=== PATIENT | female | born 1945 | race Caucasian/White ===

== ENCOUNTER → 2017-11-18 12:30 | Outpatient (CLI) | payer MEDICARE, SELFPAY ==
[2017-11-18 13:30] LABS: Creatinine, Serum 0.46 mg/dL (0.55-1.02); EST Glomerular Filtration Rate 143 mL/min (>60); Est Glom Filt Rate - Afr Amer 173 mL/min (>60)
== END ==
PROVIDERS: Family Provider Internal Medicine; PCP Internal Medicine
DX: Z01.812 Encounter for preprocedural laboratory examination (principal)
CPT/HCPCS: 36415; 82565

== ENCOUNTER 2017-11-19 16:08 | Emergency (ER) | payer MEDICARE, SELFPAY ==
[2017-11-19 16:09] VITALS: BP 140/84; PULSE 65; RESP 18; TEMP 36.2; O2SAT 97; BMI 11.2
--- NOTE | 2017-11-19 16:58 | US_ITS ---
STUDY: VENOUS DOPPLER ULTRASOUND - LEFT LOWER EXTREMITY REASON FOR EXAM: Female, 72 years old. Medial thigh pain TECHNIQUE: Ultrasound evaluation of the deep vein system to include burroughs-scale imaging and compression was performed. Burroughs-scale imaging and Doppler sonographic evaluation, including duplex spectral analysis and qualitative color flow sonography, was performed. COMPARISON: None. FINDINGS: Common Femoral Vein: Normal compression, spontaneity and augmentation. Normal color Doppler. Common Femoral Vein/Greater Saphenous Junction: Normal color flow. Deep Femoral Vein: Not visualized. Femoral Proximal: Normal color flow. Femoral Middle: Normal compression, spontaneity and augmentation. Normal color Doppler. Femoral Distal: Normal color flow. Popliteal Vein: Normal compression, spontaneity and augmentation. Normal color Doppler. Posterior Tibial Vein: Normal color flow. Peroneal Vein: Normal color flow. US/Venous Duplex Imag/Limited/Uni IMPRESSION: Left lower extremity venous Doppler exam negative for DVT. Electronically Signed: Chen Chen MD at 17:49 EDT , Service support ,
--- NOTE | 2017-11-19 18:06 | ED.VISSUMM ---
- ER Visit Summary Date of Service: 11/19/17 Chief Complaint: Left lower extremity pain and swelling since Friday History of Present Illness: The patient is a 72 F status post spine surgery October 22 who presents with pain and swelling of her left lower extremity since Friday. She is on Coumadin. INR is 2.6 as of yesterday. She states 2 weeks ago was greater than 5. She denies history of trauma. She denies chest pain or shortness of breath. She denies fever, chills night sweats. She denies hematuria, dysuria frequency urgency. She denies any back pain. She denies black or maroon stool. She noted a bruise this morning. The bruises up medial left thigh. There is tenderness to palpation. Physical Examination: Vital signs remarkable slight elevation blood pressure 140/84. HEENT exam is unremarkable. Heart is regular without murmur, gallop or rub. S1 and S2 are normal. Lungs are clear to auscultation with good movement of air bilaterally. Abdomen soft nontender normal bowel sounds. No palpable cell mass abdominal bruit. Femoral pulses are palpable bilaterally. DP PT pulses are palpable bilaterally. The left lower extremity is swollen compared to the right. There is an area of ecchymosis. Leg veins are not distended. She does have tenderness in the calf as well. There is no bruising noted over the calf. Test Results: Ultrasound of the leg reveals a hematoma with no evidence of blood clot Emergency Department Course and Treatment: Differential is hematoma versus blood clot. Since patient's well score is 3 and her entire leg is swollen concerned that this may represent a DVT. Therefore a venous duplex was obtained. Treatment Plan: Appropriate home-going instructions Disposition: Discharge to home Impression: Left leg pain and swelling secondary to hematoma High risk medication, Coumadin This note was generated with orangutrans dictation software. It may contain incorrect words, spelling, and punctuation that were not noted in review of the chart prior to signing ED Disposition - Plan for ED Patient: Disposition: Home or Assisted Living Chief Complaint: Lower Extremity Injury Instructions: ED Hematoma Referrals: Tasneem Beck MD [Primary Care Provider] - As Needed
--- NOTE | 2017-11-19 18:11 | ED.DCSUM_ITS ---
- ER Visit Summary Date of Service: 11/19/17 Chief Complaint: Left lower extremity pain and swelling since Friday History of Present Illness: The patient is a 72 F status post spine surgery October 22 who presents with pain and swelling of her left lower extremity since Friday. She is on Coumadin. INR is 2.6 as of yesterday. She states 2 weeks ago was greater than 5. She denies history of trauma. She denies chest pain or shortness of breath. She denies fever, chills night sweats. She denies hematuria, dysuria frequency urgency. She denies any back pain. She denies black or maroon stool. She noted a bruise this morning. The bruises up medial left thigh. There is tenderness to palpation. Physical Examination: Vital signs remarkable slight elevation blood pressure 140 /84. HEENT exam is unremarkable. Heart is regular without murmur, gallop or rub. S1 and S2 are normal. Lungs are clear to auscultation with good movement of air bilaterally. Abdomen soft nontender normal bowel sounds. No palpable cell mass abdominal bruit. Femoral pulses are palpable bilaterally. DP PT pulses are palpable bilaterally. The left lower extremity is swollen compared to the right. There is an area of ecchymosis. Leg veins are not distended. She does have tenderness in the calf as well. There is no bruising noted over the calf. Test Results: Ultrasound of the leg reveals a hematoma with no evidence of blood clot Emergency Department Course and Treatment: Differential is hematoma versus blood clot. Since patient's well score is 3 and her entire leg is swollen concerned that this may represent a DVT. Therefore a venous duplex was obtained. Treatment Plan: Appropriate home-going instructions Disposition: Discharge to home Impression: Left leg pain and swelling secondary to hematoma High risk medication, Coumadin This note was generated with [employer] dictation software. It may contain incorrect words, spelling, and punctuation that were not noted in review of the chart prior to signing ED Disposition - Plan for ED Patient: Disposition: Home or Assisted Living Chief Complaint: Lower Extremity Injury Instructions: ED Hematoma Referrals: Tasneem Beck MD [Primary Care Provider] - As Needed
[2017-11-19 18:16] VITALS: BP 106/40; RESP 18
[2017-11-19 18:17] VITALS: BP 106/40
== END 2017-11-19 18:17 | disposition home or self-care (01) ==
PROVIDERS: Emergency Provider Emergency Medicine; Family Provider Internal Medicine; PCP Internal Medicine
DX: S70.12XA Contusion of left thigh, initial encounter (principal); M79.652 Pain in left thigh; M79.89 Other specified soft tissue disorders; Z79.01 Long term (current) use of anticoagulants; Z79.891 Long term (current) use of opiate analgesic; Z79.899 Other long term (current) drug therapy; X58.XXXA Exposure to other specified factors, initial encounter; Y93.9 Activity, unspecified; Y92.9 Unspecified place or not applicable; Y99.9 Unspecified external cause status
CPT/HCPCS: 93971; 99282

== ENCOUNTER → 2017-11-25 16:05 | Outpatient (CLI) | payer MEDICARE, SELFPAY ==
--- NOTE | 2017-11-25 16:30 | MRI_ITS ---
MR Spine Lumbar WO/W Contrast INDICATION: Stenosis. Pt had spinal decompression surgery of L3 thru L5 on 10/22/17 and was doing well until 2 weeks ago when she began having pain again. No known new injury COMPARISON: December 2014 TECHNIQUE: Multiplanar multisequence MRI examination of the lumbar spine without and with IV contrast. 7 mL of Gadavist were given intravenously. FINDINGS: There is stable minimal retrolisthesis of L1 on L2, otherwise normal lumbar lordosis. There are stable postsurgical changes at the L5-S1 level with discectomy and disc spacer placement. New from the prior study are bilateral laminectomies at L3-4 and L4-5 without evidence of surgical hardware placement. There is no abnormal postoperative fluid collection and no abnormal epidural collection. The lumbar spinal canal and dural sac are normal in caliber. Bilateral foraminal disc osteophytes are present at L1-2 with mild to moderate bilateral neuroforaminal narrowing. Marginal disc osteophytes at L3-4 and L4-5 results in moderate bilateral neuroforaminal narrowing, similar compared to the previous exam. MRI/Spine Lumbar W/WO Contrast IMPRESSION: New postsurgical changes from bilateral laminectomies at L3-4 and L4-5. No abnormal postsurgical findings, no evidence of hemorrhage/abnormal fluid collection or spinal canal narrowing at any level Stable degenerative changes with marginal disc osteophytes resulting in neuroforaminal narrowing at L1-L2, L3-4, and L4-5. at 1901 Reported and signed by: Lissette Kramer MD Electronically Signed: Lissette Kramer MD at 18:59 EDT Tel , Service support ,
== END ==
PROVIDERS: Family Provider Internal Medicine; PCP Internal Medicine; Visit Provider Nurse Practitioner Acute Care
DX: M48.061 Spinal stenosis, lumbar region without neurogenic claudication (principal)
CPT/HCPCS: 72158; A9585

== ENCOUNTER 2017-12-26 12:00 | Outpatient (RCR) | payer MEDICARE, SELFPAY ==
--- NOTE | 2017-11-19 12:19 | HP.PTEVAL ---
Patient's Visit Information EMILE KITCHEN is a 72 year old F referred to Physical Therapy by Latoya Mayorga, with a diagnosis of Revision laminectomy L345 and formanotomy L35, microdiscectomy L345 B. Date of Evaluation: 11/19/17 Physical Therapist: Trenton Gibbons DPT, OC - Visit Plan Frequency: 3x /Week Duration: 4-6 Weeks Plan: Pt will contact family doctor regarding her worries about possible blood clot to calm her fears and diagnose as needed. 3x/week for 4-6 initially for LB ROMas tolerated starting 5/3 if doing well...in the meantime, LE strengthening to tolerance, isometric LB and core strengthening activities. Modalities for pain control as needed. Eventual progression to body mechanics and RTW activities. Pt is currently awaitiing MRI for LB as doctor thinks she may have reherniated(according to patient) and will hold on PT until that is done or condition improves. Pain in L adductor and outside hip has unusual onset and presentation) - Subjective Subjective: Had laminectomy and foraminotomy L3-5 10/22 and was doing well. Was doing great until last Friday when she got L leg pain suddently and numby /tingly. Was insidious onset just getting up from chair. Thsi pain has been very limiting for the last 4 days but slightly better. Prior to surgery had L hip and side pain. Had pain management injections which helped for 3 weeks initially then less. Saw surgeon Dr. Latif and had MRI and needed this back surgery as the pain was coming from her back. That pain was gone. Numbness remains in L post hip from previous RFD treatment. Current pain is posterior hip on L and groin. This pain came all of a sudden last Friday. Makes it hard to sit on toilet. Transferring from sit tostand and vice versa is painful. Will have an MRI next week on Friday as she saw surgeon and he thinks she is herniated again. Not sleeping really well since last Friday. 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 Is off until at least January 14. Currently not allowed to bend over as she cannot due to this new pain. 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 Dresses self with increased time and modifications, using bench for shower. HEP is UE and LE movements sitting in chair and lying and doing LE ROM. They hurt tooo much since last Friday. Uses cane now for pain as L WB is hard, did not need it prior to last Friday getting worse. - Pain L LB and groin Pain Intensity (Out of 10): 8 Pain Intensity Range: 5, 9 Comment: constant since last . - Objective Uses cane and wide JD to walk slow and L antalgia. Transfers are I with UE but painful. Throbbing. can walk without cane but more antalgia. Trasnferring to and fro supine I btui painful appearing shear force is problem. Very tender L adductor group, also painful to contract and stretch this muscle group. Mildly tender anterior lateral hip to palpation adn stretch, 0 degrees extension secondary to pain on L side. L Hip AROM WFL but slow and painful. L knee AROM WFL slow extension - slump and SLR. L ankle and R ankle full aROM and 4/5 strength. L knee 4-/5 flex and ext strength as is R. Hip L 3+ in all directions due to pain with contractions. Patient sits I buit takes weight off L side. reflexes 1/3 patella and achilles R and L. Sensation diminished in L lateral posterior leg to trochanter minimially. LB AROM ext to neutral and increase L LB pain, flexion is 75% limited and uncomfortable, B SB mod limited. Overall presentation is antalgic to WB L side and shear force to transition up/down to supine very painful. - Goals Goal 1:: Patient painfree at rest and walk without antalgia 300 feet without AD> Goal Time Frame: 4-6 Weeks Goal 2:: Patient safe and I to ambulate into and out of grocery and restaurants. Goal Time Frame: 4-6 Weeks Goal 3:: pateint sleep without interruption Goal Time Frame: 4-6 Weeks Goal 4:: I approp HEP to minimize future problems. Goal Time Frame: 4-6 Weeks Goal 5:: Plan to return to work. Goal Time Frame: 4-6 Weeks Goal 6:: Shoes and socks on and dress without need for low pressure boiler operator. Goal Time Frame: 4-6 Weeks - Rehabilitation Potential Physical Therapy Diagnosis: S/P LB surgery revision. Was subjectively doing well until sudden onset increased pain last Friday and continues to be hard to walk due to L groin and post hip pain. Has seen surgeon and will have MRI next week. Rehabilitation Potential: Fair - Anticipated Interventions Patient/Client Instruction: Educate patient on: Condition, Plan of Care For the Purpose of:: To decrease pain, To increase ROM, To improve ability to perform ADL's Therapeutic Exercise to Include: Strength training, Passive ROM, Active ROM, Dynamic Lumbar Stabilization For the Purpose of:: To decrease pain, To increase ROM, To improve muscle performance and motor function, To improve performance and independence with ADL's, To improve ability of physical actions for home/community/work/leisure, To improve gait and locomotor functions TENS: Yes Cryotherapy (ice pack, ice massage): Yes Comment: careful with numbness. For the Purpose of:: To decrease pain Thank you for the opportunity to evaluate your patient. For Medicare and Medicare HMO plans, please review the plan of care and approve it. It will need to be FAXED BACK to us at [phone] for Medicare purposes. Please let me know if there are questions or concerns regarding this plan of care. Physician Signature: Date:
--- NOTE | 2018-03-05 12:12 | HP.PTDCSUM_ITS ---
HP - PT D/C Summary It has been my pleasure to treat EMILE KITCHEN under orders from Latoya Mayorga, , for the diagnosis of Revision laminectomy L345 and formanotomy L35 , microdiscectomy L345 B for a total of 7 visit(s). Discharge Date: 12/26/17 Please see the following information for a summary of their discharge status. - Subjective Subjective: A lot better. Not in a lot of pain to 1-2/10 Worse in evenings if overdoes it with cleaning pool, mowing lawn etc. Sleeping good on ambien. Fell about two weeks ago and landed on Left arm adn hip but did not hurt back. Will be on vacation next week and wants to return on the 01/12. Steps can still be an issue wth weight through L leg hurting tailbone area.(Been that way since before surgery). - Pain L LB and groin Pain Intensity (Out of 10): 2 - Objective Objective/Function: R leg 3/8 inch longer, will wear L heel lift. L trendelenberg in gait but walking safe and I. Trasnfers I. Steps are reciprocal without rail but L side obviously weak. OVERALL BETTER, NEEDS TO CONTINUE TO STRENGTHEN l HIP AND LEG AND WILL DO THIS. DOES NTO WISH TO CONTINUE PT. - Goals Goal 1:: Patient painfree at rest and walk without antalgia 300 feet without AD> Goal Progress: Goal Met Goal 2:: Patient safe and I to ambulate into and out of grocery and restaurants. Goal Progress: Goal Met Goal 3:: pateint sleep without interruption Goal Progress: Goal Met Goal 4:: I approp HEP to minimize future problems. Goal Progress: Goal Met Goal 5:: Plan to return to work. 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 Goal Progress: Goal Met - Plan Plan: D/C - D/C Information Discharge Comments: Pt will continue gyma dn home ex to strengthen L LE, use heel lift in L for pain. Willc ontact doctor if problems. If there are questions or concerns regarding this patient's physical therapy, please feel free to call me at [phone]. Thank you for the referral of this patient. Sincerely, Trenton Gibbons, DPT, OC
== END 2017-12-26 19:00 | disposition home or self-care (01) ==
LOC: PT 12:00
PROVIDERS: Family Provider Internal Medicine; PCP Internal Medicine; Visit Provider Nurse Practitioner Acute Care
DX: M48.061 Spinal stenosis, lumbar region without neurogenic claudication (principal)
CPT/HCPCS: 97110; 97162; 97530; G8978; G8979

== ENCOUNTER → 2018-03-26 11:07 | Outpatient (CLI) | payer MEDICARE, SELFPAY | PROVIDERS: Family Provider Internal Medicine; PCP Internal Medicine; Visit Provider Internal Medicine Cardiovascular Disease | DX: I35.1 Nonrheumatic aortic (valve) insufficiency (principal); I36.1 Nonrheumatic tricuspid (valve) insufficiency; I48.0 Paroxysmal atrial fibrillation | CPT/HCPCS: 93306 ==

== ENCOUNTER 2019-03-01 10:30 | Outpatient (RCR) | payer MEDICARE, SELFPAY ==
--- NOTE | 2018-09-29 17:55 | HP.PTEVAL ---
Patient's Visit Information EMILE KITCHEN is a 73 year old F referred to Physical Therapy by Alonso Langley MD with a diagnosis of R shoulder arthropathy.s/p 09/21 rev TSA. Date of Evaluation: 09/29/18 Physical Therapist: Trenton Gibbons, DPT, OCS, CSCS - Visit Plan Frequency: 1-2x /Week Duration: 4 Months Plan: 1-2x/week for up to 4 months as needed for ... P/AA/AROM per protocol. PROM until 10/11 unless otherwise noted in protocol. May treat L UT pain with STM, US thermal, stretching and postural strength. - Subjective Findings: REverse TSA 09/21/[address] Langley. did L one back in 2013. Could not eat with it or fucntionally move it past 90 prior. Was painful /10 prior to surgery. In sling for a week and a half. Sleeping in it . Sleeping OK but not overly tired due to inactive. Has L c/s pain and CORONA maybe from strap of sling. Pain since surgery not bad. 3-4/10 and doesn't get much worse than that. If moves wrong can get up to 8/10. Precautions are to keep it mihaela a lsing. Back to doctor in a month. Basic aDLS : Dressing self with mdofiications. Doing some laundry with L UE. Is R handed. Has been using L hand for years due to pain. HEP: wrist AROM and PROM by . 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 Wants to bowl and golf when done but has nt bowled in 15 years due to arm pain. Played golf a few years ago. - Pain R shoulder. Pain Intensity (Out of 10): 3 Pain Intensity Range: 3, 8 L UT Pain Intensity (Out of 10): 4 Pain Intensity Range: 4, 8 - Objective c/s ROM 60 B rotation with pain to the Right and 45 ext. Posture is leaned to L and forward head, R scap elevated. Scapular ROM is slow on R but near full. Incision is dry and healing, mild scar tissue and very little discoloration. No igns of excessive redness heat or swelling. wrist and thumb and elbow AROM full, slow at end of elbow flexion and extension but has the motion. Tender in L UT neck area. - c/s compression. PROM flexion R shoulder 90 and abd 50 and ext rotation 3 degrees and IR not tested. Strength not tested R UE, L UE 4+. - Goals Goal 1:: Patient progress with activities per protocol back to golf swing. Goal Time Frame: 12-16 Weeks Goal 2:: RPOM 145 flexion, 45 ext rotation and 130 abd Goal Time Frame: 2-4 Weeks Goal 3:: Patient sleep without waking due to pain or discomfort. Goal Time Frame: 2-4 Weeks Goal 4:: AROM to 140 elevation and 45 ext rotation as allowed by protocol to make dressing easier and safe. Goal Time Frame: 6-8 Weeks Goal 5:: Pt feel 75% back to normal motion R shoulder Goal Time Frame: 6-8 Weeks - Rehabilitation Potential Physical Therapy Diagnosis: s/p rev TSA 09/21 Rehabilitation Potential: Good - Anticipated Interventions Patient/Client Instruction: Educate patient on: Condition, Plan of Care For the Purpose of:: To decrease pain, To increase ROM, To increase oxygenation perfusion, To improve muscle performance and motor function, To improve ability to perform ADL's, To improve ability of physical actions for home/community/work/leisure Therapeutic Exercise to Include: Strength training, Postural training, Passive ROM, Active ROM For the Purpose of:: To decrease pain, To increase ROM, To improve muscle performance and motor function, To increase tolerance to activity/condition/position, To improve ability of physical actions for home/community/work/leisure Manual Therapy Techniques to Include: Soft tissue mobilization Comment: L UT For the Purpose of:: To decrease pain, To decrease swelling/inflammation, To improve nutrient delivery to tissue TENS: Yes - L UT Cryotherapy (ice pack, ice massage): Yes Ultrasound (thermal/non thermal): Yes - thermal L UT For the Purpose of:: To decrease pain Thank you for the opportunity to evaluate your patient. For Medicare and Medicare HMO plans, please review the plan of care and approve it. It will need to be FAXED BACK to us at [phone] for Medicare purposes. For Medicare only, by signing this I certify the plan of care. Please let me know if there are questions or concerns regarding this plan of care. Physician Signature: Date:
--- NOTE | 2018-10-29 10:59 | HP.PTREVAL_ITS ---
Alonso Langley MD, It has been my pleasure to treat EMILE KITCHEN over the last 9 visits for R shoulder arthropathy s/p 09/21 rev TSA. Please see the progress note below for an update on the physical therapy plan of care! Subjective: No new c/o. States no pain, just a little soreness. States she's ready for RTW. No pain except with PAROM to 6/10 trasniently. Sleep is OK. No sling. Tod doctor next Friday. HEP Cedric, cane supine and ext rotation, IR with towel, isometrics. (From recheck) Objective/Function: Pt with good elizabeth to strength progressions. Still painful at first with PROM, but after a while moving slowly with VCs to relax, pt able to elizabeth more. From recheck: PROM 130 flexion, 115 abd, 65 ext rotation all with firm end feel. IR to L4. AROM ext rotation is nil(long time inable to do this, years), flexion is 25, abd is 20. g etting contraction of deltoid adn ext rotators but h/o weakness makes aROM difficult. Biceps and tricep 4/5, IR 4-, er 2. Excellent progress with Prom and AAROM, AROM weak and ext rotation strength very weak expectedly. Plan Plan: 2x/week for 4-6 weeks to work on strength after doctor f/u next week and per protocol. FES to ext rotators appropriate, progress ion of AAROM/AROM and gentle strength progression shoulder na dposture toward I via HEP. Continue toward goals with fair prognosis Goals Goal 1:: Patient progress with activities per protocol back to golf swing. Goal Time Frame: 12-16 Weeks Goal Progress: Progressing Goal 2:: RPOM 145 flexion, 45 ext rotation and 130 abd Goal Time Frame: 2-4 Weeks Goal Progress: Progressing, not fullymet Goal 3:: Patient sleep without waking due to pain or discomfort. Goal Time Frame: 2-4 Weeks Goal Progress: Goal Met Goal 4:: AROM to 140 elevation and 45 ext rotation as allowed by protocol to make dressing easier and safe. Goal Time Frame: 6-8 Weeks Goal Progress: slow Goal 5:: Pt feel 75% back to normal motion R shoulder Goal Time Frame: 6-8 Weeks Goal Progress: Progressing Anticipated Interventions Patient/Client Instruction: Educate patient on: Condition, Plan of Care For the Purpose of:: To decrease pain, To increase ROM, To increase oxygenation perfusion, To improve muscle performance and motor function, To improve ability to perform ADL's, To improve ability of physical actions for home/community/work/leisure Therapeutic Exercise to Include: Strength training, Postural training, Passive ROM, Active ROM For the Purpose of:: To decrease pain, To increase ROM, To improve muscle performance and motor function, To increase tolerance to activity/ condition/position, To improve ability of physical actions for home/community/work/leisure Manual Therapy Techniques to Include: Soft tissue mobilization Comment: L UT For the Purpose of:: To decrease pain, To decrease swelling/inflammation, To improve nutrient delivery to tissue TENS: Yes - L UT Cryotherapy (ice pack, ice massage): Yes Ultrasound (thermal/non thermal): Yes - thermal L UT For the Purpose of:: To decrease pain Please do not hesitate to contact me at [phone] by phone or if you have questions or concerns regarding this new plan of care! Sincerely, Trenton Gibbons, DPT, OCS, CSCS
--- NOTE | 2018-12-03 11:29 | HP.PTREVAL ---
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 Please see the progress note below for an update on the physical therapy plan of care! Subjective: Doing OK. Came in early to do gym workout. No questions or concerns with it at this point as the machines are straight foreward. Still cannot do R arm I of left on pushing and lifting exercises. No pain in arm lately. Not since yesterday's therapy. Sleep is fine with shoulder. Working and using R arm better btu still can' lift it on its own. Averaging 5 hours of work adn hard to lift R arm but better than prior to surgery. Dressing adn cleaning at home managing not normal with R UE but doable. Alot of improvement but still needs to lift better. Can shave legs without cutting self now. Sees surgeon Friday. Will try golfing this weekend on short course. Objective/Function: Golf club swing gently today without pain. AROM R: flexion 80, abd 85, ext rotation not to neutral, IR full. PROM R : flexion 138, abduction 140. ext rotation 65 and can hold it to neutral when placed in ext rotation. IR WNL. strength ext rotatin 2+, IR 4+, flexion 3-, abd 3-, bi and tri 4-. Hard for patient to ext rotate adn do any activities but is significantly better with motion adn paina dn function than prior to surgery. DOING WELL WITH SLOW IMPROVEMENT EXCEPT FOR ACTIVE EXT ROTATION, APPROPRIATE TO COTNINUE TO MONITOR FOR PROGRESSION OF STRENGTH AND FUNCTION. Plan Plan: WEEKLY TO EVERY OTHER X 2 MONTHS.TO PROGRESS hep ADN GYM EX PER TOLERANCE. Goals Goal 1:: Patient progress with activities per protocol back to golf swing. Goal Time Frame: 12-16 Weeks Goal Progress: will try this weekend. Goal 2:: RPOM 145 flexion, 45 ext rotation and 130 abd Goal Time Frame: 2-4 Weeks Goal Progress: near met Goal 3:: Patient sleep without waking due to pain or discomfort. Goal Time Frame: 2-4 Weeks Goal Progress: Goal Met Goal 4:: AROM to 140 elevation and 45 ext rotation as allowed by protocol to make dressing easier and safe. Goal Time Frame: 6-8 Weeks Goal Progress: elevation progress, notER Goal 5:: Pt feel 75% back to normal motion R shoulder Goal Time Frame: 6-8 Weeks Goal Progress: Progressing Goal 6:: Cotninue to show functional improvement with home workout to full golf swing and manage strength on own. And less than 15% disability on quickdash Goal Time Frame: 6-8 Weeks Goal Progress: NEW GOAL Anticipated Interventions Patient/Client Instruction: Educate patient on: Condition, Plan of Care For the Purpose of:: To decrease pain, To increase ROM, To increase oxygenation perfusion, To improve muscle performance and motor function, To improve ability to perform ADL's, To improve ability of physical actions for home/community/work/leisure Therapeutic Exercise to Include: Strength training, Postural training, Passive ROM, Active ROM For the Purpose of:: To decrease pain, To increase ROM, To improve muscle performance and motor function, To increase tolerance to activity/condition/position, To improve ability of physical actions for home/community/work/leisure Manual Therapy Techniques to Include: Soft tissue mobilization Comment: L UT For the Purpose of:: To decrease pain, To decrease swelling/inflammation, To improve nutrient delivery to tissue TENS: Yes - L UT Cryotherapy (ice pack, ice massage): Yes Ultrasound (thermal/non thermal): Yes - thermal L UT For the Purpose of:: To decrease pain Please do not hesitate to contact me at [phone] by phone or if you have questions or concerns regarding this new plan of care! Sincerely, Trenton Gibbons, DPT, OCS, CSCS
--- NOTE | 2019-01-15 09:59 | HP.PTREVAL ---
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 Please see the progress note below for an update on the physical therapy plan of care! Subjective: Did well while on vacation. Neck better until slight flare the other down. R shoulder feels good...better tahn L. Didn't do a whole lot of ex while gone. Could cast fishing line while gone, Also can reach tooth brush now with R UE. L one hurts. Did weight reducing technician band before she left. Hasn't been in gym in a while. Objective/Function: R Ext rotation strength 3-, IR 4+, flexion 3-, abd 3-. Subjectively doing excellent as she is using the R UE functionally more and more with casting and reaching for toothbrush, things she could not do for years. SStill would like to be able to get hand up to hair. Has RPOM 130 degrees but actively only to 100 and seems limited by ext rotator weakness. Able in eutral position to hold neutral ext rotation when place but can only get forearm off tummy about one inch actively. Still very weak in flexion and abduction likely due to poor stability due to ext rotator weakness. Appropriate to cotninue to monitor toward same goals with questionable prognosis. Plan Plan: Per doctor, monitor every 2-3 weeks until February f/u to progress ex adn ensure progress. Look at adding OH strength next session if pt back to roginal ex without discomfort Goals Goal 1:: Patient progress with activities per protocol back to golf swing. Goal Time Frame: 12-16 Weeks Goal Progress: golfed pnce Goal 2:: RPOM 145 flexion, 45 ext rotation and 130 abd Goal Time Frame: 2-4 Weeks Goal Progress: slow, arduous Goal 3:: Put hand on head to do hair Goal Time Frame: 6-8 Weeks Goal Progress: NEW GOAL Goal 4:: AROM to 140 elevation and 45 ext rotation as allowed by protocol to make dressing easier and safe. Goal Time Frame: 6-8 Weeks Goal Progress: Not Progressing Goal 5:: Pt feel 75% back to normal motion R shoulder Goal Time Frame: 6-8 Weeks Goal Progress: Progressing Goal 6:: Cotninue to show functional improvement with home workout to full golf swing and manage strength on own. And less than 15% disability on quickdash Goal Time Frame: 6-8 Weeks Goal Progress: slow progress. Anticipated Interventions Patient/Client Instruction: Educate patient on: Condition, Plan of Care For the Purpose of:: To decrease pain, To increase ROM, To increase oxygenation perfusion, To improve muscle performance and motor function, To improve ability to perform ADL's, To improve ability of physical actions for home/community/work/leisure Therapeutic Exercise to Include: Strength training, Postural training, Passive ROM, Active ROM For the Purpose of:: To decrease pain, To increase ROM, To improve muscle performance and motor function, To increase tolerance to activity/condition/position, To improve ability of physical actions for home/community/work/leisure Manual Therapy Techniques to Include: Soft tissue mobilization Comment: L UT For the Purpose of:: To decrease pain, To decrease swelling/inflammation, To improve nutrient delivery to tissue TENS: Yes - L UT Cryotherapy (ice pack, ice massage): Yes Ultrasound (thermal/non thermal): Yes - thermal L UT For the Purpose of:: To decrease pain Please do not hesitate to contact me at [phone] by phone or if you have questions or concerns regarding this new plan of care! Sincerely, Trenton Gibbons, DPT, OCS, CSCS
--- NOTE | 2019-03-01 10:57 | HP.PTDCSUM_ITS ---
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 Discharge Date: 03/01/19 Please see the following information for a summary of their discharge status. - Subjective Subjective: Has ulnar impaction syndrome on R and is in brace. L shoulder doing OK. Aches with exercises but no pain. Doesn't keep he rup at night. Doing exercises at home except for push ups whcih she cannot do with L arm injury. Still working and R arm doing everything but needs to lift R UE with L to get it OH. - Pain R shoulder. Pain Intensity (Out of 10): 0 L UT Pain Intensity (Out of 10): 0 - Overall Improvement % Improvement: 60 - Objective Objective/Function: 110 active flexion R and 105 abd. PROM is 135. Can hold 135 flexion when placed. Improved holding of neutral ext rotation R when placed but unable to attain it herself. IR is full. Strength is 3/5 flexiona dn abd in range. 3- ext rotation and 4- IR. SLOW BUT NOT FUNCTIONAL IMPROVEMENTS OVERALL IN R UE FLEXION/ABD/ER. PT FRUSTRATED AND WILL RETURN TO DOCTOR NEXT WEEK. SHE HAS BEEN WORKING HARD ON HOME EX BUT NOT IMPROVING SHE WOULD LIKE. - Goals Goal 1:: Patient progress with activities per protocol back to golf swing. Goal Progress: Progressing Goal 2:: RPOM 145 flexion, 45 ext rotation and 130 abd Goal Progress: slow, arduous Goal 3:: Put hand on head to do hair Goal Progress: PASSIVELY ONLY Goal 4:: AROM to 140 elevation and 45 ext rotation as allowed by protocol to make dressing easier and safe. Goal Progress: Not Progressing Goal 5:: Pt feel 75% back to normal motion R shoulder Goal Progress: Not Progressing Goal 6:: Cotninue to show functional improvement with home workout to full golf swing and manage strength on own. And less than 15% disability on quickdash Goal Progress: slow progress. - Plan Plan: D/C PT BACK TO DOCTOR. - D/C Information Discharge Comments: PT FRUSTRATED AND SENT BACK TO DOCTOR FOR OTHER OPTIONS. CAN CONTINUE HEP I. If there are questions or concerns regarding this patient's physical therapy, please feel free to call me at [phone]. Thank you for the referral of this patient. Sincerely, Trenton Gibbons, DPT, OCS, CSCS
== END 2019-03-01 19:00 | disposition home or self-care (01) ==
LOC: PT 10:30
PROVIDERS: Family Provider Internal Medicine; PCP Internal Medicine; Referring Provider Orthopaedic Surgery; Visit Provider Orthopaedic Surgery
DX: Z96.611 Presence of right artificial shoulder joint (principal)
CPT/HCPCS: 97110; 97140; 97162; 97530

== ENCOUNTER → 2019-03-15 | Outpatient (CLI) | payer MEDICARE, SELFPAY ==
[2019-03-09 10:44] VITALS: BMI 24.3
--- NOTE | 2019-03-15 11:53 | RAD_ITS ---
STUDY: X-RAY CHEST REASON FOR EXAM: Female, 73 years old. Shortness of breath TECHNIQUE: PA and lateral views of the chest. COMPARISON: 02/14/2016. FINDINGS: Bilateral shoulder joint replacements, with the one on the right new since prior study The lungs are clear and expanded. There is no demonstrated pleural abnormality. Normal size heart. Normal mediastinum and fay. Normal visualized pulmonary arteries. Normal visualized aortic arch and descending thoracic aorta. There are diffuse degenerative changes of the visualized thoracic spine. Normal visualized ribs, clavicles, and shoulders. There is no demonstrated abnormality of the visualized soft tissue structures of the upper abdomen. RAD/Chest PA and Lateral IMPRESSION: No acute intrathoracic process. Electronically Signed: Alfredo Kong MD at 15:55 EDT Tel [phone], Service support ,
[2019-03-15 12:54] LABS: Absolute Lymphocyte Count 2.77 X10^3/uL (0.83-4.51); Basophil# 0.02 X10^3/uL; Basophil% 0.2 % (0-1); Eosinophil# 0.08 X10^3/uL; Eosinophils% 0.9 % (0-5); Hematocrit 36.3 % (37-47); Hemoglobin 11.6 g/dL (12.0-15.0); Lymphocyte # 2.77 X10^3/ul (4.0); Lymphocyte % 31.6 % (19-41); Mean Corpuscular Hgb 29.7 pg (27.0-32.0); Mean Corpuscular Volume 92.8 fL (81-99); Mean Platelet Vol. 10.6 fl (6.2-12.0); Monocyte# 0.87 X10^3/uL; Monocyte% 9.9 % (0-10); NRBC Flagged by Analyzer 0 % (0-5); Neutrophil # 4.98 X10^3/uL (2.7-7.7); Neutrophil % 56.9 % (47-70); Platelet Count 328 K/mm3 (150-450); RBC Distribution Width CV 12.9 % (11.6-14.6); RBC Distribution Width SD 43.8 fl (35.1-43.9); Red Blood Count 3.91 M/mm3 (4.2-5.4); White Blood Count 8.8 K/mm3 (4.4-11.0)
[2019-03-15 13:16] LABS: Anion Gap 5 (5-15); BUN 38 mg/dL (7-18); BUN/Creat Ratio 42.1 RATIO (10-20); Chloride 105 mmol/L (98-107); EST Glomerular Filtration Rate 65 mL/min (>60); Est Glom Filt Rate - Afr Amer 79 mL/min (>60); Glucose 77 mg/dL (74-106); Potassium 4.1 mmol/L (3.5-5.1); Sodium Level 142 mmol/L (136-145)
[2019-03-15 13:22] LABS: BNP,B-Type NATRIURETIC PEPTIDE 211.9 pg/mL (0-100)
== END | disposition home or self-care (01) ==
PROVIDERS: Family Provider Internal Medicine; PCP Internal Medicine; Referring Provider Nurse Practitioner Family; Visit Provider Nurse Practitioner Family
DX: I35.1 Nonrheumatic aortic (valve) insufficiency (principal); I48.0 Paroxysmal atrial fibrillation; R06.09 Other forms of dyspnea
CPT/HCPCS: 36415; 71046; 80048; 83880; 85025

== ENCOUNTER → 2019-04-07 | Outpatient (CLI) | payer MEDICARE, SELFPAY ==
[2019-03-23 08:50] VITALS: BMI 24.7
--- NOTE | 2019-04-07 07:25 | MRI_ITS ---
STUDY: MRI LEFT WRIST WITHOUT CONTRAST REASON FOR EXAM: Left wrist swelling, old injury, TFCC injury. TECHNIQUE: Standardized fat and water weighted pulse sequences were obtained in all 3 orthogonal planes. COMPARISON: None. FINDINGS: There is very mild subchondral bone edema of the distal radius (inversion recovery coronal image 14). There is an ossicle adjacent to the ulnar styloid process (T1 coronal images 12, 13) with mild bone edema (inversion recovery coronal image 12) suggestive of remote fracture without osseous union. There is a small effusion with synovitis of the distal radioulnar joint and mild dorsal subluxation (inversion recovery axial images 17-19). There is a central perforation of the radial aspect of the triangular fibrocartilage (inversion recovery coronal images 12-14). There is a subchondral cyst at the proximal ulnar aspect of the lunate with mild adjacent bone edema (inversion recovery coronal images 11-13) and a small subchondral cyst of the proximal radial aspect of the triquetrum (inversion recovery coronal image 12). There is mild bone edema of the scaphoid, trapezium, trapezoid, capitate and hamate (inversion recovery coronal images 14-16) with small cysts in the multiple carpal bones. Normal radiocarpal, intercarpal and midcarpal articulations. Normal pisotriquetral articulation. Normal visualized interosseous scapholunate ligament. There is a small volume of fluid in the sixth dorsal compartment (inversion recovery axial images 7-9, 21, 22). There is tenosynovitis of the flexor carpi radialis (inversion recovery axial images 15-17). There is a small volume of fluid surrounding the flexor tendons proximal to the carpal tunnel (inversion recovery axial images 19, 20). Normal carpal tunnel with a normal median nerve. Normal carpometacarpal articulation of the thumb. There are small subchondral cysts at the second and third metacarpal bases with mild bone edema in the proximal second metacarpal (inversion recovery coronal image 16, 17). There is a nondisplaced fracture of the fourth metacarpal base (T1 coronal images 14, 15) with bone edema (inversion recovery coronal images 14, 15). There is very mild bone edema in the fifth metacarpal base (inversion recovery coronal image 11). There is edema in the ulnar subcutis adipose space. 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 Mild extensor carpi ulnaris tenosynovitis. Flexor tenosynovitis including the flexor carpi radialis. Nondisplaced fracture of the fourth metacarpal base. Ossicle at the distal aspect of the ulnar styloid process suggestive of remote fracture. Bone edema of multiple carpal bones, distal radius and second and fifth metacarpal bases. Small effusion with synovitis of the distal radioulnar joint. Electronically Signed: Jovanny Vergara MD at 9:49 EDT Tel , Service support ,
== END | disposition home or self-care (01) ==
PROVIDERS: Family Provider Internal Medicine; PCP Internal Medicine; Referring Provider Orthopaedic Surgery Hand Surgery; Visit Provider Orthopaedic Surgery Hand Surgery
DX: S69.82XA Other specified injuries of left wrist, hand and finger(s), initial encounter (principal)
CPT/HCPCS: 73221

== ENCOUNTER → 2019-04-19 | Outpatient (CLI) | payer MEDICARE, SELFPAY ==
[2019-03-23 08:50] VITALS: BMI 24.7
[2019-04-19 16:11] LABS: Anion Gap 9 (5-15); BUN 33 mg/dL (7-18); BUN/Creat Ratio 39.1 RATIO (10-20); Calcium,Total 8.8 mg/dL (8.5-10.1); Chloride 103 mmol/L (98-107); Creatinine, Serum 0.84 mg/dL (0.55-1.02); EST Glomerular Filtration Rate 70 mL/min (>60); Est Glom Filt Rate - Afr Amer 85 mL/min (>60); Glucose 112 mg/dL (74-106); Potassium 4.1 mmol/L (3.5-5.1); Sodium Level 142 mmol/L (136-145)
== END | disposition home or self-care (01) ==
LOC: LAB 14:59
PROVIDERS: Family Provider Internal Medicine; PCP Internal Medicine; Referring Provider Physician Assistant Medical; Visit Provider Physician Assistant Medical
DX: I10 Essential (primary) hypertension (principal)
CPT/HCPCS: 36415; 80048

== ENCOUNTER → 2019-07-14 11:04 | Outpatient (CLI) | payer MEDICARE, SELFPAY ==
[2019-07-14 10:07] VITALS: BMI 26.2
[2019-07-14 12:05] LABS: T4 Free Direct 1.38 ng/dL (0.76-1.46); Thyroid Stim Hormone (TSH) 3.75 uIU/mL (0.358-3.74)
== END ==
PROVIDERS: Family Provider Internal Medicine; PCP Internal Medicine; Referring Provider Internal Medicine Cardiovascular Disease; Visit Provider Internal Medicine Cardiovascular Disease
DX: I48.0 Paroxysmal atrial fibrillation (principal); E78.5 Hyperlipidemia, unspecified; I38 Endocarditis, valve unspecified; R09.89 Other specified symptoms and signs involving the circulatory and respiratory systems; I10 Essential (primary) hypertension; R06.09 Other forms of dyspnea
CPT/HCPCS: 36415; 84439; 84443

== ENCOUNTER → 2019-07-16 06:52 | Outpatient (CLI) | payer MEDICARE, SELFPAY ==
[2019-07-14 10:07] VITALS: BMI 26.2
--- NOTE | 2019-07-16 07:52 | RAD_ITS ---
STUDY: X-RAY CHEST REASON FOR EXAM: Female, 73 years old. SOB/DYSPNEA; -- H/O PNEUMONIA -- H/O SILENT STROKES X 3 TECHNIQUE: PA and lateral views of the chest. COMPARISON: 03/15/2019 FINDINGS: The lungs are clear and expanded. There is no demonstrated pleural abnormality. Normal size heart. Normal mediastinum and fay. Normal visualized pulmonary arteries. There is atherosclerotic calcification of the aortic arch with tortuosity. There is demineralization of the osseous structures. Bilateral shoulder replacements noted. There is no demonstrated abnormality of the visualized soft tissue structures of the upper abdomen. RAD/Chest PA and Lateral IMPRESSION: No acute cardiopulmonary process. Stable exam. Electronically Signed: Cisco Retana MD (Brooks) at 11:44 EST , Service support ,
--- NOTE | 2019-07-19 08:13 | PFT ---
INTRODUCTION: The patient is a 73-year-old female that presents for pulmonary function studies secondary to a diagnosis of shortness of breath. Respiratory therapy reports good patient effort. Bronchodilators were used during testing. INTERPRETATION: Forced expiration spirometry demonstrates the presence of a moderately severe large airways obstructive ventilatory defect. There was no significant response to aerosolized bronchodilators, based upon strict ATS criteria. Spirograms are of good quality and plateau gradually indicating slow emptying of the lungs. Body plethysmography was performed and reveals an elevated RV to 141% of predicted, indicative of underlying air trapping. Diffusing capacity by single breath CO is mildly reduced to 60% of predicted. IMPRESSION: Irreversible moderately severe large airways obstructive ventilatory defect with associated air trapping and mild reduction in diffusing capacity.
== END ==
PROVIDERS: Family Provider Internal Medicine; PCP Internal Medicine; Referring Provider Internal Medicine Cardiovascular Disease; Visit Provider Internal Medicine Cardiovascular Disease
DX: I48.0 Paroxysmal atrial fibrillation (principal); I38 Endocarditis, valve unspecified; I10 Essential (primary) hypertension; E78.5 Hyperlipidemia, unspecified; R06.09 Other forms of dyspnea; R09.89 Other specified symptoms and signs involving the circulatory and respiratory systems
CPT/HCPCS: 71046; 94060; 94726; 94729

== ENCOUNTER 2019-07-19 13:00 | Outpatient (RCR) | payer MEDICARE, SELFPAY ==
[2019-03-23 08:50] VITALS: BMI 24.7
--- NOTE | 2019-06-11 07:53 | HP.OTEVAL_ITS ---
Patient's Visit Information EMILE KITCHEN is a 73 year old F, referred to Occupational Therapy by Cecy Hassan MD, with a diagnosis of TFCC of left wrist/left wrist pain. Date of Evaluation: 06/07/19 Occupational Therapist: Komal Gunter, GRANT/Goran, CHT - Subjective Subjective: This 73 year old female was seen for OT eval following a left wrist proximal row carpectomy, dorrach procedure on 05/06/19. Pt states she suffered with wrist pain for years. 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 pt is wanting to return when she regains her ROM and strength. Pt arrives with orthosis on and in no need of adj. Pt reports she is feeling better but frustrated because she is not able to use her left hand for daily tasks. - Pain left wrist 3 Pain Intensity Range: 2, 6 - ROM Forearm: right WNL supination left 40* Wrist: right 65/45 left 10/15 - Strength Whale Trainer: right 30# left 15# Lateral Pinch: right 10# left 4# - Sensation Sensation Comments: denies - Quick DASH-Disab of Arm,Shoulder& Hand Quick DASH Score: 68.1800 - Hand/Wrist Evaluation Total Score of Pain & Functional Sections: 66 - Goals Goal:100% adherence to protocol: Yes Comment: proximal row carpectomy and Darrach resection Goal:Daily scar massage when approriate: Yes Goal:No pain with affected hand use: Yes Goal:Full use of affected hand in daily activities including: Yes Goal:Decrease scar hypersensitivity: Yes Comment: ROM of left wrist /left perioperative assistant strength Other Goal: pt will demo a functional ROM following sx with no pain greater than 1/10 with use of daily occupations by d/c. Pt will demo a left perioperative assistant strength at 20# to increase pts ind. with use of left UE for daily occupations by d/c - Rehabilitation General Assessment: Pt is currently 4 weeks s/p a left wrist proximal row carpectomy; darrach procedure with transferred portion of the pronator quadratus. she is demo with limited ROM and strength decreasing pts IND. with ADLs and IADLS. Pt would benefit from skilled OT services 2x week for 8 weeks to return pt to [facility]. Today pt ed on AROM ex for wrist, forearm, elbow and shoulder. Therapist also reviewed proximal row carpectomy and darrach procedure protocol with pt pt demo understanding and agree to POC. Rehabilitation Potential: Good - Anticipated Interventions Anticipated Interventions: Early Active Motion, A/AAROM/PROM, Strengthening, Scar Care, Desensitization, Modalities, Orthoses, Joint Protection/Energy Conservation - Visit Plan Frequency: 2-3x /Week Duration: 4 Weeks TEXT: Thank you for the opportunity to evaluate your patient. For Medicare and Medicare HMO plans, please review the plan of care and approve it. It will need to be FAXED BACK to us at [phone] for Medicare purposes. Please let me know if there are questions or concerns regarding this plan of care. Physician Signature: Date:
--- NOTE | 2019-06-29 13:38 | OTREVAL_ITS ---
Cecy Hassan MD, It has been my pleasure to treat EMILE KITCHEN over the last 5 visits for TFCC of left wrist/left wrist pain. Please see the progress note below for an update on the occupational therapy plan of care! Subjective: pt states she was cleaning her floors-pt states she can brush her hair now with her left see next week Objective/Function: left wrist prior . left wrist following 35/30 Plan Frequency: 1x/Week Duration: 3 Weeks Plan: cont with protocol Goals - Goals Other Goal: pt will demo a functional ROM following sx with no pain greater than 1/10 with use of daily occupations by d/c. Pt will demo a left supervisor machine setter strength at 20# to increase pts ind. with use of left UE for daily occupations by d/c Anticipated Interventions Anticipated Interventions: Early Active Motion, A/AAROM/PROM, Strengthening, Scar Care, Desensitization, Modalities, Orthoses, Joint Protection/Energy Conservation Please do not hesitate to contact me at [phone] by phone or if you have questions or concerns regarding this new plan of care! Sincerely, Komal Gunter, OTR/L, CHT
--- NOTE | 2019-06-29 13:57 | HP.OTREVAL ---
Cecy Hassan MD, It has been my pleasure to treat EMILE KITCHEN over the last 6 visits for TFCC of left wrist/left wrist pain. Please see the progress note below for an update on the occupational therapy plan of care! Subjective: pt arrives states she initiated her health and wellness ex. pt states she started with 30# - pt states she is IND. with ADLs and IADLs. pt states some pain in left forearm with attmpting to carry laundry over her left forearm or bags . Pt is ind. with cooking and baking. Pt states she is pleased with her progress. Objective/Function: left wrist 35/30. left forearm supination 85 WNL. left conditioning machine operator strength 20# right conditioning machine operator strength is 22#. left lateral pinch 6#. left tripod pinch 4# pt demo with z thumb deformity. pt states she has some pain on ulnar side of hand (pain with LF and RF). pt has made great gains Plan Frequency: 1-2x /Week Duration: 4 Weeks Plan: pt to return to Dr for follow up Goals - Goals Other Goal: pt will demo a functional ROM following sx with no pain greater than 1/10 with use of daily occupations by d/c. Pt will demo a left conditioning machine operator strength at 20# to increase pts ind. with use of left UE for daily occupations by d/c Anticipated Interventions Anticipated Interventions: Early Active Motion, A/AAROM/PROM, Strengthening, Scar Care, Desensitization, Modalities, Orthoses, Joint Protection/Energy Conservation Please do not hesitate to contact me at [phone] by phone or if you have questions or concerns regarding this new plan of care! Sincerely, Komal Gunter, OTR/L, CHT
--- NOTE | 2019-07-19 14:06 | HP.OTREVAL ---
Cecy Hassan MD, It has been my pleasure to treat EMILE KITCHEN over the last 9 visits for TFCC of left wrist/left wrist pain. Please see the progress note below for an update on the occupational therapy plan of care! Subjective: pt states pain in wrist is better- pt states she does use her hand just feel tired- does not have the endurance to perform her tasks- pt states she just changes hands to get her tasks done. Objective/Function: left wrist 35/30. left forearm supination 85 WNL. left field support technician strength 20# right field support technician strength is 22#. left lateral pinch 6#. left tripod pinch 4# pt demo with z thumb deformity. pt states she has some pain on ulnar side of hand (pain with LF and RF). pt has made great gains and has been using bilateral UE for ADls and IADls as able. Plan Plan: pt to return to drEllie Goals - Goals Other Goal: pt will demo a functional ROM following sx with no pain greater than 1/10 with use of daily occupations by d/c. Pt will demo a left field support technician strength at 20# to increase pts ind. with use of left UE for daily occupations by d/c Anticipated Interventions Anticipated Interventions: Early Active Motion, A/AAROM/PROM, Strengthening, Scar Care, Desensitization, Modalities, Orthoses, Joint Protection/Energy Conservation Please do not hesitate to contact me at [phone] by phone or if you have questions or concerns regarding this new plan of care! Sincerely, Komal Gunter, OTR/L, CHT
--- NOTE | 2019-08-11 14:11 | HP.OTDCSUM ---
HP - OT D/C Summary It has been my pleasure to treat EMILE KITCHEN under orders from Cecy Hassan MD, for the diagnosis of TFCC of left wrist/left wrist pain for a total of 9 visit(s). Please see the following information for a summary of their discharge status. - Overall Improvement % Improvement: 80 - Objective Objective/Function: left wrist 35/30. left forearm supination 85 WNL. left slot shift manager strength 20# right slot shift manager strength is 22#. left lateral pinch 6#. left tripod pinch 4# pt demo with z thumb deformity. pt states she has some pain on ulnar side of hand (pain with LF and RF). pt has made great gains and has been using bilateral UE for ADls and IADls as able. - Goals Patient Goals: Regain Mobility, Regain Strength, Decrease Pain, Return to Work, Use Hand/Wrist/Arm Normally Again Goal:100% adherence to protocol: Yes Goal:Daily scar massage when approriate: Yes Goal:No pain with affected hand use: Yes Goal:Full use of affected hand in daily activities including: Yes Goal:Decrease scar hypersensitivity: Yes Other Goal: pt will demo a functional ROM following sx with no pain greater than 1/10 with use of daily occupations by d/c. Pt will demo a left slot shift manager strength at 20# to increase pts ind. with use of left UE for daily occupations by d/c - Plan Plan: pt to return to - D/C Information Discharge Comments: Pt has not scheduled further OT apts since she returned to in Jun. Pt was doing well at last visit. Due to time lapse in care pt D/C at this time. If there are questions or concerns regarding this patient's occupational therapy, please fell free to call me at [phone]. Thank you for the referral of this patient. Sincerely, Komal Gunter, OTR/L, CHT
== END 2019-07-19 19:00 | disposition home or self-care (01) ==
LOC: OT 13:00
PROVIDERS: Family Provider Internal Medicine; PCP Internal Medicine; Referring Provider Orthopaedic Surgery Hand Surgery; Visit Provider Orthopaedic Surgery Hand Surgery
DX: S69.82XD Other specified injuries of left wrist, hand and finger(s), subsequent encounter (principal); M25.532 Pain in left wrist
CPT/HCPCS: 97035; 97110; 97140; 97166; 97530

== ENCOUNTER → 2019-08-06 06:35 | Outpatient (CLI) | payer MEDICARE, SELFPAY ==
[2019-07-14 10:07] VITALS: BMI 26.2
--- NOTE | 2019-08-06 06:36 | CDU_ITS ---
Reason For Study: carotid artery disease Rt. Velocities/BP Lt. Velocities/BP Prox CCA 141.7/17.5 cm/sec. Prox CCA 96.6/19.9 cm/sec. Mid CCA 68.3/11.8 cm/sec. Mid CCA 100.3/21.7 cm/sec. Dist CCA 65.8/15.5 cm/sec. Dist CCA 67.4/14.4 cm/sec. Prox ICA 58.0/10.1 cm/sec. Prox ICA 107.6/25.4 cm/sec. Mid ICA 71.5/23.6 cm/sec. Mid ICA 129.5/40.0 cm/sec. Dist ICA 65.3/19.9 cm/sec. Dist ICA 100.3/32.7 cm/sec. Rt. ICA/CCA = 71.5/68.3=1.0. Lt. ICA/CCA = 129.5/100.3=1.3. Prox ECA 110.7/10.2 cm/sec. Prox ECA 66.2/8.5 cm/sec. Rt. Vert. 72.7/16.2 cm/sec. Lt. Vert. 68.0/14.2 cm/sec. Right Extracranial There is intimal thickening but no significant atherosclerotic plaque noted in the right common carotid artery. There is heterogeneous, irregular atherosclerotic plaque noted in the right internal carotid artery. The right external carotid artery is not well visualized. Antegrade flow is noted in the right vertebral artery. Left Extracranial There is intimal thickening but no significant atherosclerotic plaque noted in the left common carotid artery. There is homogeneous, irregular atherosclerotic plaque noted in the left internal carotid artery. The tortuous nature of the left internal carotid artery may result in flow velocities overestimating the degree of stenosis. There is heterogeneous, smooth atherosclerotic plaque noted in the left external carotid artery. The left external carotid artery is not well visualized. Antegrade flow is noted in the left vertebral artery. Procedure Carotid Duplex 60844. The exam was diagnostic. Exam performed in department. Interpretation Summary Mild (<50%) stenosis right extracranial internal carotid. Moderate (50-69%) stenosis left extracranial internal carotid. Flow within the vertebral arteries is antegrade bilaterally. Ordering Physician: Yovani Ko Referring Physician: Tasneem Beck Performed By: Malu Arias, OFELIA, RVT
--- NOTE | 2019-08-06 06:36 | ECHOCS_ITS ---
Reason For Study: Dyspnea.SOB Procedure This was a 2D Doppler, Color Flow transthoracic echocardiogram. The study was technically difficult. Contrast injection was performed. Exam performed in department. Left Ventricle Normal LV size. Left ventricular systolic function is normal. The estimated ejection fraction is 65 %. No regional wall motion abnormalities noted. Right Ventricle Normal RV size. Normal systolic function. Atria The left atrium is mildly enlarged. Normal right atrium. No doppler evidence for ASD. Mitral Valve There is mild to moderate mitral annular calcification. Extension of the mitral annular calcification onto the base of the posterior mitral valve leaflet. The mitral papillary muscle appears thickened and/or calcified. Mild (1+) mitral valve insufficiency. Tricuspid Valve Normal tricuspid valve. Mild tricuspid valve insufficiency. Right ventricular systolic pressure estimated to be 36 mmHg. Aortic Valve Trisinus/trileaflet aortic valve. Mild diffuse aortic valve thickening. Mild focal aortic valve calcification. Aortic sclerosis, no stenosis. Trivial aortic valve insufficiency. Pulmonic Valve The pulmonic valve is not well visualized. Mild (1+) pulmonic valve insufficiency. Great Vessels Normal sized aortic root. Pericardium/Pleural No pericardial effusion. Medication 22 gauge I.V. with prn adaptor inserted into right arm. Diluted definity 2ml given slow IV push to enhance endocardial definition. MMode/2D Measurements & Calculations LVIDd: 4.4 cm IVSd: 1.2 cm LVOT diam: 1.8 cm LVIDs: 2.1 cm LVPWd: 1.1 cm FS: 53.4 % LVOT area: 2.5 cm2 Ao root diam: 3.5 cm LAV(MOD-bp): 67.4 ml LA A4 area: 22.5 cm2 LA dimension: 4.2 cm LAV(MOD-bp) Indexed: 41.0 ml/m2 LAV(MOD-sp2): 57.6 ml LAV(MOD-sp4): 77.0 ml RA A4 area: 16.8 cm2 Time Measurements MV dec time: 0.20 sec Doppler Measurements & Calculations MV E max curtis: 124.0 cm/sec Med Peak E' Curtis: 6.6 cm/sec MV V2 max: 138.9 cm/sec MV A max curtis: 78.2 cm/sec E/E' med: 18.7 MV max P.7 mmHg MV E/A: 1.6 MV V2 mean: 69.4 cm/sec MV mean P.3 mmHg MV V2 VTI: 39.3 cm MV P1/2t max curtis: 140.1 cm/sec Ao V2 max: 179.1 cm/sec AI max curtis: 348.8 cm/sec MV P1/2t: 95.4 msec Ao max P.8 mmHg AI max P.7 mmHg MV dec slope: 430.1 cm/sec2 BACILIO(V,D): 2.1 cm2 AI dec slope: 192.3 cm/sec2 AI P1/2t: 531.3 msec MVA(P1/2t): 2.3 cm2 LV V1 max: 151.7 cm/sec PA V2 max: 116.5 cm/sec PI end-d curtis: 116.5 cm/sec LV V1 max P.2 mmHg TR max curtis: 286.4 cm/sec TR max P.8 mmHg Interpretation Summary The study was technically difficult. Contrast injection was performed. Left ventricular systolic function is normal. The estimated ejection fraction is 65 %. The left atrium is mildly enlarged. There is mild to moderate mitral annular calcification. Extension of the mitral annular calcification onto the base of the posterior mitral valve leaflet. The mitral papillary muscle appears thickened and/or calcified. Mild (1+) mitral valve insufficiency. Mild tricuspid valve insufficiency. Aortic sclerosis, no stenosis. Trivial aortic valve insufficiency. Mild (1+) pulmonic valve insufficiency. Right ventricular systolic pressure estimated to be 36 mmHg. Transmitral diastolic flow velocities suggest diastolic dysfunction (pseudonormal pattern). Ordering Physician: Yovani Ko Referring Physician: Yovani Ko Performed By: Celso Cunningham RCS
--- NOTE | 2019-08-06 12:30 | STRESSREP ---
Stress Test Report Date: 08-06-2019 Procedure: Pharmacologic stress nuclear imaging study Indications: Shortness of breath/dyspnea: Paroxysmal atrial fibrillation; valvular heart disease Consent: Per the patient Procedure: The patient underwent pharmacologic (Regadenoson) evaluation with a peak heart rate of 96 beats per minute (64 %predicted maximal heart rate) and a peak blood pressure of 138/60 mmHg. The baseline ECG demonstrated sinus bradycardia; nonspecific ST segment abnormality. The peak pharmacologic ECG demonstrated continued nonspecific ST segment abnormality. There were no cardiac dysrhythmias pretest, during pharmacologic infusion, or recovery. There was no complaint of chest discomfort during pharmacologic infusion or recovery. The examination was discontinued secondary to completion of protocol. Impression: 1. Pharmacologic (Regadenoson) evaluation 2. Peak pharmacologic ECG with continued nonspecific ST segment abnormality. 3. There were no cardiac dysrhythmias pretest, during pharmacologic infusion, or recovery. 4. Nuclear images pending Myocardial perfusion imaging study: Technique: The patient was injected with 10.4 millicuries of technetium 99m Cardiolite and subsequently rest SPECT Cardiolite nuclear imaging was obtained in the horizontal long, vertical long, and short axis views. The patient underwent pharmacologic (Regadenoson) evaluation with a peak heart rate of 96 beats per minute (64 % percent predicted maximal heart rate) and a peak blood pressure of 138/60 mmHg. The patient was injected with 31.2 millicuries of technetium 99m Cardiolite and subsequently stress SPECT Cardiolite nuclear imaging was obtained in the horizontal long, vertical long, and short axis views. A gated Cardiolite study at peak stress was obtained. Interpretation: Rest and stress SPECT Cardiolite nuclear imaging status post realignment, normalization, and attenuation correction demonstrate relative uniform tracer uptake and myocardial perfusion appearing within normal limits. There is end systolic thickening and brightening. The gated Cardiolite study demonstrates myocardial thickening and inward wall motion. The reported LVEF is 85 %. Impression: 1. Rest and stress SPECT Cardiolite nuclear imaging demonstrate relative uniform tracer uptake and myocardial perfusion appearing within normal limits. 2. The gated Cardiolite study reports an LVEF of 85 %. This note was generated with [employer] software. It may contain incorrect words, spelling, and punctuation that were not noted in checking the note before signing.
== END ==
PROVIDERS: Family Provider Internal Medicine; PCP Internal Medicine; Referring Provider Internal Medicine Cardiovascular Disease; Visit Provider Internal Medicine Cardiovascular Disease
DX: I10 Essential (primary) hypertension (principal); I48.0 Paroxysmal atrial fibrillation; I38 Endocarditis, valve unspecified; E78.5 Hyperlipidemia, unspecified; R09.89 Other specified symptoms and signs involving the circulatory and respiratory systems; R06.09 Other forms of dyspnea; R06.02 Shortness of breath
CPT/HCPCS: 78452; 93017; 93306; 93880; A9500; Q9957; A4216; C8929; J2785

== ENCOUNTER → 2019-08-25 08:43 | Outpatient (CLI) | payer MEDICARE, SELFPAY ==
[2019-08-18 12:20] VITALS: BMI 25.2
[2019-08-25 09:00] VITALS: PULSE 64; PULSE 69; PULSE 71; PULSE 73; PULSE 74; PULSE 76; O2SAT 91; O2SAT 92; O2SAT 93; O2SAT 94; O2SAT 95; O2SAT 97
[2019-08-25 11:12] LABS: Thyroid Stim Hormone (TSH) 5.75 uIU/mL (0.358-3.74)
--- NOTE | 2019-08-26 07:31 | PCM.PSN.6M ---
PSN 6 Minute Walk Test - 6 Minute Walk Test 6 Minute Walk Test: 6 Minute Walk Test PSN:6-Minute Walk Test Start: 08/25/19 09:20 Freq: Status: Active Protocol: RESP.6MINW Document 08/25/19 09:00 [facility] (Rec: 08/25/19 09:32 [facility] [id number]) 6 Minute Walk Test Date Performed 08/25/19 Time Performed 09:00 Height 5 ft 2 in Weight: 140 lb 10.338 oz Weight in Pounds 140.[address]: Rad Chao Assistive device used: None Pre-test Oxygen Delivery Method Room Air Pulse Ox (%) 94 Pulse Rate (60-100 beats/min) 64 Dyspnea Roxy Scale (0-10) 0.5 Exertion Roxy Scale (6-20) 6 1st minute Oxygen Delivery Method Room Air Pulse Ox (%) 91 Pulse Rate (60-100 beats/min) 71 2nd minute Oxygen Delivery Method Room Air Pulse Ox (%) 92 Pulse Rate (60-100 beats/min) 73 3rd minute Oxygen Delivery Method Room Air Pulse Ox (%) 91 Pulse Rate (60-100 beats/min) 74 4th minute Oxygen Delivery Method Room Air Pulse Ox (%) 91 Pulse Rate (60-100 beats/min) 76 5th minute Oxygen Delivery Method Room Air Pulse Ox (%) 93 Pulse Rate (60-100 beats/min) 76 6th minute Oxygen Delivery Method Room Air Pulse Ox (%) 95 Pulse Rate (60-100 beats/min) 76 Dyspnea Roxy Scale (0-10) 1 Exertion Roxy Scale (6-20) 11 Post-test Oxygen Delivery Method Room Air Pulse Ox (%) 97 Pulse Rate (60-100 beats/min) 69 Full Laps Walked 14 Partial Lap, Number of Tiles Walked 52 Total Distance Walked (ft) 878 - Interpretation Interpretation: The patient ambulated 878 feet over the course of 6 minutes beginning on room air without assistive devices or breaks. Pretesting oxygen saturation was noted to be 94% on room air. With ambulation, the jg oxygen saturation was 91%. There was no significant exertional oxygen desaturation. - Recommendations Recommendations: There is no indication for the use of supplemental oxygen at this time.
== END ==
PROVIDERS: Internal Medicine Cardiovascular Disease; PCP Internal Medicine; Referring Provider Internal Medicine Critical Care Medicine; Visit Provider Internal Medicine Critical Care Medicine
DX: E03.9 Hypothyroidism, unspecified (principal); J44.9 Chronic obstructive pulmonary disease, unspecified
CPT/HCPCS: 36415; 84443; 94618

== ENCOUNTER → 2020-04-11 12:35 | Outpatient (CLI) | payer MEDICARE, SELFPAY ==
[2020-03-17 07:58] VITALS: BMI 24.3
[2020-04-11 13:05] LABS: International Normalized Ratio 2.9; Prothrombin Time (Protime)PT. 29.6 SECONDS (11.7-14.9)
== END ==
PROVIDERS: PCP Internal Medicine; Referring Provider Nurse Practitioner Primary Care; Visit Provider Nurse Practitioner Primary Care
DX: G45.9 Transient cerebral ischemic attack, unspecified (principal)
CPT/HCPCS: 85610

== ENCOUNTER → 2020-05-27 09:46 | Outpatient (CLI) | payer MEDICARE, SELFPAY ==
[2020-03-17 07:58] VITALS: BMI 24.3
--- NOTE | 2020-05-27 09:46 | RAD_ITS ---
STUDY: X-RAY CHEST REASON FOR EXAM: Female, 74 years old. dyspnea on exertion -- chest heaviness TECHNIQUE: PA and lateral views of the chest. COMPARISON: 07/16/2019 FINDINGS: The lungs are clear and expanded. There is no demonstrated pleural abnormality. Normal size heart. Normal mediastinum and fay. Normal visualized pulmonary arteries. Normal visualized aortic arch and descending thoracic aorta. Normal visualized thoracic spine. Status post bilateral shoulder reverse arthroplasty. There is no demonstrated abnormality of the visualized soft tissue structures of the upper abdomen. RAD/Chest PA and Lateral IMPRESSION: Normal x-ray examination of the chest. Electronically Signed: Robert Ruiz MD at 10:38 EDT Tel , Service support ,
[2020-05-27 10:31] LABS: Absolute Lymphocyte Count 2.06 X10^3/uL (0.83-4.51); Absolute Neutrophil Count 2.9 X10^3/uL (2.0-7.7); Basophil# 0.02 X10^3/uL; Basophil% 0.3 % (0-1); Eosinophil# 0.18 X10^3/uL; Eosinophils% 3.1 % (0-5); Lymphocyte # 2.06 X10^3/ul (4.0); Lymphocyte % 35.6 % (19-41); Mean Corp Hgb Conc 32.4 g/dL (32-36); Mean Corpuscular Hgb 31.6 pg (27.0-32.0); Mean Corpuscular Volume 97.7 fL (81-99); Mean Platelet Vol. 10.4 fl (6.2-12.0); Monocyte# 0.66 X10^3/uL; Monocyte% 11.4 % (0-10); NRBC Flagged by Analyzer 0 % (0-5); Neutrophil # 2.86 X10^3/uL (2.7-7.7); Neutrophil % 49.4 % (47-70); Platelet Count 293 K/mm3 (150-450); RBC Distribution Width CV 13.4 % (11.6-14.6); RBC Distribution Width SD 47.7 fl (35.1-43.9); Red Blood Count 3.48 M/mm3 (4.2-5.4); White Blood Count 5.8 K/mm3 (4.4-11.0)
[2020-05-27 10:43] LABS: BNP,B-Type NATRIURETIC PEPTIDE 959.9 pg/mL (0-100)
[2020-05-27 10:46] LABS: Anion Gap 6 (5-15); BUN 48 mg/dL (7-18); BUN/Creat Ratio 38.1 RATIO (10-20); Calcium,Total 9.5 mg/dL (8.5-10.1); Chloride 112 mmol/L (98-107); Creatinine, Serum 1.26 mg/dL (0.55-1.02); EST Glomerular Filtration Rate 44 mL/min (>60); Est Glom Filt Rate - Afr Amer 54 mL/min (>60); Glucose 102 mg/dL (74-106); Sodium Level 143 mmol/L (136-145)
== END ==
PROVIDERS: PCP Internal Medicine; Referring Provider Physician Assistant Medical; Visit Provider Physician Assistant Medical
DX: I48.0 Paroxysmal atrial fibrillation (principal); R06.09 Other forms of dyspnea; R07.89 Other chest pain
CPT/HCPCS: 36415; 71046; 80048; 83880; 85025

== ENCOUNTER → 2020-07-08 11:02 | Outpatient (CLI) | payer MEDICARE, SELFPAY ==
[2020-05-29 10:39] VITALS: BMI 25.0
[2020-07-08 11:28] LABS: Anion Gap 3 (5-15); BUN 53 mg/dL (7-18); BUN/Creat Ratio 34.9 RATIO (10-20); Calcium,Total 9.7 mg/dL (8.5-10.1); Chloride 108 mmol/L (98-107); Creatinine, Serum 1.52 mg/dL (0.55-1.02); EST Glomerular Filtration Rate 36 mL/min (>60); Est Glom Filt Rate - Afr Amer 43 mL/min (>60); Glucose 103 mg/dL (74-106); Potassium 4.9 mmol/L (3.5-5.1); Sodium Level 142 mmol/L (136-145)
== END ==
PROVIDERS: PCP Internal Medicine; Referring Provider Physician Assistant Medical; Visit Provider Physician Assistant Medical
DX: R06.09 Other forms of dyspnea (principal)
CPT/HCPCS: 36415; 80048

== ENCOUNTER → 2020-08-12 10:39 | Outpatient (CLI) | payer MEDICARE, SELFPAY ==
[2020-05-29 10:39] VITALS: BMI 25.0
[2020-08-12 12:09] LABS: Anion Gap 4 (5-15); BUN 71 mg/dL (7-18); BUN/Creat Ratio 45.5 RATIO (10-20); Calcium,Total 10.8 mg/dL (8.5-10.1); Chloride 108 mmol/L (98-107); Creatinine, Serum 1.56 mg/dL (0.55-1.02); EST Glomerular Filtration Rate 35 mL/min (>60); Est Glom Filt Rate - Afr Amer 42 mL/min (>60); Glucose 101 mg/dL (74-106); Sodium Level 142 mmol/L (136-145)
== END ==
PROVIDERS: PCP Internal Medicine; Referring Provider Physician Assistant Medical; Visit Provider Physician Assistant Medical
DX: I10 Essential (primary) hypertension (principal)
CPT/HCPCS: 36415; 80048

== ENCOUNTER 2020-08-26 10:36 | Outpatient (RCR) | payer MEDICARE, SELFPAY ==
[2020-05-29 10:39] VITALS: BMI 25.0
[2020-08-26 11:32] LABS: Absolute Lymphocyte Count 1.22 X10^3/uL (0.83-4.51); Basophil# 0.02 X10^3/uL; Basophil% 0.5 % (0-1); Eosinophil# 0.27 X10^3/uL; Eosinophils% 6.4 % (0-5); Hematocrit 35.4 % (37-47); Hemoglobin 11.6 g/dL (12.0-15.0); Lymphocyte # 1.22 X10^3/ul (4.0); Mean Corp Hgb Conc 32.8 g/dL (32-36); Mean Corpuscular Hgb 31.4 pg (27.0-32.0); Mean Corpuscular Volume 95.9 fL (81-99); Mean Platelet Vol. 10.2 fl (6.2-12.0); Monocyte% 16.7 % (0-10); NRBC Flagged by Analyzer 0 % (0-5); Neutrophil # 1.99 X10^3/uL (2.7-7.7); Neutrophil % 47.4 % (47-70); Platelet Count 255 K/mm3 (150-450); RBC Distribution Width CV 12.4 % (11.6-14.6); RBC Distribution Width SD 43.6 fl (35.1-43.9); Red Blood Count 3.69 M/mm3 (4.2-5.4); White Blood Count 4.2 K/mm3 (4.4-11.0)
[2020-08-26 12:17] LABS: Anion Gap 5 (5-15); BUN 35 mg/dL (7-18); BUN/Creat Ratio 31.5 RATIO (10-20); Chloride 105 mmol/L (98-107); Creatinine, Serum 1.11 mg/dL (0.55-1.02); EST Glomerular Filtration Rate 51 mL/min (>60); Est Glom Filt Rate - Afr Amer 62 mL/min (>60); Glucose 108 mg/dL (74-106); Sodium Level 141 mmol/L (136-145); Thyroid Stim Hormone (TSH) 2.39 uIU/mL (0.358-3.74)
== END 2020-08-26 18:00 | disposition home or self-care (01) ==
LOC: LAB 10:36
PROVIDERS: PCP Internal Medicine; Visit Provider Physician Assistant Medical
DX: I48.0 Paroxysmal atrial fibrillation (principal); I10 Essential (primary) hypertension
CPT/HCPCS: 36415; 80048; 84443; 85025

== ENCOUNTER 2020-09-25 16:21 | Observation (INO) | payer MEDICARE, SELFPAY ==
[2020-09-15 10:36] VITALS: BMI 24.9
[2020-09-25] VITALS (7 sets, daily range): BP systolic 141–184; BP diastolic 58–75; PULSE 58–65; RESP 15–18; TEMP 35.7–36.8; O2SAT 92–97; BMI 25.5; BMI 24.3
--- NOTE | 2020-09-25 16:34 | EKG12_ITS ---
Test Reason : Blood Pressure : / mmHG Vent. Rate : 058 BPM Atrial Rate : 058 BPM P-R Int : 138 ms QRS Dur : 086 ms QT Int : 464 ms P-R-T Axes : 031 005 021 degrees QTc Int : 455 ms Sinus bradycardia Otherwise normal ECG Confirmed by MADELINE HAGEN, PAM ([id number]), editor newspaper OTILIA CARVALHO ([id number]) on 09/26/2020 10:48:14 AM Referred By: GINGER Confirmed By:PAM CORREA MD
--- NOTE | 2020-09-25 16:36 | ED.VIS.GEN ---
History of Present Illness Chief Complaint: GI Bleed Narrative: Patient presents with bright red blood per rectum that started about 4 hours ago and it continues, she is on Coumadin for atrial fibrillation. She had some intermittent abdominal cramping, she has no abdominal pain at this time. She has no nausea vomiting. She has no fever or chills. She has no dysuria or hematuria she feels slightly lightheaded standing up. Past medical history: Atrial fibrillation, COPD Medications: Reviewed, and includes warfarin Social history: Quit smoking 20 years ago Review of systems: All systems negative except as indicated General: Denies: Fever. Admits to slight lightheadedness Eyes: Denies: Visual changes - bilaterally ENT: Denies: Rhinorrhea, Sore throat Cardiovascular: Denies: Chest pain Respiratory: Denies: Dyspnea, Cough Gastrointestinal: Some abdominal cramping. GI bleed as in HPI Genitourinary: Denies: Dysuria Musculoskeletal: Denies: Myalgias Skin: Denies: Rash Neurological: Denies: Headache, no focal weakness Psych: Reports: negative Hematologic: Bleeding secondary to warfarin Physical exam General: Well nourished, Well developed, No Acute Distress Head: Normocephalic, Atraumatic Eyes: Conjunctiva not pale ENT: Moist mucous membranes Neck: Supple, Nontender, No lymphadenopathy Cardiovascular: Regular rate, Regular rhythm Respiratory: No distress, CTA bilaterally Abdomen: Soft, no current abdominal tenderness Rectal: No obvious hemorrhoids there is some bright red blood noticed Back: Nontender, Normal Inspection. Negative for: CVA tenderness Extremities: Nontender, No edema Skin: Normal color, No rash, no pallor Neurological: Alert, Normal Strength, Normal Sensation Psychological: Normal affect Past Medical History - Allergies and Home Meds Allergies/Adverse Reactions: Allergies cortisone Allergy (Verified 09/25/20 16:22) Unknown acetaminophen [From Vicodin] Adverse Reaction (Severe, Verified 09/25/20 16:22) Vomiting hydrocodone [From Vicodin] Adverse Reaction (Severe, Verified 09/25/20 16:22) Vomiting [id number] Reductase Inhibitor Adverse Reaction (Severe, Verified 09/25/20 16:22) Myalgias adhesive Adverse Reaction (Verified 09/25/20 16:22) Rash Primary Care Physician: Tasneem Beck MD [Primary Care Provider] - Surgical History: - - Status post vagina prolapse surgery, left shoulder repair, tubal ligation, back surgery with anterior approach in 1998 Smoking Status: Former smoker - Family History Maternal Family History: Family History (Last Reviewed 09/15/20 @ 10:39 by Komal Oreilly) Father CVA (cerebral vascular accident) Mother CVA (cerebral vascular accident) Sister CAD (coronary artery disease) Atrial fibrillation Sister COPD (chronic obstructive pulmonary disease) Family History: Reports: No pertinent history Physical Exam Vital Signs/Narrative: Vital Signs Temp Pulse Resp BP Pulse Ox 09/25/20 16:22 96.3 F L 61 17 175/75 H 96 Diagnostic/Tx/Re-eval - Medical Decision Making Patient has negative orthostatics her first hemoglobin is only slightly lower than baseline. I will reverse her Coumadin. I discussed with the hospitalist and will admit to PCU for further treatment. ED Disposition - Plan for ED Patient: Disposition: Acute Care Hospital [facility] Diagnosis: GI bleed Referrals: Tasneem Beck MD [Primary Care Provider] -
[2020-09-25 17:19] LABS: ALB/GLOB Ratio 1.1 RATIO (0.9-2.4); AST(SGOT) 21 U/L (15-37); Absolute Lymphocyte Count 1.46 X10^3/uL (0.83-4.51); Absolute Neutrophil Count 2.2 X10^3/uL (2.0-7.7); Alanine Aminotransfer ALT/SGPT 46 U/L (13-56); Albumin, Serum 3.4 g/dL (3.2-5.0); Alkaline Phosphatase 132 U/L (45-117); Anion Gap 7 (5-15); BUN 39 mg/dL (7-18); BUN/Creat Ratio 28.9 RATIO (10-20); Basophil# 0.02 X10^3/uL; Basophil% 0.4 % (0-1); Calcium,Total 10.2 mg/dL (8.5-10.1); Chloride 110 mmol/L (98-107); Creatinine, Serum 1.35 mg/dL (0.55-1.02); EST Glomerular Filtration Rate 41 mL/min (>60); Eosinophil# 0.22 X10^3/uL; Eosinophils% 4.9 % (0-5); Est Glom Filt Rate - Afr Amer 49 mL/min (>60); Estimated Creatinine Clearance 29.35 ml/min; Globulin 3.2 g/dL (2.2-4.2); Glucose 114 mg/dL (74-106); Hemoglobin 10.6 g/dL (12.0-15.0); Lymphocyte # 1.46 X10^3/ul (4.0); Lymphocyte % 32.3 % (19-41); Mean Corp Hgb Conc 31.2 g/dL (32-36); Mean Corpuscular Hgb 29.9 pg (27.0-32.0); Mean Corpuscular Volume 95.8 fL (81-99); Mean Platelet Vol. 10.1 fl (6.2-12.0); Monocyte# 0.65 X10^3/uL; Monocyte% 14.4 % (0-10); NRBC Flagged by Analyzer 0 % (0-5); Neutrophil # 2.16 X10^3/uL (2.7-7.7); Neutrophil % 47.8 % (47-70); Platelet Count 243 K/mm3 (150-450); Potassium 4.1 mmol/L (3.5-5.1); Protein, Total 6.6 g/dL (6.4-8.2); RBC Distribution Width CV 12.3 % (11.6-14.6); RBC Distribution Width SD 42.7 fl (35.1-43.9); Red Blood Count 3.55 M/mm3 (4.2-5.4); Sodium Level 145 mmol/L (136-145); White Blood Count 4.5 K/mm3 (4.4-11.0)
[2020-09-25 17:32] LABS: International Normalized Ratio 2.3; Prothrombin Time (Protime)PT. 24.9 SECONDS (11.7-14.9)
--- NOTE | 2020-09-25 17:55 | NURSING ---
PCU GI BLEED ALICJA
[2020-09-25] MEDS: Phytonadione (Vit K1) 5 MG TABLET PO (18:06)
--- NOTE | 2020-09-25 19:14 | HP.PCM_ITS ---
Problem List (1) GI bleed Status: Acute (2) 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 classification Status: Chronic Comment: FEV1 60% of predicted (3) GERD (gastroesophageal reflux disease) Status: Acute (4) Pneumonia Status: Acute (5) Bronchitis Status: Acute (6) PUD (peptic ulcer disease) Status: Chronic (7) Osteoarthritis Status: Chronic (8) TIA (transient ischemic attack) Status: Acute (9) Small bowel obstruction Status: Acute (10) History of right hip replacement Status: Resolved (11) S/P foot surgery, right Status: Resolved (12) History of rotator cuff surgery Status: Resolved (13) History of back surgery Status: Resolved (14) H/O left wrist surgery Status: Resolved (15) Abnormal pulmonary function test Status: Acute (16) Essential hypertension Status: Chronic (17) Dyspnea on exertion Status: Chronic (18) Nonrheumatic aortic (valve) insufficiency Status: Chronic (19) Hyperlipidemia Status: Chronic Qualifiers: Hyperlipidemia type: unspecified Qualified Code(s): E78.5 - Hyperlipidemia, unspecified (20) Paroxysmal atrial fibrillation Status: Chronic (21) Nonrheumatic tricuspid valve regurgitation Status: Acute (22) Carotid bruit Status: Acute Qualifiers: Laterality: right Qualified Code(s): R09.89 - Other specified symptoms and signs involving the circulatory and respiratory systems History of Present Illness Date of Admission: 09/25/20 Chief Complaint: BRBPR The patient is a 75 year old 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 Patient had 2 bouts. Preceding this she had some crampy abdominal pain in the suprapubic region which still persists. Patient is never had a but red blood per rectum previously no abdominal pain such as this before. Denies any vomiting or hematemesis. Patient was evaluated in the emergency room and hemoglobin of 10.6. Patient is on warfarin for atrial fibrillation her INR is 2.3. Patient did receive 5 mg of vitamin K. [] Past Medical History Past Medical History (Chronic Problems): Chronic Problems (Last Reviewed 09/15/20 @ 10:39 by Komal Oreilly) 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 classification (Chronic) FEV1 60% of predicted PUD (peptic ulcer disease) (Chronic) Osteoarthritis (Chronic) Essential hypertension (Chronic) Dyspnea on exertion (Chronic) Nonrheumatic aortic (valve) insufficiency (Chronic) Hyperlipidemia (Chronic) Paroxysmal atrial fibrillation (Chronic) Medical History: Medical History (Last Reviewed 09/25/20 @ 19:[address] Trenton Mccarty, DO) GERD (gastroesophageal reflux disease) (Acute) K21.9 Pneumonia (Acute) J18.9 Bronchitis (Acute) J40 PUD (peptic ulcer disease) (Chronic) K27.9 Osteoarthritis (Chronic) M19.90 TIA (transient ischemic attack) (Acute) G45.9 Small bowel obstruction (Acute) K56.609 Essential hypertension (Chronic) I10 Nonrheumatic aortic (valve) insufficiency (Chronic) I35.1 Hyperlipidemia (Chronic) E78.5 Paroxysmal atrial fibrillation (Chronic) I48.0 Nonrheumatic tricuspid valve regurgitation (Acute) I36.1 Carotid bruit (Acute) R09.89 Allergies cortisone Allergy (Verified 09/25/20 19:04) a.fib hydrocodone [From Vicodin] Adverse Reaction (Severe, Verified 09/25/20 16:22) Vomiting Wtrclhq-Tzw-Nuc Reductase Inhibitor Adverse Reaction (Severe, Verified 09/25/20 16:22) Myalgias adhesive Adverse Reaction (Verified 09/25/20 19:04) Rash if on for extended period of time Home Medications: Ambulatory Orders Medication Instructions Recorded Atenolol [Tenormin (beta raul)] 25 mg PO BID 06/15/14 Calcium Citrate/Vitamin D3 [Hm 1 ea PO DAILY 08/12/14 Calcium Citrate-Vit D3 Tab] zolpidem 10 mg tablet 10 mg PO QHS PRN tab 03/13/18 albuterol sulfate 90 mcg/actuation 2 puff INHALATION Q4H PRN #1 device 08/19/19 aerosol inhaler furosemide 40 mg tablet 40 mg PO DAILY tab 08/14/20 diclofenac potassium 50 mg tablet 50 mg PO BID 09/15/20 gabapentin 300 mg capsule 300 mg PO BID cap 09/15/20 Acetaminophen [Tylenol Extra 1,000 mg PO DAILY PRN PRN 09/25/20 Strength] Amiodarone HCl 200 mg PO DAILY 09/25/20 Fluticasone/Umeclidin/Vilanter 1 puff INHALATION DAILY 09/25/20 [Trelegy Ellipta 100-62.5-25] Levothyroxine Sodium [Synthroid] 25 mcg PO DAILY 09/25/20 Magnesium 30 mg PO DAILY 09/25/20 Melatonin 5 mg PO QHS PRN 09/25/20 Multivitamin with Minerals 1 tab PO DAILY 09/25/20 [Multiple Vitamin] Ubidecarenone [Coq-10] 100 mg PO DAILY 09/25/20 Warfarin Sodium 0.5 mg PO MOWESA 09/25/20 Warfarin Sodium 1 mg PO SUTUTHFR 09/25/20 Surgical History: Surgical History (Last Reviewed 09/25/20 @ 19:[address] Trenton Mccarty DO) History of right hip replacement (Resolved) Z96.641 S/P foot surgery, right (Resolved) Z98.890 History of rotator cuff surgery (Resolved) Z98.890 History of back surgery (Resolved) Z98.890 H/O left wrist surgery (Resolved) Z98.890 Surgical History: - - Status post vagina prolapse surgery, left shoulder repair, tubal ligation, back surgery with anterior approach in 1998 Psychiatric History: No pertinent psych hx WORKING [employer] History: No pertinent WORKING FOR[employer] history Smoking Status: Former smoker Tobacco Use: Cigarettes - *Family History Maternal Family History: Family History (Last Reviewed 09/25/20 @ 19:[address] Trenton Mccarty DO) Father CVA (cerebral vascular accident) Mother CVA (cerebral vascular accident) Sister CAD (coronary artery disease) Atrial fibrillation Sister COPD (chronic obstructive pulmonary disease) History Items: No pertinent history Review of Systems Constitutional: Denies: Anorexia, Chills, Fever, Night Sweats, Malaise, Weakness Eyes: Denies: Blurred vision HEENT: Denies: Head Aches, Sinus Congestion, Sinus Drainage Cardiovascular: Denies: Chest Pain, Palpitations Respiratory: Denies: Cough, Shortness of breath at rest, Sputum production Gastrointestinal: Reports: Abdominal Pain, Hematochezia. Denies: Hematemesis, Nausea, Vomiting Genitourinary: Denies: Dysuria Gynecological: Reports: - - In menopause Musculoskeletal: Denies: Joint Pain, Joint Tenderness Skin: Reports: - - Easy bruising Neurological: Denies: Numbness, Tingling, Focal weakness Psychiatric: Denies: Anxiety, Depression Hematologic/ Lymphatic: Reports: Easy Bruising. Denies: Easy Bleeding, Hx of blood clot Comment: All review of systems were negative except as mentioned above in the history of present illness and the other review of systems. VTE Information - Inpt Only VTE Present on Admission: No VTE Mechan Device Prophylaxis: SCD's VTE Pharm Prophylaxis ordered?: No Reason prophylaxis not ordered:: Medical Contraindication Patient Problems: Active and Suspected Problems (Last Reviewed 09/15/20 @ 10:39 by Komal Oreilly) GI bleed (Acute) - Physical Exam Vitals/I&O's: Vital Signs Temp Pulse Resp BP Pulse Ox 36.6 C 60 18 184/72 H 97 09/25/20 18:55 09/25/20 18:55 09/25/20 18:55 09/25/20 18:55 09/25/20 18:55 Oxygen Delivery Method Room Air Weight: 60.2 kg Body Mass Index (BMI) 24.3 Finger Stick Blood Glucose 117 Intake and Output for Last 24 Hours 09/23/20 09/24/20 09/25/20 23:59 23:59 23:59 Intake Total 500 / 500 Balance 500 / 500 General: Alert, Cooperative, No apparent distress HEENT: Atraumatic, Normocephalic, - - No icterus Oral: Moist Mucosa, No Gingival or Mucosal Lesions/ Ulcerations Neck: No Nodes, Thyroid Normal Size and Texture Lungs: Clear to auscultation, Normal air movement, No rhonchi, No wheeze, No rales Cardiovascular: Regular rate, Regular Rhythm, Normal S1, Normal S2, No murmurs Abdomen: Bowel Sounds Present, Soft, Non Tender, Non-Distended, No Hepato- splenomegaly Extremities: No edema Skin: No rashes, No breakdown Musculoskeletal: No Tenderness to Palpation of Joints or Extremities Neurological: - - All review of systems were negative except as mentioned above in the history of present illness and the other review of systems. Psych/Mental Status: Normal Affect, Appropriate Laboratory Results 09/25/20 16:40: WBC 4.5, RBC 3.55 L, Hgb 10.6 L, Hct 34.0 L, MCV 95.8, MCH 29.9, MCHC 31.2 L, RDW Std Deviation 42.7, RDW Coeff of Nicki 12.3, Plt Count 243, MPV 10.1, Immature Gran % (Auto) 0.200, Neut % (Auto) 47.8, Lymph % (Auto) 32.3, [place] % (Auto) 14.4 H, Eos % (Auto) 4.9, Baso % (Auto) 0.4, Absolute Neuts (auto) 2.2, Absolute Lymphs (auto) 1.46, Nucleated RBC % 0 09/25/20 16:40: PT 24.9 H, INR 2.3 09/25/20 16:40: Sodium 145, Potassium 4.1, Chloride 110 H, Carbon Dioxide 28.0, Anion Gap 7, BUN 39 H, Creatinine 1.35 H, Estim Creat Clear Calc 29.35, Est GFR (MDRD) Af Amer 49 L, Est GFR (MDRD) Non-Af 41 L, BUN/Creatinine Ratio 28.9 H, Glucose 114 H, Calcium 10.2 H, Total Bilirubin 0.40, AST 21, ALT 46, Alkaline Phosphatase 132 H, Total Protein 6.6, Albumin 3.4, Globulin 3.2, Albumin/Globulin Ratio 1.1 09/25/20 16:40: Blood Type B POSITIVE, Antibody Screen NEGATIVE Current Medications Sodium Chloride (0.9% Saline Lock 10 Ml Syringe) 10 - 40 ml IV UD PRN PRN Reason: SALINE FLUSH Assessment/Plan All Active Problems (Last Reviewed 09/15/20 @ 10:39 by Komal Oreilly) GI bleed (Acute) GERD (gastroesophageal reflux disease) (Acute) Pneumonia (Acute) Bronchitis (Acute) TIA (transient ischemic attack) (Acute) Small bowel obstruction (Acute) History of right hip replacement (Resolved) S/P foot surgery, right (Resolved) History of rotator cuff surgery (Resolved) History of back surgery (Resolved) H/O left wrist surgery (Resolved) Abnormal pulmonary function test (Acute) Nonrheumatic tricuspid valve regurgitation (Acute) Carotid bruit (Acute) 1. GI bleed Etiology is unclear. Favoring ischemic lightest given the abdominal pain but could also be diverticulosis or internal hemorrhoids. Also aggravated by patient's use of warfarin though was not the ultimate cause of her GI bleed. Patient does have a history of microscopic colitis and had been on Asacol for that. I do not feel that this is the cause of the GI bleed, however. Plan: * Agree with administration of vitamin K to help reverse INR. Continue to hold warfarin for now * Discussed with Dr. Baker, he advised CT of the abdomen pelvis for further clarification. They will be performed in the morning. Patient has some chronic kidney disease and will receive IV fluids overnight. * Monitor hemoglobin. No indication to transfuse at this time. * Patient will be on a clear liquid diet with no red liquids for now * Check a lactic acid and if elevated that may indicate that this could be ischemic colitis 2. Atrial fibrillation Currently in normal sinus rhythm Plan: * Warfarin held as above * Continue with amiodarone 3. COPD Not in exacerbation and currently stable Continue with albuterol, fluticasone 4. VTE prophylaxis: Moderate risk. Hold chemical prophylaxis given GI bleed. SCDs. Inpatient E&M: 92110 Init Hosp L3
[2020-09-25] MEDS: 0.9% Normal Saline 1,000 ML 150 ML IV (20:21)
[2020-09-25 20:41] LABS: Lactic Acid 0.9 mmol/L (0.4-1.9)
[2020-09-25] MEDS: Gabapentin 300 MG Capsule PO (22:07)
[2020-09-25] MEDS: Atenolol 25 MG Tablet PO (22:07)
[2020-09-25] MEDS: Zolpidem Tartrate 5 MG Tablet 10 MG PO (22:26)
[2020-09-26] VITALS (16 sets, daily range): BP systolic 120–162; BP diastolic 47–75; PULSE 53–86; RESP 16–20; TEMP 36.5–36.8; O2SAT 90–98
--- NOTE | 2020-09-26 03:37 | NURSING ---
PT DRINKING CT CONTRAST.
--- NOTE | 2020-09-26 05:55 | CT_ITS ---
STUDY: CT ABDOMEN AND PELVIS WITH CONTRAST REASON FOR EXAM: Female, 75 years old. Gi bleed. Crampy abdominal pain with bright red blood in the stool. RADIATION DOSAGE (If Supplied By Facility): CTDIvol = ( 11.70 ) mGy, DLP = ( 924.83 ) mGycm TECHNIQUE: Transaxial images were obtained from the dome of the diaphragm to the symphysis pubis with oral contrast. Oral and amp; IV Gastrografin and amp; 100mL Isovue-300 was administered. Sagittal and coronal images were reconstructed. Individualized dose optimization techniques were used for this CT. COMPARISON: Comparison is made with prior study dated 08/12/2014. FINDINGS: Minimal increased linear markings at the lung bases suggestive of atelectasis and/or possible scarring. Minimal bilateral pleural effusions. Coronary artery calcification. Normal liver. Sludge or tiny gallstones along the dependent portion of the gallbladder lumen. Normal spleen. Normal pancreas. Normal bilateral adrenal glands. Normal right kidney. Normal left kidney. Normal visualized stomach. Normal small intestine. There are scattered colonic diverticula consistent with diverticulosis. Moderate amount of fecal material is seen in the colon. There is non-visualization of the appendix. There is diffuse atherosclerotic calcification of the abdominal aorta and its major visceral branches, without a demonstrated aneurysm. Normal inferior vena cava. Normal retroperitoneum. Normal urinary bladder. There is a 3.2 cm x 2.8 cm mass in the left ovary. The patient is status post hysterectomy. There is a small umbilical hernia containing fat. There are diffuse degenerative changes of the visualized lumbar spine. Prior disc spacer at the L5-S1 level. Prior right total hip replacement. CT/Abdomen/Pelvis WITH Contrast IMPRESSION: Mild increased markings at the lung bases suggestive of atelectasis and/or scarring. Questionable tiny gallstones or sludge in the dependent portion of the gallbladder lumen. 3.2 cm x 2.8 cm mass in the left ovary. Scattered sigmoid diverticula. Electronically Signed: Gaurav Trent MD at 9:10 EST , Service support ,
[2020-09-26] MEDS: Levothyroxine 25 MCG TABLET PO (06:26)
[2020-09-26] MEDS: Budesonide Respules 0.5 MG/2 ML AMPUL.NEB. INHALATION ×2 (06:29→19:28)
[2020-09-26] MEDS: Furosemide 40 MG Tablet PO (06:29)
[2020-09-26] MEDS: Ipratropium/Albuterol Sulfate 3 ML AMPUL.NEB INHALATION (06:29)
--- NOTE | 2020-09-26 06:38 | NURSING ---
pt awake, called c/o feeling sob, lungs diminished right, scattered crackels w exp wheezing left, called for a breathing treatment. lasix 40mg given early, pt has a hx of chf. o2 placed at 2lnc
[2020-09-26 07:39] LABS: Absolute Lymphocyte Count 1.54 X10^3/uL (0.83-4.51); Basophil# 0.02 X10^3/uL; Basophil% 0.5 % (0-1); Eosinophil# 0.22 X10^3/uL; Hematocrit 31.9 % (37-47); Hemoglobin 9.7 g/dL (12.0-15.0); Lymphocyte # 1.54 X10^3/ul (4.0); Lymphocyte % 35.2 % (19-41); Mean Corp Hgb Conc 30.4 g/dL (32-36); Mean Corpuscular Hgb 29.5 pg (27.0-32.0); Monocyte# 0.57 X10^3/uL; NRBC Flagged by Analyzer 0 % (0-5); Neutrophil # 2.02 X10^3/uL (2.7-7.7); Neutrophil % 46.1 % (47-70); Platelet Count 193 K/mm3 (150-450); RBC Distribution Width CV 12.6 % (11.6-14.6); RBC Distribution Width SD 44.7 fl (35.1-43.9); Red Blood Count 3.29 M/mm3 (4.2-5.4); White Blood Count 4.4 K/mm3 (4.4-11.0)
[2020-09-26 07:59] LABS: Anion Gap 5 (5-15); BUN 25 mg/dL (7-18); BUN/Creat Ratio 26.2 RATIO (10-20); Calcium,Total 8.9 mg/dL (8.5-10.1); Chloride 107 mmol/L (98-107); Creatinine, Serum 0.95 mg/dL (0.55-1.02); EST Glomerular Filtration Rate 61 mL/min (>60); Est Glom Filt Rate - Afr Amer 74 mL/min (>60); Estimated Creatinine Clearance 41.71 ml/min; Glucose 85 mg/dL (74-106); Potassium 4.1 mmol/L (3.5-5.1); Sodium Level 140 mmol/L (136-145)
[2020-09-26 08:26] LABS: International Normalized Ratio 1.7; Prothrombin Time (Protime)PT. 19.1 SECONDS (11.7-14.9)
[2020-09-26] MEDS: Amiodarone 200 MG Tablet PO (09:25)
[2020-09-26] MEDS: Multivitamins,Ther W-Minerals Tablet 1 TABLET PO (09:25)
[2020-09-26] MEDS: Atenolol 25 MG Tablet PO ×2 (09:25→20:49)
[2020-09-26] MEDS: Gabapentin 300 MG Capsule PO ×2 (09:25→20:49)
[2020-09-26] MEDS: Acetaminophen 325 MG Tablet 650 MG PO ×2 (09:25→15:27)
[2020-09-26] MEDS: Calcium Carb/Vitamin D 1 TABLET Tablet PO (09:25)
[2020-09-26] MEDS: 0.9% Saline Lock 10 ML Syringe IV (09:26)
--- NOTE | 2020-09-26 11:10 | CASEMGMT ---
MOSHE NIXON assessment: Face to Face with patient for initial transition planning/care coordination assessment. RN HUSSAIN introduced self and role at [facility], pt voices understanding and consents to assessment. Pt is sitting up in bed. , Nirmal at bedside. Pt is A/Ox4 and answers all questions appropriately at this time. Care providers, pharmacy, and demographics verified/updated. Presentation: rectal bleeding Admitting dx: GI Bleed PCP: Ebony Specialists: Maikel, cardio; andrzej Chao Preferred Pharmacy: [facility] Insurance: [employer] [facility] Prescription Benefit: yes Living Will/HPOA:Pt states she has a LW and HPOA is Nirmal. She is aware this is not on file at [facility] and states can bring to medical records. LNOK:Nirmal Tompkins, Living Arrangements: Pt lives with in a 1 story house with 6 steps to enter with rail. No concerns at home. Pt is independent with ADL's. Transportation: Pt drives self and states no transportation concerns. DME/HHC: Pt states she has cane and a walker at home. Denies need for any further DME. Patient has had HHC in the past when she had her hip replaced. She is unsure of the name of the agency. Pt states no concerns with going home at time of dc. Pt works 5-6 hrs/day. Patient quit smoking in 2000 and rarely drinks ETOH. Pt states no further concerns/needs. CM to follow for any further dc planning/needs. Advised pt to ask for CM if any further questions/concerns/needs arise, voices understanding. Pt goal: Home Plan: Home
--- NOTE | 2020-09-26 11:48 | PCM.CONS.GEN ---
Problem List (1) GI bleed Status: Acute Qualifiers: GI bleed type/associated pathology: unspecified gastrointestinal hemorrhage type Qualified Code(s): K92.2 - Gastrointestinal hemorrhage, unspecified Reason for Consult Date of Consultation: 09/26/20 History of Present Illness: The patient is a 75 year old F 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 Patient had 2 bouts. Preceding this she had some crampy abdominal pain in the suprapubic region which still persists. Patient is never had a but red blood per rectum previously no abdominal pain such as this before. Denies any vomiting or hematemesis. Patient was evaluated in the emergency room and hemoglobin of 10.6. Patient is on warfarin for atrial fibrillation her INR is 2.3. Patient did receive 5 mg of vitamin K. Since being on the floor she drank contrast for an abdominal CT scan which did not show any active disease. She has had no further bloody bowel movements since being on the floor. She has had an episode of fluid overloaded and she has been given some Lasix for this. And she is currently on oxygen therapy. Past Medical History Past Medical History (Chronic Problems): Chronic Problems (Last Reviewed 09/25/20 @ 19:[address] Trenton Mccarty DO) 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 classification (Chronic) FEV1 60% of predicted PUD (peptic ulcer disease) (Chronic) Osteoarthritis (Chronic) Essential hypertension (Chronic) Dyspnea on exertion (Chronic) Nonrheumatic aortic (valve) insufficiency (Chronic) Hyperlipidemia (Chronic) Paroxysmal atrial fibrillation (Chronic) Medical History: Medical History (Last Reviewed 09/26/20 @ 11:[address] Robbin Baker MD) GERD (gastroesophageal reflux disease) (Acute) K21.9 Pneumonia (Acute) J18.9 Bronchitis (Acute) J40 PUD (peptic ulcer disease) (Chronic) K27.9 Osteoarthritis (Chronic) M19.90 TIA (transient ischemic attack) (Acute) G45.9 Small bowel obstruction (Acute) K56.609 Essential hypertension (Chronic) I10 Nonrheumatic aortic (valve) insufficiency (Chronic) I35.1 Hyperlipidemia (Chronic) E78.5 Paroxysmal atrial fibrillation (Chronic) I48.0 Nonrheumatic tricuspid valve regurgitation (Acute) I36.1 Carotid bruit (Acute) R09.89 Allergies cortisone Allergy (Verified 09/25/20 19:04) a.fib hydrocodone [From Vicodin] Adverse Reaction (Severe, Verified 09/25/20 16:22) Vomiting Eunvhmd-Bbz-Yuz Reductase Inhibitor Adverse Reaction (Severe, Verified 09/25/20 16:22) Myalgias adhesive Adverse Reaction (Verified 09/25/20 19:04) Rash if on for extended period of time Home Medications: Ambulatory Orders Medication Instructions Recorded Atenolol [Tenormin (beta raul)] 25 mg PO BID 06/15/14 Calcium Citrate/Vitamin D3 [Hm 1 ea PO DAILY 08/12/14 Calcium Citrate-Vit D3 Tab] zolpidem 10 mg tablet 10 mg PO QHS PRN tab 03/13/18 albuterol sulfate 90 mcg/actuation 2 puff INHALATION Q4H PRN #1 device 08/19/19 aerosol inhaler furosemide 40 mg tablet 40 mg PO DAILY tab 08/14/20 diclofenac potassium 50 mg tablet 50 mg PO BID 09/15/20 gabapentin 300 mg capsule 300 mg PO BID cap 09/15/20 Acetaminophen [Tylenol Extra 1,000 mg PO DAILY PRN PRN 09/25/20 Strength] Amiodarone HCl 200 mg PO DAILY 09/25/20 Fluticasone/Umeclidin/Vilanter 1 puff INHALATION DAILY 09/25/20 [Trelegy Ellipta 100-62.5-25] Levothyroxine Sodium [Synthroid] 25 mcg PO DAILY 09/25/20 Magnesium 30 mg PO DAILY 09/25/20 Melatonin 5 mg PO QHS PRN 09/25/20 Multivitamin with Minerals 1 tab PO DAILY 09/25/20 [Multiple Vitamin] Ubidecarenone [Coq-10] 100 mg PO DAILY 09/25/20 Warfarin Sodium 0.5 mg PO MOWESA 09/25/20 Warfarin Sodium 1 mg PO SUTUTHFR 09/25/20 Surgical History: Surgical History (Last Reviewed 09/26/20 @ 11:[address] Robbin Baker MD) History of right hip replacement (Resolved) Z96.641 S/P foot surgery, right (Resolved) Z98.890 History of rotator cuff surgery (Resolved) Z98.890 History of back surgery (Resolved) Z98.890 H/O left wrist surgery (Resolved) Z98.890 Surgical History: - - Status post vagina prolapse surgery, left shoulder repair, tubal ligation, back surgery with anterior approach in 1998 Psychiatric History: No pertinent psych hx [employer] History: No pertinent [employer] history Smoking Status: Former smoker Tobacco Use: Cigarettes - *Family History Maternal Family History: Family History (Last Reviewed 09/25/20 @ 19:[address] Trenton Mccarty DO) Father CVA (cerebral vascular accident) Mother CVA (cerebral vascular accident) Sister CAD (coronary artery disease) Atrial fibrillation Sister COPD (chronic obstructive pulmonary disease) History Items: No pertinent history Review of Systems Constitutional: Denies: Chills, Fever, Weight Change Cardiovascular: Denies: Chest Pain, Chest Pressure, Chest Tightness, Palpitations Respiratory: Reports: Shortness of Breath Gastrointestinal: Reports: Abdominal Pain - Crampy abdominal pain has ceased since admission. Patient Problems: Active and Suspected Problems (Last Reviewed 09/25/20 @ 19:[address] Trenton Mccarty DO) GI bleed (Acute) GERD (gastroesophageal reflux disease) (Acute) Pneumonia (Acute) Bronchitis (Acute) TIA (transient ischemic attack) (Acute) Small bowel obstruction (Acute) Abnormal pulmonary function test (Acute) Nonrheumatic tricuspid valve regurgitation (Acute) Carotid bruit (Acute) - Physical Exam Vitals/I&O's: Vital Signs Temp Pulse Resp BP Pulse Ox 97.7 F L 61 18 152/62 H 96 09/26/20 09:25 09/26/20 09:25 09/26/20 09:25 09/26/20 09:25 09/26/20 09:25 Oxygen Flow Rate (L/min) 2 Oxygen Delivery Method Nasal Cannula Weight: 132 lb 11.492 oz Body Mass Index (BMI) 24.3 Finger Stick Blood Glucose 117 Intake and Output for Last 24 Hours 09/24/20 09/25/20 09/26/20 23:59 23:59 23:59 Intake Total 500 / 500 2300 / 2300 Balance 500 / 500 2300 / 2300 General: Alert, Oriented x3 Lungs: Clear to auscultation Cardiovascular: Regular rate, Regular Rhythm, No murmurs Abdomen: Bowel Sounds Present, Soft, Non Tender, Non-Distended Laboratory Results 09/25/20 16:40: WBC 4.5, RBC 3.55 L, Hgb 10.6 L, Hct 34.0 L, MCV 95.8, MCH 29.9, MCHC 31.2 L, RDW Std Deviation 42.7, RDW Coeff of Nicki 12.3, Plt Count 243, MPV 10.1, Immature Gran % (Auto) 0.200, Neut % (Auto) 47.8, Lymph % (Auto) 32.3, [place] % (Auto) 14.4 H, Eos % (Auto) 4.9, Baso % (Auto) 0.4, Absolute Neuts (auto) 2.2, Absolute Lymphs (auto) 1.46, Nucleated RBC % 0 09/25/20 16:40: PT 24.9 H, INR 2.3 09/25/20 16:40: Sodium 145, Potassium 4.1, Chloride 110 H, Carbon Dioxide 28.0, Anion Gap 7, BUN 39 H, Creatinine 1.35 H, Estim Creat Clear Calc 29.35, Est GFR (MDRD) Af Amer 49 L, Est GFR (MDRD) Non-Af 41 L, BUN/Creatinine Ratio 28.9 H, Glucose 114 H, Calcium 10.2 H, Total Bilirubin 0.40, AST 21, ALT 46, Alkaline Phosphatase 132 H, Total Protein 6.6, Albumin 3.4, Globulin 3.2, Albumin/Globulin Ratio 1.1 09/25/20 16:40: Blood Type B POSITIVE, Antibody Screen NEGATIVE 09/25/20 20:00: Lactic Acid 0.9 09/26/20 06:55: WBC 4.4, RBC 3.29 L, Hgb 9.7 L, Hct 31.9 L, MCV 97.0, MCH 29.5, MCHC 30.4 L, RDW Std Deviation 44.7 H, RDW Coeff of Nicki 12.6, Plt Count 193, MPV 10.0, Immature Gran % (Auto) 0.200, Neut % (Auto) 46.1 L, Lymph % (Auto) 35.2, [place] % (Auto) 13.0 H, Eos % (Auto) 5.0, Baso % (Auto) 0.5, Absolute Neuts (auto) 2.0, Absolute Lymphs (auto) 1.54, Nucleated RBC % 0 09/26/20 06:55: PT 19.1 H, INR 1.7 09/26/20 06:55: Sodium 140, Potassium 4.1, Chloride 107, Carbon Dioxide 28.0, Anion Gap 5, BUN 25 H, Creatinine 0.95, Estim Creat Clear Calc 41.71, Est GFR (MDRD) Af Amer 74, Est GFR (MDRD) Non-Af 61, BUN/Creatinine Ratio 26.2 H, Glucose 85, Calcium 8.9 Current Medications Acetaminophen (Acetaminophen 325 Mg Tablet) 650 mg PO Q6H PRN PRN PRN Reason: Pain Score 1-10/Temp > 100.7 F Last Admin: 09/26/20 09:25 Dose: 650 mg Documented by: Albuterol Sulfate (Albuterol 2.5 Mg/3 Ml Vial.Neb.) 2.5 mg INHALATION Q4H PRN PRN PRN Reason: SOB &/OR WHEEZING Amiodarone HCl (Amiodarone 200 Mg Tablet) 200 mg PO DAILY [facility] Last Admin: 09/26/20 09:25 Dose: 200 mg Documented by: Atenolol (Atenolol 25 Mg Tablet) 25 mg PO BID [facility] Last Admin: 09/26/20 09:25 Dose: 25 mg Documented by: Budesonide (Budesonide Respules 0.5 Mg/2 Ml Ampul.Neb.) 0.5 mg INHALATION Q12H.RT [facility] Last Admin: 09/26/20 06:29 Dose: 0.5 mg Documented by: Calcium/Vitamin D (Calcium Carb/Vitamin D 1 Tablet Tablet) 1 tablet PO DAILY [facility] Last Admin: 09/26/20 09:25 Dose: 1 tablet Documented by: Furosemide (Furosemide 40 Mg Tablet) 40 mg PO DAILY [facility] Last Admin: 09/26/20 06:29 Dose: 40 mg Documented by: Gabapentin (Gabapentin 300 Mg Capsule) 300 mg PO BID [facility] Last Admin: 09/26/20 09:25 Dose: 300 mg Documented by: Ipratropium [place] (Ipratropium 0.5 Mg/2.5 Ml Solution) 0.5 mg INHALATION Q6HWA.RT [facility] Levothyroxine Sodium (Levothyroxine 25 Mcg Tablet) 25 mcg PO DAILY@0600 [facility] Last Admin: 09/26/20 06:26 Dose: 25 mcg Documented by: Morphine Sulfate (Morphine 2 Mg/Ml Syringe) 2 mg IV Q3H PRN PRN PRN Reason: breakthrough pain Multivitamins/Minerals (Multivitamins,Ther W-Minerals Tablet) 1 tablet PO DAILY@0800 [place] Last Admin: 09/26/20 09:25 Dose: 1 tablet Documented by: Ondansetron HCl (Ondansetron 4 Mg/2 Ml Vial) 4 mg IV Q8H PRN PRN PRN Reason: NAUSEA/VOMITING Oxycodone HCl (Oxycodone 5 Mg Tablet) 5 mg PO Q4H PRN PRN PRN Reason: Pain Score 4-5 Oxycodone HCl (Oxycodone 5 Mg Tablet) 10 mg PO Q4H PRN PRN PRN Reason: Pain Score 6-10 Sodium Chloride (0.9% Saline Lock 10 Ml Syringe) 10 - 40 ml IV UD PRN PRN Reason: SALINE FLUSH Last Admin: 09/26/20 09:26 Dose: 10 ml Documented by: Zolpidem Tartrate (Zolpidem Tartrate 5 Mg Tablet) 10 mg PO QHS PRN PRN Reason: sleep Last Admin: 09/25/20 22:26 Dose: 10 mg Documented by: Assessment/Plan All Active Problems (Last Reviewed 09/25/20 @ 19:[address] Trenton Mccarty, DO) GI bleed (Acute) GERD (gastroesophageal reflux disease) (Acute) Pneumonia (Acute) Bronchitis (Acute) TIA (transient ischemic attack) (Acute) Small bowel obstruction (Acute) History of right hip replacement (Resolved) S/P foot surgery, right (Resolved) History of rotator cuff surgery (Resolved) History of back surgery (Resolved) H/O left wrist surgery (Resolved) Abnormal pulmonary function test (Acute) Nonrheumatic tricuspid valve regurgitation (Acute) Carotid bruit (Acute) At this point without any further rectal bleeding I am not inclined to want to do anything to her at this time. She still recovering from some questionable fluid overload and I do not think I am going to do anything therapeutic with a colonoscopy so therefore I like for her to just to recover and see her in an outpatient setting and perform an endoscopy on her at that time.
[2020-09-26] MEDS: Ipratropium 0.5 MG/2.5 ML SOLUTION INHALATION ×2 (13:02→19:28)
--- NOTE | 2020-09-26 13:48 | PCM.PN.HOSP ---
Patient Problems: Active and Suspected Problems (Last Reviewed 09/26/20 @ 11:[address] Robbin Baker MD) GI bleed (Acute) GERD (gastroesophageal reflux disease) (Acute) Pneumonia (Acute) Bronchitis (Acute) TIA (transient ischemic attack) (Acute) Small bowel obstruction (Acute) Abnormal pulmonary function test (Acute) Nonrheumatic tricuspid valve regurgitation (Acute) Carotid bruit (Acute) Subjective: States that she feels okay, no new issues overnight. She has had no further bloody bowel movements. Vitals/I&O's: Vital Signs Temp Pulse Resp BP Pulse Ox 97.7 F L 86 20 H 152/62 H 95 09/26/20 09:25 09/26/20 13:02 09/26/20 13:02 09/26/20 09:25 09/26/20 12:41 Oxygen Flow Rate (L/min) 2 Oxygen Delivery Method Nasal Cannula Weight: 132 lb 11.492 oz Body Mass Index (BMI) 24.3 Finger Stick Blood Glucose 117 Intake and Output for Last 24 Hours 09/24/20 09/25/20 09/26/20 23:59 23:59 23:59 Intake Total 500 / 500 2800 / 2800 Balance 500 / 500 2800 / 2800 General: Alert, Oriented x3, Cooperative, No apparent distress HEENT: Atraumatic, PERRLA, EOMI, Normocephalic Oral: Moist Mucosa Neck: Supple, No JVD Lungs: Normal air movement, No rhonchi, No wheeze, Rales - Mild left greater than right Cardiovascular: Regular rate, Regular Rhythm, Normal S1, Normal S2, No murmurs Abdomen: Soft, Non Tender, Non-Distended, No Hepato-splenomegaly Extremities: No edema, Capillary Refill Less than 3 Seconds Skin: No rashes, No breakdown Neurological: Neuro grossly intact, Sensory exam intact to light touch and pain Psych/Mental Status: Normal Affect, Appropriate Laboratory Results 09/25/20 16:40: WBC 4.5, RBC 3.55 L, Hgb 10.6 L, Hct 34.0 L, MCV 95.8, MCH 29.9, MCHC 31.2 L, RDW Std Deviation 42.7, RDW Coeff of Nicki 12.3, Plt Count 243, MPV 10.1, Immature Gran % (Auto) 0.200, Neut % (Auto) 47.8, Lymph % (Auto) 32.3, [place] % (Auto) 14.4 H, Eos % (Auto) 4.9, Baso % (Auto) 0.4, Absolute Neuts (auto) 2.2, Absolute Lymphs (auto) 1.46, Nucleated RBC % 0 09/25/20 16:40: PT 24.9 H, INR 2.3 09/25/20 16:40: Sodium 145, Potassium 4.1, Chloride 110 H, Carbon Dioxide 28.0, Anion Gap 7, BUN 39 H, Creatinine 1.35 H, Estim Creat Clear Calc 29.35, Est GFR (MDRD) Af Amer 49 L, Est GFR (MDRD) Non-Af 41 L, BUN/Creatinine Ratio 28.9 H, Glucose 114 H, Calcium 10.2 H, Total Bilirubin 0.40, AST 21, ALT 46, Alkaline Phosphatase 132 H, Total Protein 6.6, Albumin 3.4, Globulin 3.2, Albumin/Globulin Ratio 1.1 09/25/20 16:40: Blood Type B POSITIVE, Antibody Screen NEGATIVE 09/25/20 20:00: Lactic Acid 0.9 09/26/20 06:55: WBC 4.4, RBC 3.29 L, Hgb 9.7 L, Hct 31.9 L, MCV 97.0, MCH 29.5, MCHC 30.4 L, RDW Std Deviation 44.7 H, RDW Coeff of Nicki 12.6, Plt Count 193, MPV 10.0, Immature Gran % (Auto) 0.200, Neut % (Auto) 46.1 L, Lymph % (Auto) 35.2, [place] % (Auto) 13.0 H, Eos % (Auto) 5.0, Baso % (Auto) 0.5, Absolute Neuts (auto) 2.0, Absolute Lymphs (auto) 1.54, Nucleated RBC % 0 09/26/20 06:55: PT 19.1 H, INR 1.7 09/26/20 06:55: Sodium 140, Potassium 4.1, Chloride 107, Carbon Dioxide 28.0, Anion Gap 5, BUN 25 H, Creatinine 0.95, Estim Creat Clear Calc 41.71, Est GFR (MDRD) Af Amer 74, Est GFR (MDRD) Non-Af 61, BUN/Creatinine Ratio 26.2 H, Glucose 85, Calcium 8.9 Current Medications Acetaminophen (Acetaminophen 325 Mg Tablet) 650 mg PO Q6H PRN PRN PRN Reason: Pain Score 1-10/Temp > 100.7 F Last Admin: 09/26/20 09:25 Dose: 650 mg Documented by: Albuterol Sulfate (Albuterol 2.5 Mg/3 Ml Vial.Neb.) 2.5 mg INHALATION Q4H PRN PRN PRN Reason: SOB &/OR WHEEZING Amiodarone HCl (Amiodarone 200 Mg Tablet) 200 mg PO DAILY [facility] Last Admin: 09/26/20 09:25 Dose: 200 mg Documented by: Atenolol (Atenolol 25 Mg Tablet) 25 mg PO BID [facility] Last Admin: 09/26/20 09:25 Dose: 25 mg Documented by: Budesonide (Budesonide Respules 0.5 Mg/2 Ml Ampul.Neb.) 0.5 mg INHALATION Q12H.RT [facility] Last Admin: 09/26/20 06:29 Dose: 0.5 mg Documented by: Calcium/Vitamin D (Calcium Carb/Vitamin D 1 Tablet Tablet) 1 tablet PO DAILY [facility] Last Admin: 09/26/20 09:25 Dose: 1 tablet Documented by: Furosemide (Furosemide 40 Mg Tablet) 40 mg PO DAILY [facility] Last Admin: 09/26/20 06:29 Dose: 40 mg Documented by: Gabapentin (Gabapentin 300 Mg Capsule) 300 mg PO BID [facility] Last Admin: 09/26/20 09:25 Dose: 300 mg Documented by: Ipratropium [place] (Ipratropium 0.5 Mg/2.5 Ml Solution) 0.5 mg INHALATION Q6HWA.RT [facility] Last Admin: 09/26/20 13:02 Dose: 0.5 mg Documented by: Levothyroxine Sodium (Levothyroxine 25 Mcg Tablet) 25 mcg PO DAILY@0600 [facility] Last Admin: 09/26/20 06:26 Dose: 25 mcg Documented by: Morphine Sulfate (Morphine 2 Mg/Ml Syringe) 2 mg IV Q3H PRN PRN PRN Reason: breakthrough pain Multivitamins/Minerals (Multivitamins,Ther W-Minerals Tablet) 1 tablet PO DAILY@0800 [facility] Last Admin: 09/26/20 09:25 Dose: 1 tablet Documented by: Ondansetron HCl (Ondansetron 4 Mg/2 Ml Vial) 4 mg IV Q8H PRN PRN PRN Reason: NAUSEA/VOMITING Oxycodone HCl (Oxycodone 5 Mg Tablet) 5 mg PO Q4H PRN PRN PRN Reason: Pain Score 4-5 Oxycodone HCl (Oxycodone 5 Mg Tablet) 10 mg PO Q4H PRN PRN PRN Reason: Pain Score 6-10 Sodium Chloride (0.9% Saline Lock 10 Ml Syringe) 10 - 40 ml IV UD PRN PRN Reason: SALINE FLUSH Last Admin: 09/26/20 09:26 Dose: 10 ml Documented by: Zolpidem Tartrate (Zolpidem Tartrate 5 Mg Tablet) 10 mg PO QHS PRN PRN Reason: sleep Last Admin: 09/25/20 22:26 Dose: 10 mg Documented by: STROKE Vital Signs/Narrative: Vital Signs Pulse Resp Pulse Ox 09/26/20 13:02 86 20 H 09/26/20 12:41 95 09/26/20 12:30 90 Medical Necessity - Tobacco Use Smoking Status: Former smoker Tobacco Use: Cigarettes Assessment/Plan All Active Problems (Last Reviewed 09/26/20 @ 11:[address] Robbin Baker MD) GI bleed (Acute) GERD (gastroesophageal reflux disease) (Acute) Pneumonia (Acute) Bronchitis (Acute) TIA (transient ischemic attack) (Acute) Small bowel obstruction (Acute) History of right hip replacement (Resolved) S/P foot surgery, right (Resolved) History of rotator cuff surgery (Resolved) History of back surgery (Resolved) H/O left wrist surgery (Resolved) Abnormal pulmonary function test (Acute) Nonrheumatic tricuspid valve regurgitation (Acute) Carotid bruit (Acute) 1. Bright red blood per rectum -Evaluated by general surgery, her hemoglobin has only decreased to 9.7 -No plans for colonoscopy during this admission -We will continue to monitor hemoglobin no need for transfusion at this time -CT of her abdomen and pelvis with contrast was unremarkable -She is now on oxygen secondary to fluid resuscitation prior to her CT scan, she received a dose of Lasix this morning to help with diuresis, do encourage ambulation -Denies any abdominal pain 2. HTN/HLD/A. fib -Blood pressure stable, continue with amiodarone -Continue with Lasix p.o. daily -Continue with atenolol -We will restart Coumadin tomorrow evening 3. Hypothyroidism -Stable -Continue with Synthroid 4. COPD -None current exacerbation -Continue with her home inhalers DVT: SCDs Inpatient E&M: 11558 Subs Hosp L2
--- NOTE | 2020-09-26 23:06 | RAD_ITS ---
STUDY: X-RAY CHEST REASON FOR EXAM: Female, 75 years old. Shortness of breath. TECHNIQUE: AP portable chest. COMPARISON: May 27, 2020. FINDINGS: The lungs are clear and expanded. There is no demonstrated pleural abnormality. Normal size heart. Normal mediastinum and fay. Normal visualized pulmonary arteries. There is atherosclerotic calcification of the aortic arch. Normal visualized thoracic spine. Bilateral total shoulder arthroplasties in normal alignment. There is no demonstrated abnormality of the visualized soft tissue structures of the upper abdomen. RAD/Chest 1 View (Portable) IMPRESSION: No acute cardiopulmonary disease. Electronically Signed: Brandon Nieto MD at 0:38 EST , Service support ,
[2020-09-26] MEDS: Furosemide 40 MG/4 ML Vial IV (23:46)
[2020-09-27] VITALS (9 sets, daily range): BP systolic 104–131; BP diastolic 49–88; PULSE 52–57; RESP 12–18; TEMP 36.6–36.9; O2SAT 92–99
[2020-09-27 05:45] LABS: Absolute Lymphocyte Count 1.55 X10^3/uL (0.83-4.51); Absolute Neutrophil Count 2.5 X10^3/uL (2.0-7.7); Basophil# 0.02 X10^3/uL; Basophil% 0.4 % (0-1); Hematocrit 32.7 % (37-47); Hemoglobin 10.6 g/dL (12.0-15.0); Lymphocyte # 1.55 X10^3/ul (4.0); Lymphocyte % 31.3 % (19-41); Mean Corp Hgb Conc 32.4 g/dL (32-36); Mean Corpuscular Hgb 30.8 pg (27.0-32.0); Mean Corpuscular Volume 95.1 fL (81-99); Mean Platelet Vol. 9.7 fl (6.2-12.0); Monocyte# 0.72 X10^3/uL; Monocyte% 14.5 % (0-10); NRBC Flagged by Analyzer 0 % (0-5); Neutrophil # 2.45 X10^3/uL (2.7-7.7); Neutrophil % 49.6 % (47-70); Platelet Count 223 K/mm3 (150-450); RBC Distribution Width CV 12.5 % (11.6-14.6); RBC Distribution Width SD 43.4 fl (35.1-43.9); Red Blood Count 3.44 M/mm3 (4.2-5.4)
[2020-09-27 06:15] LABS: Anion Gap 4 (5-15); BUN 28 mg/dL (7-18); BUN/Creat Ratio 25.9 RATIO (10-20); Calcium,Total 10.4 mg/dL (8.5-10.1); Chloride 102 mmol/L (98-107); Creatinine, Serum 1.08 mg/dL (0.55-1.02); EST Glomerular Filtration Rate 53 mL/min (>60); Est Glom Filt Rate - Afr Amer 64 mL/min (>60); Estimated Creatinine Clearance 36.69 ml/min; Glucose 94 mg/dL (74-106); Potassium 3.6 mmol/L (3.5-5.1); Sodium Level 142 mmol/L (136-145)
[2020-09-27] MEDS: Levothyroxine 25 MCG TABLET PO (06:31)
[2020-09-27] MEDS: Budesonide Respules 0.5 MG/2 ML AMPUL.NEB. INHALATION (07:21)
[2020-09-27] MEDS: Ipratropium 0.5 MG/2.5 ML SOLUTION INHALATION ×2 (07:21→13:35)
[2020-09-27] MEDS: Multivitamins,Ther W-Minerals Tablet 1 TABLET PO (08:28)
[2020-09-27] MEDS: Gabapentin 300 MG Capsule PO (08:29)
[2020-09-27] MEDS: Calcium Carb/Vitamin D 1 TABLET Tablet PO (08:29)
[2020-09-27] MEDS: Amiodarone 200 MG Tablet PO (08:29)
[2020-09-27] MEDS: Furosemide 40 MG Tablet PO (08:29)
[2020-09-27] MEDS: Acetaminophen 325 MG Tablet 650 MG PO (08:33)
--- NOTE | 2020-09-27 11:32 | DCINST_ITS ---
- Discharge Diagnoses Current Active Problems: Current Active and Chronic Problems (Last Reviewed 09/26/20 @ 11:[address] 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 classification (Chronic) FEV1 60% of predicted GERD (gastroesophageal reflux disease) (Acute) Pneumonia (Acute) Bronchitis (Acute) PUD (peptic ulcer disease) (Chronic) Osteoarthritis (Chronic) TIA (transient ischemic attack) (Acute) Small bowel obstruction (Acute) Abnormal pulmonary function test (Acute) Essential hypertension (Chronic) Dyspnea on exertion (Chronic) Nonrheumatic aortic (valve) insufficiency (Chronic) Hyperlipidemia (Chronic) Paroxysmal atrial fibrillation (Chronic) Nonrheumatic tricuspid valve regurgitation (Acute) Carotid bruit (Acute) You will use the following diet at home:: Regular Your food should be the consistency of: Regular Your liquids should be the consistency of: Regular/Thin Discharge Activity: Return to Normal Activity Return to work on:: 10/02/20 Call your doctor if you observe: Fever of 101 or Higher, Shortness of breath, Dizziness, Fainting spells, Swelling in the ankles, Chest pain, Increased palpitations (irregular heartbeat) Allergies/Adverse Reactions: Allergies cortisone Allergy (Verified 09/25/20 19:04) a.fib hydrocodone [From Vicodin] Adverse Reaction (Severe, Verified 09/25/20 16:22) Vomiting Feejzbp-Wxv-Txi Reductase Inhibitor Adverse Reaction (Severe, Verified 09/25/20 16:22) Myalgias adhesive Adverse Reaction (Verified 09/25/20 19:04) Rash if on for extended period of time Medications to take at Discharge Atenolol [Tenormin (beta raul)] 25 mg PO BID 06/15/14 Calcium Citrate/Vitamin D3 [Hm Calcium Citrate-Vit D3 Tab] 1 ea PO DAILY 08/12/14 zolpidem 10 mg tablet 10 mg PO QHS PRN tab 03/13/18 albuterol sulfate 90 mcg/actuation aerosol inhaler 2 puff INHALATION Q4H PRN #1 device 08/19/19 furosemide 40 mg tablet 40 mg PO DAILY tab 08/14/20 diclofenac potassium 50 mg tablet 50 mg PO BID 09/15/20 gabapentin 300 mg capsule 300 mg PO BID cap 09/15/20 Acetaminophen [Tylenol] 1,000 mg PO DAILY PRN PRN 09/25/20 Amiodarone HCl 200 mg PO DAILY 09/25/20 Fluticasone/Umeclidin/Vilanter [Trelegy Ellipta 100-62.5-25] 1 puff INHALATION DAILY 09/25/20 Levothyroxine Sodium [Synthroid] 25 mcg PO DAILY 09/25/20 Magnesium 30 mg PO DAILY 09/25/20 Melatonin 5 mg PO QHS PRN 09/25/20 Multivitamin with Minerals [Multiple Vitamin] 1 tab PO DAILY 09/25/20 Ubidecarenone [Coq-10] 100 mg PO DAILY 09/25/20 Warfarin Sodium 0.5 mg PO MOWESA 09/25/20 Warfarin Sodium 1 mg PO SUTUTHFR 09/25/20 Primary Care Physician: Tasneem Beck MD [Primary Care Provider] - Please follow up with your Primary Care Physician in: 3-5 days Test Results: Test results from this visit will be discussed in further detail at your follow- up appointment, if applicable. Please Follow Up With: Robbin Baker MD When: 1-2 weeks
--- NOTE | 2020-09-27 11:43 | PCM.DC.SUM ---
Discharge Date and Diagnosis - Problem List Patient Problems: Active and Suspected Problems (Last Reviewed 09/26/20 @ 11:[address] Robbin Baker MD) GI bleed (Acute) GERD (gastroesophageal reflux disease) (Acute) Pneumonia (Acute) Bronchitis (Acute) TIA (transient ischemic attack) (Acute) Small bowel obstruction (Acute) Abnormal pulmonary function test (Acute) Nonrheumatic tricuspid valve regurgitation (Acute) Carotid bruit (Acute) Date of Admission: 09/25/20 Date of Discharge: 09/27/20 - Primary Discharge Diagnosis Acute Problems: Active Problems (Last Reviewed 09/26/20 @ 11:[address] Robbin Baker MD) GI bleed (Acute) GERD (gastroesophageal reflux disease) (Acute) Pneumonia (Acute) Bronchitis (Acute) TIA (transient ischemic attack) (Acute) Small bowel obstruction (Acute) Abnormal pulmonary function test (Acute) Nonrheumatic tricuspid valve regurgitation (Acute) Carotid bruit (Acute) - Secondary Discharge Diagnosis Chronic Problems: Chronic Problems (Last Reviewed 09/26/20 @ 11:[address] Robbin Baker MD) 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 classification (Chronic) FEV1 60% of predicted PUD (peptic ulcer disease) (Chronic) Osteoarthritis (Chronic) Essential hypertension (Chronic) Dyspnea on exertion (Chronic) Nonrheumatic aortic (valve) insufficiency (Chronic) Hyperlipidemia (Chronic) Paroxysmal atrial fibrillation (Chronic) Hospital Course and Treatment Imaging Results: Clinical Impression(s) from Imaging Studies Abdomen/Pelvis CT 09/26/20 05:55 IMPRESSION: Mild increased markings at the lung bases suggestive of atelectasis and/or scarring. Questionable tiny gallstones or sludge in the dependent portion of the gallbladder lumen. 3.2 cm x 2.8 cm mass in the left ovary. Scattered sigmoid diverticula. Electronically Signed: Gaurav Trent MD at 9:10 EST , Service support , Chest X-Ray 09/26/20 23:06 IMPRESSION: No acute cardiopulmonary disease. Electronically Signed: Brandon Nieto MD at 0:38 EST , Service support , Consults: General Surgery Operations: None Procedures: None Summary of Care Provided: Per HPI: The patient is a 75 year old F 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 Patient had 2 bouts. Preceding this she had some crampy abdominal pain in the suprapubic region which still persists. Patient is never had a but red blood per rectum previously no abdominal pain such as this before. Denies any vomiting or hematemesis. Patient was evaluated in the emergency room and hemoglobin of 10.6. Patient is on warfarin for atrial fibrillation her INR is 2.3. Patient did receive 5 mg of vitamin K. Hospital Course: 1. Bright red blood per [id number] female presented from home with bright red blood per rectum that occurred on the day of admission. She had at 2 bouts of it and then presented to the hospital. She denies any lightheadedness or dizziness on presentation. While in the hospital she started having normal stools again without any blood therefore general surgery felt that she can be seen as an outpatient for scope. Her hemoglobin has maintained stable at 10.6 without any transfusions. Her INR was decreased to 1.7 after vitamin K, she is okay to restart her Coumadin tonight on discharge. There was some concern for possible ischemic colitis though she states that she does not have any abdominal pain, a CT scan of her abdomen pelvis was obtained with contrast therefore she was given IV fluids and this caused her to have some hypoxia she was given 2 doses of Lasix yesterday one oral and 1 IV and today was able to ambulate without the need for oxygen. We will resume her home Lasix as well and have her follow-up with her PCP in 3 to 5 days to monitor kidney function and her INR. I discussed with her the plan for discharge and she expressed understanding of the risk and benefits of going home and would like to go home today. To follow-up with general surgery in 1 to 2 weeks for outpatient colonoscopy. 2. Hypertension, hyperlipidemia, chronic A. fib, hypothyroidism, COPD are all chronic medical conditions which complicate her care. Her home medications were continued where appropriate Patient Problems: Active and Suspected Problems (Last Reviewed 09/26/20 @ 11:[address] Robbin Baker MD) GI bleed (Acute) GERD (gastroesophageal reflux disease) (Acute) Pneumonia (Acute) Bronchitis (Acute) TIA (transient ischemic attack) (Acute) Small bowel obstruction (Acute) Abnormal pulmonary function test (Acute) Nonrheumatic tricuspid valve regurgitation (Acute) Carotid bruit (Acute) - Physical Exam Vitals/I&O's: Vital Signs Temp Pulse Resp BP Pulse Ox 98.5 F 57 L 18 131/53 H 97 09/27/20 08:17 09/27/20 08:17 09/27/20 08:17 09/27/20 08:17 09/27/20 08:38 Oxygen Flow Rate (L/min) 2 Oxygen Delivery Method Room Air Weight: 132 lb 11.492 oz Body Mass Index (BMI) 24.3 Finger Stick Blood Glucose 117 Intake and Output for Last 24 Hours 09/25/20 09/26/20 09/27/20 23:59 23:59 23:59 Intake Total 500 / 500 3300 / 3300 Balance 500 / 500 3300 / 3300 General: Alert, Oriented x3, Cooperative, No apparent distress HEENT: Atraumatic, PERRLA, EOMI, Normocephalic Oral: Moist Mucosa Neck: Supple, No JVD Lungs: Normal air movement, No rhonchi, No wheeze, Rales - Mild left greater than right Cardiovascular: Regular rate, Regular Rhythm, Normal S1, Normal S2, No murmurs Abdomen: Soft, Non Tender, Non-Distended, No Hepato-splenomegaly Extremities: No edema, Capillary Refill Less than 3 Seconds Skin: No rashes, No breakdown Neurological: Neuro grossly intact, Sensory exam intact to light touch and pain Psych/Mental Status: Normal Affect, Appropriate Laboratory Results 09/27/20 05:30: WBC 5.0, RBC 3.44 L, Hgb 10.6 L, Hct 32.7 L, MCV 95.1, MCH 30.8, MCHC 32.4 D, RDW Std Deviation 43.4, RDW Coeff of Nicki 12.5, Plt Count 223, MPV 9.7, Immature Gran % (Auto) 0.200, Neut % (Auto) 49.6, Lymph % (Auto) 31.3, [place] % (Auto) 14.5 H, Eos % (Auto) 4.0, Baso % (Auto) 0.4, Absolute Neuts (auto) 2.5, Absolute Lymphs (auto) 1.55, Nucleated RBC % 0 09/27/20 05:30: Sodium 142, Potassium 3.6, Chloride 102, Carbon Dioxide 36.0 H, Anion Gap 4 L, BUN 28 H, Creatinine 1.08 H, Estim Creat Clear Calc 36.69, Est GFR (MDRD) Af Amer 64, Est GFR (MDRD) Non-Af 53 L, BUN/Creatinine Ratio 25.9 H, Glucose 94, Calcium 10.4 H Current Medications Acetaminophen (Acetaminophen 325 Mg Tablet) 650 mg PO Q6H PRN PRN PRN Reason: Pain Score 1-10/Temp > 100.7 F Last Admin: 09/27/20 08:33 Dose: 650 mg Documented by: Albuterol Sulfate (Albuterol 2.5 Mg/3 Ml Vial.Neb.) 2.5 mg INHALATION Q4H PRN PRN PRN Reason: SOB &/OR WHEEZING Amiodarone HCl (Amiodarone 200 Mg Tablet) 200 mg PO DAILY [facility] Last Admin: 09/27/20 08:29 Dose: 200 mg Documented by: Atenolol (Atenolol 25 Mg Tablet) 25 mg PO BID [facility] Last Admin: 09/27/20 08:30 Dose: Not Given Documented by: Budesonide (Budesonide Respules 0.5 Mg/2 Ml Ampul.Neb.) 0.5 mg INHALATION Q12H.RT [facility] Last Admin: 09/27/20 07:21 Dose: 0.5 mg Documented by: Calcium/Vitamin D (Calcium Carb/Vitamin D 1 Tablet Tablet) 1 tablet PO DAILY [facility] Last Admin: 09/27/20 08:29 Dose: 1 tablet Documented by: Furosemide (Furosemide 40 Mg Tablet) 40 mg PO DAILY [facility] Last Admin: 09/27/20 08:29 Dose: 40 mg Documented by: Gabapentin (Gabapentin 300 Mg Capsule) 300 mg PO BID [facility] Last Admin: 09/27/20 08:29 Dose: 300 mg Documented by: Ipratropium [place] (Ipratropium 0.5 Mg/2.5 Ml Solution) 0.5 mg INHALATION Q6HWA.RT [facility] Last Admin: 09/27/20 07:21 Dose: 0.5 mg Documented by: Levothyroxine Sodium (Levothyroxine 25 Mcg Tablet) 25 mcg PO DAILY@0600 [facility] Last Admin: 09/27/20 06:31 Dose: 25 mcg Documented by: Morphine Sulfate (Morphine 2 Mg/Ml Syringe) 2 mg IV Q3H PRN PRN PRN Reason: breakthrough pain Multivitamins/Minerals (Multivitamins,Ther W-Minerals Tablet) 1 tablet PO DAILY@0800 [place] Last Admin: 09/27/20 08:28 Dose: 1 tablet Documented by: Ondansetron HCl (Ondansetron 4 Mg/2 Ml Vial) 4 mg IV Q8H PRN PRN PRN Reason: NAUSEA/VOMITING Oxycodone HCl (Oxycodone 5 Mg Tablet) 5 mg PO Q4H PRN PRN PRN Reason: Pain Score 4-5 Oxycodone HCl (Oxycodone 5 Mg Tablet) 10 mg PO Q4H PRN PRN PRN Reason: Pain Score 6-10 Sodium Chloride (0.9% Saline Lock 10 Ml Syringe) 10 - 40 ml IV UD PRN PRN Reason: SALINE FLUSH Last Admin: 09/26/20 09:26 Dose: 10 ml Documented by: Zolpidem Tartrate (Zolpidem Tartrate 5 Mg Tablet) 10 mg PO QHS PRN PRN Reason: sleep Last Admin: 09/25/20 22:26 Dose: 10 mg Documented by: Discharge Activity: Return to Normal Activity Return to work on:: 10/02/20 Call your doctor if you observe: Fever of 101 or Higher, Shortness of breath, Dizziness, Fainting spells, Swelling in the ankles, Chest pain, Increased palpitations (irregular heartbeat) Home Medications: Medications to take at Discharge Atenolol [Tenormin (beta raul)] 25 mg PO BID 06/15/14 Calcium Citrate/Vitamin D3 [ Calcium Citrate-Vit D3 Tab] 1 ea PO DAILY 08/12/14 zolpidem 10 mg tablet 10 mg PO QHS PRN tab 03/13/18 albuterol sulfate 90 mcg/actuation aerosol inhaler 2 puff INHALATION Q4H PRN #1 device 08/19/19 furosemide 40 mg tablet 40 mg PO DAILY tab 08/14/20 diclofenac potassium 50 mg tablet 50 mg PO BID 09/15/20 gabapentin 300 mg capsule 300 mg PO BID cap 09/15/20 Acetaminophen [Tylenol] 1,000 mg PO DAILY PRN PRN 09/25/20 Amiodarone HCl 200 mg PO DAILY 09/25/20 Fluticasone/Umeclidin/Vilanter [Trelegy Ellipta 100-62.5-25] 1 puff INHALATION DAILY 09/25/20 Levothyroxine Sodium [Synthroid] 25 mcg PO DAILY 09/25/20 Magnesium 30 mg PO DAILY 09/25/20 Melatonin 5 mg PO QHS PRN 09/25/20 Multivitamin with Minerals [Multiple Vitamin] 1 tab PO DAILY 09/25/20 Ubidecarenone [Coq-10] 100 mg PO DAILY 09/25/20 Warfarin Sodium 0.5 mg PO MOWESA 09/25/20 Warfarin Sodium 1 mg PO SUTUTHFR 09/25/20 Primary Care Physician: Tasneem Beck MD [Primary Care Provider] - Please follow up with your Primary Care Physician in: 3-5 days Please Follow Up With: Robbin Baker MD When: 1-2 weeks Disposition: Home Minutes spent on discharge:: 35 Medical Necessity - Tobacco Use Smoking Status: Former smoker Tobacco Use: Cigarettes Meaningful Use Info Meaningful Use Diagnoses (Choose all that apply): None applicable Inpatient E&M: 52120 Disch Hosp
--- NOTE | 2020-09-27 12:18 | PHA.DC.MR ---
Pharmacy Service has performed discharge medication reconciliation for this patient. The patient's discharge medication list was reviewed for discrepancies and discrepancies were resolved. Home Medications Atenolol [Tenormin (beta raul)] 25 mg PO BID 06/15/14 Calcium Citrate/Vitamin D3 [Hm Calcium Citrate-Vit D3 Tab] 1 ea PO DAILY 08/12/14 zolpidem 10 mg tablet 10 mg PO QHS PRN tab 03/13/18 albuterol sulfate 90 mcg/actuation aerosol inhaler 2 puff INHALATION Q4H PRN #1 device 08/19/19 furosemide 40 mg tablet 40 mg PO DAILY tab 08/14/20 diclofenac potassium 50 mg tablet 50 mg PO BID 09/15/20 gabapentin 300 mg capsule 300 mg PO BID cap 09/15/20 Acetaminophen [Tylenol] 1,000 mg PO DAILY PRN PRN 09/25/20 Amiodarone HCl 200 mg PO DAILY 09/25/20 Fluticasone/Umeclidin/Vilanter [Trelegy Ellipta 100-62.5-25] 1 puff INHALATION DAILY 09/25/20 Levothyroxine Sodium [Synthroid] 25 mcg PO DAILY 09/25/20 Magnesium 30 mg PO DAILY 09/25/20 Melatonin 5 mg PO QHS PRN 09/25/20 Multivitamin with Minerals [Multiple Vitamin] 1 tab PO DAILY 09/25/20 Ubidecarenone [Coq-10] 100 mg PO DAILY 09/25/20 Warfarin Sodium 0.5 mg PO MOWESA 09/25/20 Warfarin Sodium 1 mg PO SUTUTHFR 09/25/20
--- NOTE | 2020-09-28 16:28 | CASEMGMT ---
RN CM Note DC Date: 09/27/20 DC Disposition: Home DC Diagnosis: GI Bleed Attempted call to home phone. no answer and no messaging with name identifier. Baylee [facility]
== END 2020-09-27 16:30 | disposition home or self-care (01) | DRG 379 ==
LOC: ED 17:54 → PCU 09-26 07:06
PROVIDERS: Emergency Provider Emergency Medicine; PCP Internal Medicine; Visit Provider Family Medicine
DX: K92.2 Gastrointestinal hemorrhage, unspecified (principal); K21.9 Gastro-esophageal reflux disease without esophagitis; I10 Essential (primary) hypertension; E78.5 Hyperlipidemia, unspecified; E03.9 Hypothyroidism, unspecified; J44.9 Chronic obstructive pulmonary disease, unspecified; M19.90 Unspecified osteoarthritis, unspecified site; I48.0 Paroxysmal atrial fibrillation; I12.9 Hypertensive chronic kidney disease with stage 1 through stage 4 chronic kidney disease, or unspecified chronic kidney disease; N18.30 Chronic kidney disease, stage 3 unspecified; Z79.899 Other long term (current) drug therapy; Z79.01 Long term (current) use of anticoagulants; Z87.11 Personal history of peptic ulcer disease; Z86.73 Personal history of transient ischemic attack (TIA), and cerebral infarction without residual deficits
CPT/HCPCS: 36415; 71045; 74177; 80048; 80053; 83605; 85025; 85610; 86850; 86900; 86901; 93005; 94640; 96361; 96374; 99218; 99285; J7030; Q9967; A4216; G0378; J1940

== ENCOUNTER → 2020-09-28 10:05 | Outpatient (CLI) | payer MEDICARE, SELFPAY ==
[2020-09-13 10:04] VITALS: BMI 24.3
[2020-09-25 18:58] VITALS: BMI 24.3
--- NOTE | 2020-09-28 10:07 | CDU_ITS ---
Reason For Study: carotid stenosis Rt. Velocities/BP Lt. Velocities/BP Prox CCA 128.4/15.2 cm/sec. Prox CCA 74.1/12.6 cm/sec. Mid CCA 65.1/11.3 cm/sec. Mid CCA 66.7/10.2 cm/sec. Dist CCA 56.4/11.3 cm/sec. Dist CCA 50.7/7.7 cm/sec. Prox ICA 63.1/9.9 cm/sec. Prox ICA 75.3/21.2 cm/sec. Mid ICA 67.4/16.8 cm/sec. Mid ICA 196/48.9 cm/sec. Dist ICA 72.7/18.6 cm/sec. Dist ICA 102.6/21.3 cm/sec. Rt. ICA/CCA = 1.1. Lt. ICA/CCA = 2.9. Prox ECA 44.3/6.9 cm/sec. Prox ECA 60.5/5.3 cm/sec. Rt. Vert. 60.5/15.1 cm/sec. Lt. Vert. 35.2/9.7 cm/sec. Right Extracranial There is homogeneous, smooth atherosclerotic plaque noted in the right common carotid artery. There is heterogeneous, irregular atherosclerotic plaque noted in the right internal carotid artery. There is intimal thickening but no significant atherosclerotic plaque noted in the right external carotid artery. Antegrade flow is noted in the right vertebral artery. Left Extracranial There is intimal thickening but no significant atherosclerotic plaque noted in the left common carotid artery. There is heterogeneous, irregular atherosclerotic plaque noted in the left internal carotid artery. The left internal carotid artery is very tortuous. There is heterogeneous, irregular atherosclerotic plaque noted in the left external carotid artery. Antegrade flow is noted in the left vertebral artery. Procedure Carotid Duplex 12503. This is a Carotid Duplex examination using B-mode, color flow and specral Doppler. The exam was diagnostic. Exam performed in department. Interpretation Summary Mild (<50%) stenosis right extracranial internal carotid. Moderate (50-69%) stenosis left extracranial internal carotid. Flow within the vertebral arteries is antegrade bilaterally. Ordering Physician: Yovani Ko Performed By: Mo Major RVT
== END ==
PROVIDERS: PCP Internal Medicine; Referring Provider Internal Medicine Cardiovascular Disease; Visit Provider Internal Medicine Cardiovascular Disease
DX: I65.23 Occlusion and stenosis of bilateral carotid arteries (principal)
CPT/HCPCS: 93880

== ENCOUNTER 2020-09-28 14:19 | Outpatient (RCR) | payer MEDICARE, SELFPAY ==
[2020-09-25 18:58] VITALS: BMI 24.3
[2020-09-28] MEDS: COVID-19 VACC, MRNA(PFIZER)/PF 30 MCG/0.3 ML SYRINGE IM (15:48)
[2020-10-19] MEDS: COVID-19 VACC, MRNA(PFIZER)/PF 30 MCG/0.3 ML SYRINGE IM (14:54)
== END 2021-01-02 23:59 ==
LOC: IMMUN 14:19
PROVIDERS: PCP Internal Medicine; Visit Provider Family Medicine
DX: Z23 Encounter for immunization (principal)
CPT/HCPCS: 0001A; 0002A; 91300

== ENCOUNTER → 2020-10-03 11:58 | Outpatient (CLI) | payer MEDICARE, SELFPAY ==
[2020-09-13 10:04] VITALS: BMI 24.3
[2020-09-25 18:58] VITALS: BMI 24.3
[2020-10-03 12:39] VITALS: PULSE 56; PULSE 59; PULSE 79; PULSE 83; PULSE 84; PULSE 87; PULSE 89; O2SAT 91; O2SAT 93; O2SAT 95
--- NOTE | 2020-10-04 09:40 | PCM.PSN.6M ---
PSN 6 Minute Walk Test - 6 Minute Walk Test 6 Minute Walk Test: 6 Minute Walk Test PSN:6-Minute Walk Test Start: 10/03/20 12:39 Freq: Status: Active Protocol: [id number] Document 10/03/20 12:39 BRIDGET (Rec: 10/03/20 12:41 BRIDGET [id number]) 6 Minute Walk Test Date Performed 10/03/20 Time Performed 12:30 Height 5 ft 2 in Weight: 135 lb Weight in Pounds 135.[address]: Rad Chao Assistive device used: None Pre-test Oxygen Delivery Method Room Air Pulse Ox (%) 93 Pulse Rate (60-100 beats/min) 56 L Dyspnea Roxy Scale (0-10) 0.5 Exertion Roxy Scale (6-20) 6 1st minute Oxygen Delivery Method Room Air Pulse Ox (%) 93 Pulse Rate (60-100 beats/min) 89 2nd minute Oxygen Delivery Method Room Air Pulse Ox (%) 91 Pulse Rate (60-100 beats/min) 87 3rd minute Oxygen Delivery Method Room Air Pulse Ox (%) 91 Pulse Rate (60-100 beats/min) 87 4th minute Oxygen Delivery Method Room Air Pulse Ox (%) 91 Pulse Rate (60-100 beats/min) 84 5th minute Oxygen Delivery Method Room Air Pulse Ox (%) 91 Pulse Rate (60-100 beats/min) 79 6th minute Oxygen Delivery Method Room Air Pulse Ox (%) 91 Pulse Rate (60-100 beats/min) 83 Dyspnea Roxy Scale (0-10) 1 Exertion Roxy Scale (6-20) 11 Post-test Oxygen Delivery Method Room Air Pulse Ox (%) 95 Pulse Rate (60-100 beats/min) 59 L Full Laps Walked 14 Partial Lap, Number of Tiles Walked 8 Total Distance Walked (ft) 834 - Interpretation Interpretation: The patient ambulated 834 feet over the course of 6 minutes beginning on room air without assistive devices or breaks. Pretesting oxygen saturation was noted to be 93% on room air. With ambulation, the jg oxygen saturation was 91%. There was no significant exertional oxygen desaturation. - Recommendations Recommendations: There is no indication for the use of supplemental oxygen at this time.
== END ==
PROVIDERS: PCP Internal Medicine; Referring Provider Internal Medicine Critical Care Medicine; Visit Provider Internal Medicine Critical Care Medicine
DX: J44.9 Chronic obstructive pulmonary disease, unspecified (principal)
CPT/HCPCS: 94618

== ENCOUNTER → 2020-11-02 09:32 | Outpatient (CLI) | payer MEDICARE, SELFPAY ==
[2020-09-25 18:58] VITALS: BMI 24.3
--- NOTE | 2020-11-03 08:38 | PFT ---
INTRODUCTION: The patient is a 75-year-old female that presents for pulmonary function studies secondary to a diagnosis of COPD. Respiratory therapy reports good patient effort. Bronchodilators were used during testing. INTERPRETATION: Forced expiration spirometry demonstrates the presence of a moderate large airways obstructive ventilatory defect. There was a significant response to aerosolized bronchodilators. Spirograms are of good quality and plateau normally. Body plethysmography was performed and reveals lung volumes to be within normal limits. Diffusing capacity by single breath CO is reduced at 46% of predicted. When compared to previous pulmonary function studies from June 2019, there has been a 10% improvement in FEV1 and 26% decrease in DLCO. IMPRESSION: Partially reversible moderate large airways obstructive ventilatory defect with preserved lung volumes and disproportionate reduction in diffusing capacity. There has been worsening in the patient's DLCO by 26% since 2019.
== END ==
PROVIDERS: PCP Internal Medicine; Referring Provider Internal Medicine Critical Care Medicine; Visit Provider Internal Medicine Critical Care Medicine
DX: J44.9 Chronic obstructive pulmonary disease, unspecified (principal)
CPT/HCPCS: 94060; 94726; 94729

== ENCOUNTER → 2020-11-18 08:09 | Outpatient (CLI) | payer MEDICARE, SELFPAY ==
[2020-09-25 18:58] VITALS: BMI 24.3
[2020-11-18 09:22] LABS: AST(SGOT) 43 U/L (15-37); Alanine Aminotransfer ALT/SGPT 61 U/L (13-56); Albumin, Serum 3.3 g/dL (3.2-5.0); Alkaline Phosphatase 101 U/L (45-117); Bilirubin, Direct 0.14 mg/dL (0.00-0.30); Cholesterol 177 mg/dL (200); Globulin 3.2 g/dL (2.2-4.2); High Density Lipoprotein 68 mg/dL; Protein, Total 6.5 g/dL (6.4-8.2); Triglycerides 68 mg/dL; Very Low Density Lipoprotein 14 mg/dL (5-40)
== END ==
PROVIDERS: PCP Internal Medicine; Referring Provider Internal Medicine Cardiovascular Disease; Visit Provider Internal Medicine Cardiovascular Disease
DX: E78.00 Pure hypercholesterolemia, unspecified (principal)
CPT/HCPCS: 36415; 80061; 80076

== ENCOUNTER 2021-04-12 14:12 | Emergency (ER) | payer MEDICARE, SELFPAY ==
[2021-04-12 14:13] VITALS: BP 137/49; PULSE 60; RESP 18; TEMP 36.6; O2SAT 96; BMI 24.7
--- NOTE | 2021-04-12 15:08 | RAD_ITS ---
STUDY: X-RAY CHEST REASON FOR EXAM: Female, 75 years old. COUGH TECHNIQUE: Single AP portable view of the chest. COMPARISON: Comparison is made with prior study dated 09/26/2020. FINDINGS: The lungs are clear and expanded. There is no demonstrated pleural abnormality. There is borderline cardiomegaly. Normal mediastinum and fay. Normal visualized pulmonary arteries. There is atherosclerotic calcification of the aortic arch with tortuosity. There are diffuse degenerative changes of the visualized thoracic spine. Status post bilateral shoulder replacement. There is no demonstrated abnormality of the visualized soft tissue structures of the upper abdomen. RAD/Chest 1 View IMPRESSION: Borderline cardiomegaly. No acute abnormality is seen. Electronically Signed: Gaurav Trent MD at 15:36 EDT , Service support ,
[2021-04-12 15:49] LABS: Absolute Lymphocyte Count 1.61 X10^3/uL (0.83-4.51); Absolute Neutrophil Count 4.2 X10^3/uL (2.0-7.7); Basophil# 0.02 X10^3/uL; Basophil% 0.3 % (0-1); Eosinophil# 0.21 X10^3/uL; Hematocrit 36.8 % (37-47); Hemoglobin 11.9 g/dL (12.0-15.0); Lymphocyte # 1.61 X10^3/ul (0.83-4.51); Lymphocyte % 23.1 % (19-41); Mean Corp Hgb Conc 32.3 g/dL (32-36); Mean Corpuscular Hgb 31.3 pg (27.0-32.0); Mean Corpuscular Volume 96.8 fL (81-99); Mean Platelet Vol. 10.2 fl (6.2-12.0); Monocyte# 0.95 X10^3/uL; Monocyte% 13.6 % (0-10); NRBC Flagged by Analyzer 0 % (0-5); Neutrophil # 4.16 X10^3/uL (2.7-7.7); Neutrophil % 59.7 % (47-70); Platelet Count 205 K/mm3 (150-450); RBC Distribution Width CV 12.8 % (11.6-14.6); RBC Distribution Width SD 45.7 fl (35.1-43.9)
[2021-04-12 16:09] LABS: Anion Gap 5 (5-15); BUN 28 mg/dL (7-18); BUN/Creat Ratio 22.2 RATIO (10-20); Calcium,Total 9.2 mg/dL (8.5-10.1); Chloride 107 mmol/L (98-107); Creatinine, Serum 1.26 mg/dL (0.55-1.02); EST Glomerular Filtration Rate 44 mL/min (>60); Est Glom Filt Rate - Afr Amer 53 mL/min (>60); Estimated Creatinine Clearance 31.45 ml/min; Glucose 100 mg/dL (74-106); Potassium 4.3 mmol/L (3.5-5.1); Sodium Level 143 mmol/L (136-145)
--- NOTE | 2021-04-12 16:37 | EX.ED.VIS.UR ---
HPI HPI - URI History of Present Illness Chief Complaint: Shortness of Breath Narrative Narrative: 75-year-old female presenting with cough for 3 days. Today she had a fever of 101. She also admits to chills. Patient states she has COPD and did a breathing treatment today and feels much improved. Patient was sent to the ER out of concern for pneumonia. Patient states she was vaccinated with the Pfizer vaccine. She has recent exposure to her grandson who had a cold. She does not know if he tested positive for COVID-19. ROS ROS ED Constitutional Constitutional ED: Reports chills and fever(s) Eyes Eyes: Denies blurry vision or diplopia ENT ENT ED: Reports sore throat Cardiovascular Cardiovascular: Denies chest pain or palpitations Respiratory/Chest Respiratory/Chest: Reports cough and dyspnea; Denies sputum Gastrointestinal Gastrointestinal: Denies abdominal pain, nausea or vomiting Genitourinary Genitourinary ED: Denies dysuria or hematuria Musculoskeletal Musculoskeletal: Reports myalgias; Denies arthralgias Integumentary Denies Abrasions or rash Neurologic Neurologic: Denies headache(s) or paresthesias PFSH PFSH Medical History Bronchitis Carotid bruit Essential hypertension GERD (gastroesophageal reflux disease) Hyperlipidemia Nonrheumatic aortic (valve) insufficiency Nonrheumatic tricuspid valve regurgitation Osteoarthritis Paroxysmal atrial fibrillation Pneumonia PUD (peptic ulcer disease) Small bowel obstruction TIA (transient ischemic attack) Home Medications atenolol 25 mg PO BID 06/15/14 [History Last Taken 09/25/20] calcium citrate-vitamin D3 1 ea PO DAILY 08/12/14 [History Last Taken 09/25/20] zolpidem 10 mg tablet 10 mg PO QHS PRN tab 03/13/18 [History Last Taken 09/24/20] albuterol sulfate 90 mcg/actuation aerosol inhaler 2 puff INHALATION Q4H PRN #1 device 08/19/19 [Rx Last Taken 1 Week Ago ~09/18/20] furosemide 40 mg tablet 40 mg PO DAILY tab 08/14/20 [History Last Taken 09/25/20] diclofenac potassium 50 mg tablet 50 mg PO BID 09/15/20 [History Last Taken 09/25/20] gabapentin 300 mg capsule 300 mg PO BID cap 09/15/20 [History Last Taken 09/24/20] acetaminophen 1,000 mg PO DAILY PRN PRN 09/25/20 [History Last Taken 09/22/20] coenzyme Q10 100 mg PO DAILY 09/25/20 [History Last Taken 09/25/20] levothyroxine 25 mcg PO DAILY 09/25/20 [History Last Taken 09/25/20] magnesium 30 mg PO DAILY 09/25/20 [History Last Taken 09/24/20] melatonin 5 mg PO QHS PRN 09/25/20 [History Last Taken 09/24/20] multivitamin with minerals 1 tab PO DAILY 09/25/20 [History Last Taken 09/25/20] warfarin 1 mg PO MOWESA 09/25/20 [History Last Taken 09/23/20] warfarin 1 mg PO SUTUTHFR 09/25/20 [History Last Taken 09/24/20] fluticasone fur. 100 mcg-umeclid 62.5 mcg-vilant 25 mcg inhalat.powder 1 inh INHALATION DAILY #3 each 02/14/21 [Rx Last Taken Unknown] amiodarone 200 mg tablet 200 mg PO DAILY #90 tab 03/09/21 [Rx Last Taken Unknown] potassium chloride 20 mEq tablet,extended release 20 meq PO DAILY #90 tab 03/09/21 [Rx Last Taken Unknown] Allergy/AdvReac Type Severity Reaction Status Date / Time cortisone Allergy a.fib Verified 04/12/21 14:15 hydrocodone [From Vicodin] AdvReac Severe Vomiting Verified 04/12/21 14:15 Bpcumzz-[id number]-[id number] Reductase AdvReac Severe Myalgias Verified 04/12/21 14:15 Inhibitor adhesive AdvReac Rash if on Verified 04/12/21 14:15 for extended period of time Family History Father CVA (cerebral vascular accident) Mother CVA (cerebral vascular accident) Sister CAD (coronary artery disease) Atrial fibrillation Sister COPD (chronic obstructive pulmonary disease) Surgical History H/O left wrist surgery History of back surgery History of right hip replacement History of rotator cuff surgery S/P foot surgery, right Social History pets and animals: Yes pets and animals: dog(s) Smoking Status: Former smoker Tobacco: How many years used: 36 how long ago did patient quit smokin alcohol intake: current alcohol intake frequency: a few times a week Alcohol type: beer details: rare substance use type: does not use EXAM Physical Exam Const Vital Signs: 04/12/21 14:13 04/12/21 16:54 Temperature 97.8 F 97.8 F Temperature Source Temporal Temporal Pulse Rate 60 60 Respiratory Rate 18 18 Respiratory Effort Normal Non-Labored Respiratory Depth Normal Respiratory Pattern Normal Blood Pressure 137/49 H 137/49 H Blood Pressure Mean 78 78 Pulse Ox 96 96 Oxygen Delivery Method Room Air Room Air Positive well nourished General Appearance ED: NAD; Negative for pallor HEENT normocephalic and atraumatic External Ear: external ears normal Eyes PERRL and EOMs intact bilaterally Resp normal respiratory effort and clear to auscultation bilaterally Cardio Rate: regular rate Rhythm: regular rhythm Extremity normal to inspection Neuro oriented x3 and CN's II-XII intact bilaterally Sensorium / Orientation: alert Psych mental status grossly normal Skin General Skin Exam: Negative for jaundice or pallor Lesions: no lesions Rashes: no rashes MDM MDM MDM Narrative Medical decision making narrative: Patient presenting with viral symptoms of cough and cold. She also complains of chills. Her blood work is near baseline. Her chest x-ray shows borderline cardiomegaly without any other acute abnormalities on my interpretation and radiologist does agree. Patient was tested for COVID-19 and this is negative. Feel the patient can be discharged home in stable condition at this time. She given return precautions. Impression: 1. Viral syndrome Lab Data Labs: Laboratory Results - last 24 hr 04/12/21 04/12/21 04/12/21 15:35 15:35 16:50 WBC 7.0 RBC 3.80 L Hgb 11.9 L Hct 36.8 L MCV 96.8 MCH 31.3 MCHC 32.3 RDW Std Deviation 45.7 H RDW Coeff of Nicki 12.8 Plt Count 205 MPV 10.2 Immature Gran % (Auto) 0.300 Neut % (Auto) 59.7 Lymph % (Auto) 23.1 [place] % (Auto) 13.6 H Eos % (Auto) 3.0 Baso % (Auto) 0.3 Absolute Neuts (auto) 4.2 Absolute Lymphs (auto) 1.61 Nucleated RBC % 0 PT 25.1 H INR 2.4 Sodium 143 Potassium 4.3 Chloride 107 Carbon Dioxide 31.0 Anion Gap 5 BUN 28 H Creatinine 1.26 H Estim Creat Clear Calc 31.45 Est GFR (MDRD) Af Amer 53 L Est GFR (MDRD) Non-Af 44 L BUN/Creatinine Ratio 22.2 H Glucose 100 Calcium 9.2 Radiography Diagnostic Testing: Radiology Impression Chest X-Ray 04/12/21 15:08 IMPRESSION: Borderline cardiomegaly. No acute abnormality is seen. Electronically Signed: Gaurav Trent MD at 15:36 EDT , Service support , Discharge Plan Triage Chief Complaint: Shortness of Breath ED Provider: Brock Hairston Dx/Rx/DC Orders Instructions: ED Viral Syndrome (Adult) Prescriptions: No Action gabapentin 300 mg capsule 300 mg PO BID RF: 0 albuterol sulfate 90 mcg/actuation HFA aerosol inhaler 2 puff inhalation Q4H PRN (Reason: shortness of breath or wheezing) Qty: 1 RF: 6 diclofenac potassium 50 mg tablet 50 mg PO BID RF: 0 potassium chloride 20 mEq tablet extended release 20 meq PO DAILY Qty: 90 RF: 3 amiodarone 200 mg tablet 200 mg PO DAILY Qty: 90 RF: 3 atenolol 25 MG tablet 25 mg PO BID RF: 0 zolpidem 10 mg tablet 10 mg PO QHS PRN (Reason: sleep) RF: 0 calcium citrate-vitamin D3 1 EACH tablet 1 ea PO DAILY RF: 0 acetaminophen 500 MG tablet 1,000 mg PO DAILY PRN PRN (Reason: Pain 1-10 Or Fever) RF: 0 warfarin 1 MG tablet 1 mg PO MOWESA RF: 0 multivitamin with minerals 1 EACH tablet 1 tab PO DAILY RF: 0 magnesium 30 MG tablet 30 mg PO DAILY RF: 0 coenzyme Q10 100 MG capsule 100 mg PO DAILY RF: 0 melatonin 5 MG tablet 5 mg PO QHS PRN (Reason: Insomnia) RF: 0 levothyroxine 25 MCG tablet 25 mcg PO DAILY RF: 0 warfarin 1 MG tablet 1 mg PO SUTUTHFR RF: 0 furosemide 40 mg tablet 40 mg PO DAILY RF: 0 kdvgyryqqfx-tqryopmqz-areiyied 100-62.5-25 mcg blister with device 1 inh INHALATION DAILY Qty: 3 RF: 3 Primary Care Provider: Tasneem Beck Referrals: Tasneem Beck MD [Primary Care Provider] - Disposition Disposition: Home, Self Care
[2021-04-12 16:54] VITALS: BP 137/49; PULSE 60; RESP 18; TEMP 36.6; O2SAT 96
[2021-04-12 17:09] LABS: International Normalized Ratio 2.4; Prothrombin Time (Protime)PT. 25.1 SECONDS (11.7-14.9)
[2021-04-12 17:42] VITALS: PULSE 60; RESP 18; O2SAT 96
== END 2021-04-12 17:43 | disposition home or self-care (01) ==
PROVIDERS: Emergency Provider Student in an Organized Health Care Education/Training Program; PCP Internal Medicine
DX: B34.9 Viral infection, unspecified (principal); I10 Essential (primary) hypertension; I48.0 Paroxysmal atrial fibrillation; Z79.01 Long term (current) use of anticoagulants; J44.9 Chronic obstructive pulmonary disease, unspecified; Z79.899 Other long term (current) drug therapy; Z87.891 Personal history of nicotine dependence
CPT/HCPCS: 71045; 80048; 85025; 85610; 87426; 99283; A4216

== ENCOUNTER → 2021-05-11 14:35 | Outpatient (CLI) | payer MEDICARE, SELFPAY ==
[2021-05-11 16:13] LABS: Absolute Lymphocyte Count 1.43 X10^3/uL (0.83-4.51); Absolute Neutrophil Count 2.2 X10^3/uL (2.0-7.7); Basophil# 0.02 X10^3/uL; Basophil% 0.5 % (0-1); Eosinophil# 0.21 X10^3/uL; Eosinophils% 4.8 % (0-5); Hemoglobin 11.6 g/dL (12.0-15.0); Lymphocyte # 1.43 X10^3/ul (0.83-4.51); Lymphocyte % 32.7 % (19-41); Mean Corp Hgb Conc 32.2 g/dL (32-36); Mean Corpuscular Hgb 31.2 pg (27.0-32.0); Mean Corpuscular Volume 96.8 fL (81-99); Mean Platelet Vol. 10.7 fl (6.2-12.0); Monocyte# 0.48 X10^3/uL; NRBC Flagged by Analyzer 0 % (0-5); Neutrophil # 2.22 X10^3/uL (2.7-7.7); Neutrophil % 50.8 % (47-70); Platelet Count 255 K/mm3 (150-450); RBC Distribution Width CV 12.6 % (11.6-14.6); RBC Distribution Width SD 44.6 fl (35.1-43.9); Red Blood Count 3.72 M/mm3 (4.2-5.4); White Blood Count 4.4 K/mm3 (4.4-11.0)
[2021-05-11 16:29] LABS: ALB/GLOB Ratio 0.9 RATIO (0.9-2.4); AST(SGOT) 28 U/L (15-37); Alanine Aminotransfer ALT/SGPT 42 U/L (13-56); Albumin, Serum 3.5 g/dL (3.2-5.0); Alkaline Phosphatase 98 U/L (45-117); Anion Gap 4 (5-15); BUN 41 mg/dL (7-18); BUN/Creat Ratio 23.6 RATIO (10-20); Calcium,Total 9.8 mg/dL (8.5-10.1); Chloride 106 mmol/L (98-107); Creatinine, Serum 1.74 mg/dL (0.55-1.02); EST Glomerular Filtration Rate 30 mL/min (>60); Est Glom Filt Rate - Afr Amer 37 mL/min (>60); Glucose 100 mg/dL (74-106); Protein, Total 7.5 g/dL (6.4-8.2); Sodium Level 143 mmol/L (136-145)
== END ==
PROVIDERS: PCP Internal Medicine
DX: Z01.818 Encounter for other preprocedural examination (principal)
CPT/HCPCS: 36415; 80053; 85025

== ENCOUNTER 2021-08-16 10:30 | Outpatient (RCR) | payer MEDICARE, SELFPAY ==
--- NOTE | 2021-08-08 10:55 | HP.PTEVAL_ITS ---
Patient's Visit Information EMILE KITCHEN is a 76 year old F referred to Physical Therapy by KAY LEE with a diagnosis of L hip OA, s/p YONG April. Date of Evaluation: 08/08/21 Physical Therapist: Trenton Gibbons, JOHNT, OCS, CSCS - Visit Plan Frequency: 2-3x /Week Duration: 4-6 Weeks Plan: 2-3x/week for 4-6 weeks for. 1. Pt doing leg rasies at home , montior and progress hip strength. 2. MANUAL STM and stretching to ITB and piriformis(this is what should help with the sitting pain the most), care ful with ant hip YONG. 3. Pt has tens and will bring it for instruction - Subjective 05/16/[address] Meneses at [facility] 2.5 months ago. Still having pain problems which is worse than before surgery. Pain i lateral at incision and down past knee. It hurts sitting in car to drive. Bucket seat has to be tipped down due to pain. Pain is to 10/10 sitting. Walking is better. NO AD needed.No exercises given to her except walking. sleep is interrupted every other night due to pain. saw doctor last week and asked for therapy. Put on prednisone since last Friday and no relief. Spends day bumming around the house but eats standing due to pain sitting. Basic ADLS are all getting done. 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 H/O R YONG 2013 and . L leg comfortable elevate din recliner. Incision is anterior, not many precautions, no HEP given. LBP at times is chronic for her. Tingling in L foot swith sitting. - Pain L lateral leg Pain Intensity (Out of 10): 9 Pain Intensity Range: 1, 10 - Objective L trendelenberg and L toe pointed out but ambulates I. Transfers I bed and chair. Steps reciprocal preferring to use R as she is weak on L but not painful. Prefers to stand b/c pain kicks in as soon as she sits laterally at L leg. LB AROM WFL and without pain. Pt is comfortable in standing and gets pain immediately upon sitting. Hip AROM L 90+ flexion, 15 abduction, 5 extension and similar PROM, not painful, tightness into adduction with some discomfort on L laterally. Knee and ankle AROM WFL B without pain. Tender to palpation TFL, ITB L mildly. Incision is healed and dry with mild to moderate scar tissue. - Balance/Special Test Scores Functional Gait Assessment Score: 23 % Disability: 23.3400 TUG Test Time Seconds: 13 WOMAC Total Score: 56 WOMAC Percentatge: 39.1400 - Goals Goal 1:: sleep without waking regularly Goal Time Frame: 4-6 Weeks Goal 2:: Pain in sitting 75% improved to 2/10 at worst and manageable Goal Time Frame: 4-6 Weeks Goal 3:: I approp HEP to limit future problems. Goal Time Frame: 4-6 Weeks Goal 4:: Patient feel reeady to return to work. Goal Time Frame: 4-6 Weeks - Rehabilitation Potential Physical Therapy Diagnosis: L lateral leg pain causing functional deficits. Rehabilitation Potential: Fair - Anticipated Interventions Patient/Client Instruction: Educate patient on: Condition, Plan of Care For the Purpose of:: To decrease pain, To increase tolerance to activity/condition/position Therapeutic Exercise to Include: Strength training, Postural training, Flexibilty training, Gait and locomotor training, Passive ROM, Active ROM For the Purpose of:: To decrease pain, To increase ROM, To improve muscle performance and motor function, To increase tolerance to activity/condition/position, To improve ability of physical actions for home/community/work/leisure, To improve gait and locomotor functions For the Purpose of:: To increase ROM, To improve muscle performance and motor function, To increase tolerance to activity/condition/position, To improve ability of physical actions for home/community/work/leisure TENS: Yes Cryotherapy (ice pack, ice massage): Yes For the Purpose of:: To increase ROM, To improve muscle performance and motor function, To increase tolerance to activity/condition/position Thank you for the opportunity to evaluate your patient. For Medicare and Medicare HMO plans, please review the plan of care and approve it. It will need to be FAXED BACK to us at [phone] for Medicare purposes. For Medicare only, by signing this I certify the plan of care. Please let me know if there are questions or concerns regarding this plan of care. Physician Signature: Date:
--- NOTE | 2021-10-12 10:14 | HP.PT.NRP ---
EMILE KITCHEN was seen in my office for initial evaluation on 08/08/21. The following Plan of Care was established for this patient: Initial Frequency: 2-3x /Week Initial Duration: 4-6 Weeks Patient/Client Instruction: Educate patient on: Condition, Plan of Care For the Purpose of:: To decrease pain, To increase tolerance to activity/condition/position Therapeutic Exercise to Include: Strength training, Postural training, Flexibilty training, Gait and locomotor training, Passive ROM, Active ROM For the Purpose of:: To decrease pain, To increase ROM, To improve muscle performance and motor function, To increase tolerance to activity/condition/position, To improve ability of physical actions for home/community/work/leisure, To improve gait and locomotor functions For the Purpose of:: To increase ROM, To improve muscle performance and motor function, To increase tolerance to activity/condition/position, To improve ability of physical actions for home/community/work/leisure TENS: Yes Cryotherapy (ice pack, ice massage): Yes For the Purpose of:: To increase ROM, To improve muscle performance and motor function, To increase tolerance to activity/condition/position This patient was last seen in our office 08/16/21. Pertinent comments regarding their Physical therapy will appear below: Pt seen 2 visits of POC and then did not attend any further visits possibly due to passing away and seeing spine surgeon in August. At this point, since it has been almost two months, I will discontinue from PT. At this point I will be discontinuing this patient from physical therapy. I would be happy to see this patient again in the future if found appropriate by the physician. Thank you! Trenton Gibbons, DPT, OCS, CSCS Balance/Gait/Functional tests - Balance/Special Test Scores Functional Gait Assessment Score: 23 % Disability: 23.3400 TUG Test Time Seconds: 13 WOMAC Total Score: 56 WOMAC Percentage: 39.1400
== END 2021-08-16 19:00 | disposition home or self-care (01) ==
LOC: PT 10:30
PROVIDERS: PCP Internal Medicine
DX: M16.12 Unilateral primary osteoarthritis, left hip (principal); Z96.642 Presence of left artificial hip joint
CPT/HCPCS: 97110; 97161

== ENCOUNTER 2021-09-07 07:06 | Outpatient (CLI) | payer MEDICARE, SELFPAY ==
--- NOTE | 2021-09-07 07:12 | MRI_ITS ---
STUDY: MRI LUMBAR SPINE WITH AND WITHOUT CONTRAST REASON FOR EXAM: Female, 76 years old. Back pain radiating into left leg. TECHNIQUE: Standardized fat and water weighted pulse sequences were obtained in the sagittal and axial planes. 13 mL of IV Dotarem was administered for the contrast portion of the examination. COMPARISON: MRI lumbar spine with and without contrast 11/25/2017. FINDINGS: T10-T11: (Sagittal only). Normal endplates. Normal disc height and morphology. Normal central canal and bilateral intervertebral neural foramina. T11-T12: (Sagittal only). Schmorl''s nodes in the vertebral endplates. Mild disc space height narrowing. Normal central canal and bilateral intervertebral neural foramina. T12-L1: (Sagittal only). Small anterior marginal spurs. Normal endplates. Mild disc space height narrowing. Small ventral extradural defect due to small posterior bulging disc. Normal central canal and bilateral intervertebral neural foramina. Normal lumbar lordosis. There is no substantial scoliosis. Normal conus medullaris that terminates at the upper L1 vertebral body level. L1-2: Anterior marginal spurs. Mild MODIC type II degenerative vertebral marrow fatty changes underneath the left side of the vertebral endplates. Moderate disc space height narrowing. Mild degenerative retrolisthesis of L1 on L2. Mild bilateral degenerative facet arthropathy. Normal central canal and bilateral lateral recesses. Normal bilateral intervertebral neural foramina. L2-3: MODIC type II degenerative vertebral marrow fatty changes underneath the right side of the vertebral endplates. Moderate disc space height narrowing. Mild bilateral degenerative facet arthropathy. Normal central canal and bilateral lateral recesses. Mild stenosis of the right intervertebral neural foramen. Normal left intervertebral neural foramen. L3-4: Normal endplates. Mild disc space height narrowing. Small posterior annular bulging disc. Postsurgical absence of the spinous processes and lamina. Capacious central canal and bilateral lateral recesses. Normal bilateral intervertebral neural foramina. L4-5: Pronounced left-sided disc space height narrowing with MODIC type III degenerative sclerotic changes underneath the left side of the vertebral endplates. Small posterior marginal spurs. Moderate left iterative facet arthropathy. Mild right degenerative facet arthropathy. Normal central canal and bilateral lateral recesses. Moderate stenosis of the left intervertebral neural foramen. Normal right intervertebral neural foramen. L5-S1: Metallic implant inside the disc space causing signal distortion artifacts. Mild left degenerative facet arthropathy. Normal right facet joint. Normal central canal and bilateral lateral recesses. Normal bilateral intervertebral neural foramina. Normal visualized sacral ala. Normal visualized paraspinous soft tissue structures. No abnormal enhancing lesions intradurally and extradurally. MRI/Spine Lumbar W/WO Contrast IMPRESSION: 1. No MRI evidence of lumbar extruded disc fragment. 2. Moderate stenosis of the left L4-L5 intervertebral neural foramen and pronounced left-sided disc space height narrowing are new findings when compared to 11/25/2017. 3. Small L3-L4 posterior annular bulging disc is unchanged. 4. Moderate L2-L3 disc space height narrowing and mild stenosis of the right intervertebral neural foramen are new findings. 5. Mild degenerative retrolisthesis of L1 on L2, MODIC type II degenerative changes of the vertebral endplates and moderate disc space height narrowing are unchanged. Electronically Signed: Ari Suarez MD at 11:15 EST ,
== END 2021-09-07 23:59 | disposition home or self-care (01) ==
LOC: MRI 07:12
PROVIDERS: PCP Internal Medicine; Referring Provider Orthopaedic Surgery; Visit Provider Orthopaedic Surgery
DX: M54.17 Radiculopathy, lumbosacral region (principal)
CPT/HCPCS: 72158; A9575

== ENCOUNTER 2021-10-16 16:01 | Emergency (ER) | payer MEDICARE, SELFPAY ==
[2021-10-16 16:03] VITALS: BP 131/96; PULSE 119; RESP 16; TEMP 36; O2SAT 96; BMI 27.3
--- NOTE | 2021-10-16 16:16 | EKG12_ITS ---
Test Reason : CHEST PAIN Blood Pressure : / mmHG Vent. Rate : 115 BPM Atrial Rate : 075 BPM P-R Int : 000 ms QRS Dur : 100 ms QT Int : 378 ms P-R-T Axes : 000 022 -35 degrees QTc Int : 522 ms Atrial fibrillation Diffuse Nonspecific ST-Segment Abnormality Abnormal ECG Confirmed by MADELINE HAGEN, PAM ([id number]), school photograph editor OTILIA CARVALHO ([id number]) on 10/18/2021 10:00:18 AM Referred By: DARIEN Confirmed By:PAM CORREA MD
--- NOTE | 2021-10-16 16:22 | ED.VIS.CHEST ---
HPI History of Present Illness Chief Complaint: Chest Pain Informant: patient Onset/Context/Timing Onset: Days Activity at onset: gradual Timing: Continuous Quality: Positive for Aching Location: Substernal, Right Parasternal and Left Parasternal Current Severity: Mild Maximum Severity: Mild Worsened By: Nothing Relieved By: Nothing Associated Symptoms: Positive for Nausea, Vomiting and Palpitations; Negative for Diaphoresis, Dyspnea, Cough, Fever, Lightheadedness and Acid Reflux Narrative Narrative: 76-year-old female extensive past medical history of a GI bleed, peptic ulcer disease, COPD, TIA, A. fib on Coumadin hypertension. Denies any history of CAD, stents or bypass. States she has been back in her A. fib for several days. She has had chest pain across her chest since that time. Associated nausea and vomiting. No diarrhea. No melena. No hematemesis. She also has chronic leg pain after having back surgery from an L4-5 disc. Prior Similar Symptoms: Yes Recent Illness/Hospitalization: No CVD Risk Factors: Positive for Hypertension; Negative for Diabetes and Smoking PE Risk Factors: Negative for Recent Travel/Surgery, Recent Immobilization, Prior DVT or PE, Cancer and OCP + Smoking + >/=35 TAD Risk Factors: Negative for Marfan's Syndrome [facility] Medical History Bronchitis Carotid bruit Essential hypertension GERD (gastroesophageal reflux disease) Hyperlipidemia Nonrheumatic aortic (valve) insufficiency Nonrheumatic tricuspid valve regurgitation Osteoarthritis Paroxysmal atrial fibrillation Pneumonia PUD (peptic ulcer disease) Small bowel obstruction TIA (transient ischemic attack) Home Medications atenolol 25 mg PO BID 06/15/14 [History Last Taken 09/25/20] calcium citrate-vitamin D3 1 ea PO DAILY 08/12/14 [History Last Taken 09/25/20] zolpidem 10 mg tablet 10 mg PO QHS PRN tab 03/13/18 [History Last Taken 09/24/20] albuterol sulfate 90 mcg/actuation aerosol inhaler 2 puff INHALATION Q4H PRN #1 device 08/19/19 [Rx Last Taken 1 Week Ago ~09/18/20] diclofenac potassium 50 mg tablet 50 mg PO BID 09/15/20 [History Last Taken 09/25/20] gabapentin 300 mg capsule 300 mg PO BID cap 09/15/20 [History Last Taken 09/24/20] acetaminophen 1,000 mg PO DAILY PRN PRN 09/25/20 [History Last Taken 09/22/20] coenzyme Q10 100 mg PO DAILY 09/25/20 [History Last Taken 09/25/20] levothyroxine 25 mcg PO DAILY 09/25/20 [History Last Taken 09/25/20] magnesium 30 mg PO DAILY 09/25/20 [History Last Taken 09/24/20] multivitamin with minerals 1 tab PO DAILY 09/25/20 [History Last Taken 09/25/20] warfarin 0.5 mg PO MOWEFR 09/25/20 [History Last Taken 09/23/20] fluticasone fur. 100 mcg-umeclid 62.5 mcg-vilant 25 mcg inhalat.powder 1 inh INHALATION DAILY #3 each 02/14/21 [Rx Last Taken Unknown] amiodarone 200 mg tablet 200 mg PO DAILY #90 tab 03/09/21 [Rx Last Taken Unknown] potassium chloride 20 mEq tablet,extended release 20 meq PO DAILY #90 tab 03/09/21 [Rx Last Taken Unknown] furosemide 40 mg tablet 40 mg PO DAILY tab 09/03/21 [History Last Taken Unknown] ondansetron 4 mg disintegrating tablet 4 mg PO Q6H 09/03/21 [History Last Taken Unknown] hydrocodone-acetaminophen 1 tab PO Q6H PRN 3 Days #10 tab 10/16/21 [Rx Last Taken Unknown] ondansetron 4 mg PO Q6H PRN #7 tab 10/16/21 [Rx Last Taken Unknown] oxycodone myristate [Xtampza ER] 13.5 mg PO BID 10/16/21 [History Last Taken Unknown] warfarin 1 mg PO SUTUTHSA 10/16/21 [History Last Taken Unknown] Allergy/AdvReac Type Severity Reaction Status Date / Time cortisone Allergy a.fib Verified 10/16/21 16:31 hydrocodone [From Vicodin] AdvReac Severe Vomiting Verified 10/16/21 16:31 Aazmohf-JWB-NvV Reductase AdvReac Severe Myalgias Verified 10/16/21 16:31 Inhibitor [Easktwy-Oeb-Hkf Reductase Inhibitor] adhesive AdvReac Rash if on Verified 10/16/21 16:31 for extended period of time Family History Father CVA (cerebral vascular accident) Mother CVA (cerebral vascular accident) Sister CAD (coronary artery disease) Atrial fibrillation Sister COPD (chronic obstructive pulmonary disease) Surgical History H/O left wrist surgery History of back surgery History of left hip replacement History of right hip replacement History of rotator cuff surgery S/P foot surgery, right Social History pets and animals: Yes pets and animals: dog(s) Smoking Status: Former smoker Tobacco: How many years used: 36 how long ago did patient quit smokin alcohol intake: current alcohol intake frequency: a few times a week Alcohol type: beer details: rare substance use type: does not use ROS ROS ED ROS Narrative Nausea and vomiting. Chest pain. Review of Systems ROS Unobtainable: Denies due to encephalopathy Constitutional Constitutional ED: Denies chills or fever(s) Eyes Eyes: Denies none ENT ENT ED: Denies ear pain or sore throat Cardiovascular Cardiovascular: Reports as per HPI, chest pain and palpitations Respiratory/Chest Respiratory/Chest: Denies cough or dyspnea Gastrointestinal Gastrointestinal: Reports nausea and vomiting; Denies abdominal pain or diarrhea Genitourinary Genitourinary ED: Denies dysuria Musculoskeletal Musculoskeletal: Denies myalgias Integumentary Denies rash Neurologic Neurologic: Denies headache(s) Psychiatric Psychiatric: Denies depression Endocrine Endocrinology: Denies polyuria Hematologic/Lymphatic Hematologic/Lymphatic: Denies easy bruising Allergic/Immunologic Allergic/Immunologic ED: Denies urticaria EXAM Physical Exam Narrative Exam Narrative: Female no acute distress vital signs stable blood pressure 131/96. Heart rate A. fib rate about 119. Pulse ox 96% on room air no hypoxia. H EENT exam unremarkable. Neck nontender. Lungs clear to auscultation bilaterally. Heart irregularly irregular rate about 107. A. fib. No murmur. Chest were nontender. Abdomen soft nontender. Moving all 4 extremities. Calves are nontender without edema. Neurologically she is awake and alert. No focal motor deficits. Const Vital Signs: 10/16/21 16:03 10/16/21 16:30 10/16/21 18:02 Temperature 96.8 F L Temperature Source Temporal Pulse Rate 119 H 104 H Respiratory Rate 16 15 Blood Pressure 131/96 H 103/71 Blood Pressure Mean 107 81 Pulse Ox 96 98 95 Oxygen Delivery Method Room Air Room Air Room Air Positive well nourished and well developed; Negative for cachectic, contractures or unkempt General Appearance ED: well developed and NAD; Negative for unkempt, cachectic, contractures or pallor Nutritional Appearance: Negative for cachectic HEENT Reports moist mucous membranes normocephalic and atraumatic Eyes PERRL and EOMs intact bilaterally General Eye ED: Negative for pale conjunctiva or scleral icterus Neck no lymphadenopathy, supple and no JVD General: Negative for tenderness Chest Wall inspection of chest normal and palpation of chest normal Resp normal respiratory effort and No clear to auscultation bilaterally Effort and Inspection: respiratory distress Auscultation: Negative for rales, rhonchi or wheezes Cardio S1 normal heart sound, S2 normal heart sound and no murmurs; Negative for regular rate or regular rhythm Rate: tachycardic; Negative for bradycardia GI normal to inspection, nondistended, normoactive bowel sounds, soft to palpation, non-tender, non-distended and no masses Back/Spine no CVA tenderness Extremity normal to inspection General Extremety ED: Negative for edema or tenderness General Extremity: Negative for edema Neuro oriented x3 Sensorium / Orientation: awake, alert, oriented to person, oriented to place and oriented to time Psych mental status grossly normal Appearance: Negative for unkempt Mood & Affect: Negative for depressed or tearful Skin no rashes or lesions noted and no wounds General Skin Exam: Negative for jaundice or pallor Heart Score History: Slightly/Non-Suspicious Age: >/= 65 years Risk Factors: 1 or 2 Risk Factors Troponin: </= Normal Limit Score: 3 MDM MDM MDM Narrative Medical decision making narrative: 76-year-old female with known A. fib with A. fib RVR and chest pain. Cardiac work-up. She is on Coumadin INR be obtained. Currently her heart rates about 104. We will watch her decide if she needs to be placed on Cardizem or another rate altering medication. Repeat exam patient is doing well at 6:10 PM. Heart rates about 100. She remains in A. fib. Spoke with patient and her daughter. They are concerned because she has chronic pain in her hip and down her left leg which she sees pain management about. Has had a prior MRI which she states did not show any significant back issues. Should be given an IV dose of fentanyl here and reassess. Patient doing well at 10:15 PM. Be discharged home with [facility]. Lab Data Attestation: I reviewed the patient's lab results. Lab results narrative: CBC White count 8. H&H 12 and 34. Patient is on Coumadin her INR is 2.5. Electrolytes show a gap of 9. BUN is 62 creatinine 1.67. Patient has a history of chronic renal insufficiency from prior labs. Glucose 157. Troponin is less than 3 and second troponin is 4. Labs: Laboratory Results - last 24 hr 10/16/21 10/16/21 10/16/21 16:25 16:25 16:25 WBC 8.8 RBC 3.92 L Hgb 12.1 Hct 34.9 L MCV 89.0 MCH 30.9 MCHC 34.7 RDW Std Deviation 51.8 H RDW Coeff of Nicki 15.9 H Plt Count 269 MPV 9.9 Immature Gran % (Auto) 0.300 Neut % (Auto) 85.6 H Lymph % (Auto) 10.2 L [place] % (Auto) 3.2 Eos % (Auto) 0.6 Baso % (Auto) 0.1 Absolute Neuts (auto) 7.5 Absolute Lymphs (auto) 0.90 Nucleated RBC % 0 PT 26.1 H INR 2.5 Sodium 139 Potassium 4.1 Chloride 104 Carbon Dioxide 26.0 Anion Gap 9 BUN 62 H Creatinine 1.67 H Estim Creat Clear Calc 22.30 Est GFR (MDRD) Af Amer 39 L Est GFR (MDRD) Non-Af 32 L BUN/Creatinine Ratio 37.1 H Glucose 157 H Calcium 9.9 Troponin I High Sens < 3 L 10/16/21 18:24 WBC RBC Hgb Hct MCV MCH MCHC RDW Std Deviation RDW Coeff of Nicki Plt Count MPV Immature Gran % (Auto) Neut % (Auto) Lymph % (Auto) [place] % (Auto) Eos % (Auto) Baso % (Auto) Absolute Neuts (auto) Absolute Lymphs (auto) Nucleated RBC % PT INR Sodium Potassium Chloride Carbon Dioxide Anion Gap BUN Creatinine Estim Creat Clear Calc Est GFR (MDRD) Af Amer Est GFR (MDRD) Non-Af BUN/Creatinine Ratio Glucose Calcium Troponin I High Sens 4 Radiography Chest X-Ray - ED: 1 View, Read by ED Physician, Heart, Lungs, Mediastinum, Bony Structures, No Acute Disease and Chronic Changes Diagnostic Testing: Clinical Impression(s) from Imaging Studies Chest X-Ray 10/16/21 16:30 IMPRESSION: Left basilar airspace disease which may represent atelectasis. No other abnormalities are identified. at 1648 Reported and signed by: Reginald Chao MD Electronically Signed: Reginald Chao MD at 16:47 EDT , Chest x-ray, portable, single view interpreted myself the radiologist shows bilateral atelectasis. Chronic changes no acute process. Rhythm Strip Rhythm Strip: A-fib Rate: 115 Ectopy: None EKG Initial EKG: Attestation: I personally reviewed and interpreted this EKG as follows: Interpretation: Atrial Fibrillation Comments: A. fib rate of 115. ST flattening V3 through V6. Discharge Plan Triage Chief Complaint: Chest Pain Other Complaint: General Illness ED Provider: Juan Wilder Dx/Rx/DC Orders Clinical Impression: Vomiting, History of atrial fibrillation, History of COPD Instructions: ED Chest Pain, Uncertain Cause, ED Vomiting (Adult) Prescriptions: New ondansetron 4 mg tablet,disintegrating 4 mg PO Q6H PRN (Reason: nausea and vomiting) Qty: 7 RF: 0 hydrocodone-acetaminophen 5-325 mg tablet 1 tab PO Q6H PRN (Reason: pain) 3 Days Qty: 10 RF: 0 No Action gabapentin 300 mg capsule 300 mg PO BID RF: 0 albuterol sulfate 90 mcg/actuation HFA aerosol inhaler 2 puff inhalation Q4H PRN (Reason: shortness of breath or wheezing) Qty: 1 RF: 6 diclofenac potassium 50 mg tablet 50 mg PO BID RF: 0 potassium chloride 20 mEq tablet extended release 20 meq PO DAILY Qty: 90 RF: 3 amiodarone 200 mg tablet 200 mg PO DAILY Qty: 90 RF: 3 ondansetron 4 mg tablet,disintegrating 4 mg PO Q6H RF: 0 atenolol 25 MG tablet 25 mg PO BID RF: 0 zolpidem 10 mg tablet 10 mg PO QHS PRN (Reason: sleep) RF: 0 calcium citrate-vitamin D3 1 EACH tablet 1 ea PO DAILY RF: 0 acetaminophen 500 MG tablet 1,000 mg PO DAILY PRN PRN (Reason: Pain 1-10 Or Fever) RF: 0 warfarin 1 MG tablet 0.5 mg PO MOWEFR RF: 0 multivitamin with minerals 1 EACH tablet 1 tab PO DAILY RF: 0 magnesium 30 MG tablet 30 mg PO DAILY RF: 0 coenzyme Q10 100 MG capsule 100 mg PO DAILY RF: 0 levothyroxine 25 MCG tablet 25 mcg PO DAILY RF: 0 warfarin 1 mg Tablet 1 mg PO SUTUTHSA RF: 0 Xtampza ER 13.5 mg cap,sprinkl,ER12hr(DONT CRUSH) 13.5 mg PO BID RF: 0 urxnosvftxf-ivsrgrjhm-puwaawdx 100-62.5-25 mcg blister with device 1 inh INHALATION DAILY Qty: 3 RF: 3 furosemide 40 mg tablet 40 mg PO DAILY RF: 0 Primary Care Provider: Tasneem Beck Referrals: Tasneem Beck MD [Primary Care Provider] - 3-5 Days Activity Restrictions/Additional Instructions: Call and follow-up with either your primary care physician or 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 Continue your current medications. Zofran as needed for nausea. Disposition Disposition: Home, Self Care
[2021-10-16 16:30] VITALS: O2SAT 98
--- NOTE | 2021-10-16 16:30 | RAD_ITS ---
EXAM: XR CHEST, 1 VIEW : 1945 CLINICAL INDICATION: chest pain TECHNIQUE: Frontal view of the chest. This report was created using [employer] report generation technology. COMPARISON: 04/12/2021 FINDINGS: LUNGS AND PLEURAL SPACES: There is minimal left basilar airspace disease. No pneumothorax. No effusion. HEART: Unremarkable. Cardiac silhouette not enlarged. MEDIASTINUM: Central airways and mediastinal contour are unremarkable. BONES/JOINTS: There are bilateral shoulder prostheses. SOFT TISSUES: Unremarkable. RAD/Chest 1 View (Portable) IMPRESSION: Left basilar airspace disease which may represent atelectasis. No other abnormalities are identified. at 1648 Reported and signed by: Reginald Chao MD Electronically Signed: Reginald Chao MD at 16:47 EDT ,
[2021-10-16] MEDS: Ondansetron 4 MG/2 ML Vial IV ×2 (16:36→22:31)
[2021-10-16 16:37] LABS: Absolute Neutrophil Count 7.5 X10^3/uL (2.0-7.7); Basophil# 0.01 X10^3/uL; Basophil% 0.1 % (0-1); Eosinophil# 0.05 X10^3/uL; Eosinophils% 0.6 % (0-5); Hematocrit 34.9 % (37-47); Hemoglobin 12.1 g/dL (12.0-15.0); Lymphocyte % 10.2 % (19-41); Mean Corp Hgb Conc 34.7 g/dL (32-36); Mean Corpuscular Hgb 30.9 pg (27.0-32.0); Mean Platelet Vol. 9.9 fl (6.2-12.0); Monocyte# 0.28 X10^3/uL; Monocyte% 3.2 % (0-10); NRBC Flagged by Analyzer 0 % (0-5); Neutrophil # 7.54 X10^3/uL (2.7-7.7); Neutrophil % 85.6 % (47-70); Platelet Count 269 K/mm3 (150-450); RBC Distribution Width CV 15.9 % (11.6-14.6); RBC Distribution Width SD 51.8 fl (35.1-43.9); Red Blood Count 3.92 M/mm3 (4.2-5.4); White Blood Count 8.8 K/mm3 (4.4-11.0)
[2021-10-16] MEDS: Aspirin 81 MG TAB.CHEW 324 MG PO (16:38)
[2021-10-16 16:42] LABS: International Normalized Ratio 2.5; Prothrombin Time (Protime)PT. 26.1 SECONDS (11.7-14.9)
[2021-10-16 16:50] LABS: Anion Gap 9 (5-15); BUN 62 mg/dL (7-18); BUN/Creat Ratio 37.1 RATIO (10-20); Calcium,Total 9.9 mg/dL (8.5-10.1); Chloride 104 mmol/L (98-107); Creatinine, Serum 1.67 mg/dL (0.55-1.02); EST Glomerular Filtration Rate 32 mL/min (>60); Est Glom Filt Rate - Afr Amer 39 mL/min (>60); Glucose 157 mg/dL (74-106); Potassium 4.1 mmol/L (3.5-5.1); Sodium Level 139 mmol/L (136-145); Troponin-I HS < 3 pg/mL (3.0-54.0)
[2021-10-16 18:02] VITALS: BP 103/71; PULSE 104; RESP 15; O2SAT 95
[2021-10-16] MEDS: fentaNYL 100 MCG/2 ML Ampul 50 MCG IV (18:17)
[2021-10-16 18:45] LABS: Troponin-I HS 4 pg/mL (3.0-54.0)
--- NOTE | 2021-10-16 22:15 | NURSING ---
Pt and family upset about pt not in to see them. Pt has expressed frustration that is taken 3 hrs for him to come back. Dr gomez notified.
[2021-10-16 22:37] VITALS: BP 121/82; PULSE 100; RESP 17; O2SAT 98
== END 2021-10-16 22:56 | disposition home or self-care (01) ==
PROVIDERS: Emergency Provider Emergency Medicine; PCP Internal Medicine; Visit Provider Emergency Medicine
DX: R11.2 Nausea with vomiting, unspecified (principal); J44.9 Chronic obstructive pulmonary disease, unspecified; I48.91 Unspecified atrial fibrillation; I10 Essential (primary) hypertension; Z79.01 Long term (current) use of anticoagulants; Z86.73 Personal history of transient ischemic attack (TIA), and cerebral infarction without residual deficits; Z87.891 Personal history of nicotine dependence; Z79.899 Other long term (current) drug therapy
CPT/HCPCS: 71045; 80048; 84484; 85025; 85610; 93005; 96374; 96375; 96376; 99285; J2405

== ENCOUNTER 2021-10-19 13:48 | Outpatient (CLI) | payer MEDICARE, SELFPAY ==
[2021-10-19 14:42] LABS: Prothrombin Time (Protime)PT. 38.6 SECONDS (11.7-14.9)
[2021-10-19 15:04] LABS: International Normalized Ratio 4.1
[2021-10-19 15:05] LABS: T4 Free Direct 0.97 ng/dL (0.76-1.46); Thyroid Stim Hormone (TSH) 1.34 uIU/mL (0.358-3.74)
== END 2021-10-19 23:59 | disposition home or self-care (01) ==
LOC: LAB 13:49
PROVIDERS: PCP Internal Medicine; Referring Provider Nurse Practitioner Gerontology; Visit Provider Nurse Practitioner Gerontology
DX: I48.0 Paroxysmal atrial fibrillation (principal)
CPT/HCPCS: 36415; 84439; 84443; 85610

== ENCOUNTER 2021-10-29 15:55 | Emergency (ER) | payer MEDICARE, SELFPAY ==
[2021-10-29 15:56] VITALS: BP 101/79; PULSE 105; RESP 16; TEMP 36.2; O2SAT 96; BMI 26.4
[2021-10-29 15:58] VITALS: BP 101/79; PULSE 105; RESP 16; TEMP 36.2; O2SAT 96
--- NOTE | 2021-10-29 16:22 | EKG12_ITS ---
Test Reason : SOB Blood Pressure : / mmHG Vent. Rate : 099 BPM Atrial Rate : 115 BPM P-R Int : 000 ms QRS Dur : 088 ms QT Int : 374 ms P-R-T Axes : 000 026 -18 degrees QTc Int : 479 ms Atrial fibrillation with premature ventricular or aberrantly conducted complexes Nonspecific ST and T wave abnormality Prolonged QT Abnormal ECG Confirmed by MADELINE HAGEN, PAM ([id number]), graphics editor NAVID SALAS ([id number]) on 11/01/2021 11:25:15 AM Referred By: GILL/FORREST Confirmed By:PAM CORREA MD
--- NOTE | 2021-10-29 16:25 | EDS_ITS ---
HPI History of Present Illness Chief Complaint: Shortness of Breath Informant: patient Narrative Narrative: Patient presents with multiple complaints today. First complaint is that she has been having some dyspnea and using her rescue inhaler slightly more frequently than normal. She did use it before coming in and she has no dyspnea now. It does help. She does not seem to get dyspnea laying down flat but she cannot lay flat due to other issues as below. Patient also has her primary complaint that she has left hip pain. This has been going on since her surgery in April. She has seen her orthopedic surgeon, spine surgeon, pain management and nobody can manage her pain. She is also seeing her primary physician. She is currently on oxycodone for this. However as she increases dose it increases nausea. She states she is not taking it because she does not want to be taking that stuff. I explained that if she wants to have some pain relief she will need to take some pain medicines. She then states they also do not work. She has also had injections at least twice. Nothing helps this. However, she does get up and walk around a lot. She cannot lay down because this makes her left hip pain worse. It is better if she gets up and walk so she is standing up most of the day. She never lays down flat. This is likely contributing to her third complaint. Her third complaint is that she has bilateral leg swelling. She does have a his tory of CHF and is on Lasix. When she takes her Lasix she still makes good urine just like she did before. If she elevates her legs that they do seem to improve but she cannot do it for long because it makes her left hip pain worse. Her fourth complaint is that she fell about a week ago and hurt her right leg. At the time her INR was in the mid sevens. She has extensive bruising in that area. She states her INR came down to the mid threes and is now down to 1.9. [facility] Medical History Bronchitis Carotid bruit Essential hypertension GERD (gastroesophageal reflux disease) Hyperlipidemia Nonrheumatic aortic (valve) insufficiency Nonrheumatic tricuspid valve regurgitation Osteoarthritis Paroxysmal atrial fibrillation Pneumonia PUD (peptic ulcer disease) Small bowel obstruction TIA (transient ischemic attack) Home Medications calcium citrate-vitamin D3 1 ea PO DAILY 01/16/15 [History Last Taken 09/25/20] zolpidem 10 mg tablet 10 mg PO QHS PRN tab 03/13/18 [History Last Taken 09/24/20] albuterol sulfate 90 mcg/actuation aerosol inhaler 2 puff INHALATION Q4H PRN #1 device 08/19/19 [Rx Last Taken 1 Week Ago ~09/18/20] diclofenac potassium 50 mg tablet 50 mg PO BID 09/15/20 [History Last Taken 0 09/25/20] gabapentin 300 mg capsule 300 mg PO BID cap 09/15/20 [History Last Taken 09/24/20] acetaminophen 1,000 mg PO DAILY PRN PRN 09/25/20 [History Last Taken 09/22/20] coenzyme Q10 100 mg PO DAILY 09/25/20 [History Last Taken 09/25/20] levothyroxine 25 mcg PO DAILY 09/25/20 [History Last Taken 09/25/20] magnesium 30 mg PO DAILY 09/25/20 [History Last Taken 09/24/20] multivitamin with minerals 1 tab PO DAILY 09/25/20 [History Last Taken 09/25/20] fluticasone fur. 100 mcg-umeclid 62.5 mcg-vilant 25 mcg inhalat.powder 1 inh INHALATION DAILY #3 each 02/14/21 [Rx Last Taken Unknown] amiodarone 200 mg tablet 200 mg PO DAILY #90 tab 03/09/21 [Rx Last Taken Unknown] potassium chloride 20 mEq tablet,extended release 20 meq PO DAILY #90 tab 03/09/21 [Rx Last Taken Unknown] furosemide 40 mg tablet 40 mg PO DAILY tab 09/03/21 [History Last Taken Unknown] ondansetron 4 mg disintegrating tablet 4 mg PO Q6H 09/03/21 [History Last Taken Unknown] hydrocodone-acetaminophen 1 tab PO Q6H PRN 3 Days #10 tab 10/16/21 [Rx Last Taken Unknown] ondansetron 4 mg PO Q6H PRN #7 tab 10/16/21 [Rx Last Taken Unknown] oxycodone myristate [Xtampza ER] 13.5 mg PO BID 10/16/21 [History Last Taken Unknown] warfarin 1 mg tablet 0.5 mg PO MOWEFR 10/19/21 [History Last Taken Unknown] warfarin 1 mg tablet 1 mg PO SUTUTHSA 10/19/21 [History Last Taken Unknown] atenolol 25 mg tablet 25 mg PO BID #60 tab 10/22/21 [Rx Last Taken Unknown] diltiazem HCl 120 mg capsule,extended release 24 hr 120 mg PO DAILY #30 cap 10/22/21 [Rx Last Taken Unknown] hydromorphone [Dilaudid] 2 mg PO Q6H PRN 3 Days #10 tab 10/29/21 [Rx Last Taken Unknown] Allergy/AdvReac Type Severity Reaction Status Date / Time cortisone Allergy a.fib Verified 10/29/21 15:58 hydrocodone [From Vicodin] AdvReac Severe Vomiting Verified 10/29/21 15:58 Lbxlxvd-HIY-ShG Reductase AdvReac Severe Myalgias Verified 10/29/21 15:58 Inhibitor [Gdjuqez-Rwp-Wzp Reductase Inhibitor] adhesive AdvReac Rash if on Verified 10/29/21 15:58 for extended period of time Family History Father CVA (cerebral vascular accident) Mother CVA (cerebral vascular accident) Sister CAD (coronary artery disease) Atrial fibrillation Sister COPD (chronic obstructive pulmonary disease) Surgical History H/O left wrist surgery History of back surgery History of left hip replacement History of right hip replacement History of rotator cuff surgery S/P foot surgery, right Social History pets and animals: Yes pets and animals: dog(s) Smoking Status: Former smoker Tobacco: How many years used: 36 how long ago did patient quit smokin alcohol intake: current alcohol intake frequency: a few times a week Alcohol type: beer details: rare substance use type: does not use ROS ROS ED Constitutional Constitutional ED: Denies chills or fever(s) Eyes Eyes: Denies blurry vision ENT ENT ED: Denies rhinorrhea Cardiovascular Cardiovascular: Denies chest pain, orthopnea, palpitations or racing heartbeat Respiratory/Chest Respiratory/Chest: Reports cough and dyspnea; Denies dyspnea on exertion, orthopnea or sputum Gastrointestinal Gastrointestinal: Denies diarrhea, nausea or vomiting Genitourinary Genitourinary ED: Denies dysuria Musculoskeletal Musculoskeletal: Reports other Details: Left hip pain, see history of present illness. Integumentary Denies rash Neurologic Neurologic: Denies headache(s), paresthesias or weakness Psychiatric Psychiatric: Reports anxiety and depression Endocrine Endocrinology: Denies polyuria Allergic/Immunologic Allergic/Immunologic ED: Denies urticaria EXAM Physical Exam Const Vital Signs: 10/29/21 15:56 10/29/21 15:58 Temperature 97.2 F L 97.2 F L Temperature Source Temporal Temporal Pulse Rate 105 H 105 H Respiratory Rate 16 16 Blood Pressure 101/79 101/79 Blood Pressure Mean 86 86 Pulse Ox 96 96 Oxygen Delivery Method Room Air Room Air Positive well nourished General Appearance ED: NAD HEENT Reports moist mucous membranes Eyes General Eye ED: Negative for pale conjunctiva Neck no JVD Neck Narrative: No JVD or HJR. Chest Wall inspection of chest normal Resp normal respiratory effort and clear to auscultation bilaterally Resp Narrative: I do not hear notable wheezes or rales. Auscultation: Negative for rales or wheezes Cardio regular rate Rhythm: abnormal rhythm GI normal to inspection, nondistended, normoactive bowel sounds and non-tender Palpation: soft Extremity Extremity Narrative: Bilateral lower extremity edema mostly below the knees. A fair amount of ecchymosis on the right. No focal area of tenderness although she states most of the pain is on the lateral right de la fuente area. Neuro oriented x3 Sensorium / Orientation: alert Psych mental status grossly normal Skin Skin Narrative: Contusion as above MDM MDM MDM Narrative Medical decision making narrative: Patient did get good relief of pain after her Dilaudid. Her hemoglobin is slightly lower but she has significant bruising when her INR was 7.7. She denies any black or bloody stools. INR is 1.8. Electrolytes showed minimal elevation of creatinine at 1.6. Chest x-ray shows some mild disc avoid atelectasis. X-ray of the leg shows no acute process. Patient has an MRI scheduled for Friday. She wants to do this. She is comfortable going home. She states she is not seeing Dr. Ball for pain management anymore. She still has a couple pain pills at home. I explained that I will write for some pain meds because I think she does have genuine pain. But she needs to see her physician, orthopedics, back physician to manage this. Her symptoms been going on for 6 months. I will try to help. We discussed reasons to return. Lab Data Attestation: I reviewed the patient's lab results. Labs: Laboratory Results - last 24 hr 10/29/21 10/29/21 10/29/21 16:30 16:30 16:30 WBC 9.0 RBC 3.24 L Hgb 9.8 L Hct 31.1 L MCV 96.0 MCH 30.2 MCHC 31.5 L RDW Std Deviation 58.8 H RDW Coeff of Nicki 16.9 H Plt Count 441 MPV 9.4 Immature Gran % (Auto) 0.600 Neut % (Auto) 73.0 H Lymph % (Auto) 15.5 L Victoria % (Auto) 9.2 Eos % (Auto) 1.6 Baso % (Auto) 0.1 Absolute Neuts (auto) 6.6 Absolute Lymphs (auto) 1.40 Nucleated RBC % 0 PT 20.3 H INR 1.8 Sodium 143 Potassium 4.0 Chloride 110 H Carbon Dioxide 27.0 Anion Gap 6 BUN 41 H Creatinine 1.63 H Estim Creat Clear Calc 22.85 Est GFR (MDRD) Af Amer 40 L Est GFR (MDRD) Non-Af 33 L BUN/Creatinine Ratio 25.2 H Glucose 133 H Calcium 9.4 Troponin I High Sens < 3 L B-Natriuretic Peptide 10/29/21 16:30 WBC RBC Hgb Hct MCV MCH MCHC RDW Std Deviation RDW Coeff of Nicki Plt Count MPV Immature Gran % (Auto) Neut % (Auto) Lymph % (Auto) Victoria % (Auto) Eos % (Auto) Baso % (Auto) Absolute Neuts (auto) Absolute Lymphs (auto) Nucleated RBC % PT INR Sodium Potassium Chloride Carbon Dioxide Anion Gap BUN Creatinine Estim Creat Clear Calc Est GFR (MDRD) Af Amer Est GFR (MDRD) Non-Af BUN/Creatinine Ratio Glucose Calcium Troponin I High Sens B-Natriuretic Peptide 539.9 H Radiography Diagnostic Testing: Clinical Impression(s) from Imaging Studies Chest X-Ray 10/29/21 17:00 IMPRESSION: Less than optimal inspiratory effort and minor left lower lobe discoid atelectasis or scarring. Electronically Signed: Adonay Griffin MD at 17:52 EDT , Tibia/Fibula X-Ray 10/29/21 17:00 IMPRESSION: Normal x-ray examination of the tibia and fibula. Electronically Signed: Adonay Griffin MD at 18:02 EDT Reading Location ID and State: [facility] / [place] , Service support , EKG Initial EKG: Comments: EKG done for complaint of occasional dyspnea and history of A. fib. EKG read by me shows atrial fibrillation with rate of 99. Occasional PVC. No acute ST elevation. QRS duration is normal. QTc is slightly long at 479 ms but shorter than her most recent at 16 October of this year. Discharge Plan Triage Chief Complaint: Shortness of Breath ED Provider: Ovi Sierra Dx/Rx/DC Orders Clinical Impression: Acute pain of left hip, Acute left lumbar radiculopathy Instructions: ED Sciatica Prescriptions: New hydromorphone [Dilaudid] 2 mg tablet 2 mg PO Q6H PRN (Reason: pain) 3 Days Qty: 10 RF: 0 No Action gabapentin 300 mg capsule 300 mg PO BID RF: 0 albuterol sulfate 90 mcg/actuation HFA aerosol inhaler 2 puff inhalation Q4H PRN (Reason: shortness of breath or wheezing) Qty: 1 RF: 6 diclofenac potassium 50 mg tablet 50 mg PO BID RF: 0 potassium chloride 20 mEq tablet extended release 20 meq PO DAILY Qty: 90 RF: 3 amiodarone 200 mg tablet 200 mg PO DAILY Qty: 90 RF: 3 ondansetron 4 mg tablet,disintegrating 4 mg PO Q6H RF: 0 zolpidem 10 mg tablet 10 mg PO QHS PRN (Reason: sleep) RF: 0 calcium citrate-vitamin D3 1 EACH tablet 1 ea PO DAILY RF: 0 acetaminophen 500 MG tablet 1,000 mg PO DAILY PRN PRN (Reason: Pain 1-10 Or Fever) RF: 0 multivitamin with minerals 1 EACH tablet 1 tab PO DAILY RF: 0 magnesium 30 MG tablet 30 mg PO DAILY RF: 0 coenzyme Q10 100 MG capsule 100 mg PO DAILY RF: 0 levothyroxine 25 MCG tablet 25 mcg PO DAILY RF: 0 Xtampza ER 13.5 mg cap,sprinkl,ER12hr(DONT CRUSH) 13.5 mg PO BID RF: 0 ondansetron 4 mg tablet,disintegrating 4 mg PO Q6H PRN (Reason: nausea and vomiting) Qty: 7 RF: 0 hydrocodone-acetaminophen 5-325 mg tablet 1 tab PO Q6H PRN (Reason: pain) 3 Days Qty: 10 RF: 0 iflcwqeyhzr-ciqhiokjb-azafuaff 100-62.5-25 mcg blister with device 1 inh INHALATION DAILY Qty: 3 RF: 3 furosemide 40 mg tablet 40 mg PO DAILY RF: 0 warfarin 1 mg tablet 0.5 mg PO MOWEFR RF: 0 warfarin 1 mg tablet 1 mg PO SUTUTHSA RF: 0 atenolol 25 mg tablet 25 mg PO BID Qty: 60 RF: 11 diltiazem HCl 120 mg capsule,extended release 24hr 120 mg PO DAILY Qty: 30 RF: 3 Primary Care Provider: Tasneem Beck Referrals: Tasneem Beck MD [Primary Care Provider] - As soon as possible Disposition Disposition: Home, Self Care
[2021-10-29] MEDS: Furosemide 40 MG/4 ML Vial IV (16:34)
[2021-10-29] MEDS: Ondansetron 4 MG/2 ML Vial IV (16:34)
[2021-10-29] MEDS: Morphine 4 MG/ML Syringe IV (16:34)
[2021-10-29 16:40] LABS: Absolute Neutrophil Count 6.6 X10^3/uL (2.0-7.7); Basophil# 0.01 X10^3/uL; Basophil% 0.1 % (0-1); Eosinophil# 0.14 X10^3/uL; Eosinophils% 1.6 % (0-5); Hematocrit 31.1 % (37-47); Hemoglobin 9.8 g/dL (12.0-15.0); Lymphocyte % 15.5 % (19-41); Mean Corp Hgb Conc 31.5 g/dL (32-36); Mean Corpuscular Hgb 30.2 pg (27.0-32.0); Mean Platelet Vol. 9.4 fl (6.2-12.0); Monocyte# 0.83 X10^3/uL; Monocyte% 9.2 % (0-10); NRBC Flagged by Analyzer 0 % (0-5); Neutrophil # 6.59 X10^3/uL (2.7-7.7); Platelet Count 441 K/mm3 (150-450); RBC Distribution Width CV 16.9 % (11.6-14.6); RBC Distribution Width SD 58.8 fl (35.1-43.9); Red Blood Count 3.24 M/mm3 (4.2-5.4)
[2021-10-29] MEDS: Ipratropium/Albuterol Sulfate 3 ML AMPUL.NEB INHALATION (16:47)
[2021-10-29 16:54] LABS: International Normalized Ratio 1.8; Prothrombin Time (Protime)PT. 20.3 SECONDS (11.7-14.9)
[2021-10-29 16:58] LABS: Anion Gap 6 (5-15); BUN 41 mg/dL (7-18); BUN/Creat Ratio 25.2 RATIO (10-20); Calcium,Total 9.4 mg/dL (8.5-10.1); Chloride 110 mmol/L (98-107); Creatinine, Serum 1.63 mg/dL (0.55-1.02); EST Glomerular Filtration Rate 33 mL/min (>60); Est Glom Filt Rate - Afr Amer 40 mL/min (>60); Estimated Creatinine Clearance 22.85 ml/min; Glucose 133 mg/dL (74-106); Sodium Level 143 mmol/L (136-145); Troponin-I HS < 3 pg/mL (3.0-54.0)
--- NOTE | 2021-10-29 17:00 | RAD_ITS ---
STUDY: X-RAY - RIGHT TIBIA AND FIBULA REASON FOR EXAM: Female, 76 years old. trauma TECHNIQUE: 2 view(s) of the tibia and fibula were obtained. COMPARISON: None. FINDINGS: Normal visualized tibia. Normal visualized fibula. The soft tissue structures are unremarkable. RAD/Tibia & Fibula 2 Views IMPRESSION: Normal x-ray examination of the tibia and fibula. Electronically Signed: Adonay Griffin MD at 18:02 EDT ,
--- NOTE | 2021-10-29 17:00 | RAD_ITS ---
STUDY: X-RAY CHEST REASON FOR EXAM: Female, 76 years old. COPD TECHNIQUE: AP portable COMPARISON: 10/16/2021 FINDINGS: Less than optimal inspiratory effort is seen. There is scarring or discoid atelectasis in left lower lobe.. There is no demonstrated pleural abnormality. Normal size heart. Normal mediastinum and fay. Normal visualized pulmonary arteries. Mildly calcified aortic arch and descending thoracic aorta. Dorsal spine demonstrates degenerative change. Normal visualized ribs, and clavicles. Bilateral shoulder prostheses are noted There is no demonstrated abnormality of the visualized soft tissue structures of the upper abdomen. RAD/Chest 1 View (Portable) IMPRESSION: Less than optimal inspiratory effort and minor left lower lobe discoid atelectasis or scarring. Electronically Signed: Adonay Griffin MD at 17:52 EDT ,
[2021-10-29 17:08] LABS: BNP,B-Type NATRIURETIC PEPTIDE 539.9 pg/mL (0-100)
[2021-10-29] MEDS: HYDROmorphone 1 MG/ML Syringe IV (18:22)
== END 2021-10-29 20:30 | disposition home or self-care (01) ==
PROVIDERS: Emergency Provider Emergency Medicine; PCP Internal Medicine; Visit Provider Emergency Medicine
DX: M25.552 Pain in left hip (principal); I50.9 Heart failure, unspecified; M54.16 Radiculopathy, lumbar region; Z79.01 Long term (current) use of anticoagulants; Z86.73 Personal history of transient ischemic attack (TIA), and cerebral infarction without residual deficits; Z87.891 Personal history of nicotine dependence
CPT/HCPCS: 71045; 73590; 80048; 83880; 84484; 85025; 85610; 93005; 94640; 96374; 96375; 99283; A4216; J1940; J2405

== ENCOUNTER 2021-11-02 06:32 | Outpatient (CLI) | payer MEDICARE, SELFPAY ==
--- NOTE | 2021-11-02 07:00 | MRI_ITS ---
STUDY: MRI LEFT HIP REASON FOR EXAM: Female, 76 years old. LEFT hip pain, prosthesis TECHNIQUE: Standardized fat and water weighted pulse sequences were obtained in all 3 orthogonal planes. COMPARISON: Pelvic x-ray dated May 02, 2017 FINDINGS: Bilateral hip prostheses are present without obvious edema or fracture deformity or cortical erosion of the bone hardware interface. A small left hip joint effusion is present. Moderate fatty atrophy of multiple left hip muscles. Rectosigmoid diverticulosis partially visualized. Interbody graft of the L5-S1 level noted. Normal gluteus minimus, medius and iliopsoas tendons and distal insertions. There is no trochanteric, iliopsoas or iliopectineal bursitis. Normal superior and inferior pubic rami. Normal pubic symphysis. Normal ischial tuberosity. There is mild tendinosis of the origins of the left hamstring tendons arising from the ischial tuberosity. Normal visualized iliac wing, sacroiliac joint, and sacral ala. Normal visualized soft tissue structures of the pelvis. MRI/Lower Ext Joint Only (Routine) IMPRESSION: 1. Small left hip joint effusion 2. Moderate atrophy of several of the left hip muscles 3. Mild left hamstring tendinosis 4. No visualized significant bony abnormality Electronically Signed: Beto Thomas MD at 18:54 EDT ,
== END 2021-11-02 23:59 | disposition home or self-care (01) ==
PROVIDERS: PCP Internal Medicine; Referring Provider Specialist; Visit Provider Specialist
DX: M25.552 Pain in left hip (principal); Z96.642 Presence of left artificial hip joint
CPT/HCPCS: 73721

== ENCOUNTER 2021-11-05 12:53 | Emergency (ER) | payer MEDICARE, SELFPAY ==
[2021-11-05 12:54] VITALS: BP 120/98; PULSE 120; RESP 20; TEMP 36.5; O2SAT 93; BMI 26.4
[2021-11-05 13:03] VITALS: O2SAT 94
--- NOTE | 2021-11-05 13:03 | EKG12_ITS ---
Test Reason : SOB AFIB Blood Pressure : / mmHG Vent. Rate : 101 BPM Atrial Rate : 072 BPM P-R Int : 000 ms QRS Dur : 084 ms QT Int : 376 ms P-R-T Axes : 000 018 -59 degrees QTc Int : 487 ms Atrial fibrillation Nonspecific ST & T wave abnormality Abnormal ECG Confirmed by MADELINE HAGEN, PAM ([id number]), editor dictionary CUAUHTEMOC VILLAGRAN ([id number]) on 11/07/2021 11:37:00 AM Referred By: MILDRED Confirmed By:PAM CORREA MD
--- NOTE | 2021-11-05 13:09 | RAD_ITS ---
STUDY: X-RAY CHEST REASON FOR EXAM: Female, 76 years old. Chest pain TECHNIQUE: Single AP portable view of the chest. COMPARISON: Comparison is made with prior study dated 10/29/2021. FINDINGS: Patchy infiltrate in the lower lobes slightly worse on the left side. Follow-up is recommended. There is no demonstrated pleural abnormality. Normal size heart. Normal mediastinum and fay. Normal visualized pulmonary arteries. Normal visualized aortic arch and descending thoracic aorta. There are diffuse degenerative changes of the visualized thoracic spine. The patient is status post bilateral shoulder replacement. There is no demonstrated abnormality of the visualized soft tissue structures of the upper abdomen. RAD/Chest 1 View (Portable) IMPRESSION: Patchy bibasilar infiltrates worse at the left lung base. Electronically Signed: Gaurav Trent MD at 13:39 EDT ,
[2021-11-05 13:38] LABS: Absolute Lymphocyte Count 1.22 X10^3/uL (0.83-4.51); Absolute Neutrophil Count 5.2 X10^3/uL (2.0-7.7); Basophil# 0.02 X10^3/uL; Basophil% 0.3 % (0-1); Eosinophil# 0.18 X10^3/uL; Eosinophils% 2.5 % (0-5); Hematocrit 29.4 % (37-47); Hemoglobin 9.3 g/dL (12.0-15.0); Lymphocyte # 1.22 X10^3/ul (0.83-4.51); Lymphocyte % 17.1 % (19-41); Mean Corp Hgb Conc 31.6 g/dL (32-36); Mean Corpuscular Hgb 30.2 pg (27.0-32.0); Mean Corpuscular Volume 95.5 fL (81-99); Monocyte# 0.49 X10^3/uL; Monocyte% 6.9 % (0-10); NRBC Flagged by Analyzer 0 % (0-5); Neutrophil # 5.18 X10^3/uL (2.7-7.7); Neutrophil % 72.6 % (47-70); Platelet Count 372 K/mm3 (150-450); RBC Distribution Width CV 15.7 % (11.6-14.6); RBC Distribution Width SD 54.7 fl (35.1-43.9); Red Blood Count 3.08 M/mm3 (4.2-5.4); White Blood Count 7.1 K/mm3 (4.4-11.0)
[2021-11-05 13:50] LABS: Anion Gap 5 (5-15); BUN 47 mg/dL (7-18); Calcium,Total 9.1 mg/dL (8.5-10.1); Chloride 105 mmol/L (98-107); Creatinine, Serum 1.47 mg/dL (0.55-1.02); EST Glomerular Filtration Rate 37 mL/min (>60); Est Glom Filt Rate - Afr Amer 45 mL/min (>60); Estimated Creatinine Clearance 25.34 ml/min; Glucose 191 mg/dL (74-106); Potassium 3.3 mmol/L (3.5-5.1); Sodium Level 141 mmol/L (136-145)
[2021-11-05 13:56] VITALS: O2SAT 93
[2021-11-05 13:56] LABS: Troponin-I HS (w/2H Reflex) < 3 pg/mL (3.0-54.0)
[2021-11-05 13:59] LABS: International Normalized Ratio 2.3; Prothrombin Time (Protime)PT. 24.4 SECONDS (11.7-14.9)
[2021-11-05 14:00] LABS: BNP,B-Type NATRIURETIC PEPTIDE 619.5 pg/mL (0-100)
[2021-11-05 14:27] VITALS: O2SAT 100
[2021-11-05 15:13] VITALS: BP 148/87; PULSE 96; RESP 24; O2SAT 98
[2021-11-05 15:35] LABS: Reflex Troponin-HS? (from REC) Y
--- NOTE | 2021-11-05 16:14 | ED.VIS.DYS ---
HPI History of Present Illness Chief Complaint: Shortness of Breath Narrative Narrative: 76-year-old female presenting with shortness of breath and history of atrial fibrillation. She states she has been in atrial fibrillation for weeks. She is on Coumadin, for history of PE. At last check a couple of days ago her pressure INR was five-point 0.8 and therefore subtherapeutic. She feels like her hearts been racing more. Previously she states she was on 100 of atenolol and states that this made her hypotensive. This was changed and she is now on Cardizem 120 extended release and 25 mg of atenolol twice daily. She states that her heart is still sometimes fast. She reports dyspnea exertion. She is taking Lasix 80 daily. Walking she still has lower extremity edema. No fever, chills, cough, body aches. PFSH PFS Medical History Bronchitis Carotid bruit Essential hypertension GERD (gastroesophageal reflux disease) Hyperlipidemia Nonrheumatic aortic (valve) insufficiency Nonrheumatic tricuspid valve regurgitation Osteoarthritis Paroxysmal atrial fibrillation Pneumonia PUD (peptic ulcer disease) Small bowel obstruction TIA (transient ischemic attack) Home Medications calcium citrate-vitamin D3 1 ea PO DAILY 08/12/14 [History Last Taken 09/25/20] zolpidem 10 mg tablet 10 mg PO QHS PRN tab 03/13/18 [History Last Taken 09/24/20] albuterol sulfate 90 mcg/actuation aerosol inhaler 2 puff INHALATION Q4H PRN #1 device 08/19/19 [Rx Last Taken 1 Week Ago ~09/18/20] diclofenac potassium 50 mg tablet 50 mg PO BID 09/15/20 [History Last Taken 09/25/20] gabapentin 300 mg capsule 300 mg PO BID cap 09/15/20 [History Last Taken 09/24/20] acetaminophen 1,000 mg PO DAILY PRN PRN 09/25/20 [History Last Taken 09/22/20] coenzyme Q10 100 mg PO DAILY 09/25/20 [History Last Taken 09/25/20] levothyroxine 25 mcg PO DAILY 09/25/20 [History Last Taken 09/25/20] magnesium 30 mg PO DAILY 09/25/20 [History Last Taken 09/24/20] multivitamin with minerals 1 tab PO DAILY 09/25/20 [History Last Taken 09/25/20] fluticasone fur. 100 mcg-umeclid 62.5 mcg-vilant 25 mcg inhalat.powder 1 inh INHALATION DAILY #3 each 02/14/21 [Rx Last Taken Unknown] amiodarone 200 mg tablet 200 mg PO DAILY #90 tab 03/09/21 [Rx Last Taken Unknown] potassium chloride 20 mEq tablet,extended release 20 meq PO DAILY #90 tab 03/09/21 [Rx Last Taken Unknown] furosemide 40 mg tablet 40 mg PO DAILY tab 09/03/21 [History Last Taken Unknown] ondansetron 4 mg disintegrating tablet 4 mg PO Q6H 09/03/21 [History Last Taken Unknown] hydrocodone-acetaminophen 1 tab PO Q6H PRN 3 Days #10 tab 10/16/21 [Rx Last Taken Unknown] ondansetron 4 mg PO Q6H PRN #7 tab 10/16/21 [Rx Last Taken Unknown] oxycodone myristate [Xtampza ER] 13.5 mg PO BID 10/16/21 [History Last Taken Unknown] warfarin 1 mg tablet 0.5 mg PO MOWEFR 10/19/21 [History Last Taken Unknown] warfarin 1 mg tablet 1 mg PO SUTUTHSA 10/19/21 [History Last Taken Unknown] atenolol 25 mg tablet 25 mg PO BID #60 tab 10/22/21 [Rx Last Taken Unknown] diltiazem HCl 120 mg capsule,extended release 24 hr 120 mg PO DAILY #30 cap 10/22/21 [Rx Last Taken Unknown] hydromorphone [Dilaudid] 2 mg PO Q6H PRN 3 Days #10 tab 10/29/21 [Rx Last Taken Unknown] ondansetron 4 mg PO Q8H PRN #10 tab 10/29/21 [Rx Last Taken Unknown] Allergy/AdvReac Type Severity Reaction Status Date / Time cortisone Allergy a.fib Verified 11/05/21 12:57 hydrocodone [From Vicodin] AdvReac Severe Vomiting Verified 11/05/21 12:57 Rtgvifo-VVZ-DjH Reductase AdvReac Severe Myalgias Verified 11/05/21 12:57 Inhibitor [Azbkmnk-Fba-Otq Reductase Inhibitor] adhesive AdvReac Rash if on Verified 11/05/21 12:57 for extended period of time Family History Father CVA (cerebral vascular accident) Mother CVA (cerebral vascular accident) Sister CAD (coronary artery disease) Atrial fibrillation Sister COPD (chronic obstructive pulmonary disease) Surgical History H/O left wrist surgery History of back surgery History of left hip replacement History of right hip replacement History of rotator cuff surgery S/P foot surgery, right Social History pets and animals: Yes pets and animals: dog(s) Smoking Status: Former smoker Tobacco: How many years used: 36 how long ago did patient quit smokin alcohol intake: current alcohol intake frequency: a few times a week Alcohol type: beer details: rare substance use type: does not use ROS ROS ED Constitutional Constitutional ED: Denies chills, fever(s) or sweats Eyes Eyes: Denies blurry vision ENT ENT ED: Denies rhinorrhea or sore throat Cardiovascular Cardiovascular: Reports palpitations; Denies chest pain Respiratory/Chest Respiratory/Chest: Reports dyspnea and dyspnea on exertion Gastrointestinal Gastrointestinal: Denies abdominal pain or nausea Genitourinary Genitourinary ED: Denies dysuria or hematuria Musculoskeletal Musculoskeletal: Denies arthralgias, back pain, myalgias or neck pain Integumentary Denies rash Neurologic Neurologic: Denies headache(s), paresthesias or weakness Psychiatric Psychiatric: Denies anxiety or depression EXAM Physical Exam Const Vital Signs: 11/05/21 12:54 11/05/21 13:03 11/05/21 13:56 Temperature 97.7 F L Temperature Source Temporal Pulse Rate 120 H Respiratory Rate 20 H Respiratory Effort Short of Breath Respiratory Depth Shallow Respiratory Pattern Irregular Blood Pressure 120/98 H Blood Pressure Mean 105 Pulse Ox 93 94 Oxygen Delivery Method Room Air Room Air Room Air 11/05/21 15:13 Temperature Temperature Source Pulse Rate 96 Respiratory Rate 24 H Respiratory Effort Respiratory Depth Respiratory Pattern Blood Pressure 148/87 H Blood Pressure Mean 107 Pulse Ox 98 Oxygen Delivery Method Room Air Positive well nourished General Appearance ED: NAD; Negative for pallor HEENT Reports moist mucous membranes atraumatic Eyes PERRL and EOMs intact bilaterally Resp normal respiratory effort and clear to auscultation bilaterally Cardio Rate: tachycardic Rhythm: abnormal rhythm irregularly irregular GI non-tender Palpation: soft Extremity General Extremety ED: Yes edema; Negative for tenderness General Extremity: edema Neuro oriented x3 and CN's II-XII intact bilaterally Sensorium / Orientation: alert Psych mental status grossly normal Skin General Skin Exam: Negative for jaundice or pallor MDM MDM MDM Narrative Medical decision making narrative: Patient presenting with dyspnea on exertion. She states he has a history of CHF and atrial fibrillation. Her heart has been a little fast. She is currently on Cardizem 120 mg extended release and 25 mg of atenolol p.o. twice daily. Heart rate is around 100 on my exam. O2 sat was 98% on room air. With ambulation she drops to 93%. Blood work today shows a white blood cell count 7.1, hemoglobin 9.3 with her last hemoglobin 9.6. INR therapeutic at 2.3 creatinine improved to 1.47, potassium slightly low at 3.3. High-sensitivity troponin is less than 3. BNP slightly elevated over a few days ago. Chest x-ray on my interpretation shows basilar infiltrates and radiologist agree. I do not believe is an infectious etiology. Likely this is from her heart rhythm being fast. I do not think she needs to be admitted because she is not hypoxic or tachycardic currently. I spoke with Dr. Elizondo who agrees. He recommended we keep her on the atenolol 25 mg p.o. twice daily and double her Cardizem to 120 p.o. twice daily. He wishes to give her 40 mg Lasix prior to discharge. This was discussed with her at length. Impression: 1. Atrial fibrillation 2. history of anemia 3. Dyspnea Lab Data Labs: Laboratory Results - last 24 hr 11/05/21 11/05/21 11/05/21 13:29 13:29 13:29 WBC 7.1 RBC 3.08 L Hgb 9.3 L Hct 29.4 L MCV 95.5 MCH 30.2 MCHC 31.6 L RDW Std Deviation 54.7 H RDW Coeff of Nicki 15.7 H Plt Count 372 MPV 9.0 Immature Gran % (Auto) 0.600 Neut % (Auto) 72.6 H Lymph % (Auto) 17.1 L [place] % (Auto) 6.9 Eos % (Auto) 2.5 Baso % (Auto) 0.3 Absolute Neuts (auto) 5.2 Absolute Lymphs (auto) 1.22 Nucleated RBC % 0 PT 24.4 H INR 2.3 Sodium 141 Potassium 3.3 L Chloride 105 Carbon Dioxide 31.0 Anion Gap 5 BUN 47 H Creatinine 1.47 H Estim Creat Clear Calc 25.34 Est GFR (MDRD) Af Amer 45 L Est GFR (MDRD) Non-Af 37 L BUN/Creatinine Ratio 32.0 H Glucose 191 H Calcium 9.1 Troponin I High Sens B-Natriuretic Peptide 11/05/21 11/05/21 13:29 13:29 WBC RBC Hgb Hct MCV MCH MCHC RDW Std Deviation RDW Coeff of Nicki Plt Count MPV Immature Gran % (Auto) Neut % (Auto) Lymph % (Auto) [place] % (Auto) Eos % (Auto) Baso % (Auto) Absolute Neuts (auto) Absolute Lymphs (auto) Nucleated RBC % PT INR Sodium Potassium Chloride Carbon Dioxide Anion Gap BUN Creatinine Estim Creat Clear Calc Est GFR (MDRD) Af Amer Est GFR (MDRD) Non-Af BUN/Creatinine Ratio Glucose Calcium Troponin I High Sens < 3 L B-Natriuretic Peptide 619.5 H Radiography Diagnostic Testing: Clinical Impression(s) from Imaging Studies Chest X-Ray 11/05/21 13:09 IMPRESSION: Patchy bibasilar infiltrates worse at the left lung base. Electronically Signed: Gaurav Trent MD at 13:39 EDT Reading Location ID and State: [facility] / [place] , Service support , Discharge Plan Triage Chief Complaint: Shortness of Breath ED Provider: Brock Hairston Dx/Rx/DC Orders Prescriptions: No Action gabapentin 300 mg capsule 300 mg PO BID RF: 0 albuterol sulfate 90 mcg/actuation HFA aerosol inhaler 2 puff inhalation Q4H PRN (Reason: shortness of breath or wheezing) Qty: 1 RF: 6 diclofenac potassium 50 mg tablet 50 mg PO BID RF: 0 potassium chloride 20 mEq tablet extended release 20 meq PO DAILY Qty: 90 RF: 3 amiodarone 200 mg tablet 200 mg PO DAILY Qty: 90 RF: 3 ondansetron 4 mg tablet,disintegrating 4 mg PO Q6H RF: 0 zolpidem 10 mg tablet 10 mg PO QHS PRN (Reason: sleep) RF: 0 calcium citrate-vitamin D3 1 EACH tablet 1 ea PO DAILY RF: 0 acetaminophen 500 MG tablet 1,000 mg PO DAILY PRN PRN (Reason: Pain 1-10 Or Fever) RF: 0 multivitamin with minerals 1 EACH tablet 1 tab PO DAILY RF: 0 magnesium 30 MG tablet 30 mg PO DAILY RF: 0 coenzyme Q10 100 MG capsule 100 mg PO DAILY RF: 0 levothyroxine 25 MCG tablet 25 mcg PO DAILY RF: 0 Xtampza ER 13.5 mg cap,sprinkl,ER12hr(DONT CRUSH) 13.5 mg PO BID RF: 0 ondansetron 4 mg tablet,disintegrating 4 mg PO Q6H PRN (Reason: nausea and vomiting) Qty: 7 RF: 0 hydrocodone-acetaminophen 5-325 mg tablet 1 tab PO Q6H PRN (Reason: pain) 3 Days Qty: 10 RF: 0 hydromorphone [Dilaudid] 2 mg tablet 2 mg PO Q6H PRN (Reason: pain) 3 Days Qty: 10 RF: 0 ondansetron 4 mg tablet,disintegrating 4 mg PO Q8H PRN (Reason: nausea and vomiting) Qty: 10 RF: 0 rfoydszzkcl-ujlilgrsw-uvmczfqj 100-62.5-25 mcg blister with device 1 inh INHALATION DAILY Qty: 3 RF: 3 furosemide 40 mg tablet 40 mg PO DAILY RF: 0 warfarin 1 mg tablet 0.5 mg PO MOWE RF: 0 warfarin 1 mg tablet 1 mg PO RF: 0 atenolol 25 mg tablet 25 mg PO BID Qty: 60 RF: 11 diltiazem HCl 120 mg capsule,extended release 24hr 120 mg PO DAILY Qty: 30 RF: 3 Primary Care Provider: Tasneem Beck
[2021-11-05] MEDS: Furosemide 40 MG/4 ML Vial IV (16:22)
[2021-11-05 16:40] LABS: Troponin-I HS < 3 pg/mL (3.0-54.0)
[2021-11-05 17:16] VITALS: BP 142/87; PULSE 105; RESP 15; O2SAT 100
== END 2021-11-05 18:00 | disposition home or self-care (01) ==
PROVIDERS: Emergency Provider Student in an Organized Health Care Education/Training Program; PCP Internal Medicine; Visit Provider Student in an Organized Health Care Education/Training Program
DX: I48.0 Paroxysmal atrial fibrillation (principal); R06.00 Dyspnea, unspecified; I10 Essential (primary) hypertension; Z87.891 Personal history of nicotine dependence; Z86.711 Personal history of pulmonary embolism; Z79.01 Long term (current) use of anticoagulants; Z86.73 Personal history of transient ischemic attack (TIA), and cerebral infarction without residual deficits
CPT/HCPCS: 71045; 80048; 83880; 84484; 85025; 85610; 93005; 96374; 99284; A4216; J1940

== ENCOUNTER 2021-11-07 15:28 | Outpatient (CLI) | payer MEDICARE, SELFPAY ==
[2021-11-07 17:43] LABS: AST(SGOT) 17 U/L (15-37); Alanine Aminotransfer ALT/SGPT 30 U/L (13-56); Alkaline Phosphatase 84 U/L (45-117); Anion Gap 5 (5-15); BUN 51 mg/dL (7-18); BUN/Creat Ratio 33.1 RATIO (10-20); Bilirubin, Direct 0.12 mg/dL (0.00-0.30); Calcium,Total 9.6 mg/dL (8.5-10.1); Chloride 102 mmol/L (98-107); Cholesterol 191 mg/dL (200); Creatinine, Serum 1.54 mg/dL (0.55-1.02); EST Glomerular Filtration Rate 35 mL/min (>60); Est Glom Filt Rate - Afr Amer 42 mL/min (>60); Globulin 3.8 g/dL (2.2-4.2); Glucose 84 mg/dL (74-106); High Density Lipoprotein 64 mg/dL; Potassium 3.7 mmol/L (3.5-5.1); Protein, Total 6.8 g/dL (6.4-8.2); Sodium Level 139 mmol/L (136-145); Triglycerides 79 mg/dL; Very Low Density Lipoprotein 16 mg/dL (5-40)
== END 2021-11-07 23:59 | disposition home or self-care (01) ==
LOC: LAB 15:29
PROVIDERS: PCP Internal Medicine; Visit Provider Internal Medicine Cardiovascular Disease
DX: I11.0 Hypertensive heart disease with heart failure (principal); I50.9 Heart failure, unspecified; I48.0 Paroxysmal atrial fibrillation; R06.09 Other forms of dyspnea; I35.1 Nonrheumatic aortic (valve) insufficiency; E78.5 Hyperlipidemia, unspecified; R60.9 Edema, unspecified
CPT/HCPCS: 36415; 80048; 80061; 80076

== ENCOUNTER → 2021-11-19 | Outpatient (CLI) | payer MEDICARE, SELFPAY ==
[2021-11-19 13:46] LABS: INR Fingerstick 2.2; Prothrombin Time Fingerstick 25.3 SEC (11.7-14.9)
== END | disposition home or self-care (01) ==
LOC: LAB 13:33
PROVIDERS: PCP Internal Medicine; Visit Provider Internal Medicine Cardiovascular Disease
DX: I48.0 Paroxysmal atrial fibrillation (principal); Z79.01 Long term (current) use of anticoagulants
CPT/HCPCS: 36416; 85610

== ENCOUNTER → 2021-11-22 | Outpatient (CLI) | payer MEDICARE, SELFPAY ==
--- NOTE | 2021-11-22 09:46 | ECHOD_ITS ---
Reason For Study: CHF Procedure This was a 2D Doppler, Color Flow transthoracic echocardiogram. The exam was of adequate technical quality. Exam performed in department. Left Ventricle Normal LV size. Left ventricular systolic function is normal. The estimated ejection fraction is 65 %. No regional wall motion abnormalities noted. Right Ventricle Normal RV size. Normal systolic function. Atria The left atrium is moderately enlarged. Normal right atrium. No doppler evidence for ASD. Mitral Valve There is moderate mitral annular calcification. Extension of the mitral annular calcification onto the base of the posterior mitral valve leaflet. Mild-Moderate (1-2+) mitral valve insufficiency. Tricuspid Valve Normal tricuspid valve. Moderate (2+) tricuspid valve insufficiency. Right ventricular systolic pressure estimated to be 72 mmHg. Severe pulmonary hypertension. Aortic Valve Trisinus/trileaflet aortic valve. Normal aortic valve. Trivial aortic valve insufficiency. Pulmonic Valve The pulmonic valve is not well visualized. Mild (1+) pulmonic valve insufficiency. Great Vessels Normal sized aortic root. Calcified aortic root. Pericardium/Pleural No pericardial effusion. MMode/2D Measurements & Calculations LVIDd: 5.0 cm IVSd: 0.93 cm Ao root diam: 3.3 cm LVIDs: 2.6 cm LVPWd: 0.92 cm RVDd: 4.1 cm FS: 48.8 % LAV(MOD-sp4): 66.3 ml LVAd ap4: 22.0 cm2 LVAd ap2: 17.8 cm2 LVLd ap4: 6.2 cm LVLd ap2: 5.7 cm EDV(MOD-sp4): 62.2 ml EDV(MOD-sp2): 46.3 ml EDV(sp4-el): 66.0 ml EDV(sp2-el): 47.2 ml LVAs ap4: 8.7 cm2 LVAs ap2: 8.3 cm2 LVLs ap4: 4.0 cm LVLs ap2: 4.1 cm ESV(MOD-sp4): 16.5 ml ESV(MOD-sp2): 15.3 ml ESV(sp4-el): 16.3 ml ESV(sp2-el): 14.1 ml EF(MOD-sp4): 73.5 % EF(MOD-sp2): 67.0 % EF(sp4-el): 75.2 % SV(MOD-sp4): 45.7 ml SV(MOD-sp2): 31.0 ml SV(sp4-el): 49.6 ml LA dimension(2D): 3.9 cm LA A4 area: 21.5 cm2 RA A4 area: 18.4 cm2 Doppler Measurements & Calculations MV E max curtis: 137.0 cm/sec Lat Peak E' Curtis: 9.5 cm/sec Med Peak E' Curtis: 7.6 cm/sec MV A max curtis: 67.4 cm/sec E/E' lat: 14.4 E/E' med: 18.0 MV E/A: 2.0 Ao V2 max: 152.5 cm/sec LV V1 max: 135.2 cm/sec PA V2 max: 104.0 cm/sec Ao max P.3 mmHg LV V1 max P.3 mmHg TR max curtis: 415.3 cm/sec TR max P.1 mmHg ECHO/Echo Complete Interpretation Summary Left ventricular systolic function is normal. The estimated ejection fraction is 65 %. The left atrium is moderately enlarged. Normal right atrium. There is moderate mitral annular calcification. Extension of the mitral annular calcification onto the base of the posterior mi tral valve leaflet. Mild-Moderate (1-2+) mitral valve insufficiency. Moderate (2+) tricuspid valve insufficiency. Trivial aortic valve insufficiency. Mild (1+) pulmonic valve insufficiency. Calcified aortic root. Right ventricular systolic pressure estimated to be 72 mmHg. Severe pulmonary hypertension. Transmitral diastolic flow velocities suggest diastolic dysfunction (pseudonorm al pattern). Ordering Physician: Yovani Ko Referring Physician: Yovani Ko Performed By: Cici Alvarado RCS
== END | disposition home or self-care (01) ==
LOC: CVS 09:45
PROVIDERS: PCP Internal Medicine; Referring Provider Internal Medicine Cardiovascular Disease; Visit Provider Internal Medicine Cardiovascular Disease
DX: I36.1 Nonrheumatic tricuspid (valve) insufficiency (principal); I50.9 Heart failure, unspecified; R60.9 Edema, unspecified
CPT/HCPCS: 93306

== ENCOUNTER → 2021-11-26 | Outpatient (CLI) | payer MEDICARE, SELFPAY ==
[2021-11-26 13:53] LABS: International Normalized Ratio 1.7; Prothrombin Time (Protime)PT. 19.6 SECONDS (11.7-14.9)
[2021-11-26 14:09] LABS: Anion Gap 7 (5-15); BUN 68 mg/dL (7-18); BUN/Creat Ratio 33.2 RATIO (10-20); Calcium,Total 9.9 mg/dL (8.5-10.1); Chloride 98 mmol/L (98-107); Creatinine, Serum 2.05 mg/dL (0.55-1.02); EST Glomerular Filtration Rate 25 mL/min (>60); Est Glom Filt Rate - Afr Amer 30 mL/min (>60); Glucose 99 mg/dL (74-106); Potassium 3.6 mmol/L (3.5-5.1); Sodium Level 140 mmol/L (136-145)
== END | disposition home or self-care (01) ==
LOC: PAT 12-19 09:58
PROVIDERS: PCP Internal Medicine; Visit Provider Internal Medicine Cardiovascular Disease
DX: I48.19 Other persistent atrial fibrillation (principal)
CPT/HCPCS: 36415; 80048; 85610

== ENCOUNTER → 2021-12-05 | Outpatient (CLI) | payer MEDICARE, SELFPAY ==
--- NOTE | 2021-12-05 14:09 | PFTCOMP ---
COMPLETE PULMONARY FUNCTION TEST INTERPRETATION Brief HPI: Patient is a 76-year-old female, currently under the care of Dr. oK, who presents to [facility] for complete pulmonary function tests secondary to diagnosis of dyspnea. Respiratory therapist reports good effort and reproducible results. Interpretation: Forced expiration spirometry shows no large airways obstructive ventilatory defect with an FEV1 of 59% predicted. There is no significant bronchodilator response by strict ATS criteria. Spirograms are of good quality and plateau normally. The respiratory flow volume loop shows a normal pattern. Lung volumes by body plethysmography show a decreased total lung capacity at 3.37 L, 81% predicted. FRC and RV are elevated out of proportion. Lung volume measurements are consistent with air-trapping. Diffusion capacity by carbon monoxide is decreased at 35% predicted. The airway resistance is elevated. Compared to previous pulmonary function tests from 11/02/2020, there is been a significant reduction in DLCO by 24%. Impression: Irreversible moderately severe mixed ventilatory defect with a disproportionate reduction in diffusion capacity. There has been worsening compared to previous study.
== END | disposition home or self-care (01) ==
LOC: PSN 10:27
PROVIDERS: PCP Internal Medicine; Referring Provider Internal Medicine Cardiovascular Disease; Visit Provider Internal Medicine Cardiovascular Disease
DX: I27.20 Pulmonary hypertension, unspecified (principal); R06.02 Shortness of breath; Z79.899 Other long term (current) drug therapy
CPT/HCPCS: 94060; 94726; 94729

== ENCOUNTER 2021-12-10 12:12 | Outpatient (RCR) | payer MEDICARE, SELFPAY ==
[2021-12-03 11:40] LABS: INR Fingerstick 2.3; Prothrombin Time Fingerstick 26.9 SEC (11.7-14.9)
[2021-12-10 12:20] LABS: Prothrombin Time Fingerstick 34.1 SEC (11.7-14.9)
== END 2021-12-10 18:00 | disposition home or self-care (01) ==
LOC: LAB 12:12
PROVIDERS: PCP Internal Medicine; Referring Provider Internal Medicine Cardiovascular Disease; Visit Provider Internal Medicine Cardiovascular Disease
DX: I48.0 Paroxysmal atrial fibrillation (principal); Z79.01 Long term (current) use of anticoagulants
CPT/HCPCS: 36416; 85610

== ENCOUNTER 2021-12-13 16:56 | Emergency (ER) | payer MEDICARE, SELFPAY ==
[2021-12-13 16:57] VITALS: BP 149/65; PULSE 65; RESP 19; TEMP 36.9; O2SAT 97; BMI 27.9
--- NOTE | 2021-12-13 17:46 | EKG12_ITS ---
Test Reason : EDEMA Blood Pressure : / mmHG Vent. Rate : 059 BPM Atrial Rate : 059 BPM P-R Int : 144 ms QRS Dur : 086 ms QT Int : 442 ms P-R-T Axes : 016 -17 010 degrees QTc Int : 437 ms Sinus bradycardia Low voltage QRS Borderline ECG Confirmed by JESSIKA HAGEN, RAMY ([id number]), film or videotape editor OTILIA CARVALHO ([id number]) on 12/17/2021 9:56:56 AM Referred By: Confirmed By:JONY ROSEN MD
--- NOTE | 2021-12-13 17:49 | EX.ED.DYSGE1 ---
HPI <DONALD Anderson - Last Filed: 12/13/21 19:06> History of Present Illness Chief Complaint: Edema Narrative Narrative: 76-year-old female with history of COPD, congestive heart failure, atrial fibrillation on Coumadin, history of TIA presents to the emergency department with multiple weeks of lower leg edema. Patient is on the max dose of Lasix daily, patient was seen by her primary care office by her BACTERIOLOGIST [facility], she was told to go to the emergency department secondary to elevated BNP as well as lower extremity swelling. Patient states to have pain all over however this is chronic. She denies any shortness of breath. States that her feet are extremely painful. Patient denies missing a dose of Lasix. She denies any fevers or chills. Patient does have some redness to the left lower extremity however states this is chronic for several weeks. PFSH <DONALD Anderson - Last Filed: 12/13/21 19:06> [facility] Medical History (Updated 12/13/21 @ 18:50 by DONALD Anderson) Bronchitis Carotid bruit CHF (congestive heart failure) Edema Essential hypertension GERD (gastroesophageal reflux disease) Hyperlipidemia roasterman current use of amiodarone Nonrheumatic aortic (valve) insufficiency Nonrheumatic tricuspid valve regurgitation Osteoarthritis Paroxysmal atrial fibrillation Persistent atrial fibrillation Pneumonia PUD (peptic ulcer disease) Pulmonary hypertension Small bowel obstruction SOB (shortness of breath) on exertion TIA (transient ischemic attack) Home Medications calcium citrate-vitamin D3 1 ea PO DAILY 08/12/14 [History Last Taken 09/25/20] zolpidem 10 mg tablet 10 mg PO QHS PRN tab 03/13/18 [History Last Taken 09/24/20] albuterol sulfate 90 mcg/actuation aerosol inhaler 2 puff INHALATION Q4H PRN #1 device 08/19/19 [Rx Last Taken 1 Week Ago ~09/18/20] diclofenac potassium 50 mg tablet 50 mg PO BID 09/15/20 [History Last Taken 09/25/20] gabapentin 300 mg capsule 300 mg PO BID cap 09/15/20 [History Last Taken 09/24/20] acetaminophen 1,000 mg PO DAILY PRN PRN 09/25/20 [History Last Taken 09/22/20] coenzyme Q10 100 mg PO DAILY 09/25/20 [History Last Taken 09/25/20] levothyroxine 25 mcg PO DAILY 09/25/20 [History Last Taken 09/25/20] magnesium 30 mg PO DAILY 09/25/20 [History Last Taken 09/24/20] multivitamin with minerals 1 tab PO DAILY 09/25/20 [History Last Taken 09/25/20] fluticasone fur. 100 mcg-umeclid 62.5 mcg-vilant 25 mcg inhalat.powder 1 inh INHALATION DAILY #3 each 02/14/21 [Rx Last Taken Unknown] warfarin 1 mg tablet 0.5 mg PO MOWEFR 10/19/21 [History Last Taken Unknown] warfarin 1 mg tablet 1 mg PO SUTUTHSA 10/19/21 [History Last Taken Unknown] atenolol 25 mg tablet 25 mg PO BID #60 tab 10/22/21 [Rx Last Taken Unknown] diltiazem HCl 120 mg capsule,extended release 24 hr 120 mg PO BID #60 cap 11/06/21 [Rx Last Taken Unknown] furosemide 40 mg tablet 40 mg PO BID #60 tab 11/06/21 [Rx Last Taken Unknown] potassium chloride 20 mEq tablet,extended release 20 meq PO BID #90 tab 11/06/21 [Rx Last Taken Unknown] metolazone 5 mg tablet 5 mg PO DAILY #30 tab 12/04/21 [Rx Last Taken Unknown] amiodarone 200 mg tablet 100 mg PO DAILY #90 tab 12/06/21 [Rx Last Taken Unknown] amoxicillin-pot clavulanate tab 12/13/21 [History Last Taken Unknown] hydrocodone-acetaminophen 12/13/21 [History Last Taken Unknown] penicillin V potassium 12/13/21 [History Last Taken Unknown] Allergy/AdvReac Type Severity Reaction Status Date / Time cortisone Allergy a.fib Verified 12/13/21 16:59 hydrocodone [From Vicodin] AdvReac Severe Vomiting Verified 12/13/21 16:59 Hkrqkiq-LWS-XmO Reductase AdvReac Severe Myalgias Verified 12/13/21 16:59 Inhibitor [Aclogov-Jsx-Jtv Reductase Inhibitor] adhesive AdvReac Rash if on Verified 12/13/21 16:59 for extended period of time Family History Father CVA (cerebral vascular accident) Mother CVA (cerebral vascular accident) Sister CAD (coronary artery disease) Atrial fibrillation Sister COPD (chronic obstructive pulmonary disease) Surgical History H/O left wrist surgery History of back surgery History of left hip replacement History of right hip replacement History of rotator cuff surgery S/P foot surgery, right Social History pets and animals: Yes pets and animals: dog(s) Smoking Status: Former smoker Tobacco: How many years used: 36 how long ago did patient quit smokin alcohol intake: current alcohol intake frequency: a few times a week Alcohol type: beer details: rare substance use type: does not use ROS <DONALD Anderson - Last Filed: 12/13/21 19:06> ROS ED ROS Narrative Constitutional: Negative for fever, chills, weight loss. Positive for weakness Eyes: Negative for vision loss, vision change, double vision ENT: Negative for any sore throat, ear pain, congestion Cardiovascular: Negative for any palpitations, racing heartbeat. Positive for chest pain, chest tightness Respiratory: Negative for any cough, sputum production, hemoptysis, shortness of breath, shortness of breath on exertion, orthopnea Gastrointestinal: Negative for any abdominal pain, nausea, vomiting, diarrhea, constipation, blood in stool, blood in vomit : Negative for any urinary frequency, incontinence, dysuria, retention, blood in urine Muscle skeletal: Negative for any muscle joint pain, stiffness, myalgias, arthralgias, neck pain, back pain. Positive bilateral lower extremity pain Neurological: Negative for any headache, dizziness, syncope, numbness or tingling Skin: Negative for any rashes, lumps, itching, abrasions, lacerations Psychiatric: Negative for any depression, anxiety, stress, suicidal ideation, homicidal ideation Hematologic: Negative for any easy bruising, excessive bruising, easy bleeding Allergies: Negative for any eczema, hives, rash EXAM <DONALD Anderson - Last Filed: 12/13/21 19:06> Physical Exam Narrative Exam Narrative: Vital signs reviewed. HEET: Head normocephalic atraumatic, TMs clear bilaterally. Posterior pharynx is clear, moist mucous membranes. Nares clear bilaterally. Neck: Supple with no lymphadenopathy or tenderness. No signs of meningismus, negative jolt sign. Cardiac: Regular rate and rhythm 2/6 systolic murmur, no gallops or rubs, equal peripheral pulses bilaterally. Respiratory: Lungs clear crackles to bilateral lower lung bases. No chest tenderness. Abdomen: Soft, nontender, nondistended. No abdominal bruit or pulsatile masses. No hepatosplenomegaly Extremities: Positive for +2 pitting edema, both legs appear tight up to the knees.. Active full range of motion of all extremities. Neuro: Cranial nerves II through XII intact, no focal neurological deficits. Skin: Clean dry and intact with no rash, purpura, petechiae, vesicles or pustules. Backslash flank: No CVA tenderness, no midline spinal tenderness, no deformity. Psych: Normal mood and affect. No SI, HI or acute psychosis. Const Vital Signs: 12/13/21 16:57 12/13/21 17:03 12/13/21 18:01 Temperature 98.5 F Temperature Source Temporal Pulse Rate 65 Respiratory Rate 19 H Respiratory Effort Normal Respiratory Pattern Normal Blood Pressure 149/65 H Blood Pressure Mean 93 Pulse Ox 97 63 Oxygen Delivery Method Room Air Room Air Positive well nourished and well developed General Appearance ED: well developed <Dr. Trenton Gentile DO - Last Filed: 12/13/21 18:39> Physical Exam Const Vital Signs: 12/13/21 16:57 12/13/21 17:03 12/13/21 18:01 Temperature 98.5 F Temperature Source Temporal Pulse Rate 65 Respiratory Rate 19 H Respiratory Effort Normal Respiratory Pattern Normal Blood Pressure 149/65 H Blood Pressure Mean 93 Pulse Ox 97 63 Oxygen Delivery Method Room Air Room Air [facility] <DONALD Anderson - Last Filed: 12/13/21 19:06> [facility] Narrative Medical decision making narrative: Patient appears well, patient appears nontoxic, vital signs are stable. Patient presents to the emergency department with complaints of bilateral lower leg swelling that has been getting worse over the last several weeks. Patient was referred here by her PCP for bilateral lower leg swelling. Patient did receive basic laboratory values, patient slightly anemic with a hemoglobin of 9.9 hematocrit 32.5. Patient's chemistries show slight renal dysfunction with a creatinine of 2.1 with a BUN of 49. Patient's pro BNP was 248.2, this is much less then her numbers the end of 2020. Patient's troponin was negative. Patient's EKG was unremarkable. Patient received 40 mg of IV Lasix as well as 4 mg of IV morphine for her hip pain. She did well by elevating her legs. I do not believe that she is elevating her legs is much as she should secondary to hip pain. She also was instructed to wear her MARKY hose frequently and when at rest elevate her legs. Lung sounds were clear. I believe the patient is in any respiratory distress. Vital signs are stable. She will follow-up with her PCP regarding her bilateral lower leg swelling. Instructed return for any worsening symptoms. Lab Data Labs: Laboratory Results - last 24 hr 12/13/21 12/13/21 12/13/21 17:18 17:18 17:18 WBC 6.0 RBC 3.80 L Hgb 9.9 L Hct 32.5 L MCV 85.5 MCH 26.1 L MCHC 30.5 L RDW Std Deviation 45.4 H RDW Coeff of Nicki 14.7 H Plt Count 450 MPV 9.2 Immature Gran % (Auto) 0.300 Neut % (Auto) 59.8 Lymph % (Auto) 21.6 [place] % (Auto) 14.1 H Eos % (Auto) 3.5 Baso % (Auto) 0.7 Absolute Neuts (auto) 3.6 Absolute Lymphs (auto) 1.30 Nucleated RBC % 0 Sodium 139 Potassium 4.5 Chloride 101 Carbon Dioxide 29.0 Anion Gap 9 BUN 49 H Creatinine 2.12 H Estim Creat Clear Calc 17.57 Est GFR (MDRD) Af Amer 29 L Est GFR (MDRD) Non-Af 24 L BUN/Creatinine Ratio 23.1 H Glucose 102 Calcium 10.0 Troponin I High Sens < 3 L B-Natriuretic Peptide 248.2 H Radiography Diagnostic Testing: Clinical Impression(s) from Imaging Studies Chest X-Ray 12/13/21 18:05 IMPRESSION: There are no acute findings. Electronically Signed: Manpreet Martin MD at 18:27 EDT , <Dr. Trenton Gentile, DO - Last Filed: 12/13/21 18:39> [facility] MDM Narrative Medical decision making narrative: I have personally performed a face to face assessment of the patient and have reviewed the MERNA Note. I performed a substantive portion of the visit including all aspects of the following. My ponce findings include: History: Patient presents with increasing swelling in her lower extremities that has been getting worse over the past few days. Patient is on 80 mg of Lasix at home. Patient saw her primary care physician today and was referred to the emergency department. Patient denies any chest pain or shortness of breath. Patient denies any orthopnea or paroxysmal nocturnal dyspnea. Patient denies any fevers or chills. Patient states she was unable to put her compression hose back on after she took a shower today. Exam: Vital signs are stable. Patient is afebrile. Patient is in no acute distress. Oral mucosa is pink and moist. Neck is supple. Trachea is midline. There is no JVD. Heart was regular rate and rhythm. Lungs are clear and equal bilaterally. There are no rales noted. Abdomen is soft. Bowel sounds are normal. There is no tenderness. Extremities are intact. There is 2+ edema of the lower extremities. To the distal thigh. There is full range of motion. There is no calf tenderness. Medical Decison Making: CBC shows a mild anemia with a hemoglobin of 9.9 and hematocrit 32.5. Basic metabolic profile showed a BUN of 49 and creatinine of 2.12. These are consistent with prior results. High-sensitivity troponin was less than 3. Portable 1 view chest x-ray was obtained. On my interpretation, lung velasco are clear. There is normal cardiac silhouette. Bony thorax is normal. There is no acute process noted. Radiologist also interpreted the x-ray and agrees. Patient was given a dose of IV Lasix here. Patient is stable to be discharged home. Patient will follow-up with her primary care physician in 3 to 5 days. Patient understood and was agreeable with the plan. All questions were answered. Lab Data Labs: Laboratory Results - last 24 hr 12/13/21 12/13/21 12/13/21 17:18 17:18 17:18 WBC 6.0 RBC 3.80 L Hgb 9.9 L Hct 32.5 L MCV 85.5 MCH 26.1 L MCHC 30.5 L RDW Std Deviation 45.4 H RDW Coeff of Nicki 14.7 H Plt Count 450 MPV 9.2 Immature Gran % (Auto) 0.300 Neut % (Auto) 59.8 Lymph % (Auto) 21.6 [place]ima % (Auto) 14.1 H Eos % (Auto) 3.5 Baso % (Auto) 0.7 Absolute Neuts (auto) 3.6 Absolute Lymphs (auto) 1.30 Nucleated RBC % 0 Sodium 139 Potassium 4.5 Chloride 101 Carbon Dioxide 29.0 Anion Gap 9 BUN 49 H Creatinine 2.12 H Estim Creat Clear Calc 17.57 Est GFR (MDRD) Af Amer 29 L Est GFR (MDRD) Non-Af 24 L BUN/Creatinine Ratio 23.1 H Glucose 102 Calcium 10.0 Troponin I High Sens < 3 L B-Natriuretic Peptide 248.2 H Radiography Diagnostic Testing: Clinical Impression(s) from Imaging Studies Chest X-Ray 12/13/21 18:05 IMPRESSION: There are no acute findings. Electronically Signed: Manpreet Martin MD at 18:27 EDT Reading Location ID and State: [facility] / [place] , Service support , Discharge Plan Triage Chief Complaint: Edema ED Midlevel Provider: Yovani Li ED Provider: Trenton Gentile Dx/Rx/DC Orders Clinical Impression: Bilateral edema of lower extremity Instructions: ED Peripheral Edema, Bilateral Prescriptions: No Action gabapentin 300 mg capsule 300 mg PO BID RF: 0 albuterol sulfate 90 mcg/actuation HFA aerosol inhaler 2 puff inhalation Q4H PRN (Reason: shortness of breath or wheezing) Qty: 1 RF: 6 diclofenac potassium 50 mg tablet 50 mg PO BID RF: 0 zolpidem 10 mg tablet 10 mg PO QHS PRN (Reason: sleep) RF: 0 calcium citrate-vitamin D3 1 EACH tablet 1 ea PO DAILY RF: 0 acetaminophen 500 MG tablet 1,000 mg PO DAILY PRN PRN (Reason: Pain 1-10 Or Fever) RF: 0 multivitamin with minerals 1 EACH tablet 1 tab PO DAILY RF: 0 magnesium 30 MG tablet 30 mg PO DAILY RF: 0 coenzyme Q10 100 MG capsule 100 mg PO DAILY RF: 0 levothyroxine 25 MCG tablet 25 mcg PO DAILY RF: 0 penicillin V potassium 250 mg tablet RF: 0 hydrocodone-acetaminophen 5-325 mg tablet RF: 0 amoxicillin-pot clavulanate 875-125 mg tablet RF: 0 gzghckdxbow-iomjjimmq-fttrkvfy 100-62.5-25 mcg blister with device 1 inh INHALATION DAILY Qty: 3 RF: 3 warfarin 1 mg tablet 0.5 mg PO MOWEFR RF: 0 warfarin 1 mg tablet 1 mg PO SUTUTHSA RF: 0 atenolol 25 mg tablet 25 mg PO BID Qty: 60 RF: 11 diltiazem HCl 120 mg capsule,extended release 24hr 120 mg PO BID Qty: 60 RF: 11 furosemide 40 mg tablet 40 mg PO BID Qty: 60 RF: 11 potassium chloride 20 mEq tablet extended release 20 meq PO BID Qty: 90 RF: 3 metolazone 5 mg tablet 5 mg PO DAILY Qty: 30 RF: 12 amiodarone 200 mg tablet 100 mg PO DAILY Qty: 90 RF: 3 Primary Care Provider: Tasneem Beck Referrals: Tasneem Beck MD [Primary Care Provider] - Activity Restrictions/Additional Instructions: Continue to wear MARKY hose daily, when at rest your legs need to be elevated.
[2021-12-13] MEDS: Ondansetron 4 MG/2 ML Vial IV (17:56)
[2021-12-13] MEDS: Morphine 4 MG/ML Syringe IV (17:56)
[2021-12-13 17:58] LABS: Absolute Neutrophil Count 3.6 X10^3/uL (2.0-7.7); Basophil# 0.04 X10^3/uL; Basophil% 0.7 % (0-1); Eosinophil# 0.21 X10^3/uL; Eosinophils% 3.5 % (0-5); Hematocrit 32.5 % (37-47); Hemoglobin 9.9 g/dL (12.0-15.0); Lymphocyte % 21.6 % (19-41); Mean Corp Hgb Conc 30.5 g/dL (32-36); Mean Corpuscular Hgb 26.1 pg (27.0-32.0); Mean Corpuscular Volume 85.5 fL (81-99); Mean Platelet Vol. 9.2 fl (6.2-12.0); Monocyte# 0.85 X10^3/uL; Monocyte% 14.1 % (0-10); NRBC Flagged by Analyzer 0 % (0-5); Neutrophil # 3.59 X10^3/uL (2.7-7.7); Neutrophil % 59.8 % (47-70); Platelet Count 450 K/mm3 (150-450); RBC Distribution Width CV 14.7 % (11.6-14.6); RBC Distribution Width SD 45.4 fl (35.1-43.9)
[2021-12-13 18:01] VITALS: O2SAT 63
--- NOTE | 2021-12-13 18:05 | RAD_ITS ---
STUDY: X-RAY CHEST REASON FOR EXAM: Female, 76 years old. chest pain TECHNIQUE: XR Chest 1 View COMPARISON: 11/05/2021 FINDINGS: Total bilateral shoulder arthroplasties. Normal size heart. Normal mediastinum and fay. Normal visualized pulmonary arteries. There is atherosclerotic calcification of the aortic arch with tortuosity. There are diffuse degenerative changes of the visualized thoracic spine. There is degenerative osteoarthritis of the bilateral shoulders. There is no demonstrated abnormality of the visualized soft tissue structures of the upper abdomen. RAD/Chest 1 View (Portable) IMPRESSION: There are no acute findings. Electronically Signed: Manpreet Martin MD at 18:27 EDT ,
[2021-12-13 18:14] LABS: Anion Gap 9 (5-15); BUN 49 mg/dL (7-18); BUN/Creat Ratio 23.1 RATIO (10-20); Chloride 101 mmol/L (98-107); Creatinine, Serum 2.12 mg/dL (0.55-1.02); EST Glomerular Filtration Rate 24 mL/min (>60); Est Glom Filt Rate - Afr Amer 29 mL/min (>60); Estimated Creatinine Clearance 17.57 ml/min; Glucose 102 mg/dL (74-106); Potassium 4.5 mmol/L (3.5-5.1); Sodium Level 139 mmol/L (136-145); Troponin-I HS (w/2H Reflex) < 3 pg/mL (3.0-54.0)
[2021-12-13 18:37] LABS: BNP,B-Type NATRIURETIC PEPTIDE 248.2 pg/mL (0-100)
[2021-12-13] MEDS: Furosemide 40 MG/4 ML Vial IV (18:42)
[2021-12-13 19:01] VITALS: BP 152/67; PULSE 73; RESP 18; O2SAT 99
[2021-12-13 19:20] VITALS: BP 153/68; PULSE 67; RESP 18; O2SAT 93
[2021-12-13 19:52] LABS: Reflex Troponin-HS? (from REC) Y
== END 2021-12-13 19:22 | disposition home or self-care (01) ==
PROVIDERS: Nurse Practitioner; Emergency Provider Emergency Medicine; PCP Internal Medicine; Visit Provider Emergency Medicine
DX: R60.0 Localized edema (principal); I27.20 Pulmonary hypertension, unspecified; I11.0 Hypertensive heart disease with heart failure; I50.9 Heart failure, unspecified; I48.0 Paroxysmal atrial fibrillation; K21.9 Gastro-esophageal reflux disease without esophagitis; E78.5 Hyperlipidemia, unspecified; I35.1 Nonrheumatic aortic (valve) insufficiency; Z86.73 Personal history of transient ischemic attack (TIA), and cerebral infarction without residual deficits; Z87.11 Personal history of peptic ulcer disease; Z87.19 Personal history of other diseases of the digestive system; Z79.01 Long term (current) use of anticoagulants; Z79.899 Other long term (current) drug therapy; M19.90 Unspecified osteoarthritis, unspecified site; Z87.891 Personal history of nicotine dependence; R01.1 Cardiac murmur, unspecified
CPT/HCPCS: 71045; 80048; 83880; 84484; 85025; 93005; 96374; 96375; 99284; A4216; J1940; J2405

== ENCOUNTER → 2022-01-16 | Outpatient (CLI) | payer MEDICARE, SELFPAY ==
[2022-01-16 13:03] LABS: Anion Gap 6 (5-15); BUN 42 mg/dL (7-18); BUN/Creat Ratio 26.9 RATIO (10-20); Calcium,Total 9.4 mg/dL (8.5-10.1); Chloride 96 mmol/L (98-107); Creatinine, Serum 1.56 mg/dL (0.55-1.02); EST Glomerular Filtration Rate 34 mL/min (>60); Est Glom Filt Rate - Afr Amer 42 mL/min (>60); Glucose 107 mg/dL (74-106); Potassium 4.6 mmol/L (3.5-5.1); Sodium Level 132 mmol/L (136-145)
== END | disposition home or self-care (01) ==
LOC: LAB 11:46
PROVIDERS: PCP Internal Medicine; Visit Provider Internal Medicine Cardiovascular Disease
DX: I11.0 Hypertensive heart disease with heart failure (principal); I50.9 Heart failure, unspecified; I48.0 Paroxysmal atrial fibrillation; R06.09 Other forms of dyspnea; I35.1 Nonrheumatic aortic (valve) insufficiency; E78.5 Hyperlipidemia, unspecified
CPT/HCPCS: 36415; 80048

== ENCOUNTER → 2022-01-18 | Outpatient (CLI) | payer MEDICARE, SELFPAY ==
[2022-01-18 15:14] LABS: Absolute Lymphocyte Count 1.58 X10^3/uL (0.83-4.51); Absolute Neutrophil Count 2.8 X10^3/uL (2.0-7.7); Basophil# 0.01 X10^3/uL; Basophil% 0.2 % (0-1); Eosinophil# 0.16 X10^3/uL; Hematocrit 29.4 % (37-47); Hemoglobin 8.8 g/dL (12.0-15.0); Lymphocyte # 1.58 X10^3/ul (0.83-4.51); Lymphocyte % 29.6 % (19-41); Mean Corp Hgb Conc 29.9 g/dL (32-36); Mean Corpuscular Hgb 24.1 pg (27.0-32.0); Mean Corpuscular Volume 80.5 fL (81-99); Mean Platelet Vol. 9.4 fl (6.2-12.0); Monocyte# 0.73 X10^3/uL; Monocyte% 13.7 % (0-10); NRBC Flagged by Analyzer 0 % (0-5); Neutrophil # 2.84 X10^3/uL (2.7-7.7); Neutrophil % 53.1 % (47-70); Platelet Count 366 K/mm3 (150-450); RBC Distribution Width CV 16.2 % (11.6-14.6); RBC Distribution Width SD 47.8 fl (35.1-43.9); Red Blood Count 3.65 M/mm3 (4.2-5.4); White Blood Count 5.3 K/mm3 (4.4-11.0)
[2022-01-18 15:27] LABS: International Normalized Ratio 1.7; Prothrombin Time (Protime)PT. 19.8 SECONDS (11.7-14.9)
[2022-01-18 15:44] LABS: Anion Gap 9 (5-15); BUN 43 mg/dL (7-18); BUN/Creat Ratio 28.9 RATIO (10-20); Chloride 93 mmol/L (98-107); Creatinine, Serum 1.49 mg/dL (0.55-1.02); EST Glomerular Filtration Rate 36 mL/min (>60); Est Glom Filt Rate - Afr Amer 44 mL/min (>60); Glucose 133 mg/dL (74-106); Potassium 4.6 mmol/L (3.5-5.1); Sodium Level 132 mmol/L (136-145)
== END | disposition home or self-care (01) ==
LOC: LAB 13:42
PROVIDERS: PCP Internal Medicine; Visit Provider Orthopaedic Surgery
DX: Z01.818 Encounter for other preprocedural examination (principal); Z79.01 Long term (current) use of anticoagulants
CPT/HCPCS: 36415; 80048; 85025; 85610; 85730

== ENCOUNTER → 2022-01-24 | Outpatient (CLI) | payer MEDICARE, SELFPAY ==
[2022-01-24 11:34] LABS: International Normalized Ratio 1.7; Prothrombin Time (Protime)PT. 19.2 SECONDS (11.7-14.9)
== END | disposition home or self-care (01) ==
LOC: LABSPEC 10:58
PROVIDERS: PCP Internal Medicine; Visit Provider Internal Medicine
DX: I48.0 Paroxysmal atrial fibrillation (principal); Z79.899 Other long term (current) drug therapy
CPT/HCPCS: 85610

== ENCOUNTER 2022-03-08 06:43 | Observation (INO) | payer MEDICARE, SELFPAY ==
[2022-03-08] VITALS (19 sets, daily range): BP systolic 124–185; BP diastolic 55–100; PULSE 55–88; RESP 16–28; TEMP 36.2–38.7; O2SAT 50–97; BMI 27.9; BMI 25.8
--- NOTE | 2022-03-08 06:59 | ED.RN ---
ON ARRIVAL PT'S PULSE OX ON ROOM AIR WAS 85%,PLACED ON 4 L NC AND PT'S PULSE OX REMAINED IN THE LOW 80'S. PLACED ON 35% NON-REBREATHER WITH 8LITERS AND PULSE OX 85%. 0655 PLACED ON 50% 12 LITERS NON-REBREATHER.
--- NOTE | 2022-03-08 07:12 | ED.VIS.DYS ---
HPI History of Present Illness Chief Complaint: Shortness of Breath Informant: patient Onset/Context/Timing Onset: Days Context: gradual Timing: Continuous Quality: Positive for Dyspnea on exertion Worsened by: Exertion Relieved by: Nothing Associated Symptoms cough, fever and subjective; Negative for rhinorrhea, post nasal drip, ear pain, sore throat, clear sputum, white sputum, yellow sputum or green sputum Chest Pain: Positive for Continuous and Sharp Narrative Narrative: Patient presents with shortness of breath that has been getting progressively worse over the past few days. Patient states it is constant. Patient states it is worse with any activity. Patient admits to a cough but denies any sputum. Patient admits to subjective fevers at home. Patient also admits to some pain in her chest. Patient had a recent spinal stimulator placed. Patient states she was having some shortness of breath while she was in the hospital after this was placed. PE Risk Factors: Positive for Recent surgery; Negative for Cancer, OCP + Smoking + > 35, Prior DVT or PE, Recent immobilization or Recent travel 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 Nonrheumatic aortic (valve) insufficiency Nonrheumatic tricuspid valve regurgitation Osteoarthritis Paroxysmal atrial fibrillation Persistent atrial fibrillation Pneumonia PUD (peptic ulcer disease) Pulmonary hypertension Small bowel obstruction SOB (shortness of breath) on exertion Spinal cord stimulator status TIA (transient ischemic attack) Home Medications calcium citrate 200 mg calcium-vitamin D3 6.25 mcg (250 unit) tablet 1 ea PO DAILY SUPPLEMENT 08/12/14 [History Last Taken 09/25/20] zolpidem 10 mg tablet 10 mg PO QHS PRN sleep 03/13/18 [History Last Taken 09/24/20] albuterol sulfate 90 mcg/actuation aerosol inhaler 2 puff inhalation Q4H PRN shortness of breath or wheezing #1 device 08/19/19 [Rx Last Taken 1 Week Ago ~09/18/20] diclofenac potassium 50 mg tablet 50 mg PO BID PAIN 09/15/20 [History Last Taken 09/25/20] gabapentin 300 mg capsule 300 mg PO BID 09/15/20 [History Last Taken 09/24/20] acetaminophen 500 mg tablet 1,000 mg PO DAILY PRN PRN Pain 1-10 Or Fever 09/25/20 [History Last Taken 09/22/20] coenzyme Q10 100 mg capsule 100 mg PO DAILY SUPPLEMENT 09/25/20 [History Last Taken 09/25/20] levothyroxine 25 mcg tablet 25 mcg PO DAILY THYROID 09/25/20 [History Last Taken 09/25/20] magnesium 30 mg tablet 30 mg PO DAILY SUPPLEMENT 09/25/20 [History Last Taken 09/24/20] multivitamin with minerals 1 tab PO DAILY SUPPLEMETN 09/25/20 [History Last Taken 09/25/20] fluticasone fur. 100 mcg-umeclid 62.5 mcg-vilant 25 mcg inhalat.powder 1 inh inhalation DAILY SOB #3 ea 02/14/21 [Rx Last Taken Unknown] warfarin 1 mg tablet 0.5 mg PO MOWEFR BLOOD THINNER 10/19/21 [History Last Taken Unknown] warfarin 1 mg tablet 1 mg PO SUTUTHSA 10/19/21 [History Last Taken Unknown] atenolol 25 mg tablet 25 mg PO BID HEART #60 tabs 10/22/21 [Rx Last Taken Unknown] furosemide 40 mg tablet 40 mg PO BID Swelling #60 tabs 11/06/21 [Rx Last Taken Unknown] potassium chloride 20 mEq tablet,extended release 20 meq PO BID #90 tabs 11/06/21 [Rx Last Taken Unknown] amiodarone 200 mg tablet 100 mg PO DAILY HEART #90 tabs 12/06/21 [Rx Last Taken Unknown] diltiazem HCl 120 mg capsule,extended release 24 hr 120 mg PO DAILY #60 caps 12/14/21 [Rx Last Taken Unknown] Allergy/AdvReac Type Severity Reaction Status Date / Time cortisone Allergy a.fib Verified 03/08/22 07:14 hydrocodone [From Vicodin] AdvReac Severe Vomiting Verified 03/08/22 07:14 Teyandi-JFD-TgJ Reductase AdvReac Severe Myalgias Verified 03/08/22 07:14 Inhibitor [Ecfiwhn-Gck-Rfu Reductase Inhibitor] adhesive AdvReac Rash if on Verified 03/08/22 07:14 for extended period of time Family History Father CVA (cerebral vascular accident) Mother CVA (cerebral vascular accident) Sister CAD (coronary artery disease) Atrial fibrillation Sister COPD (chronic obstructive pulmonary disease) Surgical History H/O left wrist surgery History of back surgery History of left hip replacement History of right hip replacement History of rotator cuff surgery S/P foot surgery, right Social History pets and animals: Yes pets and animals: dog(s) Smoking Status: Former smoker Tobacco: How many years used: 36 how long ago did patient quit smokin alcohol intake: current alcohol intake frequency: a few times a week Alcohol type: beer details: rare substance use type: does not use ROS ROS ED Constitutional Constitutional ED: Reports fever(s); Denies chills Eyes Eyes: Denies blurry vision or change in vision ENT ENT ED: Denies rhinorrhea or sore throat Cardiovascular Cardiovascular: Reports chest pain; Denies palpitations Respiratory/Chest Respiratory/Chest: Reports cough and dyspnea Gastrointestinal Gastrointestinal: Denies nausea or vomiting Genitourinary Genitourinary ED: Denies dysuria or hematuria Musculoskeletal Musculoskeletal: Reports back pain and neck pain Integumentary Denies abscess or rash Neurologic Neurologic: Reports headache(s); Denies weakness Allergic/Immunologic Allergic/Immunologic ED: Denies mouth swelling or urticaria EXAM Physical Exam Const Vital Signs: 03/08/22 06:43 03/08/22 06:58 03/08/22 07:07 Temperature 99.4 F H 100.7 F H Temperature Source Oral Temporal Pulse Rate 86 80 Respiratory Rate 22 H 26 H Respiratory Effort Short of Breath Blood Pressure 185/70 H 185/70 H Blood Pressure Mean 108 108 Pulse Ox 92 94 Oxygen Delivery Method Nasal Cannula Non-Rebreather Venturi Mask Oxygen Flow Rate (L/min) 4 12 12 Fraction of Inspired Oxygen (FIO2) 50 03/08/22 07:07 03/08/22 08:23 03/08/22 07:41 Temperature 100.7 F H 101.6 F H Temperature Source Temporal Oral Pulse Rate 80 83 79 Respiratory Rate 26 H 18 28 H Respiratory Effort Blood Pressure 185/70 H 163/59 H Blood Pressure Mean 108 93 Pulse Ox 94 94 Oxygen Delivery Method Venturi Mask Non-Rebreather Oxygen Flow Rate (L/min) 12 15 Fraction of Inspired Oxygen (FIO2) 50 03/08/22 07:41 Temperature Temperature Source Pulse Rate Respiratory Rate Respiratory Effort Blood Pressure Blood Pressure Mean Pulse Ox 90 Oxygen Delivery Method Venturi Mask Oxygen Flow Rate (L/min) 12 Fraction of Inspired Oxygen (FIO2) 50 Positive well nourished and well developed General Appearance ED: well developed and NAD HEENT Reports moist mucous membranes Neck supple and no JVD Resp normal respiratory effort Auscultation: diminished lung sounds Cardio regular rate and regular rhythm Heart Sounds: murmur systolic II/ holo GI normal to inspection, nondistended, normoactive bowel sounds and non-tender Palpation: soft Neuro oriented x3, CN's II-XII intact bilaterally and no sensory deficits noted Sensorium / Orientation: alert Motor Exam: strength 5/5 throughout Psych mental status grossly normal Skin no rashes or lesions noted MDM MDM MDM Narrative Medical decision making narrative: EKG was obtained. On my interpretation, it showed a normal sinus rhythm with a rate of 80. NV interval, QRS interval, and QTc intervals were all normal. [place] was normal. There are no acute ST or T wave changes. CBC shows normal white blood cell count. Hemoglobin was 10.5 and hematocrit was 34.3. Comprehensive metabolic profile was essentially within normal limits. PT was INR and PTT were within normal limits. Lactate was normal. BNP was slightly elevated at 631.7. This is consistent with prior results. Urinalysis does not show any evidence of urinary tract infection or hematuria. CTA of the chest was obtained. There is no evidence of pulmonary embolism. There are bilateral pleural effusions and bibasilar atelectasis. This was interpreted by the radiologist and reviewed by myself. Arterial blood gas was obtained while patient was on nonrebreather mask. pH was 7.435, PCO2 was 40.8, PO2 was 147.1, bicarb was 27.4, and oxygen saturation was 99.3%. Blood cultures were obtained. Since the patient has having a cough and fever, we will cover the patient for pneumonia. Patient was given Rocephin and Zithromax here. Case was discussed with the hospitalist. She will admit the patient to her service. Patient understood and was agreeable with the plan. All questions were answered. Lab Data Attestation: I reviewed the patient's lab results. Labs: Laboratory Results - last 24 hr 03/08/22 03/08/22 03/08/22 07:10 07:10 07:10 WBC 9.5 RBC 3.91 L Hgb 10.5 L Hct 34.3 L MCV 87.7 MCH 26.9 L MCHC 30.6 L RDW Std Deviation 72.9 H RDW Coeff of Nicki 23.1 H Plt Count 214 MPV 9.4 Immature Gran % (Auto) 0.500 Neut % (Auto) 71.9 H Lymph % (Auto) 15.7 L [place] % (Auto) 11.7 H Eos % (Auto) 0.1 Baso % (Auto) 0.1 Absolute Neuts (auto) 6.8 Absolute Lymphs (auto) 1.49 Nucleated RBC % 0 Platelet Estimate ADEQUATE RBC Morphology N CHROM Anisocytosis 1+ PT 14.0 INR 1.1 APTT 26.5 Sodium 140 Potassium 3.6 Chloride 104 Carbon Dioxide 32.0 Anion Gap 4 L BUN 23 H Creatinine 0.90 Estim Creat Clear Calc 43.37 Est GFR (MDRD) Af Amer 79 Est GFR (MDRD) Non-Af 65 BUN/Creatinine Ratio 25.6 H Glucose 95 Lactic Acid Calcium 9.2 Total Bilirubin 0.70 AST 19 ALT 18 Alkaline Phosphatase 64 Troponin I High Sens 12 B-Natriuretic Peptide Total Protein 6.7 Albumin 3.3 Globulin 3.4 Albumin/Globulin Ratio 1.0 Urine Color Urine Clarity Urine pH Ur Specific [place] Urine Protein Urine Glucose (UA) Urine Ketones Urine Occult Blood Urine Nitrite Urine Bilirubin Urine Urobilinogen Ur Leukocyte Esterase Urine RBC Urine WBC Ur Squamous Epith Cells Urine Bacteria Urine Mucus 03/08/22 03/08/22 03/08/22 07:10 07:10 07:35 WBC RBC Hgb Hct MCV MCH MCHC RDW Std Deviation RDW Coeff of Nicki Plt Count MPV Immature Gran % (Auto) Neut % (Auto) Lymph % (Auto) [place] % (Auto) Eos % (Auto) Baso % (Auto) Absolute Neuts (auto) Absolute Lymphs (auto) Nucleated RBC % Platelet Estimate RBC Morphology Anisocytosis PT INR APTT Sodium Potassium Chloride Carbon Dioxide Anion Gap BUN Creatinine Estim Creat Clear Calc Est GFR (MDRD) Af Amer Est GFR (MDRD) Non-Af BUN/Creatinine Ratio Glucose Lactic Acid 0.7 Calcium Total Bilirubin AST ALT Alkaline Phosphatase Troponin I High Sens B-Natriuretic Peptide 631.7 H Total Protein Albumin Globulin Albumin/Globulin Ratio Urine Color Yellow Urine Clarity Clear Urine pH 5.0 Ur Specific [place] 1.015 Urine Protein Negative Urine Glucose (UA) Normal Urine Ketones Negative Urine Occult Blood Negative Urine Nitrite Negative Urine Bilirubin Negative Urine Urobilinogen Normal Ur Leukocyte Esterase Negative Urine RBC 0 SEEN Urine WBC 0 SEEN Ur Squamous Epith Cells 0 SEEN Urine Bacteria 0 SEEN Urine Mucus 0 SEEN ABG Data ABG results: ABG 03/08/22 08:48 Specimen Type ART Sample Site L Radial pH 7.44 Bicarbonate Actual 27.4 H Total CO2 29 Base Excess 3 H O2 Saturation 99 O2 % 100 ABG pCO2 40.8 ABG pO2 147 H Wes Test Positive O2 Delivery Device NRB Radiography Diagnostic Testing: Clinical Impression(s) from Imaging Studies Chest CTA 03/08/22 07:21 IMPRESSION: Normal CTA chest examination, without a demonstrated pulmonary embolism or arterial dissection. Electronically Signed: Robert Ruiz MD at 8:47 EDT , EKG Initial EKG: Attestation: I personally reviewed and interpreted this EKG as follows: Interpretation: Sinus Rhythm (80) and No Acute Injury Pattern Prior EKG tracings: available for review Prior: Unchanged (12/13/2021) Discharge Plan Triage Chief Complaint: Shortness of Breath ED Provider: Trenton Gentile Dx/Rx/DC Orders Clinical Impression: Hypoxia, Pneumonia, Status post insertion of spinal cord stimulator Prescriptions: No Action gabapentin 300 mg capsule 300 mg PO BID albuterol sulfate 90 mcg/actuation HFA aerosol inhaler 2 puff inhalation Q4H PRN (Reason: shortness of breath or wheezing) Qty: 1 6RF Rx Instructions: administer with spacer diclofenac potassium 50 mg tablet 50 mg PO BID zolpidem 10 mg tablet 10 mg PO QHS PRN (Reason: sleep) Label Comments: SLEEPING PILL calcium citrate-vitamin D3 1 EACH tablet 1 ea PO DAILY Label Comments: supplement acetaminophen 500 MG tablet 1,000 mg PO DAILY PRN PRN (Reason: Pain 1-10 Or Fever) multivitamin with minerals 1 EACH tablet 1 tab PO DAILY magnesium 30 MG tablet 30 mg PO DAILY coenzyme Q10 100 MG capsule 100 mg PO DAILY levothyroxine 25 MCG tablet 25 mcg PO DAILY ecxslzwkwce-xwofghpci-envzkthq 100-62.5-25 mcg blister with device 1 inh INHALATION DAILY Qty: 3 3RF warfarin 1 mg tablet 0.5 mg PO Protocol: Dose Management Condition: Friday Dose/Route: 1 mg Instruction: 1 x 1 mg tablet Condition: Friday Dose/Route: 1 mg Instruction: 1 x 1 mg tablet Condition: Friday Dose/Route: 1 mg Instruction: 1 x 1 mg tablet Condition: Friday Dose/Route: 1 mg Instruction: 1 x 1 mg tablet Condition: Dose/Route: 0 mg Instruction: 0 tablets Condition: Friday Dose/Route: 1 mg Instruction: 1 x 1 mg tablet Condition: Friday Dose/Route: 1 mg Instruction: 1 x 1 mg tablet Protocol Text: Adjustment Start Date: Friday02/15/22 INR Value: 1.5 INR Date: 02/15/22 Recheck Date: 03/12/22 Rx Instructions: Managed by Dr. Beck warfarin 1 mg tablet 1 mg PO [facility] Protocol: Dose Management Condition: Friday Dose/Route: 1 mg Instruction: 1 x 1 mg tablet Condition: Friday Dose/Route: 1 mg Instruction: 1 x 1 mg tablet Condition: Friday Dose/Route: 1 mg Instruction: 1 x 1 mg tablet Condition: Friday Dose/Route: 1 mg Instruction: 1 x 1 mg tablet Condition: Dose/Route: 0 mg Instruction: 0 tablets Condition: Friday Dose/Route: 1 mg Instruction: 1 x 1 mg tablet Condition: Friday Dose/Route: 1 mg Instruction: 1 x 1 mg tablet Protocol Text: Adjustment Start Date: Friday02/15/22 INR Value: 1.5 INR Date: 02/15/22 Recheck Date: 03/12/22 Rx Instructions: Managed by Dr. Beck atenolol 25 mg tablet 25 mg PO BID Qty: 60 11RF furosemide 40 mg tablet 40 mg PO BID Qty: 60 11RF potassium chloride 20 mEq tablet extended release 20 meq PO BID Qty: 90 3RF amiodarone 200 mg tablet 100 mg PO DAILY Qty: 90 3RF diltiazem HCl 120 mg capsule,extended release 24hr 120 mg PO DAILY Qty: 60 11RF Primary Care Provider: Tasneem Beck Referrals: Tasneem Beck MD [Primary Care Provider] - Disposition Disposition: Acute Care Hospital [facility]
--- NOTE | 2022-03-08 07:19 | EKG12_ITS ---
Test Reason : sob Blood Pressure : / mmHG Vent. Rate : 080 BPM Atrial Rate : 080 BPM P-R Int : 140 ms QRS Dur : 082 ms QT Int : 382 ms P-R-T Axes : 049 047 032 degrees QTc Int : 440 ms Normal sinus rhythm Normal ECG Confirmed by MADELINE HAGEN, PAM ([id number]), communications editor OTILIA CARVALHO ([id number]) on 03/09/2022 7:27:46 AM Referred By: Krupa Confirmed By:PAM CORREA MD
--- NOTE | 2022-03-08 07:21 | CT_ITS ---
STUDY: CTA CHEST REASON FOR EXAM: Female, 76 years old. PE RADIATION DOSAGE (If Supplied By Facility): CTDIvol = ( 13.92 ) mGy, DLP = ( 389.52 ) mGycm TECHNIQUE: The examination was performed with the intravenous administration of IV 75mL Isovue-370. Post-processing of the angiographic images was performed, with multiplanar reformation and 3D reconstruction. Individualized dose optimization techniques were used for this CT. COMPARISON: None. FINDINGS: Normal enhancement of the main pulmonary artery and right and left pulmonary arteries. Normal enhancement of the bilateral peripheral pulmonary arteries. There is no demonstrated pulmonary embolism. Normal thoracic aorta and visualized great vessels. There is no demonstrated aortic dissection. Normal heart and pericardium. Normal mediastinum. Normal hilar regions. Normal visualized trachea and bronchi. The lungs are well expanded. Mild bilateral apical scarring. Small bilateral pleural effusions with bibasilar atelectasis. Normal chest wall structures. Status post bilateral shoulder reverse arthroplasty. Normal visualized upper abdomen. CT/CTA Chest W/WO Contrast IMPRESSION: Normal CTA chest examination, without a demonstrated pulmonary embolism or arterial dissection. Electronically Signed: Robert Ruiz MD at 8:47 EDT ,
[2022-03-08 07:32] LABS: Absolute Lymphocyte Count 1.49 X10^3/uL (0.83-4.51); Absolute Neutrophil Count 6.8 X10^3/uL (2.0-7.7); Basophil# 0.01 X10^3/uL; Basophil% 0.1 % (0-1); Eosinophil# 0.01 X10^3/uL; Eosinophils% 0.1 % (0-5); Hematocrit 34.3 % (37-47); Hemoglobin 10.5 g/dL (12.0-15.0); Lymphocyte # 1.49 X10^3/ul (0.83-4.51); Lymphocyte % 15.7 % (19-41); Mean Corp Hgb Conc 30.6 g/dL (32-36); Mean Corpuscular Hgb 26.9 pg (27.0-32.0); Mean Corpuscular Volume 87.7 fL (81-99); Mean Platelet Vol. 9.4 fl (6.2-12.0); Monocyte# 1.11 X10^3/uL; Monocyte% 11.7 % (0-10); NRBC Flagged by Analyzer 0 % (0-5); Neutrophil # 6.84 X10^3/uL (2.7-7.7); Neutrophil % 71.9 % (47-70); POSITIVE MORPHOLOGY YES; Platelet Count 214 K/mm3 (150-450); RBC Distribution Width CV 23.1 % (11.6-14.6); RBC Distribution Width SD 72.9 fl (35.1-43.9); Red Blood Count 3.91 M/mm3 (4.2-5.4); White Blood Count 9.5 K/mm3 (4.4-11.0)
[2022-03-08] MEDS: Ipratropium/Albuterol Sulfate 3 ML AMPUL.NEB INHALATION ×3 (07:38→19:36)
[2022-03-08 07:43] LABS: Bacteria 0 SEEN /hpf (None Seen); Mucous, Urine 0 SEEN /hpf (<or=2+); Red Blood Cells-Urine 0 SEEN /hpf (0-5); Squamous Epithelial Cells - UA 0 SEEN /hpf (5-10); White Blood Cells 0 SEEN /hpf (0-5)
[2022-03-08 07:45] LABS: Color, Urine Yellow (Yellow); Glucose, Dipstick Normal (Normal); Ketone-Dipstick Negative (Negative); Leukocyte Esterase-Dipstick Negative /ul (Negative); Nitrite-Dipstick Negative (Negative); Occult Blood-Urine Negative /ul (Negative); Protein-Dipstick Negative (Negative); Specific Gravity, Urine 1.015 (1.002-1.030); Urine Bilirubin Dipstick Negative (Negative); Urine Clarity Clear (Clear); Urine Urobilinogen Normal (Normal)
[2022-03-08 07:51] LABS: AST(SGOT) 19 U/L (15-37); Alanine Aminotransfer ALT/SGPT 18 U/L (13-56); Albumin, Serum 3.3 g/dL (3.2-5.0); Alkaline Phosphatase 64 U/L (45-117); Anion Gap 4 (5-15); BUN 23 mg/dL (7-18); BUN/Creat Ratio 25.6 RATIO (10-20); Calcium,Total 9.2 mg/dL (8.5-10.1); Chloride 104 mmol/L (98-107); EST Glomerular Filtration Rate 65 mL/min (>60); Est Glom Filt Rate - Afr Amer 79 mL/min (>60); Estimated Creatinine Clearance 43.37 ml/min; Globulin 3.4 g/dL (2.2-4.2); Glucose 95 mg/dL (74-106); Potassium 3.6 mmol/L (3.5-5.1); Protein, Total 6.7 g/dL (6.4-8.2); Sodium Level 140 mmol/L (136-145); Troponin-I HS 12 pg/mL (3.0-54.0)
[2022-03-08] MEDS: Acetaminophen 500 MG Tablet 1000 MG PO ×2 (07:51→12:49)
[2022-03-08 07:52] LABS: Lactic Acid 0.7 mmol/L (0.4-1.9)
[2022-03-08 08:09] LABS: Differential Indicated SCAN CRITERIA MET
[2022-03-08 08:17] LABS: Anisocytosis 1+; Platelet Estimate ADEQUATE (ADEQ); Red Cell Morphology N CHROM NORMAL (NORM C&C)
[2022-03-08 08:22] LABS: International Normalized Ratio 1.1
[2022-03-08 08:24] LABS: Partial Thromboplast Time 26.5 Seconds (24.1-36.2)
[2022-03-08 08:55] LABS: Allen Test Positive; Base Excess 3 mmol/L (-2 to +2); Bicarbonate 27.4 mmol/L (22-26); Blood Gas Specimen Type ART; FI02 100; O2 Delivery Device NRB; PO2 147 mmHG (75-100); SITE L Radial; SO2 99 % (95-99); Total Carbon Dioxide 29 mmol/L; pCO2 40.8 mmHg (35-45); pH 7.44 (7.35-7.45)
[2022-03-08 09:01] LABS: BNP,B-Type NATRIURETIC PEPTIDE 631.7 pg/mL (0-100)
--- NOTE | 2022-03-08 09:23 | NURSING ---
DR ANGEL JAMES
--- NOTE | 2022-03-08 09:29 | NURSING ---
PCU ANGEL HYPOXIA, PNEUMONIA
[2022-03-08] MEDS: Enoxaparin 40 MG/0.4 ML Syringe SC (12:26)
[2022-03-08] MEDS: Atenolol 25 MG Tablet PO ×2 (12:27→21:16)
[2022-03-08] MEDS: dilTIAZem CD 120 MG Capsule PO (12:27)
[2022-03-08] MEDS: Potassium Chloride Oral Tablet 20 MEQ PO ×2 (12:27→21:16)
[2022-03-08] MEDS: Amiodarone 200 MG Tablet 100 MG PO (12:28)
[2022-03-08] MEDS: Multivitamins,Ther W-Minerals Tablet 1 TABLET PO (12:28)
[2022-03-08] MEDS: Calcium Carb/Vitamin D 1 TABLET Tablet PO (12:28)
[2022-03-08] MEDS: Furosemide 40 MG/4 ML Vial IV ×2 (12:28→17:30)
[2022-03-08] MEDS: guaiFENesin 1,200 MG Tablet 1200 MG PO ×2 (12:29→21:16)
[2022-03-08] MEDS: Levothyroxine 25 MCG TABLET PO (12:30)
[2022-03-08] MEDS: Gabapentin 300 MG Capsule PO ×2 (12:35→21:16)
--- NOTE | 2022-03-08 14:27 | PCM.HP.STD ---
[facility] - General General Date of Admission: 03/08/22 Date of Service: 03/08/22 Chief Complaint: Shortness of breath HPI Narrative EMILE KITCHEN, is a 76 F who presented to the emergency department was counseled on 03/08/2022 complaining of shortness of breath. The patient reports that earlier this week on Friday she was admitted over to [facility] at which time a spinal stimulator was placed for her chronic low back pain by Dr. Nicole. She was there until and reports that she required 1 L of oxygen upon discharge however she reports that she has been progressively getting worse with regards to shortness of breath since discharge. She states that she is having runs of breath both at rest and with exertion however it worsens with exertion. She reported subjective fever and chills at home and some intermittent pleuritic type chest pain. She denies any nasal congestion, pharyngitis and reports that she has no real cough productive of sputum. She has some intermittent coughing that is dry however. She has had chills and myalgias and general malaise. At baseline she is not oxygen dependent. She does have COPD for which she follows with Dr. Chao from pulmonary medicine. She denies any increased pain or drainage from her surgical site. Upon presentation to the emergency department her temperature was 100.7 with a T-max during her ED stay at 101.6, heart rate was 80 blood pressure was 185/70, respiratory rate was anywhere from 18-28, and oxygen saturations were not assessed on room air however she required a nonrebreather eventually during ED course at 15 L oxygen saturation of 96%. She was able to be weaned to 10 L high flow nasal cannula prior to transfer to the medical floor. Her CBC shows a normal white count with a normocytic anemia which appears to be chronic and stable. She does have a left shift with 71.9% neutrophilia. Coags are normal with an INR of 1.1. The patient is on Coumadin at baseline for atrial fibrillation. An ABG was obtained where she had a pH of 7.44 a PCO2 of 40.8 and a PO2 of 147 on 15 L nonrebreather. Chemistry panel showed normal electrolytes, normal renal function and normal liver functions. Her lactic acid was 0.7. Troponin was 12. BNP was 631.7. UA was obtained and completely unremarkable. Her EKG showed normal sinus rhythm without any ST-T wave changes consistent with ischemia. CTA of the chest was performed and showed no pulmonary embolus or dissection but did show bibasilar atelectasis/infiltrates as well as scarring with small bilateral pleural effusions. In the emergency department cultures were obtained and she was placed on antibiotics with azithromycin and ceftriaxone and her respiratory issues and probable pneumonia. I think this is okay given that she had a very short hospitalization that was less than 3 days. She was also given aerosols. 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 Nonrheumatic aortic (valve) insufficiency Nonrheumatic tricuspid valve regurgitation Osteoarthritis Paroxysmal atrial fibrillation Persistent atrial fibrillation Pneumonia PUD (peptic ulcer disease) Pulmonary hypertension Small bowel obstruction SOB (shortness of breath) on exertion Spinal cord stimulator status 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 classification TIA (transient ischemic attack) Home Medications calcium citrate 200 mg calcium-vitamin D3 6.25 mcg (250 unit) tablet 1 ea PO DAILY SUPPLEMENT 08/12/14 [History Last Taken 09/25/20] zolpidem 10 mg tablet 10 mg PO QHS PRN sleep 03/13/18 [History Last Taken 09/24/20] albuterol sulfate 90 mcg/actuation aerosol inhaler 2 puff inhalation Q4H PRN shortness of breath or wheezing #1 device 08/19/19 [Rx Last Taken 1 Week Ago ~09/18/20] diclofenac potassium 50 mg tablet 50 mg PO BID PAIN 09/15/20 [History Last Taken 09/25/20] gabapentin 300 mg capsule 300 mg PO BID 09/15/20 [History Last Taken 09/24/20] acetaminophen 500 mg tablet 1,000 mg PO DAILY PRN PRN Pain 1-10 Or Fever 09/25/20 [History Last Taken 09/22/20] coenzyme Q10 100 mg capsule 100 mg PO DAILY SUPPLEMENT 09/25/20 [History Last Taken 09/25/20] levothyroxine 25 mcg tablet 25 mcg PO DAILY THYROID 09/25/20 [History Last Taken 09/25/20] magnesium 30 mg tablet 30 mg PO DAILY SUPPLEMENT 09/25/20 [History Last Taken 09/24/20] multivitamin with minerals 1 tab PO DAILY SUPPLEMETN 09/25/20 [History Last Taken 09/25/20] fluticasone fur. 100 mcg-umeclid 62.5 mcg-vilant 25 mcg inhalat.powder 1 inh inhalation DAILY SOB #3 ea 02/14/21 [Rx Last Taken Unknown] warfarin 1 mg tablet 0.5 mg PO MOWEFR BLOOD THINNER 10/19/21 [History Last Taken Unknown] warfarin 1 mg tablet 1 mg PO SUTUTHSA 10/19/21 [History Last Taken Unknown] atenolol 25 mg tablet 25 mg PO BID HEART #60 tabs 10/22/21 [Rx Last Taken Unknown] furosemide 40 mg tablet 40 mg PO BID Swelling #60 tabs 11/06/21 [Rx Last Taken Unknown] potassium chloride 20 mEq tablet,extended release 20 meq PO BID #90 tabs 11/06/21 [Rx Last Taken Unknown] amiodarone 200 mg tablet 100 mg PO DAILY HEART #90 tabs 12/06/21 [Rx Last Taken Unknown] diltiazem HCl 120 mg capsule,extended release 24 hr 120 mg PO DAILY #60 caps 12/14/21 [Rx Last Taken Unknown] Allergy/AdvReac Type Severity Reaction Status Date / Time cortisone Allergy a.fib Verified 03/08/22 07:14 hydrocodone [From Vicodin] AdvReac Severe Vomiting Verified 03/08/22 07:14 Xalxlsi-WMC-BpO Reductase AdvReac Severe Myalgias Verified 03/08/22 07:14 Inhibitor [Gxaizwe-Xxf-Jsy Reductase Inhibitor] adhesive AdvReac Rash if on Verified 03/08/22 07:14 for extended period of time Family History Father CVA (cerebral vascular accident) Mother CVA (cerebral vascular accident) Sister CAD (coronary artery disease) Atrial fibrillation Sister COPD (chronic obstructive pulmonary disease) Surgical History (Updated 03/08/22 @ 15:[address] Leana Maria DO) H/O left wrist surgery History of back surgery History of left hip replacement History of right hip replacement History of rotator cuff surgery S/P foot surgery, right S/P insertion of spinal cord stimulator Social History pets and animals: Yes pets and animals: dog(s) Smoking Status: Former smoker Tobacco: How many years used: 36 how long ago did patient quit smokin alcohol intake: current alcohol intake frequency: a few times a week Alcohol type: beer details: rare substance use type: does not use ROS Constitutional Constitutional: Reports fatigue, fever(s), malaise and weakness; Denies anorexia, change in weight, chills, night sweats or other Eyes Eyes: Denies blurry vision, change in eye color, change in vision, discharge from eye(s), double vision, erythema, eye pain, loss of vision or other ENT HEENT: Denies abnormal hearing, dysphagia, ear pain, epistaxis, headache(s), hearing loss, nasal congestion, nasal discharge, post nasal drip, sinus pressure, sore throat or other Cardiovascular Cardiovascular: Reports dyspnea on exertion and edema; Denies chest pain, claudication, lightheadedness, orthopnea, palpitations, paroxysmal nocturnal dyspnea, rapid heart rate, syncope or other Respiratory/Chest Respiratory/Chest: Reports cough, dyspnea, shortness of breath at rest, shortness of breath with exertion and wheezing; Denies excessive phlegm production, hemoptysis, productive cough or other Gastrointestinal Gastrointestinal: Denies abdominal pain, coffee ground emesis, constipation, diarrhea, dyspepsia, hematemesis, hematochezia, loose stools, melena, nausea, vomiting or other Genitourinary Genitourinary: Denies burning urination, difficulty urinating, dysuria, hematuria, nocturia, urinary frequency, urinary hesitancy, urinary incontinence, urinary urgency or other Musculoskeletal Musculoskeletal: Reports back pain and joint pain; Denies arthralgias, joint stiffness, joint swelling, myalgias, neck pain or other Neurologic Neurologic: Reports abnormal gait and numbness; Denies abnormal speech, confusion, disequilibrium, dizziness, focal weakness, headache(s), paresthesias, seizure-like activity, seizures, syncope, tingling, tremor(s) or other Psychiatric Psychiatric: Denies anxiety, depression, homicidal ideation, suicidal ideation or other Endocrine Endocrinology: Denies change in body appearance, cold intolerance, excessive sweating, heat intolerance, polydipsia, polyuria or other Hematologic/Lymphatic Hematologic/Lymphatic: Reports easy bleeding and easy bruising; Denies anemia, lymphadenopathy or other Allergic/Immunologic Allergic/Immunologic: Denies rhinitis, hives, eczemia, asthma or other Vital Signs Vital Signs Vital Signs: 03/08/22 06:43 03/08/22 06:58 03/08/22 07:07 Temperature 99.4 F H 100.7 F H Temperature Source Oral Temporal Pulse Rate 86 80 Respiratory Rate 22 H 26 H Respiratory Effort Short of Breath Respiratory Depth Respiratory Pattern Blood Pressure 185/70 H 185/70 H Blood Pressure Mean 108 108 Blood Pressure Source Blood Pressure Position Blood Pressure Location Pulse Ox 92 94 Oxygen Delivery Method Nasal Cannula Non-Rebreather Venturi Mask Oxygen Flow Rate (L/min) 4 12 12 Fraction of Inspired Oxygen (FIO2) 50 03/08/22 07:07 03/08/22 08:23 03/08/22 07:41 Temperature 100.7 F H 101.6 F H Temperature Source Temporal Oral Pulse Rate 80 83 79 Respiratory Rate 26 H 18 28 H Respiratory Effort Respiratory Depth Respiratory Pattern Blood Pressure 185/70 H 163/59 H Blood Pressure Mean 108 93 Blood Pressure Source Blood Pressure Position Blood Pressure Location Pulse Ox 94 94 Oxygen Delivery Method Venturi Mask Non-Rebreather Oxygen Flow Rate (L/min) 12 15 Fraction of Inspired Oxygen (FIO2) 50 03/08/22 07:41 03/08/22 09:16 03/08/22 09:16 Temperature 98.7 F 98.7 F Temperature Source Temporal Temporal Pulse Rate 69 69 Respiratory Rate 19 H 19 H Respiratory Effort Respiratory Depth Respiratory Pattern Blood Pressure 127/56 H 127/56 H Blood Pressure Mean 79 79 Blood Pressure Source Blood Pressure Position Blood Pressure Location Pulse Ox 90 95 93 Oxygen Delivery Method Venturi Mask Nasal Cannula Nasal Cannula Oxygen Flow Rate (L/min) 12 10 10 Fraction of Inspired Oxygen (FIO2) 50 03/08/22 09:05 03/08/22 09:10 03/08/22 09:31 Temperature 97.7 F L Temperature Source Temporal Pulse Rate 80 Respiratory Rate 25 H Respiratory Effort Respiratory Depth Respiratory Pattern Blood Pressure 145/100 H Blood Pressure Mean 115 Blood Pressure Source Blood Pressure Position Blood Pressure Location Pulse Ox 96 93 92 Oxygen Delivery Method Non-Rebreather High Flow Nasal Cannula Oxygen Flow Rate (L/min) 15 10 10 Fraction of Inspired Oxygen (FIO2) 100 03/08/22 10:24 03/08/22 11:00 03/08/22 13:23 Temperature 97.2 F L 98.3 F Temperature Source Temporal Oral Pulse Rate 68 60 Respiratory Rate 22 H 18 Respiratory Effort Normal Respiratory Depth Normal Respiratory Pattern Normal Blood Pressure 139/60 H 125/96 H Blood Pressure Mean 86 105 Blood Pressure Source Monitor Blood Pressure Position Semi-Fowlers Blood Pressure Location Right Arm Pulse Ox 92 95 Oxygen Delivery Method Nasal Cannula Nasal Cannula Oxygen Flow Rate (L/min) 10 10 Fraction of Inspired Oxygen (FIO2) Weight Weight: 69.3 kg Body Mass Index (BMI) 27.9 Physical Exam Const alert, oriented x3 and well nourished Constitutional Narrative: Overweight, older white female sitting up in bed in the emergency department, appears older than stated age, conversational dyspnea noted, nursing at bedside HEENT normocephalic, head/scalp atraumatic and moist oral mucous membranes HEENT Narrative: Mallampati 2-3, no thrush, mild hearing loss Eyes PERRL, EOMs intact bilaterally and conjunctivae normal Eyes Narrative: No scleral icterus Neck no lymphadenopathy, supple and no JVD Neck Narrative: Trachea midline, no thyroid enlargement Resp Resp Narrative: Scattered crackles and end expiratory wheeze no rhonchi diffusely diminished Auscultation: crackles and wheezes; Negative for rhonchi Cardio regular rate, regular rhythm, S1 normal heart sound, S2 normal heart sound, no murmurs, no rub, no gallops, no clicks and no JVD GI normal to inspection, nondistended, normoactive bowel sounds, soft to palpation, non-tender and non-distended Extremity Extremity Narrative: 1+ bilateral lower extremity pitting edema-patient indicates this is chronic, no clubbing or cyanosis Skin skin turgor normal, no jaundice, no petechiae and no mottling Skin Narrative: Incision on back noted and is clean dry and intact, sutures are still in place, no significant drainage on the operative bandage Neuro oriented x3, CN's II-XII intact bilaterally, moves all extremities and no focal motor deficits Neuro Narrative: Bilateral lower extremity neuropathy distally, generalized weakness noted Speech: speech normal Psych Psych Narrative: Affect is slightly flat although interaction is normal and patient's eye contact is good Results Lab / Micro Data Attestation: I reviewed the patient's lab results. Result Diagrams: 03/08/22 07:10 03/08/22 07:10 Labs: Laboratory Results - last 24 hr 03/08/22 07:10: WBC 9.5, RBC 3.91 L, Hgb 10.5 L, Hct 34.3 L, MCV 87.7, MCH 26.9 L, MCHC 30.6 L, RDW Std Deviation 72.9 H, RDW Coeff of Nicki 23.1 H, Plt Count 214, MPV 9.4, Immature Gran % (Auto) 0.500, Neut % (Auto) 71.9 H, Lymph % (Auto) 15.7 L, Ulster % (Auto) 11.7 H, Eos % (Auto) 0.1, Baso % (Auto) 0.1, Absolute Neuts (auto) 6.8, Absolute Lymphs (auto) 1.49, Nucleated RBC % 0, Platelet Estimate ADEQUATE, RBC Morphology N CHROM, Anisocytosis 1+ 03/08/22 07:10: PT 14.0, INR 1.1, APTT 26.5 03/08/22 07:10: Sodium 140, Potassium 3.6, Chloride 104, Carbon Dioxide 32.0, Anion Gap 4 L, BUN 23 H, Creatinine 0.90, Estim Creat Clear Calc 43.37, Est GFR (MDRD) Af Amer 79, Est GFR (MDRD) Non-Af 65, BUN/Creatinine Ratio 25.6 H, Glucose 95, Calcium 9.2, Total Bilirubin 0.70, AST 19, ALT 18, Alkaline Phosphatase 64, Troponin I High Sens 12, Total Protein 6.7, Albumin 3.3, Globulin 3.4, Albumin/Globulin Ratio 1.0 03/08/22 07:10: Lactic Acid 0.7 03/08/22 07:10: B-Natriuretic Peptide 631.7 H 03/08/22 07:35: Urine Color Yellow, Urine Clarity Clear, Urine pH 5.0, Ur Specific Linn 1.015, Urine Protein Negative, Urine Glucose (UA) Normal, Urine Ketones Negative, Urine Occult Blood Negative, Urine Nitrite Negative, Urine Bilirubin Negative, Urine Urobilinogen Normal, Ur Leukocyte Esterase Negative, Urine RBC 0 SEEN, Urine WBC 0 SEEN, Ur Squamous Epith Cells 0 SEEN, Urine Bacteria 0 SEEN, Urine Mucus 0 SEEN Micro: Microbiology 03/08/22 07:35 Nasal Secretion SARS-CoV-2 & FLU Antigen (Rapid) - Final ABG Data ABG results: ABG 03/08/22 08:48 Specimen Type ART Sample Site L Radial pH 7.44 Bicarbonate Actual 27.4 H Total CO2 29 Base Excess 3 H O2 Saturation 99 O2 % 100 ABG pCO2 40.8 ABG pO2 147 H Wes Test Positive O2 Delivery Device NRB Radiology Impression Chest CTA 03/08/22 07:21 IMPRESSION: Normal CTA chest examination, without a demonstrated pulmonary embolism or arterial dissection. Electronically Signed: Robert Ruiz MD at 8:47 EDT , Assessment & Plan Assessment/Plan (1) Acute respiratory failure with hypoxia: (2) Fever: (3) Acute heart failure with normal ejection fraction: (4) Edema: PLAN: Plan Acute hypoxic respiratory failure secondary to suspected pneumonia/decompensated HFpEF/COPD exacerbation -Patient is on room air at baseline however was discharged on 1 L nasal cannula from [facility] yesterday -Currently requiring 10 L nasal cannula--> wean as able -Fever in the emergency department however no white count at this time -CTA of the chest showed no pulmonary embolus or dissection, mild bilateral apical scarring, small bilateral pleural effusions and bilateral lower lobe infiltratesWith air bronchograms present -Check respiratory PCR -COVID and flu are negative -Check strep pneumo and Legionella antigens -Since patient had a less than 3-day hospital stay will initiate CAP coverage with ceftriaxone and azithromycin however if clinically decompensates may need to broaden coverage -Patient also appears volume overloaded with an elevated BNP and a lower than normal serum creatinine -Hold home Lasix -Start IV Lasix 40 mg IV push twice daily -Also significantly wheezing on exam with extremely bad lung disease at baseline--> PFT from 2021 shows an FEV1 of 59% predicted with 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 Chao for pulmonology as an outpatient Acute on chronic decompensated HFpEF -Recent echocardiogram done for 2021 showed an EF of 65% with a moderately enlarged left atrium, normal right atrial size, moderate mitral annular calcification with mild to moderate mitral valve insufficiency, moderate tricuspid valve insufficiency, trivial aortic valve insufficiency and a right ventricular systolic pressure of 72 mmHg with diastolic flow velocities suggestive of diastolic dysfunction. -Fluid restrict and sodium restrict diet -Daily weights -Accurate I's and O's -Lasix 40 mg IV push twice daily -Hold home Lasix at this time Fever -Suspect pneumonia based on imaging and clinical exam -Wound from spinal stimulator placement appears to be noninfected -Monitor fever curve -Antibiotics as above -Cultures pending PAF -Continue amiodarone -Continue home atenolol -Continue diltiazem -Restart home Coumadin--> okay per discussion with Dr. Nicole -Check INR daily -Current INR 1.1 Hypothyroidism -Continue home levothyroxine -We will check TSH given respiratory issues Chronic low back pain with recent spinal stimulator placement -Dr. Nicole consulted -Change dressing daily -PT to evaluate for gait and to encourage movement -Continue home gabapentin COPD Gold stage II -We will hold home inhalers at this time -Treat exacerbation with steroids IV/DuoNebs/aggressive pulmonary toilet -Recommend pulmonary follow-up shortly after discharge--> patient sees Dr. Chao at baseline Carotid artery disease -Continue home baseline medical therapy Pulmonary hypertension who group 3 -Suspect related to baseline pulmonary dysfunction -Diuresis as above -Right ventricular systolic pressure was noted to be 72 mmHg on her last echocardiogram from November Hypertension -Continue atenolol -Continue diltiazem -Hold home Lasix and utilize IV Lasix Hyperlipidemia -Patient is not currently on a statin secondary to intolerance previously DVT prophylaxis -Lovenox 40 mg daily -Discontinue Lovenox once INR is therapeutic -SCDs CODE STATUS -Full code as per discussion on admission in the emergency department Charges/Coding Visit Charges Inpatient E&M: 11550 Init Hosp L3
[2022-03-08] MEDS: 0.9% Saline Lock 10 ML Syringe IV ×2 (17:30→21:15)
[2022-03-08] MEDS: Warfarin 0.5 MG Tablet PO (17:30)
[2022-03-08 22:08] LABS: M R Staph aureus DNA By PCR Negative (Negative); Probe Check PASS; Specimen Processing Control PASS
--- NOTE | 2022-03-08 22:09 | NURSING ---
Patient states she has taken hydrocodone without any problems with vomiting
[2022-03-08] MEDS: HYDROcodone Bitartrate/Apap 5/325 Tablet PO (22:39)
[2022-03-08] MEDS: Zolpidem Tartrate 5 MG Tablet PO (23:54)
[2022-03-09] VITALS (13 sets, daily range): BP systolic 136–158; BP diastolic 56–66; PULSE 52–81; RESP 16–19; TEMP 36.6–36.8; O2SAT 2–98
[2022-03-09] MEDS: 0.9% Saline Lock 10 ML Syringe IV ×3 (05:21→15:06)
[2022-03-09] MEDS: Levothyroxine 25 MCG TABLET PO (05:21)
[2022-03-09 06:05] LABS: Absolute Lymphocyte Count 0.76 X10^3/uL (0.83-4.51); Hematocrit 33.5 % (37-47); Hemoglobin 10.3 g/dL (12.0-15.0); Lymphocyte # 0.76 X10^3/ul (0.83-4.51); Lymphocyte % 15.4 % (19-41); Mean Corp Hgb Conc 30.7 g/dL (32-36); Mean Corpuscular Volume 87.9 fL (81-99); Mean Platelet Vol. 9.5 fl (6.2-12.0); Monocyte# 0.13 X10^3/uL; Monocyte% 2.6 % (0-10); NRBC Flagged by Analyzer 0 % (0-5); Neutrophil # 4.04 X10^3/uL (2.7-7.7); Neutrophil % 81.6 % (47-70); POSITIVE MORPHOLOGY YES; Platelet Count 186 K/mm3 (150-450); RBC Distribution Width CV 22.3 % (11.6-14.6); RBC Distribution Width SD 70.3 fl (35.1-43.9); Red Blood Count 3.81 M/mm3 (4.2-5.4)
[2022-03-09 06:17] LABS: International Normalized Ratio 1.1; Prothrombin Time (Protime)PT. 13.9 SECONDS (11.7-14.9)
[2022-03-09 06:24] LABS: Differential Indicated SCAN CRITERIA MET
[2022-03-09 07:00] LABS: Anisocytosis 2+; Differential Comment SCANNED; Microcytosis 1+
[2022-03-09] MEDS: Ipratropium/Albuterol Sulfate 3 ML AMPUL.NEB INHALATION (07:01)
[2022-03-09 07:20] LABS: ALB/GLOB Ratio 0.8 RATIO (0.9-2.4); AST(SGOT) 15 U/L (15-37); Alanine Aminotransfer ALT/SGPT 19 U/L (13-56); Albumin, Serum 2.8 g/dL (3.2-5.0); Alkaline Phosphatase 65 U/L (45-117); Anion Gap 6 (5-15); BUN 21 mg/dL (7-18); BUN/Creat Ratio 23.6 RATIO (10-20); Chloride 102 mmol/L (98-107); Creatinine, Serum 0.89 mg/dL (0.55-1.02); EST Glomerular Filtration Rate 66 mL/min (>60); Est Glom Filt Rate - Afr Amer 80 mL/min (>60); Estimated Creatinine Clearance 43.86 ml/min; Globulin 3.6 g/dL (2.2-4.2); Glucose 144 mg/dL (74-106); Magnesium 1.8 mg/dL (1.6-2.6); Phosphorus 2.9 mg/dL (2.5-4.9); Protein, Total 6.4 g/dL (6.4-8.2); Sodium Level 141 mmol/L (136-145); Thyroid Stim Hormone (TSH) 0.46 uIU/mL (0.358-3.74)
[2022-03-09] MEDS: Multivitamins,Ther W-Minerals Tablet 1 TABLET PO (08:39)
[2022-03-09] MEDS: Calcium Carb/Vitamin D 1 TABLET Tablet PO (08:40)
[2022-03-09] MEDS: dilTIAZem CD 120 MG Capsule PO (08:40)
[2022-03-09] MEDS: Amiodarone 200 MG Tablet 100 MG PO (08:41)
[2022-03-09] MEDS: Potassium Chloride Oral Tablet 20 MEQ PO (08:41)
[2022-03-09] MEDS: guaiFENesin 1,200 MG Tablet 1200 MG PO (08:42)
[2022-03-09] MEDS: Enoxaparin 40 MG/0.4 ML Syringe SC (08:42)
[2022-03-09] MEDS: Furosemide 40 MG/4 ML Vial IV (08:42)
[2022-03-09] MEDS: Gabapentin 300 MG Capsule PO (08:48)
--- NOTE | 2022-03-09 14:14 | PCM.DC ---
Discharge Instructions Diet Discharge Diet: No restrictions Activity Discharge Activity: Return to Normal Activity Weight Bearing Status: Full weight bearing Follow Up Care Test Results: Test results from this visit will be discussed in further detail at your follow-up appointment, if applicable. Discharge Plan Admission Admit Date/Time: 03/08/22 09:25 Primary Reason for Your Visit: Congestive heart failure, acute on chronic respiratory failure Attending Provider: Noah Roa Primary Care Provider: Tasneem Beck Consulting Providers: Adonay Nicole ; Leana Maria Instructions Additional Instructions / Restrictions: You cannot take diclofenac for pain due to the fact that you are taking warfarin, you are at risk for bleeding by taking diclofenac and warfarin at the same time. You will need to discuss this with your pain management doctor or PCP. You also cannot take ibuprofen or Aleve while taking warfarin. Tylenol or narcotics are safe to take with warfarin. You will need a BMP (lab test) ordered by your PCP to recheck your kidney functions. Resume your home dose of Protonix. Use oxygen at 2 L/min via nasal cannula, you will need to be reevaluated by your PCP for continued use. Discharge Orders/Prescriptions Prescriptions: Continued gabapentin 300 mg capsule 300 mg PO BID albuterol sulfate 90 mcg/actuation HFA aerosol inhaler 2 puff inhalation Q4H PRN (Reason: shortness of breath or wheezing) Qty: 1 6RF Rx Instructions: administer with spacer zolpidem 10 mg tablet 10 mg PO QHS PRN (Reason: sleep) Label Comments: SLEEPING PILL calcium citrate-vitamin D3 1 EACH tablet 1 ea PO DAILY Label Comments: supplement acetaminophen 500 MG tablet 1,000 mg PO DAILY PRN PRN (Reason: Pain 1-10 Or Fever) multivitamin with minerals 1 EACH tablet 1 tab PO DAILY magnesium 30 MG tablet 30 mg PO DAILY coenzyme Q10 100 MG capsule 100 mg PO DAILY levothyroxine 25 MCG tablet 25 mcg PO DAILY [id number] 100-62.5-25 mcg blister with device 1 inh INHALATION DAILY Qty: 3 3RF warfarin 1 mg tablet 0.5 mg PO Protocol: Dose Management Condition: Friday Dose/Route: 1 mg Instruction: 1 x 1 mg tablet Condition: Friday Dose/Route: 1 mg Instruction: 1 x 1 mg tablet Condition: Friday Dose/Route: 1 mg Instruction: 1 x 1 mg tablet Condition: Friday Dose/Route: 1 mg Instruction: 1 x 1 mg tablet Condition: Dose/Route: 0 mg Instruction: 0 tablets Condition: Friday Dose/Route: 1 mg Instruction: 1 x 1 mg tablet Condition: Friday Dose/Route: 1 mg Instruction: 1 x 1 mg tablet Protocol Text: Adjustment Start Date: Friday02/15/22 INR Value: 1.5 INR Date: 02/15/22 Recheck Date: 03/12/22 Rx Instructions: Managed by Dr. Beck warfarin 1 mg tablet 1 mg PO [facility] Protocol: Dose Management Condition: Friday Dose/Route: 1 mg Instruction: 1 x 1 mg tablet Condition: Friday Dose/Route: 1 mg Instruction: 1 x 1 mg tablet Condition: Friday Dose/Route: 1 mg Instruction: 1 x 1 mg tablet Condition: Friday Dose/Route: 1 mg Instruction: 1 x 1 mg tablet Condition: Dose/Route: 0 mg Instruction: 0 tablets Condition: Friday Dose/Route: 1 mg Instruction: 1 x 1 mg tablet Condition: Friday Dose/Route: 1 mg Instruction: 1 x 1 mg tablet Protocol Text: Adjustment Start Date: Friday02/15/22 INR Value: 1.5 INR Date: 02/15/22 Recheck Date: 03/12/22 Rx Instructions: Managed by Dr. Beck atenolol 25 mg tablet 25 mg PO BID Qty: 60 11RF furosemide 40 mg tablet 40 mg PO BID Qty: 60 11RF potassium chloride 20 mEq tablet extended release 20 meq PO BID Qty: 90 3RF amiodarone 200 mg tablet 100 mg PO DAILY Qty: 90 3RF diltiazem HCl 120 mg capsule,extended release 24hr 120 mg PO DAILY Qty: 60 11RF Discontinued diclofenac potassium 50 mg tablet 50 mg PO BID Referrals / Follow Up: Tasneem Beck MD [Primary Care Provider] - Within 2 Weeks Disposition Disposition (needs filled in before D/C Order can be placed): Home, Self Care
--- NOTE | 2022-03-09 14:30 | PCM.DC.SUM ---
Providers Date of Admission: 03/08/22 Date of Discharge: 03/09/22 Primary Care Physician: Dr. Tasneem Beck MD Consultations 03/08/22 11:04 Consult: Orthopedics Routine Consulting Provider: Adonay Nicole Reason for Consult: Recent spinal surgery EMERGENT Consult: No MD Notified: Yes Date Notified: 03/08/22 Time Notified: 11:04 Method of Notification: Text Reason For Visit: ACUTE HYPOXIA RESP FAILURE Diagnosis Discharge Diagnosis (1) Acute respiratory failure with hypoxia: Status: Acute Code(s): J96.01 - Acute respiratory failure with hypoxia (2) Fever: Status: Acute Code(s): R50.9 - Fever, unspecified (3) Acute heart failure with normal ejection fraction: Status: Acute Code(s): I50.31 - Acute diastolic (congestive) heart failure (4) Edema: Status: Acute Code(s): R60.9 - Edema, unspecified Plan Final diagnosis: #1 acute hypoxic respiratory failure on a backdrop of chronic hypoxic respiratory failure due to acute diastolic congestive heart failure #2 acute on chronic diastolic congestive heart failure #3 severe pulmonary hypertension #4 paroxysmal atrial fibrillation #5 chronic pain secondary to degenerative disc disease of the lumbar spine #6 chronic obstructive pulmonary disease Medications at Discharge Home Medications calcium citrate 200 mg calcium-vitamin D3 6.25 mcg (250 unit) tablet 1 ea PO DAILY SUPPLEMENT 08/12/14 zolpidem 10 mg tablet 10 mg PO QHS PRN sleep 03/13/18 albuterol sulfate 90 mcg/actuation aerosol inhaler 2 puff inhalation Q4H PRN shortness of breath or wheezing #1 device 08/19/19 gabapentin 300 mg capsule 300 mg PO BID 09/15/20 acetaminophen 500 mg tablet 1,000 mg PO DAILY PRN PRN Pain 1-10 Or Fever 09/25/20 coenzyme Q10 100 mg capsule 100 mg PO DAILY SUPPLEMENT 09/25/20 levothyroxine 25 mcg tablet 25 mcg PO DAILY THYROID 09/25/20 magnesium 30 mg tablet 30 mg PO DAILY SUPPLEMENT 09/25/20 multivitamin with minerals 1 tab PO DAILY SUPPLEMETN 09/25/20 fluticasone fur. 100 mcg-umeclid 62.5 mcg-vilant 25 mcg inhalat.powder 1 inh inhalation DAILY SOB #3 ea 02/14/21 warfarin 1 mg tablet 0.5 mg PO MOWEFR BLOOD THINNER 10/19/21 warfarin 1 mg tablet 1 mg PO SUTUTHSA 10/19/21 atenolol 25 mg tablet 25 mg PO BID HEART #60 tabs 10/22/21 furosemide 40 mg tablet 40 mg PO BID Swelling #60 tabs 11/06/21 potassium chloride 20 mEq tablet,extended release 20 meq PO BID #90 tabs 11/06/21 amiodarone 200 mg tablet 100 mg PO DAILY HEART #90 tabs 12/06/21 diltiazem HCl 120 mg capsule,extended release 24 hr 120 mg PO DAILY #60 caps 12/14/21 Hospital Course Operations None Procedures None Summary of Care Provided Minutes Spent on Discharge: 31 Hospital Course: This 76-year-old white female was seen in the emergency room at [facility] with a chief complaint of progressive shortness of breath times several days. Patient recently had a spinal cord stimulator placed at an outside hospital, at the time of discharge from the hospital, patient was placed on 1 L of oxygen home-going. Patient has a history of chronic obstructive pulmonary disease but had not been on oxygen prior. Work-up in the emergency room included an EKG which revealed normal sinus rhythm, BNP was elevated at 631, CT of the chest was obtained it showed no evidence of pulmonary embolism but there were bilateral pleural effusions with bibasilar atelectasis present. Patient's labs showed a normal white blood cell count and chemistry profile was basically unremarkable. Patient was given IV antibiotics for possible pneumonia, she is also given aerosol treatments, and she required oxygen at 10 L to maintain her oxygen sat above 90%. Patient's COVID test and flu test were negative. Patient was given IV Lasix due to concerns of fluid overload, she was admitted to PCU and kept on IV Lasix, she was kept on IV antibiotics for possible pneumonia, and was placed on IV Solu-Medrol. Over the next 24 hours, the patient's respiratory status improved greatly and she was weaned down to 2 L of oxygen via nasal cannula. It was felt that the patient had acute on chronic diastolic congestive heart failure, this examiner did not feel she had pneumonia. This examiner also did not feel that she had an exacerbation of COPD. On 03/09/2022, patient was seen and examined: On examination she appeared in good health and spirits, she does not appear to be in any distress. Vital signs as documented. Skin warm and dry and without overt rashes. Neck without JVD, thyroid appears normal, trachea is midline, neck is supple. Lungs clear, normal air movement was noted. Heart exam notable for regular rhythm, normal sounds and absence of murmurs, rubs or gallops. Abdomen unremarkable and without evidence of organomegaly, masses, or abdominal aortic enlargement, bowel sounds are present in all 4 quadrants, no abdominal tenderness was noted. Extremities nonedematous, no cyanosis was noted, no clubbing was noted. Neuro: Cranial nerves II through XII are grossly intact, no focal motor deficits were noted, sensation to light touch and pinprick is intact, motor exam 5/5 throughout. Psych: Patient is alert and oriented x3, she does not appear anxious or depressed, she does not appear agitated. Patient appears stable for discharge home on 03/09/2022. Weight / BMI Weight Weight: 69.3 kg Body Mass Index (BMI) 25.8 ABG / Lab / Microbiology Data Result Diagrams: 03/09/22 05:45 03/09/22 05:45 Laboratory: Laboratory Results - last 24 hr 03/08/22 20:10: MRSA (PCR) Negative 03/09/22 05:45: PT 13.9, INR 1.1 03/09/22 05:45: WBC 5.0, RBC 3.81 L, Hgb 10.3 L, Hct 33.5 L, MCV 87.9, MCH 27.0, MCHC 30.7 L, RDW Std Deviation 70.3 H, RDW Coeff of Nicki 22.3 H, Plt Count 186, MPV 9.5, Immature Gran % (Auto) 0.400, Neut % (Auto) 81.6 H, Lymph % (Auto) 15.4 L, [place]ñuel[place] % (Auto) 2.6, Eos % (Auto) 0.0, Baso % (Auto) 0.0, Absolute Neuts (auto) 4.0, Absolute Lymphs (auto) 0.76 L, Nucleated RBC % 0, Differential Comment SCANNED, Anisocytosis 2+, Microcytosis 1+ 03/09/22 05:45: Sodium 141, Potassium 4.0, Chloride 102, Carbon Dioxide 33.0 H, Anion Gap 6, BUN 21 H, Creatinine 0.89, Estim Creat Clear Calc 43.86, Est GFR (MDRD) Af Amer 80, Est GFR (MDRD) Non-Af 66, BUN/Creatinine Ratio 23.6 H, Glucose 144 H, Calcium 10.0, Phosphorus 2.9, Magnesium 1.8, Total Bilirubin 0.90, AST 15, ALT 19, Alkaline Phosphatase 65, Total Protein 6.4, Albumin 2.8 L, Globulin 3.6, Albumin/Globulin Ratio 0.8 L, TSH 0.46 Microbiology: Microbiology 03/08/22 20:54 Interface Orders Streptococcus pneumoniae Antigen (M - Final 03/08/22 20:54 Interface Orders Legionella Antigen - Final 03/08/22 11:38 Mucosa - Nose Respiratory Panel (PCR) - Final 03/08/22 07:35 Nasal Secretion SARS-CoV-2 & FLU Antigen (Rapid) - Final D/C Instructions Discharge Diet: No restrictions Weight Bearing Status: Full weight bearing Meaningful Use Info Meaningful Use Diagnoses (Choose all that apply): CHF CHF MAI/ARB ordered at discharge?: No Reason MAI/ARB not ordered?: Not indicated Documented LVEF (%): 65 Discharge Plan Admission Admit Date/Time: 03/08/22 09:25 Primary Reason for Your Visit: Congestive heart failure, acute on chronic respiratory failure Attending Provider: Noah Roa Primary Care Provider: Tasneem Beck Consulting Providers: Adonay Nicole ; Leana Maria Instructions Additional Instructions / Restrictions: You cannot take diclofenac for pain due to the fact that you are taking warfarin, you are at risk for bleeding by taking diclofenac and warfarin at the same time. You will need to discuss this with your pain management doctor or PCP. You also cannot take ibuprofen or Aleve while taking warfarin. Tylenol or narcotics are safe to take with warfarin. You will need a BMP (lab test) ordered by your PCP to recheck your kidney functions. Resume your home dose of Protonix. Use oxygen at 2 L/min via nasal cannula, you will need to be reevaluated by your PCP for continued use. Discharge Orders/Prescriptions Prescriptions: Continued gabapentin 300 mg capsule 300 mg PO BID albuterol sulfate 90 mcg/actuation HFA aerosol inhaler 2 puff inhalation Q4H PRN (Reason: shortness of breath or wheezing) Qty: 1 6RF Rx Instructions: administer with spacer zolpidem 10 mg tablet 10 mg PO QHS PRN (Reason: sleep) Label Comments: SLEEPING PILL calcium citrate-vitamin D3 1 EACH tablet 1 ea PO DAILY Label Comments: supplement acetaminophen 500 MG tablet 1,000 mg PO DAILY PRN PRN (Reason: Pain 1-10 Or Fever) multivitamin with minerals 1 EACH tablet 1 tab PO DAILY magnesium 30 MG tablet 30 mg PO DAILY coenzyme Q10 100 MG capsule 100 mg PO DAILY levothyroxine 25 MCG tablet 25 mcg PO DAILY exxcapdleyx-fmdgxbyhx-thxinomy 100-62.5-25 mcg blister with device 1 inh INHALATION DAILY Qty: 3 3RF warfarin 1 mg tablet 0.5 mg PO Protocol: Dose Management Condition: Friday Dose/Route: 1 mg Instruction: 1 x 1 mg tablet Condition: Friday Dose/Route: 1 mg Instruction: 1 x 1 mg tablet Condition: Friday Dose/Route: 1 mg Instruction: 1 x 1 mg tablet Condition: Friday Dose/Route: 1 mg Instruction: 1 x 1 mg tablet Condition: Dose/Route: 0 mg Instruction: 0 tablets Condition: Friday Dose/Route: 1 mg Instruction: 1 x 1 mg tablet Condition: Friday Dose/Route: 1 mg Instruction: 1 x 1 mg tablet Protocol Text: Adjustment Start Date: Friday02/15/22 INR Value: 1.5 INR Date: 02/15/22 Recheck Date: 03/12/22 Rx Instructions: Managed by Dr. Beck warfarin 1 mg tablet 1 mg PO [facility] Protocol: Dose Management Condition: Friday Dose/Route: 1 mg Instruction: 1 x 1 mg tablet Condition: Friday Dose/Route: 1 mg Instruction: 1 x 1 mg tablet Condition: Friday Dose/Route: 1 mg Instruction: 1 x 1 mg tablet Condition: Friday Dose/Route: 1 mg Instruction: 1 x 1 mg tablet Condition: Dose/Route: 0 mg Instruction: 0 tablets Condition: Friday Dose/Route: 1 mg Instruction: 1 x 1 mg tablet Condition: Friday Dose/Route: 1 mg Instruction: 1 x 1 mg tablet Protocol Text: Adjustment Start Date: Friday02/15/22 INR Value: 1.5 INR Date: 02/15/22 Recheck Date: 03/12/22 Rx Instructions: Managed by Dr. Beck atenolol 25 mg tablet 25 mg PO BID Qty: 60 11RF furosemide 40 mg tablet 40 mg PO BID Qty: 60 11RF potassium chloride 20 mEq tablet extended release 20 meq PO BID Qty: 90 3RF amiodarone 200 mg tablet 100 mg PO DAILY Qty: 90 3RF diltiazem HCl 120 mg capsule,extended release 24hr 120 mg PO DAILY Qty: 60 11RF Discontinued diclofenac potassium 50 mg tablet 50 mg PO BID Referrals / Follow Up: Tasneem Beck MD [Primary Care Provider] - Within 2 Weeks Disposition Disposition (needs filled in before D/C Order can be placed): Home, Self Care Charges/Coding Visit Charges Inpatient E&M: 29595 Disch Hosp
[2022-03-09] MEDS: HYDROcodone Bitartrate/Apap 5/325 Tablet PO (15:03)
--- NOTE | 2022-03-09 16:00 | CASEMGMT ---
Social Work Note Reason for Referral: placed referral to Adult Abuse/Neglect. SW spoke with solution analyst, RN and RN CM, no concerns noted. SW in to speak with pt. SW introduced self and role at [facility]. Pt is alert and orientated, engages in conversation appropriately. Pt states that her family is supportive and states that she lives alone. Pt states that her in July 2021 and in May 2021, it was a year since her first child . Pt states I am not sure what is worse, your passing away or your first child. Pt states they both are bad. SW offered support to pt. SW offered to provide pt with bereavement resources, pt denied. Pt states that did support via the phone when her passed. Pt states that her grandson, Chon Aguilar, has been staying with her and helping. Pt states that Chon was there last night and who called the squad for pt. Pt states that Chon is 14, will be turning 17 on May 23. Pt states that Chon has a mother and lives with her in [place] but he has been staying lately to help out. Pt states I think he comes and see's me for my dogs. Pt states that Chon is currently at his job at the [employer] on [facility] and then will be returning to stay with pt walter. Pt states her sister will be staying with her until Chon arrives. Pt states that Chon's mom is Karine Aguilar and they live on [address] [place] [address] in [place]. Pt states that Karine's number is [phone] and Chon's number is [phone]. Pt states that her family is supportive and is able to assist. Pt states frustration lately with dealing with [employer] companies and states she has been to the [facility] lately. SW offered support. SW informed pt that there was a consult put in on pt for Adult Abuse/Neglect. Pt states on who? Pt states that she lives alone. Pt states that she feels safe at home and denied any abuse or neglect. Pt states that sometimes she will feel neglected if her family doesn't come and see her. SW asked pt if she asks her family to come and see her and pt states she does not. SW spoke with pt how she may want to ask them to if she wants them to. Pt denied any suicidal/homicidal thoughts/plans/ideations. As noted, pt denied any Adult Abuse or neglect. Pt to discharge home today. SW discussed case with Arlyn ALEJANDRA, no CPS report to be made at this time. Shea Judd FIRE SPRINKLER INSPECTOR, COAL FEEDER OPERATOR
--- NOTE | 2022-03-09 16:20 | CASEMGMT ---
Face to Face with patient for initial transition planning/care coordination assessment. MOSHE NIXON introduced self and role at [facility], voices understanding. Pt sitting up in chair and agreeable to discussion. Care providers, pharmacy, and demographics verified. PCP: Ebony Specialists: Maikel Chao Watts Preferred Pharmacy: [facility] Insurance: [place] [facility] Prescription Benefit: Yes LNOK: sister Corinne Living Arrangements: Pt lives alone in a single story home with a ramp to the entrance. 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 Pt staes she has a daughter that lives in [place] and two other children who live out of state. her Great grandson stays with her when needed. Transportation: pt drives and so does her sister and other family if needed DME: raised toilet seat, cane, hospital bed (doesn't use), grab bars, walker, rollator, O2 at 1l/min per NC from [facility] s/p OR this week. SNF/HH: pt states she has not used SNF in the past but has had HH for PT/OT s/p hip OR, She is unable to recall the name of this provider. Plan: Return home with the support of her family and outpt PT/OT at [facility] as previously planned. Discussed need for pt's sister to bring in portable tank to go home with O2. Pt reluctant to ask her sister to travel to her home to retrieve. This RN CM contacted [facility] who could not find pt listed in their system and therefore would not provide a tank. Security Installation Technician also stated that they no longer provide tanks on weekends for patients who can have family bring a tank in from home. Pt's nurse Sandhya notified. Velasquez Gonzales RN CM
== END 2022-03-09 17:43 | disposition home or self-care (01) | DRG 291 ==
LOC: ED 09:35 → PCU 10:36
PROVIDERS: Admitting Provider Internal Medicine; Emergency Provider Emergency Medicine; PCP Internal Medicine; Visit Provider Internal Medicine
DX: I11.0 Hypertensive heart disease with heart failure (principal); J44.9 Chronic obstructive pulmonary disease, unspecified; I50.33 Acute on chronic diastolic (congestive) heart failure; I27.20 Pulmonary hypertension, unspecified; J96.21 Acute and chronic respiratory failure with hypoxia; I48.0 Paroxysmal atrial fibrillation; E78.5 Hyperlipidemia, unspecified; K21.9 Gastro-esophageal reflux disease without esophagitis; I35.1 Nonrheumatic aortic (valve) insufficiency; M19.90 Unspecified osteoarthritis, unspecified site; D64.9 Anemia, unspecified; E03.9 Hypothyroidism, unspecified; I65.29 Occlusion and stenosis of unspecified carotid artery; M51.36 Other intervertebral disc degeneration, lumbar region; Z79.01 Long term (current) use of anticoagulants; Z87.11 Personal history of peptic ulcer disease; Z87.19 Personal history of other diseases of the digestive system; Z86.73 Personal history of transient ischemic attack (TIA), and cerebral infarction without residual deficits; Z79.899 Other long term (current) drug therapy; Z96.82 Presence of neurostimulator; Z87.891 Personal history of nicotine dependence; R50.9 Fever, unspecified; G89.29 Other chronic pain
CPT/HCPCS: 36415; 36600; 71275; 80053; 81001; 82803; 83605; 83735; 83880; 84100; 84443; 84484; 85025; 85610; 85730; 87040; 87428; 87449; 87633; 87641; 93005; 94640; 94667; 96365; 96366; 96367; 96372; 96375; 96376; 97162; 99218; 99251; 99285; J7050; Q9967; A4216; G0378; G0463; J0696; J1940

== ENCOUNTER → 2022-03-19 | Outpatient (CLI) | payer MEDICARE, SELFPAY ==
[2022-03-19 08:30] VITALS: PULSE 60; PULSE 66; PULSE 74; PULSE 75; PULSE 76; PULSE 77; PULSE 82; O2SAT 90; O2SAT 91; O2SAT 92; O2SAT 96
--- NOTE | 2022-03-19 12:54 | WT_ITS ---
PSN 6 Minute Walk Test 6 Minute Walk Test 6 Minute Walk Test: 6 Minute Walk Test PSN:6-Minute Walk Test Start: 03/19/22 08:47 Freq: Status: Active Protocol: RESP.6MINW Document 03/19/22 08:30 [facility] (Rec: 03/19/22 08:50 [facility] [id number]) 6 Minute Walk Test Date Performed 03/19/22 Time Performed 08:30 Height 5 ft Weight: 134 lb Weight in Pounds 134.[address]: Jens Assistive device used: None Pre-test Oxygen Delivery Method Room Air Pulse Ox (%) 96 Pulse Rate (60-100 beats/min) 60 Dyspnea Roxy Scale (0-10) 0 Exertion Roxy Scale (6-20) 6 1st minute Oxygen Delivery Method Room Air Pulse Ox (%) 91 Pulse Rate (60-100 beats/min) 74 2nd minute Oxygen Delivery Method Room Air Pulse Ox (%) 91 Pulse Rate (60-100 beats/min) 75 3rd minute Oxygen Delivery Method Room Air Pulse Ox (%) 92 Pulse Rate (60-100 beats/min) 75 4th minute Oxygen Delivery Method Room Air Pulse Ox (%) 90 Pulse Rate (60-100 beats/min) 82 5th minute Oxygen Delivery Method Room Air Pulse Ox (%) 92 Pulse Rate (60-100 beats/min) 76 6th minute Oxygen Delivery Method Room Air Pulse Ox (%) 92 Pulse Rate (60-100 beats/min) 77 Dyspnea Roxy Scale (0-10) 0.5 Exertion Roxy Scale (6-20) 11 Post-test Oxygen Delivery Method Room Air Pulse Ox (%) 96 Pulse Rate (60-100 beats/min) 66 Full Laps Walked 11 Partial Lap, Number of Tiles Walked 9 Total Distance Walked (ft) 658 Interpretation Interpretation: The patient ambulated 658 feet over the course of 6 minutes beginning on room air without assistive devices. Pretesting oxygen saturation was noted to be 95% on room air. With ambulation, the jg oxygen saturation was 90%. This represents a significant exertional oxygen desaturation, consistent with a pulmonary limitation to exercise tolerance. Recommendations Recommendations: There is no indication for the use of supplemental oxygen at this time. However, close interval follow-up is recommended, given the degree of oxygen desaturation noted during this study.
== END | disposition home or self-care (01) ==
PROVIDERS: PCP Internal Medicine; Referring Provider Nurse Practitioner Acute Care; Visit Provider Nurse Practitioner Acute Care
DX: J44.9 Chronic obstructive pulmonary disease, unspecified (principal)
CPT/HCPCS: 94618

== ENCOUNTER → 2022-03-21 | Outpatient (CLI) | payer MEDICARE, SELFPAY ==
--- NOTE | 2022-03-22 13:06 | PFT ---
INTRODUCTION: The patient is a 76-year-old female that presents for pulmonary function studies secondary to a diagnosis of COPD. Respiratory therapy reported good patient effort. Bronchodilators were used during testing. INTERPRETATION: Forced expiration spirometry demonstrates no evidence of a large airways obstructive ventilatory defect. There was a significant response to aerosolized bronchodilators. Spirograms are of good quality and plateau normally. Body plethysmography was performed and reveals lung volumes to be within normal limits. Diffusing capacity by single breath CO is mildly reduced. IMPRESSION: Stigmata of small airways disease with significant bronchodilator response and mild reduction in diffusing capacity.
== END | disposition home or self-care (01) ==
PROVIDERS: PCP Internal Medicine; Referring Provider Nurse Practitioner Acute Care; Visit Provider Nurse Practitioner Acute Care
DX: J44.9 Chronic obstructive pulmonary disease, unspecified (principal)
CPT/HCPCS: 94060; 94726; 94729

== ENCOUNTER → 2022-05-07 | Outpatient (CLI) | payer MEDICARE, SELFPAY ==
--- NOTE | 2022-05-07 07:49 | RAD_ITS ---
STUDY: X-RAY CHEST REASON FOR EXAM: Female, 76 years old. COPD Exacerbation TECHNIQUE: PA AP and lateral COMPARISON: 12/13/2021 FINDINGS: Interval placement of spinal stimulator. Leads of stimulator extends cephalad to the T7 level. Moderate degenerative change mid and lower thoracic spine. The lungs demonstrate new moderate lingular and left lower lobe atelectasis or infiltrate. There is no demonstrated pleural abnormality. Normal size heart. Normal mediastinum and fay. Normal visualized pulmonary arteries. Normal visualized aortic arch and descending thoracic aorta. Normal visualized thoracic spine. Bilateral reverse arthroplasties of the shoulders. There is no demonstrated abnormality of the visualized soft tissue structures of the upper abdomen. RAD/Chest PA and Lateral IMPRESSION: Interval placement of spinal stimulator. New moderate lingular and left lower lobe atelectasis or infiltrate. Bilateral shoulder reverse arthroplastties. Electronically Signed: Noah Badillo MD, VINNIE at 10:24 EDT ,
== END | disposition home or self-care (01) ==
LOC: RAD 07:48
PROVIDERS: PCP Internal Medicine; Referring Provider Internal Medicine Critical Care Medicine; Visit Provider Internal Medicine Critical Care Medicine
DX: J44.9 Chronic obstructive pulmonary disease, unspecified (principal)
CPT/HCPCS: 71046

== ENCOUNTER 2022-05-13 10:00 | Outpatient (RCR) | payer MEDICARE, SELFPAY ==
--- NOTE | 2022-04-23 13:09 | HP.PTEVAL ---
Patient's Visit Information EMILE KITCHEN is a 76 year old F referred to Physical Therapy by Dr. Adonay Eisenberg, with a diagnosis of LUMBAR SPINAL STENOSIS, SPONDYLOSIS WITH RADIC & INFLAMATORY SPONDYLOPATHY. Date of Evaluation: 04/23/22 Physical Therapist: Iona Alicea, PT, Cert MDT - Visit Plan Frequency: 2-3x /Week Duration: 4-6 Weeks Plan: *CHECK AUTH: RECORD # OF VISITS APPROVED AND EXPIRATION DATE. CHECK CODES APPROVED WITH POC*. *PRECAUTION - PATIENT REPORTS INTERMITTENT L HIP DISLOCATION WITH L SIDE BENDING*. NO HIP FLEXION > 90 DEG AND NO LEFT SIDEBENDING. CHECK STIMULATOR INCISION EACH VISIT UNTIL FULLY HEALED. POSTURE CORRECTION/STRENGTHENING, INSTRUCTION IN APPROPRIATE BODY MECHANICS AND ACTIVITY MODIFICATIONS. DLS WITH NEUTRAL SPINE. GAIT AND BALANCE TRAINING. HEP INSTRUCTION. - Subjective Work/Leisure: WORKING AT [employer] X 10 YEARS - 4 HOURS A DAY, 5 DAYS A WEEK. JUST STARTED BACK LAST FRIDAY. TOOK TIME OFF DUE TO L THR MAY 16 2022. WORKED UP UNTIL THE TIME OF THAT SURGERY. Present symptoms: HERE TODAY FOR THERAPY BECAUSE JUST HAD PAIN STIMULATOR PUT IN BACK BY DR. EISENBERG Mar OR . THE PAIN IS IN HER LEFT HIP. SHE REPORTS L4 AND L5 WERE PINCHED AND SHE COULDN'T LAY DOWN BUT THE STIMULATOR HAS TAKEN THAT PAIN AWAY. REPORTS THE THR SURGERY DID NOT HELP HER LEFT HIP PAIN - NOTHING HAS TAKEN THAT AWAY. SOME LOW BACK PAIN BUT IT IS MILD. SOMETIMES THE STIMULATOR SENDS SHOCKS DOWN RIGHT LEG AND TINGLING DOWN LEFT BUT WHEN SHE ADJUSTS IT THE LEG SX'S GO AWAY. Present since: CHRONIC. Pain Scale (MOST PAIN IS IN L HIP): WORST 7/10, LEAST 0/10. Currently: 4/10. Commenced as a result of: NO APPARENT REASON. Worse: SITTING, TOO MUCH WALKING, STANDING. Better: CHANGE OF POSITION. Disturbed sleep: NO. Previous history/Previous treatment: BACK SURGERY 1997 AND 2015. L THR APR 2021. PATIENT REPORTS THAT AFTER THE L THR SHE STARTED HAVING PAIN DOWN HER LEFT LEG. STATES SHE WAS PRESCRIBED PREDNISONE X 3 FOR HER L HIP AND LEG PAIN BUT IT DIDN'T HELP. SECOND OPINION ON L HIP FROM DR. DICKENS. DR. DICKENS REFERRED HER TO DR. EISENBERG. SHE REPORTS HER LEFT HIP POPS OUT AND GOES BACK IN ON ITS OWN. R THR 2013.FOLLOWED BY CUTTING OF RIGHT THIGH TENDON TO EASE PAIN. RIGHT HIP WEAKNESS EVER SINCE PER PATIENT. TRIED KASSY'S X 2 IN OCTOBER 2021 - WITHOUT BENEFIT. Treatment this episode: STIMULATOR PLACEMENT. Coughing/sneezing/straining: NEGATIVE. Gait: NO ASSISTIVE DEVICES NOW BUT ROLLATOR BEFORE STIMULATOR PLACEMENT. PATIENT REPORTS SHE STILL FEELS LIKE SHE WALKS LIKE A PENGUIN AND HER BALANCE IS OFF. WEARS LIFT IN LEFT SHOE. Bowel or Bladder Dysfunction: NO. Accidents: NO. Unexplained weight loss: NO. Imaging: MRI OF OF SPINE AND HIP LAST FALL. L HIP X-RAY APPROX OCTOBER [address] DICKENS. PMH/Recent major surgery: AFIB, CHF, H/O TIA'S - ON BLOOD THINNER SINCE 2007. NECK ARTHRITIS. ROBERT REVERSE TOTAL SHOULDERS. OTHER: IN JUL 2021. - Objective Sitting/Standing Posture: INCREASED KYPHOSIS. FH. SHD'S. RECUCED LORDOSIS. Active Correction of posture: NE. Other Observations: THIS PATIENT AMBULATES INDEP'LY INTO PT WITHOUT ANY ASSISTIVE DEVICES LIMPING ON THE LEFT LE AND WITH ROBERT LE EXTERNAL ROTATION AND INCREASED TRUNK FLEXION. ABLE TO TRANSFER SIT TO STAND INDEP WITHOUT UE ASSIST. L HIP ER IN SITTING AND STANDING. DIFFICULTY INITIATING GAIT AFTER SITTING AND STANDING. Sensory deficit: DECREASED LIGHT TOUCH SENSATION OF LEFT THIGH COMPARED TO RIGHT, OTHERWISE ROBERT LE LIGHT TOUCH SENSATION IS GROSSLY INTACT AND SYMMETRICAL. ROM deficit: ROBERT LE HIP FLEXOR, HIP ROTATOR, HS AND GASTROC SOLEUS COMPLEX TIGHTNESS. Motor deficit: L HIP STRONGER THAN RIGHT DUE TO R TENDON PROCEEDURE FOR PAIN AFTER R THR PER PATIENT REPORT. RIGHT LE: HIP 3/5, KNEE 4/5, ANKLE 5/5. LEFT LE: HIP 3+/5, KNEE 4/5, ANKLE 5/5. Lumbar mvmt loss: flex - MOD TO RENEE. ext -RENEE. R SG - RENEE. L SG - NT DUE TO PATIENT REPORTING IT POP'S HER HIP OUT. PATIENT DENIED INCREASED PAIN WITH LUMBAR ROM TESTING TODAY. Core strength: POOR. OTHER: INCISION FROM STIMULATOR PLACEMENT IS RED ON THE LATERAL ASPECT AND PATIENT REPORTS DR. EISENBERG IS AWARE. - Balance/Special Test Scores Oswestry Low Back Score: 11 - Goals Goal 1:: DECREASE LOW BACK PAIN Goal Time Frame: 4-6 Weeks Goal 2:: IMPROVE CORE STABILITY, STANDING AND WALKING FUNCTION Goal Time Frame: 4-6 Weeks Goal 3:: PATIENT WILL BE INDEP WITH A GYM AND/OR HOME EX PROGRAM FOR CONTINUED IMPROVEMENT ONCE FORMAL PHYSICAL THERAPY CONCLUDES. Goal Time Frame: 4-6 Weeks - Anticipated Interventions Patient/Client Instruction: Educate patient on: Condition, Plan of Care, Risk Factors For the Purpose of:: To improve self management Therapeutic Exercise to Include: Strength training, Balance training, Body mechanics, Postural training, Gait and locomotor training, Neuromotor development, Dynamic Lumbar Stabilization For the Purpose of:: To decrease pain, To improve muscle performance and motor function, To increase tolerance to activity/condition/position, To improve ability of physical actions for home/community/work/leisure, To improve gait and locomotor functions Thank you for the opportunity to evaluate your patient. For Medicare and Medicare HMO plans, please review the plan of care and approve it. It will need to be FAXED BACK to us at [phone] for Medicare purposes. For Medicare only, by signing this I certify the plan of care. Please let me know if there are questions or concerns regarding this plan of care. Physician Signature: Date:
--- NOTE | 2022-05-24 15:59 | HP.PTDCNRP_ITS ---
EMILE KITCHEN was seen in my office for initial evaluation on 04/23/22. The following Plan of Care was established for this patient: Initial Frequency: 2-3x /Week Initial Duration: 4-6 Weeks Patient/Client Instruction: Educate patient on: Condition, Plan of Care, Risk Factors For the Purpose of:: To improve self management Therapeutic Exercise to Include: Strength training, Balance training, Body mechanics, Postural training, Gait and locomotor training, Neuromotor development, Dynamic Lumbar Stabilization For the Purpose of:: To decrease pain, To improve muscle performance and motor function, To increase tolerance to activity/condition/position, To improve ability of physical actions for home/community/work/leisure, To improve gait and locomotor functions This patient was last seen in our office . Pertinent comments regarding their Physical therapy will appear below: This patient has not returned to Physical Therapy and is appropriate to return to MD for further follow-up as needed. This PT rec'd a note stating patient called and cancelled all remaining lizbeth'ts due to not being able to afford co- pay. At this point I will be discontinuing this patient from physical therapy. I wou ld be happy to see this patient again in the future if found appropriate by the physician. Thank you! Iona Alicea, PT, Cert MDT Balance/Gait/Functional tests - Balance/Special Test Scores Oswestry Low Back Score: 11
== END 2022-05-13 19:00 | disposition home or self-care (01) ==
LOC: PT 10:00
PROVIDERS: PCP Internal Medicine; Referring Provider Orthopaedic Surgery; Visit Provider Orthopaedic Surgery
DX: M48.061 Spinal stenosis, lumbar region without neurogenic claudication (principal); M47.26 Other spondylosis with radiculopathy, lumbar region; M46.96 Unspecified inflammatory spondylopathy, lumbar region
CPT/HCPCS: 97110; 97140; 97162

== ENCOUNTER 2022-06-19 15:00 | Outpatient (RCR) | payer MEDICARE, SELFPAY ==
--- NOTE | 2022-06-05 16:18 | HP.PTEVAL ---
Patient's Visit Information EMILE KITCHEN is a 76 year old F referred to Physical Therapy by JAYLENE Olivia with a diagnosis of Trochanteric bursitis L , spinal stenosis. Date of Evaluation: 06/05/22 Physical Therapist: Trenton Gibbons, JOHNT, OCS, CSCS - Visit Plan Frequency: 1x/Week Duration: 4-6 Weeks Plan: 2x/week for 4 weeks for... 1. rollout and stretch L ITB and quad. 2. teach gym based program for hip strength and core strength and work to I(pt is member). 3. include LB ROM exercises including extension to tolerance and postural focus. MH as needed. - Subjective Here for bursitis in L LE. Has had R YONG in the past. Now bending down to L bothers L hip. L YONG was 05/17 and it has hurt since and feel like muscle ripping from knee down and has pain lateral L hip. Had front approach on L and R. Had to have R tendon snipped though as it was too tight. doctor told her she has bursitis. Has stimulator in back for pain. it helped with nerve pain in leg that the stimulator helped with. Has L45 pinched nerve. pt thinks the pain is from YONG. Same pain now as prior to YONG. Can only walk now due to stimulator. 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 Not more painful after work but tired. Has been back to work for 2 weeks and prior for 6 weeks. Sleep is not great but in july and is alone. Basic ADLs are getting done but slow and can be painful. No regular exercises. Has cane and walker buyt does not use, no falls. - Pain L lateral hip Pain Intensity (Out of 10): 6 Pain Intensity Range: 1, 10 Comment: down l leg, sometimes keeps her from walking. - Objective Walks I hunched over and kyphotic in T/S and B hips externall rotated, mild l trendelenberg. I gait and I transfers today. C/O pain elevating L hip to trasnition into bed. Lumbar AROM ext is max limited and painful L posterior hip, B SB max limited and L >R painful L hip lateral. Flexion not painful. Max tender over L GT area into ITB, very tight feeling. Hips externally rotate in supine on bed. Has goor rotation ROM in B hips with some mild pain IR on L. abduction is WFL B. extension is max limited B with soft tissue restriction L >R extension causing hip pain especially with knee flexion. Tightness obvious in quad B and ITB L>R, HS mod tight B. - slump. - SLR. ankle aROM WFL, knee AROM B WFL. reflexes 2/3 B patella and achilles today. Sensation LE WNL to gross light touch. incisions are anterior at hips and without issues. Strength hip rotations B 3 in IR and 3+ ER. abduction 3+ B, extension 3 B, flexion painful on L and 3 vs 3+ on R. knee flexiona dn extension 4- B without pain. Ankle strength 4 without pain. + L FADDIR, - PASTOR - Balance/Special Test Scores Lower Extremity Functional Score: 20 - Goals Goal 1:: patient I with HEP for LE stretch and gym program for core and general strength Goal Time Frame: 4-6 Weeks Goal 2:: Pt feel L hip pain 75% better at 2/10 at worst Goal Time Frame: 4-6 Weeks Goal 3:: LEFS score 40 Goal Time Frame: 4-6 Weeks Goal 4:: Work without increasing pain6 hours shifts Goal Time Frame: 4-6 Weeks - Rehabilitation Potential Physical Therapy Diagnosis: weakness and pain limiting funciton Rehabilitation Potential: Questionable - Anticipated Interventions Patient/Client Instruction: Educate patient on: Condition, Plan of Care For the Purpose of:: To decrease pain, To increase ROM, To improve nutrient delivery to tissue, To improve muscle performance and motor function Therapeutic Exercise to Include: Strength training, Postural training, Flexibilty training, Passive ROM, Active ROM, Dynamic Lumbar Stabilization For the Purpose of:: To decrease pain, To increase ROM, To improve nutrient delivery to tissue, To improve muscle performance and motor function, To increase tolerance to activity/condition/position, To improve ability of physical actions for home/community/work/leisure, To improve ability to perform tasks related to life management Manual Therapy Techniques to Include: Mobilization, Passive ROM, Soft tissue mobilization For the Purpose of:: To decrease pain, To increase ROM Thermo therapy (hot pack): Yes For the Purpose of:: To decrease pain Thank you for the opportunity to evaluate your patient. For Medicare and Medicare HMO plans, please review the plan of care and approve it. It will need to be FAXED BACK to us at [phone] for Medicare purposes. For Medicare only, by signing this I certify the plan of care. Please let me know if there are questions or concerns regarding this plan of care. Physician Signature: Date:
--- NOTE | 2022-08-08 17:43 | HP.PTDCNRP_ITS ---
EMILE KITCHEN was seen in my office for initial evaluation on 06/05/22. The following Plan of Care was established for this patient: Initial Frequency: 1x/Week Initial Duration: 4-6 Weeks Patient/Client Instruction: Educate patient on: Condition, Plan of Care For the Purpose of:: To decrease pain, To increase ROM, To improve nutrient delivery to tissue, To improve muscle performance and motor function Therapeutic Exercise to Include: Strength training, Postural training, Flexibilty training, Passive ROM, Active ROM, Dynamic Lumbar Stabilization For the Purpose of:: To decrease pain, To increase ROM, To improve nutrient d elivery to tissue, To improve muscle performance and motor function, To increase tolerance to activity/condition/position, To improve ability of physical actions for home/community/work/leisure, To improve ability to perform tasks related to life management Manual Therapy Techniques to Include: Mobilization, Passive ROM, Soft tissue mobilization For the Purpose of:: To decrease pain, To increase ROM Thermo therapy (hot pack): Yes For the Purpose of:: To decrease pain This patient was last seen in our office 06/19/22. Pertinent comments regarding their Physical therapy will appear below: Pt seen for one visit of POC after initial evaluation, she did not schedule or attend any further visits. At this point, it has been over 6 weeks and I will discontinue due to nonattendance. At this point I will be discontinuing this patient from physical therapy. I would be happy to see this patient again in the future if found appropriate by the physician. Thank you! Trenton Gibbons, DPT, OCS, CSCS Balance/Gait/Functional tests - Balance/Special Test Scores Lower Extremity Functional Score: 20
== END 2022-06-19 19:00 | disposition home or self-care (01) ==
LOC: PT 15:00
PROVIDERS: PCP Internal Medicine; Referring Provider Physician Assistant; Visit Provider Physician Assistant
DX: M70.62 Trochanteric bursitis, left hip (principal); M48.061 Spinal stenosis, lumbar region without neurogenic claudication; M47.26 Other spondylosis with radiculopathy, lumbar region
CPT/HCPCS: 97110; 97162

== ENCOUNTER → 2022-11-01 | Outpatient (CLI) | payer MEDICARE, SELFPAY | END | disposition home or self-care (01) | PROVIDERS: PCP Internal Medicine; Referring Provider Physician Assistant Medical; Visit Provider Physician Assistant Medical | DX: I48.0 Paroxysmal atrial fibrillation (principal) | CPT/HCPCS: 93225; 93226; A4216 ==

== ENCOUNTER → 2022-11-08 | Outpatient (CLI) | payer MEDICARE, SELFPAY ==
--- NOTE | 2022-11-13 14:51 | STRESSREP_ITS ---
Stress Test Report Date: 11/08/2022 Procedure: Pharmacologic stress nuclear imaging study Indications: Chest pain Consent: Per the patient Procedure: The patient underwent pharmacologic (Regadenoson 0.4mg ) evaluation with a peak heart rate of 105 beats per minute (72%predicted maximal heart rate) and a peak blood pressure of 122/64 mmHg. The baseline ECG demonstrated atrial fibrillation. The peak pharmacologic ECG demonstrated no ischemic change. There were no cardiac dysrhythmias pretest, during pharmacologic infusion, or recovery. There was no complaint of chest discomfort during pharmacologic infusion or recovery. The patient was injected with 11.3 millicuries of technetium 99m Cardiolite and subsequently rest SPECT Cardiolite nuclear imaging was obtained in the horizontal long, vertical long, and short axis views. The patient underwent pharmacologic (Regadenoson) evaluation. The patient was injected with 33.9 millicuries of technetium 99m Cardiolite and subsequently stress SPECT Cardiolite nuclear imaging was obtained in the horizontal long, vertical long, and short axis views. A gated Cardiolite study at peak stress was obtained. The examination was stopped secondary to completion of protocol. Rest and stress SPECT Cardiolite nuclear imaging status post realignment, normalization, and attenuation correction demonstrate no fixed or reversible perfusion defects. There is end systolic thickening and brightening. The gated Cardiolite study demonstrates myocardial thickening and inward wall motion. The reported LVEF is 74%. Impression: 1. Pharmacologic (Regadenoson) evaluation 2. Peak pharmacologic ECG with no ischemic changes. 3. There were no cardiac dysrhythmias pretest, during pharmacologic infusion, or recovery. 5. No fixed or reversible perfusion defects. 6. The gated Cardiolite study reports an LVEF of 74%. This note was generated with [employer] software. It may contain incorrect words, spelling, and punctuation that were not noted in checking the note before signing.
== END | disposition home or self-care (01) ==
PROVIDERS: PCP Internal Medicine; Visit Provider Physician Assistant Medical
DX: R07.9 Chest pain, unspecified (principal)
CPT/HCPCS: 78452; 93017; A9500; A4216; J2785

== ENCOUNTER 2023-01-01 09:06 | Emergency (ER) | payer MEDICARE, SELFPAY ==
[2023-01-01] VITALS (13 sets, daily range): BP systolic 104–147; BP diastolic 60–93; PULSE 63–142; RESP 18–28; TEMP 36.4; O2SAT 85–977; BMI 28.1
--- NOTE | 2023-01-01 09:14 | EKG12_ITS ---
Test Reason : SOB Blood Pressure : / mmHG Vent. Rate : 124 BPM Atrial Rate : 000 BPM P-R Int : 000 ms QRS Dur : 076 ms QT Int : 336 ms P-R-T Axes : 000 077 -42 degrees QTc Int : 482 ms Atrial fibrillation with rapid ventricular response Nonspecific ST and T wave abnormality Abnormal ECG Confirmed by TAWNYA HAGEN, ESCOBAR ([id number]), acquisition editor OTILIA CARVALHO ([id number]) on 01/03/2023 8:05:29 AM Referred By: Confirmed By:ESCOBAR BOWLING MD
--- NOTE | 2023-01-01 09:20 | EDS_ITS ---
HPI History of Present Illness Chief Complaint: Shortness of Breath Detail of Chief Complaint: Began earlier this morning. Patient had been doing well prior. Informant: patient and family Onset/Context/Timing Onset: Today and Hours Context: gradual Timing: Continuous Current Severity: Moderate Maximum Severity: Moderate Worsened by: Exertion and Lying flat Relieved by: Rest Associated Symptoms Chest Pain: Positive for None Narrative Narrative: 77-year-old female extensive past medical history of A-fib on Coumadin, CHF, hypertension, valvular heart disease, COPD and TIAs. Patient states she had been doing well last several days. She actually worked yesterday. She woke up this morning short of breath and mildly confused. She is typically on 2 L of oxygen at home. She has had chills but no fever. She has had shoulder discomfort. She denies any abdominal pain. No vomiting or diarrhea. No melena. Has had episodes like this before with CHF. 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 Nonrheumatic aortic (valve) insufficiency Nonrheumatic tricuspid valve regurgitation Osteoarthritis Paroxysmal atrial fibrillation Persistent atrial fibrillation Pneumonia PUD (peptic ulcer disease) Pulmonary hypertension Small bowel obstruction SOB (shortness of breath) on exertion Spinal cord stimulator status 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 classification TIA (transient ischemic attack) Home Medications calcium citrate 200 mg calcium-vitamin D3 6.25 mcg (250 unit) tablet 1 ea PO DAILY SUPPLEMENT 08/12/14 [History Last Taken 09/25/20] zolpidem 10 mg tablet 10 mg PO QHS PRN sleep 03/13/18 [History Last Taken 09/24/20] albuterol sulfate 90 mcg/actuation aerosol inhaler 2 puff inhalation Q4H PRN shortness of breath or wheezing #1 device 08/19/19 [Rx Last Taken 1 Week Ago ~09/18/20] gabapentin 300 mg capsule 300 mg PO BID 09/15/20 [History Last Taken 09/24/20] acetaminophen 500 mg tablet 1,000 mg PO DAILY PRN PRN Pain 1-10 Or Fever 09/25/20 [History Last Taken 09/22/20] coenzyme Q10 100 mg capsule 100 mg PO DAILY SUPPLEMENT 09/25/20 [History Last Taken 09/25/20] levothyroxine 25 mcg tablet 25 mcg PO DAILY THYROID 09/25/20 [History Last Taken 09/25/20] magnesium 30 mg tablet 30 mg PO DAILY SUPPLEMENT 09/25/20 [History Last Taken 09/24/20] multivitamin with minerals 1 tab PO DAILY SUPPLEMETN 09/25/20 [History Last Taken 09/25/20] warfarin 1 mg tablet 0.5 mg PO MOWEFR BLOOD THINNER 10/19/21 [History Last Taken Unknown] warfarin 1 mg tablet 1 mg PO SUTUTHSA 10/19/21 [History Last Taken Unknown] atenolol 25 mg tablet 25 mg PO BID HEART #60 tabs 10/22/21 [Rx Last Taken Unknown] potassium chloride 20 mEq tablet,extended release 20 meq PO BID #90 tabs 11/06/21 [Rx Last Taken Unknown] diltiazem HCl 120 mg capsule,extended release 24 hr 120 mg PO DAILY #60 caps 12/14/21 [Rx Last Taken Unknown] cephalexin 500 mg capsule 500 mg PO DAILY 03/15/22 [History Last Taken Unknown] pantoprazole 40 mg tablet,delayed release (Protonix) 40 mg PO DAILY 04/22/22 [History Last Taken Unknown] albuterol sulfate 90 mcg/actuation aerosol inhaler 2 puff inhalation Q4H PRN shortness of breath or wheezing #8.5 grams 05/07/22 [Rx Last Taken Unknown] fluticasone propionate 50 mcg/actuation nasal spray,suspension (Flonase Allergy Relief) 2 spray intranasal QDAY #16 grams 05/07/22 [Rx Last Taken Unknown] fluticasone fur. 100 mcg-umeclid 62.5 mcg-vilant 25 mcg inhalat.powder 1 inh inhalation DAILY SOB #3 ea 11/06/22 [Rx Last Taken Unknown] furosemide 40 mg tablet 40 mg PO BID Swelling #60 tabs 12/10/22 [Rx Last Taken Unknown] Allergy/AdvReac Type Severity Reaction Status Date / Time cortisone Allergy a.fib Verified 01/01/23 09:06 hydrocodone [From Vicodin] AdvReac Severe Vomiting Verified 01/01/23 09:06 Fetmxxu-NCO-QxT Reductase AdvReac Severe Myalgias Verified 01/01/23 09:06 Inhibitor [Aagotmx-Rbb-Hur Reductase Inhibitor] adhesive AdvReac Rash if on Verified 01/01/23 09:06 for extended period of time Family History Father CVA (cerebral vascular accident) Mother CVA (cerebral vascular accident) Sister CAD (coronary artery disease) Atrial fibrillation Sister COPD (chronic obstructive pulmonary disease) Surgical History H/O left wrist surgery History of back surgery History of left hip replacement History of right hip replacement History of rotator cuff surgery S/P foot surgery, right S/P insertion of spinal cord stimulator Social History pets and animals: Yes pets and animals: dog(s) Smoking Status: Former smoker Tobacco: How many years used: 36 how long ago did patient quit smoking: Patient quit in 2000 alcohol intake: current alcohol intake frequency: a few times a week Alcohol type: beer details: rare substance use type: does not use ROS ROS ED ROS Narrative Shortness of breath. Palpitations. Shoulder pain. Review of Systems ROS Unobtainable: Denies due to encephalopathy Constitutional Constitutional ED: Reports chills; Denies fever(s) Eyes Eyes: Denies blurry vision ENT ENT ED: Denies ear pain Cardiovascular Cardiovascular: Reports palpitations and racing heartbeat; Denies chest pain Respiratory/Chest Respiratory/Chest: Reports dyspnea and dyspnea on exertion; Denies cough Gastrointestinal Gastrointestinal: Denies abdominal pain, constipation, diarrhea, melena, nausea or vomiting Genitourinary Genitourinary ED: Denies dysuria or hematuria Musculoskeletal Musculoskeletal: Denies arthralgias Integumentary Denies abscess Neurologic Neurologic: Denies headache(s) Psychiatric Psychiatric: Denies anxiety or depression Endocrine Endocrinology: Denies cold intolerance Hematologic/Lymphatic Hematologic/Lymphatic: Reports easy bleeding Allergic/Immunologic Allergic/Immunologic ED: Denies mouth swelling EXAM Physical Exam Narrative Exam Narrative: 77-year-old female vital signs show A-fib RVR heart rate 133 on the monitor. Pulse ox is in the high 80s on 2 L. H EENT exam unremarkable. Neck nontender no JVD. Lungs clear to auscultation bilaterally. Heart A-fib RVR rate about 135 no murmur appreciated. Chest wall nontender. Abdomen soft nontender. Moving all 4 extremities. Calves are nontender without edema or cords. Neurologically she is awake and alert. No focal motor deficits. Answering questions following commands. Const Vital Signs: 01/01/23 09:07 01/01/23 09:12 01/01/23 09:17 Temperature 97.6 F L Temperature Source Temporal Pulse Rate 133 H 142 H Respiratory Rate 22 H 27 H Respiratory Effort Short of Breath Labored Accessory Muscle Use Respiratory Depth Shallow Blood Pressure 141/93 H 147/80 H Blood Pressure Mean 109 102 Pulse Ox 96 97 Oxygen Delivery Method Nasal Cannula Nasal Cannula Nasal Cannula Oxygen Flow Rate (L/min) 3 1 3 01/01/23 09:19 01/01/23 09:26 01/01/23 09:28 Temperature Temperature Source Pulse Rate 128 H 120 H Respiratory Rate Respiratory Effort Respiratory Depth Blood Pressure Blood Pressure Mean Pulse Ox 977 95 Oxygen Delivery Method Nasal Cannula Nasal Cannula Oxygen Flow Rate (L/min) 3 3 01/01/23 09:28 01/01/23 09:50 01/01/23 10:17 Temperature Temperature Source Pulse Rate 85 79 82 Respiratory Rate 18 28 H Respiratory Effort Respiratory Depth Blood Pressure 104/60 123/77 H Blood Pressure Mean 74 92 Pulse Ox 93 94 Oxygen Delivery Method Nasal Cannula Nasal Cannula Oxygen Flow Rate (L/min) 3 2 01/01/23 10:32 01/01/23 11:08 01/01/23 12:20 Temperature Temperature Source Pulse Rate 91 63 81 Respiratory Rate 18 19 H 20 H Respiratory Effort Respiratory Depth Blood Pressure 141/84 H 117/64 Blood Pressure Mean 103 81 Pulse Ox 95 94 97 Oxygen Delivery Method Room Air Nasal Cannula Oxygen Flow Rate (L/min) 2 Positive well nourished and well developed; Negative for obese, cachectic, contractures or unkempt General Appearance ED: well developed; Negative for unkempt, cachectic, contractures, NAD or pallor Nutritional Appearance: Negative for cachectic or obese HEENT Reports moist mucous membranes; Denies dry mucous membranes atraumatic; Negative for trauma or tenderness Mouth ED: No dry mucous membranes Mouth: No dry mucous membranes Eyes PERRL and EOMs intact bilaterally General Eye ED: Negative for pale conjunctiva or scleral icterus Neck no lymphadenopathy, supple, no meningeal signs and no JVD General: Negative for tenderness Lymph Lymphatic: Negative for other Chest Wall Chest: Negative for other Resp normal respiratory effort and clear to auscultation bilaterally Effort and Inspection: Negative for pain with movement Auscultation: Negative for rales, rhonchi or wheezes Cardio S1 normal heart sound, S2 normal heart sound and no murmurs; Negative for regular rate or regular rhythm Cardio Narrative: A-fib RVR rate about 135. Rate: tachycardic Rhythm: abnormal rhythm GI non-tender, non-distended and no masses Inspection: Negative for other Palpation: soft; Negative for tender or guarding Bladder / Kidney Exam: No other Back/Spine no CVA tenderness and normal to inspection General Back: Negative for CVA tenderness or tenderness Extremity normal to inspection General Extremety ED: Negative for edema or tenderness General Extremity: Negative for edema Neuro oriented x3 and CN's II-XII intact bilaterally Sensorium / Orientation: alert, oriented to person and oriented to place; Negative for oriented to time, orientation impaired or confused Speech: speech normal Motor Exam: strength 5/5 throughout Psych mental status grossly normal Appearance: Negative for unkempt Attitude: No agitated Mood & Affect: Negative for depressed, anxious or tearful Thought Process: normal thought process Skin no wounds and skin turgor normal General Skin Exam: Negative for jaundice or pallor Lesions: no lesions Rashes: no rashes Trauma: Negative for abrasion or laceration MDM MDM MDM Narrative Medical decision making narrative: 77-year-old female A-fib RVR with shortness of breath that may or may not be secondary to CHF. She undergo cardiac work-up. PT/INR due to her being on Coumadin. She will be given a dose of IV Cardizem to see if we can slow and better control her heart rate. Repeat exam at 9:53 AM patient improving. Heart rate is currently 80 remains in A-fib after the IV Cardizem. I have gone over her initial chest x-ray and initial labs and I will back yet. She will be given IV Lasix. Patient ambulated shortly after being given the Lasix and pulse ox stayed in the mid 90s on her normal 2 L of oxygen. Nurse states she did well. Patient doing well on repeat exam at 1220. She was given Lasix and has urinated twice. She is feeling fine she is comfortable being discharged home with outpatient follow-up she has appointment see her doctor next week. She is on oxygen at home. Currently her vital signs are stable and her heart rates in the 90s. She remains in A-fib. Lab Data Attestation: I reviewed the patient's lab results. Lab results narrative: CBC shows a white count 6.9. H&H 12 and 37. Platelets 212. Patient is on Coumadin her INR is 2.2. Chest x-ray looks like CHF. Chemistries show a gap of 6. BUN and creatinine 27 and 1. Glucose 145. Troponin is normal at 8. DIRECTOR OF OUTPATIENT SERVICES is elevated at 895. Labs: Laboratory Results - last 24 hr 01/01/23 01/01/23 01/01/23 09:25 09:25 09:25 WBC 6.9 RBC 3.78 L Hgb 12.3 Hct 37.8 MCV 100.0 H MCH 32.5 H MCHC 32.5 RDW Std Deviation 47.0 H RDW Coeff of Nicki 12.9 Plt Count 212 MPV 10.3 Immature Gran % (Auto) 0.400 Neut % (Auto) 76.7 H Lymph % (Auto) 14.6 L [place] % (Auto) 8.1 Eos % (Auto) 0.1 Baso % (Auto) 0.1 Absolute Neuts (auto) 5.3 Absolute Lymphs (auto) 1.01 Nucleated RBC % 0 PT 25.0 H INR 2.2 Sodium 140 Potassium 4.1 Chloride 108 H Carbon Dioxide 26.0 Anion Gap 6 BUN 27 H Creatinine 1.00 Estim Creat Clear Calc 36.68 Est GFR (MDRD) Af Amer 69 Est GFR (MDRD) Non-Af 57 L BUN/Creatinine Ratio 27.0 H Glucose 145 H Calcium 10.0 Troponin I High Sens 8 B-Natriuretic Peptide 01/01/23 09:25 WBC RBC Hgb Hct MCV MCH MCHC RDW Std Deviation RDW Coeff of Nicki Plt Count MPV Immature Gran % (Auto) Neut % (Auto) Lymph % (Auto) [place] % (Auto) Eos % (Auto) Baso % (Auto) Absolute Neuts (auto) Absolute Lymphs (auto) Nucleated RBC % PT INR Sodium Potassium Chloride Carbon Dioxide Anion Gap BUN Creatinine Estim Creat Clear Calc Est GFR (MDRD) Af Amer Est GFR (MDRD) Non-Af BUN/Creatinine Ratio Glucose Calcium Troponin I High Sens B-Natriuretic Peptide 895.3 H Radiography Chest X-Ray - ED: 1 View, Read by ED Physician, Normal, Heart, Mediastinum, Bony Structures and CHF Diagnostic Testing: Clinical Impression(s) from Imaging Studies Chest X-Ray 01/01/23 09:40 IMPRESSION: Increased markings with areas of confluence in the lung bases more prominent on the left side with blunting of the left costophrenic angle. Follow-up recommended. Electronically Signed: Gaurav Trent MD at 10:04 EDT , Chest x-ray, portable, single view shows normal cardiac silhouette mediastinum. Appears to have CHF with pulmonary edema bilaterally. Rhythm Strip Rhythm Strip: A-fib Rate: 124 Ectopy: None EKG Initial EKG: Attestation: I personally reviewed and interpreted this EKG as follows: Interpretation: No Acute Injury Pattern and Atrial Fibrillation Comments: A-fib RVR rate of 124. No acute signs of CT or ischemia. Discharge Plan Triage Chief Complaint: Shortness of Breath ED Provider: Juan iWlder Dx/Rx/DC Orders Clinical Impression: A-fib, CHF (congestive heart failure), Chronic anticoagulation Instructions: AFib Prescriptions: No Action gabapentin 300 mg capsule 300 mg PO BID albuterol sulfate 90 mcg/actuation HFA aerosol inhaler 2 puff inhalation Q4H PRN (Reason: shortness of breath or wheezing) Qty: 1 6RF Rx Instructions: administer with spacer pantoprazole [Protonix] 40 mg tablet,delayed release (DR/EC) 40 mg PO DAILY albuterol sulfate 90 mcg/actuation HFA aerosol inhaler 2 puff inhalation Q4H PRN (Reason: shortness of breath or wheezing) Qty: 8.5 6RF Rx Instructions: administer with spacer fluticasone propionate [Flonase Allergy Relief] 50 mcg/actuation spray,suspension 2 spray intranasal QDAY Qty: 16 3RF Rx Instructions: administer into each nostril cephalexin 500 mg capsule 500 mg PO DAILY quyumprygbc-isumryisp-fflfskyn 100-62.5-25 mcg blister with device 1 inh INHALATION DAILY Qty: 3 3RF zolpidem 10 mg tablet 10 mg PO QHS PRN (Reason: sleep) Label Comments: SLEEPING PILL calcium citrate-vitamin D3 1 EACH tablet 1 ea PO DAILY Label Comments: supplement acetaminophen 500 MG tablet 1,000 mg PO DAILY PRN PRN (Reason: Pain 1-10 Or Fever) multivitamin with minerals 1 EACH tablet 1 tab PO DAILY magnesium 30 MG tablet 30 mg PO DAILY coenzyme Q10 100 MG capsule 100 mg PO DAILY levothyroxine 25 MCG tablet 25 mcg PO DAILY warfarin 1 mg tablet 0.5 mg PO Protocol: Dose Management Condition: Friday Dose/Route: 1 mg Instruction: 1 x 1 mg tablet Condition: Friday Dose/Route: 0 mg Instruction: 0 tablets Condition: Friday Dose/Route: 0.5 mg Instruction: 0.5 x 1 mg tablets Condition: Friday Dose/Route: 1 mg Instruction: 1 x 1 mg tablet Condition: Dose/Route: 0.5 mg Instruction: 0.5 x 1 mg tablets Condition: Friday Dose/Route: 1 mg Instruction: 1 x 1 mg tablet Condition: Friday Dose/Route: 0.5 mg Instruction: 0.5 x 1 mg tablets Protocol Text: Adjustment Start Date: Friday05/06/22 INR Value: 3.6 INR Date: 05/06/22 Recheck Date: 05/13/22 Rx Instructions: Managed by Dr. Beck warfarin 1 mg tablet 1 mg PO [facility] Protocol: Dose Management Condition: Friday Dose/Route: 1 mg Instruction: 1 x 1 mg tablet Condition: Friday Dose/Route: 0 mg Instruction: 0 tablets Condition: Friday Dose/Route: 0.5 mg Instruction: 0.5 x 1 mg tablets Condition: Friday Dose/Route: 1 mg Instruction: 1 x 1 mg tablet Condition: Dose/Route: 0.5 mg Instruction: 0.5 x 1 mg tablets Condition: Friday Dose/Route: 1 mg Instruction: 1 x 1 mg tablet Condition: Friday Dose/Route: 0.5 mg Instruction: 0.5 x 1 mg tablets Protocol Text: Adjustment Start Date: Friday05/06/22 INR Value: 3.6 INR Date: 05/06/22 Recheck Date: 05/13/22 Rx Instructions: Managed by Dr. Beck atenolol 25 mg tablet 25 mg PO BID Qty: 60 11RF potassium chloride 20 mEq tablet extended release 20 meq PO BID Qty: 90 3RF diltiazem HCl 120 mg capsule,extended release 24hr 120 mg PO DAILY Qty: 60 11RF furosemide 40 mg tablet 40 mg PO BID Qty: 60 11RF Primary Care Provider: Tasneem Beck Referrals: Tasneem Beck MD [Primary Care Provider] - Keep [facility] appointment Activity Restrictions/Additional Instructions: Follow-up with your doctor next week. You had A-fib with accelerated rate today. He has small amount of fluid in your lungs. The Lasix should help with that. Return if you are feeling worse otherwise follow-up with your doctor appointment next week. Disposition Disposition: Home, Self Care
[2023-01-01] MEDS: dilTIAZem 25 MG/5 ML Vial IV BOLUS (09:25)
[2023-01-01 09:36] LABS: Absolute Lymphocyte Count 1.01 X10^3/uL (0.83-4.51); Absolute Neutrophil Count 5.3 X10^3/uL (2.0-7.7); Basophil# 0.01 X10^3/uL; Basophil% 0.1 % (0-1); Eosinophil# 0.01 X10^3/uL; Eosinophils% 0.1 % (0-5); Hematocrit 37.8 % (37-47); Hemoglobin 12.3 g/dL (12.0-15.0); Lymphocyte # 1.01 X10^3/ul (0.83-4.51); Lymphocyte % 14.6 % (19-41); Mean Corp Hgb Conc 32.5 g/dL (32-36); Mean Corpuscular Hgb 32.5 pg (27.0-32.0); Mean Platelet Vol. 10.3 fl (6.2-12.0); Monocyte# 0.56 X10^3/uL; Monocyte% 8.1 % (0-10); NRBC Flagged by Analyzer 0 % (0-5); Neutrophil # 5.32 X10^3/uL (2.7-7.7); Neutrophil % 76.7 % (47-70); Platelet Count 212 K/mm3 (150-450); RBC Distribution Width CV 12.9 % (11.6-14.6); Red Blood Count 3.78 M/mm3 (4.2-5.4); White Blood Count 6.9 K/mm3 (4.4-11.0)
--- NOTE | 2023-01-01 09:40 | RAD_ITS ---
STUDY: X-RAY CHEST REASON FOR EXAM: Female, 77 years old. Chest pain. TECHNIQUE: Single AP portable view of the chest. COMPARISON: Comparison is made with prior examination dated May 07, 2022. FINDINGS: EKG lead transversely. A spinal cord stimulator device is seen with the tip of the electrodes in the region of the T7 vertebrae. Increased markings at the lung bases slightly more prominent at the left base suggestive of possible bibasilar infiltrates. This has improved as compared to prior study. Blunting of the left costophrenic angle. Normal size heart. Normal mediastinum and fay. Normal visualized pulmonary arteries. There is atherosclerotic calcification of the aortic arch with tortuosity. There are diffuse degenerative changes of the visualized thoracic spine. Bilateral reverse shoulder replacement. There is no demonstrated abnormality of the visualized soft tissue structures of the upper abdomen. RAD/Chest 1 View (Portable) IMPRESSION: Increased markings with areas of confluence in the lung bases more prominent on the left side with blunting of the left costophrenic angle. Follow-up recommended. Electronically Signed: Gaurav Trent MD at 10:04 EDT ,
[2023-01-01 09:43] LABS: International Normalized Ratio 2.2
[2023-01-01 09:59] LABS: Anion Gap 6 (5-15); BUN 27 mg/dL (7-18); Chloride 108 mmol/L (98-107); EST Glomerular Filtration Rate 57 mL/min (>60); Est Glom Filt Rate - Afr Amer 69 mL/min (>60); Estimated Creatinine Clearance 36.68 ml/min; Glucose 145 mg/dL (74-106); Potassium 4.1 mmol/L (3.5-5.1); Sodium Level 140 mmol/L (136-145); Troponin-I HS 8 pg/mL (3.0-54.0)
[2023-01-01 10:10] LABS: BNP,B-Type NATRIURETIC PEPTIDE 895.3 pg/mL (0-100)
[2023-01-01] MEDS: Furosemide 20 MG/2 ML VIAL IV (10:19)
== END 2023-01-01 12:35 | disposition home or self-care (01) ==
PROVIDERS: Emergency Provider Emergency Medicine; PCP Internal Medicine; Visit Provider Emergency Medicine
DX: I48.0 Paroxysmal atrial fibrillation (principal); J44.9 Chronic obstructive pulmonary disease, unspecified; I50.9 Heart failure, unspecified; I11.0 Hypertensive heart disease with heart failure; Z87.891 Personal history of nicotine dependence; Z86.73 Personal history of transient ischemic attack (TIA), and cerebral infarction without residual deficits; Z79.899 Other long term (current) drug therapy; Z79.01 Long term (current) use of anticoagulants
CPT/HCPCS: 71045; 80048; 83880; 84484; 85025; 85610; 93005; 96374; 96375; 99283; A4216; J1940

== ENCOUNTER → 2023-01-29 | Outpatient (CLI) | payer MEDICARE, SELFPAY ==
[2023-01-29 16:07] LABS: EXAGEN MAILED SPECIMEN
[2023-01-29 17:42] LABS: Color, Urine Yellow (Yellow); Glucose, Dipstick Normal (Normal); Ketone-Dipstick Negative (Negative); Leukocyte Esterase-Dipstick 100 /ul (Negative); Nitrite-Dipstick Negative (Negative); Occult Blood-Urine Negative /ul (Negative); Protein-Dipstick Negative (Negative); Specific Gravity, Urine 1.015 (1.002-1.030); Urine Bilirubin Dipstick Negative (Negative); Urine Clarity Sl. Cloudy (Clear); Urine Urobilinogen Normal (Normal)
[2023-01-29 17:53] LABS: Absolute Lymphocyte Count 2.17 X10^3/uL (0.83-4.51); Absolute Neutrophil Count 5.5 X10^3/uL (2.0-7.7); Basophil# 0.03 X10^3/uL; Basophil% 0.3 % (0-1); Eosinophil# 0.16 X10^3/uL; Eosinophils% 1.8 % (0-5); Hematocrit 37.5 % (37-47); Hemoglobin 12.2 g/dL (12.0-15.0); Lymphocyte # 2.17 X10^3/ul (0.83-4.51); Lymphocyte % 25.1 % (19-41); Mean Corp Hgb Conc 32.5 g/dL (32-36); Mean Corpuscular Hgb 32.3 pg (27.0-32.0); Mean Corpuscular Volume 99.2 fL (81-99); Mean Platelet Vol. 10.5 fl (6.2-12.0); Monocyte# 0.77 X10^3/uL; Monocyte% 8.9 % (0-10); NRBC Flagged by Analyzer 0 % (0-5); Neutrophil # 5.51 X10^3/uL (2.7-7.7); Neutrophil % 63.7 % (47-70); Platelet Count 301 K/mm3 (150-450); RBC Distribution Width CV 12.8 % (11.6-14.6); RBC Distribution Width SD 46.6 fl (35.1-43.9); Red Blood Count 3.78 M/mm3 (4.2-5.4); White Blood Count 8.7 K/mm3 (4.4-11.0)
[2023-01-29 18:35] LABS: ALB/GLOB Ratio 1.1 RATIO (0.9-2.4); AST(SGOT) 25 U/L (15-37); Alanine Aminotransfer ALT/SGPT 57 U/L (13-56); Albumin, Serum 3.9 g/dL (3.2-5.0); Alkaline Phosphatase 84 U/L (45-117); Anion Gap 8 (5-15); BUN 41 mg/dL (7-18); BUN/Creat Ratio 34.5 RATIO (10-20); Calcium,Total 10.2 mg/dL (8.5-10.1); Chloride 105 mmol/L (98-107); Creatinine, Serum 1.19 mg/dL (0.55-1.02); EST Glomerular Filtration Rate 47 mL/min (>60); Est Glom Filt Rate - Afr Amer 57 mL/min (>60); Globulin 3.5 g/dL (2.2-4.2); Glucose 106 mg/dL (74-106); Protein, Total 7.4 g/dL (6.4-8.2); Sodium Level 140 mmol/L (136-145)
[2023-01-29 18:59] LABS: Hepatitis B Surface Antibody Non-Reactive; Hepatitis B Surface Antigen Non-Reactive (Nonreactive); Hepatitis C Antibody Non-Reactive (Nonreactive)
[2023-01-29 19:31] LABS: Protein, Urine (Random) 9.4 mg/dL (<11.9); Protein:Creat Ratio 145 mg/g CRE (0-200)
== END | disposition home or self-care (01) ==
PROVIDERS: PCP Internal Medicine; Referring Provider Internal Medicine Rheumatology; Visit Provider Internal Medicine Rheumatology
DX: M06.4 Inflammatory polyarthropathy (principal); R76.8 Other specified abnormal immunological findings in serum; M19.041 Primary osteoarthritis, right hand
CPT/HCPCS: 36415; 80053; 81002; 82570; 84156; 85025; 86706; 86803; 87340

== ENCOUNTER → 2023-03-25 | Outpatient (CLI) | payer MEDICARE, SELFPAY ==
[2023-03-25 17:35] LABS: Absolute Lymphocyte Count 1.22 X10^3/uL (0.83-4.51); Absolute Neutrophil Count 4.4 X10^3/uL (2.0-7.7); Basophil# 0.02 X10^3/uL; Basophil% 0.3 % (0-1); Eosinophil# 0.03 X10^3/uL; Eosinophils% 0.5 % (0-5); Hematocrit 36.6 % (37-47); Hemoglobin 11.8 g/dL (12.0-15.0); Lymphocyte # 1.22 X10^3/ul (0.83-4.51); Lymphocyte % 19.3 % (19-41); Mean Corp Hgb Conc 32.2 g/dL (32-36); Mean Corpuscular Hgb 32.7 pg (27.0-32.0); Mean Corpuscular Volume 101.4 fL (81-99); Mean Platelet Vol. 10.3 fl (6.2-12.0); Monocyte# 0.58 X10^3/uL; Monocyte% 9.2 % (0-10); NRBC Flagged by Analyzer 0 % (0-5); Neutrophil # 4.44 X10^3/uL (2.7-7.7); Neutrophil % 70.4 % (47-70); Platelet Count 262 K/mm3 (150-450); RBC Distribution Width CV 13.3 % (11.6-14.6); RBC Distribution Width SD 50.1 fl (35.1-43.9); Red Blood Count 3.61 M/mm3 (4.2-5.4); White Blood Count 6.3 K/mm3 (4.4-11.0)
[2023-03-25 17:55] LABS: ALB/GLOB Ratio 1.1 RATIO (0.9-2.4); AST(SGOT) 28 U/L (15-37); Alanine Aminotransfer ALT/SGPT 87 U/L (13-56); Albumin, Serum 3.4 g/dL (3.2-5.0); Alkaline Phosphatase 78 U/L (45-117); Anion Gap 6 (5-15); BUN 44 mg/dL (7-18); BUN/Creat Ratio 38.6 RATIO (10-20); Calcium,Total 9.5 mg/dL (8.5-10.1); Chloride 102 mmol/L (98-107); Creatinine, Serum 1.14 mg/dL (0.55-1.02); EST Glomerular Filtration Rate 49 mL/min (>60); Est Glom Filt Rate - Afr Amer 60 mL/min (>60); Globulin 3.2 g/dL (2.2-4.2); Glucose 123 mg/dL (74-106); Potassium 4.6 mmol/L (3.5-5.1); Protein, Total 6.6 g/dL (6.4-8.2); Sodium Level 140 mmol/L (136-145)
== END | disposition home or self-care (01) ==
PROVIDERS: PCP Internal Medicine; Referring Provider Internal Medicine Rheumatology; Visit Provider Internal Medicine Rheumatology
DX: M06.4 Inflammatory polyarthropathy (principal); M35.00 Sjogren syndrome, unspecified; R76.8 Other specified abnormal immunological findings in serum
CPT/HCPCS: 36415; 80053; 85025

== ENCOUNTER → 2023-03-28 | Outpatient (CLI) | payer MEDICARE, SELFPAY ==
[2023-04-01 18:07] LABS: QNTFERON TB Mitogen Value > 10.00 IU/mL (.); QNTFERON TB Nil Value 0.09 IU/mL (.); QNTFERON TB1+ Ag Value 0.06 IU/mL (.); QNTFERON TB2+ Ag Value 0.05 IU/mL (.); QNTIFERON TB Positive Criteria Negative (Negative)
== END | disposition home or self-care (01) ==
LOC: MTLAB 08:12
PROVIDERS: PCP Internal Medicine; Referring Provider Internal Medicine Rheumatology; Visit Provider Internal Medicine Rheumatology
DX: M06.4 Inflammatory polyarthropathy (principal); R76.8 Other specified abnormal immunological findings in serum; M19.041 Primary osteoarthritis, right hand; Z79.899 Other long term (current) drug therapy
CPT/HCPCS: 36415; 86480

== ENCOUNTER 2023-05-30 09:40 | Inpatient (IN) | payer MEDICARE, SELFPAY ==
[2023-05-30] VITALS (13 sets, daily range): BP systolic 94–132; BP diastolic 65–96; PULSE 60–131; RESP 14–26; TEMP 35.6–36.7; O2SAT 91–99; BMI 27.3; BMI 26.6
--- NOTE | 2023-05-30 09:47 | CT_ITS ---
STUDY: CTA HEAD AND NECK WITH CONTRAST REASON FOR EXAM: Female, 77 years old. Neuro deficit, acute, stroke suspected RADIATION DOSAGE (If Supplied By Facility): CTDIvol = ( 23.07 ) mGy, DLP = ( 579.36 ) mGycm TECHNIQUE: CT angiography was performed with a multi-detector CT scanner. Data acquisition was obtained from the skull base through the vertex following intravenous administration of IV 100mL Isovue-[id number]. MIP images were reconstructed from the axial data set. Post-processing of the angiographic images was performed, with multiplanar reformation and 3D reconstruction. Individualized dose optimization techniques were used for this CT. COMPARISON: No relevant priors. FINDINGS: Normal bilateral petrous carotid arteries. Normal right cavernous carotid artery with a normal supraclinoid bifurcation. Normal left cavernous carotid artery with a normal supraclinoid bifurcation. Normal right A1 segments of the anterior cerebral artery. Normal left A1 segments of the anterior cerebral artery. Normal intact anterior communicating artery (ACOM). Normal bilateral A2 segments of the anterior cerebral arteries. Normal right M1 and M2 segments of the middle cerebral arteries, with a normal M1 bifurcation. Normal left M1 and M2 segments of the middle cerebral arteries, with a normal M1 bifurcation. Normal right posterior communicating artery (PCOM). Normal left posterior communicating artery (PCOM). Normal bilateral vertebral arteries. Normal basilar artery with a normal basilar bifurcation. The visualized bilateral superior cerebellar (SCA) arteries are normal. Normal bilateral P1, P2 and visualized P3 segments of the posterior cerebral arteries. There is no demonstrated aneurysm of the [place] of [place]. Mild degree of the mucosal thickening of the right maxillary sinus as well as the ethmoid sinus and sphenoid sinuses. AORTIC ARCH: There is atherosclerotic calcific plaque formation of the aortic arch and great vessels arising from the aortic arch, without a hemodynamically significant stenosis. There is a normal origin of the brachiocephalic, left common carotid, and left subclavian arteries. Dense infiltration in the peripheral lateral aspect of the right upper lobe. Pneumonic process should be ruled out. RIGHT CAROTID ARTERIES: There is atherosclerotic plaque formation of the common carotid artery, but without a hemodynamically significant stenosis. Normal right common carotid bulb. Normal origin of the right internal carotid (ICA) artery without a hemodynamically significant stenosis. Normal visualized cervical portion of the right internal carotid artery. Normal origin of the right external carotid artery (ECA). LEFT CAROTID ARTERIES: There is atherosclerotic plaque formation of the common carotid artery, but without a hemodynamically significant stenosis. Normal left common carotid bulb. Normal origin of the left internal carotid (ICA) artery without a hemodynamically significant stenosis. Normal visualized cervical portion of the left internal carotid artery. Normal origin of the left external carotid artery (ECA). VERTEBRAL ARTERIES: Normal bilateral vertebral arteries. CT/STROKE CTA Head AND Neck W/Con IMPRESSION: Calcific plaque formation in the distal portion of both common carotid arteries. No significant narrowing of the internal carotid arteries is seen. Dense infiltration in the lateral right upper lobe. N.B. : The above Results were Read Back by Gaurav Trent MD to Dr Juana MD, and understanding confirmed on 05/30/2023 10:18:25 (ET). Electronically Signed: Gaurav Trent MD at 10:19 EDT ,
--- NOTE | 2023-05-30 09:47 | EKG12_ITS ---
Test Reason : STROKE TEAM Blood Pressure : / mmHG Vent. Rate : 121 BPM Atrial Rate : 000 BPM P-R Int : 000 ms QRS Dur : 082 ms QT Int : 370 ms P-R-T Axes : 000 080 -79 degrees QTc Int : 525 ms Atrial fibrillation with rapid ventricular response with premature ventricular or aberrantly conducte d complexes ST & T wave abnormality, consider lateral ischemia Abnormal ECG Confirmed by JESSIKA HAGEN, RAMY ([id number]), visual effects editor NAVID SALAS ([id number]) on 06/09/2023 7:44:28 AM Referred By: Confirmed By:JONY ROSEN MD
--- NOTE | 2023-05-30 09:47 | CT_ITS ---
We are attempting to reach an attending provider to discuss findings. An addendum with communication details will be sent when the communication is complete. STUDY: CT HEAD STROKE PROTOCOL W/O CONTRAST INJECTION REASON FOR EXAM: Female, 77 years old. Neuro deficit, acute, stroke suspected RADIATION DOSAGE (If Supplied By Facility): CTDIvol = ( 44.99 ) mGy, DLP = ( 796.11 ) mGycm TECHNIQUE: Transaxial CT imaging of the brain was performed without administration of intravenous contrast material. Individualized dose optimization techniques were used for this CT. COMPARISON: Comparison is made with prior study dated February 14, 2016. FINDINGS: Normal soft tissue structures. Normal calvarium. There is mild cerebral atrophy with widening of the extra-axial spaces and ventricular dilatation. Normal white matter tracts of the cerebral hemispheres. Normal basal ganglia and thalami. Normal brainstem. Normal cerebellum. There is no intracranial hemorrhage. There are no findings of an acute ischemic infarction. Mild degree of mucosal thickening along the posterior aspect of the right ethmoid sinus. ASPECT score: 10 CT/STROKE Brain/Head without Cont IMPRESSION: Chronic involutional changes of the brain. Electronically Signed: Gaurav Trent MD at 10:02 EDT ,
--- NOTE | 2023-05-30 10:01 | ED.RN ---
[facility] called at 0958, there will be a delay in the pt assessment due to neurologist being on another call.
[2023-05-30 10:02] LABS: Absolute Lymphocyte Count 0.42 X10^3/uL (0.83-4.51); Absolute Neutrophil Count 3.5 X10^3/uL (2.0-7.7); Basophil# 0.02 X10^3/uL; Basophil% 0.5 % (0-1); Eosinophil# 0.01 X10^3/uL; Eosinophils% 0.2 % (0-5); Hematocrit 37.4 % (37-47); Hemoglobin 11.4 g/dL (12.0-15.0); Lymphocyte # 0.42 X10^3/ul (0.83-4.51); Lymphocyte % 9.8 % (19-41); Mean Corp Hgb Conc 30.5 g/dL (32-36); Mean Corpuscular Hgb 31.9 pg (27.0-32.0); Mean Corpuscular Volume 104.8 fL (81-99); Mean Platelet Vol. 9.6 fl (6.2-12.0); Monocyte# 0.37 X10^3/uL; Monocyte% 8.6 % (0-10); NRBC Flagged by Analyzer 0 % (0-5); Neutrophil # 3.45 X10^3/uL (2.7-7.7); Neutrophil % 80.7 % (47-70); POSITIVE DIFFERENTIAL YES; POSITIVE MORPHOLOGY YES; Platelet Count 198 K/mm3 (150-450); RBC Distribution Width CV 14.1 % (11.6-14.6); RBC Distribution Width SD 54.4 fl (35.1-43.9); Red Blood Count 3.57 M/mm3 (4.2-5.4); White Blood Count 4.3 K/mm3 (4.4-11.0)
[2023-05-30 10:03] LABS: Differential Indicated SCAN CRITERIA MET
--- NOTE | 2023-05-30 10:03 | EDS_ITS ---
HPI History of Present Illness Chief Complaint: Neuro S/Sx Narrative Narrative: 77-year-old female past medical history of 3 previous strokes, on Coumadin, multiple medical problems, presents with left-sided weakness and slurred speech since 1:00 in the morning. She presents with her sister who states that her speech is somewhat slower. She states that she awoke at around 1:00 in the morning and started having left-sided weakness. Her Coumadin level/INR was checked earlier in the week and she states that it was low at 1.6. She takes this secondary to her previous TIAs and strokes. She complains of left-sided weakness, mainly in her leg, and perhaps even both legs since 1:00 in the morning. 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 Nonrheumatic aortic (valve) insufficiency Nonrheumatic tricuspid valve regurgitation Osteoarthritis Paroxysmal atrial fibrillation Persistent atrial fibrillation Pneumonia PUD (peptic ulcer disease) Pulmonary hypertension Small bowel obstruction SOB (shortness of breath) on exertion Spinal cord stimulator status 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 classification TIA (transient ischemic attack) Home Medications calcium citrate 200 mg calcium-vitamin D3 6.25 mcg (250 unit) tablet 1 ea PO DAILY SUPPLEMENT 08/12/14 [History Last Taken 09/25/20] zolpidem 10 mg tablet 10 mg PO QHS PRN sleep 03/13/18 [History Last Taken 05/29/23] gabapentin 300 mg capsule 300 mg PO BID 09/15/20 [History Last Taken 05/30/23] acetaminophen 500 mg tablet 1,000 mg PO DAILY PRN PRN Pain 1-10 Or Fever 09/25/20 [History Last Taken 09/22/20] coenzyme Q10 100 mg capsule 100 mg PO DAILY SUPPLEMENT 09/25/20 [History Last Taken 09/25/20] levothyroxine 25 mcg tablet 25 mcg PO DAILY THYROID 09/25/20 [History Last Taken 05/30/23] magnesium 30 mg tablet 30 mg PO DAILY SUPPLEMENT 09/25/20 [History Last Taken 09/24/20] multivitamin with minerals 1 tab PO DAILY SUPPLEMETN 09/25/20 [History Last Taken 09/25/20] warfarin 1 mg tablet 0.5 mg PO MOWEFR BLOOD THINNER 10/19/21 [History Last Taken 05/29/23] warfarin 1 mg tablet 1 mg PO SUTUTHSA 10/19/21 [History Last Taken 05/29/23] atenolol 25 mg tablet 25 mg PO BID HEART #60 tabs 10/22/21 [Rx Last Taken 05/30/23] pantoprazole 40 mg tablet,delayed release (Protonix) 40 mg PO DAILY 04/22/22 [History Last Taken 05/30/23] albuterol sulfate 90 mcg/actuation aerosol inhaler 2 puff inhalation Q4H PRN shortness of breath or wheezing #8.5 grams 05/07/22 [Rx Last Taken 05/30/23] fluticasone propionate 50 mcg/actuation nasal spray,suspension (Flonase Allergy Relief) 2 spray intranasal QDAY #16 grams 05/07/22 [Rx Last Taken Unknown] furosemide 40 mg tablet 40 mg PO BID Swelling #60 tabs 12/10/22 [Rx Last Taken 05/30/23] diltiazem HCl 120 mg capsule,extended release 24 hr 120 mg PO DAILY #60 caps 02/10/23 [Rx Last Taken 05/30/23] Nebulizer machine #1 ea 05/08/23 [Rx Last Taken Unknown] budesonide 1 mg/2 mL suspension for nebulization 1 mg (2 mL) inhalation BID #60 mL 05/08/23 [Rx Last Taken 05/30/23] ipratropium 0.5 mg-albuterol 3 mg (2.5 mg base)/3 mL nebulization soln 3 ml inhalation Q4H PRN PRN SOB &/OR WHEEZING #180 mL 05/08/23 [Rx Last Taken 05/30/23] leflunomide 10 mg tablet 5 mg PO DAILY 05/08/23 [History Last Taken 05/30/23] buprenorphine 10 mcg/hour weekly transdermal patch 1 patch topical Q7D 05/30/23 [History Last Taken Unknown] fluticasone fur. 100 mcg-umeclid 62.5 mcg-vilant 25 mcg inhalat.powder (Trelegy Ellipta) 1 inh inhalation Q24H 05/30/23 [History Last Taken 05/30/23] hydrocodone-acetaminophen 5-325mg 5mg-325mg 1 tab PO Q8H 05/30/23 [History Last Taken Unknown] prednisone 5 mg tablet 5 mg PO DAILY 05/30/23 [History Last Taken 05/30/23] Allergy/AdvReac Type Severity Reaction Status Date / Time cortisone Allergy a.fib Verified 05/30/23 10:08 hydrocodone [From Vicodin] AdvReac Severe Vomiting Verified 05/30/23 10:08 [id number] Reductase AdvReac Severe Myalgias Verified 05/30/23 10:08 Inhibitor [[id number]-[id number] Reductase Inhibitor] adhesive AdvReac Rash if on Verified 05/30/23 10:08 for extended period of time Family History Father CVA (cerebral vascular accident) Mother CVA (cerebral vascular accident) Sister CAD (coronary artery disease) Atrial fibrillation Sister COPD (chronic obstructive pulmonary disease) Surgical History H/O left wrist surgery History of back surgery History of left hip replacement History of right hip replacement History of rotator cuff surgery S/P foot surgery, right S/P insertion of spinal cord stimulator Social History pets and animals: Yes pets and animals: dog(s) Smoking Status: Former smoker Tobacco: How many years used: 36 how long ago did patient quit smoking: Patient quit in 2000 alcohol intake: current alcohol intake frequency: a few times a week Alcohol type: beer details: rare substance use type: does not use ROS ROS ED ROS Narrative Constitutional: No fever, no chills. HEENT: No sore throat. No neck pain. No loss of vision. No rhinorrhea. Cardiovascular: No chest pain. No palpitations. No pedal edema. Respiratory: No cough, no shortness of breath. Abdominal: No abdominal pain. No nausea. No vomiting. Genitourinary: No dysuria. No hematuria. Musculoskeletal: No myalgias. No arthralgias. Neurologic: Positive headaches. No dizziness. No lightheadedness. Left lower extremity weakness. Reported slow speech by sister. Skin: No rash. No change in color. Psychiatric: No depression. No anxiety. EXAM Physical Exam Narrative Exam Narrative: Afebrile. Vital signs noted. HEENT: Normocephalic. Atraumatic. PERRL, EOMI. Neck soft and supple. No point tenderness or step off. Cardiovascular: Regular rate and rhythm. No murmurs, rubs, or gallops appreciated. Respiratory: No tachypnea. Lungs clear to auscultation bilaterally. Gastrointestinal: Abdomen soft, nontender, with normoactive bowel sounds. No rebound or guarding. Neurological: Awake. Alert. NIH stroke scale is 4 for mild dysarthria and left lower extremity weakness. Skin: No rash. Normal color. No pallor. Musculoskeletal: No pedal edema. Full range of motion extremities. Const Vital Signs: 05/30/23 09:41 05/30/23 09:55 05/30/23 10:07 Temperature 97.2 F L 97.2 F L Temperature Source Temporal Temporal Pulse Rate 104 H 108 H Respiratory Rate 16 19 H Blood Pressure 106/93 H 106/71 Blood Pressure Mean 97 82 Pulse Ox 95 91 91 Oxygen Delivery Method Room Air Room Air Nasal Cannula Oxygen Flow Rate (L/min) 6 05/30/23 10:44 05/30/23 10:44 05/30/23 11:16 Temperature Temperature Source Pulse Rate 106 H 131 H Respiratory Rate 26 H 19 H Blood Pressure 109/65 Blood Pressure Mean 79 Pulse Ox 94 95 Oxygen Delivery Method Nasal Cannula High Flow Oxygen Flow Rate (L/min) 8 8 NIHSS NIHSS Initial: 1a Level of Consciousness: 0 1b LOC Questions (Score 2 if aphasic/stupor): 0 1c LOC Commands (Only score 1st attempt): 0 2 Best Gaze (If aphasic, use reflexive mvmts.): 0 3 Visual: 0 4 Facial Palsy: 0 5 Motor Arm Right (UN = amputation/fusion): 1 5 Motor Arm Left: 0 6 Motor Leg Right: 0 6 Motor Leg Left: 2 7 Limb ataxia (Only + if out of proportion): 0 8 Sensory (Aphasia/stupor=0 or 1, coma=2): 0 9 Best Language: 0 10 Dysarthria (mute, coma=2, intubated=UN): 1 11 Extinction and Inattention (only scored if +): 0 Total Score: 4 MDM MDM MDM Narrative Medical decision making narrative: Although she is out side the window for tPA, and she is also not a candidate because she takes Coumadin, stroke team was called for an NIH stroke scale of 4. I received a call from the radiologist regarding the CT of the brain which shows no acute hemorrhage or infarct. In discussion with telestroke, they did not notice any left leg weakness and did not think that this was strokelike symptoms as her leg weakness was bilateral for them. I reviewed her EKG independently which shows atrial fibrillation with rapid ventricular response at 121 bpm. She varies on the monitor anywhere from 107 up to 131. She states she took her atenolol this morning but she will be redosed with a dose of Lopressor. I reviewed her laboratory work from today and she is neutropenic at 4.3 which I think is nonspecific, hemoglobin stable at 11.4, platelet count normal at 198. INR is subtherapeutic at 1.8, electrolyte panel is grossly unremarkable except for CO2 of 33 which is consistent with COPD. Her creatinine is slightly elevated at 1.78 with a BUN of 45 consistent with acute kidney injury. While glucose is appropriately elevated at 111, she has a normal anion gap of 6. High-sensitivity troponin normal at 17, BNP is chronically elevated at 664. I reviewed the radiology reports for the CT of the brain and received call from the ordnance truck installation supervisor which shows no acute hemorrhage. In review of the CTA of the head and neck there is no large vessel occlusion. Chest x-ray interpreted by myself shows bilateral pneumonia. I reviewed the radiology report which confirms right upper, lower, and left lower lobe infiltrates. She was started on antibiotics in the form of azithromycin and Rocephin after blood cultures were obtained. At this point in time, I discussed patient with the hospitalist for admission for acute kidney injury, A-fib with RVR, and multilobar pneumonia. Disposition is admit in stable condition. History & Record Review Discussion w/independent historian: Patient Additional record(s) reviewed:: Prior outpatient record and Prior labs Lab Data Labs: Laboratory Results - last 24 hr 05/30/23 05/30/23 09:51 09:52 WBC 4.3 L RBC 3.57 L Hgb 11.4 L Hct 37.4 MCV 104.8 H MCH 31.9 MCHC 30.5 L RDW Std Deviation 54.4 H RDW Coeff of Nicki 14.1 Plt Count 198 MPV 9.6 Immature Gran % (Auto) 0.200 Neut % (Auto) 80.7 H Lymph % (Auto) 9.8 L [place]hin % (Auto) 8.6 Eos % (Auto) 0.2 Baso % (Auto) 0.5 Absolute Neuts (auto) 3.5 Absolute Lymphs (auto) 0.42 L Nucleated RBC % 0 Differential Comment COMMENT Diff Path Review May foll PT 20.7 H INR 1.8 APTT 30.7 Sodium 141 Potassium 3.9 Chloride 102 Carbon Dioxide 33.0 H Anion Gap 6 BUN 45 H Creatinine 1.78 H Estim Creat Clear Calc 20.61 Est GFR (MDRD) Af Amer 36 L Est GFR (MDRD) Non-Af 30 L BUN/Creatinine Ratio 25.3 H Glucose 111 H Calcium 9.0 Troponin I High Sens 17 B-Natriuretic Peptide 664.8 H POC Glucose 96 Radiography Diagnostic Testing: Clinical Impression(s) from Imaging Studies Brain CT 05/30/23 09:47 IMPRESSION: Chronic involutional changes of the brain. Electronically Signed: Gaurav Trent MD at 10:02 EDT , ADDENDUM: 05/30/23 1013 IMPRESSION: Chronic involutional changes of the brain. N.B. : The above Results were Read Back by Gaurav Trent MD to Dr Juana MD, and understanding confirmed on 05/30/2023 10:06:09 (ET). Electronically Signed: Gaurav Trent MD at 10:02 EDT , Head/Neck CTA 05/30/23 09:47 IMPRESSION: Calcific plaque formation in the distal portion of both common carotid arteries. No significant narrowing of the internal carotid arteries is seen. Dense infiltration in the lateral right upper lobe. N.B. : The above Results were Read Back by Gaurav Trent MD to Dr Juana MD, and understanding confirmed on 05/30/2023 10:18:25 (ET). Electronically Signed: Garuav Trent MD at 10:19 EDT , ADDENDUM: 05/30/23 1026 IMPRESSION: Calcific plaque formation in the distal portion of both common carotid arteries. No significant narrowing of the internal carotid arteries is seen. Dense infiltration in the lateral right upper lobe. N.B. : The above Results were Read Back by Gaurav Trent MD to Dr Juana MD, and understanding confirmed on 05/30/2023 10:18:25 (ET). Electronically Signed: Gaurav Trent MD at 10:19 EDT , Chest X-Ray 05/30/23 10:27 IMPRESSION: Right upper and right lower lobe infiltrates. Patchy infiltrate in the left lower lobe. Electronically Signed: Gaurav Trent MD at 10:56 EDT , Management Discussion w/another healthcare provider: Hospitalist (Dr. Vazquez) Discharge Plan Dx/Rx/DC Orders Clinical Impression: Multilobar lung infiltrate, CHF (congestive heart failure), Persistent atrial fibrillation, Bilateral leg weakness, COCO (acute kidney injury) Disposition Disposition: Acute Care Hospital [facility]
[2023-05-30 10:10] LABS: Bedside Glucose 96 mg/dL (74-106)
[2023-05-30 10:19] LABS: Anion Gap 6 (5-15); BUN 45 mg/dL (7-18); BUN/Creat Ratio 25.3 RATIO (10-20); Chloride 102 mmol/L (98-107); Creatinine, Serum 1.78 mg/dL (0.55-1.02); EST Glomerular Filtration Rate 30 mL/min (>60); Est Glom Filt Rate - Afr Amer 36 mL/min (>60); Estimated Creatinine Clearance 20.61 ml/min; Glucose 111 mg/dL (74-106); Potassium 3.9 mmol/L (3.5-5.1); Sodium Level 141 mmol/L (136-145); Troponin-I HS 17 pg/mL (3.0-54.0)
--- NOTE | 2023-05-30 10:27 | RAD_ITS ---
STUDY: X-RAY CHEST REASON FOR EXAM: Female, 77 years old. Neuro deficit, acute, stroke suspected TECHNIQUE: Single AP portable view of the chest. COMPARISON: Comparison is made with prior study January 01, 2023. FINDINGS: EKG electrodes are seen. Infiltration in the right upper lobe as well as consolidation in the right lower lobe. Patchy infiltrate in the left lower lobe. There is no demonstrated pleural abnormality. Normal size heart. Normal mediastinum and fay. Normal visualized pulmonary arteries. There is atherosclerotic calcification of the aortic arch with tortuosity. Electrodes from a spine stimulator device are seen. Bilateral shoulder replacement. There is no demonstrated abnormality of the visualized soft tissue structures of the upper abdomen. RAD/Chest 1 View IMPRESSION: Right upper and right lower lobe infiltrates. Patchy infiltrate in the left lower lobe. Electronically Signed: Gaurav Trent MD at 10:56 EDT ,
[2023-05-30] MEDS: Ipratropium/Albuterol Sulfate 3 ML AMPUL.NEB INHALATION ×2 (10:43→20:14)
[2023-05-30 10:53] LABS: International Normalized Ratio 1.8; Prothrombin Time (Protime)PT. 20.7 SECONDS (11.7-14.9)
[2023-05-30 10:54] LABS: Partial Thromboplast Time 30.7 Seconds (24.1-36.2)
[2023-05-30 10:56] LABS: BNP,B-Type NATRIURETIC PEPTIDE 664.8 pg/mL (0-100)
--- NOTE | 2023-05-30 12:07 | HP.PCM_ITS ---
[facility] - General General Date of Admission: 05/30/23 Date of Service: 05/30/23 Chief Complaint: stroke like symptoms. HPI Narrative EMILE KITCHEN, is a 77 F with a PMH as outlined who presents via the ED on 05/30/2023 with a coomplaint of left sided weakness and slurred speech. Her last known well was ~ 1am on the morning of admission. She has a history of CVA and is on coumadin. Her INR was not therapeutic at 1.6 when checked a couple of days prior to admission. She admitted to some episodic difficulty swallowing and also says she had generalized weakness. She had felt quite frail and had been getting weaker and more lethargic at home. Due to concerns about having a stroke since her INR was 1.6, she called her sister and she was brought into the ED. Vitals in the ED where blood pressure 109/65, pulse rate of 131, respiratory rate of 19 and oxygen sats of 95%. She was saturating at 95% on 8 L of oxygen. CBC showed hemoglobin of 11.4 with WBC of 4.3 and platelets of 198. INR was 1.8. Chemistry shwoed sodium of 141 with potassium of 3.9a nd bicarb of 33. Cr was 1.78 ad glucose was 111. BNP was 664.8, though it was chronically elevated. CT of the brain showed no acute intracranial pathology and showed only chronic inv olutional changes. CT of the head and neck showed no evidence of hemodynamically significant stenosis and showed calcific plaque formation in the distal origin of both common carotid arteries with no significant narrowing of the internal carotid arteries and dense infiltration in the right lateral upper lobe. EKG showed no acute ST changes. Telestroke was consulted and reviewed patient and did not think she required tenecteplase. 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 Nonrheumatic aortic (valve) insufficiency Nonrheumatic tricuspid valve regurgitation Osteoarthritis Paroxysmal atrial fibrillation Persistent atrial fibrillation Pneumonia PUD (peptic ulcer disease) Pulmonary hypertension Small bowel obstruction SOB (shortness of breath) on exertion Spinal cord stimulator status 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 classification TIA (transient ischemic attack) Home Medications calcium citrate 200 mg calcium-vitamin D3 6.25 mcg (250 unit) tablet 1 ea PO DAILY SUPPLEMENT 08/12/14 [History Last Taken 09/25/20] zolpidem 10 mg tablet 10 mg PO QHS PRN sleep 03/13/18 [History Last Taken 05/29/23] gabapentin 300 mg capsule 300 mg PO BID 09/15/20 [History Last Taken 05/30/23] acetaminophen 500 mg tablet 1,000 mg PO DAILY PRN PRN Pain 1-10 Or Fever 09/25/20 [History Last Taken 09/22/20] coenzyme Q10 100 mg capsule 100 mg PO DAILY SUPPLEMENT 09/25/20 [History Last Taken 09/25/20] levothyroxine 25 mcg tablet 25 mcg PO DAILY THYROID 09/25/20 [History Last Taken 05/30/23] magnesium 30 mg tablet 30 mg PO DAILY SUPPLEMENT 09/25/20 [History Last Taken 09/24/20] multivitamin with minerals 1 tab PO DAILY SUPPLEMETN 09/25/20 [History Last Taken 09/25/20] warfarin 1 mg tablet 0.5 mg PO MOWEFR BLOOD THINNER 10/19/21 [History Last Taken 05/29/23] warfarin 1 mg tablet 1 mg PO SUTUTHSA 10/19/21 [History Last Taken 05/29/23] atenolol 25 mg tablet 25 mg PO BID HEART #60 tabs 10/22/21 [Rx Last Taken 05/30/23] pantoprazole 40 mg tablet,delayed release (Protonix) 40 mg PO DAILY 04/22/22 [History Last Taken 05/30/23] albuterol sulfate 90 mcg/actuation aerosol inhaler 2 puff inhalation Q4H PRN shortness of breath or wheezing #8.5 grams 05/07/22 [Rx Last Taken 05/30/23] fluticasone propionate 50 mcg/actuation nasal spray,suspension (Flonase Allergy Relief) 2 spray intranasal QDAY #16 grams 05/07/22 [Rx Last Taken Unknown] furosemide 40 mg tablet 40 mg PO BID Swelling #60 tabs 12/10/22 [Rx Last Taken 05/30/23] diltiazem HCl 120 mg capsule,extended release 24 hr 120 mg PO DAILY #60 caps 02/10/23 [Rx Last Taken 05/30/23] Nebulizer machine #1 ea 05/08/23 [Rx Last Taken Unknown] budesonide 1 mg/2 mL suspension for nebulization 1 mg (2 mL) inhalation BID #60 mL 05/08/23 [Rx Last Taken 05/30/23] ipratropium 0.5 mg-albuterol 3 mg (2.5 mg base)/3 mL nebulization soln 3 ml inhalation Q4H PRN PRN SOB &/OR WHEEZING #180 mL 05/08/23 [Rx Last Taken 05/30/23] leflunomide 10 mg tablet 5 mg PO DAILY 05/08/23 [History Last Taken 05/30/23] buprenorphine 10 mcg/hour weekly transdermal patch 1 patch topical Q7D pain 05/30/23 [History Last Taken Unknown] fluticasone fur. 100 mcg-umeclid 62.5 mcg-vilant 25 mcg inhalat.powder (Trelegy Ellipta) 1 inh inhalation Q24H lungs 05/30/23 [History Last Taken 05/30/23] hydrocodone-acetaminophen 5-325mg 5mg-325mg 1 tab PO Q8H 05/30/23 [History Last Taken Unknown] prednisone 5 mg tablet 5 mg PO DAILY 05/30/23 [History Last Taken 05/30/23] Allergy/AdvReac Type Severity Reaction Status Date / Time cortisone Allergy a.fib Verified 05/30/23 10:08 hydrocodone [From Vicodin] AdvReac Severe Vomiting Verified 05/30/23 10:08 Dfbnfrc-AJL-ZdY Reductase AdvReac Severe Myalgias Verified 05/30/23 10:08 Inhibitor [Aunexbe-Miy-Gfx Reductase Inhibitor] adhesive AdvReac Rash if on Verified 05/30/23 10:08 for extended period of time Family History Father CVA (cerebral vascular accident) Mother CVA (cerebral vascular accident) Sister CAD (coronary artery disease) Atrial fibrillation Sister COPD (chronic obstructive pulmonary disease) Surgical History H/O left wrist surgery History of back surgery History of left hip replacement History of right hip replacement History of rotator cuff surgery S/P foot surgery, right S/P insertion of spinal cord stimulator Social History pets and animals: Yes pets and animals: dog(s) Smoking Status: Former smoker Tobacco: How many years used: 36 how long ago did patient quit smoking: Patient quit in 2000 alcohol intake: current alcohol intake frequency: a few times a week Alcohol type: beer details: rare substance use type: does not use ROS Review of Systems ROS Unobtainable: Denies due to encephalopathy Constitutional Constitutional: Reports chills, fatigue, malaise and weakness; Denies anorexia, change in weight or fever(s) Eyes Eyes: Denies change in vision ENT HEENT: Denies dysphagia, sore throat or throat swelling Cardiovascular Cardiovascular: Denies chest pain, edema, orthopnea, palpitations or paroxysmal nocturnal dyspnea Respiratory/Chest Respiratory/Chest: Reports cough, shortness of breath at rest and shortness of breath with exertion; Denies hemoptysis or wheezing Gastrointestinal Gastrointestinal: Denies abdominal pain, constipation, diarrhea, dyspepsia, hematochezia, nausea or vomiting Genitourinary Genitourinary: Denies urinary frequency Musculoskeletal Musculoskeletal: Denies back pain Neurologic Neurologic: Denies confusion, dizziness, focal weakness or headache(s) Psychiatric Psychiatric: Denies anxiety or depression Hematologic/Lymphatic Hematologic/Lymphatic: Denies anemia Vital Signs Vital Signs Vital Signs: 05/30/23 09:41 05/30/23 09:55 05/30/23 10:07 Temperature 97.2 F L 97.2 F L Temperature Source Temporal Temporal Pulse Rate 104 H 108 H Respiratory Rate 16 19 H Blood Pressure 106/93 H 106/71 Blood Pressure Mean 97 82 Pulse Ox 95 91 91 Oxygen Delivery Method Room Air Room Air Nasal Cannula Oxygen Flow Rate (L/min) 6 05/30/23 10:44 05/30/23 10:44 05/30/23 11:16 Temperature Temperature Source Pulse Rate 106 H 131 H Respiratory Rate 26 H 19 H Blood Pressure 109/65 Blood Pressure Mean 79 Pulse Ox 94 95 Oxygen Delivery Method Nasal Cannula High Flow Oxygen Flow Rate (L/min) 8 8 Weight Weight: 141 lb 1.533 oz Body Mass Index (BMI) 26.6 Physical Exam Const alert, oriented x3 and no apparent distress General Appearance: cooperative and well developed HEENT normocephalic, head/scalp atraumatic and moist oral mucous membranes Neck no lymphadenopathy, supple and no JVD Lymph Lymphatic: no lymphadenopathy noted and no lymphedema noted Resp Resp Narrative: Diminished breath sounds bibasally, few crackles. On 8 L of oxygen by nasal cannula. Cardio S1 normal heart sound, S2 normal heart sound and no murmurs Cardio Narrative: A-fib, poor rate control Rate: tachycardic GI normal to inspection, nondistended, normoactive bowel sounds, soft to palpation and non-tender Extremity normal capillary refill, no clubbing, cyanosis or edema and no calf tenderness General Extremity: no tenderness to palpation of joints or extremities Skin General Skin Exam: no breakdown Neuro CN's II-XII intact bilaterally, no focal motor deficits, no sensory deficits noted and deep tendon reflexes 2+ bilaterally Motor Exam: strength 5/5 throughout and general weakness Psych thought process normal and cooperative Appearance: appropriate Results Lab / Micro Data 05/30/23 09:52 05/30/23 09:52 Labs: Laboratory Results - last 24 hr 05/30/23 09:51: POC Glucose 96 05/30/23 09:52: WBC 4.3 L, RBC 3.57 L, Hgb 11.4 L, Hct 37.4, MCV 104.8 H, MCH 31.9, MCHC 30.5 L, RDW Std Deviation 54.4 H, RDW Coeff of Nicki 14.1, Plt Count 198, MPV 9.6, Immature Gran % (Auto) 0.200, Neut % (Auto) 80.7 H, Lymph % (Auto) 9.8 L, Callahan % (Auto) 8.6, Eos % (Auto) 0.2, Baso % (Auto) 0.5, Absolute Neuts (auto) 3.5, Absolute Lymphs (auto) 0.42 L, Nucleated RBC % 0, Differential Comment COMMENT, Diff Path Review November foll, PT 20.7 H, INR 1.8, APTT 30.7, Sodium 141, Potassium 3.9, Chloride 102, Carbon Dioxide 33.0 H, Anion Gap 6, BUN 45 H, Creatinine 1.78 H, Estim Creat Clear Calc 20.61, Est GFR (MDRD) Af Amer 36 L, Est GFR (MDRD) Non-Af 30 L, BUN/Creatinine Ratio 25.3 H, Glucose 111 H, Calcium 9.0, Troponin I High Sens 17, B-Natriuretic Peptide 664.8 H Radiology Impression Brain CT 05/30/23 09:47 IMPRESSION: Chronic involutional changes of the brain. Electronically Signed: Gaurav Trent MD at 10:02 EDT , ADDENDUM: 05/30/23 1013 IMPRESSION: Chronic involutional changes of the brain. N.B. : The above Results were Read Back by Gaurav Trent MD to Dr Juana MD, and understanding confirmed on 05/30/2023 10:06:09 (ET). Electronically Signed: Gaurav Trent MD at 10:02 EDT , Head/Neck CTA 05/30/23 09:47 IMPRESSION: Calcific plaque formation in the distal portion of both common carotid arteries. No significant narrowing of the internal carotid arteries is seen. Dense infiltration in the lateral right upper lobe. N.B. : The above Results were Read Back by Gaurav Trent MD to Dr Juana MD, and understanding confirmed on 05/30/2023 10:18:25 (ET). Electronically Signed: Gaurav rTent MD at 10:19 EDT , ADDENDUM: 05/30/23 1026 IMPRESSION: Calcific plaque formation in the distal portion of both common carotid arteries. No significant narrowing of the internal carotid arteries is seen. Dense infiltration in the lateral right upper lobe. N.B. : The above Results were Read Back by Gaurav Trent MD to Dr Juana MD, and understanding confirmed on 05/30/2023 10:18:25 (ET). Electronically Signed: Gaurav Trent MD at 10:19 EDT , Chest X-Ray 05/30/23 10:27 IMPRESSION: Right upper and right lower lobe infiltrates. Patchy infiltrate in the left lower lobe. Electronically Signed: Gaurav Trent MD at 10:56 EDT , Assessment & Plan Assessment/Plan (1) COCO (acute kidney injury): (2) Bilateral leg weakness: (3) Multilobar lung infiltrate: (4) Acute respiratory failure with hypoxia: PLAN: Plan #Acute on chronic hypoxic respiratory failure due to pneumonia * Admit to PCU. Patient on 8 L of oxygen. * Chest x-ray showed right upper and lower lobe infiltrates with patchy infiltrate in the left lower lobe * Patient states she has been treated on outpatient basis for this pneumonia several times but is still not improving. * CTA of the chest done showed evidence of right-sided consolidation with no evidence of PE. * Will place patient on IV Zosyn. Sputum cultures and blood cultures obtained. * Hydrate gently with IV fluids. * #Strokelike symptoms * Patient said she felt weak and felt like he had left-sided weakness had worsened. She has a history of stroke and says because her INR was 1.6, she was concerned about a stroke. CT of the brain done showed no acute intracranial pathology. MRI of the brain ordered. CT of the head and neck showed no hemodynamically significant stenosis. * MRI of the brain ordered and pending. PT OT on board. Fall precautions. * Coumadin resumed. Target INR is 2-3. * #COCO: Creatinine is 1.78. Baseline creatinine from 01/01/2023 was 1. Will hydrate gently with IV fluids and trend. #Asthma and COPD: Not in exacerbation. Breathing treatments bronchodilators. #Chronic respiratory failure: Wears 2 L of oxygen with exertion. Breathing treatments with bronchodilators. Titrate oxygen to maintain saturation above 90%. #Paroxysmal A-fib: * Was in RVR on admission but heart rate is subsequently improved. * On atenolol. Give a dose of IV Cardizem bolus x1. To put on Cardizem drip as needed. * Continue Eliquis and atenolol as well as Cardizem #Heart failure preserved ejection fraction: * Has known EF of 65%. BNP is elevated but she has chronically elevated BNP. * She does not appear to be fluid overloaded also. * #Hypothyroidism: On Synthroid #Peptic ulcer disease: On PPI # DVT prophylaxis: On Coumadin. INR is 1.6. Resume Coumadin and monitor INR. CODE STATUS: Full code * Patient counseled extensively about different types of CODE STATUS including full code, DNR CCA and DNR CCA. Patient elects to be full code. * Total bram-ro-wkfo time 17 minutes. Charges/Coding Visit Charges Inpatient E&M: 35626 Init Hosp L3 Procedures Hospitalists Procedures: 62839 Advncd Care Plan 30 Min
[2023-05-30] MEDS: Metoprolol Tartrate 5 MG/5 ML Vial IV (12:13)
--- NOTE | 2023-05-30 12:54 | CT_ITS ---
STUDY: CTA CHEST REASON FOR EXAM: Female, 77 years old. Pneumonia RADIATION DOSAGE (If Supplied By Facility): CTDIvol = ( 14.59 ) mGy, DLP = ( 367.87 ) mGycm TECHNIQUE: The examination was performed with the intravenous administration of IV 75mL Isovue-370. Post-processing of the angiographic images was performed, with multiplanar reformation and 3D reconstruction. Individualized dose optimization techniques were used for this CT. COMPARISON: Comparison is made with prior study done March 08, 2022. Comparison is also made with prior chest radiograph done earlier in the day. FINDINGS: Normal enhancement of the main pulmonary artery and right and left pulmonary arteries. Normal enhancement of the bilateral peripheral pulmonary arteries. There is no demonstrated pulmonary embolism. There is atherosclerotic calcification of the aortic arch with tortuosity. There is no demonstrated aortic dissection. There are calcifications of the coronary arteries. Normal mediastinum. Normal hilar regions. Normal visualized trachea and bronchi. The lungs are well expanded. Dense consolidation in the right upper lobe as well as the right middle lobe and right lower lobe. Normal pleura. Normal chest wall structures. There are degenerative changes of thoracic spine. Increased kyphosis. The patient is status post bilateral reverse shoulder replacement. Normal visualized upper abdomen. CT/CTA Chest W/WO Contrast IMPRESSION: Consolidation in the right upper, right middle and right lower lobes. Electronically Signed: Gaurav Trent MD at 13:37 EDT ,
--- NOTE | 2023-05-30 12:55 | MRI_ITS ---
STUDY: MRI BRAIN WITHOUT CONTRAST REASON FOR EXAM: Female, 77 years old. NEURO DEFICIT, lt sided weakness, slurred speach TECHNIQUE: Standardized multiplanar fat and water weighted pulse sequences were obtained. COMPARISON: CT and CTA brain from today. FINDINGS: There is mild cerebral atrophy with widening of the extra-axial spaces and ventricular dilatation. There are a limited number of small white matter hyperintensities, distributed throughout the deep white matter tracts of the cerebral hemispheres, consistent with mild chronic white matter ischemic changes. There is no evidence for recent intracranial ischemia or other cause of cytotoxic edema on diffusion weighted imaging (DWI). Normal bilateral basal ganglia. Normal thalami. There is no extra-axial fluid accumulation. Normal flow voids within the major intracranial circulation suggesting patency by spin echo criteria. Normal sella turcica, pituitary gland, infundibular stalk, optic chiasm and hypothalamus. Normal tectal plate and pineal gland. Normal midbrain, rona and medulla. Normal cerebellum. Normal basal cisterns. Normal bilateral temporal bones. Normal bilateral internal auditory canals. No demonstrated orbital abnormality, within the constraints of a routine brain study. Normal visualized paranasal sinuses. Normal calvarium and skull base. Normal visualized soft tissue structures. Normal visualized upper cervical spine. MRI/Brain without Contrast IMPRESSION: Involutional changes of the brain, as described above. Electronically Signed: Agustin Urban MD at 19:59 EDT ,
[2023-05-30] MEDS: Ceftriaxone 2 GM in 0.9% Normal Saline (50mL MB+) 50 ML IV (12:58)
[2023-05-30] MEDS: Azithromycin 500 MG in Dextrose 5%-Water (250mL Bag) 250 ML 250 MG IV (14:00)
--- NOTE | 2023-05-30 17:19 | ECHOD_ITS ---
Reason For Study: TIA/CVA Procedure This was a 2D Doppler, Color Flow transthoracic echocardiogram. Exam performed portable in patient room. Left Ventricle Normal LV size. The estimated ejection fraction is 65 %. Unable to assess diastolic dysfunction. No regional wall motion abnormalities noted. Right Ventricle Normal RV size. Normal systolic function. Atria The left atrium is severely enlarged. The right atrium is moderately enlarged. Bubble contrast study negative for right to left interatrial shunt. Mitral Valve There is no mitral valve stenosis. Moderate (2+) mitral valve insufficiency. Tricuspid Valve There is no tricuspid stenosis. Moderate (2+) tricuspid valve insufficiency. Pulmonary artery systolic pressure is 60 mmHg. Aortic Valve Trisinus/trileaflet aortic valve. Aortic sclerosis, no stenosis. There is no aortic stenosis. Mild (1+) aortic valve insufficiency. Pulmonic Valve There is no pulmonic valvular stenosis. No pulmonic valve insufficiency. Great Vessels Normal aortic root. Pericardium/Pleural No pericardial effusion. Medication Performed a rapid injection of agitated mix of 9 cc saline and 1cc air to assess for atrial septal defect. MMode/2D Measurements & Calculations LVIDd: 3.5 cm IVSd: 1.4 cm Ao root diam: 3.5 cm LVIDs: 2.5 cm LVPWd: 1.3 cm RVDd: 4.1 cm FS: 28.3 % LAV(MOD-bp): 73.4 ml LVAd ap4: 17.9 cm2 SV(MOD-sp4): 27.8 ml LAV(MOD-bp) Indexed: 45.0 ml/m2 LVLd ap4: 5.5 cm LAV(MOD-sp2): 61.8 ml EDV(MOD-sp4): 49.0 ml LAV(MOD-sp4): 74.6 ml EDV(sp4-el): 49.8 ml LVAs ap4: 11.0 cm2 LVLs ap4: 4.7 cm ESV(MOD-sp4): 21.2 ml ESV(sp4-el): 22.0 ml EF(MOD-sp4): 56.7 % EF(sp4-el): 55.8 % SV(sp4-el): 27.8 ml LA A4 area: 23.6 cm2 LA dimension(2D): 4.0 cm RA A4 area: 14.7 cm2 TAPSE: 1.7 cm Doppler Measurements & Calculations MV E max curtis: 109.7 cm/sec Lat Peak E' Curtis: 9.9 cm/sec Med Peak E' Curtis: 5.4 cm/sec E/E' lat: 11.1 E/E' med: 20.3 Ao V2 max: 170.9 cm/sec AI max curtis: 298.3 cm/sec LV V1 max: 148.0 cm/sec Ao max P.7 mmHg AI max P.6 mmHg LV V1 max P.8 mmHg Ao V2 mean: 131.5 cm/sec LV V1 mean P.5 mmHg Ao mean P.4 mmHg AI dec slope: 229.1 cm/sec2 LV V1 mean: 113.3 cm/sec Ao V2 VTI: 30.4 cm AI P1/2t: 381.4 msec LV V1 VTI: 26.4 cm AV (velocity ratio): 0.87 PA V2 max: 83.4 cm/sec TR max curtis: 350.4 cm/sec TR max P.1 mmHg ECHO/Echo Complete Interpretation Summary The estimated ejection fraction is 65 %. Unable to assess diastolic dysfunction. The left atrium is severely enlarged. The right atrium is moderately enlarged. Moderate (2+) mitral valve insufficiency. Moderate (2+) tricuspid valve insufficiency. Mild (1+) aortic valve insufficiency. Ordering Physician: Connie Vazquez Referring Physician: Tasneem Beck Performed By: Kanika Abrams, OFELIA, RVT
[2023-05-30] MEDS: Warfarin 0.5 MG Tablet PO (17:55)
[2023-05-30] MEDS: Furosemide 40 MG Tablet PO (20:47)
[2023-05-30] MEDS: 0.9% Saline Lock 10 ML Syringe IV (20:48)
[2023-05-30] MEDS: Piperacil/Tazobactam 3.375 GM in 0.9% Normal Saline (50mL MB+) 50 ML IV (20:52)
[2023-05-30] MEDS: Gabapentin 300 MG Capsule PO (22:09)
[2023-05-30] MEDS: Zolpidem Tartrate 5 MG Tablet PO (22:14)
[2023-05-30] MEDS: Atenolol 25 MG Tablet PO (23:09)
[2023-05-31] VITALS (9 sets, daily range): BP systolic 107–115; BP diastolic 66–81; PULSE 76–122; RESP 15–21; TEMP 36.4–36.8; O2SAT 94–98; BMI 27.3
[2023-05-31] MEDS: Levothyroxine 25 MCG TABLET PO (05:08)
[2023-05-31] MEDS: Piperacil/Tazobactam 3.375 GM in 0.9% Normal Saline (50mL MB+) 50 ML IV ×3 (05:12→21:52)
[2023-05-31] MEDS: Ipratropium/Albuterol Sulfate 3 ML AMPUL.NEB INHALATION ×3 (07:39→19:16)
[2023-05-31] MEDS: Flu Vacc QS2023-24(65YR UP)/PF 240 MCG/0.7 ML Syringe IM (08:23)
[2023-05-31] MEDS: Gabapentin 300 MG Capsule PO ×2 (08:24→21:52)
[2023-05-31] MEDS: dilTIAZem CD 120 MG Capsule PO (08:24)
[2023-05-31] MEDS: Multivitamins,Ther W-Minerals Tablet 1 TABLET PO (08:24)
[2023-05-31] MEDS: Pantoprazole Sodium 40 MG Tablet PO (08:24)
[2023-05-31] MEDS: Atenolol 25 MG Tablet PO ×2 (08:24→21:51)
[2023-05-31] MEDS: Calcium Carb/Vitamin D 1 TABLET Tablet PO (08:24)
[2023-05-31] MEDS: Furosemide 40 MG Tablet PO ×2 (08:25→17:12)
[2023-05-31] MEDS: predniSONE 5 MG Tablet PO (08:25)
[2023-05-31] MEDS: Fluticasone 0.05% 1 SPRAY NASAL.SRY 2 SPRAY NASAL (08:29)
[2023-05-31 09:26] LABS: Absolute Lymphocyte Count 1.29 X10^3/uL (0.83-4.51); Basophil# 0.06 X10^3/uL; Basophil% 0.5 % (0-1); Eosinophil# 0.03 X10^3/uL; Eosinophils% 0.3 % (0-5); Hematocrit 34.3 % (37-47); Hemoglobin 10.4 g/dL (12.0-15.0); Lymphocyte # 1.29 X10^3/ul (0.83-4.51); Lymphocyte % 11.7 % (19-41); Mean Corp Hgb Conc 30.3 g/dL (32-36); Mean Corpuscular Hgb 31.3 pg (27.0-32.0); Mean Corpuscular Volume 103.3 fL (81-99); Mean Platelet Vol. 10.3 fl (6.2-12.0); Monocyte# 0.57 X10^3/uL; Monocyte% 5.2 % (0-10); NRBC Flagged by Analyzer 0 % (0-5); Neutrophil % 81.8 % (47-70); POSITIVE MORPHOLOGY YES; Platelet Count 182 K/mm3 (150-450); RBC Distribution Width CV 14.5 % (11.6-14.6); RBC Distribution Width SD 54.4 fl (35.1-43.9); Red Blood Count 3.32 M/mm3 (4.2-5.4)
[2023-05-31 09:33] LABS: Differential Indicated SCAN CRITERIA MET
--- NOTE | 2023-05-31 09:39 | PN.HOSP_ITS ---
Reason for Visit Reason for Visit: Diagnoses Acute respiratory failure with hypoxia (05/30/23) Acute kidney failure, unspecified (05/30/23) Other symptoms and signs involving the musculoskeletal system (05/30/23) Other nonspecific abnormal finding of lung field (05/30/23) Subjective Subjective Still feels weak. Objective Data Objective Data Vital Signs: Vital Signs Temp Pulse Resp BP Pulse Ox O2 Del Method O2 Flow Rate 36.4 C L 76 18 115/81 H 96 Nasal Cannula 2 05/31/23 08:06 05/31/23 08:06 05/31/23 08:06 05/31/23 08:06 05/31/23 08:06 05/31/23 08:10 05/31/23 08:10 Oxygen Flow Rate (L/min) 2 Oxygen Delivery Method Nasal Cannula Weight: 65.8 kg Body Mass Index (BMI) 27.3 Intake & Output: Intake and Output for Last 24 Hours 05/29/23 05/30/23 05/31/23 23:59 23:59 23:59 Intake Total 305 / 845 813 / 813 Output Total 250 / 250 Balance 305 / 845 563 / 563 Lab / Micro Data 05/31/23 08:26 05/31/23 08:26 Labs: Laboratory Results - last 24 hr 05/30/23 09:51: POC Glucose 96 05/30/23 09:52: WBC 4.3 L, RBC 3.57 L, Hgb 11.4 L, Hct 37.4, MCV 104.8 H, MCH 31.9, MCHC 30.5 L, RDW Std Deviation 54.4 H, RDW Coeff of Nicki 14.1, Plt Count 198, MPV 9.6, Immature Gran % (Auto) 0.200, Neut % (Auto) 80.7 H, Lymph % (Auto) 9.8 L, [place] % (Auto) 8.6, Eos % (Auto) 0.2, Baso % (Auto) 0.5, Absolute Neuts (auto) 3.5, Absolute Lymphs (auto) 0.42 L, Nucleated RBC % 0, Differential Comment COMMENT, Diff Path Review November, PT 20.7 H, INR 1.8, APTT 30.7, Sodium 141, Potassium 3.9, Chloride 102, Carbon Dioxide 33.0 H, Anion Gap 6, BUN 45 H, Creatinine 1.78 H, Estim Creat Clear Calc 20.61, Est GFR (MDRD) Af Amer 36 L, Est GFR (MDRD) Non-Af 30 L, BUN/Creatinine Ratio 25.3 H, Glucose 111 H, Calcium 9.0, Troponin I High Sens 17, B-Natriuretic Peptide 664.8 H 05/31/23 08:26: WBC 11.0, RBC 3.32 L, Hgb 10.4 L, Hct 34.3 L, MCV 103.3 H, MCH 31.3, MCHC 30.3 L, RDW Std Deviation 54.4 H, RDW Coeff of Nicki 14.5, Plt Count 182, MPV 10.3, Immature Gran % (Auto) 0.500, Neut % (Auto) 81.8 H, Lymph % (Auto) 11.7 L, [place] % (Auto) 5.2, Eos % (Auto) 0.3, Baso % (Auto) 0.5, Absolute Neuts (auto) 9.0 H, Absolute Lymphs (auto) 1.29, Nucleated RBC % 0 Radiography Diagnostic Testing: Radiology Impression Brain CT 05/30/23 09:47 IMPRESSION: Chronic involutional changes of the brain. Electronically Signed: Gaurav Trent MD at 10:02 EDT , ADDENDUM: 05/30/23 1013 IMPRESSION: Chronic involutional changes of the brain. N.B. : The above Results were Read Back by Gaurav Trent MD to Dr Juana MD, and understanding confirmed on 05/30/2023 10:06:09 (ET). Electronically Signed: Gaurav Trent MD at 10:02 EDT , Head/Neck CTA 05/30/23 09:47 IMPRESSION: Calcific plaque formation in the distal portion of both common carotid arteries. No significant narrowing of the internal carotid arteries is seen. Dense infiltration in the lateral right upper lobe. N.B. : The above Results were Read Back by Gaurav Trent MD to Dr Juana MD, and understanding confirmed on 05/30/2023 10:18:25 (ET). Electronically Signed: Gaurav Trent MD at 10:19 EDT , ADDENDUM: 05/30/23 1026 IMPRESSION: Calcific plaque formation in the distal portion of both common carotid arteries. No significant narrowing of the internal carotid arteries is seen. Dense infiltration in the lateral right upper lobe. N.B. : The above Results were Read Back by Gaurav Trent MD to Dr Juana MD, and understanding confirmed on 05/30/2023 10:18:25 (ET). Electronically Signed: Gaurav Trent MD at 10:19 EDT , Chest X-Ray 05/30/23 10:27 IMPRESSION: Right upper and right lower lobe infiltrates. Patchy infiltrate in the left lower lobe. Electronically Signed: Gaurav Trent MD at 10:56 EDT , Chest CTA 05/30/23 12:54 IMPRESSION: Consolidation in the right upper, right middle and right lower lobes. Electronically Signed: Gaurav Trent MD at 13:37 EDT , Brain MRI 05/30/23 12:55 IMPRESSION: Involutional changes of the brain, as described above. Electronically Signed: Agustin Urban MD at 19:59 EDT , Physical Exam Const alert and no apparent distress HEENT head/scalp atraumatic and moist oral mucous membranes Resp normal respiratory effort and no retractions Resp Narrative: diminished on Right with crackles. Cardio regular rate, regular rhythm, S1 normal heart sound and S2 normal heart sound Assessment & Plan Assessment/Plan (1) Multilobar lung infiltrate: PLAN: Right sided Suspected gram negative Pip/tazo pulmonary toilet (2) COCO (acute kidney injury): PLAN: suspected prior baseline 1.14 from 03/25 improving. IVF (3) Bilateral leg weakness: PLAN: MRI shows chronic changes. No CVA. Likely due to pneumonia (4) Acute respiratory failure with hypoxia: PLAN: Cannot be qualified as no documentation of hypoxia PLAN: Plan Chronic conditions: * Asthma and COPD: Not in exacerbation. Breathing treatments bronchodilators. * Chronic respiratory failure: Wears 2 L of oxygen with exertion. Breathing treatments with bronchodilators. Titrate oxygen to maintain saturation above 90%. * Paroxysmal A-fib: Was in RVR on admission but heart rate is subsequently improved. atenolol. Give a dose of IV Cardizem bolus x1. To put on Cardizem drip as needed. Continue Eliquis and atenolol as well as Cardizem * Heart failure preserved ejection fraction: Has known EF of 65%. BNP is elevated but she has chronically elevated BNP. She does not appear to be fluid overloaded also. * Hypothyroidism: On Synthroid * Peptic ulcer disease: On PPI DVT prophylaxis: On Coumadin. INR is 1.6. Resume Coumadin and monitor INR. CODE STATUS: Full code * Patient counseled extensively about different types of CODE STATUS including full code, DNR CCA and DNR CCA. Patient elects to be full code. * Total msgn-is-ukao time 17 minutes. Charges/Coding Visit Charges Inpatient E&M: 94700 Subs Hosp L2
[2023-05-31 09:50] LABS: Anion Gap 10 (5-15); BUN 46 mg/dL (7-18); BUN/Creat Ratio 27.9 RATIO (10-20); Calcium,Total 8.9 mg/dL (8.5-10.1); Chloride 99 mmol/L (98-107); Cholesterol 121 mg/dL (200); Creatinine, Serum 1.65 mg/dL (0.55-1.02); EST Glomerular Filtration Rate 32 mL/min (>60); Est Glom Filt Rate - Afr Amer 39 mL/min (>60); Estimated Creatinine Clearance 22.23 ml/min; Glucose 75 mg/dL (74-106); High Density Lipoprotein 55 mg/dL; Potassium 4.5 mmol/L (3.5-5.1); Sodium Level 138 mmol/L (136-145); Triglycerides 80 mg/dL; Very Low Density Lipoprotein 16 mg/dL (5-40)
[2023-05-31 10:34] LABS: Differential Comment SCANNED
--- NOTE | 2023-05-31 11:45 | CASEMGMT ---
RN HUSSAIN OCCUPATIONAL ANALYST CM to room to meet with patient for initial transition planning/care coordination assessment. MOSHE NIXON introduced self and role at [facility].? Pt voices understanding and consents to assessment at this time.? Pt sitting up in chair in room in no distress at this time.? Pt is A/O at this time and answers all questions appropriately.?? Care providers, pharmacy, and demographics verified/updated at this time. PCP: Dr Beck Specialists: Dr Chao/Margarita Mendoza, PROPERTY SPECIALIST-pulmonology, Dr Núñez-rheumatology, [facility] Cardiology Insurance: [employer] Prescription Benefit:?Yes LNOK: Dtr, Shakila. Son/POA, Nirmal Tompkins Jr. Also has another son. Living Arrangements: Lives alone in one-story home w/basement (does not have to go to the basement) w/ramp entrance. Pt states she is indep @ her baseline w/ADL's and IADL's, and works part-time. She states grandson or dtr can come stay w/her to assist her, but they are not able to stay 24/7. Transportation: Pt states drives self and states no transportation concerns at this time.? Sister can assist. DME: States has the following DME:?RTS, cane, walker, lift chair, grab bars, nebulizer, pulse ox, and O2 @ 2 l/m through [employer]. Has concentrator and portable O2. Pt also has a hospital bed available that was her late husbands but she does not use it. Pt states no need for further DME at this time.? HHC/SNF:No hx of SNF. Has had HHC in the past, but does not remember the name of agency. Discussed discharge planning. Initially pt stated she wanted to discharge home, but states since there is no one that can stay w/her 24/7, if she is unable to get up and walk around on her own by the time she discharges, then she would need to go to a SNF. She states she currently is not even able to get out of the chair on her own. Questions answered. Pt states, if SNF is needed, [facility] TCU would be her 1st preference and if she is able to discharge home then she would want HHC and [facility] HHC would be her 1st preference. She declines wanting a list of other SNF or HHC options at this time. PLAN: ?TBD. SNF vs Home w/HHC. Oscar BSN RN CM
--- NOTE | 2023-05-31 13:16 | CASEMGMT ---
Social Work SW did not complete PHQ-9 as pt did not have a stroke. SW did call TCU, message left for referral. SW met w/pt in room in regard to discharge plan. SW explained that we will not know until Friday if TCU will have a spot for her. Pt states she would just go home then. SW explained if she is not moving well enough she may want to consider another facility. SW provided to pt a list of senior care facilities in network w/her insurance, in preferred geographic area, complete w/quality and resource use data, from [facility]. Pt asked about other facilities in [place], SW reviewed list and the places in [place]. Pt states will look at the list. SW explained it may be a good idea to have other places in mind if [facility] does not have a bed and she is not strong enough to go home. Pt states understanding. SW explained that the SW Friday will be back in to speak w/her about it. Plan: Likely SNF. Referral to TCU, pt has list of other SNFs if there is no bed availability in TCU. [place]
[2023-05-31] MEDS: Zolpidem Tartrate 5 MG Tablet PO (21:52)
[2023-06-01] VITALS (11 sets, daily range): BP systolic 104–135; BP diastolic 74–80; PULSE 86–122; RESP 16–20; TEMP 36.5–37.1; O2SAT 85–98; BMI 27.3
[2023-06-01] MEDS: guaiFENesin 10 ML UDC (200MG/10ML) PO (02:08)
[2023-06-01] MEDS: Levothyroxine 25 MCG TABLET PO (05:25)
[2023-06-01] MEDS: Piperacil/Tazobactam 3.375 GM in 0.9% Normal Saline (50mL MB+) 50 ML IV ×3 (05:26→22:08)
[2023-06-01] MEDS: Ipratropium/Albuterol Sulfate 3 ML AMPUL.NEB INHALATION ×3 (06:55→20:12)
--- NOTE | 2023-06-01 08:37 | PN.HOSP_ITS ---
Reason for Visit Reason for Visit: Diagnoses Acute respiratory failure with hypoxia (05/30/23) Acute kidney failure, unspecified (05/30/23) Other symptoms and signs involving the musculoskeletal system (05/30/23) Other nonspecific abnormal finding of lung field (05/30/23) Subjective Subjective Coughing with chest pain. Objective Data Objective Data Vital Signs: Vital Signs Temp Pulse Resp BP Pulse Ox O2 Del Method O2 Flow Rate 37.1 C 97 16 135/79 H 94 Nasal Cannula 2 06/01/23 08:34 06/01/23 08:34 06/01/23 08:34 06/01/23 08:34 06/01/23 08:34 06/01/23 08:34 06/01/23 08:34 Oxygen Flow Rate (L/min) 2 Oxygen Delivery Method Nasal Cannula Weight: 65.8 kg Body Mass Index (BMI) 27.3 Intake & Output: Intake and Output for Last 24 Hours 05/30/23 05/31/23 06/01/23 23:59 23:59 22:59 Intake Total 305 / 845 1483 / 1483 290 / 290 Output Total 700 / 700 320 / 320 Balance 305 / 845 783 / 783 -30 / -30 Lab / Micro Data 05/31/23 08:26 05/31/23 08:26 Labs: Laboratory Results - last 24 hr 05/31/23 08:26: Differential Comment SCANNED, Sodium 138, Potassium 4.5, Chloride 99, Carbon Dioxide 29.0, Anion Gap 10, BUN 46 H, Creatinine 1.65 H, Estim Creat Clear Calc 22.23, Est GFR (MDRD) Af Amer 39 L, Est GFR (MDRD) Non-Af 32 L, BUN/Creatinine Ratio 27.9 H, Glucose 75, Calcium 8.9, Triglycerides 80, Cholesterol 121, LDL Cholesterol 50, VLDL Cholesterol 16, HDL Cholesterol 55 Radiography Diagnostic Testing: Radiology Impression Echocardiogram 05/30/23 17:19 Interpretation Summary The estimated ejection fraction is 65 %. Unable to assess diastolic dysfunction. The left atrium is severely enlarged. The right atrium is moderately enlarged. Moderate (2+) mitral valve insufficiency. Moderate (2+) tricuspid valve insufficiency. Mild (1+) aortic valve insufficiency. Ordering Physician: Connie Vazquez Referring Physician: Tasneem Beck Performed By: Kanika Abrams, BENJAMÍNCS, RVT Physical Exam Const alert and no apparent distress Resp Resp Narrative: bilateral crackles. Cardio regular rate, regular rhythm, S1 normal heart sound and S2 normal heart sound GI normal to inspection, nondistended, normoactive bowel sounds, soft to palpation, non-tender and non-distended Extremity normal to inspection Neuro Sensorium / Orientation: awake and alert Assessment & Plan Assessment/Plan (1) Multilobar lung infiltrate: PLAN: Right sided Suspected gram negative Pip/tazo pulmonary toilet +COVID 19. (2) COCO (acute kidney injury): PLAN: suspected prior baseline 1.14 from 03/25 improving. IVF (3) Bilateral leg weakness: PLAN: MRI shows chronic changes. No CVA. Likely due to pneumonia (4) Acute respiratory failure with hypoxia: PLAN: Cannot be qualified as no documentation of hypoxia (5) COVID-19: PLAN: May actually be the cause of the pneumonia. Onset 05/30. Quarantine through 06/09. Start remdesivir and dexamethasone. PLAN: Plan Chronic conditions: * Asthma and COPD: Not in exacerbation. Breathing treatments bronchodilators. * Chronic respiratory failure: Wears 2 L of oxygen with exertion. Breathing treatments with bronchodilators. Titrate oxygen to maintain saturation above 90%. * Paroxysmal A-fib: Was in RVR on admission but heart rate is subsequently improved. atenolol. Give a dose of IV Cardizem bolus x1. To put on Cardizem drip as needed. Continue Eliquis and atenolol as well as Cardizem * Heart failure preserved ejection fraction: Has known EF of 65%. BNP is elevated but she has chronically elevated BNP. She does not appear to be fluid overloaded also. * Hypothyroidism: On Synthroid * Peptic ulcer disease: On PPI DVT prophylaxis: On Coumadin. INR is 1.6. Resume Coumadin and monitor INR. CODE STATUS: Full code Disposition: plan for SNF (patient preference for TCU) Charges/Coding Visit Charges Inpatient E&M: 14411 Subs Hosp L2
[2023-06-01] MEDS: Calcium Carb/Vitamin D 1 TABLET Tablet PO (08:41)
[2023-06-01] MEDS: Multivitamins,Ther W-Minerals Tablet 1 TABLET PO (08:41)
[2023-06-01] MEDS: dilTIAZem CD 120 MG Capsule PO (08:43)
[2023-06-01] MEDS: Fluticasone 0.05% 1 SPRAY NASAL.SRY 2 SPRAY NASAL (08:43)
[2023-06-01] MEDS: predniSONE 5 MG Tablet PO (08:43)
[2023-06-01] MEDS: Furosemide 40 MG Tablet PO ×2 (08:44→16:14)
[2023-06-01] MEDS: Atenolol 25 MG Tablet PO ×2 (08:45→20:41)
[2023-06-01] MEDS: Pantoprazole Sodium 40 MG Tablet PO (08:45)
[2023-06-01] MEDS: Gabapentin 300 MG Capsule PO ×2 (11:14→20:50)
[2023-06-01 14:03] LABS: Alkaline Phosphatase 60 U/L (45-117)
[2023-06-01] MEDS: 0.9% Saline Lock 10 ML Syringe IV ×2 (14:18→22:13)
[2023-06-01] MEDS: dexAMETHasone 10 MG/ML Vial 6 MG IV (14:18)
[2023-06-01] MEDS: Remdesivir 200 MG in 0.9% Normal Saline (250mL Bag) 210 ML 250 MG IV (14:22)
[2023-06-01] MEDS: guaiFENesin 600 MG Tablet PO (20:41)
[2023-06-01] MEDS: Zolpidem Tartrate 5 MG Tablet PO (20:50)
--- NOTE | 2023-06-01 21:55 | EKG12_ITS ---
Test Reason : A-FIB RVR ST/CHANGES Blood Pressure : / mmHG Vent. Rate : 143 BPM Atrial Rate : 000 BPM P-R Int : 000 ms QRS Dur : 076 ms QT Int : 314 ms P-R-T Axes : 000 035 -72 degrees QTc Int : 484 ms Critical Test Result: High HR Atrial fibrillation with rapid ventricular response with premature ventricular or aberrantly conducte d complexes Nonspecific ST-T changes Abnormal ECG When compared with ECG of 30-MAY-2023 10:08, MANUAL COMPARISON REQUIRED, DATA IS UNCONFIRMED Confirmed by JESSIKA HAGEN, RAMY ([id number]), video news editor OTILIA CARVALHO ([id number]) on 06/09/2023 11:05:07 AM Referred By: Confirmed By:JONY ROSEN MD
--- NOTE | 2023-06-01 21:58 | PCM.HOSP.N ---
Hospitalist Note Rate on monitor 150s, asymptomatic, will dose with cardizem 10 mg IV x 1 now and obtain EKG. Does have PAF history.
[2023-06-01] MEDS: dilTIAZem 25 MG/5 ML Vial 10 MG IV BOLUS (22:12)
[2023-06-02] VITALS (8 sets, daily range): BP systolic 123–150; BP diastolic 80–90; PULSE 77–128; RESP 16–20; TEMP 36.3–36.9; O2SAT 96–98; BMI 27.3
[2023-06-02] MEDS: 0.9% Saline Lock 10 ML Syringe IV ×3 (05:47→22:23)
[2023-06-02] MEDS: Piperacil/Tazobactam 3.375 GM in 0.9% Normal Saline (50mL MB+) 50 ML IV ×3 (05:47→20:57)
[2023-06-02] MEDS: Levothyroxine 25 MCG TABLET PO (05:48)
[2023-06-02 06:39] LABS: Hematocrit 33.4 % (37-47); Hemoglobin 10.6 g/dL (12.0-15.0); Mean Corp Hgb Conc 31.7 g/dL (32-36); Mean Corpuscular Hgb 32.2 pg (27.0-32.0); Mean Corpuscular Volume 101.5 fL (81-99); Mean Platelet Vol. 9.8 fl (6.2-12.0); Platelet Count 192 K/mm3 (150-450); RBC Distribution Width CV 14.1 % (11.6-14.6); RBC Distribution Width SD 52.1 fl (35.1-43.9); Red Blood Count 3.29 M/mm3 (4.2-5.4); White Blood Count 6.6 K/mm3 (4.4-11.0)
[2023-06-02 07:06] LABS: ALB/GLOB Ratio 0.6 RATIO (0.9-2.4); AST(SGOT) 18 U/L (15-37); Alanine Aminotransfer ALT/SGPT 40 U/L (13-56); Albumin, Serum 2.4 g/dL (3.2-5.0); Alkaline Phosphatase 65 U/L (45-117); Anion Gap 6 (5-15); BUN 49 mg/dL (7-18); BUN/Creat Ratio 36.6 RATIO (10-20); Calcium,Total 9.3 mg/dL (8.5-10.1); Chloride 105 mmol/L (98-107); Creatinine, Serum 1.34 mg/dL (0.55-1.02); EST Glomerular Filtration Rate 41 mL/min (>60); Est Glom Filt Rate - Afr Amer 50 mL/min (>60); Estimated Creatinine Clearance 27.37 ml/min; Globulin 3.8 g/dL (2.2-4.2); Glucose 122 mg/dL (74-106); Potassium 3.9 mmol/L (3.5-5.1); Protein, Total 6.2 g/dL (6.4-8.2); Sodium Level 143 mmol/L (136-145)
[2023-06-02] MEDS: Ipratropium/Albuterol Sulfate 3 ML AMPUL.NEB INHALATION ×3 (07:11→20:01)
--- NOTE | 2023-06-02 08:10 | PN.HOSP_ITS ---
Reason for Visit Reason for Visit: Diagnoses Acute respiratory failure with hypoxia (05/30/23) Acute kidney failure, unspecified (05/30/23) Other symptoms and signs involving the musculoskeletal system (05/30/23) Other nonspecific abnormal finding of lung field (05/30/23) COVID-19 (05/30/23) Subjective Subjective Breathing okay. On 3 L nasal cannula. Objective Data Objective Data Vital Signs: Vital Signs Temp Pulse Resp BP Pulse Ox O2 Del Method O2 Flow Rate 36.3 C L 94 20 H 129/87 H 98 Nasal Cannula 3 06/02/23 05:50 06/02/23 05:50 06/02/23 05:50 06/02/23 05:50 06/02/23 05:50 06/02/23 06:49 06/02/23 06:49 Oxygen Flow Rate (L/min) 3 Oxygen Delivery Method Nasal Cannula Weight: 65.8 kg Body Mass Index (BMI) 27.3 Intake & Output: Intake and Output for Last 24 Hours 06/01/23 06/01/23 06/02/23 00:59 23:59 23:59 Intake Total 890 / 890 Output Total 550 / 550 Balance 340 / 340 Lab / Micro Data 06/02/23 06:10 06/02/23 06:10 Labs: Laboratory Results - last 24 hr 06/01/23 13:31: Alkaline Phosphatase 60 06/02/23 06:10: WBC 6.6, RBC 3.29 L, Hgb 10.6 L, Hct 33.4 L, MCV 101.5 H, MCH 32.2 H, MCHC 31.7 L, RDW Std Deviation 52.1 H, RDW Coeff of Nicki 14.1, Plt Count 192, MPV 9.8, Sodium 143, Potassium 3.9, Chloride 105, Carbon Dioxide 32.0, Anion Gap 6, BUN 49 H, Creatinine 1.34 H, Estim Creat Clear Calc 27.37, Est GFR (MDRD) Af Amer 50 L, Est GFR (MDRD) Non-Af 41 L, BUN/Creatinine Ratio 36.6 H, Glucose 122 H, Calcium 9.3, Total Bilirubin 0.50, AST 18, ALT 40, Alkaline Phosphatase 65, Total Protein 6.2 L, Albumin 2.4 L, Globulin 3.8, Albumin/Globu rosana Ratio 0.6 L Micro: Microbiology 11/03/23 16:37 Blood Culture (Wb) - Anticubital Left Blood Culture - Preliminary No growth in 48 hours. 06/01/23 11:55 Nasal Secretion SARS-CoV-2 & FLU Antigen (Rapid) - Final SARS-CoV-2 (COVID 19) 05/30/23 12:09 Blood Culture (Wb) - Anticubital Left Blood Culture - Preliminary No growth in 48 hours. Physical Exam Const alert and no apparent distress Constitutional Narrative: Respiratory distress. No conversational dyspnea. HEENT head/scalp atraumatic Neck Neck Narrative: Positive JVD Resp normal respiratory effort, no retractions and no use of accessory muscles Resp Narrative: Bilateral crackles Cardio regular rate, regular rhythm, S1 normal heart sound and S2 normal heart sound GI normal to inspection, nondistended, normoactive bowel sounds, soft to palpation, non-tender and non-distended Extremity normal to inspection and full ROM General Extremity: edema bilateral lower extremity Details: moderate Psych affect normal Assessment & Plan Assessment/Plan (1) Multilobar lung infiltrate: PLAN: Right sided Suspected gram negative Pip/tazo pulmonary toilet +COVID 19. May be primarily COVID 19 or COVID 19 with secondary bacterial infection. Check SCx, strep and legionella antigens. On furosemide (2) COVID-19: PLAN: May actually be the cause of the pneumonia, though cannot rule out secondary bacterial infection. Onset 05/30. Quarantine through 06/09. Started remdesivir and dexamethasone on 06/01. (3) COCO (acute kidney injury): PLAN: suspected prior baseline 1.14 from 03/25 improving. IVF (4) Bilateral leg weakness: PLAN: MRI shows chronic changes. No CVA. Likely due to underling illness. (5) Acute respiratory failure with hypoxia: PLAN: Cannot be qualified as no documentation of hypoxia PLAN: Plan Chronic conditions: * Asthma and COPD: Not in exacerbation. Breathing treatments bronchodilators. * Chronic respiratory failure: Wears 2 L of oxygen with exertion. Breathing treatments with bronchodilators. Titrate oxygen to maintain saturation above 90%. * Paroxysmal A-fib: Was in RVR on admission but heart rate is subsequently impro randa. atenolol. Give a dose of IV Cardizem bolus x1. To put on Cardizem drip as needed. Continue Eliquis and atenolol as well as Cardizem * Heart failure preserved ejection fraction: Has known EF of 65%. BNP is elevated but she has chronically elevated BNP. She does not appear to be fluid overloaded also. * Hypothyroidism: On Synthroid * Peptic ulcer disease: On PPI DVT prophylaxis: On Coumadin. INR is 1.6. Resume Coumadin and monitor INR. CODE STATUS: Full code Disposition: plan for SNF (patient preference for TCU) when medically ready. Charges/Coding Visit Charges Inpatient E&M: 88591 Subs Hosp L2
[2023-06-02] MEDS: Multivitamins,Ther W-Minerals Tablet 1 TABLET PO (09:39)
[2023-06-02] MEDS: Calcium Carb/Vitamin D 1 TABLET Tablet PO (09:39)
[2023-06-02] MEDS: dilTIAZem CD 120 MG Capsule PO (09:39)
[2023-06-02] MEDS: dexAMETHasone 4 MG Tablet 6 MG PO (09:40)
[2023-06-02] MEDS: Furosemide 40 MG Tablet PO (09:40)
[2023-06-02] MEDS: Fluticasone 0.05% 1 SPRAY NASAL.SRY 2 SPRAY NASAL (09:41)
[2023-06-02] MEDS: Pantoprazole Sodium 40 MG Tablet PO (09:41)
[2023-06-02] MEDS: guaiFENesin 600 MG Tablet PO ×2 (09:41→20:56)
[2023-06-02] MEDS: Atenolol 25 MG Tablet PO ×2 (09:41→20:56)
[2023-06-02] MEDS: Remdesivir 100 MG in 0.9% Normal Saline (250mL Bag) 230 ML 250 MG IV (11:15)
[2023-06-02] MEDS: Gabapentin 300 MG Capsule PO ×2 (11:17→20:56)
[2023-06-02] MEDS: Furosemide 40 MG/4 ML Vial IV ×2 (14:39→17:45)
[2023-06-02] MEDS: Warfarin 0.5 MG Tablet PO (17:48)
[2023-06-02] MEDS: Zolpidem Tartrate 5 MG Tablet PO (20:57)
[2023-06-02] MEDS: dilTIAZem 25 MG/5 ML Vial 10 MG IV BOLUS (22:22)
[2023-06-03] VITALS (7 sets, daily range): BP systolic 132–166; BP diastolic 82–92; PULSE 81–124; RESP 16–20; TEMP 36.4–36.8; O2SAT 94–100; BMI 27.3
[2023-06-03] MEDS: 0.9% Saline Lock 10 ML Syringe IV ×3 (05:16→17:32)
[2023-06-03] MEDS: Levothyroxine 25 MCG TABLET PO (05:16)
[2023-06-03] MEDS: Piperacil/Tazobactam 3.375 GM in 0.9% Normal Saline (50mL MB+) 50 ML IV ×2 (05:16→13:49)
[2023-06-03] MEDS: dilTIAZem CD 120 MG Capsule PO (06:58)
[2023-06-03] MEDS: Atenolol 25 MG Tablet PO ×2 (06:58→21:52)
[2023-06-03] MEDS: Ipratropium/Albuterol Sulfate 3 ML AMPUL.NEB INHALATION ×2 (07:29→20:14)
[2023-06-03 08:09] LABS: Pathologist Review Reviewed
[2023-06-03 08:21] LABS: Absolute Lymphocyte Count 0.54 X10^3/uL (0.83-4.51); Absolute Neutrophil Count 7.5 X10^3/uL (2.0-7.7); Basophil# 0.05 X10^3/uL; Basophil% 0.6 % (0-1); Eosinophil# 0.01 X10^3/uL; Eosinophils% 0.1 % (0-5); Hematocrit 36.7 % (37-47); Hemoglobin 11.1 g/dL (12.0-15.0); Lymphocyte # 0.54 X10^3/ul (0.83-4.51); Lymphocyte % 6.4 % (19-41); Mean Corp Hgb Conc 30.2 g/dL (32-36); Mean Corpuscular Hgb 31.5 pg (27.0-32.0); Mean Corpuscular Volume 104.3 fL (81-99); Mean Platelet Vol. 10.5 fl (6.2-12.0); Monocyte# 0.25 X10^3/uL; NRBC Flagged by Analyzer 0 % (0-5); Neutrophil # 7.49 X10^3/uL (2.7-7.7); Neutrophil % 89.2 % (47-70); POSITIVE COUNT YES; POSITIVE DIFFERENTIAL YES; RBC Distribution Width CV 13.8 % (11.6-14.6); RBC Distribution Width SD 53.2 fl (35.1-43.9); Red Blood Count 3.52 M/mm3 (4.2-5.4); White Blood Count 8.4 K/mm3 (4.4-11.0)
[2023-06-03 09:01] LABS: Differential Indicated SCAN CRITERIA MET
[2023-06-03 09:02] LABS: Platelet Estimate ADEQUATE (ADEQ)
[2023-06-03 09:04] LABS: Anion Gap 9 (5-15); BUN 48 mg/dL (7-18); BUN/Creat Ratio 41.7 RATIO (10-20); Calcium,Total 9.1 mg/dL (8.5-10.1); Chloride 104 mmol/L (98-107); Creatinine, Serum 1.15 mg/dL (0.55-1.02); EST Glomerular Filtration Rate 49 mL/min (>60); Est Glom Filt Rate - Afr Amer 59 mL/min (>60); Glucose 156 mg/dL (74-106); Potassium 3.8 mmol/L (3.5-5.1); Sodium Level 142 mmol/L (136-145)
[2023-06-03] MEDS: Fluticasone 0.05% 1 SPRAY NASAL.SRY 2 SPRAY NASAL (09:31)
[2023-06-03] MEDS: dexAMETHasone 4 MG Tablet 6 MG PO (09:31)
[2023-06-03] MEDS: Calcium Carb/Vitamin D 1 TABLET Tablet PO (09:32)
[2023-06-03] MEDS: Furosemide 40 MG/4 ML Vial IV ×2 (09:32→17:32)
[2023-06-03] MEDS: Pantoprazole Sodium 40 MG Tablet PO (09:32)
[2023-06-03] MEDS: guaiFENesin 600 MG Tablet PO ×2 (09:32→21:51)
[2023-06-03] MEDS: Gabapentin 300 MG Capsule PO ×2 (09:32→21:52)
[2023-06-03] MEDS: Multivitamins,Ther W-Minerals Tablet 1 TABLET PO (09:32)
[2023-06-03] MEDS: Remdesivir 100 MG in 0.9% Normal Saline (250mL Bag) 230 ML 250 MG IV (09:38)
[2023-06-03 13:14] LABS: International Normalized Ratio 1.8; Prothrombin Time (Protime)PT. 20.6 SECONDS (11.7-14.9)
--- NOTE | 2023-06-03 14:21 | PN.HOSP_ITS ---
Reason for Visit Reason for Visit: Diagnoses Acute respiratory failure with hypoxia (05/30/23) Acute kidney failure, unspecified (05/30/23) Other symptoms and signs involving the musculoskeletal system (05/30/23) Other nonspecific abnormal finding of lung field (05/30/23) COVID-19 (05/30/23) Subjective Subjective Breathing better. Objective Data Objective Data Vital Signs: Vital Signs Temp Pulse Resp BP Pulse Ox O2 Del Method O2 Flow Rate 36.8 C 124 H 16 139/92 H 94 Room Air 2 06/03/23 09:30 06/03/23 09:30 06/03/23 09:30 06/03/23 09:30 06/03/23 12:05 06/03/23 09:30 06/03/23 12:05 Oxygen Flow Rate (L/min) 2 Oxygen Delivery Method Room Air Weight: 65.8 kg Body Mass Index (BMI) 27.3 Intake & Output: Intake and Output for Last 24 Hours 06/01/23 06/02/23 06/03/23 23:59 23:59 23:59 Intake Total 1790 / 1790 710 / 710 Output Total 1999 / 1999 300 / 300 Balance -210 / -210 410 / 410 Lab / Micro Data 06/03/23 08:00 06/03/23 08:00 Labs: Laboratory Results - last 24 hr 05/30/23 09:52: Diff Path Review Reviewed 06/03/23 08:00: WBC 8.4, RBC 3.52 L, Hgb 11.1 L, Hct 36.7 L, MCV 104.3 H, MCH 31.5, MCHC 30.2 L, RDW Std Deviation 53.2 H, RDW Coeff of Nicki 13.8, Plt Count TNP, MPV 10.5, Immature Gran % (Auto) 0.700, Neut % (Auto) 89.2 H, Lymph % (Auto) 6.4 L, [place] % (Auto) 3.0, Eos % (Auto) 0.1, Baso % (Auto) 0.6, Absolute Neuts (auto) 7.5, Absolute Lymphs (auto) 0.54 L, Nucleated RBC % 0, Differential Comment COMMENT, Platelet Estimate ADEQUATE, Sodium 142, Potassium 3.8, Chloride 104, Carbon Dioxide 29.0, Anion Gap 9, BUN 48 H, Creatinine 1.15 H, Estim Creat Clear Calc 31.90, Est GFR (MDRD) Af Amer 59 L, Est GFR (MDRD) Non-Af 49 L, BUN/Creatinine Ratio 41.7 H, Glucose 156 H, Calcium 9.1 06/03/23 12:55: PT 20.6 H, INR 1.8 Micro: Microbiology 06/01/23 19:55 Sputum, Expectorated/Coughed Gram Stain - Final 06/01/23 19:55 Sputum, Expectorated/Coughed Respiratory Culture - Final Klebsiella pneumoniae sp pneum 06/02/23 18:47 Urine, Clean Catch Streptococcus pneumoniae Antigen (M - Final 06/02/23 18:47 Urine, Clean Catch Legionella Antigen - Final 05/30/23 16:37 Blood Culture (Wb) - Anticubital Left Blood Culture - Preliminary No growth in 48 hours. 06/01/23 11:55 Nasal Secretion SARS-CoV-2 & FLU Antigen (Rapid) - Final SARS-CoV-2 (COVID 19) 05/30/23 12:09 Blood Culture (Wb) - Anticubital Left Blood Culture - Preliminary No growth in 48 hours. Physical Exam Const alert and no apparent distress Resp normal respiratory effort, no retractions, no use of accessory muscles and clear to auscultation bilaterally Cardio regular rate, regular rhythm, S1 normal heart sound and S2 normal heart sound GI normal to inspection, nondistended, normoactive bowel sounds, soft to palpation, non-tender and non-distended Extremity normal to inspection Neuro Sensorium / Orientation: awake and alert Assessment & Plan Assessment/Plan (1) Multilobar lung infiltrate: PLAN: Right sided Gram negative with Klebsiella with positive culture. Change Abx to CTX, treat with abx through the . pulmonary toilet +COVID 19. May be primarily COVID 19 or COVID 19 with secondary bacterial infection. Check SCx, strep and legionella antigens. On furosemide (2) COVID-19: PLAN: May actually be the cause of the pneumonia, though cannot rule out secondary bacterial infection. Onset 05/30. Quarantine through 06/09. Started remdesivir and dexamethasone on 06/01. (3) COCO (acute kidney injury): PLAN: suspected prior baseline 1.14 from 03/25 improving. IVF (4) Bilateral leg weakness: PLAN: MRI shows chronic changes. No CVA. Likely due to underling illness. (5) Acute respiratory failure with hypoxia: PLAN: Cannot be qualified as no documentation of hypoxia PLAN: Plan Chronic conditions: * Asthma and COPD: Not in exacerbation. Breathing treatments bronchodilators. * Chronic respiratory failure: Wears 2 L of oxygen with exertion. Breathing treatments with bronchodilators. Titrate oxygen to maintain saturation above 90%. * Paroxysmal A-fib: Was in RVR on admission but heart rate is subsequently improved. atenolol. Give a dose of IV Cardizem bolus x1. To put on Cardizem drip as needed. Continue Eliquis and atenolol as well as Cardizem * Heart failure preserved ejection fraction: Has known EF of 65%. BNP is elevated but she has chronically elevated BNP. She does not appear to be fluid overloaded also. * Hypothyroidism: On Synthroid * Peptic ulcer disease: On PPI DVT prophylaxis: On Coumadin. INR is 1.6. Resume Coumadin and monitor INR. CODE STATUS: Full code Disposition: plan for SNF (patient preference for TCU) when medically ready. Charges/Coding Visit Charges Inpatient E&M: 31120 Subs Hosp L2
[2023-06-03] MEDS: Ceftriaxone 1 GM/50 ML BAG IV (15:31)
--- NOTE | 2023-06-03 16:45 | CASEMGMT ---
Social Work Reviewed therapy notes and noted patient still needing assist with safety cues in use of DME when ambulating. Donned proper PPE for COVID precautions, and met with patient in room. Patient talkative, friendly, and reporting intent to return home. Patient reports belief that rehab would be helpful to patient, but is only willing to consider [facility]. Explained this is not an option at present time, and attempted to explore patient's willingness to for SNF level of care elsewhere. 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 Patient remains resistant to even considering rehab outside of TCU. Patient reports still having slight issues moving one leg, but reports daughter will be at home with patient through the weekend, so feels this will be helpful. Patient asked about home care coming out daily. Educted that insurance pays for intermittent skilled services in the form of SN, therapies, and then can have a HHC 1-2 times a week for personal care while skilled services in place. Explained that if wants only personal care, then this would be private pay. Patient not as interested in paying privately. 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 This specifications writer spoke with discharge urban planning professor that will need a HHC list printed from [facility]. Plan: To be determined. SNF LOC versus with HHC. -MARINA Villavicencio
[2023-06-03] MEDS: dilTIAZem 25 MG/5 ML Vial 10 MG IV BOLUS (21:51)
[2023-06-03] MEDS: oxyCODONE 5 MG Tablet PO (21:52)
[2023-06-03] MEDS: Zolpidem Tartrate 5 MG Tablet PO (21:52)
[2023-06-04 03:00] VITALS: BP 132/85; PULSE 98; RESP 16; TEMP 36.6; O2SAT 97
[2023-06-04 04:35] LABS: Absolute Lymphocyte Count 0.58 X10^3/uL (0.83-4.51); Absolute Neutrophil Count 5.5 X10^3/uL (2.0-7.7); Basophil# 0.01 X10^3/uL; Basophil% 0.2 % (0-1); Hematocrit 33.6 % (37-47); Hemoglobin 10.8 g/dL (12.0-15.0); Lymphocyte # 0.58 X10^3/ul (0.83-4.51); Lymphocyte % 8.9 % (19-41); Mean Corp Hgb Conc 32.1 g/dL (32-36); Mean Corpuscular Hgb 32.6 pg (27.0-32.0); Mean Corpuscular Volume 101.5 fL (81-99); Mean Platelet Vol. 9.8 fl (6.2-12.0); Monocyte# 0.31 X10^3/uL; Monocyte% 4.8 % (0-10); NRBC Flagged by Analyzer 0 % (0-5); Neutrophil # 5.54 X10^3/uL (2.7-7.7); Neutrophil % 85.3 % (47-70); POSITIVE DIFFERENTIAL YES; Platelet Count 229 K/mm3 (150-450); RBC Distribution Width CV 13.5 % (11.6-14.6); Red Blood Count 3.31 M/mm3 (4.2-5.4); White Blood Count 6.5 K/mm3 (4.4-11.0)
[2023-06-04 04:55] LABS: Anion Gap 7 (5-15); BUN 49 mg/dL (7-18); BUN/Creat Ratio 43.8 RATIO (10-20); Calcium,Total 8.9 mg/dL (8.5-10.1); Chloride 102 mmol/L (98-107); Creatinine, Serum 1.12 mg/dL (0.55-1.02); EST Glomerular Filtration Rate 50 mL/min (>60); Est Glom Filt Rate - Afr Amer 61 mL/min (>60); Estimated Creatinine Clearance 32.75 ml/min; Glucose 128 mg/dL (74-106); Potassium 3.2 mmol/L (3.5-5.1); Sodium Level 144 mmol/L (136-145)
[2023-06-04] MEDS: Levothyroxine 25 MCG TABLET PO (05:55)
[2023-06-04 06:06] LABS: Differential Indicated SCAN CRITERIA MET
[2023-06-04 06:13] LABS: Differential Comment SCANNED
[2023-06-04] MEDS: Ipratropium/Albuterol Sulfate 3 ML AMPUL.NEB INHALATION ×2 (07:14→13:01)
[2023-06-04 07:15] VITALS: PULSE 98; RESP 22; O2SAT 94
[2023-06-04 07:56] VITALS: BP 142/73; PULSE 118; RESP 18; TEMP 36.4; O2SAT 97
[2023-06-04] MEDS: dexAMETHasone 4 MG Tablet 6 MG PO (07:57)
[2023-06-04] MEDS: Atenolol 25 MG Tablet PO (07:57)
[2023-06-04] MEDS: dilTIAZem CD 120 MG Capsule PO (07:58)
[2023-06-04] MEDS: guaiFENesin 600 MG Tablet PO (07:58)
[2023-06-04] MEDS: Calcium Carb/Vitamin D 1 TABLET Tablet PO (07:58)
[2023-06-04] MEDS: Gabapentin 300 MG Capsule PO (07:58)
[2023-06-04] MEDS: Multivitamins,Ther W-Minerals Tablet 1 TABLET PO (07:58)
[2023-06-04] MEDS: Pantoprazole Sodium 40 MG Tablet PO (07:59)
--- NOTE | 2023-06-04 08:46 | CASEMGMT ---
Discharge Planning A list of?HH ?providers including quality and resource use data and consistent with the patient's preferred geographic region, medical needs, and insurance network was created in [employer] Guide.? This list was provided to the SW. Soledad Martinez, Discharge Planning Asst.
--- NOTE | 2023-06-04 08:59 | PN.HOSP_ITS ---
Reason for Visit Reason for Visit: Diagnoses Acute respiratory failure with hypoxia (05/30/23) Acute kidney failure, unspecified (05/30/23) Other symptoms and signs involving the musculoskeletal system (05/30/23) Other nonspecific abnormal finding of lung field (05/30/23) COVID-19 (05/30/23) Subjective Subjective Breathing better. Oxygen weaned down to 2liter/min. Objective Data Objective Data Vital Signs: Vital Signs Temp Pulse Resp BP Pulse Ox O2 Del Method O2 Flow Rate 36.4 C L 118 H 18 142/73 H 97 Nasal Cannula 2 06/04/23 07:56 06/04/23 07:56 06/04/23 07:56 06/04/23 07:56 06/04/23 07:56 06/04/23 08:00 06/04/23 08:00 Oxygen Flow Rate (L/min) 2 Oxygen Delivery Method Nasal Cannula Weight: 65.8 kg Body Mass Index (BMI) 27.3 Intake & Output: Intake and Output for Last 24 Hours 06/02/23 06/03/23 06/04/23 23:59 23:59 23:59 Intake Total 1790 / 1790 1141.04 / 1381.04 480 / 480 Output Total 1999 / 1999 750 / 1150 800 / 800 Balance -210 / -210 391.04 / 231.04 -320 / -320 Lab / Micro Data 06/04/23 04:10 06/04/23 04:10 Labs: Laboratory Results - last 24 hr 06/03/23 08:00: WBC 8.4, RBC 3.52 L, Hgb 11.1 L, Hct 36.7 L, MCV 104.3 H, MCH 31.5, MCHC 30.2 L, RDW Std Deviation 53.2 H, RDW Coeff of Nicki 13.8, Plt Count TNP, MPV 10.5, Immature Gran % (Auto) 0.700, Neut % (Auto) 89.2 H, Lymph % (Auto) 6.4 L, [place] % (Auto) 3.0, Eos % (Auto) 0.1, Baso % (Auto) 0.6, Absolute Neuts (auto) 7.5, Absolute Lymphs (auto) 0.54 L, Nucleated RBC % 0, Differential Comment COMMENT, Platelet Estimate ADEQUATE, Sodium 142, Potassium 3.8, Chloride 104, Carbon Dioxide 29.0, Anion Gap 9, BUN 48 H, Creatinine 1.15 H, Estim Creat Clear Calc 31.90, Est GFR (MDRD) Af Amer 59 L, Est GFR (MDRD) Non-Af 49 L, BUN/Creatinine Ratio 41.7 H, Glucose 156 H, Calcium 9.1 06/03/23 12:55: PT 20.6 H, INR 1.8 06/04/23 04:10: WBC 6.5, RBC 3.31 L, Hgb 10.8 L, Hct 33.6 L, MCV 101.5 H, MCH 32.6 H, MCHC 32.1 D, RDW Std Deviation 51.0 H, RDW Coeff of Nicki 13.5, Plt Count 229, MPV 9.8, Immature Gran % (Auto) 0.800, Neut % (Auto) 85.3 H, Lymph % (Auto) 8.9 L, [place] % (Auto) 4.8, Eos % (Auto) 0.0, Baso % (Auto) 0.2, Absolute Neuts (auto) 5.5, Absolute Lymphs (auto) 0.58 L, Nucleated RBC % 0, Differential Comment SCANNED, Sodium 144, Potassium 3.2 L, Chloride 102, Carbon Dioxide 35.0 H, Anion Gap 7, BUN 49 H, Creatinine 1.12 H, Estim Creat Clear Calc 32.75, Est GFR (MDRD) Af Amer 61, Est GFR (MDRD) Non-Af 50 L, BUN/Creatinine Ratio 43.8 H, Glucose 128 H, Calcium 8.9 Micro: Microbiology 06/01/23 19:55 Sputum, Expectorated/Coughed Gram Stain - Final 06/01/23 19:55 Sputum, Expectorated/Coughed Respiratory Culture - Final Klebsiella pneumoniae sp pneum 06/02/23 18:47 Urine, Clean Catch Streptococcus pneumoniae Antigen (M - Final 06/02/23 18:47 Urine, Clean Catch Legionella Antigen - Final 05/30/23 16:37 Blood Culture (Wb) - Anticubital Left Blood Culture - Preliminary No growth in 48 hours. 06/01/23 11:55 Nasal Secretion SARS-CoV-2 & FLU Antigen (Rapid) - Final SARS-CoV-2 (COVID 19) 05/30/23 12:09 Blood Culture (Wb) - Anticubital Left Blood Culture - Preliminary No growth in 48 hours. Physical Exam Const alert and no apparent distress HEENT moist oral mucous membranes Resp normal respiratory effort and no retractions Resp Narrative: bibasilar crackles. Cardio regular rate, regular rhythm, S1 normal heart sound and S2 normal heart sound GI normal to inspection, nondistended, normoactive bowel sounds, soft to palpation, non-tender and non-distended Assessment & Plan Assessment/Plan (1) Multilobar lung infiltrate: PLAN: Right sided Gram negative with Klebsiella with positive culture. Change Abx to CTX, treat with abx through the . pulmonary toilet +COVID 19. May be primarily COVID 19 or COVID 19 with secondary bacterial infection. Check SCx, strep and legionella antigens. On furosemide (2) COVID-19: PLAN: May actually be the cause of the pneumonia, though cannot rule out secondary bacterial infection. Onset 05/30. Quarantine through 06/09. Started remdesivir and dexamethasone on 06/01. (3) COCO (acute kidney injury): PLAN: suspected prior baseline 1.14 from 03/25 improving. IVF (4) Bilateral leg weakness: PLAN: MRI shows chronic changes. No CVA. Likely due to underling illness. Plan for home with [facility]. (5) Acute respiratory failure with hypoxia: PLAN: Cannot be qualified as no documentation of hypoxia PLAN: Plan Chronic conditions: * Asthma and COPD: Not in exacerbation. Breathing treatments bronchodilators. * Chronic respiratory failure: Wears 2 L of oxygen with exertion. Breathing treatments with bronchodilators. Titrate oxygen to maintain saturation above 90%. * Paroxysmal A-fib: Was in RVR on admission but heart rate is subsequently improved. atenolol. Give a dose of IV Cardizem bolus x1. To put on Cardizem drip as needed. Continue Eliquis and atenolol as well as Cardizem. INR subtherapuetic. Increase dosing to 1mg/d, but will give a total of 2.5 today. * Heart failure preserved ejection fraction: Has known EF of 65%. BNP is elevated but she has chronically elevated BNP. She does not appear to be fluid overloaded also. * Hypothyroidism: On Synthroid * Peptic ulcer disease: On PPI DVT prophylaxis: On Coumadin. INR is 1.6. Resume Coumadin and monitor INR. CODE STATUS: Full code Disposition: plan for SNF (patient preference for TCU) when medically ready.
[2023-06-04] MEDS: Fluticasone 0.05% 1 SPRAY NASAL.SRY 2 SPRAY NASAL (09:28)
[2023-06-04] MEDS: Furosemide 40 MG/4 ML Vial IV (09:29)
[2023-06-04] MEDS: 0.9% Saline Lock 10 ML Syringe IV (09:29)
[2023-06-04] MEDS: Ceftriaxone 1 GM/50 ML BAG IV (09:30)
[2023-06-04 10:01] VITALS: BMI 27.3
[2023-06-04 10:23] VITALS: O2SAT 97; O2SAT 98
--- NOTE | 2023-06-04 10:29 | CASEMGMT ---
Addendum entered by Shea Geronimo 06/04/23 12:12: MOSHE NIXON updated by [facility] that they are able to accept the patient with start of care planned for tomorrow. MOSHE NIXON updated SW regarding acceptance. DC plan updated. Original Note: MOSHE NIXON updated by SW that patient would like to discharge home with [facility]. List provided to patient via nursing. Per nursing patient would like [facility]. MOSHE NIXON sent referral to [facility], awaiting acceptance. MOSHE NIXON updated SW. CM will continue to follow this patient and plan for a safe discharge.
[2023-06-04] MEDS: Acetaminophen 500 MG Tablet 1000 MG PO (10:52)
[2023-06-04] MEDS: Remdesivir 100 MG in 0.9% Normal Saline (250mL Bag) 230 ML 250 MG IV (10:53)
[2023-06-04] MEDS: Potassium Chloride Oral Tablet 20 MEQ 40 MEQ PO (10:53)
--- NOTE | 2023-06-04 12:59 | CASEMGMT ---
Social Work Spoke with Martina in admissions at [facility] T[facility] and [facility]. No beds available at this time, Friday and Friday respectively, to even consider referral. Per physician, patient medically ready for discharge today. Received handoff from MOSHE NIXON regarding [facility] able to start care on 06.05.23. Donned proper PPE for COVID precautions. Met with patient and daughter Shakila in room. Updated about [facility] TCU/RU not being an option right now. Patient maintains that will not consider any community based SNF, even for rehab. Daughter reports will be staying with patient through the weekend, and has no concerns about caring for patient. Patient reports to also have grandchildren who can check in on patient. Patient plans to get a tray for her walker, and maybe a BSC. This blurb writer discussed medical alert as a safety net when home alone. Patient and daughter both receptive to having a list of options. Educated patient and daughter to [facility] start of care tomorrow. Reinforced visits are intermittent. Patient voiced understanding. Printed medical alert options, along with private duty care options should patient ever need this. Spoke with Samra MESA who agrees to give to patient when discharge instructions are presented. 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 No other services requested or indicated. -MARINA Villavicencio
--- NOTE | 2023-06-04 13:00 | PCM.DC.SUM ---
Providers Date of Admission: 05/30/23 Primary Care Physician: Dr. Tasneem Beck MD Reason For Visit: STROKE LIKE SYMPTOMS Diagnosis Discharge Diagnosis (1) Multilobar lung infiltrate: Status: Acute Code(s): R91.8 - Other nonspecific abnormal finding of lung field Plan: Right sided Gram negative with Klebsiella with positive culture. Change Abx to CTX, treat with abx through the . pulmonary toilet +COVID 19. May be primarily COVID 19 or COVID 19 with secondary bacterial infection. Check SCx, strep and legionella antigens. On furosemide (2) COVID-19: Status: Acute Code(s): U07.1 - COVID-19 Plan: May actually be the cause of the pneumonia, though cannot rule out secondary bacterial infection. Onset 05/30. Quarantine through 06/09. Started remdesivir and dexamethasone on 06/01. (3) COCO (acute kidney injury): Status: Acute Code(s): N17.9 - Acute kidney failure, unspecified Plan: suspected prior baseline 1.14 from 03/25 improving. IVF (4) Bilateral leg weakness: Status: Acute Code(s): R29.898 - Other symptoms and signs involving the musculoskeletal system Plan: MRI shows chronic changes. No CVA. Likely due to underling illness. Plan for home with [facility]. (5) Acute respiratory failure with hypoxia: Status: Chronic Code(s): J96.01 - Acute respiratory failure with hypoxia Plan: Cannot be qualified as no documentation of hypoxia Plan Chronic conditions: Asthma and COPD: Not in exacerbation. Breathing treatments bronchodilators. Chronic respiratory failure: Wears 2 L of oxygen with exertion. Breathing treatments with bronchodilators. Titrate oxygen to maintain saturation above 90%. Paroxysmal A-fib: Was in RVR on admission but heart rate is subsequently improved. atenolol. Give a dose of IV Cardizem bolus x1. To put on Cardizem drip as needed. Continue Eliquis and atenolol as well as Cardizem. INR subtherapuetic. Increase dosing to 1mg/d, but will give a total of 2.5 today. Heart failure preserved ejection fraction: Has known EF of 65%. BNP is elevated but she has chronically elevated BNP. She does not appear to be fluid overloaded also. Hypothyroidism: On Synthroid Peptic ulcer disease: On PPI DVT prophylaxis: On Coumadin. INR is 1.6. Resume Coumadin and monitor INR. CODE STATUS: Full code Disposition: discharge home with [facility]. Medications at Discharge Home Medications calcium citrate 200 mg calcium-vitamin D3 6.25 mcg (250 unit) tablet 1 ea PO DAILY SUPPLEMENT 08/12/14 zolpidem 10 mg tablet 10 mg PO QHS PRN sleep 03/13/18 gabapentin 300 mg capsule 300 mg PO BID 09/15/20 acetaminophen 500 mg tablet 1,000 mg PO DAILY PRN PRN Pain 1-10 Or Fever 09/25/20 coenzyme Q10 100 mg capsule 100 mg PO DAILY SUPPLEMENT 09/25/20 levothyroxine 25 mcg tablet 25 mcg PO DAILY THYROID 09/25/20 magnesium 30 mg tablet 30 mg PO DAILY SUPPLEMENT 09/25/20 multivitamin with minerals 1 tab PO DAILY SUPPLEMETN 09/25/20 warfarin 1 mg tablet 0.5 mg PO MOWEFR BLOOD THINNER 10/19/21 warfarin 1 mg tablet 1 mg PO SUTUTHSA 10/19/21 atenolol 25 mg tablet 25 mg PO BID HEART #60 tabs 10/22/21 pantoprazole 40 mg tablet,delayed release (Protonix) 40 mg PO DAILY 04/22/22 albuterol sulfate 90 mcg/actuation aerosol inhaler 2 puff inhalation Q4H PRN shortness of breath or wheezing #8.5 grams 05/07/22 fluticasone propionate 50 mcg/actuation nasal spray,suspension (Flonase Allergy Relief) 2 spray intranasal QDAY #16 grams 05/07/22 furosemide 40 mg tablet 40 mg PO BID Swelling #60 tabs 12/10/22 diltiazem HCl 120 mg capsule,extended release 24 hr 120 mg PO DAILY #60 caps 02/10/23 Nebulizer machine #1 ea 05/08/23 budesonide 1 mg/2 mL suspension for nebulization 1 mg (2 mL) inhalation BID #60 mL 05/08/23 ipratropium 0.5 mg-albuterol 3 mg (2.5 mg base)/3 mL nebulization soln 3 ml inhalation Q4H PRN PRN SOB &/OR WHEEZING #180 mL 05/08/23 leflunomide 10 mg tablet 5 mg PO DAILY 05/08/23 buprenorphine 10 mcg/hour weekly transdermal patch 1 patch topical Q7D pain 05/30/23 fluticasone fur. 100 mcg-umeclid 62.5 mcg-vilant 25 mcg inhalat.powder (Trelegy Ellipta) 1 inh inhalation Q24H lungs 05/30/23 hydrocodone-acetaminophen 5-325mg 5mg-325mg 1 tab PO Q8H 05/30/23 prednisone 5 mg tablet 5 mg PO DAILY 05/30/23 cephalexin 500 mg capsule 500 mg PO Q8H #8 caps 06/04/23 dexamethasone 6 mg tablet 6 mg PO DAILY #8 tabs 06/04/23 potassium chloride 20 mEq tablet,extended release(part/cryst) 20 meq PO DAILY #30 tabs 06/04/23 Hospital Course Operations None Procedures None Summary of Care Provided Minutes Spent on Discharge: 45 Hospital Course: Patient presents with shortness of breath and hypoxia. Patient was subsequent found to have Klebsiella pneumonia as well as COVID-19. Patient was treated with antibiotics as well as remdesivir and dexamethasone. Complicated this patient may have some component of acute heart failure with preserved ejection fraction. EF is 55% from echocardiogram on the fourth. Patient did well with diuresis as well. Patient does take 40 mg of furosemide at home. She we will have the patient continue with that upon discharge. Weight / BMI Weight Weight: 65.8 kg Body Mass Index (BMI) 27.3 ABG / Lab / Microbiology Data 06/04/23 04:10 06/04/23 04:10 Laboratory: Laboratory Results - last 24 hr 06/03/23 12:55: PT 20.6 H, INR 1.8 06/04/23 04:10: WBC 6.5, RBC 3.31 L, Hgb 10.8 L, Hct 33.6 L, MCV 101.5 H, MCH 32.6 H, MCHC 32.1 D, RDW Std Deviation 51.0 H, RDW Coeff of Nicki 13.5, Plt Count 229, MPV 9.8, Immature Gran % (Auto) 0.800, Neut % (Auto) 85.3 H, Lymph % (Auto) 8.9 L, [place] % (Auto) 4.8, Eos % (Auto) 0.0, Baso % (Auto) 0.2, Absolute Neuts (auto) 5.5, Absolute Lymphs (auto) 0.58 L, Nucleated RBC % 0, Differential Comment SCANNED, Sodium 144, Potassium 3.2 L, Chloride 102, Carbon Dioxide 35.0 H, Anion Gap 7, BUN 49 H, Creatinine 1.12 H, Estim Creat Clear Calc 32.75, Est GFR (MDRD) Af Amer 61, Est GFR (MDRD) Non-Af 50 L, BUN/Creatinine Ratio 43.8 H, Glucose 128 H, Calcium 8.9 Microbiology: Microbiology 05/30/23 12:09 Blood Culture (Wb) - Anticubital Left Blood Culture - Final No growth in 5 days. 06/01/23 19:55 Sputum, Expectorated/Coughed Gram Stain - Final 06/01/23 19:55 Sputum, Expectorated/Coughed Respiratory Culture - Final Klebsiella pneumoniae sp pneum 06/02/23 18:47 Urine, Clean Catch Streptococcus pneumoniae Antigen (M - Final 06/02/23 18:47 Urine, Clean Catch Legionella Antigen - Final 05/30/23 16:37 Blood Culture (Wb) - Anticubital Left Blood Culture - Preliminary No growth in 48 hours. 06/01/23 11:55 Nasal Secretion SARS-CoV-2 & FLU Antigen (Rapid) - Final SARS-CoV-2 (COVID 19) D/C Instructions Discharge Diet: Low fat / Low cholesterol, 8 Cup Fluid Restriction and 2000 mg Sodium Diet Meaningful Use Info Meaningful Use Diagnoses (Choose all that apply): CHF CHF MAI/ARB ordered at discharge?: Yes Documented LVEF (%): 65 Discharge Plan Admission Admit Date/Time: 05/30/23 12:17 Primary Reason for Your Visit: Pneumonia. COVID 19. Attending Provider: Trenton Mccarty Primary Care Provider: Tasneem Beck Consulting Providers: Connie Vazquez Instructions Additional Instructions / Restrictions: He tested positive for COVID-19 on the fifth but we will presume that the onset was the third. Would recommend you quarantine through the . Is possible you may have been sick with COVID before but unfortunate no have any results to verify that. You will be on steroids to help with recovering from the COVID infection. He would not be able to get a COVID-vaccine for 3 months so that we will be the earliest would be August. He also have a bacterial pneumonia as well which she will be on antibiotics. We are still daily. Notify your physician if you put on more than 1 pound 1 day or 5 pounds in 1 week. Discharge Orders/Prescriptions Prescriptions: New cephalexin 500 mg capsule 500 mg PO Q8H Qty: 8 0RF dexamethasone 6 mg tablet 6 mg PO DAILY Qty: 8 0RF potassium chloride 20 mEq tablet,ER particles/crystals 20 meq PO DAILY Qty: 30 0RF Continued gabapentin 300 mg capsule 300 mg PO BID pantoprazole [Protonix] 40 mg tablet,delayed release (DR/EC) 40 mg PO DAILY albuterol sulfate 90 mcg/actuation HFA aerosol inhaler 2 puff inhalation Q4H PRN (Reason: shortness of breath or wheezing) Qty: 8.5 6RF Rx Instructions: administer with spacer fluticasone propionate [Flonase Allergy Relief] 50 mcg/actuation spray,suspension 2 spray intranasal QDAY Qty: 16 3RF Rx Instructions: administer into each nostril leflunomide 10 mg tablet 5 mg PO DAILY Patient Comments: Take ONE-HALF TABLET BY MOUTH DAILY budesonide 1 mg/2 mL suspension for nebulization 1 mg inhalation BID Qty: 60 12RF ipratropium-albuterol 0.5 mg-3 mg(2.5 mg base)/3 mL solution for nebulization 3 ml inhalation Q4H PRN PRN (Reason: SOB &/OR WHEEZING) Qty: 180 12RF (DME) Nebulizer machine See Rx Instructions .ROUTE .MEDSUPPLY Qty: 1 0RF Rx Instructions: As directed zolpidem 10 mg tablet 10 mg PO QHS PRN (Reason: sleep) Patient Comments: SLEEPING PILL calcium citrate-vitamin D3 1 EACH tablet 1 ea PO DAILY Patient Comments: supplement acetaminophen 500 MG tablet 1,000 mg PO DAILY PRN PRN (Reason: Pain 1-10 Or Fever) multivitamin with minerals 1 EACH tablet 1 tab PO DAILY magnesium 30 MG tablet 30 mg PO DAILY coenzyme Q10 100 MG capsule 100 mg PO DAILY levothyroxine 25 MCG tablet 25 mcg PO DAILY buprenorphine 10 mcg/hour patch weekly 1 patch topical Q7D Patient Comments: PT STATES NOT USING BECAUSE IT DOES NOT HELP Trelegy Ellipta 100-62.5-25 mcg blister with device 1 inh INHALATION Q24H Patient Comments: INHALE 1 PUFF DAILY for SHORTNESS OF BREATH hydrocodone-acetaminophen 5-325 mg tablet 1 tab PO Q8H Patient Comments: PT STATES NOT TAKING BECAUSE DOES NOT HELP PAIN prednisone 5 mg tablet 5 mg PO DAILY Patient Comments: Take 1 Tablet(s) Oral every morning warfarin 1 mg tablet 0.5 mg PO Protocol: Dose Management Condition: Friday Dose/Route: 1 mg Instruction: 1 x 1 mg tablet Condition: Friday Dose/Route: 0 mg Instruction: 0 tablets Condition: Friday Dose/Route: 0.5 mg Instruction: 0.5 x 1 mg tablets Condition: Friday Dose/Route: 1 mg Instruction: 1 x 1 mg tablet Condition: Dose/Route: 0.5 mg Instruction: 0.5 x 1 mg tablets Condition: Friday Dose/Route: 1 mg Instruction: 1 x 1 mg tablet Condition: Friday Dose/Route: 0.5 mg Instruction: 0.5 x 1 mg tablets Protocol Text: Adjustment Start Date: Friday05/06/22 INR Value: 3.6 INR Date: 05/06/22 Recheck Date: 05/13/22 Rx Instructions: Managed by Dr. Beck warfarin 1 mg tablet 1 mg PO [facility] Protocol: Dose Management Condition: Friday Dose/Route: 1 mg Instruction: 1 x 1 mg tablet Condition: Friday Dose/Route: 0 mg Instruction: 0 tablets Condition: Friday Dose/Route: 0.5 mg Instruction: 0.5 x 1 mg tablets Condition: Friday Dose/Route: 1 mg Instruction: 1 x 1 mg tablet Condition: Dose/Route: 0.5 mg Instruction: 0.5 x 1 mg tablets Condition: Friday Dose/Route: 1 mg Instruction: 1 x 1 mg tablet Condition: Friday Dose/Route: 0.5 mg Instruction: 0.5 x 1 mg tablets Protocol Text: Adjustment Start Date: Friday05/06/22 INR Value: 3.6 INR Date: 05/06/22 Recheck Date: 05/13/22 Rx Instructions: Managed by Dr. Beck atenolol 25 mg tablet 25 mg PO BID Qty: 60 11RF furosemide 40 mg tablet 40 mg PO BID Qty: 60 11RF diltiazem HCl 120 mg capsule,extended release 24hr 120 mg PO DAILY Qty: 60 11RF Referrals / Follow Up: [facility] [Provider Group] - 07/01/23 3:30 pm Tasneem Beck MD [Primary Care Provider] - Within 2 Weeks Disposition Disposition (needs filled in before D/C Order can be placed): Home Health Service Charges/Coding Visit Charges Inpatient E&M: 09449 Disch Hosp >30min
[2023-06-04 13:01] VITALS: PULSE 102; RESP 20
--- NOTE | 2023-06-04 13:30 | CASEMGMT ---
Advanced Directive Validation Spoke with patient who reports to have advanced directives in place, prepared by [employer]. Reports to have the paperwork at home, but unable to bring to hospital at this time. Patient agrees to bring forms in at a later time. Patient reports son Nirmal Tompkisn is the [facility]. Number for Nirmal is [phone]. Per patient, the younger son, who lives in [place] is listed as the alternate. -MARINA Villavicencio
[2023-06-04 14:11] VITALS: BP 139/69; PULSE 105; RESP 18; TEMP 36.6; O2SAT 94
== END 2023-06-04 15:17 | disposition home health service (06) | DRG 177 ==
LOC: ED 12:13 → PCU 13:52
PROVIDERS: Admitting Provider Student in an Organized Health Care Education/Training Program; Emergency Provider Emergency Medicine; PCP Internal Medicine
DX: U07.1 COVID-19 (principal); J12.82 Pneumonia due to coronavirus disease 2019; I50.31 Acute diastolic (congestive) heart failure; J15.0 Pneumonia due to Klebsiella pneumoniae; N17.9 Acute kidney failure, unspecified; J96.10 Chronic respiratory failure, unspecified whether with hypoxia or hypercapnia; I50.32 Chronic diastolic (congestive) heart failure; J44.0 Chronic obstructive pulmonary disease with (acute) lower respiratory infection; I11.0 Hypertensive heart disease with heart failure; I48.0 Paroxysmal atrial fibrillation; E03.9 Hypothyroidism, unspecified; E78.5 Hyperlipidemia, unspecified; K27.9 Peptic ulcer, site unspecified, unspecified as acute or chronic, without hemorrhage or perforation; M62.81 Muscle weakness (generalized); R47.81 Slurred speech; Z99.81 Dependence on supplemental oxygen; Z79.01 Long term (current) use of anticoagulants; Z79.899 Other long term (current) drug therapy; Z86.73 Personal history of transient ischemic attack (TIA), and cerebral infarction without residual deficits; Z87.891 Personal history of nicotine dependence; Z23 Encounter for immunization
CPT/HCPCS: 36415; 70450; 70496; 70498; 70551; 71045; 71275; 80048; 80053; 80061; 82962; 83880; 84075; 84484; 85025; 85027; 85610; 85730; 87040; 87070; 87077; 87186; 87205; 87428; 87449; 92507; 92523; 92526; 92610; 93005; 93306; 94640; 94668; 94762; 97162; 97166; 97530; 97535; 97802; 99252; 99284; J7050; Q9967; 90662; A4216; G0463; J0248; J0696; J1940

== ENCOUNTER 2023-06-16 09:35 | Outpatient (RCR) | payer MEDICARE, SELFPAY ==
[2023-06-16 09:52] LABS: Hematocrit 37.5 % (37-47); Hemoglobin 11.5 g/dL (12.0-15.0); Mean Corp Hgb Conc 30.7 g/dL (32-36); Mean Corpuscular Hgb 31.8 pg (27.0-32.0); Mean Corpuscular Volume 103.6 fL (81-99); Platelet Count 240 K/mm3 (150-450); RBC Distribution Width CV 14.1 % (11.6-14.6); RBC Distribution Width SD 53.9 fl (35.1-43.9); Red Blood Count 3.62 M/mm3 (4.2-5.4); White Blood Count 9.6 K/mm3 (4.4-11.0)
[2023-06-16 10:03] LABS: Anion Gap 3 (5-15); BUN 31 mg/dL (7-18); BUN/Creat Ratio 30.7 RATIO (10-20); Calcium,Total 9.1 mg/dL (8.5-10.1); Chloride 108 mmol/L (98-107); Creatinine, Serum 1.01 mg/dL (0.55-1.02); EST Glomerular Filtration Rate 57 mL/min (>60); Est Glom Filt Rate - Afr Amer 69 mL/min (>60); Glucose 143 mg/dL (74-106); Potassium 4.4 mmol/L (3.5-5.1); Sodium Level 143 mmol/L (136-145)
== END 2023-06-26 18:00 | disposition home or self-care (01) ==
LOC: HHLAB 09:35
PROVIDERS: PCP Internal Medicine; Referring Provider Internal Medicine; Visit Provider Internal Medicine
DX: U07.1 COVID-19 (principal); J15.0 Pneumonia due to Klebsiella pneumoniae; N17.9 Acute kidney failure, unspecified; J44.0 Chronic obstructive pulmonary disease with (acute) lower respiratory infection
CPT/HCPCS: 80048; 85027

== ENCOUNTER → 2023-09-24 | Outpatient (CLI) | payer MEDICARE, SELFPAY ==
[2023-09-24 16:35] LABS: ALB/GLOB Ratio 1.1 RATIO (0.9-2.4); AST(SGOT) 28 U/L (15-37); Alanine Aminotransfer ALT/SGPT 29 U/L (13-56); Albumin, Serum 3.8 g/dL (3.2-5.0); Alkaline Phosphatase 82 U/L (45-117); Anion Gap 9 (5-15); BUN 47 mg/dL (7-18); BUN/Creat Ratio 29.6 RATIO (10-20); Calcium,Total 10.7 mg/dL (8.5-10.1); Chloride 89 mmol/L (98-107); Creatinine, Serum 1.59 mg/dL (0.55-1.02); EST Glomerular Filtration Rate 34 mL/min (>60); Est Glom Filt Rate - Afr Amer 41 mL/min (>60); Globulin 3.6 g/dL (2.2-4.2); Glucose 97 mg/dL (74-106); Potassium 2.8 mmol/L (3.5-5.1); Protein, Total 7.4 g/dL (6.4-8.2); Sodium Level 134 mmol/L (136-145)
== END | disposition home or self-care (01) ==
LOC: MTLAB 12:32
PROVIDERS: PCP Internal Medicine; Referring Provider Internal Medicine Rheumatology; Visit Provider Internal Medicine Rheumatology
DX: M06.4 Inflammatory polyarthropathy (principal); R76.8 Other specified abnormal immunological findings in serum; M19.041 Primary osteoarthritis, right hand; Z79.899 Other long term (current) drug therapy
CPT/HCPCS: 36415; 80053

== ENCOUNTER → 2023-09-26 | Outpatient (CLI) | payer MEDICARE, SELFPAY ==
[2023-09-26 15:45] LABS: Absolute Lymphocyte Count 3.66 X10^3/uL (0.83-4.51); Absolute Neutrophil Count 3.7 X10^3/uL (2.0-7.7); Basophil# 0.02 X10^3/uL; Basophil% 0.2 % (0-1); Eosinophil# 0.25 X10^3/uL; Hematocrit 40.3 % (37-47); Hemoglobin 13.1 g/dL (12.0-15.0); Lymphocyte # 3.66 X10^3/ul (0.83-4.51); Lymphocyte % 43.3 % (19-41); Mean Corp Hgb Conc 32.5 g/dL (32-36); Mean Corpuscular Hgb 29.8 pg (27.0-32.0); Mean Corpuscular Volume 91.6 fL (81-99); Mean Platelet Vol. 10.1 fl (6.2-12.0); Monocyte# 0.78 X10^3/uL; Monocyte% 9.2 % (0-10); NRBC Flagged by Analyzer 0 % (0-5); Neutrophil # 3.73 X10^3/uL (2.7-7.7); Neutrophil % 44.2 % (47-70); Platelet Count 328 K/mm3 (150-450); RBC Distribution Width CV 13.6 % (11.6-14.6); RBC Distribution Width SD 46.3 fl (35.1-43.9); White Blood Count 8.5 K/mm3 (4.4-11.0)
== END | disposition home or self-care (01) ==
LOC: MTLAB 13:41
PROVIDERS: PCP Internal Medicine; Referring Provider Internal Medicine Rheumatology; Visit Provider Internal Medicine Rheumatology
DX: M06.4 Inflammatory polyarthropathy (principal); R76.8 Other specified abnormal immunological findings in serum; M19.041 Primary osteoarthritis, right hand; Z79.899 Other long term (current) drug therapy
CPT/HCPCS: 36415; 85025

== ENCOUNTER 2023-11-24 12:00 | Outpatient (RCR) | payer MEDICARE, SELFPAY ==
--- NOTE | 2023-09-11 12:40 | HP.PTEVAL ---
Patient's Visit Information Visit Information Visit Information: EMILE KITCHEN is a 78 year old F referred to Physical Therapy by DONALD Moore with a diagnosis of Gait disorder, back pain.. Date of Evaluation: 09/11/23 Physical Therapist: Trenton Gibbons, DPT, OCS, CSCS Visit Plan Frequency: 3x /Week Duration: 4-6 Weeks Plan: 3x/week for 4-6 weeks.. 1. MH and STM/gun to upper back rhomboid mm between scap, 5-10 minutes, Arm ROM,scap ROM. 2. gait training and balance without walker/possibly cane. 3. HIP and LE strength progression of HEP(currently sink ex) Subjective Subjective: Went on Hospital in May for covid and could not walk when got out, Had home health to get walking with walker. Lives in home on one story with ramp. Fell 2 weeks before covid and twisted back. That upper back pain starts hurting when she walks without walker. Has had previous R leg troubles with hip L and now feels weak in R leg also. is on computer alot at home and watches Tv. Takes pain pills and vaccuums. Basics at home are getting done I, does not cook. Eats sandwich or soup and can get that herself. Driving herself. Too weak for steps. 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 HEP : sink exercises. Pain upper back pain.: Pain Intensity (Out of 10): 2 Objective Objective: Walks with rollator walker into PT mod I and slow. Without walker can ambulate with B trendelenberg , wide JD and not a lot of weight shift, steady but hesitant. CGA. [facility] chair and bed I. Steps not tested today. Unable to tolerate FGA without wh walker. LE strength 4- without myotomal problems in knees and ankles, hips are 3 flexion, ext, abd. Core is 3 reflexes 2/3 patella adn achilles B. Sensation WNL to gross light touch B. coordination min deficits to recirpocal toe tap. LE AROM WFL, tightness in HS obvious. UE AROM limited R side due to previous shoulder problems in elevation to 80 b ut can hold without pain for 3+/5 resistance. Tender to touch in upper back rhomboids B and this is limiting factor in walking further than about 200 feet without AD, it gets painful. Balance/Special Test Scores Lower Extremity Functional Score: 22 Goals Goal 1:: I appropriate balance and strength exercises to improve hip strength. Goal Time Frame: 4-6 Weeks Goal 2:: Walk safely 100 feet without AD Goal Time Frame: 4-6 Weeks Goal 3:: 22/30 score on FGA to limit fallr isk without AD. Goal Time Frame: 4-6 Weeks Goal 4:: Pt feel back pain 2/10 at worst and 75% improved. Goal Time Frame: 4-6 Weeks Goal 5:: 40 LEFS score Goal Time Frame: 4-6 Weeks Rehabilitation Potential Physical Therapy Diagnosis: weakness and balance deficits with pain in upper back limiting funciton Rehabilitation Potential: Fair Anticipated Interventions Patient/Client Instruction: Educate patient on: Condition For the Purpose of:: To decrease pain, To increase ROM, To improve nutrient delivery to tissue, To improve muscle performance and motor function and To increase tolerance to activity/condition/position Therapeutic Exercise to Include: Strength training and Balance training For the Purpose of:: To decrease pain, To improve nutrient delivery to tissue, To improve muscle performance and motor function and To increase tolerance to activity/condition/position Manual Therapy Techniques to Include: Passive ROM and Soft tissue mobilization For the Purpose of:: To decrease pain, To decrease swelling/inflammation, To increase ROM and To improve nutrient delivery to tissue Thermo therapy (hot pack): Yes For the Purpose of:: To improve nutrient delivery to tissue Text: Thank you for the opportunity to evaluate your patient. For Medicare and Medicare HMO plans, please review the plan of care and approve it. It will need to be FAXED BACK to us at [phone] for Medicare purposes. For Medicare only, by signing this I certify the plan of care. Please let me know if there are questions or concerns regarding this plan of care. Physician Signature: Date:
--- NOTE | 2023-10-27 12:24 | HP.PTREVAL ---
Re-Evaluation Intro: Jessica Coulter, JAM-C, It has been my pleasure to treat EMILE KITCHEN over the last 17 visits for Gait disorder, back pain.. Please see the progress note below for an update on the physical therapy plan of care! Subjective Subjective: Was sick last week adn had the flu. Ready to try on own and needs list. Willing to try on her own. 80% better. Objective Objective/Function: Walks with wide JD and mild trendelnberg R but I without cane, faituges quickly. Stairs reciprocal up and oown with one rail and cane, safer using L to descend. Progressing nicely adn still needs strength. Plan Plan Plan: f/u on [facility] for progression(more upper body machine, inchworms, progression and likely d/c, pt to call prior if needed. goal os to maintain improvements and goals shile exercising on her own x 1 mon, fair prognosi.s Balance/Gait/Functional tests Balance/Special Test Scores Functional Gait Assessment Score: 22 % Disability: 26.6700 Lower Extremity Functional Score: 32 Goals Goals Goal 1:: I appropriate balance and strength exercises to improve hip strength. Goal Time Frame: 4-6 Weeks Goal Progress: Goal Met Goal 2:: Walk safely 100 feet without AD Goal Time Frame: 4-6 Weeks Goal Progress: Goal Met Goal 3:: 22/30 score on FGA to limit fallr isk without AD. Goal Time Frame: 4-6 Weeks Goal Progress: Goal Met Goal 4:: Pt feel back pain 2/10 at worst and 75% improved. Goal Time Frame: 4-6 Weeks Goal Progress: 80% Goal 5:: 40 LEFS score Goal Time Frame: 4-6 Weeks Goal Progress: Progressing Goal 6:: steps reciprocally and safely with cane and rail Goal Time Frame: 2-4 Weeks Goal Progress: Goal Met Anticipated Interventions Anticipated Interventions Patient/Client Instruction: Educate patient on: Condition For the Purpose of:: To decrease pain, To increase ROM, To improve nutrient delivery to tissue, To improve muscle performance and motor function and To increase tolerance to activity/condition/position Therapeutic Exercise to Include: Strength training and Balance training For the Purpose of:: To decrease pain, To improve nutrient delivery to tissue, To improve muscle performance and motor function and To increase tolerance to activity/condition/position Manual Therapy Techniques to Include: Passive ROM and Soft tissue mobilization For the Purpose of:: To decrease pain, To decrease swelling/inflammation, To increase ROM and To improve nutrient delivery to tissue Thermo therapy (hot pack): Yes For the Purpose of:: To improve nutrient delivery to tissue Re-Evaluation Ending Re-evaluation ending: Please do not hesitate to contact me at [phone] by phone or if you have questions or concerns regarding this new plan of care! Sincerely, Trenton Gibbons, DPT, OCS, CSCS
--- NOTE | 2023-11-24 12:30 | HP.PTDCSUM ---
Discharge Summary D/C summary: It has been my pleasure to treat EMILE KITCHEN referred by DONALD Moore, with the diagnosis of Gait disorder, back pain. for a total of 18 visit(s). Discharge Date: 11/24/23 Please see the following information for a summary of their discharge status. Subjective Subjective: In here 3x/week to workout and going well. Doing stuff at home she has not done in two years, Very busy cleaning house at home. Back pain is much better. Does not need cane at home, Uses it out and about. No falls. Back pain to 5/10 but not nearly as intense as it used to be when she is busy. Can bend over and get pressure off. No f/u scheduled. Pain upper back pain.: Pain Intensity (Out of 10): Unrated Overall Improvement % Improvement: 80 Objective Objective/Function: Gait is slightly er at hips and widde JD but I without cane. Steps reciprocal with cane and rail, weaker on L. Pt comfortable with current ex regimen adn is very busy at home. Goals Goal 1:: I appropriate balance and strength exercises to improve hip strength. Goal Progress: Goal Met Goal 2:: Walk safely 100 feet without AD Goal Progress: Goal Met Goal 3:: score on FGA to limit fallr isk without AD. Goal Progress: Goal Met Goal 4:: Pt feel back pain 2/10 at worst and 75% improved. Goal Progress: 80% Goal 5:: 40 LEFS score Goal Progress: Progressing Goal 6:: steps reciprocally and safely with cane and rail Goal Progress: Goal Met Plan Plan: d/c to HEP D/C Information d/c sentence: If there are questions or concerns regarding this patient's physical therapy, please feel free to call me at [phone]. Thank you for the referral of this patient. Sincerely, Trenton Gibbons, DPT, OCS, CSCS Balance/Gait/Functional tests Balance/Special Test Scores Functional Gait Assessment Score: 22 % Disability: 26.6700 Lower Extremity Functional Score: 35 Improvement % Improvement: 80
== END 2023-11-24 12:49 | disposition home or self-care (01) ==
LOC: PT 12:00
PROVIDERS: PCP Internal Medicine; Visit Provider Internal Medicine
DX: M25.551 Pain in right hip (principal); M25.552 Pain in left hip; R26.9 Unspecified abnormalities of gait and mobility
CPT/HCPCS: 97110; 97112; 97116; 97140; 97162; 97530

== ENCOUNTER → 2023-12-31 | Outpatient (CLI) | payer MEDICARE, SELFPAY ==
[2023-12-31 12:45] LABS: Absolute Neutrophil Count 4.1 X10^3/uL (2.0-7.7); Basophil# 0.03 X10^3/uL; Basophil% 0.4 % (0-1); Eosinophil# 0.13 X10^3/uL; Eosinophils% 1.7 % (0-5); Hemoglobin 14.1 g/dL (12.0-15.0); Lymphocyte % 32.2 % (19-41); Mean Corp Hgb Conc 33.6 g/dL (32-36); Mean Corpuscular Hgb 30.7 pg (27.0-32.0); Mean Corpuscular Volume 91.5 fL (81-99); Monocyte# 1.04 X10^3/uL; Monocyte% 13.4 % (0-10); NRBC Flagged by Analyzer 0 % (0-5); Neutrophil # 4.05 X10^3/uL (2.7-7.7); Neutrophil % 52.2 % (47-70); Platelet Count 302 K/mm3 (150-450); RBC Distribution Width CV 12.8 % (11.6-14.6); RBC Distribution Width SD 42.9 fl (35.1-43.9); Red Blood Count 4.59 M/mm3 (4.2-5.4); White Blood Count 7.8 K/mm3 (4.4-11.0)
[2023-12-31 13:43] LABS: ALB/GLOB Ratio 1.1 RATIO (0.9-2.4); AST(SGOT) 41 U/L (15-37); Alanine Aminotransfer ALT/SGPT 47 U/L (13-56); Albumin, Serum 3.8 g/dL (3.2-5.0); Alkaline Phosphatase 93 U/L (45-117); Anion Gap 10 (5-15); BUN 42 mg/dL (7-18); BUN/Creat Ratio 35.6 RATIO (10-20); Calcium,Total 10.7 mg/dL (8.5-10.1); Chloride 93 mmol/L (98-107); Creatinine, Serum 1.18 mg/dL (0.55-1.02); EST Glomerular Filtration Rate 47 mL/min (>60); Est Glom Filt Rate - Afr Amer 57 mL/min (>60); Globulin 3.6 g/dL (2.2-4.2); Glucose 117 mg/dL (74-106); Potassium 2.6 mmol/L (3.5-5.1); Protein, Total 7.4 g/dL (6.4-8.2); Sodium Level 137 mmol/L (136-145)
== END | disposition home or self-care (01) ==
PROVIDERS: PCP Internal Medicine; Referring Provider Internal Medicine Rheumatology; Visit Provider Internal Medicine Rheumatology
DX: M06.4 Inflammatory polyarthropathy (principal); R76.8 Other specified abnormal immunological findings in serum; M19.041 Primary osteoarthritis, right hand; Z79.899 Other long term (current) drug therapy
CPT/HCPCS: 36415; 80053; 85025

== ENCOUNTER 2024-05-19 14:52 | Inpatient (IN) | payer MEDICARE, SELFPAY ==
[2024-05-19] VITALS (10 sets, daily range): BP systolic 95–135; BP diastolic 59–80; PULSE 65–106; RESP 18–25; TEMP 36.4–37; O2SAT 88–97; BMI 24.0; BMI 22.5
--- NOTE | 2024-05-19 15:09 | EX.ED.DYSGE1 ---
HPI History of Present Illness Chief Complaint: General Illness [facility] Medical History Abnormal pulmonary function test Anemia Anticoagulant long-term use Bronchitis Carotid bruit CHF (congestive heart failure) Edema Essential hypertension GERD (gastroesophageal reflux disease) GI bleed Hyperlipidemia FCI current use of amiodarone Nonrheumatic aortic (valve) insufficiency Nonrheumatic tricuspid valve regurgitation Osteoarthritis Paroxysmal atrial fibrillation Persistent atrial fibrillation Pneumonia PUD (peptic ulcer disease) Pulmonary hypertension Small bowel obstruction SOB (shortness of breath) on exertion Spinal cord stimulator status 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 classification TIA (transient ischemic attack) Home Medications ?Medication ?Instructions ?Recorded ?Last Taken ?Type calcium 200 mg (as 1 ea PO DAILY SUPPLEMENT 08/12/14 09/25/20 History citrate)-vitamin D3 6.25 mcg (250 unit) tablet zolpidem 10 mg tablet 10 mg PO QHS PRN sleep 03/13/18 05/29/23 History gabapentin 300 mg capsule 300 mg PO BID 09/15/20 05/30/23 History acetaminophen 500 mg tablet 1,000 mg PO DAILY PRN PRN Pain 09/25/20 09/22/20 History 1-10 Or Fever coenzyme Q10 100 mg capsule 100 mg PO DAILY SUPPLEMENT 09/25/20 09/25/20 History levothyroxine 25 mcg tablet 25 mcg PO DAILY THYROID 09/25/20 05/30/23 History magnesium 30 mg tablet 30 mg PO DAILY SUPPLEMENT 09/25/20 09/24/20 History multivitamin with minerals 1 tab PO DAILY SUPPLEMETN 09/25/20 09/25/20 History warfarin 1 mg tablet 0.5 mg PO MOWEFR BLOOD THINNER 10/19/21 05/29/23 History warfarin 1 mg tablet 1 mg PO SUTUTHSA 10/19/21 05/29/23 History atenolol 25 mg tablet 25 mg PO BID HEART #60 tabs 10/22/21 05/30/23 09:00 Rx 25 mg pantoprazole 40 mg tablet,delayed 40 mg PO DAILY 04/22/22 05/30/23 History release (Protonix) albuterol sulfate 90 mcg/actuation 2 puff inhalation Q4H PRN 05/07/22 05/30/23 Rx aerosol inhaler shortness of breath or wheezing #8.5 grams fluticasone propionate 50 2 spray intranasal QDAY #16 grams 05/07/22 Unknown Rx mcg/actuation nasal spray,suspension (Flonase Allergy Relief) diltiazem HCl 120 mg 120 mg PO DAILY #60 caps 02/10/23 05/30/23 Rx capsule,extended release 24 hr Nebulizer machine #1 ea 05/08/23 Unknown Rx budesonide 1 mg/2 mL suspension 1 mg (2 mL) inhalation BID #60 mL 05/08/23 05/30/23 Rx for nebulization ipratropium 0.5 mg-albuterol 3 mg 3 ml inhalation Q4H PRN PRN SOB 05/08/23 05/30/23 Rx (2.5 mg base)/3 mL nebulization &/OR WHEEZING #180 mL soln leflunomide 10 mg tablet 5 mg PO DAILY 05/08/23 05/30/23 History buprenorphine 10 mcg/hour weekly 1 patch topical Q7D pain 05/30/23 Unknown History transdermal patch hydrocodone-acetaminophen 5-325mg 1 tab PO Q8H 05/30/23 Unknown History 5mg-325mg potassium chloride 20 mEq 20 meq PO DAILY #30 tabs 06/04/23 Unknown Rx tablet,extended release(part/cryst) fluticasone fur. 100 mcg-umeclid 1 inh inhalation Q24H lungs #60 ea 09/12/23 Unknown Rx 62.5 mcg-vilant 25 mcg inhalat.powder (Trelegy Ellipta) diltiazem HCl 180 mg 180 mg PO QDAY 11/18/23 Unknown History capsule,extended release 24 hr empagliflozin 10 mg tablet 10 mg PO QDAY 11/18/23 Unknown History (Jardiance) metolazone 2.5 mg tablet 2.5 mg PO Q OTHER DAY PRN 11/18/23 Unknown History prednisone 2.5 mg tablet 2.5 mg PO QDAY 11/18/23 Unknown History furosemide 40 mg tablet 40 mg PO BID Swelling #60 tabs 12/26/23 Unknown Rx Allergy/AdvReac Type Severity Reaction Status Date / Time Didkeum-XRO-RoU Reductase AdvReac Severe Myalgias Verified 05/19/24 14:55 Inhibitor (Umohjek-Nat-Eyb Reductase Inhibitor) adhesive AdvReac Rash if on Verified 05/19/24 14:55 for extended period of time Family History Father CVA (cerebral vascular accident) Mother CVA (cerebral vascular accident) Sister CAD (coronary artery disease) Atrial fibrillation Sister COPD (chronic obstructive pulmonary disease) Surgical History H/O left wrist surgery History of back surgery History of left hip replacement History of right hip replacement History of rotator cuff surgery S/P foot surgery, right S/P insertion of spinal cord stimulator Social History pets and animals: Yes pets and animals: dog(s) Smoking Status: Former smoker Tobacco: How many years used: 36 how long ago did patient quit smoking: Patient quit in 2000 alcohol intake: current alcohol intake frequency: a few times a week Alcohol type: beer details: rare substance use type: does not use EXAM Physical Exam Const Vital Signs: 05/19/24 14:56 05/19/24 15:00 05/19/24 15:16 Temperature 97.8 F 97.8 F Temperature Source Oral Oral Pulse Rate 85 85 78 Respiratory Rate 18 18 20 H Respiratory Effort Respiratory Pattern Blood Pressure 117/62 117/62 123/70 H Blood Pressure Mean 80 80 87 Pulse Ox 88 88 95 Oxygen Delivery Method Room Air Room Air Nasal Cannula Oxygen Flow Rate (L/min) 4 05/19/24 15:16 05/19/24 16:00 05/19/24 16:03 Temperature 98.6 F Temperature Source Oral Pulse Rate 91 Respiratory Rate 19 H Respiratory Effort Short of Breath Respiratory Pattern Tachypnea Blood Pressure 106/80 Blood Pressure Mean 88 Pulse Ox 95 Oxygen Delivery Method Nasal Cannula Nasal Cannula Oxygen Flow Rate (L/min) 4 4 MDM MDM MDM Narrative Medical decision making narrative: HISTORY OF PRESENT ILLNESS: 78-year-old female history of A-fib on warfarin, COPD, pulmonary hypertension, GERD, TIA with, fever and fatigue. Notes the symptoms started 2 days ago. No she gets similar symptoms when lungs follow-up with fluid. Notes she wears 4 L of oxygen at bedtime. No leg swelling. No syncope. No bleeding diathesis including hemoptysis, melena, analgesia. The patient denies recent surgery in the last 4 weeks or immobilization in the last 3 days, denies previous diagnosis of DVT or PE, hemoptysis, unilateral leg swelling or malignancy with treatment the last 6 months or palliative. No estrogen use noted. Notes a cough productive of yellow and green sputum. Denies chest pain REVIEW OF SYSTEMS: Pertinent positives: Shortness of breath, fever and fatigue Pertinent negatives: Chest pain, syncope, bleeding diathesis PHYSICAL EXAM: Nursing triage notes reviewed, Vital signs reviewed Constitutional: please see mdm HENT: MMM Eyes: Pupils equal round and reactive to light, Extraocular muscles intact Neck: No stridor, no JVD, full neck ROM Lungs: Clear to auscultation, No wheezing or rales. No increased work of breathing, no conversational dyspnea, no accessory muscle use, no nasal flaring. No respiratory distress noted Heart: Regular rate and rhythm, No murmurs, No rubs and No gallops, 2+ distal pulses (radial, femoral, posterior tibial) in all extremities Abdomen: Soft, there is no tenderness, rigidity, rebound or guarding, no obvious peritoneal signs, no palpable pulsatile abdominal masses, no auscultated abdominal bruit : No CVAT Extremities: No edema, full range of motion in bilateral upper extremities, compartments are soft, Neuro: No focal neurological deficits, cranial nerves II through XII intact, 5/5 strength in all extremities. Intact sensation to light touch in all extremities, 2+ reflexes bilateral patella tendons. Normal gait. No ataxia. Skin: No rash or lesions noted MEDICAL DECISION MAKING: Chief Complaint: Shortness of breath, fatigue and fever External records reviewed: Reviewed prior imaging studies: Reviewed CT of the chest from 2022 which showed right lower lobe pneumonia, no evidence of dissection, no PE Factors affecting care: n as per HPI Social determinants of health: none History obtained from others: none Consults: none [facility] Narrative: Patient was initially hemodynamically stable, afebrile and nontoxic-appearing saturating 88% on room air. Patient was coughing and appeared in minimal respiratory distress. She initially saturating 88% but improved to 95% on her home 4 L of oxygen that she typically wears at bedtime. Exam without stigmata of VTE, anemia or heart failure. Lungs with coarse breath sounds no obvious focal consolidation. I considered the following differential diagnosis: COVID, flu, RSV, pneumonia, CHF exacerbation, arrhythmia, anemia, coagulopathy, electrolyte disturbance, kidney failure, UTI I obtained a broad lab and imaging workup to further elucidate etiology of patient's complaints ALL IMAGES (IF OBTAINED) HAVE BEEN PERSONALLY REVIEWED AND INTERPRETED BY MYSELF. EKG with rate controlled A-fib, normal axis, normal intervals, no STEMI Chest x-ray was read reviewed person myself with evidence of right sided pneumonia. Will give empiric antibiotics for commune acquired pneumonia. Awaiting radiologist read. CBC with no leukocytosis to suggest systemic inflammation however on the patient's last admission for pneumonia she did not have leukocytosis as well INR therapeutic BMP with severe hypokalemia (will replace with p.o. potassium), mild hyponatremia, no signs of metabolic acidosis or endorgan hypoperfusion with normal bicarb and normal anion gap High-sensitivity troponin is negative, no evidence of myocardial ischemia BNP pending The synthesis of the patient's history, physical exam, labs images suggest likely community-acquired pneumonia hypoxia as a cause of her cough fever and fatigue. No sign of ACS, severe anemia. There is also evidence of hypokalemia was also contributing to her fatigue and feeling malaise. Given initial hypoxia, increased oxygen requirement, multiple medical comorbidities increased risk for sudden clinical decompensation and the fact that she has obvious pneumonia she will need admission. Will discuss with hospitalist. The patient and/or family, caregivers express understanding. The patient and/or family, caregivers agrees with the plan. Shared decision making: I will have a discussion with the patient and or visitors regarding risk/benefits of further testing or admission. They will be made aware of of the risk/benefits inherent in this decision they will be given the opportunity to voice understanding. Total critical care time today provided was at least 0 [] minutes. This excludes separately billable procedures. Critical care time (if documented) is secondary to the patient having high probability of clinically significant/life threatening deterioration in the patient's condition which required my urgent intervention. Impression: 1. Dyspnea 2. History of atrial fibrillation 3. Hypoxia 4. Hypokalemia 5. Hyponatremia Dispo: Admit This note was generated with [employer] dictation software. It may contain incorrect words, spelling, and punctuation that were not noted in review of the chart prior to signing. Lab Data Labs: Laboratory Results - last 24 hr 05/19/24 15:35 WBC 8.5 RBC 4.12 L Hgb 12.5 Hct 38.3 MCV 93.0 MCH 30.3 MCHC 32.6 RDW Std Deviation 41.3 RDW Coeff of Nicki 12.1 Plt Count 160 MPV 10.4 Immature Gran % (Auto) 0.200 Neut % (Auto) 76.9 H Lymph % (Auto) 11.5 L Jennings % (Auto) 11.2 H Eos % (Auto) 0.0 Baso % (Auto) 0.2 Absolute Neuts (auto) 6.5 Absolute Lymphs (auto) 0.98 Nucleated RBC % 0 PT 30.2 H INR 2.9 Sodium 135 L Potassium 2.6 L* Chloride 92 L Carbon Dioxide 34.0 H Anion Gap 9 BUN 29 H Creatinine 1.17 H Estim Creat Clear Calc 33.40 Est GFR (MDRD) Af Amer 58 L Est GFR (MDRD) Non-Af 48 L BUN/Creatinine Ratio 24.8 H Glucose 142 H Calcium 9.4 Troponin I High Sens 16 Radiography Diagnostic Testing: Clinical Impression(s) from Imaging Studies Chest X-Ray 05/19/24 15:50 IMPRESSION: Right lower lobe airspace disease compatible with pneumonia. Electronically Signed: Reginald Chao MD at 17:00 EDT , Discharge Plan Triage Chief Complaint: General Illness ED Provider: Sam Pretty Dx/Rx/DC Orders Prescriptions: No Action gabapentin 300 mg capsule 300 mg PO BID pantoprazole [Protonix] 40 mg tablet,delayed release (DR/EC) 40 mg PO DAILY albuterol sulfate 90 mcg/actuation HFA aerosol inhaler 2 puff inhalation Q4H PRN (Reason: shortness of breath or wheezing) Qty: 8.5 6RF Rx Instructions: administer with spacer fluticasone propionate [Flonase Allergy Relief] 50 mcg/actuation spray,suspension 2 spray intranasal QDAY Qty: 16 3RF Rx Instructions: administer into each nostril leflunomide 10 mg tablet 5 mg PO DAILY Patient Comments: Take ONE-HALF TABLET BY MOUTH DAILY budesonide 1 mg/2 mL suspension for nebulization 1 mg inhalation BID Qty: 60 12RF ipratropium-albuterol 0.5 mg-3 mg(2.5 mg base)/3 mL solution for nebulization 3 ml inhalation Q4H PRN PRN (Reason: SOB &/OR WHEEZING) Qty: 180 12RF (DME) Nebulizer machine See Rx Instructions .ROUTE .MEDSUPPLY Qty: 1 0RF Rx Instructions: As directed metolazone 2.5 mg tablet 2.5 mg PO Q OTHER DAY PRN diltiazem HCl 180 mg capsule,extended release 24hr 180 mg PO QDAY prednisone 2.5 mg tablet 2.5 mg PO QDAY Jardiance 10 mg tablet 10 mg PO QDAY zolpidem 10 mg tablet 10 mg PO QHS PRN (Reason: sleep) Patient Comments: SLEEPING PILL calcium citrate-vitamin D3 1 EACH tablet 1 ea PO DAILY Patient Comments: supplement acetaminophen 500 MG tablet 1,000 mg PO DAILY PRN PRN (Reason: Pain 1-10 Or Fever) multivitamin with minerals 1 EACH tablet 1 tab PO DAILY magnesium 30 MG tablet 30 mg PO DAILY coenzyme Q10 100 MG capsule 100 mg PO DAILY levothyroxine 25 MCG tablet 25 mcg PO DAILY buprenorphine 10 mcg/hour patch weekly 1 patch topical Q7D Patient Comments: PT STATES NOT USING BECAUSE IT DOES NOT HELP hydrocodone-acetaminophen 5-325 mg tablet 1 tab PO Q8H Patient Comments: PT STATES NOT TAKING BECAUSE DOES NOT HELP PAIN potassium chloride 20 mEq tablet,ER particles/crystals 20 meq PO DAILY Qty: 30 0RF warfarin 1 mg tablet 0.5 mg PO Protocol: Dose Management Condition: Friday Dose/Route: 1 mg Instruction: 1 x 1 mg tablet Condition: Friday Dose/Route: 0 mg Instruction: 0 tablets Condition: Friday Dose/Route: 0.5 mg Instruction: 0.5 x 1 mg tablets Condition: Friday Dose/Route: 1 mg Instruction: 1 x 1 mg tablet Condition: Dose/Route: 0.5 mg Instruction: 0.5 x 1 mg tablets Condition: Friday Dose/Route: 1 mg Instruction: 1 x 1 mg tablet Condition: Friday Dose/Route: 0.5 mg Instruction: 0.5 x 1 mg tablets Protocol Text: Adjustment Start Date: Friday05/06/22 INR Value: 3.6 INR Date: 05/06/22 Recheck Date: 05/13/22 Rx Instructions: Managed by Dr. Beck warfarin 1 mg tablet 1 mg PO [facility] Protocol: Dose Management Condition: Friday Dose/Route: 1 mg Instruction: 1 x 1 mg tablet Condition: Friday Dose/Route: 0 mg Instruction: 0 tablets Condition: Friday Dose/Route: 0.5 mg Instruction: 0.5 x 1 mg tablets Condition: Friday Dose/Route: 1 mg Instruction: 1 x 1 mg tablet Condition: Dose/Route: 0.5 mg Instruction: 0.5 x 1 mg tablets Condition: Friday Dose/Route: 1 mg Instruction: 1 x 1 mg tablet Condition: Friday Dose/Route: 0.5 mg Instruction: 0.5 x 1 mg tablets Protocol Text: Adjustment Start Date: Friday05/06/22 INR Value: 3.6 INR Date: 05/06/22 Recheck Date: 05/13/22 Rx Instructions: Managed by Dr. Beck atenolol 25 mg tablet 25 mg PO BID Qty: 60 11RF diltiazem HCl 120 mg capsule,extended release 24hr 120 mg PO DAILY Qty: 60 11RF Trelegy Ellipta 100-62.5-25 mcg blister with device 1 inh INHALATION Q24H Qty: 60 11RF furosemide 40 mg tablet 40 mg PO BID Qty: 60 11RF Primary Care Provider: Tasneem Beck Referrals: Tasneem Beck MD [Primary Care Provider] - Print Language: Icelandic
--- NOTE | 2024-05-19 15:18 | EKG12_ITS ---
Test Reason : Blood Pressure : / mmHG Vent. Rate : 079 BPM Atrial Rate : 000 BPM P-R Int : 000 ms QRS Dur : 090 ms QT Int : 418 ms P-R-T Axes : 000 -08 -32 degrees QTc Int : 479 ms Atrial fibrillation with premature ventricular or aberrantly conducted complexes ST & T wave abnormality, consider anterior ischemia Abnormal ECG Confirmed by TAWNYA HAGEN, ESCOBAR ([id number]), movie editor OTILIA CARVALHO ([id number]) on 05/20/2024 9:26:05 AM Referred By: Confirmed By:ESCBOAR BOWLING MD
[2024-05-19 15:41] LABS: Absolute Lymphocyte Count 0.98 X10^3/uL (0.83-4.51); Absolute Neutrophil Count 6.5 X10^3/uL (2.0-7.7); Basophil# 0.02 X10^3/uL; Basophil% 0.2 % (0-1); Hematocrit 38.3 % (37-47); Hemoglobin 12.5 g/dL (12.0-15.0); Lymphocyte # 0.98 X10^3/ul (0.83-4.51); Lymphocyte % 11.5 % (19-41); Mean Corp Hgb Conc 32.6 g/dL (32-36); Mean Corpuscular Hgb 30.3 pg (27.0-32.0); Mean Platelet Vol. 10.4 fl (6.2-12.0); Monocyte# 0.95 X10^3/uL; Monocyte% 11.2 % (0-10); NRBC Flagged by Analyzer 0 % (0-5); Neutrophil # 6.52 X10^3/uL (2.7-7.7); Neutrophil % 76.9 % (47-70); Platelet Count 160 K/mm3 (150-450); RBC Distribution Width CV 12.1 % (11.6-14.6); RBC Distribution Width SD 41.3 fl (35.1-43.9); Red Blood Count 4.12 M/mm3 (4.2-5.4); White Blood Count 8.5 K/mm3 (4.4-11.0)
--- NOTE | 2024-05-19 15:50 | RAD_ITS ---
EXAM: XR CHEST, 2 VIEWS CLINICAL INDICATION: dyspnea, cough R/o PNA, CHF TECHNIQUE: Frontal and lateral views of the chest. COMPARISON: 05/30/2023 FINDINGS: LUNGS AND PLEURAL SPACES: There is right lower lobe airspace disease which may represent pneumonia. No pneumothorax. No effusion. HEART: Unremarkable. Cardiac silhouette not enlarged. MEDIASTINUM: Central airways and mediastinal contour are unremarkable. BONES/JOINTS: There are bilateral shoulder prostheses. No acute fracture. SOFT TISSUES: Unremarkable. TUBES, LINES AND DEVICES: There are stimulator leads overlying the midthoracic spine. RAD/Chest PA and Lateral IMPRESSION: Right lower lobe airspace disease compatible with pneumonia. Electronically Signed: Reginald Chao MD at 17:00 EDT ,
[2024-05-19 15:57] LABS: International Normalized Ratio 2.9; Prothrombin Time (Protime)PT. 30.2 SECONDS (11.7-14.9)
[2024-05-19 16:05] LABS: Anion Gap 9 (5-15); BUN 29 mg/dL (7-18); BUN/Creat Ratio 24.8 RATIO (10-20); Calcium,Total 9.4 mg/dL (8.5-10.1); Chloride 92 mmol/L (98-107); Creatinine, Serum 1.17 mg/dL (0.55-1.02); EST Glomerular Filtration Rate 48 mL/min (>60); Est Glom Filt Rate - Afr Amer 58 mL/min (>60); Glucose 142 mg/dL (74-106); Potassium 2.6 mmol/L (3.5-5.1); Sodium Level 135 mmol/L (136-145); Troponin-I HS 16 pg/mL (3.0-54.0)
[2024-05-19] MEDS: Ceftriaxone 1 GM/50 ML BAG IV (16:28)
[2024-05-19] MEDS: Ondansetron 4 MG/2 ML Vial IV (17:01)
[2024-05-19] MEDS: Potassium Chloride Oral Soln 20 MEQ/15 ML UDC 60 MEQ PO (17:07)
--- NOTE | 2024-05-19 17:26 | PCM.HP.STD ---
HPI - General General Date of Admission: 05/19/24 Date of Service: 05/19/24 Chief Complaint: Inc SOB, fever, cough HPI Narrative EMILE KITCHEN, is a 78-year-old female history of GERD, COPD on 4 L home O2 nightly, A-fib, CKD, hypothyroidism presented to [facility] ED 05/19/2024 with increasing shortness of breath cough. In the ED patient initially 88% on room air and improved to mid 90s on 4 L O2 he was found to have a right sided pneumonia on chest x-ray was also hypokalemic with a potassium of 2.6. Due to her hypoxia and hypokalemia in the setting of a new pneumonia hospitalist contacted for admission. Patient evaluated at bedside. She reports that since Friday she has been having increasing shortness of breath, cough and has been fatigued and has been spiking fevers. This a.m. her temperature was 101.7. She has been very weak and has had poor p.o. intake and today's been feeling nauseous. She was trying not to come in because she is in the process of moving but today she was so weak and felt so short of breath that she thought she needed to come and be evaluated. Reports she has been wearing her O2 around at home during the day and at night due to her shortness of breath. No bowel or bladder changes. Reports she has some chronic swelling in lower extremities that is overall unchanged. 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 Nonrheumatic aortic (valve) insufficiency Nonrheumatic tricuspid valve regurgitation Osteoarthritis Paroxysmal atrial fibrillation Persistent atrial fibrillation Pneumonia PUD (peptic ulcer disease) Pulmonary hypertension Small bowel obstruction SOB (shortness of breath) on exertion Spinal cord stimulator status 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 classification TIA (transient ischemic attack) Home Medications ?Medication ?Instructions ?Recorded ?Last Taken ?Type calcium 200 mg (as 1 ea PO DAILY SUPPLEMENT 08/12/14 09/25/20 History citrate)-vitamin D3 6.25 mcg (250 unit) tablet zolpidem 10 mg tablet 10 mg PO QHS PRN sleep 03/13/18 05/29/23 History gabapentin 300 mg capsule 300 mg PO BID 09/15/20 05/30/23 History acetaminophen 500 mg tablet 1,000 mg PO DAILY PRN PRN Pain 09/25/20 09/22/20 History 1-10 Or Fever coenzyme Q10 100 mg capsule 100 mg PO DAILY SUPPLEMENT 09/25/20 09/25/20 History levothyroxine 25 mcg tablet 25 mcg PO DAILY THYROID 09/25/20 05/30/23 History magnesium 30 mg tablet 30 mg PO DAILY SUPPLEMENT 09/25/20 09/24/20 History multivitamin with minerals 1 tab PO DAILY SUPPLEMETN 09/25/20 09/25/20 History warfarin 1 mg tablet 0.5 mg PO MOWEFR BLOOD THINNER 10/19/21 05/29/23 History warfarin 1 mg tablet 1 mg PO SUTUTHSA 10/19/21 05/29/23 History atenolol 25 mg tablet 25 mg PO BID HEART #60 tabs 10/22/21 05/30/23 09:00 Rx 25 mg pantoprazole 40 mg tablet,delayed 40 mg PO DAILY 04/22/22 05/30/23 History release (Protonix) albuterol sulfate 90 mcg/actuation 2 puff inhalation Q4H PRN 05/07/22 05/30/23 Rx aerosol inhaler shortness of breath or wheezing #8.5 grams fluticasone propionate 50 2 spray intranasal QDAY #16 grams 05/07/22 Unknown Rx mcg/actuation nasal spray,suspension (Flonase Allergy Relief) diltiazem HCl 120 mg 120 mg PO DAILY #60 caps 02/10/23 05/30/23 Rx capsule,extended release 24 hr Nebulizer machine #1 ea 05/08/23 Unknown Rx budesonide 1 mg/2 mL suspension 1 mg (2 mL) inhalation BID #60 mL 05/08/23 05/30/23 Rx for nebulization ipratropium 0.5 mg-albuterol 3 mg 3 ml inhalation Q4H PRN PRN SOB 05/08/23 05/30/23 Rx (2.5 mg base)/3 mL nebulization &/OR WHEEZING #180 mL soln leflunomide 10 mg tablet 5 mg PO DAILY 05/08/23 05/30/23 History buprenorphine 10 mcg/hour weekly 1 patch topical Q7D pain 05/30/23 Unknown History transdermal patch hydrocodone-acetaminophen 5-325mg 1 tab PO Q8H 05/30/23 Unknown History 5mg-325mg fluticasone fur. 100 mcg-umeclid 1 inh inhalation Q24H lungs #60 ea 09/12/23 Unknown Rx 62.5 mcg-vilant 25 mcg inhalat.powder (Trelegy Ellipta) diltiazem HCl 180 mg 180 mg PO QDAY 11/18/23 Unknown History capsule,extended release 24 hr empagliflozin 10 mg tablet 10 mg PO QDAY 11/18/23 Unknown History (Jardiance) metolazone 2.5 mg tablet 2.5 mg PO Q OTHER DAY PRN 11/18/23 Unknown History prednisone 2.5 mg tablet 2.5 mg PO QDAY 11/18/23 Unknown History furosemide 40 mg tablet 40 mg PO BID Swelling #60 tabs 12/26/23 Unknown Rx potassium chloride 20 mEq 40 meq PO BID 05/19/24 Unknown History tablet,extended release(part/cryst) Allergy/AdvReac Type Severity Reaction Status Date / Time [id number]-Dgd Reductase AdvReac Severe Myalgias Verified 05/19/24 14:55 Inhibitor adhesive AdvReac Rash if on Verified 05/19/24 14:55 for extended period of time Family History Father CVA (cerebral vascular accident) Mother CVA (cerebral vascular accident) Sister CAD (coronary artery disease) Atrial fibrillation Sister COPD (chronic obstructive pulmonary disease) Surgical History H/O left wrist surgery History of back surgery History of left hip replacement History of right hip replacement History of rotator cuff surgery S/P foot surgery, right S/P insertion of spinal cord stimulator Social History pets and animals: Yes pets and animals: dog(s) Smoking Status: Former smoker Tobacco: How many years used: 36 how long ago did patient quit smoking: Patient quit in 2000 alcohol intake: current alcohol intake frequency: a few times a week Alcohol type: beer details: rare substance use type: does not use ROS ROS Narrative General: Fevers HENT: Denies headache EYES: Denies changes in vision Resp: Increased cough and increased shortness of breath Cardiac: Denies chest pain GI: Denies abdominal pain, denies changes in bowel, denies nausea/vomiting, poor p.o. intake : Denies changes in urination Extremity: Some chronic lower extremity swelling MSK: Generalized weakness Neuro: Denies any numbness/tingling Heme: Easy bruising Skin: Denies rashes Psychiatric: No complaints voiced Vital Signs Vital Signs Vital Signs: 05/19/24 14:56 05/19/24 15:00 05/19/24 15:16 Temperature 97.8 F 97.8 F Temperature Source Oral Oral Pulse Rate 85 85 78 Respiratory Rate 18 18 20 H Respiratory Effort Respiratory Pattern Blood Pressure 117/62 117/62 123/70 H Blood Pressure Mean 80 80 87 Pulse Ox 88 88 95 Oxygen Delivery Method Room Air Room Air Nasal Cannula Oxygen Flow Rate (L/min) 4 05/19/24 15:16 05/19/24 16:00 05/19/24 16:03 Temperature 98.6 F Temperature Source Oral Pulse Rate 91 Respiratory Rate 19 H Respiratory Effort Short of Breath Respiratory Pattern Tachypnea Blood Pressure 106/80 Blood Pressure Mean 88 Pulse Ox 95 Oxygen Delivery Method Nasal Cannula Nasal Cannula Oxygen Flow Rate (L/min) 4 4 05/19/24 17:00 Temperature 98.6 F Temperature Source Oral Pulse Rate 78 Respiratory Rate 20 H Respiratory Effort Respiratory Pattern Blood Pressure 135/59 H Blood Pressure Mean 84 Pulse Ox 92 Oxygen Delivery Method Nasal Cannula Oxygen Flow Rate (L/min) 5 Weight Weight: 57.6 kg Body Mass Index (BMI) 24.0 Physical Exam Narrative General: Alert, oriented, no apparent distress HEENT: Atraumatic, normocephalic Eyes: Anicteric, normal conjunctiva, extraocular movements grossly intact Neck: Supple Respiratory: scattered wheezes, coarse breath sounds, somewhat diminished at right base slight increased respiratory effort Cardiovascular: Irregularly irregular GI: Soft, nontender, nondistended Extremities: No edema Musculoskeletal: Moving all extremities Neuro: No overt focal neurological deficits Skin: No rashes appreciated Psych: Cooperative Results Lab / Micro Data 05/19/24 15:35 05/19/24 15:35 Labs: Laboratory Results - last 24 hr 05/19/24 15:35: WBC 8.5, RBC 4.12 L, Hgb 12.5, Hct 38.3, MCV 93.0, MCH 30.3, MCHC 32.6, RDW Std Deviation 41.3, RDW Coeff of Nicki 12.1, Plt Count 160, MPV 10.4, Immature Gran % (Auto) 0.200, Neut % (Auto) 76.9 H, Lymph % (Auto) 11.5 L, [place] % (Auto) 11.2 H, Eos % (Auto) 0.0, Baso % (Auto) 0.2, Absolute Neuts (auto) 6.5, Absolute Lymphs (auto) 0.98, Nucleated RBC % 0, PT 30.2 H, INR 2.9, Sodium 135 L, Potassium 2.6 L*, Chloride 92 L, Carbon Dioxide 34.0 H, Anion Gap 9, BUN 29 H, Creatinine 1.17 H, Estim Creat Clear Calc 33.40, Est GFR (MDRD) Af Amer 58 L, Est GFR (MDRD) Non-Af 48 L, BUN/Creatinine Ratio 24.8 H, Glucose 142 H, Calcium 9.4, Troponin I High Sens 16 Micro: Microbiology 05/19/24 15:50 Mucosa - Nose SARS-CoV-2, Influenza & RSV (PCR) - Final Imaging Radiology Impression Chest X-Ray 05/19/24 15:50 IMPRESSION: Right lower lobe airspace disease compatible with pneumonia. Electronically Signed: Reginald Chao MD at 17:00 EDT Reading Location ID and State: [address] [place] [address] Tel , Service support , Assessment & Plan Assessment/Plan (1) Pneumonia: PLAN: Plan #Acute on chronic hypoxia 2/2 Community-acquired pneumonia -Wean O2 as tolerated -Imaging: Chest x-ray with right-sided infiltrate -DuoNebs and as needed albuterol -Sputum culture, COVID negative, respiratory panel ordered -Urine antigens -Mucinex, I/S -Rocephin and azithromycin #Hypokalemia - 2.6 in the ED - replace - repeat -Patient reports taking 80 mg daily but she does also take 80 mg of Lasix daily #?History of chronic heart failure unclear subtype -Patient reports history of heart failure, do not see abnormal echo in our system but she does take Lasix twice daily -Appears euvolemic, will continue at this time # history of COPD on 4 L home O2 nightly - DuoNebs, inhaled steroids given that she is on Trelegy Ellipta at home # A-fib on Coumadin - continue home medications once med rec updated - continue Coumadin, presently therapeutic on current dose-awaiting updated home dosing #RA -Patient on leflunomide 5 mg and gets golimumab infusions every 8 weeks -Follows in outpatient basis #GERD -Continue PPI #Hypothyroidism -Continue Synthroid # CKD stage III a -Appears to be at baseline -Avoid nephrotoxic agents -Daily BMPs #DVT ppx: therapeutic on Coumadin Eva Lindquist MD Charges/Coding Visit Charges Inpatient E&M: 89709 Init Hosp L2
[2024-05-19] MEDS: Azithromycin 500 MG in Dextrose 5%-Water (250mL Bag) 250 ML 250 MG IV (17:33)
[2024-05-19] MEDS: Potassium Chloride 10mEq/100mL 10 MEQ/100 ML IV.SOLN. 100 MEQ IV BOLUS ×2 (19:48→20:50)
[2024-05-19] MEDS: 0.9% Saline Lock 10 ML Syringe IV (19:48)
[2024-05-19] MEDS: Gabapentin 300 MG Capsule PO (20:27)
[2024-05-19] MEDS: HYDROcodone Bitartrate/Apap 5/325 Tablet PO (20:27)
[2024-05-19] MEDS: guaiFENesin 1,200 MG Tablet 1200 MG PO (20:28)
[2024-05-19] MEDS: Potassium Chloride Oral Tablet 20 MEQ 40 MEQ PO (20:28)
[2024-05-19] MEDS: Furosemide 40 MG Tablet PO (20:29)
[2024-05-19] MEDS: Glucerna Shake 120 ML LIQUID PO (20:43)
[2024-05-19] MEDS: Atenolol 25 MG Tablet PO (21:58)
[2024-05-19] MEDS: MELATONIN 3 MG TABLET PO (22:55)
[2024-05-19] MEDS: Acetaminophen 325 MG Tablet 650 MG PO (22:55)
[2024-05-19] MEDS: MENTHOL 226.8 GM JAR 1 APPLIC TOPICAL (22:56)
[2024-05-19 22:57] LABS: Anion Gap 6 (5-15); BUN 32 mg/dL (7-18); BUN/Creat Ratio 27.6 RATIO (10-20); Calcium,Total 8.7 mg/dL (8.5-10.1); Chloride 96 mmol/L (98-107); Creatinine, Serum 1.16 mg/dL (0.55-1.02); EST Glomerular Filtration Rate 48 mL/min (>60); Est Glom Filt Rate - Afr Amer 58 mL/min (>60); Estimated Creatinine Clearance 31.13 ml/min; Glucose 132 mg/dL (74-106); Potassium 3.9 mmol/L (3.5-5.1); Sodium Level 134 mmol/L (136-145)
[2024-05-20] VITALS (9 sets, daily range): BP systolic 109–125; BP diastolic 65–87; PULSE 62–94; RESP 16–20; TEMP 36.7–36.8; O2SAT 92–99; BMI 22.5
[2024-05-20 01:55] LABS: BNP,B-Type NATRIURETIC PEPTIDE 671.1 pg/mL (0-100)
[2024-05-20 04:34] LABS: Absolute Lymphocyte Count 1.45 X10^3/uL (0.83-4.51); Absolute Neutrophil Count 4.5 X10^3/uL (2.0-7.7); Basophil# 0.02 X10^3/uL; Basophil% 0.3 % (0-1); Eosinophil# 0.14 X10^3/uL; Eosinophils% 1.9 % (0-5); Hematocrit 33.4 % (37-47); Hemoglobin 10.7 g/dL (12.0-15.0); Lymphocyte # 1.45 X10^3/ul (0.83-4.51); Lymphocyte % 20.2 % (19-41); Mean Corpuscular Hgb 30.1 pg (27.0-32.0); Mean Corpuscular Volume 93.8 fL (81-99); Mean Platelet Vol. 10.9 fl (6.2-12.0); Monocyte% 15.3 % (0-10); NRBC Flagged by Analyzer 0 % (0-5); Neutrophil # 4.45 X10^3/uL (2.7-7.7); Platelet Count 153 K/mm3 (150-450); RBC Distribution Width CV 12.2 % (11.6-14.6); RBC Distribution Width SD 42.9 fl (35.1-43.9); Red Blood Count 3.56 M/mm3 (4.2-5.4); White Blood Count 7.2 K/mm3 (4.4-11.0)
[2024-05-20 04:55] LABS: Anion Gap 4 (5-15); BUN 34 mg/dL (7-18); BUN/Creat Ratio 32.7 RATIO (10-20); Chloride 97 mmol/L (98-107); Creatinine, Serum 1.04 mg/dL (0.55-1.02); EST Glomerular Filtration Rate 55 mL/min (>60); Est Glom Filt Rate - Afr Amer 66 mL/min (>60); Estimated Creatinine Clearance 34.73 ml/min; Glucose 98 mg/dL (74-106); Magnesium 1.9 mg/dL (1.6-2.6); Potassium 3.3 mmol/L (3.5-5.1); Sodium Level 134 mmol/L (136-145)
[2024-05-20] MEDS: Levothyroxine 25 MCG TABLET PO (06:12)
[2024-05-20] MEDS: MENTHOL 226.8 GM JAR 1 APPLIC TOPICAL (06:13)
[2024-05-20] MEDS: Ipratropium/Albuterol Sulfate 3 ML AMPUL.NEB INHALATION ×3 (06:58→19:35)
[2024-05-20] MEDS: Budesonide Respules 0.5 MG/2 ML AMPUL.NEB. INHALATION ×2 (06:58→19:35)
--- NOTE | 2024-05-20 08:50 | PN.HOSP_ITS ---
Reason for Visit Reason for Visit: Diagnoses Pneumonia, unspecified organism (05/19/24) Subjective Subjective Still short of breath. Objective Data Objective Data Vital Signs: Vital Signs Temp Pulse Resp BP Pulse Ox O2 Del Method O2 Flow Rate 36.7 C 64 16 125/80 H 98 Nasal Cannula 2 05/20/24 03:00 05/20/24 03:00 05/20/24 03:00 05/20/24 03:00 05/20/24 03:00 05/20/24 04:06 05/20/24 04:06 Oxygen Flow Rate (L/min) 2 Oxygen Delivery Method Nasal Cannula Weight: 54.1 kg Body Mass Index (BMI) 22.5 Intake & Output: Intake and Output for Last 24 Hours 05/18/24 05/19/24 05/20/24 23:59 23:59 23:59 Intake Total 1305 / 1305 Balance 1305 / 1305 Lab / Micro Data 05/20/24 03:50 05/20/24 03:50 Labs: Laboratory Results - last 24 hr 05/19/24 15:35: WBC 8.5, RBC 4.12 L, Hgb 12.5, Hct 38.3, MCV 93.0, MCH 30.3, MCHC 32.6, RDW Std Deviation 41.3, RDW Coeff of Nicki 12.1, Plt Count 160, MPV 10.4, Immature Gran % (Auto) 0.200, Neut % (Auto) 76.9 H, Lymph % (Auto) 11.5 L, [place] % (Auto) 11.2 H, Eos % (Auto) 0.0, Baso % (Auto) 0.2, Absolute Neuts (auto) 6.5, Absolute Lymphs (auto) 0.98, Nucleated RBC % 0, PT 30.2 H, INR 2.9, Sodium 135 L, Potassium 2.6 L*, Chloride 92 L, Carbon Dioxide 34.0 H, Anion Gap 9, BUN 29 H, Creatinine 1.17 H, Estim Creat Clear Calc 33.40, Est GFR (MDRD) Af Amer 58 L, Est GFR (MDRD) Non-Af 48 L, BUN/Creatinine Ratio 24.8 H, Glucose 142 H, Calcium 9.4, Troponin I High Sens 16, B-Natriuretic Peptide 671.1 H 05/19/24 22:29: Sodium 134 L, Potassium 3.9, Chloride 96 L, Carbon Dioxide 32.0, Anion Gap 6, BUN 32 H, Creatinine 1.16 H, Estim Creat Clear Calc 31.13, Est GFR (MDRD) Af Amer 58 L, Est GFR (MDRD) Non-Af 48 L, BUN/Creatinine Ratio 27.6 H, G lucose 132 H, Calcium 8.7 05/20/24 03:50: WBC 7.2, RBC 3.56 L, Hgb 10.7 L, Hct 33.4 L, MCV 93.8, MCH 30.1, MCHC 32.0, RDW Std Deviation 42.9, RDW Coeff of Nicki 12.2, Plt Count 153, MPV 10.9, Immature Gran % (Auto) 0.300, Neut % (Auto) 62.0, Lymph % (Auto) 20.2, M [place] % (Auto) 15.3 H, Eos % (Auto) 1.9, Baso % (Auto) 0.3, Absolute Neuts (auto) 4.5, Absolute Lymphs (auto) 1.45, Nucleated RBC % 0, Sodium 134 L, Potassium 3.3 L, Chloride 97 L, Carbon Dioxide 33.0 H, Anion Gap 4 L, BUN 34 H, Creatinine 1.04 H, Estim Creat Clear Calc 34.73, Est GFR (MDRD) Af Amer 66, Est GFR (MDRD) Non-Af 55 L, BUN/Creatinine Ratio 32.7 H, Glucose 98, Calcium 9.0, Magnesium 1.9 Micro: Microbiology 05/19/24 22:45 Mucosa - Nasopharyngeal Respiratory Panel (PCR) - Final 05/20/24 00:15 Urine, Clean Catch Legionella Antigen - Final 05/20/24 00:15 Urine, Clean Catch Streptococcus pneumoniae Antigen (M - Final 05/19/24 15:50 Mucosa - Nose SARS-CoV-2, Influenza & RSV (PCR) - Final Radiography Diagnostic Testing: Radiology Impression Chest X-Ray 05/19/24 15:50 IMPRESSION: Right lower lobe airspace disease compatible with pneumonia. Electronically Signed: Reginald Chao MD at 17:00 EDT , Physical Exam Const alert and no apparent distress HEENT head/scalp atraumatic and moist oral mucous membranes Resp normal respiratory effort and no retractions Resp Narrative: RLL crackles. Cardio regular rate, regular rhythm, S1 normal heart sound and S2 normal heart sound GI normal to inspection, nondistended, normoactive bowel sounds, soft to palpation, non-tender and non-distended Extremity normal to inspection Neuro Sensorium / Orientation: awake and alert Assessment & Plan Assessment/Plan (1) Pneumonia: PLAN: Plan Suspected pneumococcal pneumonia * reviewed CXR and looks very similiar to CXR 05/30/23 (no follow up in [facility]) * abx with CTX and azithromycin * strep and legionella antigens negative. Resp panel negative. COVID- 19/influenza/RSV negative * In 2022, she was positive for Klebsiellain SCx, which was sensitive to CTX. SCx pending * PEP therapy Hypokalemia * 2.6 on admission. 3.3 today, will again replace. Chronic conditions: * History of chronic heart failure unclear subtype-Patient reports history of heart failure, do not see abnormal echo in our system but she does take Lasix twice daily-Appears euvolemic, will continue at this time * COPD on 4 L home O2 nightly- DuoNebs, inhaled steroids given that she is on Trelegy Ellipta at home * A-fib: on warfarin. monitor INR. INR 4 today, will hold for now. * RA: leflunomide 5 mg and gets golimumab infusions every 8 weeks. Higher overall risk for infections. Follow up with rheumatology as outpt. * GERD: continue pantoprazole * hypothyroidism: continue levothyroxine VTE prophylaxis: not indicated as pt already anticoagulated. Charges/Coding Visit Charges Inpatient E&M: 91995 Subs Hosp L2
[2024-05-20] MEDS: guaiFENesin 1,200 MG Tablet 1200 MG PO ×2 (09:06→20:42)
[2024-05-20] MEDS: Atenolol 25 MG Tablet PO ×2 (09:06→20:42)
[2024-05-20] MEDS: Acetaminophen 325 MG Tablet 650 MG PO (09:07)
[2024-05-20] MEDS: Leflunomide 10 MG TABLET 5 MG PO (09:07)
[2024-05-20] MEDS: Potassium Chloride Oral Tablet 20 MEQ 40 MEQ PO ×2 (09:07→17:09)
[2024-05-20] MEDS: Gabapentin 300 MG Capsule PO ×2 (09:07→20:42)
[2024-05-20] MEDS: Furosemide 40 MG Tablet PO ×2 (09:07→17:50)
[2024-05-20] MEDS: dilTIAZem CD 180 MG Capsule PO (09:07)
[2024-05-20] MEDS: Pantoprazole Sodium 40 MG Tablet PO (09:08)
[2024-05-20] MEDS: Azithromycin 500 MG in Dextrose 5%-Water (250mL Bag) 250 ML 250 MG IV (09:16)
[2024-05-20 09:30] LABS: Prothrombin Time (Protime)PT. 38.3 SECONDS (11.7-14.9)
[2024-05-20] MEDS: Ceftriaxone 2 GM in 0.9% Normal Saline (50mL MB+) 50 ML IV (10:25)
--- NOTE | 2024-05-20 11:00 | CASEMGMT ---
RN CM Face to Face with patient for initial transition planning/care coordination assessment. RN CM introduced self and role at [facility]. Patient lying in bed, alert and oriented. Patient willing to participate in assessment and is able to answer all questions appropriately. Care providers, pharmacy, and demographics verified. Strata: 2 PCP: [facility] Specialists: Gaye, mental health counselor; Keturah Chao, manager cardiac cath; RA [place]; Cassie, fire lookout Preferred Pharmacy: [facility] Insurance: [facility] Prescription Benefit: yes Living Will/HPOA: yes, son Nirmal Tompkins LNOK: sons, daughter Living Arrangements: Patient lives alone in a single story home with 3 step and will be getting railing installed next week. Patient is independent at home. Transportation: self, daughter DME/HHC: Patient has raised toilet, cane, walker, rollator, grab bars, pulse ox, and home oxygen at 4lpm continuously with POC. No previous SNF. Patient has had [facility] HHC in the past. Patient wishes to discharge home, denies need for home health at this time as she is currently moving, will monitor progress with therapy. Patient states he has no further needs or concerns at this time. CM to follow for discharge planning needs that may arise. Disposition Plan: Patient to discharge home with family support and follow-up plans in place. Shea EDMONDS, RN, CM
[2024-05-20] MEDS: HYDROcodone Bitartrate/Apap 5/325 Tablet PO (15:10)
[2024-05-20] MEDS: Ensure Plus High Protein 120 ML LIQUID PO (17:09)
[2024-05-20] MEDS: Zolpidem Tartrate 5 MG Tablet PO (22:37)
[2024-05-21] VITALS (10 sets, daily range): BP systolic 109–154; BP diastolic 43–75; PULSE 60–123; RESP 15–24; TEMP 36.4–36.8; O2SAT 91–98
[2024-05-21] MEDS: Ipratropium/Albuterol Sulfate 3 ML AMPUL.NEB INHALATION ×4 (02:23→18:55)
[2024-05-21] MEDS: 0.9% Saline Lock 10 ML Syringe IV (05:50)
[2024-05-21] MEDS: Acetaminophen 325 MG Tablet 650 MG PO (05:50)
[2024-05-21] MEDS: Levothyroxine 25 MCG TABLET PO (05:50)
[2024-05-21 06:50] LABS: Absolute Lymphocyte Count 1.47 X10^3/uL (0.83-4.51); Absolute Neutrophil Count 3.6 X10^3/uL (2.0-7.7); Basophil# 0.01 X10^3/uL; Basophil% 0.2 % (0-1); Eosinophil# 0.15 X10^3/uL; Eosinophils% 2.5 % (0-5); Hematocrit 34.2 % (37-47); Hemoglobin 11.6 g/dL (12.0-15.0); Lymphocyte # 1.47 X10^3/ul (0.83-4.51); Lymphocyte % 24.1 % (19-41); Mean Corp Hgb Conc 33.9 g/dL (32-36); Mean Corpuscular Hgb 31.1 pg (27.0-32.0); Mean Corpuscular Volume 91.7 fL (81-99); Mean Platelet Vol. 10.9 fl (6.2-12.0); Monocyte# 0.87 X10^3/uL; Monocyte% 14.2 % (0-10); NRBC Flagged by Analyzer 0 % (0-5); Neutrophil # 3.59 X10^3/uL (2.7-7.7); Neutrophil % 58.7 % (47-70); Platelet Count 185 K/mm3 (150-450); RBC Distribution Width SD 40.5 fl (35.1-43.9); Red Blood Count 3.73 M/mm3 (4.2-5.4); White Blood Count 6.1 K/mm3 (4.4-11.0)
[2024-05-21 07:04] LABS: Prothrombin Time (Protime)PT. 38.6 SECONDS (11.7-14.9)
[2024-05-21 07:17] LABS: Anion Gap 8 (5-15); BUN 24 mg/dL (7-18); BUN/Creat Ratio 30.8 RATIO (10-20); Calcium,Total 9.6 mg/dL (8.5-10.1); Chloride 93 mmol/L (98-107); Creatinine, Serum 0.78 mg/dL (0.55-1.02); EST Glomerular Filtration Rate 76 mL/min (>60); Est Glom Filt Rate - Afr Amer 92 mL/min (>60); Estimated Creatinine Clearance 45.14 ml/min; Glucose 95 mg/dL (74-106); Potassium 2.9 mmol/L (3.5-5.1); Sodium Level 137 mmol/L (136-145)
[2024-05-21] MEDS: Budesonide Respules 0.5 MG/2 ML AMPUL.NEB. INHALATION ×2 (07:29→18:55)
[2024-05-21] MEDS: Gabapentin 300 MG Capsule PO ×2 (08:39→19:46)
[2024-05-21] MEDS: Ceftriaxone 2 GM in 0.9% Normal Saline (50mL MB+) 50 ML IV (08:39)
[2024-05-21] MEDS: Potassium Chloride Oral Tablet 20 MEQ 40 MEQ PO ×2 (08:40→16:52)
[2024-05-21] MEDS: Ensure Plus High Protein 120 ML LIQUID PO ×4 (08:40→19:46)
[2024-05-21] MEDS: Furosemide 40 MG Tablet PO ×2 (08:40→17:05)
[2024-05-21] MEDS: Pantoprazole Sodium 40 MG Tablet PO (08:40)
[2024-05-21] MEDS: Leflunomide 10 MG TABLET 5 MG PO (08:41)
[2024-05-21] MEDS: guaiFENesin 1,200 MG Tablet 1200 MG PO ×2 (08:41→19:48)
[2024-05-21] MEDS: dilTIAZem CD 180 MG Capsule PO (08:42)
[2024-05-21] MEDS: Atenolol 25 MG Tablet PO ×2 (08:42→19:48)
--- NOTE | 2024-05-21 09:08 | PN.HOSP_ITS ---
Reason for Visit Reason for Visit: Diagnoses Pneumonia, unspecified organism (05/19/24) Subjective Subjective Still not feeling well. Objective Data Objective Data Vital Signs: Vital Signs Temp Pulse Resp BP Pulse Ox O2 Del Method O2 Flow Rate 36.4 C L 77 18 109/60 94 Nasal Cannula 4 05/21/24 02:30 05/21/24 07:45 05/21/24 07:45 05/21/24 02:30 05/21/24 08:49 05/21/24 08:49 05/21/24 08:49 Oxygen Flow Rate (L/min) 4 Oxygen Delivery Method Nasal Cannula Weight: 54.1 kg Body Mass Index (BMI) 22.5 Intake & Output: Intake and Output for Last 24 Hours 05/19/24 05/20/24 05/21/24 23:59 23:59 23:59 Intake Total 1305 / 1305 1425 / 1425 120 / 120 Output Total 600 / 600 Balance 1305 / 1305 825 / 825 120 / 120 Lab / Micro Data 05/21/24 05:35 05/21/24 05:35 Labs: Laboratory Results - last 24 hr 05/20/24 09:10: PT 38.3 H, INR 4.0 H* 05/21/24 05:35: WBC 6.1, RBC 3.73 L, Hgb 11.6 L, Hct 34.2 L, MCV 91.7, MCH 31.1, MCHC 33.9 D, RDW Std Deviation 40.5, RDW Coeff of Nicki 12.0, Plt Count 185, MPV 10.9, Immature Gran % (Auto) 0.300, Neut % (Auto) 58.7, Lymph % (Auto) 24.1, M [place] % (Auto) 14.2 H, Eos % (Auto) 2.5, Baso % (Auto) 0.2, Absolute Neuts (auto) 3.6, Absolute Lymphs (auto) 1.47, Nucleated RBC % 0, PT 38.6 H, INR 4.0 H*, Sodium 137, Potassium 2.9 L, Chloride 93 L, Carbon Dioxide 35.0 H, Anion Gap 8, BUN 24 H, Creatinine 0.78, Estim Creat Clear Calc 45.14, Est GFR (MDRD) Af Amer 92, Est GFR (MDRD) Non-Af 76, BUN/Creatinine Ratio 30.8 H, Glucose 95, Calcium 9.6 Micro: Microbiology 05/19/24 22:45 Mucosa - Nasopharyngeal Respiratory Panel (PCR) - Final 05/20/24 00:15 Urine, Clean Catch Legionella Antigen - Final 05/20/24 00:15 Urine, Clean Catch Streptococcus pneumoniae Antigen (M - Final 05/19/24 15:50 Mucosa - Nose SARS-CoV-2, Influenza & RSV (PCR) - Final Physical Exam Const alert and no apparent distress HEENT head/scalp atraumatic and moist oral mucous membranes Resp Resp Narrative: bilateral wheezes Cardio regular rate, regular rhythm, S1 normal heart sound and S2 normal heart sound GI normal to inspection, nondistended, normoactive bowel sounds, soft to palpation, non-tender and non-distended Extremity normal to inspection and full ROM Assessment & Plan Assessment/Plan (1) Pneumonia: PLAN: Plan Suspected pneumococcal pneumonia * reviewed CXR and looks very similiar to CXR 05/30/23 (no follow up in [facility]) * abx with CTX and azithromycin * strep and legionella antigens negative. Resp panel negative. COVID- 19/influenza/RSV negative * In 2022, she was positive for Klebsiella SCx, which was sensitive to CTX. SCx pending * PEP therapy Hypokalemia * ongoing. continue replacement. Chronic conditions: * History of chronic heart failure unclear subtype-Patient reports history of heart failure, do not see abnormal echo in our system but she does take Lasix twice daily-Appears euvolemic, will continue at this time * COPD on 4 L home O2 nightly- DuoNebs, inhaled steroids given that she is on Trelegy Ellipta at home * A-fib: on warfarin. monitor INR. INR 4 today, continue to hold for now. * RA: leflunomide 5 mg and gets golimumab infusions every 8 weeks. Higher overall risk for infections. Follow up with rheumatology as outpt. * GERD: continue pantoprazole * hypothyroidism: continue levothyroxine VTE prophylaxis: not indicated as pt already anticoagulated. Charges/Coding Visit Charges Inpatient E&M: 85073 Subs Hosp L2
[2024-05-21] MEDS: Azithromycin 500 MG in Dextrose 5%-Water (250mL Bag) 250 ML 250 MG IV (10:30)
[2024-05-21] MEDS: Potassium Chloride Oral Tablet 20 MEQ 60 MEQ PO (12:48)
[2024-05-21] MEDS: HYDROcodone Bitartrate/Apap 5/325 Tablet PO (15:21)
[2024-05-21] MEDS: Zolpidem Tartrate 5 MG Tablet PO (22:36)
[2024-05-22 01:30] VITALS: BP 98/67; PULSE 74; RESP 16; TEMP 36.7; O2SAT 96
[2024-05-22 04:09] LABS: Absolute Lymphocyte Count 1.79 X10^3/uL (0.83-4.51); Absolute Neutrophil Count 1.8 X10^3/uL (2.0-7.7); Basophil# 0.03 X10^3/uL; Basophil% 0.7 % (0-1); Eosinophil# 0.21 X10^3/uL; Eosinophils% 4.8 % (0-5); Hematocrit 35.2 % (37-47); Hemoglobin 11.5 g/dL (12.0-15.0); Lymphocyte # 1.79 X10^3/ul (0.83-4.51); Lymphocyte % 40.9 % (19-41); Mean Corp Hgb Conc 32.7 g/dL (32-36); Mean Corpuscular Hgb 30.3 pg (27.0-32.0); Mean Corpuscular Volume 92.6 fL (81-99); Mean Platelet Vol. 10.2 fl (6.2-12.0); Monocyte# 0.53 X10^3/uL; Monocyte% 12.1 % (0-10); NRBC Flagged by Analyzer 0 % (0-5); Platelet Count 214 K/mm3 (150-450); RBC Distribution Width SD 41.2 fl (35.1-43.9); White Blood Count 4.4 K/mm3 (4.4-11.0)
[2024-05-22 04:22] LABS: International Normalized Ratio 4.2
[2024-05-22 04:36] LABS: Anion Gap 4 (5-15); BUN 27 mg/dL (7-18); Calcium,Total 9.7 mg/dL (8.5-10.1); Chloride 99 mmol/L (98-107); Creatinine, Serum 0.87 mg/dL (0.55-1.02); EST Glomerular Filtration Rate 67 mL/min (>60); Est Glom Filt Rate - Afr Amer 81 mL/min (>60); Estimated Creatinine Clearance 41.51 ml/min; Glucose 97 mg/dL (74-106); Potassium 3.6 mmol/L (3.5-5.1); Sodium Level 138 mmol/L (136-145)
[2024-05-22 04:43] VITALS: BMI 22.4
[2024-05-22] MEDS: Levothyroxine 25 MCG TABLET PO (04:55)
[2024-05-22 07:09] VITALS: PULSE 84; RESP 17; O2SAT 97
[2024-05-22] MEDS: Budesonide Respules 0.5 MG/2 ML AMPUL.NEB. INHALATION (07:09)
[2024-05-22] MEDS: Ipratropium/Albuterol Sulfate 3 ML AMPUL.NEB INHALATION (07:09)
--- NOTE | 2024-05-22 08:03 | PCM.PN.HOSP ---
Reason for Visit Reason for Visit: Diagnoses Pneumonia, unspecified organism (05/19/24) Subjective Subjective Breathing well. Ready to go home. Objective Data Objective Data Vital Signs: Vital Signs Temp Pulse Resp BP Pulse Ox O2 Del Method O2 Flow Rate 36.7 C 84 17 98/67 97 Nasal Cannula 2 05/22/24 01:30 05/22/24 07:09 05/22/24 07:09 05/22/24 01:30 05/22/24 07:09 05/22/24 07:09 05/22/24 07:09 Oxygen Flow Rate (L/min) 2 Oxygen Delivery Method Nasal Cannula Weight: 54 kg Body Mass Index (BMI) 22.4 Intake & Output: Intake and Output for Last 24 Hours 05/20/24 05/21/24 05/22/24 23:59 23:59 23:59 Intake Total 1425 / 1425 425 / 785 600 / 600 Output Total 600 / 600 525 / 525 Balance 825 / 825 425 / 785 75 / 75 Lab / Micro Data 05/22/24 03:53 05/22/24 03:53 Labs: Laboratory Results - last 24 hr 05/22/24 03:53: WBC 4.4, RBC 3.80 L, Hgb 11.5 L, Hct 35.2 L, MCV 92.6, MCH 30.3, MCHC 32.7, RDW Std Deviation 41.2, RDW Coeff of Nicki 12.0, Plt Count 214, MPV 10.2, Immature Gran % (Auto) 0.500, Neut % (Auto) 41.0 L, Lymph % (Auto) 40.9, [place] % (Auto) 12.1 H, Eos % (Auto) 4.8, Baso % (Auto) 0.7, Absolute Neuts (auto) 1.8 L, Absolute Lymphs (auto) 1.79, Nucleated RBC % 0, PT 40.0 H, INR 4.2 H*, Sodium 138, Potassium 3.6, Chloride 99, Carbon Dioxide 34.0 H, Anion Gap 4 L, BUN 27 H, Creatinine 0.87, Estim Creat Clear Calc 41.51, Est GFR (MDRD) Af Amer 81, Est GFR (MDRD) Non-Af 67, BUN/Creatinine Ratio 31.0 H, Glucose 97, Calcium 9.7 Micro: Microbiology 05/19/24 22:45 Mucosa - Nasopharyngeal Respiratory Panel (PCR) - Final 05/20/24 00:15 Urine, Clean Catch Legionella Antigen - Final 05/20/24 00:15 Urine, Clean Catch Streptococcus pneumoniae Antigen (M - Final 05/19/24 15:50 Mucosa - Nose SARS-CoV-2, Influenza & RSV (PCR) - Final Physical Exam Const alert and no apparent distress HEENT head/scalp atraumatic and moist oral mucous membranes Resp normal respiratory effort, no retractions and no use of accessory muscles Resp Narrative: crackles RLL. Cardio regular rate, regular rhythm, S1 normal heart sound and S2 normal heart sound GI normal to inspection, nondistended, normoactive bowel sounds, soft to palpation, non-tender and non-distended Neuro Sensorium / Orientation: awake and alert Assessment & Plan Assessment/Plan (1) Pneumonia: PLAN: Plan Suspected pneumococcal pneumonia reviewed CXR and looks very similiar to CXR 05/30/23 (no follow up in [facility]) abx with CTX and azithromycin strep and legionella antigens negative. Resp panel negative. COVID-19/influenza/RSV negative In 2022, she was positive for Klebsiella SCx, which was sensitive to CTX. SCx pending PEP therapy Hypokalemia ongoing. continue replacement. Chronic conditions: History of chronic heart failure unclear subtype-Patient reports history of heart failure, do not see abnormal echo in our system but she does take Lasix twice daily-Appears euvolemic, will continue at this time COPD on 4 L home O2 nightly- DuoNebs, inhaled steroids given that she is on Trelegy Ellipta at home A-fib: on warfarin. monitor INR. INR 4 today, continue to hold for now. Patient checks her INR at home. Advised her that the abx are contributing to elevated INR. Resume warfarin likely 05/24, but check her INR beforehand. RA: leflunomide 5 mg and gets golimumab infusions every 8 weeks. Higher overall risk for infections. Follow up with rheumatology as outpt. GERD: continue pantoprazole hypothyroidism: continue levothyroxine VTE prophylaxis: not indicated as pt already anticoagulated.
[2024-05-22 08:31] VITALS: O2SAT 92; O2SAT 97
[2024-05-22] MEDS: Potassium Chloride Oral Tablet 20 MEQ 40 MEQ PO (08:53)
[2024-05-22] MEDS: 0.9% Saline Lock 10 ML Syringe IV (08:55)
[2024-05-22 09:00] VITALS: BP 113/84; PULSE 68; RESP 16; TEMP 36.6; O2SAT 97
[2024-05-22] MEDS: Ceftriaxone 2 GM in 0.9% Normal Saline (50mL MB+) 50 ML IV (09:00)
[2024-05-22] MEDS: dilTIAZem CD 180 MG Capsule PO (09:01)
[2024-05-22] MEDS: Gabapentin 300 MG Capsule PO (09:01)
[2024-05-22] MEDS: Leflunomide 10 MG TABLET 5 MG PO (09:01)
[2024-05-22] MEDS: Ensure Plus High Protein 120 ML LIQUID PO (09:01)
[2024-05-22] MEDS: Atenolol 25 MG Tablet PO (09:01)
[2024-05-22] MEDS: Pantoprazole Sodium 40 MG Tablet PO (09:01)
[2024-05-22] MEDS: guaiFENesin 1,200 MG Tablet 1200 MG PO (09:02)
[2024-05-22] MEDS: Azithromycin 500 MG in Dextrose 5%-Water (250mL Bag) 250 ML 250 MG IV (09:19)
--- NOTE | 2024-05-22 09:53 | DS.PCM_ITS ---
Providers Date of Admission: 05/19/24 Primary Care Physician: Dr. Tasneem Beck MD Reason For Visit: HYPOXIA, HYPOKALEMIA Diagnosis Discharge Diagnosis (1) Pneumonia: Status: Acute Code(s): J18.9 - Pneumonia, unspecified organism Plan Suspected pneumococcal pneumonia * reviewed CXR and looks very similiar to CXR 05/30/23 (no follow up in [facility]) * abx with CTX and azithromycin * strep and legionella antigens negative. Resp panel negative. COVID- 19/influenza/RSV negative * In 2022, she was positive for Klebsiella SCx, which was sensitive to CTX. SCx pending * PEP therapy Hypokalemia * ongoing. continue replacement. Chronic conditions: * History of chronic heart failure unclear subtype-Patient reports history of heart failure, do not see abnormal echo in our system but she does take Lasix twice daily-Appears euvolemic, will continue at this time * COPD on 4 L home O2 nightly- DuoNebs, inhaled steroids given that she is on Trelegy Ellipta at home * A-fib: on warfarin. monitor INR. INR 4 today, continue to hold for now. Patient checks her INR at home. Advised her that the abx are contributing to elevated INR. Resume warfarin likely 05/24, but check her INR beforehand. * RA: leflunomide 5 mg and gets golimumab infusions every 8 weeks. Higher overall risk for infections. Follow up with rheumatology as outpt. * GERD: continue pantoprazole * hypothyroidism: continue levothyroxine VTE prophylaxis: not indicated as pt already anticoagulated. Medications at Discharge Home Medications calcium 200 mg (as citrate)-vitamin D3 6.25 mcg (250 unit) tablet 1 ea PO DAILY SUPPLEMENT 08/12/14 zolpidem 10 mg tablet 10 mg PO QHS PRN sleep 03/13/18 gabapentin 300 mg capsule 300 mg PO BID pain 09/15/20 acetaminophen 500 mg tablet 1,000 mg PO DAILY PRN PRN Pain 1-10 Or Fever 09/25/20 coenzyme Q10 100 mg capsule 100 mg PO DAILY SUPPLEMENT 09/25/20 levothyroxine 25 mcg tablet 25 mcg PO DAILY THYROID 09/25/20 magnesium 30 mg tablet 30 mg PO DAILY SUPPLEMENT 09/25/20 multivitamin with minerals 1 tab PO DAILY SUPPLEMETN 09/25/20 warfarin 1 mg tablet 1 mg PO DAILY Blood thinner 10/19/21 atenolol 25 mg tablet 25 mg PO BID HEART #60 tabs 10/22/21 pantoprazole 40 mg tablet,delayed release (Protonix) 40 mg PO DAILY GERD 04/22/22 albuterol sulfate 90 mcg/actuation aerosol inhaler 2 puff inhalation Q4H PRN shortness of breath or wheezing #8.5 grams 05/07/22 fluticasone propionate 50 mcg/actuation nasal spray,suspension (Flonase Allergy Relief) 2 spray intranasal QDAY Allergies #16 grams 05/07/22 Nebulizer machine #1 ea 05/08/23 budesonide 1 mg/2 mL suspension for nebulization 1 mg (2 mL) inhalation BID #60 mL 05/08/23 ipratropium 0.5 mg-albuterol 3 mg (2.5 mg base)/3 mL nebulization soln 3 ml inhalation Q4H PRN PRN SOB &/OR WHEEZING #180 mL 05/08/23 leflunomide 10 mg tablet 5 mg PO DAILY Arthritis 05/08/23 fluticasone fur. 100 mcg-umeclid 62.5 mcg-vilant 25 mcg inhalat.powder (Trelegy Ellipta) 1 inh inhalation Q24H lungs #60 ea 09/12/23 diltiazem HCl 180 mg capsule,extended release 24 hr 180 mg PO QDAY heart rate 11/18/23 empagliflozin 10 mg tablet (Jardiance) 10 mg PO QDAY DM 11/18/23 metolazone 2.5 mg tablet 2.5 mg PO Q OTHER DAY PRN swelling 11/18/23 furosemide 40 mg tablet 40 mg PO BID Swelling #60 tabs 12/26/23 hydrocodone-acetaminophen 5-325mg 5mg-325mg 1 tab PO Q8H PRN PRN pain 05/19/24 potassium chloride 20 mEq tablet,extended release(part/cryst) 40 meq PO BID 05/19/24 amoxicillin 875 mg-potassium clavulanate 125 mg tablet 1 tab PO BID #6 tabs 05/22/24 Hospital Course Operations None Procedures None Summary of Care Provided Minutes Spent on Discharge: 32 Weight / BMI Weight Weight: 54 kg Body Mass Index (BMI) 22.4 ABG / Lab / Microbiology Data 05/22/24 03:53 05/22/24 03:53 Laboratory: Laboratory Results - last 24 hr 05/22/24 03:53: WBC 4.4, RBC 3.80 L, Hgb 11.5 L, Hct 35.2 L, MCV 92.6, MCH 30.3, MCHC 32.7, RDW Std Deviation 41.2, RDW Coeff of Nicki 12.0, Plt Count 214, MPV 10.2, Immature Gran % (Auto) 0.500, Neut % (Auto) 41.0 L, Lymph % (Auto) 40.9, M [place] % (Auto) 12.1 H, Eos % (Auto) 4.8, Baso % (Auto) 0.7, Absolute Neuts (auto) 1.8 L, Absolute Lymphs (auto) 1.79, Nucleated RBC % 0, PT 40.0 H, INR 4.2 H*, Sodium 138, Potassium 3.6, Chloride 99, Carbon Dioxide 34.0 H, Anion Gap 4 L, B UN 27 H, Creatinine 0.87, Estim Creat Clear Calc 41.51, Est GFR (MDRD) Af Amer 81, Est GFR (MDRD) Non-Af 67, BUN/Creatinine Ratio 31.0 H, Glucose 97, Calcium 9.7 Microbiology: Microbiology 05/19/24 22:45 Mucosa - Nasopharyngeal Respiratory Panel (PCR) - Final 05/20/24 00:15 Urine, Clean Catch Legionella Antigen - Final 05/20/24 00:15 Urine, Clean Catch Streptococcus pneumoniae Antigen (M - Final 05/19/24 15:50 Mucosa - Nose SARS-CoV-2, Influenza & RSV (PCR) - Final D/C Instructions Discharge Diet: No restrictions Meaningful Use Info Meaningful Use Meaningful Use Diagnoses (Choose all that apply): None applicable Ischemic Stroke Statin Dosing Therapy Reference: STATIN DOSE THERAPY REFERENCE: * Patients > 75 years receive moderate or high dose statin therapy. * Patients 75 years or YOUNGER should receive HIGH intensity statin dose unless contraindicated. You will be required to document reason for non-treatment if statin daily dose does not meet guidelines. HIGH DOSE STATIN THERAPY DAILY Atorvastatin > than or = to 40 mg Rosuvastatin > than or = to 20 mg Amlodipine + Atorvastatin > than or = to 2.5/40 mg Ezetimibe + Simvastatin 10/80 mg Simvastatin 80mg Discharge Plan Admission Admit Date/Time: 05/19/24 17:26 Primary Reason for Your Visit: pneumonia Attending Provider: Trenton Mccarty Primary Care Provider: Tasneem Beck Consulting Providers: Eva Lindquist Instructions Additional Instructions / Restrictions: Continue your antibiotics until completion. Follow up with Dr. Thorpe (pulmonary) for follow up. Also, you should have a follow up chest X-ray in 6-8 weeks to see that your pneumonia is improving. Either Dr. Beck or Dr. Thorpe could order that. Hold your coumadin as your INR is still elevated. The antibiotics are at least partially contributing. You should not restart your coumadin until 05/24, but check your INR then. If it 3.2 or less, restart your coumadin. Discharge Orders/Prescriptions Prescriptions: New amoxicillin-pot clavulanate 875-125 mg tablet 1 tab PO BID Qty: 6 0RF Continued gabapentin 300 mg capsule 300 mg PO BID pantoprazole [Protonix] 40 mg tablet,delayed release (DR/EC) 40 mg PO DAILY albuterol sulfate 90 mcg/actuation HFA aerosol inhaler 2 puff inhalation Q4H PRN (Reason: shortness of breath or wheezing) Qty: 8.5 6RF Rx Instructions: administer with spacer fluticasone propionate [Flonase Allergy Relief] 50 mcg/actuation spray,suspension 2 spray intranasal QDAY Qty: 16 3RF Rx Instructions: administer into each nostril leflunomide 10 mg tablet 5 mg PO DAILY Patient Comments: Take ONE-HALF TABLET BY MOUTH DAILY budesonide 1 mg/2 mL suspension for nebulization 1 mg inhalation BID Qty: 60 12RF ipratropium-albuterol 0.5 mg-3 mg(2.5 mg base)/3 mL solution for nebulization 3 ml inhalation Q4H PRN PRN (Reason: SOB &/OR WHEEZING) Qty: 180 12RF (DME) Nebulizer machine See Rx Instructions .ROUTE .MEDSUPPLY Qty: 1 0RF Rx Instructions: As directed metolazone 2.5 mg tablet 2.5 mg PO Q OTHER DAY PRN (Reason: swelling) diltiazem HCl 180 mg capsule,extended release 24hr 180 mg PO QDAY Jardiance 10 mg tablet 10 mg PO QDAY zolpidem 10 mg tablet 10 mg PO QHS PRN (Reason: sleep) Patient Comments: SLEEPING PILL calcium citrate-vitamin D3 1 EACH tablet 1 ea PO DAILY Patient Comments: supplement acetaminophen 500 MG tablet 1,000 mg PO DAILY PRN PRN (Reason: Pain 1-10 Or Fever) multivitamin with minerals 1 EACH tablet 1 tab PO DAILY magnesium 30 MG tablet 30 mg PO DAILY coenzyme Q10 100 MG capsule 100 mg PO DAILY levothyroxine 25 MCG tablet 25 mcg PO DAILY potassium chloride 20 mEq tablet,ER particles/crystals 40 meq PO BID hydrocodone-acetaminophen 5-325 mg tablet 1 tab PO Q8H PRN PRN (Reason: pain) atenolol 25 mg tablet 25 mg PO BID Qty: 60 11RF Trelegy Ellipta 100-62.5-25 mcg blister with device 1 inh INHALATION Q24H Qty: 60 11RF furosemide 40 mg tablet 40 mg PO BID Qty: 60 11RF Held warfarin 1 mg tablet 1 mg PO DAILY Hold Instructions: Resume on 05/24/24. Protocol: Dose Management Condition: Friday Dose/Route: 1 mg Instruction: 1 x 1 mg tablet Condition: Friday Dose/Route: 0 mg Instruction: 0 tablets Condition: Friday Dose/Route: 0.5 mg Instruction: 0.5 x 1 mg tablets Condition: Friday Dose/Route: 1 mg Instruction: 1 x 1 mg tablet Condition: Dose/Route: 0.5 mg Instruction: 0.5 x 1 mg tablets Condition: Friday Dose/Route: 1 mg Instruction: 1 x 1 mg tablet Condition: Friday Dose/Route: 0.5 mg Instruction: 0.5 x 1 mg tablets Protocol Text: Adjustment Start Date: Friday05/06/22 INR Value: 3.6 INR Date: 05/06/22 Recheck Date: 05/13/22 Rx Instructions: Managed by Dr. Beck Referrals / Follow Up: Tasneem Beck MD [Primary Care Provider] - Within 2 Weeks Disposition Disposition (needs filled in before D/C Order can be placed): Home, Self Care Charges/Coding Visit Charges Inpatient E&M: 82155 Disch Hosp >30min
[2024-05-22] MEDS: Furosemide 40 MG Tablet PO (11:57)
[2024-05-22] MEDS: HYDROcodone Bitartrate/Apap 5/325 Tablet PO (12:01)
[2024-05-22 13:15] VITALS: BP 110/75; PULSE 71; RESP 16; TEMP 36.6; O2SAT 97
== END 2024-05-22 13:42 | disposition home or self-care (01) | DRG 194 ==
LOC: ED 17:16 → PCU 17:52
PROVIDERS: Admitting Provider Internal Medicine; Emergency Provider Emergency Medicine; PCP Internal Medicine
DX: J13 Pneumonia due to Streptococcus pneumoniae (principal); J44.0 Chronic obstructive pulmonary disease with (acute) lower respiratory infection; E87.1 Hypo-osmolality and hyponatremia; I13.0 Hypertensive heart and chronic kidney disease with heart failure and stage 1 through stage 4 chronic kidney disease, or unspecified chronic kidney disease; I50.9 Heart failure, unspecified; N18.31 Chronic kidney disease, stage 3a; E03.9 Hypothyroidism, unspecified; I48.0 Paroxysmal atrial fibrillation; E87.6 Hypokalemia; E78.5 Hyperlipidemia, unspecified; K21.9 Gastro-esophageal reflux disease without esophagitis; R09.02 Hypoxemia; Z79.890 Hormone replacement therapy; J44.89 Other specified chronic obstructive pulmonary disease; Z87.891 Personal history of nicotine dependence; Z79.01 Long term (current) use of anticoagulants; Z79.51 Long term (current) use of inhaled steroids; Z99.81 Dependence on supplemental oxygen; Z86.73 Personal history of transient ischemic attack (TIA), and cerebral infarction without residual deficits; Z79.899 Other long term (current) drug therapy; Z79.84 Long term (current) use of oral hypoglycemic drugs; Z96.643 Presence of artificial hip joint, bilateral
CPT/HCPCS: 36415; 71046; 80048; 83735; 83880; 84484; 85025; 85610; 87070; 87205; 87449; 87631; 87633; 93005; 94640; 94668; 97162; 97166; 97535; 97802; 99252; 99285; J7040; A4216; G0463; J0696; J2405

== ENCOUNTER → 2024-06-02 | Outpatient (CLI) | payer MEDICARE, SELFPAY ==
[2024-06-02 12:08] LABS: Absolute Lymphocyte Count 1.82 X10^3/uL (0.83-4.51); Absolute Neutrophil Count 4.3 X10^3/uL (2.0-7.7); Basophil# 0.04 X10^3/uL; Basophil% 0.5 % (0-1); Eosinophil# 0.14 X10^3/uL; Eosinophils% 1.9 % (0-5); Hematocrit 37.7 % (37-47); Hemoglobin 12.2 g/dL (12.0-15.0); Lymphocyte # 1.82 X10^3/ul (0.83-4.51); Lymphocyte % 24.8 % (19-41); Mean Corp Hgb Conc 32.4 g/dL (32-36); Mean Corpuscular Hgb 30.1 pg (27.0-32.0); Mean Corpuscular Volume 93.1 fL (81-99); Monocyte# 1.06 X10^3/uL; Monocyte% 14.4 % (0-10); NRBC Flagged by Analyzer 0 % (0-5); Neutrophil # 4.28 X10^3/uL (2.7-7.7); Neutrophil % 58.3 % (47-70); Platelet Count 374 K/mm3 (150-450); RBC Distribution Width CV 12.7 % (11.6-14.6); RBC Distribution Width SD 42.6 fl (35.1-43.9); Red Blood Count 4.05 M/mm3 (4.2-5.4); White Blood Count 7.4 K/mm3 (4.4-11.0)
[2024-06-02 12:35] LABS: AST(SGOT) 24 U/L (15-37); Alanine Aminotransfer ALT/SGPT 22 U/L (13-56); Albumin, Serum 3.5 g/dL (3.2-5.0); Alkaline Phosphatase 72 U/L (45-117); Anion Gap 7 (5-15); BUN 49 mg/dL (7-18); BUN/Creat Ratio 47.1 RATIO (10-20); Calcium,Total 10.3 mg/dL (8.5-10.1); Chloride 97 mmol/L (98-107); Creatinine, Serum 1.04 mg/dL (0.55-1.02); EST Glomerular Filtration Rate 55 mL/min (>60); Est Glom Filt Rate - Afr Amer 66 mL/min (>60); Globulin 3.5 g/dL (2.2-4.2); Glucose 110 mg/dL (74-106); Potassium 3.3 mmol/L (3.5-5.1); Sodium Level 137 mmol/L (136-145)
== END | disposition home or self-care (01) ==
LOC: MTLAB 09:07
PROVIDERS: PCP Internal Medicine; Referring Provider Internal Medicine Rheumatology; Visit Provider Internal Medicine Rheumatology
DX: M06.09 Rheumatoid arthritis without rheumatoid factor, multiple sites (principal); Z79.899 Other long term (current) drug therapy; R76.8 Other specified abnormal immunological findings in serum; M19.041 Primary osteoarthritis, right hand; M35.00 Sjogren syndrome, unspecified
CPT/HCPCS: 36415; 80053; 85025

== ENCOUNTER → 2024-08-10 | Outpatient (CLI) | payer MEDICARE, SELFPAY ==
[2024-08-10 12:31] LABS: Anion Gap 5 (5-15); BNP,B-Type NATRIURETIC PEPTIDE 486.9 pg/mL (0-100); BUN 29 mg/dL (7-18); BUN/Creat Ratio 26.6 RATIO (10-20); Calcium,Total 9.6 mg/dL (8.5-10.1); Chloride 103 mmol/L (98-107); Creatinine, Serum 1.09 mg/dL (0.55-1.02); EST Glomerular Filtration Rate 52 mL/min (>60); Est Glom Filt Rate - Afr Amer 63 mL/min (>60); Glucose 99 mg/dL (74-106); Potassium 4.5 mmol/L (3.5-5.1); Sodium Level 141 mmol/L (136-145)
== END | disposition home or self-care (01) ==
LOC: LAB 11:40
PROVIDERS: PCP Internal Medicine; Referring Provider Internal Medicine Cardiovascular Disease; Visit Provider Internal Medicine Cardiovascular Disease
DX: I50.9 Heart failure, unspecified (principal); I48.0 Paroxysmal atrial fibrillation; R06.09 Other forms of dyspnea
CPT/HCPCS: 36415; 80048; 83880

== ENCOUNTER → 2024-08-23 | Outpatient (CLI) | payer MEDICARE, SELFPAY ==
[2024-08-23 12:12] LABS: Absolute Lymphocyte Count 2.09 X10^3/uL (0.83-4.51); Basophil# 0.03 X10^3/uL; Basophil% 0.4 % (0-1); Eosinophil# 0.07 X10^3/uL; Eosinophils% 0.9 % (0-5); Hematocrit 41.7 % (37-47); Hemoglobin 13.6 g/dL (12.0-15.0); Lymphocyte # 2.09 X10^3/ul (0.83-4.51); Lymphocyte % 25.8 % (19-41); Mean Corp Hgb Conc 32.6 g/dL (32-36); Mean Corpuscular Volume 92.1 fL (81-99); Monocyte# 0.84 X10^3/uL; Monocyte% 10.4 % (0-10); NRBC Flagged by Analyzer 0 % (0-5); Neutrophil # 5.03 X10^3/uL (2.7-7.7); Neutrophil % 62.1 % (47-70); Platelet Count 286 K/mm3 (150-450); RBC Distribution Width CV 13.1 % (11.6-14.6); RBC Distribution Width SD 44.1 fl (35.1-43.9); Red Blood Count 4.53 M/mm3 (4.2-5.4); White Blood Count 8.1 K/mm3 (4.4-11.0)
[2024-08-23 12:28] LABS: ALB/GLOB Ratio 1.1 RATIO (0.9-2.4); AST(SGOT) 24 U/L (15-37); Alanine Aminotransfer ALT/SGPT 31 U/L (13-56); Albumin, Serum 3.7 g/dL (3.2-5.0); Alkaline Phosphatase 91 U/L (45-117); Anion Gap 10 (5-15); BUN 33 mg/dL (7-18); BUN/Creat Ratio 27.3 RATIO (10-20); Calcium,Total 10.1 mg/dL (8.5-10.1); Chloride 93 mmol/L (98-107); Creatinine, Serum 1.21 mg/dL (0.55-1.02); EST Glomerular Filtration Rate 46 mL/min (>60); Est Glom Filt Rate - Afr Amer 56 mL/min (>60); Globulin 3.5 g/dL (2.2-4.2); Glucose 86 mg/dL (74-106); Potassium 3.4 mmol/L (3.5-5.1); Protein, Total 7.2 g/dL (6.4-8.2); Sodium Level 137 mmol/L (136-145)
== END | disposition home or self-care (01) ==
LOC: MTLAB 10:37
PROVIDERS: PCP Internal Medicine; Referring Provider Internal Medicine Rheumatology; Visit Provider Internal Medicine Rheumatology
DX: M06.09 Rheumatoid arthritis without rheumatoid factor, multiple sites (principal); Z79.899 Other long term (current) drug therapy; R76.8 Other specified abnormal immunological findings in serum; M19.041 Primary osteoarthritis, right hand; M19.042 Primary osteoarthritis, left hand
CPT/HCPCS: 36415; 80053; 85025

== ENCOUNTER 2024-09-27 14:40 | Inpatient (IN) | payer MEDICARE, SELFPAY ==
[2024-09-27] VITALS (21 sets, daily range): BP systolic 78–210; BP diastolic 49–179; PULSE 117–190; RESP 14–38; TEMP 36.2–40.2; O2SAT 85–100; BMI 26.9; BMI 25.6
--- NOTE | 2024-09-27 14:57 | EKG12_ITS ---
Test Reason : Blood Pressure : */* mmHG Vent. Rate : 169 BPM Atrial Rate : * BPM P-R Int : * ms QRS Dur : 78 ms QT Int : 274 ms P-R-T Axes : * 163 -30 degrees QTcB Int : 459 ms Critical Test Result: High HR Atrial fibrillation with rapid ventricular response Right axis deviation Nonspecific ST abnormality Abnormal QRS-T angle, consider primary T wave abnormality Abnormal ECG Confirmed by Gary Schulz ([id number]), continuity editor NAVID SALAS ([id number]) on 09/28/2024 10:41:32 AM Referred By: HOWIE Confirmed By: Gary Schulz
[2024-09-27] MEDS: 0.9% Normal Saline (1000mL) 1,000 ML 1000 ML IV (15:07)
[2024-09-27] MEDS: Ondansetron 4 MG/2 ML Vial IV (15:08)
--- NOTE | 2024-09-27 15:13 | EX.ED.DYSGE1 ---
HPI History of Present Illness Chief Complaint: Fall Detail of Chief Complaint: Patient was found on the ground by family Informant: patient and other (Last seen or spoken to last evening at 8 PM) Onset/Context/Timing Onset: - (Between 8 PM yesterday and today when she arrived) Context: - Timing: - (Uncertain) Quality: Patient not alert is awake Location: Found at home on the ground between a table and a chair Current Severity: Unable to determine Maximum Severity: Unable to determine Worsened by: Unknown Relieved by: Apparently nothing Associated Symptoms Associated Symptoms: Patient reports she does not feel well Narrative Narrative: Patient is a 79-year-old female. She has history of hyperlipidemia, congestive heart failure and proximal atrial fibrillation. She is on Coumadin. Uncertain when she took her last dose. Looking at her med list she is also on atenolol, diltiazem, furosemide levothyroxine omeprazole. Patient does report headache. Patient reports thirst and endorses dry mouth. She apparently was incontinent of urine and stool according to the nurse. History is very limited. Prior similar symptoms: No Recent Illness/Hospitalization: No PFSH PFSH Medical History Hyperlipidemia CHF (congestive heart failure) Paroxysmal atrial fibrillation Chronic hypoxemic respiratory failure Anemia Spinal cord stimulator status shelter current use of amiodarone SOB (shortness of breath) on exertion Pulmonary hypertension Persistent atrial fibrillation Anticoagulant long-term use Edema Lumbosacral radiculopathy at L5 Asthma-chronic obstructive pulmonary disease overlap syndrome GI bleed 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 classification GERD (gastroesophageal reflux disease) Pneumonia Bronchitis Abnormal pulmonary function test Essential hypertension Small bowel obstruction TIA (transient ischemic attack) Osteoarthritis PUD (peptic ulcer disease) Nonrheumatic aortic (valve) insufficiency Nonrheumatic tricuspid valve regurgitation Carotid bruit Home Medications ?Medication ?Instructions ?Recorded ?Last Taken ?Type calcium 200 mg (as 1 ea PO DAILY SUPPLEMENT 08/12/14 09/25/20 History citrate)-vitamin D3 6.25 mcg (250 unit) tablet zolpidem 10 mg tablet 10 mg PO QHS PRN sleep 03/13/18 05/29/23 History gabapentin 300 mg capsule 300 mg PO BID pain 09/15/20 05/30/23 History acetaminophen 500 mg tablet 1,000 mg PO DAILY PRN PRN Pain 09/25/20 09/22/20 History 1-10 Or Fever coenzyme Q10 100 mg capsule 100 mg PO DAILY SUPPLEMENT 09/25/20 09/25/20 History levothyroxine 25 mcg tablet 25 mcg PO DAILY THYROID 09/25/20 05/30/23 History magnesium 30 mg tablet 30 mg PO DAILY SUPPLEMENT 09/25/20 09/24/20 History multivitamin with minerals 1 tab PO DAILY supplement 09/25/20 09/25/20 History warfarin 1 mg tablet 1 mg PO DAILY Blood thinner 10/19/21 05/29/23 History Held on 05/22/24. Instructions: Resume on 05/24/24. atenolol 25 mg tablet 25 mg PO BID HEART #60 tabs 10/22/21 05/30/23 09:00 Rx 25 mg pantoprazole 40 mg tablet,delayed 40 mg PO DAILY GERD 04/22/22 05/30/23 History release (Protonix) albuterol sulfate 90 mcg/actuation 2 puff inhalation Q4H PRN 05/07/22 05/30/23 Rx aerosol inhaler shortness of breath or wheezing #8.5 grams Nebulizer machine #1 ea 05/08/23 Unknown Rx leflunomide 10 mg tablet 5 mg PO DAILY Arthritis 05/08/23 05/30/23 History fluticasone fur. 100 mcg-umeclid 1 inh inhalation Q24H lungs #60 ea 09/12/23 Unknown Rx 62.5 mcg-vilant 25 mcg inhalat.powder (Trelegy Ellipta) diltiazem HCl 180 mg 180 mg PO QDAY heart rate 11/18/23 Unknown History capsule,extended release 24 hr empagliflozin 10 mg tablet 10 mg PO QDAY DM 11/18/23 Unknown History (Jardiance) metolazone 2.5 mg tablet 2.5 mg PO Q OTHER DAY PRN swelling 11/18/23 Unknown History furosemide 40 mg tablet 40 mg PO BID Swelling #60 tabs 12/26/23 Unknown Rx hydrocodone-acetaminophen 5-325mg 1 tab PO Q8H PRN PRN pain 05/19/24 Unknown History 5mg-325mg potassium chloride 20 mEq 40 meq PO BID supplement 05/19/24 Unknown History tablet,extended release(part/cryst) fluticasone propionate 50 2 spray intranasal QDAY PRN 08/10/24 Unknown History mcg/actuation nasal Allergies spray,suspension (Flonase Allergy Relief) prednisone 5 mg tablet 2.5 mg PO Q OTHER DAY 08/10/24 Unknown History Allergy/AdvReac Type Severity Reaction Status Date / Time [id number] Reductase AdvReac Severe Myalgias Verified 09/27/24 14:48 Inhibitor ([id number]-Vpg-Ncb Reductase Inhibitor) adhesive AdvReac Rash if on Verified 09/27/24 14:48 for extended period of time Family History Father CVA (cerebral vascular accident) Mother CVA (cerebral vascular accident) Sister CAD (coronary artery disease) Atrial fibrillation Sister COPD (chronic obstructive pulmonary disease) Surgical History History of right heart catheterization S/P insertion of spinal cord stimulator Status post insertion of spinal cord stimulator History of left hip replacement H/O left wrist surgery History of back surgery History of rotator cuff surgery S/P foot surgery, right History of right hip replacement Social History household members: none housing: house pets and animals: Yes pets and animals: dog(s) Smoking Status: Former smoker Tobacco: How many years used: 36 how long ago did patient quit smoking: Patient quit in 2000 alcohol intake: current alcohol intake frequency: a few times a week Alcohol type: beer details: rare substance use type: does not use ROS ROS ED Review of Systems ROS Unobtainable: due to mental status and other Details: Patient is not a very good informant. Constitutional Constitutional ED: Denies chills, fever(s) or subjective Eyes Eyes: Denies blurry vision or change in vision ENT ENT ED: Denies rhinorrhea or sore throat Cardiovascular Cardiovascular: Reports chest pain; Denies palpitations or racing heartbeat Respiratory/Chest Respiratory/Chest: Reports dyspnea; Denies cough or sputum Gastrointestinal Gastrointestinal: Reports diarrhea, nausea, vomiting and other Details: Patient reports vomiting once yesterday and today and 1 loose diarrhea yesterday and today. Genitourinary Genitourinary ED: Reports other Details: Patient endorses decreased urine output Musculoskeletal Musculoskeletal: Reports myalgias Neurologic Neurologic: Reports headache(s) and weakness Hematologic/Lymphatic Hematologic/Lymphatic: Reports anemia and easy bruising EXAM Physical Exam Const Vital Signs: 09/27/24 14:40 09/27/24 14:48 09/27/24 15:03 Temperature 98.3 F Temperature Source Oral Pulse Rate 183 H Respiratory Rate 25 H Respiratory Effort Short of Breath Labored Respiratory Depth Shallow Respiratory Pattern Tachypnea Blood Pressure 162/123 H Blood Pressure Mean 136 Pulse Ox 98 98 Oxygen Delivery Method Non-Rebreather Nasal Cannula Oxygen Flow Rate (L/min) 9 4 09/27/24 16:40 Temperature Temperature Source Pulse Rate 180 H Respiratory Rate 16 Respiratory Effort Respiratory Depth Respiratory Pattern Blood Pressure 124/84 H Blood Pressure Mean 97 Pulse Ox 98 Oxygen Delivery Method Oxygen Flow Rate (L/min) Positive well nourished and well developed Constitutional Narrative: Patient is overweight with a BMI of 27. General Appearance ED: well developed and NAD; Negative for cyanotic or diaphoretic HEENT Reports dry mucous membranes HEENT Narrative: No obvious trauma. No clinical signs of basilar skull fracture. No septal deviation hematoma. Uvula is midline. No deviation with protrusion. Mouth ED: Yes dry mucous membranes Mouth: dry mucous membranes Eyes PERRL and EOMs intact bilaterally General Eye ED: Yes pale conjunctiva and scleral icterus Neck no lymphadenopathy, supple and no JVD Chest Wall inspection of chest normal and palpation of chest normal Resp No normal respiratory effort and No clear to auscultation bilaterally Resp Narrative: Bibasilar rales Cardio no murmurs Rhythm: abnormal rhythm irregularly irregular GI normal to inspection, nondistended, normoactive bowel sounds, non-tender, non-distended and no masses; Negative for hepatosplenomegaly Back/Spine no CVA tenderness Extremity normal to inspection General Extremety ED: Negative for edema General Extremity: Negative for edema Neuro oriented x3 and CN's II-XII intact bilaterally Sensorium / Orientation: Negative for alert Psych Mood & Affect: depressed Skin Skin Narrative: Question of pallor and jaundice. Skin turgor is poor. Sepsis Attestation Sepsis Alert: Yes Sepsis Attestation: Agree w/Sepsis Date exam was performed: 09/27/24 Time exam was performed: 16:22 Possible Source of Sepsis: Pulmonary Sepsis Organ Dysfunction Criteria Present: New/Unexplained change in mental status Fluid Resuscitation Fluid resuscitation indicated?: Yes Fluid Resuscitation ordered: 30 ml/kg fluid bolus ordered Amount of fluid ordered: 2,000 MDM MDM MDM Narrative Medical decision making narrative: With history of headache after fall Coumadin will obtain CT to rule out intracranial bleed i.e. subdural hematoma, epidural hematoma, traumatic subarachnoid hemorrhage, intraparenchymal contusion. PT/INR was obtained. Because she was on the ground for prolonged period CPK was obtained to evaluate for rhabdomyolysis. Concern patient is dehydrated and the fact that she is diabetic we will obtain comprehensive metabolic panel assess renal function, CO2 anion gap, glucose as well as electrolytes. CBC to assess white count differential. Since she looks pale also to assess for anemia. Biswas was placed for I's and O's. She did receive a fluid bolus of 1 L. I am aware that she has history of heart failure however feel that part of her rapid heart rate may be due to hypovolemia. History & Record Review Additional record(s) reviewed:: Prior inpatient record (Admitted April for pneumonia. Dr. Mccarty's discharge summary was reviewed.), Prior outpatient record (Pulmonary visit note by Noemi Toussaint was reviewed for chronic obstructive pulmonary disease with asthma. There were also multiple home visits.) and Prior labs Lab Data Attestation: I reviewed the patient's lab results. Lab results narrative: White count is elevated 19.3 thousand with shift. There is no bandemia. H&H is normal. Patient is subtherapeutic with respect to her Coumadin. INR is 1.8. Electrolyte panel surprisingly is unremarkable. BUN and creatinine are slightly elevated at 31 and 1.12 with an estimated GFR 51, which is at her baseline. Glucose is slightly elevated 135 with a normal CO2 to an anion gap. Troponin is slightly elevated 27. Repeat is pending. Labs: Laboratory Results - last 24 hr 09/27/24 14:20 WBC 19.3 H RBC 4.07 L Hgb 12.3 Hct 38.5 MCV 94.6 MCH 30.2 MCHC 31.9 L RDW Std Deviation 45.3 H RDW Coeff of Nicki 13.2 Plt Count 260 MPV 11.2 Immature Gran % (Auto) 0.400 Neut % (Auto) 91.8 H Lymph % (Auto) 5.1 L [place] % (Auto) 2.1 Eos % (Auto) 0.1 Baso % (Auto) 0.5 Absolute Neuts (auto) 17.7 H Absolute Lymphs (auto) 0.98 Nucleated RBC % 0 PT 21.0 H INR 1.8 Sodium 139 Potassium 3.5 Chloride Direct 99 Carbon Dioxide 24.6 Anion Gap 15 BUN 31 H Creatinine 1.12 Estim Creat Clear Calc 36.26 L Est GFR (MDRD) Non-Af 51 L BUN/Creatinine Ratio 28.0 H Glucose 135 H Calcium 9.8 Total Bilirubin 1.29 AST 121 H ALT 74 H Alkaline Phosphatase 68 Troponin T High Sens 27 H Total Protein 7.1 Albumin 3.7 Globulin 3.4 Albumin/Globulin Ratio 1.1 ABG Data Attestation: I personally reviewed and interpreted this ABG as follows: Interpretation: ABG reveals alkalemia. Bicarb is low at 27.4. Patient does have an increased AA gradient. P O2 is 52 on 4 L with a saturation of 88%. Nurse informing that her sat was 92% on the 4 L. ABG results: ABG 09/27/24 15:55 Specimen Type ART Sample Site R Radial pH 7.47 H Bicarbonate Actual 27.4 H Total CO2 29 Base Excess 4 H O2 Saturation 88 L O2 % 4.0 ABG pCO2 37.9 ABG pO2 52 L O2 Delivery Device Not entered Vent Mode Not entered Radiography Chest X-Ray - ED: 1 View and Read by ED Physician (Patient has right lower lobe infiltrate. There appears to be scarring left lower lobe. There is no obvious effusion. There is no evidence of CHF. Cardiac silhouette noted. Osseous structures reveal chronic changes.) Diagnostic Testing: Clinical Impression(s) from Imaging Studies Chest X-Ray 09/27/24 15:30 IMPRESSION: Patchy right lower lobe infiltrate with mild increased markings at the left lung base. Reading Location: [id number] Brain CT 09/27/24 15:31 IMPRESSION: No acute abnormality is seen. Reading Location: [id number] CT of the head reveals no evidence of fracture, epidural hematoma, subarachnoid hemorrhage, traumatic contusion. There is evidence of air-fluid level left maxillary sinus. Rhythm Strip Rhythm Strip: A-fib Rate: 183 EKG Initial EKG: Attestation: I personally reviewed and interpreted this EKG as follows: Interpretation: Atrial Fibrillation (Rate is 169. Cures duration 78 ms. QS duration 74 ms. [place] is to the right. There is nonseptic changes most likely represents the rapid heart rate.) Management Discussion w/another healthcare provider: Hospitalist (Case was discussed with hospitalist. Patient will be admitted to ICU.) Treatment and Re-Evaluation :: Patient has received 1.5 L of normal saline which is approximately 30 cc/kg. She is still tachycardic. 10 mg of diltiazem was ordered. She will receive Rocephin and azithromycin for her community-acquired right lower lobe pneumonia. Heart rate is still elevated as of 1709. Patient will receive additional dose of diltiazem. She has received her 30 cc/kg bolus. She is more confused. Patient has infectious encephalopathy. Will contact hospitalist for admission in all likelihood to the ICU for sepsis. Critical Care Time Critical Care Time: Yes Critical care time (excluding procedures): 30-74 minutes (33), Including time spent: (History, physical, documentation, review of prior records,), Discussing w/Patient &/or Family/Inventory Management Specialist (Family was spoken to.), Discussing w/Consultants and Arranging Admission or Transfer Discharge Plan Dx/Rx/DC Orders Clinical Impression: Sepsis, Right lower lobe pneumonia, Chronic atrial fibrillation with RVR, Anticoagulant long-term use, Encephalopathy due to infection, Acute and chronic respiratory failure with hypoxia, Elevated troponin level, Elevated blood pressure reading with diagnosis of hypertension Disposition Disposition: Acute Care Hospital [facility]
--- NOTE | 2024-09-27 15:30 | RAD_ITS ---
PROCEDURE: CHEST 1 VIEW (PORTABLE) REASON FOR EXAM: Bibasilar rales. TECHNIQUE: Frontal view of the chest. COMPARISON: Comparison is made with prior study dated May 19, 2024. FINDINGS: EKG electrodes are seen. Elevation of the right hemidiaphragm with patchy infiltrate in the right lower lobe. Mild increased markings at the left lung base. Bilateral shoulder replacements. Electrodes from a spinal cord stimulator device are seen. RAD/Chest 1 View (Portable) IMPRESSION: Patchy right lower lobe infiltrate with mild increased markings at the left presley g base. Reading Location: [id number]
--- NOTE | 2024-09-27 15:31 | CT_ITS ---
EXAM: BRAIN/HEAD WITHOUT CONTRAST CLINICAL HISTORY: Head injury due to a fall. Patient is on Coumadin. COMPARISON: None TECHNIQUE: Multiple axial tomographic images were obtained without intravenous contrast administration. Coronal and sagittal reconstruction was obtained as well. FINDINGS: Mild degree of cerebral atrophy. No acute abnormality is seen. There is good kaplan matter white matter differentiation. No evidence of hydrocephalus. CT/Brain/Head without Contrast IMPRESSION: No acute abnormality is seen. Reading Location: [id number]
[2024-09-27 15:35] LABS: International Normalized Ratio 1.8
[2024-09-27 15:50] LABS: Troponin T High Sensitivity 27 ng/L (<=14)
[2024-09-27 15:59] LABS: Base Excess 4 mmol/L (-2 to +2); Bicarbonate 27.4 mmol/L (22-26); Blood Gas Specimen Type ART; Mode Not entered; O2 Delivery Device Not entered; PO2 52 mmHG (75-100); SITE R Radial; SO2 88 % (95-99); Total Carbon Dioxide 29 mmol/L; pCO2 37.9 mmHg (35-45); pH 7.47 (7.35-7.45)
[2024-09-27 16:02] LABS: ALB/GLOB Ratio 1.1 RATIO (0.9-2.4); AST(SGOT) 121 U/L (<=31); Alanine Aminotransfer ALT/SGPT 74 U/L (<=34); Albumin, Serum 3.7 g/dL (3.4-4.8); Alkaline Phosphatase 68 U/L (35-104); Anion Gap 15 (5-15); BUN 31 mg/dL (4-19); Calcium 9.8 mg/dL (7.6-11.0); Carbon Dioxide 24.6 mmol/L (22.0-29.0); Chloride 99 mmol/L (96-108); Creatinine, Serum 1.12 mg/dL (0.70-1.20); EST Glomerular Filtration Rate 51 (>60); Estimated Creatinine Clearance 36.26 ml/min (50-250); Globulin 3.4 g/dL (2.2-4.2); Glucose 135 mg/dL (70-99); Potassium 3.5 mmol/L (3.3-5.1); Protein, Total 7.1 g/dL (5.9-8.4); Sodium Level 139 mmol/L (133-145); Total Bilirubin 1.29 mg/dL (0.00-1.30)
[2024-09-27 16:05] LABS: Absolute Lymphocyte Count 0.98 X10^3/uL (0.83-4.51); Absolute Neutrophil Count 17.7 X10^3/uL (2.0-7.7); Basophil% 0.5 % (0-1); Eosinophil# 0.01 X10^3/uL; Eosinophils% 0.1 % (0-5); Hematocrit 38.5 % (37-47); Hemoglobin 12.3 g/dL (12.0-15.0); Lymphocyte # 0.98 X10^3/ul (0.83-4.51); Lymphocyte % 5.1 % (19-41); Mean Corp Hgb Conc 31.9 g/dL (32-36); Mean Corpuscular Hgb 30.2 pg (27.0-32.0); Mean Corpuscular Volume 94.6 fL (81-99); Mean Platelet Vol. 11.2 fl (6.2-12.0); Monocyte% 2.1 % (0-10); NRBC Flagged by Analyzer 0 % (0-5); Neutrophil # 17.71 X10^3/uL (2.7-7.7); Neutrophil % 91.8 % (47-70); Platelet Count 260 K/mm3 (150-450); RBC Distribution Width CV 13.2 % (11.6-14.6); RBC Distribution Width SD 45.3 fl (35.1-43.9); Red Blood Count 4.07 M/mm3 (4.2-5.4); White Blood Count 19.3 K/mm3 (4.4-11.0)
[2024-09-27] MEDS: dilTIAZem 25 MG/5 ML Vial 10 MG IV BOLUS ×2 (16:23→17:35)
--- NOTE | 2024-09-27 17:29 | PCM.HP.STD ---
HPI - General General Date of Admission: 09/27/24 Date of Service: 09/27/24 Chief Complaint: Fatigue and weakness HPI Narrative EMILE KITCHEN, is a 79 F who presented to [facility] ED on 09/27/2024 with worsening fatigue and weakness. Patient lives at home alone. Daughter notes that patient has fairly good functional status at baseline, is able to complete all ADLs for herself without issue. She saw the patient 2 days ago and noted that patient had some upper respiratory symptoms and appeared weaker than her normal. She then went to the patient's house this morning and found her laying down on the ground in the house. Patient was alert but appeared very fatigued. EMS brought the patient in for further evaluation. In the ED she was found to have significant A-fib with RVR with rate to the 170s 180s. Does have known history of A-fib with RVR. Was mildly hypertensive to the 140s systolic. She was also requiring 6 L nasal cannula to maintain oxygen saturations in the low 90s. She appeared very dry exam and ED physician gave her 2 L of IV fluids. Initial infectious workup was negative. Labs notable for WBC count 19, lactate 2.6. Chest x-ray concerning for left lower lobe pneumonia. Given concern for sepsis secondary to pneumonia, hospitalist was contacted for admission. I saw the patient at bedside in the ED, daughter was present. Patient was mildly fatigued appearing and had mild increased work of breathing noted on 6 L nasal cannula. She was maintaining appropriate oxygen saturations on this. She was alert and oriented to person and place but not to time. She otherwise could not provide much history from the past few days. Daughter notes that patient has a history of recurrent pneumonia. Patient denied any current fevers or chills. Denied any pain or discomfort. About an hour after I saw the patient, nursing staff notified me that patient appeared to be developing worsening respiratory status. Saw the patient at bedside and patient had audible crackles and increased work of breathing. She was placed on a Venturi and an ABG was obtained that showed pH 7.4 but pO2 low at 52. She was then placed on BiPAP. However, she did not tolerate BiPAP well due to significant anxiety and continued to have increased work of breathing noted. So, decision was made to intubate the patient at that time. ED physician Dr. Porter intubated the patient successfully and she was then placed on mechanical ventilation. Her blood pressure did drop postintubation and a central line was placed and patient was started on Levophed. Patient was also given a dose of IV Lopressor with improvement in the heart rate to the 130s, and she was then started on a Cardizem drip at that time. Will be admitted to the ICU for further management. [facility] Medical History Hyperlipidemia CHF (congestive heart failure) Paroxysmal atrial fibrillation Chronic hypoxemic respiratory failure Anemia Spinal cord stimulator status skilled nursing current use of amiodarone SOB (shortness of breath) on exertion Pulmonary hypertension Persistent atrial fibrillation Anticoagulant long-term use Edema Lumbosacral radiculopathy at L5 Asthma-chronic obstructive pulmonary disease overlap syndrome GI bleed 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 classification GERD (gastroesophageal reflux disease) Pneumonia Bronchitis Abnormal pulmonary function test Essential hypertension Small bowel obstruction TIA (transient ischemic attack) Osteoarthritis PUD (peptic ulcer disease) Nonrheumatic aortic (valve) insufficiency Nonrheumatic tricuspid valve regurgitation Carotid bruit Home Medications ?Medication ?Instructions ?Recorded ?Last Taken ?Type zolpidem 10 mg tablet 10 mg PO QHS PRN sleep 03/13/18 05/29/23 History gabapentin 300 mg capsule 300 mg PO BID pain 09/15/20 09/26/24 History acetaminophen 500 mg tablet 1,000 mg PO DAILY PRN PRN Pain 09/25/20 09/26/24 History 1-10 Or Fever coenzyme Q10 100 mg capsule 100 mg PO DAILY SUPPLEMENT 09/25/20 09/25/20 History levothyroxine 25 mcg tablet 25 mcg PO DAILY THYROID 09/25/20 09/26/24 History multivitamin with minerals 1 tab PO DAILY supplement 09/25/20 09/26/24 History warfarin 1 mg tablet 1 mg PO DAILY Blood thinner 10/19/21 09/26/24 History Held on 05/22/24. Instructions: Resume on 05/24/24. atenolol 25 mg tablet 25 mg PO BID HEART #60 tabs 10/22/21 05/30/23 09:00 Rx 25 mg pantoprazole 40 mg tablet,delayed 40 mg PO DAILY GERD 04/22/22 09/26/24 History release (Protonix) Nebulizer machine #1 ea 05/08/23 Unknown Rx leflunomide 10 mg tablet 5 mg PO DAILY Arthritis 05/08/23 09/26/24 History fluticasone fur. 100 mcg-umeclid 1 inh inhalation Q24H lungs #60 ea 09/12/23 09/26/24 Rx 62.5 mcg-vilant 25 mcg inhalat.powder (Trelegy Ellipta) diltiazem HCl 180 mg 180 mg PO QDAY heart rate 11/18/23 09/26/24 History capsule,extended release 24 hr empagliflozin 10 mg tablet 10 mg PO QDAY DM 11/18/23 09/26/24 History (Jardiance) metolazone 2.5 mg tablet 2.5 mg PO Q OTHER DAY PRN swelling 11/18/23 Unknown History furosemide 40 mg tablet 40 mg PO BID Swelling #60 tabs 12/26/23 09/26/24 Rx hydrocodone-acetaminophen 5-325mg 1 tab PO Q8H PRN PRN pain 05/19/24 09/26/24 History 5mg-325mg potassium chloride 20 mEq 20 meq PO BID supplement 05/19/24 09/26/24 History tablet,extended release(part/cryst) fluticasone propionate 50 2 spray intranasal QDAY PRN 08/10/24 Unknown History mcg/actuation nasal Allergies spray,suspension (Flonase Allergy Relief) Allergy/AdvReac Type Severity Reaction Status Date / Time Tffurhe-XKF-WlB Reductase AdvReac Severe Myalgias Verified 09/27/24 14:48 Inhibitor (Vzhwxed-Rmy-Und Reductase Inhibitor) adhesive AdvReac Rash if on Verified 09/27/24 14:48 for extended period of time Family History Father CVA (cerebral vascular accident) Mother CVA (cerebral vascular accident) Sister CAD (coronary artery disease) Atrial fibrillation Sister COPD (chronic obstructive pulmonary disease) Surgical History History of right heart catheterization S/P insertion of spinal cord stimulator Status post insertion of spinal cord stimulator History of left hip replacement H/O left wrist surgery History of back surgery History of rotator cuff surgery S/P foot surgery, right History of right hip replacement Social History household members: none housing: house pets and animals: Yes pets and animals: dog(s) Smoking Status: Former smoker Tobacco: How many years used: 36 how long ago did patient quit smoking: Patient quit in 2000 alcohol intake: current alcohol intake frequency: a few times a week Alcohol type: beer details: rare substance use type: does not use ROS Constitutional Constitutional: Reports fatigue and weakness; Denies chills or fever(s) Eyes Eyes: Denies change in vision Cardiovascular Cardiovascular: Denies chest pain Respiratory/Chest Respiratory/Chest: Reports cough, shortness of breath at rest and shortness of breath with exertion; Denies productive cough Gastrointestinal Gastrointestinal: Denies abdominal pain Musculoskeletal Musculoskeletal: Denies arthralgias or myalgias Vital Signs Vital Signs Vital Signs: 09/27/24 14:40 09/27/24 14:48 09/27/24 15:03 Temperature 98.3 F Temperature Source Oral Pulse Rate 183 H Respiratory Rate 25 H Respiratory Effort Short of Breath Labored Respiratory Depth Shallow Respiratory Pattern Tachypnea Blood Pressure 162/123 H Blood Pressure Mean 136 Pulse Ox 98 98 Oxygen Delivery Method Non-Rebreather Nasal Cannula Oxygen Flow Rate (L/min) 9 4 09/27/24 16:40 Temperature Temperature Source Pulse Rate 180 H Respiratory Rate 16 Respiratory Effort Respiratory Depth Respiratory Pattern Blood Pressure 124/84 H Blood Pressure Mean 97 Pulse Ox 98 Oxygen Delivery Method Oxygen Flow Rate (L/min) Weight Weight: 64.8 kg Body Mass Index (BMI) 26.9 Physical Exam Const alert and average body habitus Constitutional Narrative: Elderly female, moderately fatigued appearing, mildly uncomfortable appearing due to some increased work of breathing, otherwise alert and oriented x [address] and answering some questions with short appropriate responses. General Appearance: cooperative HEENT normocephalic, head/scalp atraumatic, hearing grossly normal bilaterally and nasal mucous membranes and turbinates normal HEENT Narrative: Dry mucous membranes. Eyes PERRL, EOMs intact bilaterally and conjunctivae normal Neck full ROM Chest inspection of chest normal Resp Resp Narrative: Mild increased work of breathing noted on 6 L nasal cannula at rest. Crackles noted bilaterally and lung bases with otherwise mildly diminished breath sounds bilaterally throughout. No wheezing noted. Cardio no murmurs and peripheral pulses 2+ throughout Cardio Narrative: A-fib with RVR. GI normal to inspection, nondistended, normoactive bowel sounds, soft to palpation, non-tender and non-distended Back/Spine normal ROM Extremity normal to inspection, full ROM and no pedal edema Skin no rashes or lesions noted Neuro moves all extremities and no focal motor deficits Psych Mood & Affect: anxious Results Lab / Micro Data 09/27/24 14:20 09/27/24 14:20 Labs: Laboratory Results - last 24 hr 09/27/24 14:20: WBC 19.3 H, RBC 4.07 L, Hgb 12.3, Hct 38.5, MCV 94.6, MCH 30.2, MCHC 31.9 L, RDW Std Deviation 45.3 H, RDW Coeff of Nicki 13.2, Plt Count 260, MPV 11.2, Immature Gran % (Auto) 0.400, Neut % (Auto) 91.8 H, Lymph % (Auto) 5.1 L, [place] % (Auto) 2.1, Eos % (Auto) 0.1, Baso % (Auto) 0.5, Absolute Neuts (auto) 17.7 H, Absolute Lymphs (auto) 0.98, Nucleated RBC % 0, PT 21.0 H, INR 1.8, Sodium 139, Potassium 3.5, Chloride Direct 99, Carbon Dioxide 24.6, Anion Gap 15, BUN 31 H, Creatinine 1.12, Estim Creat Clear Calc 36.26 L, Est GFR (MDRD) Non-Af 51 L, BUN/Creatinine Ratio 28.0 H, Glucose 135 H, Calcium 9.8, Total Bilirubin 1.29, AST 121 H, ALT 74 H, Alkaline Phosphatase 68, Troponin T High Sens 27 H, Total Protein 7.1, Albumin 3.7, Globulin 3.4, Albumin/Globulin Ratio 1.1 ABG Data ABG results: ABG 09/27/24 15:55 Specimen Type ART Sample Site R Radial pH 7.47 H Bicarbonate Actual 27.4 H Total CO2 29 Base Excess 4 H O2 Saturation 88 L O2 % 4.0 ABG pCO2 37.9 ABG pO2 52 L O2 Delivery Device Not entered Vent Mode Not entered Rhythm Strip Rhythm Strip: A-fib Rate: 183 Imaging Radiology Impression Chest X-Ray 09/27/24 15:30 IMPRESSION: Patchy right lower lobe infiltrate with mild increased markings at the left lung base. Reading Location: [id number] Brain CT 09/27/24 15:31 IMPRESSION: No acute abnormality is seen. Reading Location: [id number] Assessment & Plan Assessment/Plan (1) Acute and chronic respiratory failure with hypoxia: (2) Chronic atrial fibrillation with RVR: (3) Sepsis: (4) Right lower lobe pneumonia: PLAN: Plan Patient is a 79-year-old female who presented [facility] ED on 09/27/2024 with worsening fatigue and weakness. 1. Acute hypoxic respiratory failure and septic shock suspected secondary to community-acquired pneumonia and acute HFpEF; history of COPD on home 4 L O2 at night ? Admit under inpatient status to the ICU. Cabinet Abrasive Sandblaster consulted. Chest x-ray on admit with concern for left lower lobe pneumonia with small left pleural effusion and some degree of vascular congestion. Appeared dry on exam and was given IV fluids but unfortunately had worsening respiratory status in the ED. ABG on Venturi mask with pO2 around 50 and patient with significant increased work of breathing. Was ultimately intubated in the ED. Infectious workup negative to this point. Had blood pressure drop to the 70s over 40s postintubation requiring initiation of Levophed. Will treat with IV ceftriaxone and azithromycin for now. Appreciate cushion maker recommendations regarding ventilator management. Wean off Levophed as able. Notably follows with cardiology for HFpEF, see Dr. Schulz note from 08/10/24 for further details. In short, patient has history of HFpEF with moderate pulmonary hypertension. Will give 2 more doses of IV Lasix and monitor BMP and urine output. Can continue to spot diuresis as able after that. 2. Permanent A-fib with RVR on warfarin with subtherapeutic INR ? Follows with outpatient cardiology as noted above. Had A-fib with RVR up to the 180s in the ED. Only mild improvement with IV fluids. Did have more improvement with doses of IV Lopressor and initiation of Cardizem drip. Will continue Cardizem drip for now. Continue home warfarin for anticoagulation. Notably INR 1.8 on admit. Trend daily INR and continue home warfarin. Okay to continue home atenolol and diltiazem for now as well. Chronic medical conditions: ? Hypothyroidism: Continue home Synthroid. ? GERD: Continue home PPI. ? RA: Continue home leflunomide. ? Chronic pain: Treating with IV medications as needed for now. DVT prophylaxis: Not indicated, on warfarin CODE STATUS: Full code, verified Expected disposition: TBD Total clinical time spent by myself addressing the patient's medical issues, reviewing all the data, and collaborating with patient's care team: 75 minutes. Charges/Coding Visit Charges Inpatient E&M: 27202 Init Hosp L3
[2024-09-27 17:35] LABS: Lactic Acid 2.6 mmol/L (0.0-2.0)
[2024-09-27] MEDS: Ceftriaxone 2 GM in 0.9% Normal Saline (50mL MB+) 50 ML IV (17:38)
[2024-09-27 17:50] LABS: TROPONIN VARIANCE 2 HR 6; Troponin T High Sens 2 HR 33 ng/L (<=14)
[2024-09-27] MEDS: Azithromycin 500 MG in 0.9% Normal Saline (250mL Bag) 250 ML 255 MG IV (18:36)
[2024-09-27] MEDS: Metoprolol Tartrate 5 MG/5 ML Vial IV (18:41)
[2024-09-27] MEDS: Diltiazem 125 MG in Dextrose 5%-Water (100mL Bag) 100 ML IV (18:44)
[2024-09-27 18:57] LABS: Allen Test Positive; Base Excess 0 mmol/L (-2 to +2); Bicarbonate 25.2 mmol/L (22-26); Blood Gas Specimen Type ART; Mode Not entered; O2 Delivery Device Venti Mask; PO2 48 mmHG (75-100); SITE R Radial; SO2 83 % (95-99); Total Carbon Dioxide 27 mmol/L; pCO2 42.5 mmHg (35-45); pH 7.38 (7.35-7.45)
[2024-09-27] MEDS: Furosemide 40 MG/4 ML Vial IV (19:12)
--- NOTE | 2024-09-27 19:19 | RAD_ITS ---
PROCEDURE: CHEST 1 VIEW (PORTABLE) REASON FOR EXAM: Status post intubation TECHNIQUE: Frontal view of the chest. COMPARISON: Chest radiograph obtained earlier today. FINDINGS: Interval placement of an endotracheal tube with its distal tip 1.1 cm above the nas. Nasogastric tube terminates within the stomach. The heart size is normal. Patchy bibasilar airspace opacities. No pneumothorax. Bilateral shoulder arthroplasties. RAD/Chest 1 View (Portable) IMPRESSION: The distal tip of the endotracheal tube is 1.1 cm above the nas. Nasogastri c tube terminates within the stomach. Reading Location: [facility]
[2024-09-27] MEDS: Etomidate 20 MG/10 ML Vial 19 MG IV (19:26)
[2024-09-27] MEDS: Rocuronium Bromide 50 MG/5 ML Vial 48 MG IV (19:27)
[2024-09-27] MEDS: fentaNYL 100 MCG/2 ML Ampul 50 MCG IV (19:40)
[2024-09-27] MEDS: fentaNYL drip 100 ML 5 MCG CONT INF (19:46)
[2024-09-27] MEDS: Norepinephrine Bit/0.9% NaCl 8 MG/250 ML IV.SOLN 9.4 MG CONT INF (20:02)
[2024-09-27 20:19] LABS: Mucous, Urine 0 SEEN /hpf (<or=2+); Squamous Epithelial Cells - UA 0 SEEN /hpf (5-10); White Blood Cells 0 SEEN /hpf (0-5)
[2024-09-27 20:40] LABS: Color, Urine Yellow (Yellow); Glucose, Dipstick 250 mg/dl (Normal); Ketone-Dipstick Negative (Negative); Leukocyte Esterase-Dipstick Negative /ul (Negative); Nitrite-Dipstick Negative (Negative); Occult Blood-Urine 250 /ul (Negative); Protein-Dipstick 500 mg/dl (Negative); Urine Bilirubin Dipstick Negative (Negative); Urine Clarity Clear (Clear); Urine Urobilinogen 1 mg/dl (Normal)
[2024-09-27 20:54] LABS: Bacteria 2+ /hpf (None Seen); Red Blood Cells-Urine 0-5 SEEN /hpf (0-5)
[2024-09-27 21:22] LABS: CPK Total, Creatine Kinase 588 U/L (24-195)
[2024-09-27] MEDS: Chlorhexidine 15 ML PO (22:00)
[2024-09-27] MEDS: Gabapentin 300 MG Capsule PO (22:25)
[2024-09-27] MEDS: 0.9% Saline Lock 10 ML Syringe IV (22:25)
[2024-09-27] MEDS: dilTIAZem CD 180 MG Capsule PO (22:27)
[2024-09-27] MEDS: Atenolol 25 MG Tablet PO (22:28)
[2024-09-27] MEDS: Propofol 10MG/Ml 1,000 MG/100 ML Bottle 3.9 MG CONT INF (22:41)
[2024-09-27 22:54] LABS: Base Excess -3 mmol/L (-2 to +2); Bicarbonate 20.5 mmol/L (22-26); Blood Gas Specimen Type ART; Mode AC; O2 Delivery Device Adult Vent; PEEP 5; PO2 118 mmHG (75-100); RR 16; SITE L Radial; SO2 99 % (95-99); Total Carbon Dioxide 21 mmol/L; pCO2 28.8 mmHg (35-45); pH 7.46 (7.35-7.45)
[2024-09-28] VITALS (32 sets, daily range): BP systolic 92–121; BP diastolic 53–84; PULSE 81–151; RESP 16–23; TEMP 36.1–38.9; O2SAT 92–100; BMI 25.6
[2024-09-28] MEDS: CHLORHEXIDINE GLUC 2% CLOTH 1 EACH TOWELETTE TOPICAL (00:12)
[2024-09-28] MEDS: Acetaminophen 650 MG/20 ML UDC GT (00:16)
[2024-09-28 04:40] LABS: Hematocrit 35.8 % (37-47); Hemoglobin 12.2 g/dL (12.0-15.0); Mean Corp Hgb Conc 34.1 g/dL (32-36); Mean Corpuscular Hgb 30.7 pg (27.0-32.0); Mean Corpuscular Volume 89.9 fL (81-99); Mean Platelet Vol. 10.9 fl (6.2-12.0); Platelet Count 185 K/mm3 (150-450); RBC Distribution Width CV 13.1 % (11.6-14.6); RBC Distribution Width SD 43.1 fl (35.1-43.9); Red Blood Count 3.98 M/mm3 (4.2-5.4); White Blood Count 13.3 K/mm3 (4.4-11.0)
[2024-09-28 05:17] LABS: Anion Gap 16 (5-15); BUN 43 mg/dL (4-19); BUN/Creat Ratio 30.4 RATIO (10-20); Calcium,Total 9.2 mg/dL (7.6-11.0); Carbon Dioxide 23.1 mmol/L (21.0-32.0); Chloride 99 mmol/L (98-108); Creatinine, Serum 1.41 mg/dL (0.70-1.20); EST Glomerular Filtration Rate 38 (>60); Glucose 163 mg/dL (70-99); Sodium Level 138 mmol/L (133-145)
[2024-09-28] MEDS: Diltiazem 125 MG in Dextrose 5%-Water (100mL Bag) 100 ML 15 MG IV ×3 (05:21→20:50)
[2024-09-28] MEDS: Levothyroxine 25 MCG TABLET PO (05:24)
[2024-09-28] MEDS: 0.9% Saline Lock 10 ML Syringe IV (05:24)
[2024-09-28 05:32] LABS: Triglycerides 115 mg/dL
[2024-09-28 05:39] LABS: TROPONIN VARIANCE 4 HR 47; Troponin T High Sens 4 HR 74 ng/L (<=14)
[2024-09-28 05:53] LABS: CPK Total, Creatine Kinase 919 U/L (24-195)
--- NOTE | 2024-09-28 06:46 | RAD_ITS ---
PROCEDURE: CHEST 1 VIEW (PORTABLE) REASON FOR EXAM: OG tube placement. TECHNIQUE: Frontal view of the chest. COMPARISON: Yesterday FINDINGS: Endotracheal tube is present with tip in stable position. Enteric tube is present with tip below the hemidiaphragm but cut off from the film. Right subclavian line is present. Dorsal column stimulator is present. The cardiac silhouette is stable in size. Bibasilar infiltrates remain, [id number]-left but improved since prior examination. No pneumothorax. Status post bilateral shoulder replacement. RAD/Chest 1 View (Portable) IMPRESSION: Improving bibasilar infiltrates. Follow-up until resolution. Enteric tube noted with tip below the diaphragm but cut off from the film. Reading Location: [facility]
[2024-09-28] MEDS: Ipratropium/Albuterol Sulfate 3 ML AMPUL.NEB INHALATION ×3 (06:49→19:00)
[2024-09-28] MEDS: Budesonide Respules 0.5 MG/2 ML AMPUL.NEB. INHALATION ×2 (06:49→19:01)
--- NOTE | 2024-09-28 07:37 | EX.PCM.CONCC ---
Assessment & Plan Assessment/Plan (1) Acute and chronic respiratory failure with hypoxia: PLAN: Plan RECOMMENDATIONS: 1. Continue assist-control mode of mechanical ventilation. Wean FiO2 and PEEP to maintain saturations at or above 90%. 2. Continue empiric antimicrobials. 3. Continue current sedation regimen. 4. Wean Levophed to maintain a mean arterial pressure at or above 65 mmHg. 5. Continue scheduled bronchodilators. 6. Electrolyte repletion as needed. 7. Continue appropriate ICU prophylaxis. 8. Plan for daily paired spontaneous awakening and breathing trials beginning tomorrow. 9. Okay to initiate tube feeding for nutritional support. 10. Check TSH, BNP and procalcitonin. IMPRESSIONS: 1. Acute on chronic hypoxemic respiratory failure Most likely multifactorial in etiology with asthma/COPD overlap exacerbation related to pneumonia coupled with increased oxygen demand in the setting of atrial fibrillation with RVR. The patient was subsequently intubated as a consequence of the aforementioned. She will be continued on empiric antibiotics along with scheduled bronchodilators. Plan to continue to wean FiO2 and PEEP as tolerated to maintain saturations at or above 90%. I would hold off on diuresing her further given the interval increase in creatinine noted overnight. Nutritional support via tube feeding will be initiated today. Plan to initiate spontaneous awakening and breathing trials beginning tomorrow. 2. Septic shock Clinical concern for underlying pneumonia as precipitating etiology. Plan to continue Levophed to maintain a mean arterial pressure at or above 65 mmHg. Antimicrobials will be continued as ordered. 3. Atrial fibrillation with RVR Continue Cardizem as ordered. Resume Coumadin once medically feasible. In the interim, continue Lovenox. 4. History of pulmonary hypertension/history of rheumatoid arthritis/prior tobacco dependency/hypothyroidism Complicates care, management, recovery and prognosis. Continue home medications as indicated. Okay to initiate tube feeding today from my perspective. TIME: 38 minutes of critical care time, independent of procedures, was spent addressing the patient's acute on chronic hypoxemic respiratory failure, septic shock, atrial fibrillation with RVR, review of all data and collaboration with the care team. HPI Consult Data Date of Consult: 09/28/24 HPI Narrative Reason for Consultation: Respiratory failure HPI Narrative: The patient is a 79-year-old female, with a history as outlined below, who presented to the emergency department via EMS on September 27 with generalized weakness and fatigue. History pertinent to the patient's hospitalization was obtained primarily via chart review, as the patient is currently intubated and mechanically ventilated. The patient has a known history of atrial fibrillation and is currently followed by Dr. Schulz of cardiology. In addition, she also has a history of pulmonary hypertension she underwent a right heart catheterization at the [facility] on July 01, 2024. That showed combined pre and postcapillary pulmonary hypertension with reduced cardiac index she had a negative nitrous oxide response her elevated pulmonary artery wedge pressure with marked V waves was indicative of significant impaired left atrial filling. She had 2+ MR noted on her echocardiogram and left atrium was dilated. The patient is currently followed in the pulmonary medicine clinic as well due to a history of asthma/COPD overlap syndrome, for which she is on a stable inhaler regimen including Trelegy. On presentation to the emergency department, the patient was initially documented to be afebrile but was notably tachycardic and tachypneic. She was confirmed to be in atrial fibrillation with RVR. Laboratory evaluation was notable for a white blood cell count of 19,000. Coagulation profile was notable for an INR of 1.8. Initial ABG demonstrated a pH of 7.47 with a pCO2 of 38 and pO2 of 52. Chemistry profile was notable for a lactate of 2.6. Head CT was completed and demonstrated no acute intracranial abnormality. Chest imaging was concerning for patchy bibasilar airspace disease. Blood cultures were collected. COVID, influenza and RSV PCR's were negative. In the emergency department, noninvasive positive pressure ventilatory support was attempted. However, the patient did not tolerate the aforementioned intervention and was subsequently intubated. A subclavian triple-lumen catheter was also placed. The patient was initiated on antimicrobials and ultimately admitted to the medical intensive care unit for further management. 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 current use of amiodarone SOB (shortness of breath) on exertion Pulmonary hypertension Persistent atrial fibrillation Anticoagulant long-term use Edema Lumbosacral radiculopathy at L5 Asthma-chronic obstructive pulmonary disease overlap syndrome GI bleed 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 classification GERD (gastroesophageal reflux disease) Pneumonia Bronchitis Abnormal pulmonary function test Essential hypertension Small bowel obstruction TIA (transient ischemic attack) Osteoarthritis PUD (peptic ulcer disease) Nonrheumatic aortic (valve) insufficiency Nonrheumatic tricuspid valve regurgitation Carotid bruit Home Medications ?Medication ?Instructions ?Recorded ?Last Taken ?Type zolpidem 10 mg tablet 10 mg PO QHS PRN sleep 03/13/18 05/29/23 History gabapentin 300 mg capsule 300 mg PO BID pain 09/15/20 09/26/24 History acetaminophen 500 mg tablet 1,000 mg PO DAILY PRN PRN Pain 09/25/20 09/26/24 History 1-10 Or Fever coenzyme Q10 100 mg capsule 100 mg PO DAILY SUPPLEMENT 09/25/20 09/25/20 History levothyroxine 25 mcg tablet 25 mcg PO DAILY THYROID 09/25/20 09/26/24 History multivitamin with minerals 1 tab PO DAILY supplement 09/25/20 09/26/24 History warfarin 1 mg tablet 1 mg PO DAILY Blood thinner 10/19/21 09/26/24 History Held on 05/22/24. Instructions: Resume on 05/24/24. atenolol 25 mg tablet 25 mg PO BID HEART #60 tabs 10/22/21 05/30/23 09:00 Rx 25 mg pantoprazole 40 mg tablet,delayed 40 mg PO DAILY GERD 04/22/22 09/26/24 History release (Protonix) Nebulizer machine #1 ea 05/08/23 Unknown Rx leflunomide 10 mg tablet 5 mg PO DAILY Arthritis 05/08/23 09/26/24 History fluticasone fur. 100 mcg-umeclid 1 inh inhalation Q24H lungs #60 ea 09/12/23 09/26/24 Rx 62.5 mcg-vilant 25 mcg inhalat.powder (Trelegy Ellipta) diltiazem HCl 180 mg 180 mg PO QDAY heart rate 11/18/23 09/26/24 History capsule,extended release 24 hr empagliflozin 10 mg tablet 10 mg PO QDAY DM 11/18/23 09/26/24 History (Jardiance) metolazone 2.5 mg tablet 2.5 mg PO Q OTHER DAY PRN swelling 11/18/23 Unknown History furosemide 40 mg tablet 40 mg PO BID Swelling #60 tabs 12/26/23 09/26/24 Rx hydrocodone-acetaminophen 5-325mg 1 tab PO Q8H PRN PRN pain 05/19/24 09/26/24 History 5mg-325mg potassium chloride 20 mEq 20 meq PO BID supplement 05/19/24 09/26/24 History tablet,extended release(part/cryst) fluticasone propionate 50 2 spray intranasal QDAY PRN 08/10/24 Unknown History mcg/actuation nasal Allergies spray,suspension (Flonase Allergy Relief) Allergy/AdvReac Type Severity Reaction Status Date / Time Doircnz-MGF-MtI Reductase AdvReac Severe Myalgias Verified 09/27/24 14:48 Inhibitor (Mxoysih-Oax-Hlv Reductase Inhibitor) adhesive AdvReac Rash if on Verified 09/27/24 14:48 for extended period of time Family History Father CVA (cerebral vascular accident) Mother CVA (cerebral vascular accident) Sister CAD (coronary artery disease) Atrial fibrillation Sister COPD (chronic obstructive pulmonary disease) Surgical History History of right heart catheterization S/P insertion of spinal cord stimulator Status post insertion of spinal cord stimulator History of left hip replacement H/O left wrist surgery History of back surgery History of rotator cuff surgery S/P foot surgery, right History of right hip replacement Social History household members: none housing: house pets and animals: Yes pets and animals: dog(s) Smoking Status: Former smoker Tobacco: How many years used: 36 how long ago did patient quit smoking: Patient quit in 2000 alcohol intake: current alcohol intake frequency: a few times a week Alcohol type: beer details: rare substance use type: does not use ROS Review of Systems ROS Unobtainable: due to endotracheal tube Physical Exam Const Constitutional Narrative: Intubated, sedated and mechanically ventilated. HEENT normocephalic and head/scalp atraumatic Mouth: endotracheal tube in place and OG tube in place Eyes EOMs intact bilaterally and conjunctivae normal Neck supple General: trachea midline and CVC in place Chest inspection of chest normal Resp normal respiratory effort Auscultation: diminished lung sounds; Negative for rales, rhonchi or wheezes Cardio regular rate, S1 normal heart sound and S2 normal heart sound Rhythm: abnormal rhythm GI normal to inspection, nondistended, normoactive bowel sounds Extremity no clubbing, cyanosis or edema Skin no rashes or lesions noted Neuro Sensorium / Orientation: sedated on vent Lab / Micro Data 09/28/24 04:16 09/28/24 04:16 Labs: Laboratory Results - last 24 hr 09/27/24 04:16: Total Creatine Kinase 919 H, Troponin T Hi Sens 4Hr 74 H*, Troponin T Hi Sens 4Hr Delta 47, Triglycerides 115 09/27/24 14:20: WBC 19.3 H, RBC 4.07 L, Hgb 12.3, Hct 38.5, MCV 94.6, MCH 30.2, MCHC 31.9 L, RDW Std Deviation 45.3 H, RDW Coeff of Nicki 13.2, Plt Count 260, MPV 11.2, Immature Gran % (Auto) 0.400, Neut % (Auto) 91.8 H, Lymph % (Auto) 5.1 L, [place] % (Auto) 2.1, Eos % (Auto) 0.1, Baso % (Auto) 0.5, Absolute Neuts (auto) 17.7 H, Absolute Lymphs (auto) 0.98, Nucleated RBC % 0, PT 21.0 H, INR 1.8, Sodium 139, Potassium 3.5, Chloride Direct 99, Carbon Dioxide 24.6, Anion Gap 15, BUN 31 H, Creatinine 1.12, Estim Creat Clear Calc 36.26 L, Est GFR (MDRD) Non-Af 51 L, BUN/Creatinine Ratio 28.0 H, Glucose 135 H, Calcium 9.8, Total Bilirubin 1.29, AST 121 H, ALT 74 H, Alkaline Phosphatase 68, Total Creatine Kinase 588 H, Troponin T High Sens 27 H, Total Protein 7.1, Albumin 3.7, Globulin 3.4, Albumin/Globulin Ratio 1.1 09/27/24 15:20: Lactic Acid 2.6 H* 09/27/24 16:45: Troponin T Hi Sens 2 Hr 33 H, Troponin T Hi Sens 2Hr Delta 6 09/27/24 20:15: Urine Color Yellow, Urine Clarity Clear, Urine pH 6.0, Ur Specific [place] 1.020, Urine Protein 500 H, Urine Glucose (UA) 250 H, Urine Ketones Negative, Urine Occult Blood 250 H, Urine Nitrite Negative, Urine Bilirubin Negative, Urine Urobilinogen 1 H, Ur Leukocyte Esterase Negative, Urine RBC 0-5 SEEN, Urine WBC 0 SEEN, Ur Squamous Epith Cells 0 SEEN, Urine Bacteria 2+, Urine Mucus 0 SEEN 09/28/24 04:16: WBC 13.3 H, RBC 3.98 L, Hgb 12.2, Hct 35.8 L, MCV 89.9, MCH 30.7, MCHC 34.1 D, RDW Std Deviation 43.1, RDW Coeff of Nicki 13.1, Plt Count 185, MPV 10.9, Sodium 138, Potassium 3.0 L, Chloride 99, Carbon Dioxide 23.1, Anion Gap 16 H, BUN 43 H, Creatinine 1.41 H, Estim Creat Clear Calc 28.10 L, Est GFR (MDRD) Non-Af 38 L, BUN/Creatinine Ratio 30.4 H, Glucose 163 H, Calcium 9.2 Micro: Microbiology 09/27/24 20:08 Mucosa - Nasopharyngeal Respiratory Panel (PCR) - Final 09/27/24 20:15 Urine Catheter - [place] Legionella Antigen - Final 09/27/24 20:15 Urine Catheter - [place] Streptococcus pneumoniae Antigen (M - Final 09/27/24 20:08 Mucosa - Nose SARS-CoV-2, Influenza & RSV (PCR) - Final ABG Data ABG results: ABG 09/27/24 09/27/24 09/27/24 15:55 18:54 22:50 Specimen Type ART ART ART Sample Site R Radial R Radial L Radial pH 7.47 H 7.38 7.46 H Bicarbonate Actual 27.4 H 25.2 20.5 L Total CO2 29 27 21 Base Excess 4 H 0 -3 L O2 Saturation 88 L 83 L 99 O2 % 4.0 50.0 100.0 ABG pCO2 37.9 42.5 28.8 L ABG pO2 52 L 48 L 118 H Wes Test Positive N/A Respiration Rate 16 O2 Delivery Device Not entered Venti Mask Adult Vent Vent Mode Not entered Not entered AC Tidal Volume 450.0 POC PEEP 5 Rhythm Strip Rhythm Strip: A-fib Rate: 183 Imaging Radiology Impression Chest X-Ray 09/27/24 15:30 IMPRESSION: Patchy right lower lobe infiltrate with mild increased markings at the left lung base. Reading Location: [facility] Brain [facility] 09/27/24 15:31 IMPRESSION: No acute abnormality is seen. Reading Location: [facility] Chest X-Ray 09/27/24 19:19 IMPRESSION: The distal tip of the endotracheal tube is 1.1 cm above the nas. Nasogastric tube terminates within the stomach. Reading Location: [facility] Chest X-Ray 09/28/24 06:46 IMPRESSION: Improving bibasilar infiltrates. Follow-up until resolution. Enteric tube noted with tip below the diaphragm but cut off from the film. Reading Location: [facility] Charges/Coding Procedures Hospitalists Procedures: 08492 Critical Care 1st Hr
[2024-09-28] MEDS: Potassium Chloride Oral Tablet 20 MEQ PO ×2 (08:29→17:15)
[2024-09-28] MEDS: Leflunomide 10 MG TABLET 5 MG PO (08:30)
--- NOTE | 2024-09-28 08:32 | PCM.PN.HOSP ---
Subjective Subjective Remains intubated Objective Data Objective Data Vital Signs: Vital Signs Temp Pulse Resp BP Pulse Ox O2 Del Method O2 Flow Rate 97.1 F L 99 16 107/64 99 Mechanical Ventilator 6 09/28/24 08:00 09/28/24 08:00 09/28/24 08:00 09/28/24 08:00 09/28/24 08:00 09/28/24 08:00 09/27/24 17:50 FiO2 60 09/28/24 08:00 Oxygen Flow Rate (L/min) 6 Oxygen Delivery Method Mechanical Ventilator Weight: 135 lb 9.349 oz Body Mass Index (BMI) 25.6 Intake & Output: Intake and Output for Last 24 Hours 09/27/24 09/28/24 09/29/24 03:59 03:59 03:59 Intake Total 1707.01 / 1740.31 150.71 / 150.71 Output Total 300 / 300 200 / 200 Balance 1407.01 / 1440.31 -49.29 / -49.29 Lab / Micro Data 09/28/24 04:16 09/28/24 04:16 Labs: Laboratory Results - last 24 hr 09/27/24 04:16: Total Creatine Kinase 919 H, Troponin T Hi Sens 4Hr 74 H*, Troponin T Hi Sens 4Hr Delta 47, Triglycerides 115 09/27/24 14:20: WBC 19.3 H, RBC 4.07 L, Hgb 12.3, Hct 38.5, MCV 94.6, MCH 30.2, MCHC 31.9 L, RDW Std Deviation 45.3 H, RDW Coeff of Nicki 13.2, Plt Count 260, MPV 11.2, Immature Gran % (Auto) 0.400, Neut % (Auto) 91.8 H, Lymph % (Auto) 5.1 L, [place] % (Auto) 2.1, Eos % (Auto) 0.1, Baso % (Auto) 0.5, Absolute Neuts (auto) 17.7 H, Absolute Lymphs (auto) 0.98, Nucleated RBC % 0, PT 21.0 H, INR 1.8, Sodium 139, Potassium 3.5, Chloride Direct 99, Carbon Dioxide 24.6, Anion Gap 15, BUN 31 H, Creatinine 1.12, Estim Creat Clear Calc 36.26 L, Est GFR (MDRD) Non-Af 51 L, BUN/Creatinine Ratio 28.0 H, Glucose 135 H, Calcium 9.8, Total Bilirubin 1.29, AST 121 H, ALT 74 H, Alkaline Phosphatase 68, Total Creatine Kinase 588 H, Troponin T High Sens 27 H, Total Protein 7.1, Albumin 3.7, Globulin 3.4, Albumin/Globulin Ratio 1.1 09/27/24 15:20: Lactic Acid 2.6 H* 09/27/24 16:45: Troponin T Hi Sens 2 Hr 33 H, Troponin T Hi Sens 2Hr Delta 6 09/27/24 20:15: Urine Color Yellow, Urine Clarity Clear, Urine pH 6.0, Ur Specific [place] 1.020, Urine Protein 500 H, Urine Glucose (UA) 250 H, Urine Ketones Negative, Urine Occult Blood 250 H, Urine Nitrite Negative, Urine Bilirubin Negative, Urine Urobilinogen 1 H, Ur Leukocyte Esterase Negative, Urine RBC 0-5 SEEN, Urine WBC 0 SEEN, Ur Squamous Epith Cells 0 SEEN, Urine Bacteria 2+, Urine Mucus 0 SEEN 09/28/24 04:16: WBC 13.3 H, RBC 3.98 L, Hgb 12.2, Hct 35.8 L, MCV 89.9, MCH 30.7, MCHC 34.1 D, RDW Std Deviation 43.1, RDW Coeff of Nicki 13.1, Plt Count 185, MPV 10.9, Sodium 138, Potassium 3.0 L, Chloride 99, Carbon Dioxide 23.1, Anion Gap 16 H, BUN 43 H, Creatinine 1.41 H, Estim Creat Clear Calc 28.10 L, Est GFR (MDRD) Non-Af 38 L, BUN/Creatinine Ratio 30.4 H, Glucose 163 H, Calcium 9.2 Micro: Microbiology 09/27/24 20:08 Mucosa - Nasopharyngeal Respiratory Panel (PCR) - Final 09/27/24 20:15 Urine Catheter - Biswas Legionella Antigen - Final 09/27/24 20:15 Urine Catheter - [place] Streptococcus pneumoniae Antigen (M - Final 09/27/24 20:08 Mucosa - Nose SARS-CoV-2, Influenza & RSV (PCR) - Final ABG Data ABG results: ABG 09/27/24 09/27/24 09/27/24 15:55 18:54 22:50 Specimen Type ART ART ART Sample Site R Radial R Radial L Radial pH 7.47 H 7.38 7.46 H Bicarbonate Actual 27.4 H 25.2 20.5 L Total CO2 29 27 21 Base Excess 4 H 0 -3 L O2 Saturation 88 L 83 L 99 O2 % 4.0 50.0 100.0 ABG pCO2 37.9 42.5 28.8 L ABG pO2 52 L 48 L 118 H Wes Test Positive N/A Respiration Rate 16 O2 Delivery Device Not entered Venti Mask Adult Vent Vent Mode Not entered Not entered AC Tidal Volume 450.0 POC PEEP 5 Radiography Diagnostic Testing: Radiology Impression Chest X-Ray 09/27/24 15:30 IMPRESSION: Patchy right lower lobe infiltrate with mild increased markings at the left lung base. Reading Location: [facility] Brain CT 09/27/24 15:31 IMPRESSION: No acute abnormality is seen. Reading Location: [facility] Chest X-Ray 09/27/24 19:19 IMPRESSION: The distal tip of the endotracheal tube is 1.1 cm above the nas. Nasogastric tube terminates within the stomach. Reading Location: [facility] Chest X-Ray 09/28/24 06:46 IMPRESSION: Improving bibasilar infiltrates. Follow-up until resolution. Enteric tube noted with tip below the diaphragm but cut off from the film. Reading Location: [id number] Rhythm Strip Rhythm Strip: A-fib Rate: 183 Physical Exam Const General Appearance: intubated and patient mechanically ventilated HEENT normocephalic Eyes PERRL and conjunctivae normal Neck supple and no JVD Resp normal respiratory effort, no retractions and no use of accessory muscles Auscultation: Negative for crackles, rales, rhonchi or wheezes Cardio S1 normal heart sound, S2 normal heart sound and no murmurs Cardio Narrative: Irregular rate and rhythm GI soft to palpation and non-distended; Negative for hepatosplenomegaly Extremity no clubbing, cyanosis or edema Skin no rashes or lesions noted Neuro Sensorium / Orientation: sedated on vent Psych Appearance: intubated Assessment & Plan Assessment/Plan (1) Acute and chronic respiratory failure with hypoxia: (2) Chronic atrial fibrillation with RVR: (3) Sepsis: (4) Right lower lobe pneumonia: PLAN: Plan 1. Acute hypoxic respiratory failure and septic shock suspected secondary to community-acquired pneumonia and acute HFpEF; history of COPD on home 4 L O2 at night ? Admit under inpatient status to the ICU. Core Layer Machine Operator consulted. Chest x-ray on admit with concern for left lower lobe pneumonia with small left pleural effusion and some degree of vascular congestion. Appeared dry on exam and was given IV fluids but unfortunately had worsening respiratory status in the ED. ABG on Venturi mask with pO2 around 50 and patient with significant increased work of breathing. Was ultimately intubated in the ED. Infectious workup negative to this point. Had blood pressure drop to the 70s over 40s postintubation requiring initiation of Levophed. Will treat with IV ceftriaxone and azithromycin for now. Appreciate medical resident recommendations regarding ventilator management. Wean off Levophed as able. Notably follows with cardiology for HFpEF, see Dr. Schulz note from 08/10/24 for further details. In short, patient has history of HFpEF with moderate pulmonary hypertension. Will give 2 more doses of IV Lasix and monitor BMP and urine output. Can continue to spot diuresis as able after that. 09/28/2024: Appreciate medical resident assistance, continue with antimicrobials and intubation today, blood and urine cultures are still pending 2. Permanent A-fib with RVR on warfarin with subtherapeutic INR ? Follows with outpatient cardiology as noted above. Had A-fib with RVR up to the 180s in the ED. Only mild improvement with IV fluids. Did have more improvement with doses of IV Lopressor and initiation of Cardizem drip. Will continue Cardizem drip for now. Continue home warfarin for anticoagulation. Notably INR 1.8 on admit. Trend daily INR and continue home warfarin. Okay to continue home atenolol and diltiazem for now as well. 09/28/2024: Remains in A-fib, continue with current therapy. Will discontinue Coumadin and place on subcutaneous Lovenox for DVT prophylaxis, very minimal risk with holding full anticoagulation for a few days Chronic medical conditions: ? Hypothyroidism: Continue home Synthroid. ? GERD: Continue home PPI. ? RA: Continue home leflunomide. ? Chronic pain: Treating with IV medications as needed for now. DVT: Lovenox Charges/Coding Visit Charges Inpatient E&M: 97079 Subs Hosp L2
[2024-09-28] MEDS: Ceftriaxone 2 GM in 0.9% Normal Saline (50mL MB+) 50 ML IV (09:38)
[2024-09-28] MEDS: Chlorhexidine 15 ML PO ×2 (09:47→20:49)
--- NOTE | 2024-09-28 10:23 | CASEMGMT ---
MOSHE NIXON Assessment: Face to Face with pt for multidisciplinary rounds, pt is currently on the ventilator. MOSHE NIXON called pt dtr Shakila Shrestha who states that she has 2 step brothers and pt does not have a healthcare power of senior attorney. She inquires of where pt can get that done. Made pt dtr aware. MOSHE NIXON introduced self and role at [facility], pt dtr voices understanding and consents to assessment. Care providers, pharmacy, and demographics verified/updated. Admitting Dx: sepsis suspected secondary to CAP Strata Score: 3 PCP:Ebony Specialists:EZIO, cardio Preferred Pharmacy: [facility] Insurance: [facility] Prescription Benefit: yes LNOK: Shakilakellie Shrestha, dtr; Corinne Latif, sister Living Arrangements: Pt lives alone in a single story home with 2 steps to enter with a rail. Dtr reports pt is I in all ADL/IADLs at home. Transportation: Pt drives self. DME:pox, oxygen at HS, rollator HHC/SNF: Pt has had [facility] HHC in the past and pt dtr denies SNF stays. CM to follow. Advised pt dtr to ask CM if any further questions/concerns/needs arise, voices understanding. Pt Goal: TBD Plan: TBD pending course of hospitalization Isi MESA CM
[2024-09-28] MEDS: Pantoprazole Sodium 40 MG in 0.9% Normal Saline (100mL MB+) 100 ML 330 MG IV (10:37)
[2024-09-28] MEDS: Potassium Chloride 20mEq/100mL 20 MEQ/100 ML IV.SOLN. 100 MEQ IV BOLUS ×2 (11:07→12:17)
[2024-09-28] MEDS: Enoxaparin 30 MG/0.3 ML Syringe SC (11:09)
[2024-09-28] MEDS: Vital High Protein 1,000 ML 25 ML GT (13:45)
[2024-09-28] MEDS: fentaNYL drip 100 ML 5 MCG CONT INF (15:00)
[2024-09-28 17:00] LABS: Pro- Brain NATRIURETIC PEPTIDE > 70000 pg/mL (<=1800)
[2024-09-28] MEDS: Propofol 10MG/Ml 1,000 MG/100 ML Bottle 5.8 MG CONT INF (18:15)
[2024-09-28] MEDS: Azithromycin 500 MG in 0.9% Normal Saline (250mL Bag) 250 ML 255 MG IV (20:50)
[2024-09-28] MEDS: Gabapentin 300 MG Capsule PO (20:51)
[2024-09-28] MEDS: Norepinephrine 8 mg/250 mL 0.9% NS 9.4 MG CONT INF (21:00)
[2024-09-29] VITALS (42 sets, daily range): BP systolic 64–135; BP diastolic 35–89; PULSE 56–115; RESP 13–25; TEMP 37.3–38.7; O2SAT 92–98; BMI 25.7
[2024-09-29] MEDS: CHLORHEXIDINE GLUC 2% CLOTH 1 EACH TOWELETTE TOPICAL (00:40)
[2024-09-29] MEDS: Propofol 10MG/Ml 1,000 MG/100 ML Bottle 11.7 MG CONT INF (03:00)
[2024-09-29] MEDS: Levothyroxine 25 MCG TABLET PO (04:55)
[2024-09-29] MEDS: 0.9% Saline Lock 10 ML Syringe IV (04:55)
[2024-09-29] MEDS: Diltiazem 125 MG in Dextrose 5%-Water (100mL Bag) 100 ML 15 MG IV ×2 (04:57→14:26)
[2024-09-29 04:58] LABS: Absolute Lymphocyte Count 1.14 X10^3/uL (0.83-4.51); Absolute Neutrophil Count 8.5 X10^3/uL (2.0-7.7); Basophil# 0.02 X10^3/uL; Basophil% 0.2 % (0-1); Eosinophil# 0.02 X10^3/uL; Eosinophils% 0.2 % (0-5); Hematocrit 32.7 % (37-47); Lymphocyte # 1.14 X10^3/ul (0.83-4.51); Lymphocyte % 11.4 % (19-41); Mean Corp Hgb Conc 33.6 g/dL (32-36); Mean Corpuscular Hgb 30.2 pg (27.0-32.0); Mean Corpuscular Volume 89.8 fL (81-99); Mean Platelet Vol. 10.9 fl (6.2-12.0); Monocyte# 0.25 X10^3/uL; Monocyte% 2.5 % (0-10); NRBC Flagged by Analyzer 0 % (0-5); Neutrophil # 8.49 X10^3/uL (2.7-7.7); Platelet Count 203 K/mm3 (150-450); RBC Distribution Width CV 13.1 % (11.6-14.6); RBC Distribution Width SD 43.1 fl (35.1-43.9); Red Blood Count 3.64 M/mm3 (4.2-5.4)
[2024-09-29 05:21] LABS: Anion Gap 13 (5-15); BUN 47 mg/dL (4-19); BUN/Creat Ratio 34.2 RATIO (10-20); Calcium,Total 8.8 mg/dL (7.6-11.0); Carbon Dioxide 22.7 mmol/L (21.0-32.0); Chloride 107 mmol/L (98-108); Creatinine, Serum 1.36 mg/dL (0.70-1.20); EST Glomerular Filtration Rate 40 (>60); Estimated Creatinine Clearance 29.18 ml/min (50-250); Glucose 143 mg/dL (70-99); Potassium 3.1 mmol/L (3.3-5.1); Sodium Level 143 mmol/L (133-145)
--- NOTE | 2024-09-29 07:25 | PCM.PN.HOSP ---
Reason for Visit Reason for Visit: Diagnoses Sepsis, unspecified organism (09/27/24) Chronic atrial fibrillation, unspecified (09/27/24) Pneumonia, unspecified organism (09/27/24) Acute and chronic respiratory failure with hypoxia (09/27/24) Subjective Subjective Patient is a 79-year-old lady who presented with progressive generalized weakness and fatigue. Diagnosed with acute hypoxic respiratory failure initially managed on noninvasive ventilation she however did not tolerate resulting in patient being intubated. Subsequently admitted to the intensive care unit for further management Objective Data Objective Data Vital Signs: Vital Signs Temp Pulse Resp BP Pulse Ox O2 Del Method O2 Flow Rate 99.5 F H 77 16 106/61 97 Mechanical Ventilator 6 09/29/24 07:00 09/29/24 07:00 09/29/24 07:00 09/29/24 07:00 09/29/24 07:00 09/29/24 07:00 09/27/24 17:50 FiO2 30 09/29/24 07:00 Oxygen Flow Rate (L/min) 6 Oxygen Delivery Method Mechanical Ventilator Weight: 61.7 kg Body Mass Index (BMI) 25.7 Intake & Output: Intake and Output for Last 24 Hours 09/27/24 09/28/24 09/29/24 23:59 23:59 23:59 Intake Total 1533.78 / 1614.16 2054.96 / 2146.06 713.47 / 713.47 Output Total 1250 / 1250 200 / 200 Balance 1533.78 / 1314.16 804.96 / 896.06 513.47 / 513.47 Lab / Micro Data 09/29/24 04:50 09/29/24 04:50 Labs: Laboratory Results - last 24 hr 09/28/24 04:14: [place] > [address]83 H 09/28/24 04:16: B-Natriuretic Peptide Cancelled 09/28/24 09:35: Procalcitonin 20.70 H, TSH 1.070 09/29/24 04:50: WBC 10.0, RBC 3.64 L, Hgb 11.0 L, Hct 32.7 L, MCV 89.8, MCH 30.2, MCHC 33.6, RDW Std Deviation 43.1, RDW Coeff of Nicki 13.1, Plt Count 203, MPV 10.9, Immature Gran % (Auto) 0.700, Neut % (Auto) 85.0 H, Lymph % (Auto) 11.4 L, [place] % (Auto) 2.5, Eos % (Auto) 0.2, Baso % (Auto) 0.2, Absolute Neuts (auto) 8.5 H, Absolute Lymphs (auto) 1.14, Nucleated RBC % 0, Sodium 143, Potassium 3.1 L, Chloride 107, Carbon Dioxide 22.7, Anion Gap 13, BUN 47 H, Creatinine 1.36 H, Estim Creat Clear Calc 29.18 L, Est GFR (MDRD) Non-Af 40 L, BUN/Creatinine Ratio 34.2 H, Glucose 143 H, Calcium 8.8 Micro: Microbiology 09/27/24 20:30 Sputum, Expectorated/Coughed Gram Stain - Final 09/27/24 20:08 Mucosa - Nasopharyngeal Respiratory Panel (PCR) - Final 09/27/24 20:15 Urine Catheter - Biswas Legionella Antigen - Final 09/27/24 20:15 Urine Catheter - Biswas Streptococcus pneumoniae Antigen (M - Final 09/27/24 20:08 Mucosa - Nose SARS-CoV-2, Influenza & RSV (PCR) - Final Radiography Diagnostic Testing: Radiology Impression Chest X-Ray 09/28/24 06:46 IMPRESSION: Improving bibasilar infiltrates. Follow-up until resolution. Enteric tube noted with tip below the diaphragm but cut off from the film. Reading Location: [id number] Rhythm Strip Rhythm Strip: A-fib Rate: 183 Physical Exam Narrative GENERAL: Awake on the vent HEENT: Atraumatic; normocephalic, ET tube in place EYES; Anicteric, Normal Conjunctiva NECK; supple, normal thyroid, RESPIRATORY: Diminished to auscultation CARDIOVASCULAR: Regular S1 S2, GI: soft, normoactive bowel sounds, : No Renal angle tenderness; EXTREMITIES: No edema, no clubbing, MUSCULOSKELETAL: no muscle wasting NEURO: Awake; no lateralizing signs. SKIN: No Rash Assessment & Plan Assessment/Plan (1) Acute and chronic respiratory failure with hypoxia: (2) Chronic atrial fibrillation with RVR: (3) Sepsis: (4) Right lower lobe pneumonia: PLAN: Plan Patient is a 79-year-old lady who presented with progressive generalized weakness and fatigue. Diagnosed with acute hypoxic respiratory failure initially managed on noninvasive ventilation she however did not tolerate resulting in patient being intubated. Subsequently admitted to the intensive care unit for further management 1. Acute hypoxic respiratory failure ? Secondary to combination of pneumonia as well as acute congestive heart failure with preserved ejection fraction patient was intubated admitted to the intensive care unit consult placed to fiscal agent for vent management 2. Septic shock ? Secondary to community-acquired pneumonia patient managed with broad-spectrum antibiotic therapy. Patient was on pressors has since been weaned off response to therapy manage with serial lactic acid monitoring 3. Pneumonia - Secondary to streptococcal pneumonia, Blood and sputum cultures sent. Patient placed on Rocephin and Zithromax and placed on oxygen titrated to keep Pulse Ox greater than 90. Patient strep pneumo antigen came back positive in her urine 4. Acute on chronic congestive heart failure with preserved ejection fraction ? Echo obtained on 02/17/2024 from an outside hospital demonstrated EF of 57?5% with RVSP of 52 mmHg consistent with moderate pulmonary hypertension. Patient did receive treatment with furosemide 5. Chronic A-fib with RVR ? Patient was started on Cardizem drip. Patient is on systemic anticoagulation with warfarin held on admission placed on therapeutic Lovenox 6. Hypothyroidism ? Patient is on levothyroxine home dose continued 7. GERD ? On PPI 8. Rheumatoid arthritis ? Patient is on leflunomide 9. Anemia ? Secondary to chronic disorder monitoring H&H and transfuse if patient becomes symptomatic or hemoglobin falls below 7 10. Hypokalemia ? Corrected for protocol repeat labs ordered in a.m. for monitor 11. Acute kidney injury ? Baseline creatinine 0.78 patient creatinine did peak at 1.41 trending down 12. DVT prophylaxis ? Subcu Lovenox Time spent in the patient's overall evaluation,decision-making process, review of diagnostic data, adjustment of management, discussion with other providers, nursing nursing and ancillary staff involved in patient's care documentation, 50. Minutes Charges/Coding Visit Charges Inpatient E&M: 70142 [facility] Hosp L3
[2024-09-29] MEDS: Ipratropium/Albuterol Sulfate 3 ML AMPUL.NEB INHALATION ×3 (07:26→19:11)
--- NOTE | 2024-09-29 07:42 | PCM.PN.INT ---
Assessment & Plan Assessment/Plan (1) Acute and chronic respiratory failure with hypoxia: PLAN: Plan RECOMMENDATIONS: 1. Proceed with a trial of extubation this morning. 2. Once extubated, wean supplemental oxygen to maintain saturations at or above 90%. 3. Continue antimicrobials as ordered. 4. Continue to wean Levophed to maintain a mean arterial pressure at or above 65 mmHg. 5. Continue scheduled bronchodilators. 6. Ongoing electrolyte repletion as needed. 7. Continue appropriate ICU prophylaxis. 8. Perform swallow evaluation prior to advancement of diet. 9. Resume home p.o. Lasix regimen once able to tolerate p.o. intake. IMPRESSIONS: 1. Acute on chronic hypoxemic respiratory failure Most likely multifactorial in etiology with asthma/COPD overlap exacerbation related to pneumococcal pneumonia coupled with increased oxygen demand in the setting of atrial fibrillation with RVR. The patient was subsequently intubated as a consequence of the aforementioned. With supportive care, including antimicrobials and scheduled bronchodilators, the patient was ultimately able to be extubated on the morning of a 5. She will be continued on supplemental oxygen to maintain saturations at or above 90%. Recommend performing a swallow evaluation prior to advancement of diet. 2. Septic shock Clinical concern for underlying pneumococcal pneumonia as precipitating etiology. Plan to continue Levophed to maintain a mean arterial pressure at or above 65 mmHg. Antimicrobials will be continued as ordered. 3. Atrial fibrillation with RVR Continue Cardizem as ordered. Resume Coumadin once medically feasible. In the interim, continue Lovenox. 4. History of pulmonary hypertension/history of rheumatoid arthritis/prior tobacco dependency/hypothyroidism Complicates care, management, recovery and prognosis. Continue home medications as indicated. Physical therapy to work with the patient. TIME: 34 minutes of critical care time, independent of procedures, was spent addressing the patient's acute on chronic hypoxemic respiratory failure, septic shock, atrial fibrillation with RVR, review of all data and collaboration with the care team. Subjective Subjective The patient was seen and examined at the bedside this morning. Events from the last 24 hours have been reviewed. The patient currently has a low-grade fever and remains on Levophed at 5 mcg/min to maintain hemodynamic stability. She remains on assist-control mode of mechanical ventilation with an FiO2 requirement of 30% and PEEP of 5. The patient has been tolerant of tube feeding. She is currently documented to be overall net +2.8 L for the hospitalization. White blood cell count has normalized. Potassium is low at 3.1. Creatinine is stable at 1.36. The patient did well this morning with her spontaneous awakening trial. She subsequently completed a spontaneous breathing trial without complication. She is alert and able to follow commands. Therefore, the patient was extubated. Objective Data Objective Data The patient's most recent lab work, culture data and imaging studies have all been personally reviewed. Streptococcal urinary antigen was positive. Sputum and urine cultures are pending. Vital Signs: Vital Signs Temp Pulse Resp BP Pulse Ox O2 Del Method O2 Flow Rate 99.5 F H 82 16 106/61 97 Mechanical Ventilator 6 09/29/24 07:00 09/29/24 07:26 09/29/24 07:26 09/29/24 07:00 09/29/24 07:26 09/29/24 07:00 09/27/24 17:50 FiO2 36 09/29/24 07:26 Oxygen Flow Rate (L/min) 6 Oxygen Delivery Method Mechanical Ventilator Weight: 136 lb 0.403 oz Body Mass Index (BMI) 25.7 Intake & Output: Intake and Output for Last 24 Hours 09/27/24 09/28/24 09/29/24 23:59 23:59 23:59 Intake Total 1533.78 / 1614.16 2054.96 / 2146.06 713.47 / 713.47 Output Total 1250 / 1250 200 / 200 Balance 1533.78 / 1314.16 804.96 / 896.06 513.47 / 513.47 Lab / Micro Data Attestation: I reviewed the patient's lab results. 09/29/24 04:50 09/29/24 04:50 Labs: Laboratory Results - last 24 hr 09/28/24 04:14: [place] II > 38410 H 09/28/24 04:16: B-Natriuretic Peptide Cancelled 09/28/24 09:35: Procalcitonin 20.70 H, TSH 1.070 09/29/24 04:50: WBC 10.0, RBC 3.64 L, Hgb 11.0 L, Hct 32.7 L, MCV 89.8, MCH 30.2, MCHC 33.6, RDW Std Deviation 43.1, RDW Coeff of Nicki 13.1, Plt Count 203, MPV 10.9, Immature Gran % (Auto) 0.700, Neut % (Auto) 85.0 H, Lymph % (Auto) 11.4 L, [place] % (Auto) 2.5, Eos % (Auto) 0.2, Baso % (Auto) 0.2, Absolute Neuts (auto) 8.5 H, Absolute Lymphs (auto) 1.14, Nucleated RBC % 0, Sodium 143, Potassium 3.1 L, Chloride 107, Carbon Dioxide 22.7, Anion Gap 13, BUN 47 H, Creatinine 1.36 H, Estim Creat Clear Calc 29.18 L, Est GFR (MDRD) Non-Af 40 L, BUN/Creatinine Ratio 34.2 H, Glucose 143 H, Calcium 8.8 Micro: Microbiology 09/27/24 20:30 Sputum, Expectorated/Coughed Gram Stain - Final 09/27/24 20:08 Mucosa - Nasopharyngeal Respiratory Panel (PCR) - Final 09/27/24 20:15 Urine Catheter - Biswas Legionella Antigen - Final 09/27/24 20:15 Urine Catheter - Biswas Streptococcus pneumoniae Antigen (M - Final 09/27/24 20:08 Mucosa - Nose SARS-CoV-2, Influenza & RSV (PCR) - Final Rhythm Strip Rhythm Strip: A-fib Rate: 183 Physical Exam Const Constitutional Narrative: Intubated and mechanically ventilated. Currently tolerating spontaneous mode of mechanical ventilation. HEENT normocephalic and head/scalp atraumatic Mouth: endotracheal tube in place and OG tube in place Teeth and Gingiva: poor dentition Eyes EOMs intact bilaterally and conjunctivae normal Neck supple General: trachea midline and CVC in place Chest inspection of chest normal Resp normal respiratory effort Auscultation: diminished lung sounds; Negative for rales, rhonchi or wheezes Cardio regular rate, S1 normal heart sound and S2 normal heart sound Rhythm: abnormal rhythm GI normal to inspection, nondistended, normoactive bowel sounds Extremity no clubbing, cyanosis or edema Skin no rashes or lesions noted Neuro Neuro Narrative: Alert and able to follow commands appropriately. Sensorium / Orientation: sedated on vent Charges/Coding Procedures Hospitalists Procedures: 04180 Critical Care 1st Hr
[2024-09-29] MEDS: Potassium Chloride Oral Tablet 20 MEQ PO (08:00)
[2024-09-29] MEDS: Multivitamins,Ther W-Minerals Tablet 1 TABLET PO (08:01)
[2024-09-29] MEDS: Chlorhexidine 15 ML PO (08:01)
[2024-09-29] MEDS: Leflunomide 10 MG TABLET 5 MG PO (08:01)
[2024-09-29] MEDS: Enoxaparin 30 MG/0.3 ML Syringe SC (08:01)
[2024-09-29] MEDS: Pantoprazole Sodium 40 MG in 0.9% Normal Saline (100mL MB+) 100 ML 330 MG IV (08:10)
[2024-09-29] MEDS: Gabapentin 300 MG Capsule PO (08:10)
[2024-09-29] MEDS: Ceftriaxone 2 GM in 0.9% Normal Saline (50mL MB+) 50 ML IV (08:44)
[2024-09-29] MEDS: Potassium Chloride 10mEq/100mL 10 MEQ/100 ML IV.SOLN. 100 MEQ IV BOLUS ×4 (09:31→13:27)
[2024-09-29] MEDS: Acetaminophen 650 MG/20 ML UDC GT (11:13)
--- NOTE | 2024-09-29 22:12 | PCM.HOSP.N ---
Hospitalist Note BP dropped again, had been of levo, restarted.
[2024-09-29] MEDS: Norepinephrine 8 mg/250 mL 0.9% NS 9.4 MG CONT INF (22:20)
[2024-09-29] MEDS: Ondansetron 4 MG/2 ML Vial IV (22:37)
[2024-09-30] VITALS (20 sets, daily range): BP systolic 81–138; BP diastolic 54–85; PULSE 78–122; RESP 16–28; TEMP 36.9–37.3; O2SAT 91–100; BMI 26.0
[2024-09-30 03:23] LABS: Absolute Lymphocyte Count 0.83 X10^3/uL (0.83-4.51); Absolute Neutrophil Count 16.7 X10^3/uL (2.0-7.7); Basophil# 0.09 X10^3/uL; Basophil% 0.5 % (0-1); Eosinophil# 0.46 X10^3/uL; Eosinophils% 2.4 % (0-5); Hematocrit 31.4 % (37-47); Hemoglobin 10.3 g/dL (12.0-15.0); Lymphocyte # 0.83 X10^3/ul (0.83-4.51); Lymphocyte % 4.3 % (19-41); Mean Corp Hgb Conc 32.8 g/dL (32-36); Mean Corpuscular Hgb 30.2 pg (27.0-32.0); Mean Corpuscular Volume 92.1 fL (81-99); Mean Platelet Vol. 11.4 fl (6.2-12.0); Monocyte# 0.82 X10^3/uL; Monocyte% 4.2 % (0-10); NRBC Flagged by Analyzer 0.4 % (0-5); Neutrophil # 16.67 X10^3/uL (2.7-7.7); Neutrophil % 85.9 % (47-70); Platelet Count 199 K/mm3 (150-450); RBC Distribution Width CV 13.6 % (11.6-14.6); RBC Distribution Width SD 46.2 fl (35.1-43.9); Red Blood Count 3.41 M/mm3 (4.2-5.4); White Blood Count 19.4 K/mm3 (4.4-11.0)
[2024-09-30] MEDS: Ipratropium/Albuterol Sulfate 3 ML AMPUL.NEB INHALATION ×3 (03:37→19:14)
[2024-09-30 03:59] LABS: Magnesium 2.5 mg/dL (1.5-2.2)
[2024-09-30 04:01] LABS: Anion Gap 19 (5-15); BUN 67 mg/dL (4-19); BUN/Creat Ratio 27.4 RATIO (10-20); Carbon Dioxide 17.6 mmol/L (21.0-32.0); Chloride 101 mmol/L (98-108); Creatinine, Serum 2.43 mg/dL (0.70-1.20); EST Glomerular Filtration Rate 20 (>60); Estimated Creatinine Clearance 16.33 ml/min (50-250); Glucose 99 mg/dL (70-99); Potassium 5.8 mmol/L (3.3-5.1); Sodium Level 137 mmol/L (133-145)
--- NOTE | 2024-09-30 06:32 | RAD_ITS ---
PROCEDURE: CHEST 1 VIEW (PORTABLE) REASON FOR EXAM: Shortness of breath TECHNIQUE: Frontal view of the chest. COMPARISON: Chest x-ray dated 09/28/2024. FINDINGS: There has been interval removal of endotracheal tube, enteric tube. Pain stimulator leads, bilateral shoulder prosthesis remains. The cardiac silhouette is stable in size. There is improved aeration within the upper lung zones when compared to prior examination. Residual infiltrate remains within the medial right lower lobe. Follow-up to complete resolution is recommended. There is improvement in aeration of the left lower lung zone. RAD/Chest 1 View (Portable) IMPRESSION: Residual bibasilar opacities, [id number]. Although these findings are improved since prior examination. Follow-up until complete resolution is recommended. Interval removal of endotracheal tube and enteric tube. Reading Location: [id number]
--- NOTE | 2024-09-30 07:40 | PCM.PN.INT ---
Assessment & Plan Assessment/Plan (1) Acute and chronic respiratory failure with hypoxia: PLAN: Plan RECOMMENDATIONS: 1. Repeat morning labs. 2. Continue to wean supplemental oxygen as tolerated. 3. Continue to hold nephrotoxic medications. 4. Continue antimicrobials to complete treatment course. 5. Continue scheduled bronchodilators and inhaled corticosteroid. 6. Continue appropriate DVT prophylaxis. IMPRESSIONS: 1. Acute on chronic hypoxemic respiratory failure Most likely multifactorial in etiology with asthma/COPD overlap exacerbation related to pneumococcal pneumonia coupled with increased oxygen demand in the setting of atrial fibrillation with RVR. The patient was subsequently intubated as a consequence of the aforementioned. With supportive care, including antimicrobials and scheduled bronchodilators, the patient was ultimately able to be extubated on the morning of a 5. She will be continued on supplemental oxygen to maintain saturations at or above 90%. Dietary advancement per speech therapy recommendations. 2. Septic shock Clinical concern for underlying pneumococcal pneumonia as precipitating etiology. The patient has been weaned from Levophed and remains hemodynamically stable. Antimicrobials will be continued as ordered. 3. Atrial fibrillation with RVR Recommend resuming p.o. Cardizem per home regimen along with Coumadin, once medically feasible. In the interim, continue Lovenox. 4. History of pulmonary hypertension/history of rheumatoid arthritis/prior tobacco dependency/hypothyroidism Complicates care, management, recovery and prognosis. Continue home medications as indicated. Physical therapy to work with the patient. This note was generated with [employer] dictation software. It may contain incorrect words, spelling, and punctuation that were not noted in checking the note before signing. Subjective Subjective The patient was seen and examined at the bedside this morning. Events from the last 24 hours have been reviewed. The patient is currently afebrile, hemodynamically stable and maintaining appropriate oxygen saturations on 4 L/min via nasal cannula. The patient is currently documented to be overall net +4.2 L for the hospitalization. White blood cell count increased to 19,000 this morning. In addition, the patient's potassium increased to 5.8 with a bicarbonate of 18, anion gap of 19 and creatinine of 2.43. Objective Data Objective Data The patient's most recent lab work, culture data and imaging studies have all been personally reviewed. Streptococcal urinary antigen was positive. Sputum culture has only demonstrated growth of presumptive Dannielle albicans. Vital Signs: Vital Signs Temp Pulse Resp BP Pulse Ox O2 Del Method O2 Flow Rate 99 F 82 28 H 133/68 H 94 Nasal Cannula 4 09/30/24 04:00 09/30/24 06:00 09/30/24 07:00 09/30/24 07:00 09/30/24 07:00 09/30/24 07:00 09/30/24 07:00 FiO2 30 09/29/24 09:00 Oxygen Flow Rate (L/min) 4 Oxygen Delivery Method Nasal Cannula Weight: 137 lb 12.623 oz Body Mass Index (BMI) 26.0 Intake & Output: Intake and Output for Last 24 Hours 09/28/24 09/29/24 09/30/24 23:59 23:59 23:59 Intake Total 2054.96 / 2146.06 2622.96 / 2622.96 50 / 50 Output Total 1250 / 1250 600 / 600 200 / 200 Balance 804.96 / 896.06 2021. / -150 / -150 Lab / Micro Data Attestation: I reviewed the patient's lab results. 09/30/24 03:14 09/30/24 03:14 Labs: Laboratory Results - last 24 hr 09/30/24 03:14: WBC 19.4 H, RBC 3.41 L, Hgb 10.3 L, Hct 31.4 L, MCV 92.1, MCH 30.2, MCHC 32.8, RDW Std Deviation 46.2 H, RDW Coeff of Nicki 13.6, Plt Count 199, MPV 11.4, Immature Gran % (Auto) 2.700 H, Neut % (Auto) 85.9 H, Lymph % (Auto) 4.3 L, [place] % (Auto) 4.2, Eos % (Auto) 2.4, Baso % (Auto) 0.5, Absolute Neuts (auto) 16.7 H, Absolute Lymphs (auto) 0.83, Nucleated RBC % 0.4, Sodium 137, Potassium 5.8 H, Chloride 101, Carbon Dioxide 17.6 L, Anion Gap 19 H, BUN 67 H, Creatinine 2.43 H, Estim Creat Clear Calc 16.33 L, Est GFR (MDRD) Non-Af 20 L, BUN/Creatinine Ratio 27.4 H, Glucose 99, Calcium 9.0, Phosphorus 6.0 H, Magnesium 2.5 H Micro: Microbiology 09/27/24 20:30 Sputum, Expectorated/Coughed Gram Stain - Final 09/27/24 20:30 Sputum, Expectorated/Coughed Respiratory Culture - Preliminary Presumptive C albicans 09/27/24 20:08 Mucosa - Nasopharyngeal Respiratory Panel (PCR) - Final 09/27/24 20:15 Urine Catheter - Biswas Legionella Antigen - Final 09/27/24 20:15 Urine Catheter - Biswas Streptococcus pneumoniae Antigen (M - Final 09/27/24 20:08 Mucosa - Nose SARS-CoV-2, Influenza & RSV (PCR) - Final Radiography Diagnostic Testing: Radiology Impression Chest X-Ray 09/30/24 06:32 IMPRESSION: Residual bibasilar opacities, [id number]. Although these findings are improved since prior examination. Follow-up until complete resolution is recommended. Interval removal of endotracheal tube and enteric tube. Reading Location: [id number] Rhythm Strip Rhythm Strip: A-fib Rate: 183 Physical Exam Const alert and no apparent distress General Appearance: cooperative HEENT normocephalic and head/scalp atraumatic Teeth and Gingiva: poor dentition Eyes EOMs intact bilaterally, conjunctivae normal and no scleral icterus Neck supple General: trachea midline and CVC in place Chest inspection of chest normal Resp normal respiratory effort Effort and Inspection: tachypneic Auscultation: diminished lung sounds; Negative for rales, rhonchi or wheezes Cardio regular rate, S1 normal heart sound and S2 normal heart sound Rhythm: abnormal rhythm GI normal to inspection, nondistended, normoactive bowel sounds Extremity no clubbing, cyanosis or edema Skin no rashes or lesions noted Neuro CN's II-XII intact bilaterally and moves all extremities Psych Mood & Affect: flat affect Charges/Coding Visit Charges Inpatient E&M: 81701 Subs Hosp L3
--- NOTE | 2024-09-30 08:07 | PCM.PN.HOSP ---
Reason for Visit Reason for Visit: Diagnoses Sepsis, unspecified organism (09/27/24) Chronic atrial fibrillation, unspecified (09/27/24) Pneumonia, unspecified organism (09/27/24) Acute and chronic respiratory failure with hypoxia (09/27/24) Subjective Subjective patient has successfully been weaned off the vent. Chest x-ray obtained this a.m. did showResidual bibasilar opacities, [id number]-left. Although these findings are improved since prior examination. Objective Data Objective Data Vital Signs: Vital Signs Temp Pulse Resp BP Pulse Ox O2 Del Method O2 Flow Rate 99 F 82 28 H 133/68 H 94 Nasal Cannula 4 09/30/24 04:00 09/30/24 06:00 09/30/24 07:00 09/30/24 07:00 09/30/24 07:00 09/30/24 07:00 09/30/24 07:00 FiO2 30 09/29/24 09:00 Oxygen Flow Rate (L/min) 4 Oxygen Delivery Method Nasal Cannula Weight: 62.5 kg Body Mass Index (BMI) 26.0 Intake & Output: Intake and Output for Last 24 Hours 09/28/24 09/29/24 09/30/24 23:59 23:59 23:59 Intake Total 2054.96 / 2146.06 2622.96 / 2622.96 50 / 50 Output Total 1250 / 1250 600 / 600 200 / 200 Balance 804.96 / 896.06 2022.96 / 2022.96 -150 / -150 Lab / Micro Data 09/30/24 03:14 09/30/24 03:14 Labs: Laboratory Results - last 24 hr 09/30/24 03:14: WBC 19.4 H, RBC 3.41 L, Hgb 10.3 L, Hct 31.4 L, MCV 92.1, MCH 30.2, MCHC 32.8, RDW Std Deviation 46.2 H, RDW Coeff of Nicki 13.6, Plt Count 199, MPV 11.4, Immature Gran % (Auto) 2.700 H, Neut % (Auto) 85.9 H, Lymph % (Auto) 4.3 L, [place] % (Auto) 4.2, Eos % (Auto) 2.4, Baso % (Auto) 0.5, Absolute Neuts (auto) 16.7 H, Absolute Lymphs (auto) 0.83, Nucleated RBC % 0.4, Sodium 137, Potassium 5.8 H, Chloride 101, Carbon Dioxide 17.6 L, Anion Gap 19 H, BUN 67 H, Creatinine 2.43 H, Estim Creat Clear Calc 16.33 L, Est GFR (MDRD) Non-Af 20 L, BUN/Creatinine Ratio 27.4 H, Glucose 99, Calcium 9.0, Phosphorus 6.0 H, Magnesium 2.5 H Micro: Microbiology 09/27/24 20:30 Sputum, Expectorated/Coughed Gram Stain - Final 09/27/24 20:30 Sputum, Expectorated/Coughed Respiratory Culture - Preliminary Presumptive C albicans 09/27/24 20:08 Mucosa - Nasopharyngeal Respiratory Panel (PCR) - Final 09/27/24 20:15 Urine Catheter - Biswas Legionella Antigen - Final 09/27/24 20:15 Urine Catheter - Biswas Streptococcus pneumoniae Antigen (M - Final 09/27/24 20:08 Mucosa - Nose SARS-CoV-2, Influenza & RSV (PCR) - Final Radiography Diagnostic Testing: Radiology Impression Chest X-Ray 09/30/24 06:32 IMPRESSION: Residual bibasilar opacities, [id number]-left. Although these findings are improved since prior examination. Follow-up until complete resolution is recommended. Interval removal of endotracheal tube and enteric tube. Reading Location: [facility] Rhythm Strip Rhythm Strip: A-fib Rate: 183 Physical Exam Narrative GENERAL: Awake on the vent HEENT: Atraumatic; normocephalic, ET tube in place EYES; Anicteric, Normal Conjunctiva NECK; supple, normal thyroid, RESPIRATORY: Diminished to auscultation CARDIOVASCULAR: Regular S1 S2, GI: soft, normoactive bowel sounds, : No Renal angle tenderness; EXTREMITIES: No edema, no clubbing, MUSCULOSKELETAL: no muscle wasting NEURO: Awake; no lateralizing signs. SKIN: No Rash Assessment & Plan Assessment/Plan (1) Acute and chronic respiratory failure with hypoxia: (2) Chronic atrial fibrillation with RVR: (3) Sepsis: (4) Right lower lobe pneumonia: PLAN: Plan Patient is a 79-year-old lady who presented with progressive generalized weakness and fatigue. Diagnosed with acute hypoxic respiratory failure initially managed on noninvasive ventilation she however did not tolerate resulting in patient being intubated. Subsequently admitted to the intensive care unit for further management 1. Acute hypoxic respiratory failure ? Secondary to combination of pneumonia as well as acute congestive heart failure with preserved ejection fraction patient was intubated admitted to the intensive care unit consult placed to trimming cutter for vent management ? 09/30/2024; patient has successfully been weaned off the vent. Chest x-ray obtained this a.m. did showResidual bibasilar opacities, [id number]-left. Although these findings are improved since prior examination. 2. Septic shock ? Secondary to community-acquired pneumonia patient managed with broad-spectrum antibiotic therapy. Patient was on pressors has since been weaned off response to therapy manage with serial lactic acid monitoring ? 09/30/2024; patient has been weaned off 3. Pneumonia - Secondary to streptococcal pneumonia, Blood and sputum cultures sent. Patient placed on Rocephin and Zithromax and placed on oxygen titrated to keep Pulse Ox greater than 90. Patient strep pneumo antigen came back positive in her urine 4. Acute on chronic congestive heart failure with preserved ejection fraction ? Echo obtained on 02/17/2024 from an outside hospital demonstrated EF of 57?5% with RVSP of 52 mmHg consistent with moderate pulmonary hypertension. Patient did receive treatment with furosemide 5. Chronic A-fib with RVR ? Patient was started on Cardizem drip. Patient is on systemic anticoagulation with warfarin held on admission placed on therapeutic Lovenox 6. Acute kidney injury ? Suspected to be secondary to ischemic ATN patient apparently had some episodes of hypotension. Plan is for patient to be resuscitated with IV fluid 7. Hyperkalemia ? Secondary to patient COCO repeat potassium levels ordered and if elevated patient will receive Kayexalate did hold patient potassium supplemented 8. Rheumatoid arthritis ? Patient is on leflunomide 9. Anemia ? Secondary to chronic disorder monitoring H&H and transfuse if patient becomes symptomatic or hemoglobin falls below 7 10. Hypokalemia ? Corrected for protocol repeat labs ordered in a.m. for monitor 11. Hypothyroidism ? Patient is on levothyroxine home dose continued 12. GERD ? On PPI 13. DVT prophylaxis ? Subcu Lovenox Time spent in the patient's overall evaluation,decision-making process, review of diagnostic data, adjustment of management, discussion with other providers, nursing nursing and ancillary staff involved in patient's care documentation, 52. Minutes Charges/Coding Visit Charges Inpatient E&M: 74597 Subs Hosp L3
[2024-09-30 09:14] LABS: Magnesium 2.4 mg/dL (1.5-2.2); Phosphorus 5.4 mg/dL (2.7-4.5)
[2024-09-30] MEDS: Budesonide Respules 0.5 MG/2 ML AMPUL.NEB. INHALATION ×2 (09:22→19:15)
[2024-09-30 09:29] LABS: Anion Gap 19 (5-15); BUN 73 mg/dL (4-19); BUN/Creat Ratio 28.1 RATIO (10-20); Carbon Dioxide 18.3 mmol/L (21.0-32.0); Chloride 102 mmol/L (98-108); Creatinine, Serum 2.58 mg/dL (0.70-1.20); EST Glomerular Filtration Rate 19 (>60); Estimated Creatinine Clearance 15.47 ml/min (50-250); Glucose 88 mg/dL (70-99); Sodium Level 138 mmol/L (133-145)
[2024-09-30] MEDS: Ceftriaxone 2 GM in 0.9% Normal Saline (50mL MB+) 50 ML IV (09:29)
[2024-09-30] MEDS: Pantoprazole Sodium 40 MG in 0.9% Normal Saline (100mL MB+) 100 ML 330 MG IV (09:30)
[2024-09-30] MEDS: Enoxaparin 30 MG/0.3 ML Syringe SC (09:31)
[2024-09-30] MEDS: Fluticasone 0.05% 1 SPRAY NASAL.SRY 2 SPRAY NASAL (09:31)
[2024-09-30] MEDS: CHLORHEXIDINE GLUC 2% CLOTH 1 EACH TOWELETTE TOPICAL (09:32)
[2024-09-30] MEDS: 0.9% Normal Saline (100mL Bag) 100 ML 15 ML IV (09:36)
[2024-09-30] MEDS: 0.9% Saline Lock 10 ML Syringe IV (09:37)
[2024-09-30 09:38] LABS: Lactic Acid 1.4 mmol/L (0.0-2.0)
--- NOTE | 2024-09-30 12:23 | ST.MBS ---
Modified Barium Swallow Patient Information Study Date: 09/30/24 Study Time: 12:30 Direct Billable Minutes: 94 Total Minutes procedure & reportin Diagnosis: RLL PNA J18.9; Respiratory failure w/ hypoxia J96.21 Referring Physician: Getachew Arias Reason for Referral: Assess swallow function, assess risk for aspiration, and determine recommendations for least restrictive diet textures and compensatory strategies to facilitate safe po intake. Medical History: The patient presented to the ED on 09/27/2024 with worsening fatigue, weakness, and respiratory symptoms. She was found to have significant A-fib with RVR (heart rate 170-180), mild hypertension, and required oxygen support. Her initial workup suggested possible sepsis from pneumonia, and she was given IV fluids. Shortly after, her respiratory status worsened, and despite initial interventions, she was intubated due to severe breathing difficulty. She was placed on mechanical ventilation 09/27/24 and admitted to the ICU. Pt was subsequently extubation 09/29/24 a.m. BSE 09/29/24 recommended NPO w/ sips and chips permitted after thorough oral care w/ MBSS today prior to diet advancement to further assess aspiration risk and determine recommendations for safest, LRD textures. PMH: Hyperlipidemia, CHF (congestive heart failure), Paroxysmal atrial fibrillation, Chronic hypoxemic respiratory failure, Anemia, Spinal cord stimulator status, longterm current use of amiodarone, SOB (shortness of breath) on exertion, Pulmonary hypertension, Persistent atrial fibrillation, Anticoagulant long-term use, Edema, Lumbosacral radiculopathy at L5, Asthma-chronic obstructive pulmonary disease overlap syndrome, GI bleed, 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 classification, GERD (gastroesophageal reflux disease), Pneumonia, Bronchitis, Abnormal pulmonary function test, Essential hypertension, Small bowel obstruction, TIA (transient ischemic attack), Osteoarthritis, PUD (peptic ulcer disease), Nonrheumatic aortic (valve) insufficiency, Nonrheumatic tricuspid valve regurgitation, Carotid bruit. Current Diet Ordered: NPO Dentition: Upper Dentures and Lower Dentures Mental Status: Impaired (encephalopathy) Respiratory Status: Oxygenating on Room Air Penetration-Aspiration Scale Penetration-Aspiration Scale: OBJECTIVE ASSESSMENT OF SWALLOW FUNCTION (QUANTITATIVE ? PER TRIAL): PENETRATION / ASPIRATION SCALE (SHAH): 1 = does not enter airway 2 = enters airway/above vocal folds/ejected 3 = enters airway/above vocal folds/not ejected 4 = enters airway/contacts vocal folds/ejected 5 = enters airway/contacts vocal folds/not ejected 6 = enters airway/below vocal folds/ejected 7 = enters airway/below vocal folds/not ejected despite effort 8 = enters airway/below vocal folds/no effort VIDEOFLOROSCOPIC SCALE SCORE (SHAH): Grade I = aspiration of material that has penetrated into the laryngeal vestibule, intact cough reflex Grade II = aspiration < 10 % of the bolus, intact cough reflex Grade III = aspiration of < 10 % of the bolus, reduced cough reflex or aspiration of > 10 % of the bolus, intact cough reflex Grade IV = aspiration of > 10 % of the bolus, reduced cough reflex Penetration-Aspiration Scale Score Thin Liquid via teaspoon: Result: 3= enters airways/above vocal folds/not ejected Thin Liquid via teaspoon Trial 2: Result: 3= enters airways/above vocal folds/not ejected Thin Liquid via small single sip: cup: Result: 3= enters airways/above vocal folds/not ejected Thin Liquid via small single sip: cup Trial 2: Result: 3= enters airways/above vocal folds/not ejected [place] Thick Liquid via small single sip: cup: Result: 2= enter airway/above vocal folds/ejected Pudding via teaspoon: Result: 1= does not enter airway Comment: Esophageal screen - Complete clearance. 1/2 Cookie: Result: 1= does not enter airway Thin Liquid via sequential sips:straw: Result: 3= enters airways/above vocal folds/not ejected Comment: Cued cough and re-swallow = somewhat effective in clearing penetrated contrast. Thin Liquid via single sip: straw Effortful swallow: Result: 3= enters airways/above vocal folds/not ejected Oral Phase Labial Seal: Interlabial escape, no progression to anterior lip Tongue Control During Bolus Hold: Posterior escape of less than half of bolus Bolus Preparation/Mastication: Disorganized chewing/mashing with solid pieces of bolus unchewed Bolus Transport/Lingual Motion: Repetitive/disorganized tongue motion Oral Residue: Majority of bolus remaining (3 swallows to clear majority of cookie from oral cavity) Pharyngeal Phase Initiation of Pharyngeal Swallow: Bolus head in pyriforms Soft Palate Elevation: Trace column of contrast/air between soft palate and pharyngeal wall Laryngeal Elevation: Partial superior movement thyroid cart/partial apprx aryt-epig petiole Anterior Hyoid Excursion: Complete anterior movement Epiglottic Movement: Complete inversion Laryngeal Vestibule Closure at Height of Swallow: Incomplete; narrow column of air/contrast in laryngeal vestibule Pharyngeal Stripping Wave: Present - diminished Pharyngoesophageal Segment Opening: Parital distension and partial duration; parital obstruction of flow Tongue Base Retraction: Wide column of contrast between tongue base & post. pharyngeal wall Pharyngeal Residue: Collection of residue within or on pharyngeal structures Esophageal Phase Esophageal Clearance: Complete clearance Diagnosis/Impression Diagnosis: Mild-moderate oropharyngeal dysphagia R13.12 Impression: The oral phase is marked by... -Decreased bolus control w/ posterior loss of sequential thin to the pyriforms prior to swallow onset. -Disorganized tongue motion for A-P transport most noticeable w/ cookie trial. -Disorganized and prolonged mastication of cookie. -Moderate oral residues of cookie required 3 swallows to clear majority of cookie from oral cavity. Pt reports severe xerostomia. The pharyngeal phase is marked by... -Delayed swallow onset. -Decreased pharyngeal contraction w/ moderate pharyngeal residues, most noticeable w/ cookie trial, due to decreased TB retraction and pharyngeal stripping wave. -Decreased airway closure during the swallow. Consistent laryngeal penetration of thin liquids, which did not fully eject from the laryngeal vestibule after the swallow (trace residues remained). No aspiration observed. Small CP bar at the level of C4, which did not appear to impact bolus clearance through the UES. Recommendations Diet: Soft and Bite Sized Textures and Thin Liquids Comment: Cue intermittent cough and re-swallow Compensatory Strategies: Small Bites, Small Sips (Sips 1 at a time, hard swallow), Slow Rate, Alternate bites/solids and sips/liquids, Sitting upright and Remain sitting upright for 30 minutes after PO intake Supervision: 1:1 Direct Supervision Recommend Repeat Modified Barium Swallow: TBD Need for Skilled Speech Therapy Services: Yes Comment: -Train the patient in use of strategies to decrease risk for aspiration. -Ongoing assessment of diet tolerance of recommended textures. Consider distant supervision in upcoming sessions if good diet tolerance and good adherence to recommended aspiration precautions. -Train the patient in oropharyngeal exercise program to improve bolus control, pharyngeal motility, and airway closure (lingual resistance, effortful, Madhavi, Jacob). Education Completed: 1. Described result of evaluation., 2. Pt understands evaluation & agrees with goals and treatment plan. and 7. Pt requires further education on strategies & risks. Status Active ST Patient: Active Contact Information [facility] Speech Therapy:: Arcelia Mark M.A. CCC-MOTOR REBUILDER? Speech-Language Pathologist?? [facility] [address] [place] [address]? [email or web address]?? [phone]
[2024-09-30] MEDS: 0.9% Normal Saline (1000mL) 1,000 ML 75 ML IV (13:59)
--- NOTE | 2024-09-30 15:28 | CASEMGMT ---
MOSHE NIXON into pt room to discuss dc planning. Pt states she would of course return home. Therapy has not yet worked with therapy today. Pt states she has had HHC in the past through [facility] and would be open to this. Pt reports having oxygen through [facility]. She states she has a portable concentrator as well as tanks. Pt is going to have her dtr check her portable concentrator to make sure the battery is ok. Pt denies further needs at this time. MOSHE NIXON to follow.
[2024-09-30] MEDS: Gabapentin 300 MG Capsule PO (20:39)
[2024-10-01] VITALS (12 sets, daily range): BP systolic 119–140; BP diastolic 63–97; PULSE 67–125; RESP 18–25; TEMP 36.2–37; O2SAT 95–99; BMI 26.6
[2024-10-01] MEDS: Levothyroxine 25 MCG TABLET PO (05:31)
[2024-10-01 06:32] LABS: Absolute Lymphocyte Count 1.12 X10^3/uL (0.83-4.51); Basophil# 0.05 X10^3/uL; Basophil% 0.5 % (0-1); Eosinophil# 0.14 X10^3/uL; Eosinophils% 1.5 % (0-5); Hematocrit 33.1 % (37-47); Lymphocyte # 1.12 X10^3/ul (0.83-4.51); Lymphocyte % 12.3 % (19-41); Mean Corp Hgb Conc 33.2 g/dL (32-36); Mean Corpuscular Hgb 30.5 pg (27.0-32.0); Mean Corpuscular Volume 91.7 fL (81-99); Mean Platelet Vol. 10.7 fl (6.2-12.0); Monocyte# 0.46 X10^3/uL; NRBC Flagged by Analyzer 0.3 % (0-5); Neutrophil # 6.98 X10^3/uL (2.7-7.7); Neutrophil % 76.7 % (47-70); Platelet Count 194 K/mm3 (150-450); RBC Distribution Width CV 13.8 % (11.6-14.6); RBC Distribution Width SD 46.8 fl (35.1-43.9); Red Blood Count 3.61 M/mm3 (4.2-5.4); White Blood Count 9.1 K/mm3 (4.4-11.0)
[2024-10-01] MEDS: Ipratropium/Albuterol Sulfate 3 ML AMPUL.NEB INHALATION ×2 (07:16→19:35)
[2024-10-01] MEDS: Budesonide Respules 0.5 MG/2 ML AMPUL.NEB. INHALATION ×2 (07:16→19:35)
[2024-10-01 07:31] LABS: Anion Gap 17 (5-15); BUN 65 mg/dL (4-19); BUN/Creat Ratio 29.8 RATIO (10-20); Calcium,Total 8.9 mg/dL (7.6-11.0); Carbon Dioxide 16.4 mmol/L (21.0-32.0); Chloride 104 mmol/L (98-108); Creatinine, Serum 2.19 mg/dL (0.70-1.20); EST Glomerular Filtration Rate 23 (>60); Estimated Creatinine Clearance 18.43 ml/min (50-250); Glucose 110 mg/dL (70-99); Potassium 3.6 mmol/L (3.3-5.1); Sodium Level 138 mmol/L (133-145)
--- NOTE | 2024-10-01 08:57 | PCM.PN.HOSP ---
Reason for Visit Reason for Visit: Diagnoses Sepsis, unspecified organism (09/27/24) Chronic atrial fibrillation, unspecified (09/27/24) Pneumonia, unspecified organism (09/27/24) Acute and chronic respiratory failure with hypoxia (09/27/24) Subjective Subjective Patient seen breathing still remains labored. Patient was transferred to the progressive care unit from ICU Objective Data Objective Data Vital Signs: Vital Signs Temp Pulse Resp BP Pulse Ox O2 Del Method O2 Flow Rate 98.6 F 67 18 119/69 98 Nasal Cannula 4 10/01/24 05:26 10/01/24 05:26 10/01/24 05:26 10/01/24 05:26 10/01/24 05:26 10/01/24 05:26 10/01/24 05:26 FiO2 30 09/29/24 09:00 Oxygen Flow Rate (L/min) 4 Oxygen Delivery Method Nasal Cannula Weight: 64 kg Body Mass Index (BMI) 26.6 Intake & Output: Intake and Output for Last 24 Hours 09/29/24 09/30/24 10/01/24 23:59 23:59 23:59 Intake Total 2622.96 / 2622.96 296 / 296 1000 / 1000 Output Total 600 / 600 300 / 300 260 / 260 Balance 2022.96 / 2022.96 -4 / -4 740 / 740 Lab / Micro Data 10/01/24 06:25 10/01/24 06:25 Labs: Laboratory Results - last 24 hr 09/30/24 08:33: Sodium 138, Potassium 5.0, Chloride 102, Carbon Dioxide 18.3 L, Anion Gap 19 H, BUN 73 H, Creatinine 2.58 H, Estim Creat Clear Calc 15.47 L, Est GFR (MDRD) Non-Af 19 L, BUN/Creatinine Ratio 28.1 H, Glucose 88, Calcium 9.0, Phosphorus 5.4 H, Magnesium 2.4 H 09/30/24 08:57: Lactic Acid 1.4 10/01/24 06:25: WBC 9.1, RBC 3.61 L, Hgb 11.0 L, Hct 33.1 L, MCV 91.7, MCH 30.5, MCHC 33.2, RDW Std Deviation 46.8 H, RDW Coeff of Nicki 13.8, Plt Count 194, MPV 10.7, Immature Gran % (Auto) 4.000 H, Neut % (Auto) 76.7 H, Lymph % (Auto) 12.3 L, [place] % (Auto) 5.0, Eos % (Auto) 1.5, Baso % (Auto) 0.5, Absolute Neuts (auto) 7.0, Absolute Lymphs (auto) 1.12, Nucleated RBC % 0.3, Sodium 138, Potassium 3.6, Chloride 104, Carbon Dioxide 16.4 L, Anion Gap 17 H, BUN 65 H, Creatinine 2.19 H, Estim Creat Clear Calc 18.43 L, Est GFR (MDRD) Non-Af 23 L, BUN/Creatinine Ratio 29.8 H, Glucose 110 H, Calcium 8.9 Micro: Microbiology 09/27/24 20:30 Sputum, Expectorated/Coughed Gram Stain - Final 09/27/24 20:30 Sputum, Expectorated/Coughed Respiratory Culture - Preliminary Presumptive C albicans Streptococcus pneumoniae 09/27/24 20:15 Urine Catheter - Catheter Urine Culture - Final Culture exhibits no growth. 09/27/24 20:08 Mucosa - Nasopharyngeal Respiratory Panel (PCR) - Final 09/27/24 20:15 Urine Catheter - Biswas Legionella Antigen - Final 09/27/24 20:15 Urine Catheter - Biswas Streptococcus pneumoniae Antigen (M - Final 09/27/24 20:08 Mucosa - Nose SARS-CoV-2, Influenza & RSV (PCR) - Final Rhythm Strip Rhythm Strip: A-fib Rate: 183 Physical Exam Narrative GENERAL: Awake on the vent HEENT: Atraumatic; normocephalic, ET tube in place EYES; Anicteric, Normal Conjunctiva NECK; supple, normal thyroid, RESPIRATORY: Diminished to auscultation CARDIOVASCULAR: Regular S1 S2, GI: soft, normoactive bowel sounds, : No Renal angle tenderness; EXTREMITIES: No edema, no clubbing, MUSCULOSKELETAL: no muscle wasting NEURO: Awake; no lateralizing signs. SKIN: No Rash Assessment & Plan Assessment/Plan (1) Acute and chronic respiratory failure with hypoxia: (2) Chronic atrial fibrillation with RVR: (3) Sepsis: (4) Right lower lobe pneumonia: PLAN: Plan Patient is a 79-year-old lady who presented with progressive generalized weakness and fatigue. Diagnosed with acute hypoxic respiratory failure initially managed on noninvasive ventilation she however did not tolerate resulting in patient being intubated. Subsequently admitted to the intensive care unit for further management 1. Acute hypoxic respiratory failure ? Secondary to combination of pneumonia as well as acute congestive heart failure with preserved ejection fraction patient was intubated admitted to the intensive care unit consult placed to campaign consultant for vent management ? 09/30/2024; patient has successfully been weaned off the vent. Chest x-ray obtained this a.m. did showResidual bibasilar opacities, [id number]-left. Although these findings are improved since prior examination. ? 10/01/2024; patient breathing still remains labored at rest was transferred from intensive care unit to progressive care unit plan is to continue with pulmonary toileting and supplemental oxygen 2. Septic shock ? Secondary to community-acquired pneumonia patient managed with broad-spectrum antibiotic therapy. Patient was on pressors has since been weaned off response to therapy manage with serial lactic acid monitoring ? 09/30/2024; patient has been weaned off 3. Pneumonia - Secondary to streptococcal pneumonia, Blood and sputum cultures sent. Patient placed on Rocephin and Zithromax and placed on oxygen titrated to keep Pulse Ox greater than 90. Patient strep pneumo antigen came back positive in her urine 4. Acute on chronic congestive heart failure with preserved ejection fraction ? Echo obtained on 02/17/2024 from an outside hospital demonstrated EF of 57?5% with RVSP of 52 mmHg consistent with moderate pulmonary hypertension. Patient did receive treatment with furosemide 5. Chronic A-fib with RVR ? Patient was started on Cardizem drip. Patient is on systemic anticoagulation with warfarin held on admission placed on therapeutic Lovenox ? 10/01/2024 discontinued enoxaparin restarted patient warfarin 6. Acute kidney injury ? Suspected to be secondary to ischemic ATN patient apparently had some episodes of hypotension. Plan is for patient to be resuscitated with IV fluid 7. Hyperkalemia ? Secondary to patient COCO repeat potassium levels ordered and if elevated patient will receive Kayexalate did hold patient potassium supplemented ? 10/01/2024; hyperkalemia resolved 8. Rheumatoid arthritis ? Patient is on leflunomide 9. Anemia ? Secondary to chronic disorder monitoring H&H and transfuse if patient becomes symptomatic or hemoglobin falls below 7 10. Hypokalemia ? Corrected for protocol repeat labs ordered in a.m. for monitor 11. Hypothyroidism ? Patient is on levothyroxine home dose continued 12. GERD ? On PPI 13. DVT prophylaxis ? Subcu Lovenox ? Enoxaparin discontinued patient started on warfarin Time spent in the patient's overall evaluation,decision-making process, review of diagnostic data, adjustment of management, discussion with other providers, nursing nursing and ancillary staff involved in patient's care documentation, 42 . Minutes Charges/Coding Visit Charges Inpatient E&M: 36496 Subs Hosp L2
[2024-10-01] MEDS: Enoxaparin 30 MG/0.3 ML Syringe SC (09:34)
[2024-10-01] MEDS: Leflunomide 10 MG TABLET 5 MG PO (09:35)
[2024-10-01] MEDS: Fluticasone 0.05% 1 SPRAY NASAL.SRY 2 SPRAY NASAL (09:35)
[2024-10-01] MEDS: Multivitamins,Ther W-Minerals Tablet 1 TABLET PO (09:35)
[2024-10-01] MEDS: Gabapentin 300 MG Capsule PO ×2 (09:40→20:15)
[2024-10-01] MEDS: 0.9% Saline Lock 10 ML Syringe IV ×2 (09:40→20:57)
[2024-10-01] MEDS: Ceftriaxone 2 GM in 0.9% Normal Saline (50mL MB+) 50 ML IV (09:42)
[2024-10-01 10:15] LABS: Prothrombin Time (Protime)PT. 69.4 SECONDS (11.7-14.9)
[2024-10-01 10:31] LABS: International Normalized Ratio 8.1
[2024-10-01] MEDS: Pantoprazole Sodium 40 MG in 0.9% Normal Saline (100mL MB+) 100 ML 330 MG IV (10:40)
--- NOTE | 2024-10-01 15:28 | CASEMGMT ---
MOSHE NIXON into pt room to discuss DC planning. Pt denies wanting to go to SNF, states she wants HHC. Daughter in the room with Pt, states she can stay with her mom for a short period if she needs to. Pt states she has a medical alert just forgot to use it when she fell. [facility], MOSHE NIXON made the referral. Waiting on acceptance.
--- NOTE | 2024-10-01 16:20 | CASEMGMT ---
[facility] called and stated accepted pt. SOC is 10/06/24. Pt notified.
[2024-10-01] MEDS: dilTIAZem CD 120 MG Capsule PO (17:47)
[2024-10-01] MEDS: Atenolol 25 MG Tablet PO (17:47)
--- NOTE | 2024-10-01 20:02 | PCM.HOSP.N ---
Hospitalist Note Patient with crackles, HF exacerbation once component of her acute presentation, noted COCO secondary to suspected ATN with lasix hold but given current presentation will pulse dose, repeat BMP in AM already ordered, BIPAP if needed.
[2024-10-01] MEDS: Furosemide 40 MG/4 ML Vial IV (20:15)
[2024-10-01] MEDS: MELATONIN 10 MG TABLET PO (20:15)
[2024-10-01] MEDS: Phenol/Sodium Phenolate 180ML 5 SPRAY MUCOUS MEM (20:58)
[2024-10-02] VITALS (7 sets, daily range): BP systolic 108–138; BP diastolic 61–80; PULSE 64–113; RESP 16–20; TEMP 36.4–36.8; O2SAT 97–99
[2024-10-02] MEDS: Levothyroxine 25 MCG TABLET PO (06:19)
[2024-10-02] MEDS: Ipratropium/Albuterol Sulfate 3 ML AMPUL.NEB INHALATION ×3 (07:40→23:11)
[2024-10-02] MEDS: Budesonide Respules 0.5 MG/2 ML AMPUL.NEB. INHALATION (07:40)
[2024-10-02 07:50] LABS: Hematocrit 33.8 % (37-47); Hemoglobin 11.2 g/dL (12.0-15.0); Mean Corp Hgb Conc 33.1 g/dL (32-36); Mean Corpuscular Hgb 30.1 pg (27.0-32.0); Mean Corpuscular Volume 90.9 fL (81-99); Mean Platelet Vol. 10.3 fl (6.2-12.0); POSITIVE COUNT YES; POSITIVE MORPHOLOGY YES; Platelet Count 242 K/mm3 (150-450); RBC Distribution Width CV 13.6 % (11.6-14.6); RBC Distribution Width SD 45.5 fl (35.1-43.9); Red Blood Count 3.72 M/mm3 (4.2-5.4); White Blood Count 8.2 K/mm3 (4.4-11.0)
[2024-10-02 07:51] LABS: Differential Indicated MANUAL DIFF
[2024-10-02 07:58] LABS: International Normalized Ratio 4.3; Prothrombin Time (Protime)PT. 42.4 SECONDS (11.7-14.9)
--- NOTE | 2024-10-02 08:10 | PCM.PN.HOSP ---
Reason for Visit Reason for Visit: Diagnoses Sepsis, unspecified organism (09/27/24) Chronic atrial fibrillation, unspecified (09/27/24) Pneumonia, unspecified organism (09/27/24) Acute and chronic respiratory failure with hypoxia (09/27/24) Subjective Subjective Patient INR was found to be markedly elevated the day prior Coumadin was held. Objective Data Objective Data Vital Signs: Vital Signs Temp Pulse Resp BP Pulse Ox O2 Del Method O2 Flow Rate 98.3 F 83 18 108/70 97 Nasal Cannula 4 10/02/24 04:07 10/02/24 07:40 10/02/24 07:40 10/02/24 04:07 10/02/24 04:07 10/02/24 04:07 10/02/24 04:07 FiO2 30 09/29/24 09:00 Oxygen Flow Rate (L/min) 4 Oxygen Delivery Method Nasal Cannula Weight: 64 kg Body Mass Index (BMI) 26.6 Intake & Output: Intake and Output for Last 24 Hours 09/30/24 10/01/24 10/02/24 23:59 23:59 23:59 Intake Total 296 / 296 1160 / 1160 Output Total 300 / 300 2145 / 2145 Balance -4 / -4 -985 / -985 Lab / Micro Data 10/02/24 07:22 10/02/24 07:22 Labs: Laboratory Results - last 24 hr 10/01/24 06:25: PT 69.4 H, INR 8.1 H* 10/02/24 07:22: WBC 8.2, RBC 3.72 L, Hgb 11.2 L, Hct 33.8 L, MCV 90.9, MCH 30.1, MCHC 33.1, RDW Std Deviation 45.5 H, RDW Coeff of Nicki 13.6, Plt Count 242, MPV 10.3, Neut % (Auto) Not Reportable Micro: Microbiology 09/27/24 20:30 Sputum, Expectorated/Coughed Gram Stain - Final 09/27/24 20:30 Sputum, Expectorated/Coughed Respiratory Culture - Final Presumptive C albicans Streptococcus pneumoniae 09/27/24 20:15 Urine Catheter - Catheter Urine Culture - Final Culture exhibits no growth. 09/27/24 20:08 Mucosa - Nasopharyngeal Respiratory Panel (PCR) - Final 09/27/24 20:15 Urine Catheter - Biswas Legionella Antigen - Final 09/27/24 20:15 Urine Catheter - Biswas Streptococcus pneumoniae Antigen (M - Final 09/27/24 20:08 Mucosa - Nose SARS-CoV-2, Influenza & RSV (PCR) - Final Rhythm Strip Rhythm Strip: A-fib Rate: 183 Physical Exam Narrative GENERAL: cooperative HEENT: Atraumatic; normocephalic EYES; Anicteric, Normal Conjunctiva NECK; supple, normal thyroid, RESPIRATORY: Diminished to auscultation CARDIOVASCULAR: Regular S1 S2, GI: soft, normoactive bowel sounds, : No Renal angle tenderness; EXTREMITIES: No edema, no clubbing, MUSCULOSKELETAL: no muscle wasting NEURO: Awake; no lateralizing signs. SKIN: No Rash PSYCH; Flat affect Assessment & Plan Assessment/Plan (1) Acute and chronic respiratory failure with hypoxia: (2) Chronic atrial fibrillation with RVR: (3) Sepsis: (4) Right lower lobe pneumonia: PLAN: Plan Patient is a 79-year-old lady who presented with progressive generalized weakness and fatigue. Diagnosed with acute hypoxic respiratory failure initially managed on noninvasive ventilation she however did not tolerate resulting in patient being intubated. Subsequently admitted to the intensive care unit for further management 1. Acute hypoxic respiratory failure ? Secondary to combination of pneumonia as well as acute congestive heart failure with preserved ejection fraction patient was intubated admitted to the intensive care unit consult placed to explosive ordnance disposal specialist for vent management ? 09/30/2024; patient has successfully been weaned off the vent. Chest x-ray obtained this a.m. did showResidual bibasilar opacities, [id number]. Although these findings are improved since prior examination. ? 10/01/2024; patient breathing still remains labored at rest was transferred from intensive care unit to progressive care unit plan is to continue with pulmonary toileting and supplemental oxygen ? 10/02/2024;Patient remains on supplemental oxygen currently saturating mid 90s on 4 L flow per minute 2. Septic shock ? Secondary to community-acquired pneumonia patient managed with broad-spectrum antibiotic therapy. Patient was on pressors has since been weaned off response to therapy manage with serial lactic acid monitoring ? 09/30/2024; patient has been weaned off ? 10/02/2024 patient sputum cultures came back positive for Streptococcus pneumonia manage appropriately 3. Pneumonia - Secondary to streptococcal pneumonia, Blood and sputum cultures sent. Patient placed on Rocephin and Zithromax and placed on oxygen titrated to keep Pulse Ox greater than 90. Patient strep pneumo antigen came back positive in her urine 4. Acute on chronic congestive heart failure with preserved ejection fraction ? Echo obtained on 02/17/2024 from an outside hospital demonstrated EF of 57?5% with RVSP of 52 mmHg consistent with moderate pulmonary hypertension. Patient did receive treatment with furosemide 5. Chronic A-fib with RVR ? Patient was started on Cardizem drip. Patient is on systemic anticoagulation with warfarin held on admission placed on therapeutic Lovenox ? 10/01/2024 discontinued enoxaparin ? 10/02/2024; was for patient to have been resumed on warfarin however INR drawn the day prior came back elevated at 8.1. Warfarin was therefore not resumed. Repeat INR as of today is 4.3 6. Acute kidney injury ? Suspected to be secondary to ischemic ATN patient apparently had some episodes of hypotension. Plan is for patient to be resuscitated with IV fluid 7. Hyperkalemia ? Secondary to patient COCO repeat potassium levels ordered and if elevated patient will receive Kayexalate did hold patient potassium supplemented ? 10/01/2024; hyperkalemia resolved 8. Rheumatoid arthritis ? Patient is on leflunomide 9. Anemia ? Secondary to chronic disorder monitoring H&H and transfuse if patient becomes symptomatic or hemoglobin falls below 7 10. Hypokalemia ? Corrected for protocol repeat labs ordered in a.m. for monitor 11. Hypothyroidism ? Patient is on levothyroxine home dose continued 12. GERD ? On PPI 13. DVT prophylaxis ? Subcu Lovenox ? Enoxaparin discontinued patient started on warfarin ? 10/02/2024; patient not on any systemic anticoagulation given elevated iron 14. Physical deconditioning ? Requested for PT OT eval and psychiatric social worker supervisor to assist with discharge planning Time spent in the patient's overall evaluation,decision-making process, review of diagnostic data, adjustment of management, discussion with other providers, nursing nursing and ancillary staff involved in patient's care documentation, 40 . Minutes Charges/Coding Visit Charges Inpatient E&M: 70724 Subs Hosp L2
[2024-10-02 08:21] LABS: Eosinophil 2 % (0-5); Lymphocyte 16 % (19-41); Metamyelocyte 1 % (0-1); Monocyte 1 % (0-10); Myelocyte 1 % (0-0); Neutrophil-Band 2 % (0-5); Neutrophil-Segmented 77 % (47-70); Total Cells Counted 100 (MANUAL DIFF)
[2024-10-02 08:22] LABS: Platelet Estimate ADEQUATE (ADEQ); Red Cell Morphology NORM C+C NORMAL (NORM C&C)
[2024-10-02 08:23] LABS: Absolute Lymphocyte Count 1.31 X10^3/uL (0.83-4.51); Absolute Neutrophil Count 6.5 X10^3/uL (2.0-7.7); Pathologist Review May foll
[2024-10-02] MEDS: Multivitamins,Ther W-Minerals Tablet 1 TABLET PO (09:38)
[2024-10-02] MEDS: dilTIAZem CD 120 MG Capsule PO ×2 (09:38→22:21)
[2024-10-02] MEDS: Atenolol 25 MG Tablet PO ×2 (09:38→22:21)
[2024-10-02] MEDS: Fluticasone 0.05% 1 SPRAY NASAL.SRY 2 SPRAY NASAL (09:38)
[2024-10-02] MEDS: Ceftriaxone 2 GM in 0.9% Normal Saline (50mL MB+) 50 ML IV (09:45)
[2024-10-02] MEDS: Gabapentin 300 MG Capsule PO ×2 (09:45→22:21)
[2024-10-02] MEDS: Pantoprazole Sodium 40 MG in 0.9% Normal Saline (100mL MB+) 100 ML 110 MG IV (09:46)
[2024-10-02 09:47] LABS: Anion Gap 13 (5-15); BUN 54 mg/dL (4-19); BUN/Creat Ratio 34.4 RATIO (10-20); Calcium,Total 9.8 mg/dL (7.6-11.0); Chloride 102 mmol/L (98-108); Creatinine, Serum 1.56 mg/dL (0.70-1.20); EST Glomerular Filtration Rate 34 (>60); Estimated Creatinine Clearance 25.88 ml/min (50-250); Glucose 90 mg/dL (70-99); Potassium 3.6 mmol/L (3.3-5.1); Sodium Level 141 mmol/L (133-145)
[2024-10-02] MEDS: MELATONIN 10 MG TABLET PO (22:21)
[2024-10-03] VITALS (7 sets, daily range): BP systolic 117–121; BP diastolic 58–80; PULSE 63–82; RESP 18–20; TEMP 36.1–36.7; O2SAT 93–99; BMI 26.7
[2024-10-03] MEDS: Levothyroxine 25 MCG TABLET PO (05:15)
[2024-10-03] MEDS: Budesonide Respules 0.5 MG/2 ML AMPUL.NEB. INHALATION ×2 (07:33→20:51)
[2024-10-03] MEDS: Ipratropium/Albuterol Sulfate 3 ML AMPUL.NEB INHALATION ×2 (07:33→20:51)
--- NOTE | 2024-10-03 07:51 | PCM.PN.HOSP ---
Reason for Visit Reason for Visit: Diagnoses Sepsis, unspecified organism (09/27/24) Chronic atrial fibrillation, unspecified (09/27/24) Pneumonia, unspecified organism (09/27/24) Acute and chronic respiratory failure with hypoxia (09/27/24) Subjective Subjective Patient complaining of soreness in her mouth. Patient was started on nystatin. Patient also went into respiratory distress this morning was given additional dose of Lasix. Objective Data Objective Data Vital Signs: Vital Signs Temp Pulse Resp BP Pulse Ox O2 Del Method O2 Flow Rate 97 F L 72 18 120/80 93 Nasal Cannula 4 10/03/24 05:00 10/03/24 07:35 10/03/24 07:35 10/03/24 05:00 10/03/24 07:35 10/03/24 07:35 10/03/24 07:35 FiO2 30 09/29/24 09:00 Oxygen Flow Rate (L/min) 4 Oxygen Delivery Method Nasal Cannula Weight: 64.3 kg Body Mass Index (BMI) 26.7 Intake & Output: Intake and Output for Last 24 Hours 10/01/24 10/02/24 10/04/24 23:59 23:59 00:59 Intake Total 1160 / 1160 690 / 690 Output Total 2145 / 2145 500 / 750 250 / 250 Balance -985 / -985 190 / -60 -250 / -250 Lab / Micro Data 10/02/24 07:22 10/02/24 07:22 Labs: Laboratory Results - last 24 hr 10/02/24 07:22: WBC 8.2, RBC 3.72 L, Hgb 11.2 L, Hct 33.8 L, MCV 90.9, MCH 30.1, MCHC 33.1, RDW Std Deviation 45.5 H, RDW Coeff of Nicki 13.6, Plt Count 242, MPV 10.3, Neut % (Auto) Not Reportable, Absolute Neuts (auto) 6.5, Absolute Lymphs (auto) 1.31, Total Counted 100, Neutrophils % (Manual) 77 H, Band Neutrophils % 2, Lymphocytes % (Manual) 16 L, Monocytes % (Manual) 1, Eosinophils % (Manual) 2, Metamyelocytes % 1, Myelocytes % 1 H, Diff Path Review November, Platelet Estimate ADEQUATE, RBC Morphology NORM C+C, PT 42.4 H, INR 4.3 H*, Sodium 141, Potassium 3.6, Chloride 102, Carbon Dioxide 25.0, Anion Gap 13, BUN 54 H, Creatinine 1.56 H, Estim Creat Clear Calc 25.88 L, Est GFR (MDRD) Non-Af 34 L, BUN/Creatinine Ratio 34.4 H, Glucose 90, Calcium 9.8 Micro: Microbiology 09/27/24 16:45 Blood Culture (Wb) - Venous Blood Culture - Final No growth in 5 days. 09/27/24 16:16 Blood Culture (Wb) - Right Wrist Blood Culture - Final No growth in 5 days. 09/27/24 20:30 Sputum, Expectorated/Coughed Gram Stain - Final 09/27/24 20:30 Sputum, Expectorated/Coughed Respiratory Culture - Final Presumptive C albicans Streptococcus pneumoniae 09/27/24 20:15 Urine Catheter - Catheter Urine Culture - Final Culture exhibits no growth. 09/27/24 20:08 Mucosa - Nasopharyngeal Respiratory Panel (PCR) - Final 09/27/24 20:15 Urine Catheter - Biswas Legionella Antigen - Final 09/27/24 20:15 Urine Catheter - Biswas Streptococcus pneumoniae Antigen (M - Final 09/27/24 20:08 Mucosa - Nose SARS-CoV-2, Influenza & RSV (PCR) - Final Rhythm Strip Rhythm Strip: A-fib Rate: 183 Physical Exam Narrative GENERAL: cooperative HEENT: Atraumatic; normocephalic EYES; Anicteric, Normal Conjunctiva NECK; supple, normal thyroid, RESPIRATORY: Diminished to auscultation CARDIOVASCULAR: Regular S1 S2, GI: soft, normoactive bowel sounds, : No Renal angle tenderness; EXTREMITIES: No edema, no clubbing, MUSCULOSKELETAL: no muscle wasting NEURO: Awake; no lateralizing signs. SKIN: No Rash PSYCH; Flat affect Assessment & Plan Assessment/Plan (1) Acute and chronic respiratory failure with hypoxia: (2) Chronic atrial fibrillation with RVR: (3) Sepsis: (4) Right lower lobe pneumonia: PLAN: Plan Patient is a 79-year-old lady who presented with progressive generalized weakness and fatigue. Diagnosed with acute hypoxic respiratory failure initially managed on noninvasive ventilation she however did not tolerate resulting in patient being intubated. Subsequently admitted to the intensive care unit for further management 1. Acute hypoxic respiratory failure ? Secondary to combination of pneumonia as well as acute congestive heart failure with preserved ejection fraction patient was intubated admitted to the intensive care unit consult placed to produce team member for vent management ? 09/30/2024; patient has successfully been weaned off the vent. Chest x-ray obtained this a.m. did showResidual bibasilar opacities, [id number]. Although these findings are improved since prior examination. ? 10/01/2024; patient breathing still remains labored at rest was transferred from intensive care unit to progressive care unit plan is to continue with pulmonary toileting and supplemental oxygen ? 10/02/2024;Patient remains on supplemental oxygen currently saturating mid 90s on 4 L flow per minute ? 10/03/2024; patient went into respiratory distress this a.m. additional dose of Lasix was given. 2. Septic shock ? Secondary to community-acquired pneumonia patient managed with broad-spectrum antibiotic therapy. Patient was on pressors has since been weaned off response to therapy manage with serial lactic acid monitoring ? 09/30/2024; patient has been weaned off ? 10/02/2024 patient sputum cultures came back positive for Streptococcus pneumonia manage appropriately 3. Pneumonia - Secondary to streptococcal pneumonia, Blood and sputum cultures sent. Patient placed on Rocephin and Zithromax and placed on oxygen titrated to keep Pulse Ox greater than 90. Patient strep pneumo antigen came back positive in her urine 4. Acute on chronic congestive heart failure with preserved ejection fraction ? Echo obtained on 02/17/2024 from an outside hospital demonstrated EF of 57?5% with RVSP of 52 mmHg consistent with moderate pulmonary hypertension. Patient did receive treatment with furosemide ? 10/03/2024; patient placed on scheduled furosemide 5. Chronic A-fib with RVR ? Patient was started on Cardizem drip. Patient is on systemic anticoagulation with warfarin held on admission placed on therapeutic Lovenox ? 10/01/2024 discontinued enoxaparin ? 10/02/2024; was for patient to have been resumed on warfarin however INR drawn the day prior came back elevated at 8.1. Warfarin was therefore not resumed. Repeat INR as of today is 4.3 6. Acute kidney injury ? Suspected to be secondary to ischemic ATN patient apparently had some episodes of hypotension. Plan is for patient to be resuscitated with IV fluid 7. Hyperkalemia ? Secondary to patient COCO repeat potassium levels ordered and if elevated patient will receive Kayexalate did hold patient potassium supplemented ? 10/01/2024; hyperkalemia resolved 8. Rheumatoid arthritis ? Patient is on leflunomide 9. Anemia ? Secondary to chronic disorder monitoring H&H and transfuse if patient becomes symptomatic or hemoglobin falls below 7 10. Hypokalemia ? Corrected for protocol repeat labs ordered in a.m. for monitor 11. Hypothyroidism ? Patient is on levothyroxine home dose continued 12. GERD ? On PPI 13. DVT prophylaxis ? Subcu Lovenox ? Enoxaparin discontinued patient started on warfarin ? 10/02/2024; patient not on any systemic anticoagulation given elevated iron 14. Physical deconditioning ? Requested for PT OT eval and social psychologist to assist with discharge planning 15. Suspected oral candidiasis -patient started on nystatin swish and swallow Time spent in the patient's overall evaluation,decision-making process, review of diagnostic data, adjustment of management, discussion with other providers, nursing nursing and ancillary staff involved in patient's care documentation, 40 . Minutes Charges/Coding Visit Charges Inpatient E&M: 79304 Subs Hosp L2
[2024-10-03] MEDS: Furosemide 100 MG/10 ML Vial 60 MG IV (07:59)
[2024-10-03 08:48] LABS: Prothrombin Time (Protime)PT. 31.5 SECONDS (11.7-14.9)
[2024-10-03] MEDS: Multivitamins,Ther W-Minerals Tablet 1 TABLET PO (09:50)
[2024-10-03] MEDS: Gabapentin 300 MG Capsule PO ×2 (09:50→21:25)
[2024-10-03] MEDS: dilTIAZem CD 120 MG Capsule PO ×2 (09:50→21:25)
[2024-10-03] MEDS: Pantoprazole Sodium 40 MG in 0.9% Normal Saline (100mL MB+) 100 ML 330 MG IV (09:51)
[2024-10-03] MEDS: Fluticasone 0.05% 1 SPRAY NASAL.SRY 2 SPRAY NASAL (09:52)
[2024-10-03] MEDS: Ceftriaxone 2 GM in 0.9% Normal Saline (50mL MB+) 50 ML IV (09:52)
[2024-10-03] MEDS: Atenolol 25 MG Tablet PO ×2 (09:53→21:25)
[2024-10-03] MEDS: NYSTATIN 500,000 UNIT/5 ML UDC 500000 UNIT PO ×3 (14:48→21:25)
[2024-10-03] MEDS: Furosemide 40 MG Tablet PO (17:46)
[2024-10-03] MEDS: MELATONIN 10 MG TABLET PO (21:25)
[2024-10-04] VITALS (7 sets, daily range): BP systolic 109–117; BP diastolic 54–72; PULSE 68–74; RESP 16–18; TEMP 36.6–36.9; O2SAT 93–98; BMI 25.6
[2024-10-04] MEDS: 0.9% Saline Lock 10 ML Syringe IV (03:40)
[2024-10-04] MEDS: Levothyroxine 25 MCG TABLET PO (03:40)
--- NOTE | 2024-10-04 08:17 | PCM.PN.HOSP ---
Reason for Visit Reason for Visit: Diagnoses Sepsis, unspecified organism (09/27/24) Chronic atrial fibrillation, unspecified (09/27/24) Pneumonia, unspecified organism (09/27/24) Acute and chronic respiratory failure with hypoxia (09/27/24) Subjective Subjective Patient seen back to her baseline and is requesting to be discharged home Objective Data Objective Data Vital Signs: Vital Signs Temp Pulse Resp BP Pulse Ox O2 Del Method O2 Flow Rate 98.4 F 68 18 117/72 97 Nasal Cannula 4 10/04/24 03:40 10/04/24 03:40 10/04/24 03:40 10/04/24 03:40 10/04/24 03:40 10/04/24 03:40 10/04/24 03:40 FiO2 30 09/29/24 09:00 Oxygen Flow Rate (L/min) 4 Oxygen Delivery Method Nasal Cannula Weight: 61.6 kg Body Mass Index (BMI) 25.6 Intake & Output: Intake and Output for Last 24 Hours 10/02/24 10/04/24 10/04/24 23:59 00:59 23:59 Intake Total 690 / 690 690 / 690 Output Total 500 / 750 1600 / 2100 900 / 900 Balance 190 / -60 -910 / -1410 -900 / -900 Lab / Micro Data 10/04/24 06:27 10/04/24 06:27 Labs: Laboratory Results - last 24 hr 10/03/24 07:46: PT 31.5 H, INR 3.0 10/04/24 06:27: PT 23.0 H, INR 2.0 Micro: Microbiology 09/27/24 16:45 Blood Culture (Wb) - Venous Blood Culture - Final No growth in 5 days. 09/27/24 16:16 Blood Culture (Wb) - Right Wrist Blood Culture - Final No growth in 5 days. 09/27/24 20:30 Sputum, Expectorated/Coughed Gram Stain - Final 09/27/24 20:30 Sputum, Expectorated/Coughed Respiratory Culture - Final Presumptive C albicans Streptococcus pneumoniae 09/27/24 20:15 Urine Catheter - Catheter Urine Culture - Final Culture exhibits no growth. 09/27/24 20:08 Mucosa - Nasopharyngeal Respiratory Panel (PCR) - Final 09/27/24 20:15 Urine Catheter - Biswas Legionella Antigen - Final 09/27/24 20:15 Urine Catheter - Biswas Streptococcus pneumoniae Antigen (M - Final 09/27/24 20:08 Mucosa - Nose SARS-CoV-2, Influenza & RSV (PCR) - Final Rhythm Strip Rhythm Strip: A-fib Rate: 183 Physical Exam Narrative GENERAL: cooperative HEENT: Atraumatic; normocephalic EYES; Anicteric, Normal Conjunctiva NECK; supple, normal thyroid, RESPIRATORY: Diminished to auscultation CARDIOVASCULAR: Regular S1 S2, GI: soft, normoactive bowel sounds, : No Renal angle tenderness; EXTREMITIES: No edema, no clubbing, MUSCULOSKELETAL: no muscle wasting NEURO: Awake; no lateralizing signs. SKIN: No Rash PSYCH; Flat affect Assessment & Plan Assessment/Plan (1) Acute and chronic respiratory failure with hypoxia: (2) Chronic atrial fibrillation with RVR: (3) Sepsis: (4) Right lower lobe pneumonia: PLAN: Plan Patient is a 79-year-old lady who presented with progressive generalized weakness and fatigue. Diagnosed with acute hypoxic respiratory failure initially managed on noninvasive ventilation she however did not tolerate resulting in patient being intubated. Subsequently admitted to the intensive care unit for further management 1. Acute hypoxic respiratory failure ? Secondary to combination of pneumonia as well as acute congestive heart failure with preserved ejection fraction patient was intubated admitted to the intensive care unit consult placed to territory sales consultant for vent management ? 09/30/2024; patient has successfully been weaned off the vent. Chest x-ray obtained this a.m. did showResidual bibasilar opacities, [id number]-left. Although these findings are improved since prior examination. ? 10/01/2024; patient breathing still remains labored at rest was transferred from intensive care unit to progressive care unit plan is to continue with pulmonary toileting and supplemental oxygen ? 10/02/2024;Patient remains on supplemental oxygen currently saturating mid 90s on 4 L flow per minute ? 10/03/2024; patient went into respiratory distress this a.m. additional dose of Lasix was given. ? 10/04/2024; patient back to her baseline regarding oxygen requirements patient will be assessed for possible discharge 2. Septic shock ? Secondary to community-acquired pneumonia patient managed with broad-spectrum antibiotic therapy. Patient was on pressors has since been weaned off response to therapy manage with serial lactic acid monitoring ? 09/30/2024; patient has been weaned off ? 10/02/2024 patient sputum cultures came back positive for Streptococcus pneumonia manage appropriately 3. Pneumonia - Secondary to streptococcal pneumonia, Blood and sputum cultures sent. Patient placed on Rocephin and Zithromax and placed on oxygen titrated to keep Pulse Ox greater than 90. Patient strep pneumo antigen came back positive in her urine 4. Acute on chronic congestive heart failure with preserved ejection fraction ? Echo obtained on 02/17/2024 from an outside hospital demonstrated EF of 57?5% with RVSP of 52 mmHg consistent with moderate pulmonary hypertension. Patient did receive treatment with furosemide ? 10/03/2024; patient placed on scheduled furosemide 5. Chronic A-fib with RVR ? Patient was started on Cardizem drip. Patient is on systemic anticoagulation with warfarin held on admission placed on therapeutic Lovenox ? 10/01/2024 discontinued enoxaparin ? 10/02/2024; was for patient to have been resumed on warfarin however INR drawn the day prior came back elevated at 8.1. Warfarin was therefore not resumed. Repeat INR as of today is 4.3 ? 10/04/2024; INR down to 2.0 6. Acute kidney injury ? Suspected to be secondary to ischemic ATN patient apparently had some episodes of hypotension. Plan is for patient to be resuscitated with IV fluid 7. Hyperkalemia ? Secondary to patient COCO repeat potassium levels ordered and if elevated patient will receive Kayexalate did hold patient potassium supplemented ? 10/01/2024; hyperkalemia resolved 8. Rheumatoid arthritis ? Patient is on leflunomide 9. Anemia ? Secondary to chronic disorder monitoring H&H and transfuse if patient becomes symptomatic or hemoglobin falls below 7 10. Hypokalemia ? Corrected for protocol repeat labs ordered in a.m. for monitor 11. Hypothyroidism ? Patient is on levothyroxine home dose continued 12. GERD ? On PPI 13. DVT prophylaxis ? Subcu Lovenox ? Enoxaparin discontinued patient started on warfarin ? 10/02/2024; patient not on any systemic anticoagulation given elevated iron 14. Physical deconditioning ? Requested for PT OT eval and social service director to assist with discharge planning 15. Suspected oral candidiasis -patient started on nystatin swish and swallow 16. Hypokalemia Corrected per protocol Time spent in the patient's overall evaluation,decision-making process, review of diagnostic data, adjustment of management, discussion with other providers, nursing nursing and ancillary staff involved in patient's care documentation, 40 . Minutes Charges/Coding Visit Charges Inpatient E&M: 55118 Subs Hosp L2
[2024-10-04] MEDS: Budesonide Respules 0.5 MG/2 ML AMPUL.NEB. INHALATION (08:22)
[2024-10-04] MEDS: Ipratropium/Albuterol Sulfate 3 ML AMPUL.NEB INHALATION ×2 (08:22→13:50)
[2024-10-04 08:36] LABS: Differential Indicated MANUAL DIFF; Hematocrit 31.2 % (37-47); Hemoglobin 10.3 g/dL (12.0-15.0); Mean Corpuscular Hgb 30.2 pg (27.0-32.0); Mean Corpuscular Volume 91.5 fL (81-99); Mean Platelet Vol. 10.5 fl (6.2-12.0); POSITIVE COUNT YES; POSITIVE MORPHOLOGY YES; Platelet Count 263 K/mm3 (150-450); RBC Distribution Width CV 13.5 % (11.6-14.6); RBC Distribution Width SD 45.1 fl (35.1-43.9); Red Blood Count 3.41 M/mm3 (4.2-5.4); White Blood Count 6.6 K/mm3 (4.4-11.0)
[2024-10-04 09:28] LABS: Lymphocyte 15 % (19-41); Metamyelocyte 1 % (0-1); Monocyte 15 % (0-10); Myelocyte 1 % (0-0); Neutrophil-Band 2 % (0-5); Neutrophil-Segmented 66 % (47-70); Platelet Estimate ADEQUATE (ADEQ); Red Cell Morphology NORM C+C NORMAL (NORM C&C); Total Cells Counted 100 (MANUAL DIFF)
[2024-10-04 09:29] LABS: Absolute Neutrophil Count 4.5 X10^3/uL (2.0-7.7); Pathologist Review May foll
[2024-10-04] MEDS: dilTIAZem CD 120 MG Capsule PO (09:44)
[2024-10-04] MEDS: Furosemide 40 MG Tablet PO (09:44)
[2024-10-04] MEDS: Fluticasone 0.05% 1 SPRAY NASAL.SRY 2 SPRAY NASAL (09:44)
[2024-10-04] MEDS: Multivitamins,Ther W-Minerals Tablet 1 TABLET PO (09:44)
[2024-10-04] MEDS: Pantoprazole Sodium 40 MG in 0.9% Normal Saline (100mL MB+) 100 ML 330 MG IV (09:45)
[2024-10-04] MEDS: Ceftriaxone 2 GM in 0.9% Normal Saline (50mL MB+) 50 ML IV (09:45)
[2024-10-04] MEDS: Gabapentin 300 MG Capsule PO (09:45)
[2024-10-04] MEDS: NYSTATIN 500,000 UNIT/5 ML UDC 500000 UNIT PO ×2 (09:45→13:01)
[2024-10-04 09:54] LABS: Anion Gap 15 (5-15); BUN 41 mg/dL (4-19); BUN/Creat Ratio 36.5 RATIO (10-20); Calcium,Total 9.3 mg/dL (7.6-11.0); Carbon Dioxide 27.7 mmol/L (21.0-32.0); Chloride 96 mmol/L (98-108); Creatinine, Serum 1.13 mg/dL (0.70-1.20); EST Glomerular Filtration Rate 50 (>60); Estimated Creatinine Clearance 35.09 ml/min (50-250); Glucose 95 mg/dL (70-99); Magnesium 1.4 mg/dL (1.5-2.2); Phosphorus 3.7 mg/dL (2.7-4.5); Potassium 3.2 mmol/L (3.3-5.1); Sodium Level 139 mmol/L (133-145)
--- NOTE | 2024-10-04 10:34 | DS.PCM_ITS ---
Providers Date of Admission: 09/27/24 Date of Discharge: 10/04/24 Primary Care Physician: Dr. Tasneem Beck MD Consultations 09/27/24 23:46 Consult: Supervisor Conditioning Yard / Pulmonary Medicine Routine Consulting Provider: Rad Chao Reason for Consult: acute respiratory failure EMERGENT Consult: No MD Notified: Yes Date Notified: 09/28/24 Time Notified: 06:09 Method of Notification: Text Reason For Visit: SEPSIS SUSPECTED SECONDARY TO CAP Diagnosis Discharge Diagnosis (1) Acute and chronic respiratory failure with hypoxia: Status: Chronic Code(s): J96.21 - Acute and chronic respiratory failure with hypoxia (2) Chronic atrial fibrillation with RVR: Status: Chronic Code(s): I48.20 - Chronic atrial fibrillation, unspecified (3) Sepsis: Status: Acute Code(s): A41.9 - Sepsis, unspecified organism (4) Right lower lobe pneumonia: Status: Acute Code(s): J18.9 - Pneumonia, unspecified organism Plan Patient is a 79-year-old lady who presented with progressive generalized weakness and fatigue. Diagnosed with acute hypoxic respiratory failure initially managed on noninvasive ventilation she however did not tolerate resulting in patient being intubated. Subsequently admitted to the intensive care unit for further management 1. Acute hypoxic respiratory failure ? Secondary to combination of pneumonia as well as acute congestive heart failure with preserved ejection fraction patient was intubated admitted to the intensive care unit consult placed to jewelry mold maker for vent management ? 09/30/2024; patient has successfully been weaned off the vent. Chest x-ray obtained this a.m. did showResidual bibasilar opacities, gahei-[id number]-left. Although these findings are improved since prior examination. ? 10/01/2024; patient breathing still remains labored at rest was transferred from intensive care unit to progressive care unit plan is to continue with pulmonary toileting and supplemental oxygen ? 10/02/2024;Patient remains on supplemental oxygen currently saturating mid 90s on 4 L flow per minute ? 10/03/2024; patient went into respiratory distress this a.m. additional dose of Lasix was given. ? 10/04/2024; patient back to her baseline regarding oxygen requirements patient will be assessed for possible discharge 2. Septic shock ? Secondary to community-acquired pneumonia patient managed with broad-spectrum antibiotic therapy. Patient was on pressors has since been weaned off response to therapy manage with serial lactic acid monitoring ? 09/30/2024; patient has been weaned off ? 10/02/2024 patient sputum cultures came back positive for Streptococcus pneumonia manage appropriately 3. Pneumonia - Secondary to streptococcal pneumonia, Blood and sputum cultures sent. Patient placed on Rocephin and Zithromax and placed on oxygen titrated to keep Pulse Ox greater than 90. Patient strep pneumo antigen came back positive in her urine 4. Acute on chronic congestive heart failure with preserved ejection fraction ? Echo obtained on 02/17/2024 from an outside hospital demonstrated EF of 57?5% with RVSP of 52 mmHg consistent with moderate pulmonary hypertension. Patient did receive treatment with furosemide ? 10/03/2024; patient placed on scheduled furosemide 5. Chronic A-fib with RVR ? Patient was started on Cardizem drip. Patient is on systemic anticoagulation with warfarin held on admission placed on therapeutic Lovenox ? 10/01/2024 discontinued enoxaparin ? 10/02/2024; was for patient to have been resumed on warfarin however INR drawn the day prior came back elevated at 8.1. Warfarin was therefore not resumed. Repeat INR as of today is 4.3 ? 10/04/2024; INR down to 2.0 6. Acute kidney injury ? Suspected to be secondary to ischemic ATN patient apparently had some episodes of hypotension. Plan is for patient to be resuscitated with IV fluid 7. Hyperkalemia ? Secondary to patient COCO repeat potassium levels ordered and if elevated patient will receive Kayexalate did hold patient potassium supplemented ? 10/01/2024; hyperkalemia resolved 8. Rheumatoid arthritis ? Patient is on leflunomide 9. Anemia ? Secondary to chronic disorder monitoring H&H and transfuse if patient becomes symptomatic or hemoglobin falls below 7 10. Hypokalemia ? Corrected for protocol repeat labs ordered in a.m. for monitor 11. Hypothyroidism ? Patient is on levothyroxine home dose continued 12. GERD ? On PPI 13. DVT prophylaxis ? Subcu Lovenox ? Enoxaparin discontinued patient started on warfarin ? 10/02/2024; patient not on any systemic anticoagulation given elevated iron 14. Physical deconditioning ? Requested for PT OT eval and social media coordinator to assist with discharge planning 15. Suspected oral candidiasis -patient started on nystatin swish and swallow 16. Hypokalemia Corrected per protocol Time spent in the patient's overall evaluation,decision-making process, review of diagnostic data, adjustment of management, discussion with other providers, nursing nursing and ancillary staff involved in patient's care documentation, 40 . Minutes Medications at Discharge Home Medications zolpidem 10 mg tablet 10 mg PO QHS PRN sleep 03/13/18 gabapentin 300 mg capsule 300 mg PO BID pain 09/15/20 acetaminophen 500 mg tablet 1,000 mg PO DAILY PRN PRN Pain 1-10 Or Fever 09/25/20 coenzyme Q10 100 mg capsule 100 mg PO DAILY SUPPLEMENT 09/25/20 levothyroxine 25 mcg tablet 25 mcg PO DAILY THYROID 09/25/20 multivitamin with minerals 1 tab PO DAILY supplement 09/25/20 warfarin 1 mg tablet 1 mg PO DAILY Blood thinner 10/19/21 atenolol 25 mg tablet 25 mg PO BID HEART #60 tabs 10/22/21 pantoprazole 40 mg tablet,delayed release (Protonix) 40 mg PO DAILY GERD 04/22/22 Nebulizer machine #1 ea 05/08/23 leflunomide 10 mg tablet 5 mg PO DAILY Arthritis 05/08/23 fluticasone fur. 100 mcg-umeclid 62.5 mcg-vilant 25 mcg inhalat.powder (Trelegy Ellipta) 1 inh inhalation Q24H lungs #60 ea 09/12/23 diltiazem HCl 180 mg capsule,extended release 24 hr 180 mg PO QDAY heart rate 11/18/23 empagliflozin 10 mg tablet (Jardiance) 10 mg PO QDAY DM 11/18/23 metolazone 2.5 mg tablet 2.5 mg PO Q OTHER DAY PRN swelling 11/18/23 furosemide 40 mg tablet 40 mg PO BID Swelling #60 tabs 12/26/23 hydrocodone-acetaminophen 5-325mg 5mg-325mg 1 tab PO Q8H PRN PRN pain 05/19/24 potassium chloride 20 mEq tablet,extended release(part/cryst) 20 meq PO BID supplement 05/19/24 fluticasone propionate 50 mcg/actuation nasal spray,suspension (Flonase Allergy Relief) 2 spray intranasal QDAY PRN Allergies 08/10/24 cefdinir 300 mg capsule 300 mg PO BID #10 caps 10/04/24 guaifenesin 600 mg tablet, extended release 12 hr (Mucinex) 1,200 mg (2 x 600 mg) PO BID #20 tabs 10/04/24 magnesium chloride 64 mg (magnesium chloride) tablet,delayed release (Mag 64) 128 mg (2 x 64 mg) PO BID #14 tabs 10/04/24 potassium chloride 20 mEq tablet,extended release(part/cryst) 20 meq PO DAILY #7 tabs 10/04/24 Physical Exam Narrative GENERAL: cooperative HEENT: Atraumatic; normocephalic EYES; Anicteric, Normal Conjunctiva NECK; supple, normal thyroid, RESPIRATORY: Diminished to auscultation CARDIOVASCULAR: Regular S1 S2, GI: soft, normoactive bowel sounds, : No Renal angle tenderness; EXTREMITIES: No edema, no clubbing, MUSCULOSKELETAL: no muscle wasting NEURO: Awake; no lateralizing signs. SKIN: No Rash PSYCH; Flat affect Weight / BMI Weight Weight: 61.6 kg Body Mass Index (BMI) 25.6 ABG / Lab / Microbiology Data 10/04/24 06:27 10/04/24 06:27 Laboratory: Laboratory Results - last 24 hr 10/04/24 06:27: WBC 6.6, RBC 3.41 L, Hgb 10.3 L, Hct 31.2 L, MCV 91.5, MCH 30.2, MCHC 33.0, RDW Std Deviation 45.1 H, RDW Coeff of Nicki 13.5, Plt Count 263, MPV 10.5, Neut % (Auto) Not Reportable, Absolute Neuts (auto) 4.5, Absolute Lymphs (auto) 1.00, Total Counted 100, Neutrophils % (Manual) 66, Band Neutrophils % 2, Lymphocytes % (Manual) 15 L, Monocytes % (Manual) 15 H, Metamyelocytes % 1, M yelocytes % 1 H, Diff Path Review November, Platelet Estimate ADEQUATE, RBC Morphology NORM C+C, PT 23.0 H, INR 2.0, Sodium 139, Potassium 3.2 L, Chloride 96 L, Carbon Dioxide 27.7, Anion Gap 15, BUN 41 H, Creatinine 1.13, Estim Creat Clear Calc 35.09 L, Est GFR (MDRD) Non-Af 50 L, BUN/Creatinine Ratio 36.5 H, Glucose 95, Calcium 9.3, Phosphorus 3.7, Magnesium 1.4 L Microbiology: Microbiology 09/27/24 16:45 Blood Culture (Wb) - Venous Blood Culture - Final No growth in 5 days. 09/27/24 16:16 Blood Culture (Wb) - Right Wrist Blood Culture - Final No growth in 5 days. 09/27/24 20:30 Sputum, Expectorated/Coughed Gram Stain - Final 09/27/24 20:30 Sputum, Expectorated/Coughed Respiratory Culture - Final Presumptive C albicans Streptococcus pneumoniae 09/27/24 20:15 Urine Catheter - Catheter Urine Culture - Final Culture exhibits no growth. 09/27/24 20:08 Mucosa - Nasopharyngeal Respiratory Panel (PCR) - Final 09/27/24 20:15 Urine Catheter - [place] Legionella Antigen - Final 09/27/24 20:15 Urine Catheter - [place] Streptococcus pneumoniae Antigen (M - Final 09/27/24 20:08 Mucosa - Nose SARS-CoV-2, Influenza & RSV (PCR) - Final D/C Instructions Discharge Diet: No restrictions Discharge Activity: Return to Normal Activity Call your doctor if you observe: Fever of 101 or Higher, Shortness of breath, Fainting spells and Chest pain DC O2, CPAP, BIPAP Needs PSN CPAP & BiPAP: BiPAP & CPAP Settings per PSN Mode BiPAP 09/27/24 19:04 Bipap Delivery Device Face Mask 09/27/24 19:04 BiPAP Inspiratory Pressure 12 09/27/24 19:04 BiPAP Expiratory Pressure 6 09/27/24 19:04 BiPAP Rate 14 09/27/24 19:04 Fraction of Inspired Oxygen ( 30 09/29/24 09:00 FIO2) Home O2 Discharge instructions: Yes Type of respiratory needs?: Oxygen Oxygen frequency: Continuous Continuous oxygen liters per minute: 4 DC home with Oxygen: Yes Home O2 MD Review: I have reviewed the oxygen testing, and the patient qualifies for home oxygen equipment and portability. The patient is mobile in the home and the community. Meaningful Use Info Meaningful Use Meaningful Use Diagnoses (Choose all that apply): CHF CHF MAI/ARB ordered at discharge?: No Reason MAI/ARB not ordered?: Not indicated Documented LVEF (%): 60 Ischemic Stroke Statin Dosing Therapy Reference: STATIN DOSE THERAPY REFERENCE: * Patients > 75 years receive moderate or high dose statin therapy. * Patients 75 years or YOUNGER should receive HIGH intensity statin dose unless contraindicated. You will be required to document reason for non-treatment if statin daily dose does not meet guidelines. HIGH DOSE STATIN THERAPY DAILY Atorvastatin > than or = to 40 mg Rosuvastatin > than or = to 20 mg Amlodipine + Atorvastatin > than or = to 2.5/40 mg Ezetimibe + Simvastatin 10/80 mg Simvastatin 80mg Discharge Plan Admission Admit Date/Time: 09/27/24 17:39 Attending Provider: Getachew Arias Primary Care Provider: Tasneem Beck Consulting Providers: William Irby; Ck Crane Discharge Orders/Prescriptions Prescriptions: New potassium chloride 20 mEq Tablet,Er Particles/Crystals 20 meq PO DAILY Qty: 7 0RF magnesium chloride [Mag 64] 64 mg Tablet,Delayed Release (Dr/Ec) 128 mg PO BID Qty: 14 0RF cefdinir 300 mg capsule 300 mg PO BID Qty: 10 0RF guaifenesin [Mucinex] 600 mg tablet extended release 12hr 1,200 mg PO BID Qty: 20 0RF Continued gabapentin 300 mg capsule 300 mg PO BID pantoprazole [Protonix] 40 mg tablet,delayed release (DR/EC) 40 mg PO DAILY leflunomide 10 mg tablet 5 mg PO DAILY Patient Comments: Take ONE-HALF TABLET BY MOUTH DAILY (DME) Nebulizer machine See Rx Instructions .ROUTE .MEDSUPPLY Qty: 1 0RF Rx Instructions: As directed metolazone 2.5 mg tablet 2.5 mg PO Q OTHER DAY PRN (Reason: swelling) diltiazem HCl 180 mg capsule,extended release 24hr 180 mg PO QDAY Patient Comments: pt states she takes bid Jardiance 10 mg tablet 10 mg PO QDAY fluticasone propionate [Flonase Allergy Relief] 50 mcg/actuation spray,suspension 2 spray intranasal QDAY PRN (Reason: Allergies) Rx Instructions: administer into each nostril zolpidem 10 mg tablet 10 mg PO QHS PRN (Reason: sleep) Patient Comments: SLEEPING PILL acetaminophen 500 MG tablet 1,000 mg PO DAILY PRN PRN (Reason: Pain 1-10 Or Fever) multivitamin with minerals 1 EACH tablet 1 tab PO DAILY coenzyme Q10 100 MG capsule 100 mg PO DAILY levothyroxine 25 MCG tablet 25 mcg PO DAILY potassium chloride 20 mEq tablet,ER particles/crystals 20 meq PO BID hydrocodone-acetaminophen 5-325 mg tablet 1 tab PO Q8H PRN PRN (Reason: pain) warfarin 1 mg tablet 1 mg PO DAILY Protocol: Dose Management Condition: Friday Dose/Route: 1 mg Instruction: 1 x 1 mg tablet Condition: Friday Dose/Route: 0 mg Instruction: 0 tablets Condition: Friday Dose/Route: 0.5 mg Instruction: 0.5 x 1 mg tablets Condition: Friday Dose/Route: 1 mg Instruction: 1 x 1 mg tablet Condition: Dose/Route: 0.5 mg Instruction: 0.5 x 1 mg tablets Condition: Friday Dose/Route: 1 mg Instruction: 1 x 1 mg tablet Condition: Friday Dose/Route: 0.5 mg Instruction: 0.5 x 1 mg tablets Protocol Text: Adjustment Start Date: Friday05/06/22 INR Value: 3.6 INR Date: 05/06/22 Recheck Date: 05/13/22 Rx Instructions: Managed by Dr. Beck atenolol 25 mg tablet 25 mg PO BID Qty: 60 11RF Trelegy Ellipta 100-62.5-25 mcg blister with device 1 inh INHALATION Q24H Qty: 60 11RF furosemide 40 mg tablet 40 mg PO BID Qty: 60 11RF Referrals / Follow Up: Tasneem Beck MD [Primary Care Provider] - Within 1 Week Disposition Disposition (needs filled in before D/C Order can be placed): Home Health Service Charges/Coding Visit Charges Inpatient E&M: 80553 Disch Hosp >30min
[2024-10-04] MEDS: Potassium Chloride Oral Tablet 20 MEQ 40 MEQ PO (11:00)
--- NOTE | 2024-10-04 11:03 | NURSING ---
mag weber not on unit for pt administration
--- NOTE | 2024-10-04 11:12 | CASEMGMT ---
MOSHE NIXON follow-up: Order for discharge received for this date. This RN CM met with pt face to face. Pt sitting up in recliner, O2 at 3.5l/min in place. Pt states she is aware of her discharge today and states her daughter will be able to pick her up. Pt states her POC is in her car that her daughter will be driving. Pt states she has other portable tanks if needed. Pt remains agreeable to [facility] at discharge including PT/OT and SN services with SOC date of Friday 10/06. Call placed to Phuong at [facility] who confirms pt is scheduled for SOC on 10/06. Pt states her daughter will be staying with her for a couple of days when she returns home to help her. Pt denies any additional needs at discharge. Home O2 testing pending. Velasquez Gonzales RN [facility]
[2024-10-04] MEDS: Magnesium Sulfate 2 GM in Dextrose 5%-Water (100mL Bag) 100 ML IV (12:00)
[2024-10-04] MEDS: Magnesium Chloride 64 MG Delay Rel.Tablet 128 MG PO (13:00)
== END 2024-10-04 18:02 | disposition home health service (06) | DRG 871 ==
LOC: ED 17:13 → ICU 09-28 07:00 → PCU 10-01 00:10
PROVIDERS: Family Medicine; Internal Medicine Critical Care Medicine; Admitting Provider Hospitalist; Emergency Provider Emergency Medicine; PCP Internal Medicine; Visit Provider Internal Medicine
DX: A41.9 Sepsis, unspecified organism (principal); R65.21 Severe sepsis with septic shock; I50.33 Acute on chronic diastolic (congestive) heart failure; J96.01 Acute respiratory failure with hypoxia; J13 Pneumonia due to Streptococcus pneumoniae; B37.0 Candidal stomatitis; J44.0 Chronic obstructive pulmonary disease with (acute) lower respiratory infection; I48.21 Permanent atrial fibrillation; J44.1 Chronic obstructive pulmonary disease with (acute) exacerbation; N17.9 Acute kidney failure, unspecified; I11.0 Hypertensive heart disease with heart failure; M06.9 Rheumatoid arthritis, unspecified; E03.9 Hypothyroidism, unspecified; E78.5 Hyperlipidemia, unspecified; E87.6 Hypokalemia; K21.9 Gastro-esophageal reflux disease without esophagitis; E87.5 Hyperkalemia; G89.29 Other chronic pain; Z87.891 Personal history of nicotine dependence; Z79.01 Long term (current) use of anticoagulants; Z79.890 Hormone replacement therapy; Z79.899 Other long term (current) drug therapy; R79.1 Abnormal coagulation profile; Z79.631 Long term (current) use of antimetabolite agent
CPT/HCPCS: 31500; 31720; 36415; 36556; 36600; 70450; 71045; 74230; 80048; 80053; 81001; 82550; 82803; 83605; 83735; 83880; 84100; 84145; 84443; 84478; 84484; 85025; 85027; 85610; 87040; 87070; 87077; 87086; 87186; 87205; 87449; 87631; 87633; 92526; 92610; 92611; 92950; 93005; 94002; 94003; 94640; 94660; 94668; 94762; 97110; 97116; 97163; 97166; 97530; 97535; 97802; 97803; 99285; A4216; J0696; J1940; J2405

== ENCOUNTER → 2024-11-16 | Outpatient (CLI) | payer MEDICARE, SELFPAY ==
[2024-11-16 12:25] LABS: Absolute Lymphocyte Count 2.51 X10^3/uL (0.83-4.51); Absolute Neutrophil Count 4.1 X10^3/uL (2.0-7.7); Basophil# 0.04 X10^3/uL; Basophil% 0.5 % (0-1); Eosinophil# 0.53 X10^3/uL; Eosinophils% 6.6 % (0-5); Hematocrit 37.7 % (37-47); Hemoglobin 12.1 g/dL (12.0-15.0); Lymphocyte # 2.51 X10^3/ul (0.83-4.51); Lymphocyte % 31.5 % (19-41); Mean Corp Hgb Conc 32.1 g/dL (32-36); Mean Corpuscular Hgb 29.4 pg (27.0-32.0); Mean Corpuscular Volume 91.7 fL (81-99); Mean Platelet Vol. 11.1 fl (6.2-12.0); Monocyte# 0.74 X10^3/uL; Monocyte% 9.3 % (0-10); NRBC Flagged by Analyzer 0 % (0-5); Neutrophil # 4.13 X10^3/uL (2.7-7.7); Neutrophil % 51.8 % (47-70); Platelet Count 276 K/mm3 (150-450); RBC Distribution Width CV 13.3 % (11.6-14.6); RBC Distribution Width SD 44.8 fl (35.1-43.9); Red Blood Count 4.11 M/mm3 (4.2-5.4)
[2024-11-16 12:48] LABS: ALB/GLOB Ratio 1.2 RATIO (0.9-2.4); AST(SGOT) 28 U/L (<=31); Alanine Aminotransfer ALT/SGPT 17 U/L (<=34); Alkaline Phosphatase 98 U/L (35-104); Anion Gap 13 (5-15); BUN 24 mg/dL (4-19); BUN/Creat Ratio 24.2 RATIO (10-20); Calcium,Total 10.2 mg/dL (7.6-11.0); Carbon Dioxide 28.4 mmol/L (21.0-32.0); Chloride 100 mmol/L (98-108); Creatinine, Serum 1.01 mg/dL (0.70-1.20); EST Glomerular Filtration Rate 57 (>60); Globulin 3.4 g/dL (2.2-4.2); Glucose 126 mg/dL (70-99); Potassium 3.9 mmol/L (3.3-5.1); Protein, Total 7.4 g/dL (5.9-8.4); Sodium Level 141 mmol/L (133-145); Total Bilirubin 0.56 mg/dL (0.00-1.30)
== END | disposition home or self-care (01) ==
LOC: MTLAB 10:07
PROVIDERS: PCP Internal Medicine; Referring Provider Internal Medicine Rheumatology; Visit Provider Internal Medicine Rheumatology
DX: M06.09 Rheumatoid arthritis without rheumatoid factor, multiple sites (principal); Z79.899 Other long term (current) drug therapy; R76.8 Other specified abnormal immunological findings in serum; M19.041 Primary osteoarthritis, right hand; M35.00 Sjogren syndrome, unspecified
CPT/HCPCS: 36415; 80053; 85025

== ENCOUNTER → 2024-12-03 | Outpatient (CLI) | payer MEDICARE, SELFPAY | END | disposition home or self-care (01) | LOC: PSN 10:44 | PROVIDERS: PCP Internal Medicine; Referring Provider Nurse Practitioner Acute Care; Visit Provider Nurse Practitioner Acute Care | DX: J44.9 Chronic obstructive pulmonary disease, unspecified (principal) | CPT/HCPCS: 94060; 94726; 94729 ==

== ENCOUNTER → 2024-12-21 | Outpatient (CLI) | payer MEDICARE, SELFPAY ==
[2024-12-21 12:45] VITALS: PULSE 100; PULSE 77; PULSE 79; PULSE 80; PULSE 89; PULSE 90; PULSE 95; O2SAT 92; O2SAT 93; O2SAT 94; O2SAT 95; O2SAT 97
--- NOTE | 2024-12-23 08:23 | PCM.PSN.6M ---
PSN 6 Minute Walk Test 6 Minute Walk Test 6 Minute Walk Test: 6 Minute Walk Test PSN:6-Minute Walk Test Start: 12/21/24 12:44 Freq: Status: Active Protocol: RESP.6MINW Document 12/21/24 12:45 [facility] (Rec: 12/21/24 12:49 [facility]B [id number]) 6 Minute Walk Test Date Performed 12/21/24 Time Performed 12:25 Height 5 ft 1 in Weight: 130 lb Weight in Pounds 130.[address]: Noemi Mendoza [employer] Assistive device None used: Pre-test Oxygen Delivery Room Air Method Pulse Ox (%) 95 Pulse Rate (60-100 77 beats/min) Dyspnea Roxy Scale ( 3 0-10) Exertion Roxy Scale 12 (6-20) 1st minute Oxygen Delivery Room Air Method Pulse Ox (%) 92 Pulse Rate (60-100 89 beats/min) Number of Rests 0 Taken 2nd minute Oxygen Delivery Room Air Method Pulse Ox (%) 92 Pulse Rate (60-100 90 beats/min) Number of Rests 0 Taken 3rd minute Oxygen Delivery Room Air Method Pulse Ox (%) 94 Pulse Rate (60-100 90 beats/min) Number of Rests 0 Taken 4th minute Oxygen Delivery Room Air Method Pulse Ox (%) 94 Pulse Rate (60-100 79 beats/min) Number of Rests 0 Taken 5th minute Oxygen Delivery Room Air Method Pulse Ox (%) 93 Pulse Rate (60-100 95 beats/min) Reported Symptoms Increased Work of Breathing 6th minute Oxygen Delivery Room Air Method Pulse Ox (%) 92 Pulse Rate (60-100 100 beats/min) Dyspnea Roxy Scale ( 4 0-10) Exertion Roxy Scale 14 (6-20) Number of Rests 0 Taken Reported Symptoms Increased Work of Breathing Post-test Oxygen Delivery Room Air Method Pulse Ox (%) 97 Pulse Rate (60-100 80 beats/min) Dyspnea Roxy Scale ( 3 0-10) Exertion Roxy Scale 11 (6-20) Number of Rests 0 Taken Full Laps Walked 8 Partial Lap, Number 0 of Tiles Walked Total Distance 472 Walked (ft) Interpretation Interpretation: The patient ambulated 472 feet over the course of 6 minutes beginning on room air without assistive devices. Pretesting oxygen saturation was noted to be 95% on room air. With ambulation, the jg oxygen saturation was 92%. There was no significant exertional oxygen desaturation. Recommendations Recommendations: There is no indication for the use of supplemental oxygen at this time.
== END | disposition home or self-care (01) ==
LOC: PSN 12:17
PROVIDERS: PCP Internal Medicine; Referring Provider Nurse Practitioner Acute Care; Visit Provider Nurse Practitioner Acute Care
DX: J96.11 Chronic respiratory failure with hypoxia (principal)
CPT/HCPCS: 94618

== ENCOUNTER → 2025-02-15 | Outpatient (CLI) | payer MEDICARE, SELFPAY ==
[2025-02-15 12:44] LABS: Hematocrit 39.2 % (37-47); Hemoglobin 12.6 g/dL (12.0-15.0); Immature Granulocytes Count 0.070 X10^3/uL (0.0-0.0); Mean Corp Hgb Conc 32.1 g/dL (32-36); Mean Corpuscular Volume 93.8 fL (81-99); Mean Platelet Vol. 9.8 fl (6.2-12.0); NRBC Flagged by Analyzer 0 % (0-5); POSITIVE DIFFERENTIAL YES; Platelet Count 302 K/mm3 (150-450); RBC Distribution Width CV 14.2 % (11.6-14.6); RBC Distribution Width SD 48.4 fl (35.1-43.9); Red Blood Count 4.18 M/mm3 (4.2-5.4); White Blood Count 8.2 K/mm3 (4.4-11.0)
[2025-02-15 12:50] LABS: Differential Indicated SCAN CRITERIA MET
[2025-02-15 13:10] LABS: Differential Comment SCANNED
[2025-02-15 13:50] LABS: AST(SGOT) 26 U/L (<=31); Alanine Aminotransfer ALT/SGPT 19 U/L (<=34); Albumin, Serum 3.7 g/dL (3.4-4.8); Alkaline Phosphatase 95 U/L (35-104); Anion Gap 12 (5-15); BUN 28 mg/dL (4-19); BUN/Creat Ratio 18.4 RATIO (10-20); Calcium,Total 9.8 mg/dL (7.6-11.0); Carbon Dioxide 27.9 mmol/L (21.0-32.0); Chloride 101 mmol/L (98-108); Globulin 3.1 g/dL (2.2-4.2); Glucose 102 mg/dL (70-99); Magnesium 2.5 mg/dL (1.5-2.2); Potassium 4.6 mmol/L (3.3-5.1)
[2025-02-16 10:32] LABS: Pro- Brain NATRIURETIC PEPTIDE 5248 pg/mL (<=1800)
== END | disposition home or self-care (01) ==
LOC: LAB 12:07
PROVIDERS: PCP Internal Medicine; Referring Provider Nurse Practitioner Family; Visit Provider Nurse Practitioner Family
DX: R06.02 Shortness of breath (principal); I50.32 Chronic diastolic (congestive) heart failure; I48.0 Paroxysmal atrial fibrillation; E78.5 Hyperlipidemia, unspecified
CPT/HCPCS: 36415; 80053; 83735; 83880; 84439; 84443; 85025

== ENCOUNTER → 2025-02-23 | Outpatient (CLI) | payer MEDICARE, SELFPAY ==
[2025-02-23 16:07] LABS: Hematocrit 37.6 % (37-47); Hemoglobin 12.1 g/dL (12.0-15.0); Immature Granulocytes Count 0.020 X10^3/uL (0.0-0.0); Mean Corp Hgb Conc 32.2 g/dL (32-36); Mean Corpuscular Volume 94.7 fL (81-99); Mean Platelet Vol. 10.1 fl (6.2-12.0); NRBC Flagged by Analyzer 0 % (0-5); Platelet Count 345 K/mm3 (150-450); RBC Distribution Width CV 14.3 % (11.6-14.6); RBC Distribution Width SD 49.6 fl (35.1-43.9); Red Blood Count 3.97 M/mm3 (4.2-5.4); White Blood Count 8.1 K/mm3 (4.4-11.0)
[2025-02-23 16:19] LABS: AST(SGOT) 27 U/L (<=31); Alanine Aminotransfer ALT/SGPT 21 U/L (<=34); Albumin, Serum 3.7 g/dL (3.4-4.8); Alkaline Phosphatase 116 U/L (35-104); Anion Gap 12 (5-15); BUN 28 mg/dL (4-19); BUN/Creat Ratio 18.9 RATIO (10-20); Calcium,Total 10.0 mg/dL (7.6-11.0); Carbon Dioxide 26.9 mmol/L (21.0-32.0); Chloride 100 mmol/L (98-108); Globulin 3.0 g/dL (2.2-4.2); Glucose 72 mg/dL (70-99); Potassium 4.7 mmol/L (3.3-5.1)
== END | disposition home or self-care (01) ==
LOC: LAB 12:35 → MTLAB 12:35
PROVIDERS: PCP Internal Medicine; Referring Provider Internal Medicine Rheumatology; Visit Provider Internal Medicine Rheumatology
DX: M06.09 Rheumatoid arthritis without rheumatoid factor, multiple sites (principal); Z79.899 Other long term (current) drug therapy; R76.8 Other specified abnormal immunological findings in serum; M35.00 Sjogren syndrome, unspecified
CPT/HCPCS: 36415; 80053; 85025

== ENCOUNTER → 2025-03-18 | Outpatient (CLI) | payer MEDICARE, SELFPAY ==
--- NOTE | 2025-03-19 16:11 | STRESSREP ---
Stress Test Report Date: 03/18/2025 Procedure: Pharmacologic stress nuclear imaging study Indications: Chest pain Consent: Per the patient Procedure: The patient underwent pharmacologic (Regadenoson) evaluation with a peak heart rate of 113 beats per minute (79%predicted maximal heart rate) and a peak blood pressure of 128/72. mmHg. The baseline ECG demonstrated A-fib. EKG during lexiscan infusion revealed no significant ischemic changes. EKG post infusion revealed no significant ischemic changes [There was no complaint of chest discomfort during pharmacologic infusion or recovery]. The examination was discontinued secondary to completion of protocol. Impression: 1. Lexiscan stress test test is negative for Lexiscan infusion induced EKG changes of ischemia. 2. Lexiscan stress test test is negative for Lexiscan infusion induced chest pain. 3. Results of the nuclear portion of the test is as below Myocardial perfusion imaging study: Technique: The patient was injected with 11.6 millicuries of technetium 99m Cardiolite and subsequently rest SPECT Cardiolite nuclear imaging was obtained in the horizontal long, vertical long, and short axis views. The patient underwent pharmacologic [Regadenoson 0.4mg] evaluation. Please see above for details. The patient was injected with 33.3 millicuries of technetium 99m Cardiolite and subsequently stress SPECT Cardiolite nuclear imaging was obtained in the horizontal long, vertical long, and short axis views. A gated Cardiolite study at peak stress was obtained. Interpretation: Rest and stress SPECT Cardiolite nuclear imaging status post realignment, normalization, and attenuation correction demonstrate no evidence of significant ischemia or infarction. Ejection fraction could not be obtained due to irregular heart rate. Impression: 1. There is no evidence of significant ischemia or infarction. This note was generated with [employer] software. It may contain incorrect words, spelling, and punctuation that were not noted in checking the note before signing.
== END | disposition home or self-care (01) ==
LOC: CVS 06:51
PROVIDERS: PCP Internal Medicine; Referring Provider Nurse Practitioner Family; Visit Provider Nurse Practitioner Family
DX: I48.0 Paroxysmal atrial fibrillation (principal); I50.32 Chronic diastolic (congestive) heart failure; I48.21 Permanent atrial fibrillation; E78.5 Hyperlipidemia, unspecified; R07.9 Chest pain, unspecified
CPT/HCPCS: 78452; 93017; A9500; A4216; J2785

== ENCOUNTER → 2025-04-07 | Outpatient (CLI) | payer MEDICARE, SELFPAY ==
--- NOTE | 2025-04-07 09:48 | VDLE_ITS ---
Reason For Study Reason For Study: SWELLING Procedure LEFT This is a venous duplex using B-mode, color flow and GSV is normal. spectral Doppler. CFV is compressible, spontaneous, phasic, competent, Exam performed in department. and demonstrates normal augmentation. The study was technically difficult. FV is compressible, spontaneous, phasic, competent A preliminary report was called and/or faxed to and demonstrates normal augmentation. Susan. POP V is compressible, spontaneous, phasic, competent and demonstrates normal augmentation. T/P Trunk is compressible. PTV is compressible. LT PerV is compressible. SFJ is competent and measures 0.27 cm. GSV proximal thigh measures 0.33 x 0.29 cm. GSV at knee measures 0.21 x 0.18 cm. GSV is competent throughout. SSV mid calf is competent and measures 0.23 x 0.19 cm. ASV from prox thigh to distal calf is competent. Compressible varicosities noted at distal calf. VL/Venous Duplex US, Unilateral Interpretation Summary Deep veins of the left lower extremity are patent and compressible segmentally. There is no evidence of left lower extremity deep vein thrombosis. The left great saphenous vein appears patent an d compressible segmentally. Negative for reflux. Ordering Physician: Isamar Hackett Referring Physician: Tasneem Beck; Florecita Matthews Performed By: Hugo CAGE [facility], [place] and Student
== END | disposition home or self-care (01) ==
LOC: CVS 09:47
PROVIDERS: PCP Internal Medicine; Referring Provider Physician Assistant; Visit Provider Physician Assistant
DX: R60.0 Localized edema (principal); I87.2 Venous insufficiency (chronic) (peripheral)
CPT/HCPCS: 93971

== ENCOUNTER → 2025-04-20 | Outpatient (CLI) | payer MEDICARE, SELFPAY ==
--- NOTE | 2025-04-20 10:43 | ECHOD_ITS ---
Reason For Study Reason For Study: ATRIAL FIBRILLATION Procedure This was a 2D Doppler, Color Flow transthoracic echocardiogram. Technically difficult study due to limited acoustic windows. Exam performed in department. Left Ventricle Normal size and thickness. The left ventricular ejection fraction is 65 %. Unable to assess diastolic dysfunction due to arrhythmia. Right Ventricle Normal right ventricle. Atria There is severe biatrial dilatation. Mitral Valve Moderate (2+) mitral valve insufficiency. Tricuspid Valve Moderate to severe tricuspid valve regurgitation. Estimated RVSP 45 mmHg. Aortic Valve Mildly calcified aortic valve. Mild aortic valve stenosis. Pulmonic Valve The pulmonic valve is not well visualized. Mild (1+) pulmonic valve insufficiency. Great Vessels Normal sized aortic root. Pericardium/Pleural No pericardial effusion. MMode/2D Measurements & Calculations LVIDd: 4.0 cm IVSd: 0.93 cm LVOT diam: 1.8 cm LVIDs: 2.3 cm LVPWd: 0.92 cm LVOT area: 2.6 cm2 RVDd: 3.6 cm FS: 42.3 % asc Aorta Diam: 3.3 cm LAV(MOD-bp): 56.7 ml LVAd ap4: 13.5 cm2 LAV(MOD-bp) Indexed: 35.4 ml/m2 LVLd ap4: 5.4 cm LAV(MOD-sp2): 64.8 ml EDV(MOD-sp4): 27.8 ml LAV(MOD-sp4): 48.7 ml EDV(sp4-el): 28.8 ml LVAs ap4: 7.7 cm2 LVLs ap4: 4.4 cm ESV(MOD-sp4): 11.6 ml ESV(sp4-el): 11.4 ml EF(MOD-sp4): 58.4 % EF(sp4-el): 60.4 % LVAd ap2: 11.5 cm2 SV(MOD-sp4): 16.2 ml SV(MOD-sp2): 12.0 ml LVLd ap2: 5.1 cm SI(MOD-sp4): 10.1 ml/m2 SI(MOD-sp2): 7.5 ml/m2 EDV(MOD-sp2): 22.0 ml EDV(sp2-el): 22.2 ml LVAs ap2: 7.0 cm2 LVLs ap2: 4.3 cm ESV(MOD-sp2): 9.9 ml ESV(sp2-el): 9.7 ml EF(MOD-sp2): 54.7 % SV(sp4-el): 17.4 ml Ao sinus diam: 3.[address] Junction: 2.6 cm LA dimension(2D): 4.5 cm LA A4 area: 18.1 cm2 RA A4 area: 15.2 cm2 TAPSE: 1.6 cm Time Measurements MV dec time: 0.13 sec Doppler Measurements & Calculations MV E max tanvir: 97.6 cm/sec Ao V2 max: 178.6 cm/sec LV V1 max: 102.0 cm/sec Ao max P.8 mmHg LV V1 max P.2 mmHg Ao V2 mean: 138.7 cm/sec LV V1 mean P.6 mmHg Ao mean P.1 mmHg LV V1 mean: 79.0 cm/sec Ao V2 VTI: 29.7 cm LV V1 VTI: 19.2 cm AV (velocity ratio): 0.65 BACILIO(I,D): 1.7 cm2 BACILIO(V,D): 1.5 cm2 SV(LVOT): 49.4 ml PA V2 max: 98.3 cm/sec TR max tanvir: 297.7 cm/sec TR max P.5 mmHg ECHO/Echo Complete Interpretation Summary The left ventricular ejection fraction is 65 %. Unable to assess diastolic dysfunction due to arrhythmia. There is severe biatrial dilatation. Moderate (2+) mitral valve insufficiency. Moderate to severe tricuspid valve regurgitation. Estimated RVSP 45 mmHg. Mildly calcified aortic valve. Mild aortic valve stenosis. Mild (1+) pulmonic valve insufficiency. Ordering Physician: Carl Abrams Referring Physician: Carl Abrams Performed By: Rona Tsai RDCS
== END | disposition home or self-care (01) ==
LOC: CVS 10:43
PROVIDERS: PCP Internal Medicine; Referring Provider Nurse Practitioner Family; Visit Provider Nurse Practitioner Family
DX: R06.02 Shortness of breath (principal); I27.20 Pulmonary hypertension, unspecified; I48.0 Paroxysmal atrial fibrillation
CPT/HCPCS: 93306

== ENCOUNTER → 2025-04-26 | Outpatient (CLI) | payer MEDICARE, SELFPAY ==
--- OUTSIDE RECORDS SUMMARY | 2025-04-23 11:09 | XMS RPT_ITS ---
Author Name Auto Generated Organization OHIP Care Team Providers Care Temperature Regulator Name Role Phone GANTA, ANDRA Primary Care Unavailable OLDER, SHEFALI Attending Unavailable GANTA, ANDRA Primary Care Unavailable OLDER, SHEFALI Referring Unavailable GANTA, ANDRA Primary Care Unavailable GANTA, ANDRA Referring Unavailable GANTA, ANDRA Primary Care Unavailable CUCCI, ROBIN R Referring Unavailable GANTA, ANDRA Primary Care Unavailable CUCCI, ROBIN R Referring Unavailable CUCCI, ROBIN R Attending Unavailable GANTA, ANDRA Primary Care Unavailable CUCCI, ROBIN R Referring Unavailable GANTA, ANDRA Primary Care Unavailable OLDER, SHEFALI Referring Unavailable GANTA, ANDRA Primary Care Unavailable OLDER, SHEFALI Referring Unavailable GANTA, ANDRA Primary Care Unavailable GANTA, ANDRA Attending Unavailable GANTA, ANDRA Primary Care Unavailable CUCCI, ROIBN R Referring Unavailable GANTA, ANDRA Primary Care Unavailable GANTA, ANDRA Primary Care Unavailable CUCCI, ROBIN R Referring Unavailable GANTA, ANDRA Primary Care Unavailable OLDER, SHEFALI Attending Unavailable GANTA, ANDRA Primary Care Unavailable CUCCI, ROBIN R Referring Unavailable GANTA, ANDRA Primary Care Unavailable GANTA, ANDRA Attending Unavailable GANTA, ANDRA Primary Care Unavailable GANTA, ANDRA Referring Unavailable GANTA, ANDRA Primary Care Unavailable GANTA, ANDRA Primary Care Unavailable GANTA, ANDRA Attending Unavailable GANTA, ANDRA Primary Care Unavailable GANTA, ANDRA Attending Unavailable GANTA, ANDRA Primary Care Unavailable GANTA, ANDRA Referring Unavailable GANTA, ANDRA Primary Care Unavailable GANTA, ANDRA Referring Unavailable GANTA, ANDRA Primary Care Unavailable JEWELS AUGUSTIN Attending Unavailable GANTA, ANDRA Primary Care Unavailable OLDER, SHEFALI Referring Unavailable CUCCI, ROBIN R Referring Unavailable GANTA, ANDRA Primary Care Unavailable ROBIN WHITEHEAD Referring Unavailable GANTA, ANDRA Primary Care Unavailable ROBIN WHITEHEAD Admitting Unavailable ROBIN WHITEHEAD Attending Unavailable ROBIN WHITEHEAD R Referring Unavailable GANTA, ANDRA Primary Care Unavailable GANTA, ANDRA AZAM Consulting Unavailable BENNETT HARTMAN DPAntonia Attending Unavailable BENNETT HARTMAN DPM Primary Care Unavailable BENNETT HARTMAN DPM Admitting Unavailable PROVIDER, UNKNOWN Consulting Unavailable PROBLEMS DATE TYPE CONDITION / CODE ATTENDING STATUS [facility] 03/11/2025 Active Swelling of extr emity, left / M79.89(ICD-10) OLDER, SHEFALI Active [facility] 03/11/2025 Active Tenderness of le ft calf / M79.662(ICD-10) OLDER, SHEFALI Active [facility] 03/11/2025 Active Alteration in anticoagulation / Z51.81(ICD-10) OLDER, SHEFALI Active [facility] 03/11/2025 Active Alteration in anticoagulation / Z79.01(ICD-10) OLDER, SHEFALI Active [facility] 03/11/2025 Active History of recen t surgery / Z98.890(ICD-10) OLDER, SHEFALI Active [facility] 03/04/2025 Active Stage 3a chronic kidney disease (HCC) / N18.31(ICD-10) NA Active [facility] 03/04/2025 Active Function kidney decreased / N28.9(ICD-10) NA Active [facility] 01/25/2025 Active Pre-op exam / Z01.818(ICD-10) NA Active [facility] 10/15/2024 Active Pneumonia of low er lobe due to Streptococcus pneumoniae, unspecified laterality (HCC) / J13(ICD-10) NA Active [facility] 10/15/2024 Active Continued fever / R50.9(ICD-10) NA Active [facility] 05/12/2023 Active Congestive heart failure, unspecified HF chronicity, unspecified heart failure type (HCC) / I50.9(ICD-10) NA Active [facility] 09/23/2024 Active Stage 3 chronic kidney disease, unspecified whether stage 3a or 3b CKD (HCC) / N18.30(ICD-10) NA Active [facility] 09/23/2024 Active Prediabetes / R73.03(ICD-10) NA Active [facility] 09/23/2024 Active Preop exam for i nternal medicine / Z01.818(ICD-10) NA Active [facility] 09/14/2024 Active Lung nodule / R91.1(ICD-10) NA A ctive [facility] 07/01/2024 Active Pulmonary HTN (H CC) / I27.20(ICD-10) ROBIN WHITEHEAD Active [facility] 09/17/2023 Active Rheumatoid arthr itis with positive rheumatoid factor, involving unspecified site (HCC) / M05.9(ICD-10) ANDRA RODRIGUES [facility] 06/26/2023 Active Acquired hypothy roidism / E03.9(ICD-10) RAVI ANDRA [facility] 07/24/2021 Active Gastroesophageal reflux disease without esophagitis / K21.9(ICD-10) RAVI ANDRA Active [facility] 03/26/2021 Active Centrilobular em physema (HCC) / J43.2(ICD-10) RAVI [facility] Active [facility] 06/19/2015 Active Pure hypercholes terolemia / E78.00(ICD-10) RAVI [facility] 12/16/2014 Active Longstanding per sistent atrial fibrillation (HCC) / I48.11(ICD-10) ANDRA RODRIGUES [facility] 06/23/2023 Active Pulmonary hypert ension due to lung diseases and hypoxia (HCC) / I27.23(ICD-10) NA Active [facility] 06/15/2024 Active Interstitial pul monary disease (HCC) / J84.9(ICD-10) [facility] 06/04/2024 Active Encounter for sc reening for HIV / Z11.4(ICD-10) NA Active [facility] PROCEDURES No Procedure Records Found RESULTS CNPN Observed: 04/22/2025 12:00 AM Status: COMPLETED Source: [facility] Telephone (INT[facility]) MALU KITCHEN ([id number]) 1945 F Date Time Provider Department 04/22/25 ANDRA RODRIGUES During your visit today, we recorded the following information about you: Melvi Coelho MA 04/22/2025 2:41 PM Signed Last INR: INR (POCT) 3.1 04/22/2025 Current dose of coumadin is:1 mg Coumadin all days except on Tuesdays and Fridays 2mg . Last date of dose change: 04/13. Previous INR (date and result): 2.7 04/12 DEE Marroquin Joy, APRN.CNP 04/22/2025 3:20 PM Signed Has there been any antibiotics or medication changes? Thank you Shefali Rich APRN.Tammi Collado MA 04/22/2025 3:58 PM Signed Patient has gout in R hand. Was given steroid shot and prednisone. Shefali Rich APRN.CNP 04/25/2025 12:56 PM Signed Is the gout resolved or is she still taking the prednisone? We will need to monitor INR closely if on prednisone. Recheck INR this week. No coumadin changes yet. Thank you JAQUELIN Bryan Jane, MA 04/25/2025 2:32 PM Signed Patient checks INR weekly, gout is improved but still taking prednisone. Allergies As of Date: 04/22/2025 Noted Allergy Reaction ADHESIVE TAPE (ROSINS) 08/22/2005 2 - Rash IBUPROFEN 06/06/2014 Comments: Pt on coumadin VICODIN (HYDROCODONE-ACETAMINOPHE*12/15/2014 8 - GI Upset Date Reviewed: 03/11/2025 Reviewed by: Shefali Rich APRN.TRAINING LEAD - Fully Assessed Reason for Visit: Anticoagulation [8] Cmt: Order(s):PROTHROMBIN TIME [SQPT] Order #: [id number] Prescriptions as of 04/25/2025 - HYDROcodone-acetaminophen (NORCO) 5-325 mg per tablet Take 1 tablet by mouth every 8 hours as needed for pain for up to 30 days. - pantoprazole DR (PROTONIX) 40 mg tablet Take 1 tablet by mouth daily before breakfast. Take on empty stomach, 1/2 hr before meal. - ondansetron orally disintegrating (ZOFRAN ODT) 4 mg disintegrating tablet Take 1 tablet by mouth every 6 hours as needed for nausea/vomiting. - furosemide (LASIX) 40 mg tablet Take 1 tablet by mouth once daily. Takes twice daily if with increased edema - dilTIAZem CD (CARDIZEM CD) 180 mg 24 hr capsule Take 1 capsule by mouth once daily. - potassium chloride SR (MICRO-K) 10 mEq CR capsule Take 2 capsules by mouth two times a day. - atenolol (TENORMIN) 25 mg tablet Take 1 tablet by mouth two times a day. - gabapentin (NEURONTIN) 300 mg capsule Take 1 capsule by mouth two times a day. - zolpidem (AMBIEN) 10 mg Take 1 tablet by mouth at bedtime as needed for up to 180 days. - warfarin (COUMADIN) 1 mg tablet Take 1 tablet by mouth once daily. Please take daily as directed - empagliflozin (JARDIANCE) 10 mg tablet Take 1 tablet by mouth daily with breakfast. - metOLazone (ZAROXOLYN) 2.5 mg tablet Take 1 tablet by mouth every other day. - leflunomide (ARAVA) 10 mg tablet Take 1 tablet by mouth once daily. - levothyroxine (SYNTHROID) 25 mcg tablet Take 1 tablet by mouth daily before breakfast. - TRELEGY ELLIPTA 100-62.5-25 mcg inhalation powder Inhale 1 Puff as instructed once daily. - Magnesium 30 mg tablet Take 1 tablet by mouth twice daily. - calcium carbonate/vitamin d3(CALCIUM 600 + D(3) 600 MG (1,500)-200 UNIT TAB) Take one(1) tablet twice daily BY MOUTH. - DAILY MULTIPLE TAB Take one(1) tablet daily BY MOUTH. Problem List As Of Date 04/22/2025 Noted Resolved Osteoarthrosis, unspecified whether generalized* 03/11/2017 AMNESIA (RETROGRADE) TRANSIENT GLOBAL [G45.4] 07/15/2007 06/26/2023 HIGH BLOOD PRESSURE-NO HYPERTENSN [R03.0] 07/15/2007 03/11/2017 INSOMNIA [G47.00] 07/15/2007 TOBACCO USE - PERSONAL HX [Z87.891] 07/15/2007 03/11/2017 Hyperlipidemia [E78.5] 08/20/2007 TIA (transient ischemic attack) [G45.9] 12/16/2007 06/26/2023 Acute gastritis with hemorrhage [K29.01] 10/13/2008 03/11/2017 Acute gastritis without mention of hemorrhage [*10/13/2008 03/11/2017 Hyperlipemia [E78.5] 06/16/2009 02/02/2016 Atrial Fibrillation [I48.91] 06/16/2009 12/16/2014 Sicca syndrome (HCC) [M35.00] 03/11/2017 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] 03/11/2017 Generalized Osteoarthrosis, Involving Hand [M15* Diarrhea [R19.7] 10/03/2009 12/16/2014 Diverticulosis of colon (without mention of hem*10/03/2009 06/26/2023 Internal hemorrhoids without mention of complic*10/03/2009 03/11/2017 Mitral regurgitation [I34.0] 09/02/2011 Right wrist pain [M25.531] 12/15/2012 03/11/2017 Uterovaginal prolapse [N81.4] 07/29/2013 03/11/2017 Cystocele [OEB1859] 07/29/2013 06/26/2023 Rotator cuff tear arthropathy of both shoulders*08/24/2013 PMB (postmenopausal bleeding) [N95.0] 09/07/2013 03/11/2017 Atrial fibrillation (HCC) [I48.91] 12/16/2014 Psoas tendinitis of right side [M76.11] 12/05/2015 03/11/2017 Gastroesophageal reflux disease without esophag*03/11/2016 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 *07/08/2016 Bilateral hip pain [M25.551, M25.552] 03/11/2017 S/P lumbar fusion [Z98.1] 06/02/2017 Abrasion of left forearm [S50.812A] 06/26/2017 03/18/2023 Laceration of left forearm [S51.812A] 06/26/2017 03/18/2023 Contusion of left hand [S60.222A] 06/26/2017 03/18/2023 Hematoma of left hip [S70.02XA] 06/26/2017 06/26/2023 Contusion of left knee [S80.02XA] 06/26/2017 03/18/2023 Primary osteoarthritis involving multiple joint*03/24/2018 Centrilobular emphysema (HCC) [J43.2] 04/13/2020 Gastrointestinal hemorrhage associated with ano*11/22/2020 06/26/2023 Iron deficiency anemia due to chronic blood los*11/22/2020 Pinched nerve in neck [G58.9] 01/30/2021 06/05/2021 Simple chronic bronchitis (HCC) [J41.0] 03/26/2021 Nonrheumatic tricuspid valve regurgitation [I36*03/26/2021 Congestive heart failure, unspecified HF chroni*05/12/2023 Acute respiratory failure with hypoxia and hype*05/12/2023 03/17/2024 Pulmonary hypertension due to lung diseases and*06/23/2023 Acquired hypothyroidism [E03.9] 01/23/2022 Rheumatoid arthritis with positive rheumatoid f*09/17/2023 PAH (pulmonary artery hypertension) (HCC) [I27.*07/01/2024 Encounter Status:Closed by TAMMI DOTSON on 04/25/25 [place] Observed: 04/12/2025 12:00 AM Status: COMPLETED Source: [facility] MALU KITCHEN ([id number]) 1945 F Date Time Provider Department 04/12/25 [facility] During your visit today, we recorded the following information about you: Melvi Coelho MA 04/12/2025 6:40 PM Signed Last INR: INR (POCT) 2.7 04/12/2025 Current dose of coumadin is: . 1 mg Coumadin all days except on Tuesdays and Fridays 2mg . Last date of dose change: 04/01. Previous INR (date and result): 2.5 04/01 DEE Marroquin Chitra, MD 04/13/2025 12:48 PM Addendum INR is in range, continue the same and recheck in 2 weeks. Regards, Melissa Balbuena MD, MA 04/13/2025 3:36 PM Signed Patient notified of results, verbalizes understanding of instructions. Melissa Luz MA Allergies As of Date: 04/12/2025 Noted Allergy Reaction ADHESIVE TAPE (ROSINS) 08/22/2005 2 - Rash IBUPROFEN 06/06/2014 Comments: Pt on coumadin VICODIN (HYDROCODONE-ACETAMINOPHE*12/15/2014 8 - GI Upset Date Reviewed: 03/11/2025 Reviewed by: Shefali Rich APRN.TRAINING LEAD - Fully Assessed Reason for Visit: Anticoagulation [8] Cmt: Order(s):PROTHROMBIN TIME [SQPT] Order #: [id number] Prescriptions as of 04/13/2025 - HYDROcodone-acetaminophen (NORCO) 5-325 mg per tablet Take 1 tablet by mouth every 8 hours as needed for pain for up to 30 days. - pantoprazole DR (PROTONIX) 40 mg tablet Take 1 tablet by mouth daily before breakfast. Take on empty stomach, 1/2 hr before meal. - ondansetron orally disintegrating (ZOFRAN ODT) 4 mg disintegrating tablet Take 1 tablet by mouth every 6 hours as needed for nausea/vomiting. - furosemide (LASIX) 40 mg tablet Take 1 tablet by mouth once daily. Takes twice daily if with increased edema - dilTIAZem CD (CARDIZEM CD) 180 mg 24 hr capsule Take 1 capsule by mouth once daily. - potassium chloride SR (MICRO-K) 10 mEq CR capsule Take 2 capsules by mouth two times a day. - atenolol (TENORMIN) 25 mg tablet Take 1 tablet by mouth two times a day. - gabapentin (NEURONTIN) 300 mg capsule Take 1 capsule by mouth two times a day. - zolpidem (AMBIEN) 10 mg Take 1 tablet by mouth at bedtime as needed for up to 180 days. - warfarin (COUMADIN) 1 mg tablet Take 1 tablet by mouth once daily. Please take daily as directed - empagliflozin (JARDIANCE) 10 mg tablet Take 1 tablet by mouth daily with breakfast. - metOLazone (ZAROXOLYN) 2.5 mg tablet Take 1 tablet by mouth every other day. - leflunomide (ARAVA) 10 mg tablet Take 1 tablet by mouth once daily. - levothyroxine (SYNTHROID) 25 mcg tablet Take 1 tablet by mouth daily before breakfast. - TRELEGY ELLIPTA 100-62.5-25 mcg inhalation powder Inhale 1 Puff as instructed once daily. - Magnesium 30 mg tablet Take 1 tablet by mouth twice daily. - calcium carbonate/vitamin d3(CALCIUM 600 + D(3) 600 MG (1,500)-200 UNIT TAB) Take one(1) tablet twice daily BY MOUTH. - DAILY MULTIPLE TAB Take one(1) tablet daily BY MOUTH. Problem List As Of Date 04/12/2025 Noted Resolved Osteoarthrosis, unspecified whether generalized* 03/11/2017 AMNESIA (RETROGRADE) TRANSIENT GLOBAL [G45.4] 07/15/2007 06/26/2023 HIGH BLOOD PRESSURE-NO HYPERTENSN [R03.0] 07/15/2007 03/11/2017 INSOMNIA [G47.00] 07/15/2007 TOBACCO USE - PERSONAL HX [Z87.891] 07/15/2007 03/11/2017 Hyperlipidemia [E78.5] 08/20/2007 TIA (transient ischemic attack) [G45.9] 12/16/2007 06/26/2023 Acute gastritis with hemorrhage [K29.01] 10/13/2008 03/11/2017 Acute gastritis without mention of hemorrhage [*10/13/2008 03/11/2017 Hyperlipemia [E78.5] 06/16/2009 02/02/2016 Atrial Fibrillation [I48.91] 06/16/2009 12/16/2014 Sicca syndrome (HCC) [M35.00] 03/11/2017 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] 03/11/2017 Generalized Osteoarthrosis, Involving Hand [M15* Diarrhea [R19.7] 10/03/2009 12/16/2014 Diverticulosis of colon (without mention of hem*10/03/2009 06/26/2023 Internal hemorrhoids without mention of complic*10/03/2009 03/11/2017 Mitral regurgitation [I34.0] 09/02/2011 Right wrist pain [M25.531] 12/15/2012 03/11/2017 Uterovaginal prolapse [N81.4] 07/29/2013 03/11/2017 Cystocele [HVQ6367] 07/29/2013 06/26/2023 Rotator cuff tear arthropathy of both shoulders*08/24/2013 PMB (postmenopausal bleeding) [N95.0] 09/07/2013 03/11/2017 Atrial fibrillation (HCC) [I48.91] 12/16/2014 Psoas tendinitis of right side [M76.11] 12/05/2015 03/11/2017 Gastroesophageal reflux disease without esophag*03/11/2016 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 *07/08/2016 Bilateral hip pain [M25.551, M25.552] 03/11/2017 S/P lumbar fusion [Z98.1] 06/02/2017 Abrasion of left forearm [S50.812A] 06/26/2017 03/18/2023 Laceration of left forearm [S51.812A] 06/26/2017 03/18/2023 Contusion of left hand [S60.222A] 06/26/2017 03/18/2023 Hematoma of left hip [S70.02XA] 06/26/2017 06/26/2023 Contusion of left knee [S80.02XA] 06/26/2017 03/18/2023 Primary osteoarthritis involving multiple joint*03/24/2018 Centrilobular emphysema (HCC) [J43.2] 04/13/2020 Gastrointestinal hemorrhage associated with ano*11/22/2020 06/26/2023 Iron deficiency anemia due to chronic blood los*11/22/2020 Pinched nerve in neck [G58.9] 01/30/2021 06/05/2021 Simple chronic bronchitis (HCC) [J41.0] 03/26/2021 Nonrheumatic tricuspid valve regurgitation [I36*03/26/2021 Congestive heart failure, unspecified HF chroni*05/12/2023 Acute respiratory failure with hypoxia and hype*05/12/2023 03/17/2024 Pulmonary hypertension due to lung diseases and*06/23/2023 Acquired hypothyroidism [E03.9] 01/23/2022 Rheumatoid arthritis with positive rheumatoid f*09/17/2023 PAH (pulmonary artery hypertension) (HCC) [I27.*07/01/2024 Encounter Status:Closed by MELISSA LUZ on 04/13/25 [place] Observed: 04/01/2025 12:00 AM Status: COMPLETED Source: [facility] Telephone ([facility]) MALU KITCHEN ([id number]) 1945 F Date Time Provider Department 04/01/25 [facility] RODRIGUES [facility] During your visit today, we recorded the following information about you: Zahra Prater LPN 04/01/2025 1:40 PM Signed Last INR: 2.5 04/01/2025 per home INR Current dose of coumadin is:1 mg Coumadin all days except on Tuesdays and Fridays 2mg . Last date of dose change: 03/09/25. Previous INR (date and result): 03/19/25 was 3.0 Additional Clinical Information or narrative: INR goal is 2-3 Pt checks INR weekly per home INR protocol. Pt findings are negative Shefali Rich APRN.KINGA 04/01/2025 3:04 PM Signed INR is in therapuetic range. Continue current dosage. Recheck in 2 weeks ,Thank you Shefali Rich APRN.Tammi Collado MA 04/01/2025 3:15 PM Signed Patient notified. Allergies As of Date: 04/01/2025 Noted Allergy Reaction ADHESIVE TAPE (ROSINS) 08/22/2005 2 - Rash IBUPROFEN 06/06/2014 Comments: Pt on coumadin VICODIN (HYDROCODONE-ACETAMINOPHE*12/15/2014 8 - GI Upset Date Reviewed: 03/11/2025 Reviewed by: Shefali Rich APRN.TRAINING LEAD - Fully Assessed Reason for Visit: Anticoagulation [8] Order(s):PROTHROMBIN TIME [SQPT] Order #: [id number] Prescriptions as of 04/01/2025 - HYDROcodone-acetaminophen (NORCO) 5-325 mg per tablet Take 1 tablet by mouth every 8 hours as needed for pain for up to 30 days. - pantoprazole DR (PROTONIX) 40 mg tablet Take 1 tablet by mouth daily before breakfast. Take on empty stomach, 1/2 hr before meal. - ondansetron orally disintegrating (ZOFRAN ODT) 4 mg disintegrating tablet Take 1 tablet by mouth every 6 hours as needed for nausea/vomiting. - furosemide (LASIX) 40 mg tablet Take 1 tablet by mouth once daily. Takes twice daily if with increased edema - dilTIAZem CD (CARDIZEM CD) 180 mg 24 hr capsule Take 1 capsule by mouth once daily. - potassium chloride SR (MICRO-K) 10 mEq CR capsule Take 2 capsules by mouth two times a day. - atenolol (TENORMIN) 25 mg tablet Take 1 tablet by mouth two times a day. - gabapentin (NEURONTIN) 300 mg capsule Take 1 capsule by mouth two times a day. - zolpidem (AMBIEN) 10 mg Take 1 tablet by mouth at bedtime as needed for up to 180 days. - warfarin (COUMADIN) 1 mg tablet Take 1 tablet by mouth once daily. Please take daily as directed - empagliflozin (JARDIANCE) 10 mg tablet Take 1 tablet by mouth daily with breakfast. - metOLazone (ZAROXOLYN) 2.5 mg tablet Take 1 tablet by mouth every other day. - leflunomide (ARAVA) 10 mg tablet Take 1 tablet by mouth once daily. - levothyroxine (SYNTHROID) 25 mcg tablet Take 1 tablet by mouth daily before breakfast. - TRELEGY ELLIPTA 100-62.5-25 mcg inhalation powder Inhale 1 Puff as instructed once daily. - Magnesium 30 mg tablet Take 1 tablet by mouth twice daily. - calcium carbonate/vitamin d3(CALCIUM 600 + D(3) 600 MG (1,500)-200 UNIT TAB) Take one(1) tablet twice daily BY MOUTH. - DAILY MULTIPLE TAB Take one(1) tablet daily BY MOUTH. Problem List As Of Date 04/01/2025 Noted Resolved Osteoarthrosis, unspecified whether generalized* 03/11/2017 AMNESIA (RETROGRADE) TRANSIENT GLOBAL [G45.4] 07/15/2007 06/26/2023 HIGH BLOOD PRESSURE-NO HYPERTENSN [R03.0] 07/15/2007 03/11/2017 INSOMNIA [G47.00] 07/15/2007 TOBACCO USE - PERSONAL HX [Z87.891] 07/15/2007 03/11/2017 Hyperlipidemia [E78.5] 08/20/2007 TIA (transient ischemic attack) [G45.9] 12/16/2007 06/26/2023 Acute gastritis with hemorrhage [K29.01] 10/13/2008 03/11/2017 Acute gastritis without mention of hemorrhage [*10/13/2008 03/11/2017 Hyperlipemia [E78.5] 06/16/2009 02/02/2016 Atrial Fibrillation [I48.91] 06/16/2009 12/16/2014 Sicca syndrome (HCC) [M35.00] 03/11/2017 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] 03/11/2017 Generalized Osteoarthrosis, Involving Hand [M15* Diarrhea [R19.7] 10/03/2009 12/16/2014 Diverticulosis of colon (without mention of hem*10/03/2009 06/26/2023 Internal hemorrhoids without mention of complic*10/03/2009 03/11/2017 Mitral regurgitation [I34.0] 09/02/2011 Right wrist pain [M25.531] 12/15/2012 03/11/2017 Uterovaginal prolapse [N81.4] 07/29/2013 03/11/2017 Cystocele [RDY6073] 07/29/2013 06/26/2023 Rotator cuff tear arthropathy of both shoulders*08/24/2013 PMB (postmenopausal bleeding) [N95.0] 09/07/2013 03/11/2017 Atrial fibrillation (HCC) [I48.91] 12/16/2014 Psoas tendinitis of right side [M76.11] 12/05/2015 03/11/2017 Gastroesophageal reflux disease without esophag*03/11/2016 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 *07/08/2016 Bilateral hip pain [M25.551, M25.552] 03/11/2017 S/P lumbar fusion [Z98.1] 06/02/2017 Abrasion of left forearm [S50.812A] 06/26/2017 03/18/2023 Laceration of left forearm [S51.812A] 06/26/2017 03/18/2023 Contusion of left hand [S60.222A] 06/26/2017 03/18/2023 Hematoma of left hip [S70.02XA] 06/26/2017 06/26/2023 Contusion of left knee [S80.02XA] 06/26/2017 03/18/2023 Primary osteoarthritis involving multiple joint*03/24/2018 Centrilobular emphysema (HCC) [J43.2] 04/13/2020 Gastrointestinal hemorrhage associated with ano*11/22/2020 06/26/2023 Iron deficiency anemia due to chronic blood los*11/22/2020 Pinched nerve in neck [G58.9] 01/30/2021 06/05/2021 Simple chronic bronchitis (HCC) [J41.0] 03/26/2021 Nonrheumatic tricuspid valve regurgitation [I36*03/26/2021 Congestive heart failure, unspecified HF chroni*05/12/2023 Acute respiratory failure with hypoxia and hype*05/12/2023 03/17/2024 Pulmonary hypertension due to lung diseases and*06/23/2023 Acquired hypothyroidism [E03.9] 01/23/2022 Rheumatoid arthritis with positive rheumatoid f*09/17/2023 PAH (pulmonary artery hypertension) (HCC) [I27.*07/01/2024 Encounter Status:Closed by TAMMI DOTSON on 04/01/25 [place] Observed: 03/21/2025 12:00 AM Status: COMPLETED Source: [facility] Telephone ([facility]) MALU KITCHEN ([id number]) 1945 F Date Time Provider Department 03/21/25 ANDRA RODRIGUES During your visit today, we recorded the following information about you: Brooke Guido LPN 03/21/2025 6:47 PM Signed Last INR: INR (POCT) 3.0 03/19/2025 Current dose of coumadin is: 1 mg Coumadin all days except on Tuesdays and Fridays. Last date of dose change: 03/09/25. Previous INR (date and result): 03/08/25 INR 3.3 Prescribed range is 2-3 Additional Clinical Information or narrative: Andra John MD 03/22/2025 9:13 PM Signed Continue the same regimen, and recheck I 1 week. Regards, Lucretia Bakns MD, RN 03/23/2025 12:34 PM Signed Called and left a voicemail for the Patient to call back and ask for a nurse to receive the providers message. Updated Anticoag tracker. MOSHE Bruce Stephanie, RN 03/23/2025 4:48 PM Signed Patient notified of provider's instructions. Patient verbalizes understanding. Sonia Perez RN Allergies As of Date: 03/21/2025 Noted Allergy Reaction ADHESIVE TAPE (ROSINS) 08/22/2005 2 - Rash IBUPROFEN 06/06/2014 Comments: Pt on coumadin VICODIN (HYDROCODONE-ACETAMINOPHE*12/15/2014 8 - GI Upset Date Reviewed: 03/11/2025 Reviewed by: Shefali Rich APRN.TRAINING LEAD - Fully Assessed Reason for Visit: Anticoagulation [8] Prescriptions as of 03/23/2025 - HYDROcodone-acetaminophen (NORCO) 5-325 mg per tablet Take 1 tablet by mouth every 8 hours as needed for pain for up to 30 days. - pantoprazole DR (PROTONIX) 40 mg tablet Take 1 tablet by mouth daily before breakfast. Take on empty stomach, 1/2 hr before meal. - ondansetron orally disintegrating (ZOFRAN ODT) 4 mg disintegrating tablet Take 1 tablet by mouth every 6 hours as needed for nausea/vomiting. - furosemide (LASIX) 40 mg tablet Take 1 tablet by mouth once daily. Takes twice daily if with increased edema - dilTIAZem CD (CARDIZEM CD) 180 mg 24 hr capsule Take 1 capsule by mouth once daily. - potassium chloride SR (MICRO-K) 10 mEq CR capsule Take 2 capsules by mouth two times a day. - atenolol (TENORMIN) 25 mg tablet Take 1 tablet by mouth two times a day. - gabapentin (NEURONTIN) 300 mg capsule Take 1 capsule by mouth two times a day. - zolpidem (AMBIEN) 10 mg Take 1 tablet by mouth at bedtime as needed for up to 180 days. - warfarin (COUMADIN) 1 mg tablet Take 1 tablet by mouth once daily. Please take daily as directed - empagliflozin (JARDIANCE) 10 mg tablet Take 1 tablet by mouth daily with breakfast. - metOLazone (ZAROXOLYN) 2.5 mg tablet Take 1 tablet by mouth every other day. - leflunomide (ARAVA) 10 mg tablet Take 1 tablet by mouth once daily. - levothyroxine (SYNTHROID) 25 mcg tablet Take 1 tablet by mouth daily before breakfast. - TRELEGY ELLIPTA 100-62.5-25 mcg inhalation powder Inhale 1 Puff as instructed once daily. - Magnesium 30 mg tablet Take 1 tablet by mouth twice daily. - calcium carbonate/vitamin d3(CALCIUM 600 + D(3) 600 MG (1,500)-200 UNIT TAB) Take one(1) tablet twice daily BY MOUTH. - DAILY MULTIPLE TAB Take one(1) tablet daily BY MOUTH. Problem List As Of Date 03/21/2025 Noted Resolved Osteoarthrosis, unspecified whether generalized* 03/11/2017 AMNESIA (RETROGRADE) TRANSIENT GLOBAL [G45.4] 07/15/2007 06/26/2023 HIGH BLOOD PRESSURE-NO HYPERTENSN [R03.0] 07/15/2007 03/11/2017 INSOMNIA [G47.00] 07/15/2007 TOBACCO USE - PERSONAL HX [Z87.891] 07/15/2007 03/11/2017 Hyperlipidemia [E78.5] 08/20/2007 TIA (transient ischemic attack) [G45.9] 12/16/2007 06/26/2023 Acute gastritis with hemorrhage [K29.01] 10/13/2008 03/11/2017 Acute gastritis without mention of hemorrhage [*10/13/2008 03/11/2017 Hyperlipemia [E78.5] 06/16/2009 02/02/2016 Atrial Fibrillation [I48.91] 06/16/2009 12/16/2014 Sicca syndrome (HCC) [M35.00] 03/11/2017 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] 03/11/2017 Generalized Osteoarthrosis, Involving Hand [M15* Diarrhea [R19.7] 10/03/2009 12/16/2014 Diverticulosis of colon (without mention of hem*10/03/2009 06/26/2023 Internal hemorrhoids without mention of complic*10/03/2009 03/11/2017 Mitral regurgitation [I34.0] 09/02/2011 Right wrist pain [M25.531] 12/15/2012 03/11/2017 Uterovaginal prolapse [N81.4] 07/29/2013 03/11/2017 Cystocele [IKP0735] 07/29/2013 06/26/2023 Rotator cuff tear arthropathy of both shoulders*08/24/2013 PMB (postmenopausal bleeding) [N95.0] 09/07/2013 03/11/2017 Atrial fibrillation (HCC) [I48.91] 12/16/2014 Psoas tendinitis of right side [M76.11] 12/05/2015 03/11/2017 Gastroesophageal reflux disease without esophag*03/11/2016 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 *07/08/2016 Bilateral hip pain [M25.551, M25.552] 03/11/2017 S/P lumbar fusion [Z98.1] 06/02/2017 Abrasion of left forearm [S50.812A] 06/26/2017 03/18/2023 Laceration of left forearm [S51.812A] 06/26/2017 03/18/2023 Contusion of left hand [S60.222A] 06/26/2017 03/18/2023 Hematoma of left hip [S70.02XA] 06/26/2017 06/26/2023 Contusion of left knee [S80.02XA] 06/26/2017 03/18/2023 Primary osteoarthritis involving multiple joint*03/24/2018 Centrilobular emphysema (HCC) [J43.2] 04/13/2020 Gastrointestinal hemorrhage associated with ano*11/22/2020 06/26/2023 Iron deficiency anemia due to chronic blood los*11/22/2020 Pinched nerve in neck [G58.9] 01/30/2021 06/05/2021 Simple chronic bronchitis (HCC) [J41.0] 03/26/2021 Nonrheumatic tricuspid valve regurgitation [I36*03/26/2021 Congestive heart failure, unspecified HF chroni*05/12/2023 Acute respiratory failure with hypoxia and hype*05/12/2023 03/17/2024 Pulmonary hypertension due to lung diseases and*06/23/2023 Acquired hypothyroidism [E03.9] 01/23/2022 Rheumatoid arthritis with positive rheumatoid f*09/17/2023 PAH (pulmonary artery hypertension) (HCC) [I27.*07/01/2024 Encounter Status:Closed by SONIA PEREZ on 03/23/25 [place] Observed: 03/14/2025 12:00 AM Status: COMPLETED Source: [facility] MALU KITCHEN ([id number]) 1945 F Date Time Provider Department 03/14/25 [facility] During your visit today, we recorded the following information about you: Marianna Weinstein LPN 03/14/2025 10:09 AM Signed Pt calls to request referral for vascular and pt information be faxed to Dr. Davis at [facility]. Pt information faxed to; [phone]. Marianna Weinstein LPN Allergies As of Date: 03/14/2025 Noted Allergy Reaction ADHESIVE TAPE (ROSINS) 08/22/2005 2 - Rash IBUPROFEN 06/06/2014 Comments: Pt on coumadin VICODIN (HYDROCODONE-ACETAMINOPHE*12/15/2014 8 - GI Upset Date Reviewed: 03/11/2025 Reviewed by: Shefali Rich APRN.TRAINING LEAD - Fully Assessed Reason for Visit: Referral Information [4063] Prescriptions as of 03/14/2025 - HYDROcodone-acetaminophen (NORCO) 5-325 mg per tablet Take 1 tablet by mouth every 8 hours as needed for pain for up to 30 days. - pantoprazole DR (PROTONIX) 40 mg tablet Take 1 tablet by mouth daily before breakfast. Take on empty stomach, 1/2 hr before meal. - ondansetron orally disintegrating (ZOFRAN ODT) 4 mg disintegrating tablet Take 1 tablet by mouth every 6 hours as needed for nausea/vomiting. - furosemide (LASIX) 40 mg tablet Take 1 tablet by mouth once daily. Takes twice daily if with increased edema - dilTIAZem CD (CARDIZEM CD) 180 mg 24 hr capsule Take 1 capsule by mouth once daily. - potassium chloride SR (MICRO-K) 10 mEq CR capsule Take 2 capsules by mouth two times a day. - atenolol (TENORMIN) 25 mg tablet Take 1 tablet by mouth two times a day. - gabapentin (NEURONTIN) 300 mg capsule Take 1 capsule by mouth two times a day. - zolpidem (AMBIEN) 10 mg Take 1 tablet by mouth at bedtime as needed for up to 180 days. - warfarin (COUMADIN) 1 mg tablet Take 1 tablet by mouth once daily. Please take daily as directed - empagliflozin (JARDIANCE) 10 mg tablet Take 1 tablet by mouth daily with breakfast. - metOLazone (ZAROXOLYN) 2.5 mg tablet Take 1 tablet by mouth every other day. - leflunomide (ARAVA) 10 mg tablet Take 1 tablet by mouth once daily. - levothyroxine (SYNTHROID) 25 mcg tablet Take 1 tablet by mouth daily before breakfast. - TRELEGY ELLIPTA 100-62.5-25 mcg inhalation powder Inhale 1 Puff as instructed once daily. - Magnesium 30 mg tablet Take 1 tablet by mouth twice daily. - calcium carbonate/vitamin d3(CALCIUM 600 + D(3) 600 MG (1,500)-200 UNIT TAB) Take one(1) tablet twice daily BY MOUTH. - DAILY MULTIPLE TAB Take one(1) tablet daily BY MOUTH. Problem List As Of Date 03/14/2025 Noted Resolved Osteoarthrosis, unspecified whether generalized* 03/11/2017 AMNESIA (RETROGRADE) TRANSIENT GLOBAL [G45.4] 07/15/2007 06/26/2023 HIGH BLOOD PRESSURE-NO HYPERTENSN [R03.0] 07/15/2007 03/11/2017 INSOMNIA [G47.00] 07/15/2007 TOBACCO USE - PERSONAL HX [Z87.891] 07/15/2007 03/11/2017 Hyperlipidemia [E78.5] 08/20/2007 TIA (transient ischemic attack) [G45.9] 12/16/2007 06/26/2023 Acute gastritis with hemorrhage [K29.01] 10/13/2008 03/11/2017 Acute gastritis without mention of hemorrhage [*10/13/2008 03/11/2017 Hyperlipemia [E78.5] 06/16/2009 02/02/2016 Atrial Fibrillation [I48.91] 06/16/2009 12/16/2014 Sicca syndrome (HCC) [M35.00] 03/11/2017 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] 03/11/2017 Generalized Osteoarthrosis, Involving Hand [M15* Diarrhea [R19.7] 10/03/2009 12/16/2014 Diverticulosis of colon (without mention of hem*10/03/2009 06/26/2023 Internal hemorrhoids without mention of complic*10/03/2009 03/11/2017 Mitral regurgitation [I34.0] 09/02/2011 Right wrist pain [M25.531] 12/15/2012 03/11/2017 Uterovaginal prolapse [N81.4] 07/29/2013 03/11/2017 Cystocele [OOP4106] 07/29/2013 06/26/2023 Rotator cuff tear arthropathy of both shoulders*08/24/2013 PMB (postmenopausal bleeding) [N95.0] 09/07/2013 03/11/2017 Atrial fibrillation (HCC) [I48.91] 12/16/2014 Psoas tendinitis of right side [M76.11] 12/05/2015 03/11/2017 Gastroesophageal reflux disease without esophag*03/11/2016 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 *07/08/2016 Bilateral hip pain [M25.551, M25.552] 03/11/2017 S/P lumbar fusion [Z98.1] 06/02/2017 Abrasion of left forearm [S50.812A] 06/26/2017 03/18/2023 Laceration of left forearm [S51.812A] 06/26/2017 03/18/2023 Contusion of left hand [S60.222A] 06/26/2017 03/18/2023 Hematoma of left hip [S70.02XA] 06/26/2017 06/26/2023 Contusion of left knee [S80.02XA] 06/26/2017 03/18/2023 Primary osteoarthritis involving multiple joint*03/24/2018 Centrilobular emphysema (HCC) [J43.2] 04/13/2020 Gastrointestinal hemorrhage associated with ano*11/22/2020 06/26/2023 Iron deficiency anemia due to chronic blood los*11/22/2020 Pinched nerve in neck [G58.9] 01/30/2021 06/05/2021 Simple chronic bronchitis (HCC) [J41.0] 03/26/2021 Nonrheumatic tricuspid valve regurgitation [I36*03/26/2021 Congestive heart failure, unspecified HF chroni*05/12/2023 Acute respiratory failure with hypoxia and hype*05/12/2023 03/17/2024 Pulmonary hypertension due to lung diseases and*06/23/2023 Acquired hypothyroidism [E03.9] 01/23/2022 Rheumatoid arthritis with positive rheumatoid f*09/17/2023 PAH (pulmonary artery hypertension) (HCC) [I27.*07/01/2024 Encounter Status:Closed by MARIANNA WEINSTEIN on 03/14/25 LEG VEIN DVT UNL VAS [facility] Observed: 11:04 AM Status: F Source: [facility] Non-Invasive [facility] Lower Extremity Venous Duplex Bilateral/Complete Date of service/time: 03/11/2025 11:04:53 AM Name: MALU KITCHEN Date of : 1945 Age: 79 years Gender: F Clinical Indication Left leg swelling. TECHNIQUE -------- A venous duplex ultrasound examination was performed, including grayscale imaging with compression maneuvers and color Doppler and spectral Doppler examination with augmentation maneuvers and response to respiration of the below mentioned veins. FINDINGS -------- RIGHT SIDE Common femoral vein Doppler: normal flow. Compression: normal. LEFT SIDE Distal external iliac vein Doppler: normal flow. Compression: normal. Common femoral vein Doppler: normal flow. Compression: normal. Femoral vein Doppler: normal flow. Compression: normal. Popliteal vein Doppler: normal flow. Compression: normal. Posterior tibial veins Compression: normal. Peroneal veins Compression: normal. Great saphenous vein Compression: normal. Small saphenous vein Compression: abnormal. IMPRESSION RIGHT SIDE - DEEP VEINS Spontaneous and respirophasic flow noted in the common femoral vein. LEFT SIDE - DEEP VEINS Negative for acute deep vein thrombosis. LEFT SIDE - SUPERFICIAL VEINS Negative for superficial thrombophlebitis in the great saphenous vein. Chronic post-thrombotic change in the small saphenous vein from proximal to distal. Technologist: Sharee Bryant RVT Ordering physician: SHEFALI RICH Interpreting physician: Gentry Smith MD, MSCR, RPVI Final CC [employer] Image : [id number] See Link below for Image PROGRESS Observed: 03/11/2025 9:31 AM Status: COMPLETED Source: [facility] ID: [id number] Author: SHEFALI RICH APRN.TRAINING LEAD Service: ? Author Type: Nurse Practitioner Type: Progress Notes Filed: 03/11/2025 09:47 Note Text: CC: Patient presents with: Recheck: Follow up L leg fluid build up HPI Malu Kitchen is a 79 year old female who presents today for left calf swelling and tenderness. Recording using [email or web address] software for draft documentation of the visit was discussed with the patient/authorized community health representative; all questions welcomed and answered. Patient/authorized community health representative agreed to proceed Left Calf Swelling and Tenderness: - Onset of symptoms approximately three weeks ago. - Swelling decreases overnight but worsens during the day with ambulation. - Denies chest pain, fever, or chills. - Baseline dyspnea; no new changes. Left Foot Surgery: - Underwent left foot surgery four weeks ago. - Post-operative follow-up with surgeon weekly since the procedure. - Denies concerns about incision healing or signs of infection with surgical site evaluated just this week - Did have disruption of coumadin usage pre and post surgery but currently back on coumadin REVIEW OF SYSTEMS See HPI PAST MEDICAL HISTORY Diagnosis Date Acquired hypothyroidism 01/23/2022 Acute gastritis without mention of hemorrhage Acute, but ill-defined, cerebrovascular disease AMNESIA (RETROGRADE) TRANSIENT GLOBAL 07/15/2007 This was along with the TIA that she had. Atrial fibrillation (HCC) Basal cell carcinoma 12/16/2023 scalp Bleeding gastrointestinal 09/2020 Centrilobular emphysema (HCC) 04/13/2020 Patient had PFTs in 2019 and was found to have moderately severe large air way vent defect, which was irreversible. This was associated with trapping of air And mild reduction in the diffusion capacity. She has more that 60 pack years smoking, but stopped in 2000 She is on Anoro ellipta and is doing well, good exercise tolerance does the bike mostly. Does good exercise at work, around 18,000 Complete rupture of rotator cuff 2006 Congestive heart failure, unspecified HF chronicity, unspecified heart failure type (HCC) 05/12/2023 Cystocele 07/29/2013 Diarrhea Diverticulosis of colon (without mention of hemorrhage) Gastrointestinal hemorrhage associated with anorectal source 11/22/2020 Was admitted in September 2020 with the red blood per rectum. At that time INR was 1.7 as she is on Coumadin, her hemoglobin was stable so no blood transfusion was required. She had a CT scan and contrast and was given IV fluids after which she developed some shortness of breath and was given Lasix and she was sent home the next day after an echo. The echo showed she had known traumatic tricuspid r Generalized osteoarthrosis, involving hand Hematoma of left hip 06/26/2017 Osteoarthrosis, unspecified whether generalized or localized, other specified sites Other unspecified back disorder 1998 Patient has chronic back pain,she has had a spinal fusion at L[facility] and problems with her discs PMH - PAST MEDICAL HISTORY OF hypertension PMH - PAST MEDICAL HISTORY OF hypercholesterolemia Pulmonary hypertension due to lung diseases and hypoxia (HCC) 06/23/2023 RA (rheumatoid arthritis) ([facility]) 2021 Sicca syndrome (HCC) Simple chronic bronchitis ([facility]) 03/26/[address] Chao at [facility]. She is on trilogy Ellipta. She has quit smoking in the past we encouraged her to continue to quit smoking. Stroke (HCC) x 2 last stroke 02/14/2016 TIA (transient ischemic attack) 12/16/2007 Unspecified inflammatory polyarthropathy PAST SURGICAL HISTORY Procedure Laterality Date ARTHRP ACETBLR/PROX FEM PROSTC AGRFT/ALGRFT 02/20/2015 Hip replacement, total COLONOSCOPY GEN ANES 11/22/2020 COLONOSCOPY W/BIOPSY SINGLE/MULTIPLE 10/03/2009 EGD 11/22/2020 EGD TRANSORAL BIOPSY SINGLE/MULTIPLE 10/13/2008 minimal gastritis HEART CATHETERIZATION 2009 OPEN REPAIR OF ROTATOR CUFF ACUTE 1996, 2001,2002 Rotator cuff repair-right shoulder OPEN REPAIR OF ROTATOR CUFF ACUTE 2007 Left PAST SURGICAL HISTORY OF 1998 L5-DIONICIO Spinal Fusion PAST SURGICAL HISTORY OF right foot x2, spur, neuroma PAST SURGICAL HISTORY OF 1967 cyst removed right breast PAST SURGICAL HISTORY OF 05/05/2014 Anterior colporrhaphy, Vaginal vault suspension per SUPeR trial ; Cystourethroscopy PAST SURGICAL HISTORY OF 10/2013 left shoulder replacement PAST SURGICAL HISTORY OF Right 09/21/2018 right reverse total shoulder arthroplasty [facility] REVISE MEDIAN N/CARPAL TUNNEL SURG Right 01/15/2024 Right Carpal tunnel release WRIST SURGERY HX Left 2018 removed 3 bones in wrist ALLERGIES Adhesive Tape (Rosins), Ibuprofen, and Vicodin [Hydrocodone-Acetaminophen] MEDICATIONS HYDROcodone-acetaminophen (NORCO) 5-325 mg per tablet Take 1 tablet by mouth every 8 hours as needed for pain for up to [address] (PROTONIX) 40 mg tablet Take 1 tablet by mouth daily before breakfast. Take on empty stomach, 1/2 hr before meal. ondansetron orally disintegrating (ZOFRAN ODT) 4 mg disintegrating tablet Take 1 tablet by mouth every 6 hours as needed for nausea/vomiting. furosemide (LASIX) 40 mg tablet Take 1 tablet by mouth once daily. Takes twice daily if with increased edema dilTIAZem CD (CARDIZEM CD) 180 mg 24 hr capsule Take 1 capsule by mouth once daily. potassium chloride SR (MICRO-K) 10 mEq CR capsule Take 2 capsules by mouth two times a day. atenolol (TENORMIN) 25 mg tablet Take 1 tablet by mouth two times a day. gabapentin (NEURONTIN) 300 mg capsule Take 1 capsule by mouth two times a day. zolpidem (AMBIEN) 10 mg Take 1 tablet by mouth at bedtime as needed for up to 180 days. warfarin (COUMADIN) 1 mg tablet Take 1 tablet by mouth once daily. Please take daily as directed empagliflozin (JARDIANCE) 10 mg tablet Take 1 tablet by mouth daily with breakfast. metOLazone (ZAROXOLYN) 2.5 mg tablet Take 1 tablet by mouth every other day. leflunomide (ARAVA) 10 mg tablet Take 1 tablet by mouth once daily. levothyroxine (SYNTHROID) 25 mcg tablet Take 1 tablet by mouth daily before breakfast. TRELEGY ELLIPTA 100-62.5-25 mcg inhalation powder Inhale 1 Puff as instructed once daily. Magnesium 30 mg tablet Take 1 tablet by mouth twice daily. calcium carbonate/vitamin d3(CALCIUM 600 + D(3) 600 MG (1,500)-200 UNIT TAB) Take one(1) tablet twice daily BY MOUTH. DAILY MULTIPLE TAB Take one(1) tablet daily BY MOUTH. FAMILY HISTORY Problem Relation Age of Onset Heart Mother [place] Heart Father [place] Diabetes Maternal Uncle Headache Sister SOCIAL HISTORY[1] PHYSICAL EXAM BP 122/70 Pulse 77 Resp 16 Wt 62.6 kg (138 lb) SpO2 91% BMI 28.27 kg/m? General Appearance: well appearing, in no acute distress, alert Lungs: Lungs clear to auscultation. No wheezing, rhonchi, rales. Heart: RRR without murmur, gallop, or rubs. No ectopy LLE: non-pitting edema to calf and de la fuente with tenderness. No redness but with chronic hyperpigmentation. Surgical site of foot not viewed as recently viewed and per patient no changes to area. Health maintenance reviewed with patient: Cervical Cancer Screening due on 04/25/2018 Medicare [facility] Annual Wellness Visit Never done Depression Screening due on 03/17/2025 Anxiety Screening due on 03/17/2025 DTaP,Tdap,Td Vaccine(2 - Td or Tdap) due on 09/23/2025 RSV Vaccine(1 - 1-dose 75+ series) due on 09/23/2025 Shingrix Vaccine(1 of 2) due on 09/23/2025 Influenza Vaccine(1) due on 03/28/2025 Annual PCP Team Chronic Disease Visit due on 01/25/2026 Hemoglobin/Hematocrit due on 01/25/2026 Serum Creatinine due on 03/04/2026 Diabetes Screening due on 03/04/2028 Bone Density Screening Completed Advance Directive Discussion Completed Hepatitis C Screening Completed Pneumococcal Vaccine: 50+ Completed Mammogram Screening Discontinued Colorectal Cancer Screening Discontinued DATA REVIEWED: No new labs Assessment/Plan 1. Swelling of extremity, left (M79.89) 2. Tenderness of left calf (M79.662) - Left calf swelling and tenderness for 3 weeks, worsening with ambulation and improving with elevation. High concern of DVT with recent surgery and disruption of coumadin - Differential includes DVT vs. post-surgical changes. - Order venous ultrasound of the left lower extremity today to rule out DVT. - If ultrasound is negative, refer to vascular specialist for further evaluation. - patient to call immediately for redness, increased swelling, signs of infection, or other concerns. 3. Alteration in anticoagulation (Z51.81) As above 4. History of recent surgery (Z98.890) See #1-2 - Left foot surgery 4 weeks ago with ongoing weekly follow-up by surgeon; incision healing appropriately with no signs of infection. Prescription instructions reviewed with patient as applicable. Potential red flag symptoms discussed with the patient. Reviewed appropriate action plan to take if red flag symptoms occur. Patient agreeable to treatment plan. Shefali Rich, DAVON.TRAINING LEAD [1] Social History Tobacco Use Smoking status: Former Current packs/day: 0.00 Average packs/day: 2.0 packs/day for 30.0 years (60.0 ttl pk-yrs) Types: Cigarettes Start date: 08/22/1970 Quit date: 08/22/2000 Years since quittin.5 Smokeless tobacco: Never Vaping Use Vaping status: Never Used Substance Use Topics Alcohol use: Not Currently Comment: very occasional Drug use: Not Currently Types: Marijuana CNOV Observed: 03/11/2025 9:20 AM Status: COMPLETED Source: [facility] Office Visit (INTMWS) MALU KITCHEN ([id number]) 1945 F Date Time Provider Department 03/11/25 9:20 AM SHEFALI RICH [facility] During your visit today, we recorded the following information about you: Pulse Respiration Blood pressure Weight 77/minute 16/minute 122/70 62.6 kg Shefali Rich APRN.TRAINING LEAD 03/11/2025 9:47 AM Signed CC: Patient presents with: Recheck: Follow up L leg fluid build up HPI Malu Kitchen is a 79 year old female who presents today for left calf swelling and tenderness. Recording using [email or web address] software for draft documentation of the visit was discussed with the patient/authorized community health representative; all questions welcomed and answered. Patient/authorized community health representative agreed to proceed Left Calf Swelling and Tenderness: - Onset of symptoms approximately three weeks ago. - Swelling decreases overnight but worsens during the day with ambulation. - Denies chest pain, fever, or chills. - Baseline dyspnea; no new changes. Left Foot Surgery: - Underwent left foot surgery four weeks ago. - Post-operative follow-up with surgeon weekly since the procedure. - Denies concerns about incision healing or signs of infection with surgical site evaluated just this week - Did have disruption of coumadin usage pre and post surgery but currently back on coumadin REVIEW OF SYSTEMS See HPI PAST MEDICAL HISTORY Diagnosis Date Acquired hypothyroidism 01/23/2022 Acute gastritis without mention of hemorrhage Acute, but ill-defined, cerebrovascular disease AMNESIA (RETROGRADE) TRANSIENT GLOBAL 07/15/2007 This was along with the TIA that she had. Atrial fibrillation (HCC) Basal cell carcinoma 12/16/2023 scalp Bleeding gastrointestinal 09/2020 Centrilobular emphysema (HCC) 04/13/2020 Patient had PFTs in 2019 and was found to have moderately severe large air way vent defect, which was irreversible. This was associated with trapping of air And mild reduction in the diffusion capacity. She has more that 60 pack years smoking, but stopped in 2000 She is on Anoro ellipta and is doing well, good exercise tolerance does the bike mostly. Does good exercise at work, around 18,000 Complete rupture of rotator cuff 2006 Congestive heart failure, unspecified HF chronicity, unspecified heart failure type (HCC) 05/12/2023 Cystocele 07/29/2013 Diarrhea Diverticulosis of colon (without mention of hemorrhage) Gastrointestinal hemorrhage associated with anorectal source 11/22/2020 Was admitted in September 2020 with the red blood per rectum. At that time INR was 1.7 as she is on Coumadin, her hemoglobin was stable so no blood transfusion was required. She had a CT scan and contrast and was given IV fluids after which she developed some shortness of breath and was given Lasix and she was sent home the next day after an echo. The echo showed she had known traumatic tricuspid r Generalized osteoarthrosis, involving hand Hematoma of left hip 06/26/2017 Osteoarthrosis, unspecified whether generalized or localized, other specified sites Other unspecified back disorder 1998 Patient has chronic back pain,she has had a spinal fusion at L-5 and problems with her discs PMH - PAST MEDICAL HISTORY OF hypertension PMH - PAST MEDICAL HISTORY OF hypercholesterolemia Pulmonary hypertension due to lung diseases and hypoxia (HCC) 06/23/2023 RA (rheumatoid arthritis) ([facility]) 2021 Sicca syndrome (HCC) Simple chronic bronchitis ([facility]) 03/26/[address] Chao at [facility] [place]. She is on trilogy Ellipta. She has quit smoking in the past we encouraged her to continue to quit smoking. Stroke (HCC) x 2 last stroke 02/14/2016 TIA (transient ischemic attack) 12/16/2007 Unspecified inflammatory polyarthropathy PAST SURGICAL HISTORY Procedure Laterality Date ARTHRP ACETBLR/PROX FEM PROSTC AGRFT/ALGRFT 02/20/2015 Hip replacement, total COLONOSCOPY GEN ANES 11/22/2020 COLONOSCOPY W/BIOPSY SINGLE/MULTIPLE 10/03/2009 EGD 11/22/2020 EGD TRANSORAL BIOPSY SINGLE/MULTIPLE 10/13/2008 minimal gastritis HEART CATHETERIZATION 2008 OPEN REPAIR OF ROTATOR CUFF ACUTE 1996, 2001,2002 Rotator cuff repair-right shoulder OPEN REPAIR OF ROTATOR CUFF ACUTE 2006 Left PAST SURGICAL HISTORY OF 1998 L5-DIONICIO Spinal Fusion PAST SURGICAL HISTORY OF right foot x2, spur, neuroma PAST SURGICAL HISTORY OF 1967 cyst removed right breast PAST SURGICAL HISTORY OF 05/05/2014 Anterior colporrhaphy, Vaginal vault suspension per SUPeR trial ; Cystourethroscopy PAST SURGICAL HISTORY OF 10/2013 left shoulder replacement PAST SURGICAL HISTORY OF Right 09/21/2018 right reverse total shoulder arthroplasty [facility] REVISE MEDIAN N/CARPAL TUNNEL SURG Right 01/15/2024 Right Carpal tunnel release WRIST SURGERY HX Left 2018 removed 3 bones in wrist ALLERGIES Adhesive Tape (Rosins), Ibuprofen, and Vicodin [Hydrocodone-Acetaminophen] MEDICATIONS HYDROcodone-acetaminophen (NORCO) 5-325 mg per tablet Take 1 tablet by mouth every 8 hours as needed for pain for up to [address] (PROTONIX) 40 mg tablet Take 1 tablet by mouth daily before breakfast. Take on empty stomach, 1/2 hr before meal. ondansetron orally disintegrating (ZOFRAN ODT) 4 mg disintegrating tablet Take 1 tablet by mouth every 6 hours as needed for nausea/vomiting. furosemide (LASIX) 40 mg tablet Take 1 tablet by mouth once daily. Takes twice daily if with increased edema dilTIAZem CD (CARDIZEM CD) 180 mg 24 hr capsule Take 1 capsule by mouth once daily. potassium chloride SR (MICRO-K) 10 mEq CR capsule Take 2 capsules by mouth two times a day. atenolol (TENORMIN) 25 mg tablet Take 1 tablet by mouth two times a day. gabapentin (NEURONTIN) 300 mg capsule Take 1 capsule by mouth two times a day. zolpidem (AMBIEN) 10 mg Take 1 tablet by mouth at bedtime as needed for up to 180 days. warfarin (COUMADIN) 1 mg tablet Take 1 tablet by mouth once daily. Please take daily as directed empagliflozin (JARDIANCE) 10 mg tablet Take 1 tablet by mouth daily with breakfast. metOLazone (ZAROXOLYN) 2.5 mg tablet Take 1 tablet by mouth every other day. leflunomide (ARAVA) 10 mg tablet Take 1 tablet by mouth once daily. levothyroxine (SYNTHROID) 25 mcg tablet Take 1 tablet by mouth daily before breakfast. TRELEGY ELLIPTA 100-62.5-25 mcg inhalation powder Inhale 1 Puff as instructed once daily. Magnesium 30 mg tablet Take 1 tablet by mouth twice daily. calcium carbonate/vitamin d3(CALCIUM 600 + D(3) 600 MG (1,500)-200 UNIT TAB) Take one(1) tablet twice daily BY MOUTH. DAILY MULTIPLE TAB Take one(1) tablet daily BY MOUTH. FAMILY HISTORY Problem Relation Age of Onset Heart Mother [place] Heart Father [place] Diabetes Maternal Uncle Headache Sister SOCIAL HISTORY[1] PHYSICAL EXAM BP 122/70 Pulse 77 Resp 16 Wt 62.6 kg (138 lb) SpO2 91% BMI 28.27 kg/m? General Appearance: well appearing, in no acute distress, alert Lungs: Lungs clear to auscultation. No wheezing, rhonchi, rales. Heart: RRR without murmur, gallop, or rubs. No ectopy LLE: non-pitting edema to calf and de la fuente with tenderness. No redness but with chronic hyperpigmentation. Surgical site of foot not viewed as recently viewed and per patient no changes to area. Health maintenance reviewed with patient: Cervical Cancer Screening due on 04/25/2018 Medicare Advantage Annual Wellness Visit Never done Depression Screening due on 03/17/2025 Anxiety Screening due on 03/17/2025 DTaP,Tdap,Td Vaccine(2 - Td or Tdap) due on 09/23/2025 RSV Vaccine(1 - 1-dose 75+ series) due on 09/23/2025 Shingrix Vaccine(1 of 2) due on 09/23/2025 Influenza Vaccine(1) due on 03/28/2025 Annual PCP Team Chronic Disease Visit due on 01/25/2026 Hemoglobin/Hematocrit due on 01/25/2026 Serum Creatinine due on 03/04/2026 Diabetes Screening due on 03/04/2028 Bone Density Screening Completed Advance Directive Discussion Completed Hepatitis C Screening Completed Pneumococcal Vaccine: 50+ Completed Mammogram Screening Discontinued Colorectal Cancer Screening Discontinued DATA REVIEWED: No new labs Assessment/Plan 1. Swelling of extremity, left (M79.89) 2. Tenderness of left calf (M79.662) - Left calf swelling and tenderness for 3 weeks, worsening with ambulation and improving with elevation. High concern of DVT with recent surgery and disruption of coumadin - Differential includes DVT vs. post-surgical changes. - Order venous ultrasound of the left lower extremity today to rule out DVT. - If ultrasound is negative, refer to vascular specialist for further evaluation. - patient to call immediately for redness, increased swelling, signs of infection, or other concerns. 3. Alteration in anticoagulation (Z51.81) As above 4. History of recent surgery (Z98.890) See #1-2 - Left foot surgery 4 weeks ago with ongoing weekly follow-up by surgeon; incision healing appropriately with no signs of infection. Prescription instructions reviewed with patient as applicable. Potential red flag symptoms discussed with the patient. Reviewed appropriate action plan to take if red flag symptoms occur. Patient agreeable to treatment plan. Shefali Rich APRN.TRAINING LEAD [1] Social History Tobacco Use Smoking status: Former Current packs/day: 0.00 Average packs/day: 2.0 packs/day for 30.0 years (60.0 ttl pk-yrs) Types: Cigarettes Start date: 08/22/1970 Quit date: 08/22/2000 Years since quittin.5 Smokeless tobacco: Never Vaping Use Vaping status: Never Used Substance Use Topics Alcohol use: Not Currently Comment: very occasional Drug use: Not Currently Types: Marijuana Shefali Rich APRN.TRAINING LEAD 03/11/2025 9:37 AM Signed - Complete a venous ultrasound of your left lower leg today to check for a blood clot. - If the ultrasound is negative for a clot, you will be referred to a vascular specialist to evaluate the fluid-pump function in your leg. - Continue taking your Coumadin as prescribed. - Monitor for any new chest pain, shortness of breath, fever, or chills; seek medical attention right away if these occur. Allergies As of Date: 03/11/2025 Noted Allergy Reaction ADHESIVE TAPE (ROSINS) 08/22/2005 2 - Rash IBUPROFEN 06/06/2014 Comments: Pt on coumadin VICODIN (HYDROCODONE-ACETAMINOPHE*12/15/2014 8 - GI Upset Date Reviewed: 03/11/2025 Reviewed by: Shefali Rich APRN.TRAINING LEAD - Fully Assessed Reason for Visit: Recheck [92] Cmt: Follow up L leg fluid build up Primary Visit Diagnosis:Swelling of extremity, left [M79.89] Other Visit Diagnoses:Tenderness of left calf [M79.662] Alteration in anticoagulation [Z51.81, Z79.01] History of recent surgery [Z98.890] Order(s):US LEG VEIN DVT UNL VAS LAB [7353781] Order #: [id number] FUTURE Prescriptions as of 03/11/2025 - HYDROcodone-acetaminophen (NORCO) 5-325 mg per tablet Take 1 tablet by mouth every 8 hours as needed for pain for up to 30 days. - pantoprazole DR (PROTONIX) 40 mg tablet Take 1 tablet by mouth daily before breakfast. Take on empty stomach, 1/2 hr before meal. - ondansetron orally disintegrating (ZOFRAN ODT) 4 mg disintegrating tablet Take 1 tablet by mouth every 6 hours as needed for nausea/vomiting. - furosemide (LASIX) 40 mg tablet Take 1 tablet by mouth once daily. Takes twice daily if with increased edema - dilTIAZem CD (CARDIZEM CD) 180 mg 24 hr capsule Take 1 capsule by mouth once daily. - potassium chloride SR (MICRO-K) 10 mEq CR capsule Take 2 capsules by mouth two times a day. - atenolol (TENORMIN) 25 mg tablet Take 1 tablet by mouth two times a day. - gabapentin (NEURONTIN) 300 mg capsule Take 1 capsule by mouth two times a day. - zolpidem (AMBIEN) 10 mg Take 1 tablet by mouth at bedtime as needed for up to 180 days. - warfarin (COUMADIN) 1 mg tablet Take 1 tablet by mouth once daily. Please take daily as directed - empagliflozin (JARDIANCE) 10 mg tablet Take 1 tablet by mouth daily with breakfast. - metOLazone (ZAROXOLYN) 2.5 mg tablet Take 1 tablet by mouth every other day. - leflunomide (ARAVA) 10 mg tablet Take 1 tablet by mouth once daily. - levothyroxine (SYNTHROID) 25 mcg tablet Take 1 tablet by mouth daily before breakfast. - TRELEGY ELLIPTA 100-62.5-25 mcg inhalation powder Inhale 1 Puff as instructed once daily. - Magnesium 30 mg tablet Take 1 tablet by mouth twice daily. - calcium carbonate/vitamin d3(CALCIUM 600 + D(3) 600 MG (1,500)-200 UNIT TAB) Take one(1) tablet twice daily BY MOUTH. - DAILY MULTIPLE TAB Take one(1) tablet daily BY MOUTH. Problem List As Of Date 03/11/2025 Noted Resolved Osteoarthrosis, unspecified whether generalized* 03/11/2017 AMNESIA (RETROGRADE) TRANSIENT GLOBAL [G45.4] 07/15/2007 06/26/2023 HIGH BLOOD PRESSURE-NO HYPERTENSN [R03.0] 07/15/2007 03/11/2017 INSOMNIA [G47.00] 07/15/2007 TOBACCO USE - PERSONAL HX [Z87.891] 07/15/2007 03/11/2017 Hyperlipidemia [E78.5] 08/20/2007 TIA (transient ischemic attack) [G45.9] 12/16/2007 06/26/2023 Acute gastritis with hemorrhage [K29.01] 10/13/2008 03/11/2017 Acute gastritis without mention of hemorrhage [*10/13/2008 03/11/2017 Hyperlipemia [E78.5] 06/16/2009 02/02/2016 Atrial Fibrillation [I48.91] 06/16/2009 12/16/2014 Sicca syndrome (HCC) [M35.00] 03/11/2017 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] 03/11/2017 Generalized Osteoarthrosis, Involving Hand [M15* Diarrhea [R19.7] 10/03/2009 12/16/2014 Diverticulosis of colon (without mention of hem*10/03/2009 06/26/2023 Internal hemorrhoids without mention of complic*10/03/2009 03/11/2017 Mitral regurgitation [I34.0] 09/02/2011 Right wrist pain [M25.531] 12/15/2012 03/11/2017 Uterovaginal prolapse [N81.4] 07/29/2013 03/11/2017 Cystocele [HNR8097] 07/29/2013 06/26/2023 Rotator cuff tear arthropathy of both shoulders*08/24/2013 PMB (postmenopausal bleeding) [N95.0] 09/07/2013 03/11/2017 Atrial fibrillation (HCC) [I48.91] 12/16/2014 Psoas tendinitis of right side [M76.11] 12/05/2015 03/11/2017 Gastroesophageal reflux disease without esophag*03/11/2016 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 *07/08/2016 Bilateral hip pain [M25.551, M25.552] 03/11/2017 S/P lumbar fusion [Z98.1] 06/02/2017 Abrasion of left forearm [S50.812A] 06/26/2017 03/18/2023 Laceration of left forearm [S51.812A] 06/26/2017 03/18/2023 Contusion of left hand [S60.222A] 06/26/2017 03/18/2023 Hematoma of left hip [S70.02XA] 06/26/2017 06/26/2023 Contusion of left knee [S80.02XA] 06/26/2017 03/18/2023 Primary osteoarthritis involving multiple joint*03/24/2018 Centrilobular emphysema (HCC) [J43.2] 04/13/2020 Gastrointestinal hemorrhage associated with ano*11/22/2020 06/26/2023 Iron deficiency anemia due to chronic blood los*11/22/2020 Pinched nerve in neck [G58.9] 01/30/2021 06/05/2021 Simple chronic bronchitis (HCC) [J41.0] 03/26/2021 Nonrheumatic tricuspid valve regurgitation [I36*03/26/2021 Congestive heart failure, unspecified HF chroni*05/12/2023 Acute respiratory failure with hypoxia and hype*05/12/2023 03/17/2024 Pulmonary hypertension due to lung diseases and*06/23/2023 Acquired hypothyroidism [E03.9] 01/23/2022 Rheumatoid arthritis with positive rheumatoid f*09/17/2023 PAH (pulmonary artery hypertension) (HCC) [I27.*07/01/2024 Other instructions from your clinician: - Complete a venous ultrasound of your left lower leg today to check for a blood clot. - If the ultrasound is negative for a clot, you will be referred to a vascular specialist to evaluate the fluid-pump function in your leg. - Continue taking your Coumadin as prescribed. - Monitor for any new chest pain, shortness of breath, fever, or chills; seek medical attention right away if these occur. Level of Service: OFFICE/OUTPATIENT ESTABLISHED LOW MDM 20 MIN [76478] Additional E/M codes: VISIT CPLX INHERENT EANDM ASSOC WITH MED * Encounter Status:Closed by SHEFALI RICH on 03/11/25 CNPN Observed: 03/09/2025 12:00 AM Status: COMPLETED Source: [facility] Telephone (INTMWS) MALU KITCHEN ([id number]) 1945 F Date Time Provider Department 03/09/25 ANDRA RODRIGUES INTMWS During your visit today, we recorded the following information about you: Zahra Prater LPN 03/09/2025 8:42 AM Addendum Last INR: 3.3 03/08/2025 per home INR Current dose of coumadin is: . 2 mg MWF; 1 mg all other days Last date of dose change: 02/07/25. Previous INR (date and result): 03/02/25 was 2.5 Additional Clinical Information or narrative: INR goal is 2-3. Per home INR pt checks this weekly Message left for pt to return call to a nurse to verify pt findings and coumadin dose. Sonia Perez RN 03/09/2025 8:54 AM Signed Patient calls back and states that she had surgery on 02/07. Patient has no changes in diet or medication. Patient has no bleeding or bruising noted. Last INR: 3.3 03/08/2025 per home INR Current dose of coumadin is: . 2 mg MWF; 1 mg all other days Last date of dose change: 02/07/25. Previous INR (date and result): 03/02/25 was 2.5 Additional Clinical Information or narrative: INR goal is 2-3. Andra Rodrigues MD 03/09/2025 12:35 PM Signed Hold medication today and start new regimen of 1 mg all days of week except on Tuesdays and Fridays please take 2 mgs Andra Quevedo MD, Jane, MA 03/09/2025 2:04 PM Signed Patient notified. Melissa Luz MA 03/09/2025 2:24 PM Signed Tracker updated. Melissa Luz MA Allergies As of Date: 03/09/2025 Noted Allergy Reaction ADHESIVE TAPE (ROSINS) 08/22/2005 2 - Rash IBUPROFEN 06/06/2014 Comments: Pt on coumadin VICODIN (HYDROCODONE-ACETAMINOPHE*12/15/2014 8 - GI Upset Date Reviewed: 01/25/2025 Reviewed by: Melissa Luz MA - Fully Assessed Reason for Visit: Anticoagulation [8] Order(s):PROTHROMBIN TIME [SQPT] Order #: [id number] Prescriptions as of 03/09/2025 - pantoprazole DR (PROTONIX) 40 mg tablet Take 1 tablet by mouth daily before breakfast. Take on empty stomach, 1/2 hr before meal. - ondansetron orally disintegrating (ZOFRAN ODT) 4 mg disintegrating tablet Take 1 tablet by mouth every 6 hours as needed for nausea/vomiting. - furosemide (LASIX) 40 mg tablet Take 1 tablet by mouth once daily. Takes twice daily if with increased edema - HYDROcodone-acetaminophen (NORCO) 5-325 mg per tablet Take 1 tablet by mouth every 8 hours as needed for pain for up to 30 days. Patient should start on January 25, 2025. - dilTIAZem CD (CARDIZEM CD) 180 mg 24 hr capsule Take 1 capsule by mouth once daily. - potassium chloride SR (MICRO-K) 10 mEq CR capsule Take 2 capsules by mouth two times a day. - atenolol (TENORMIN) 25 mg tablet Take 1 tablet by mouth two times a day. - gabapentin (NEURONTIN) 300 mg capsule Take 1 capsule by mouth two times a day. - zolpidem (AMBIEN) 10 mg Take 1 tablet by mouth at bedtime as needed for up to 180 days. - warfarin (COUMADIN) 1 mg tablet Take 1 tablet by mouth once daily. Please take daily as directed - empagliflozin (JARDIANCE) 10 mg tablet Take 1 tablet by mouth daily with breakfast. - metOLazone (ZAROXOLYN) 2.5 mg tablet Take 1 tablet by mouth every other day. - leflunomide (ARAVA) 10 mg tablet Take 1 tablet by mouth once daily. - levothyroxine (SYNTHROID) 25 mcg tablet Take 1 tablet by mouth daily before breakfast. - TRELEGY ELLIPTA 100-62.5-25 mcg inhalation powder Inhale 1 Puff as instructed once daily. - Magnesium 30 mg tablet Take 1 tablet by mouth twice daily. - calcium carbonate/vitamin d3(CALCIUM 600 + D(3) 600 MG (1,500)-200 UNIT TAB) Take one(1) tablet twice daily BY MOUTH. - DAILY MULTIPLE TAB Take one(1) tablet daily BY MOUTH. Problem List As Of Date 03/09/2025 Noted Resolved Osteoarthrosis, unspecified whether generalized* 03/11/2017 AMNESIA (RETROGRADE) TRANSIENT GLOBAL [G45.4] 07/15/2007 06/26/2023 HIGH BLOOD PRESSURE-NO HYPERTENSN [R03.0] 07/15/2007 03/11/2017 INSOMNIA [G47.00] 07/15/2007 TOBACCO USE - PERSONAL HX [Z87.891] 07/15/2007 03/11/2017 Hyperlipidemia [E78.5] 08/20/2007 TIA (transient ischemic attack) [G45.9] 12/16/2007 06/26/2023 Acute gastritis with hemorrhage [K29.01] 10/13/2008 03/11/2017 Acute gastritis without mention of hemorrhage [*10/13/2008 03/11/2017 Hyperlipemia [E78.5] 06/16/2009 02/02/2016 Atrial Fibrillation [I48.91] 06/16/2009 12/16/2014 Sicca syndrome (HCC) [M35.00] 03/11/2017 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] 03/11/2017 Generalized Osteoarthrosis, Involving Hand [M15* Diarrhea [R19.7] 10/03/2009 12/16/2014 Diverticulosis of colon (without mention of hem*10/03/2009 06/26/2023 Internal hemorrhoids without mention of complic*10/03/2009 03/11/2017 Mitral regurgitation [I34.0] 09/02/2011 Right wrist pain [M25.531] 12/15/2012 03/11/2017 Uterovaginal prolapse [N81.4] 07/29/2013 03/11/2017 Cystocele [KSM4825] 07/29/2013 06/26/2023 Rotator cuff tear arthropathy of both shoulders*08/24/2013 PMB (postmenopausal bleeding) [N95.0] 09/07/2013 03/11/2017 Atrial fibrillation (HCC) [I48.91] 12/16/2014 Psoas tendinitis of right side [M76.11] 12/05/2015 03/11/2017 Gastroesophageal reflux disease without esophag*03/11/2016 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 *07/08/2016 Bilateral hip pain [M25.551, M25.552] 03/11/2017 S/P lumbar fusion [Z98.1] 06/02/2017 Abrasion of left forearm [S50.812A] 06/26/2017 03/18/2023 Laceration of left forearm [S51.812A] 06/26/2017 03/18/2023 Contusion of left hand [S60.222A] 06/26/2017 03/18/2023 Hematoma of left hip [S70.02XA] 06/26/2017 06/26/2023 Contusion of left knee [S80.02XA] 06/26/2017 03/18/2023 Primary osteoarthritis involving multiple joint*03/24/2018 Centrilobular emphysema (HCC) [J43.2] 04/13/2020 Gastrointestinal hemorrhage associated with ano*11/22/2020 06/26/2023 Iron deficiency anemia due to chronic blood los*11/22/2020 Pinched nerve in neck [G58.9] 01/30/2021 06/05/2021 Simple chronic bronchitis (HCC) [J41.0] 03/26/2021 Nonrheumatic tricuspid valve regurgitation [I36*03/26/2021 Congestive heart failure, unspecified HF chroni*05/12/2023 Acute respiratory failure with hypoxia and hype*05/12/2023 03/17/2024 Pulmonary hypertension due to lung diseases and*06/23/2023 Acquired hypothyroidism [E03.9] 01/23/2022 Rheumatoid arthritis with positive rheumatoid f*09/17/2023 PAH (pulmonary artery hypertension) (HCC) [I27.*07/01/2024 Encounter Status:Closed by TAMMI DOTSON on 03/09/25 BAS METAB 2000 PNL SERPL Collected: 02/2025 11:45 AM Status: F [facility] Order Comment: Specimen Type : BLOOD SPECIMEN Ordering Facility: [facility] Address: [address], [place] [address] TYPE CODE TESTS RESULT OUT OF RANGE REFERENCE UNITS LAB 2345-7(LOINC) Glucose SerPl-mCnc 84 74-99 mg/dL Result Comment: The [place] Diabetes Association (ADA) provides guidance for cutoff values for fasting glucose and random glucose. The ADA defines fasting as no caloric intake for at least 8 hours. Fasting plasma glucose results between 100 to 125 mg/dL indicate increased risk for diabetes (prediabetes). Fasting plasma glucose results greater than or equal to 126 mg/dL meet the criteria for diagnosis of diabetes. In the absence of unequivocal hyperglycemia, results should be confirmed by repeat testing. In a patient with classic symptoms of hyperglycemia or hyperglycemic crisis, random plasma glucose results greater than or equal to 200 mg/dL meet the criteria for diagnosis of diabetes. Reference: Standards of Medical Care in Diabetes 2016, [place] [employer] Association. Diabetes Care. 2016.39(Suppl 1). LAB 3094-0(LOINC) BUN SerPl-mCnc 21 7-21 mg/dL LAB 2160-0(LOINC) Creat SerPl-mCnc 1.18 High 0.58-0.96 mg/dL LAB 2951-2(LOINC) Sodium SerPl-sCnc 141 136-144 mmol/L LAB 2823-3(LOINC) Potassium SerPl-sCnc 5.0 3.7-5.1 mmol/L LAB 2075-0(LOINC) Chloride SerPl-sCnc 100 98-107 mmol/L LAB 2028-9(LOINC) CO2 SerPl-sCnc 27 22-30 mmol/L LAB 77072-9(LOINC) Anion Gap SerPl-sCnc 14 8-15 mmol/L LAB 61979-6(LOINC) Calcium SerPl-mCnc 9.7 8.5-10.2 mg/dL LAB 00386-0(LOINC) eGFRcr SerPlBld CKD-EPI 2020 48 Low >=60 mL/min/1. 73m??? Result Comment: Estimated Gl omerular Filtration Rate (eGFR) is calculated using the 2020 CKD-EPI creatinine equation. This equation utilizes serum creatinine, sex, and age as parameters. The creatinine assay has traceable calibration to isotope dilution-mass spectrometry. Refer to KDIGO guidelines for clinical interpretation. In patients with unstable renal function, e.g. those with acute kidney injury, the eGFR may not accurately reflect actual GFR. Performed By: #### [id number] # ### [facility] CLIA [id number] [address] [place] [address] OF [facility] CNPN Observed: 03/02/2025 12:00 AM Status: COMPLETED Source: [facility] Telephone (INTMWS) MALU KITCHEN ([id number]) 1945 F Date Time Provider Department 03/02/25 ANDRA RODRIGUES INTSILVINA During your visit today, we recorded the following information about you: Zahra Prater LPN 03/02/2025 11:03 AM Signed Last INR: 2.5 03/02/2025 per home INR Current dose of coumadin is: 2 mgs on MWF and 1 mg the rest of the week Last date of dose change: 02/07/25. Previous INR (date and result): 02/23/25 was 2.5 Additional Clinical Information or narrative: INR goal is 2-3 Per home INR pt checks this weekly. Pt finding are negative although pt says did finish antibiotic 02/28/25. Marlene Easton RN 03/02/2025 7:40 PM Signed Tammi Dotson MA JD Left message on VM. 03/02/25 7:05 PM Note ----- Message from Andra Rodrigues MD sent at 03/02/2025 5:08 PM EDT ----- Cont the same Marlene Easton RN 03/02/2025 7:39 PM Addendum Pt returned the call and notified to continue the same dosage. Per note below, pt checks home INR weekly Allergies As of Date: 03/02/2025 Noted Allergy Reaction ADHESIVE TAPE (ROSINS) 08/22/2005 2 - Rash IBUPROFEN 06/06/2014 Comments: Pt on coumadin VICODIN (HYDROCODONE-ACETAMINOPHE*12/15/2014 8 - GI Upset Date Reviewed: 01/25/2025 Reviewed by: Melissa Luz MA - Fully Assessed Reason for Visit: Anticoagulation [8] Order(s):PROTHROMBIN TIME [SQPT] Order #: [id number] Prescriptions as of 03/02/2025 - pantoprazole DR (PROTONIX) 40 mg tablet Take 1 tablet by mouth daily before breakfast. Take on empty stomach, 1/2 hr before meal. - ondansetron orally disintegrating (ZOFRAN ODT) 4 mg disintegrating tablet Take 1 tablet by mouth every 6 hours as needed for nausea/vomiting. - furosemide (LASIX) 40 mg tablet Take 1 tablet by mouth once daily. Takes twice daily if with increased edema - HYDROcodone-acetaminophen (NORCO) 5-325 mg per tablet Take 1 tablet by mouth every 8 hours as needed for pain for up to 30 days. Patient should start on January 25, 2025. - dilTIAZem CD (CARDIZEM CD) 180 mg 24 hr capsule Take 1 capsule by mouth once daily. - potassium chloride SR (MICRO-K) 10 mEq CR capsule Take 2 capsules by mouth two times a day. - atenolol (TENORMIN) 25 mg tablet Take 1 tablet by mouth two times a day. - gabapentin (NEURONTIN) 300 mg capsule Take 1 capsule by mouth two times a day. - zolpidem (AMBIEN) 10 mg Take 1 tablet by mouth at bedtime as needed for up to 180 days. - warfarin (COUMADIN) 1 mg tablet Take 1 tablet by mouth once daily. Please take daily as directed - empagliflozin (JARDIANCE) 10 mg tablet Take 1 tablet by mouth daily with breakfast. - metOLazone (ZAROXOLYN) 2.5 mg tablet Take 1 tablet by mouth every other day. - leflunomide (ARAVA) 10 mg tablet Take 1 tablet by mouth once daily. - levothyroxine (SYNTHROID) 25 mcg tablet Take 1 tablet by mouth daily before breakfast. - TRELEGY ELLIPTA 100-62.5-25 mcg inhalation powder Inhale 1 Puff as instructed once daily. - Magnesium 30 mg tablet Take 1 tablet by mouth twice daily. - calcium carbonate/vitamin d3(CALCIUM 600 + D(3) 600 MG (1,500)-200 UNIT TAB) Take one(1) tablet twice daily BY MOUTH. - DAILY MULTIPLE TAB Take one(1) tablet daily BY MOUTH. Problem List As Of Date 03/02/2025 Noted Resolved Osteoarthrosis, unspecified whether generalized* 03/11/2017 AMNESIA (RETROGRADE) TRANSIENT GLOBAL [G45.4] 07/15/2007 06/26/2023 HIGH BLOOD PRESSURE-NO HYPERTENSN [R03.0] 07/15/2007 03/11/2017 INSOMNIA [G47.00] 07/15/2007 TOBACCO USE - PERSONAL HX [Z87.891] 07/15/2007 03/11/2017 Hyperlipidemia [E78.5] 08/20/2007 TIA (transient ischemic attack) [G45.9] 12/16/2007 06/26/2023 Acute gastritis with hemorrhage [K29.01] 10/13/2008 03/11/2017 Acute gastritis without mention of hemorrhage [*10/13/2008 03/11/2017 Hyperlipemia [E78.5] 06/16/2009 02/02/2016 Atrial Fibrillation [I48.91] 06/16/2009 12/16/2014 Sicca syndrome (HCC) [M35.00] 03/11/2017 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] 03/11/2017 Generalized Osteoarthrosis, Involving Hand [M15* Diarrhea [R19.7] 10/03/2009 12/16/2014 Diverticulosis of colon (without mention of hem*10/03/2009 06/26/2023 Internal hemorrhoids without mention of complic*10/03/2009 03/11/2017 Mitral regurgitation [I34.0] 09/02/2011 Right wrist pain [M25.531] 12/15/2012 03/11/2017 Uterovaginal prolapse [N81.4] 07/29/2013 03/11/2017 Cystocele [JYJ3933] 07/29/2013 06/26/2023 Rotator cuff tear arthropathy of both shoulders*08/24/2013 PMB (postmenopausal bleeding) [N95.0] 09/07/2013 03/11/2017 Atrial fibrillation (HCC) [I48.91] 12/16/2014 Psoas tendinitis of right side [M76.11] 12/05/2015 03/11/2017 Gastroesophageal reflux disease without esophag*03/11/2016 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 *07/08/2016 Bilateral hip pain [M25.551, M25.552] 03/11/2017 S/P lumbar fusion [Z98.1] 06/02/2017 Abrasion of left forearm [S50.812A] 06/26/2017 03/18/2023 Laceration of left forearm [S51.812A] 06/26/2017 03/18/2023 Contusion of left hand [S60.222A] 06/26/2017 03/18/2023 Hematoma of left hip [S70.02XA] 06/26/2017 06/26/2023 Contusion of left knee [S80.02XA] 06/26/2017 03/18/2023 Primary osteoarthritis involving multiple joint*03/24/2018 Centrilobular emphysema (HCC) [J43.2] 04/13/2020 Gastrointestinal hemorrhage associated with ano*11/22/2020 06/26/2023 Iron deficiency anemia due to chronic blood los*11/22/2020 Pinched nerve in neck [G58.9] 01/30/2021 06/05/2021 Simple chronic bronchitis (HCC) [J41.0] 03/26/2021 Nonrheumatic tricuspid valve regurgitation [I36*03/26/2021 Congestive heart failure, unspecified HF chroni*05/12/2023 Acute respiratory failure with hypoxia and hype*05/12/2023 03/17/2024 Pulmonary hypertension due to lung diseases and*06/23/2023 Acquired hypothyroidism [E03.9] 01/23/2022 Rheumatoid arthritis with positive rheumatoid f*09/17/2023 PAH (pulmonary artery hypertension) (HCC) [I27.*07/01/2024 Encounter Status:Closed by MARLENE EASTON on 03/02/25 [place]EYNNE Observed: 02/23/2025 12:00 AM Status: COMPLETED Source: [facility] Telephone (INTMWS) MALU KITCHEN ([id number]) 1945 F Date Time Provider Department 02/23/25 ANDRA RODRIGUES INTMWS During your visit today, we recorded the following information about you: Melissa Luz MA 02/23/2025 5:04 PM Signed Current INR: 02/23/25 2.2 Current dose of coumadin is: 2 mgs on MWF and 1 mg the rest of the week. Previous INR (date and result): 02/07/25 1.4 Additional Clinical Information or narrative: Andra John MD 02/23/2025 5:52 PM Signed Cont the same and recheck in 2 weeks Andra Quevedo MD, Brittany L, MA 02/24/2025 8:22 AM Signed Patient active MyChart. Patient notified via [employer] message. Melissa Luz MA Allergies As of Date: 02/23/2025 Noted Allergy Reaction ADHESIVE TAPE (ROSINS) 08/22/2005 2 - Rash IBUPROFEN 06/06/2014 Comments: Pt on coumadin VICODIN (HYDROCODONE-ACETAMINOPHE*12/15/2014 8 - GI Upset Date Reviewed: 01/25/2025 Reviewed by: Melissa Luz MA - Fully Assessed Reason for Visit: Anticoagulation [8] Prescriptions as of 02/24/2025 - ondansetron orally disintegrating (ZOFRAN ODT) 4 mg disintegrating tablet Take 1 tablet by mouth every 6 hours as needed for nausea/vomiting. - furosemide (LASIX) 40 mg tablet Take 1 tablet by mouth once daily. Takes twice daily if with increased edema - HYDROcodone-acetaminophen (NORCO) 5-325 mg per tablet Take 1 tablet by mouth every 8 hours as needed for pain for up to 30 days. Patient should start on January 25, 2025. - dilTIAZem CD (CARDIZEM CD) 180 mg 24 hr capsule Take 1 capsule by mouth once daily. - potassium chloride SR (MICRO-K) 10 mEq CR capsule Take 2 capsules by mouth two times a day. - atenolol (TENORMIN) 25 mg tablet Take 1 tablet by mouth two times a day. - gabapentin (NEURONTIN) 300 mg capsule Take 1 capsule by mouth two times a day. - zolpidem (AMBIEN) 10 mg Take 1 tablet by mouth at bedtime as needed for up to 180 days. - warfarin (COUMADIN) 1 mg tablet Take 1 tablet by mouth once daily. Please take daily as directed - empagliflozin (JARDIANCE) 10 mg tablet Take 1 tablet by mouth daily with breakfast. - metOLazone (ZAROXOLYN) 2.5 mg tablet Take 1 tablet by mouth every other day. - leflunomide (ARAVA) 10 mg tablet Take 1 tablet by mouth once daily. - levothyroxine (SYNTHROID) 25 mcg tablet Take 1 tablet by mouth daily before breakfast. - pantoprazole DR (PROTONIX) 40 mg tablet Take 1 tablet by mouth daily before breakfast. Take on empty stomach, 1/2 hr before meal. - TRELEGY ELLIPTA 100-62.5-25 mcg inhalation powder Inhale 1 Puff as instructed once daily. - Magnesium 30 mg tablet Take 1 tablet by mouth twice daily. - calcium carbonate/vitamin d3(CALCIUM 600 + D(3) 600 MG (1,500)-200 UNIT TAB) Take one(1) tablet twice daily BY MOUTH. - DAILY MULTIPLE TAB Take one(1) tablet daily BY MOUTH. Problem List As Of Date 02/23/2025 Noted Resolved Osteoarthrosis, unspecified whether generalized* 03/11/2017 AMNESIA (RETROGRADE) TRANSIENT GLOBAL [G45.4] 07/15/2007 06/26/2023 HIGH BLOOD PRESSURE-NO HYPERTENSN [R03.0] 07/15/2007 03/11/2017 INSOMNIA [G47.00] 07/15/2007 TOBACCO USE - PERSONAL HX [Z87.891] 07/15/2007 03/11/2017 Hyperlipidemia [E78.5] 08/20/2007 TIA (transient ischemic attack) [G45.9] 12/16/2007 06/26/2023 Acute gastritis with hemorrhage [K29.01] 10/13/2008 03/11/2017 Acute gastritis without mention of hemorrhage [*10/13/2008 03/11/2017 Hyperlipemia [E78.5] 06/16/2009 02/02/2016 Atrial Fibrillation [I48.91] 06/16/2009 12/16/2014 Sicca syndrome (HCC) [M35.00] 03/11/2017 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] 03/11/2017 Generalized Osteoarthrosis, Involving Hand [M15* Diarrhea [R19.7] 10/03/2009 12/16/2014 Diverticulosis of colon (without mention of hem*10/03/2009 06/26/2023 Internal hemorrhoids without mention of complic*10/03/2009 03/11/2017 Mitral regurgitation [I34.0] 09/02/2011 Right wrist pain [M25.531] 12/15/2012 03/11/2017 Uterovaginal prolapse [N81.4] 07/29/2013 03/11/2017 Cystocele [NRP5694] 07/29/2013 06/26/2023 Rotator cuff tear arthropathy of both shoulders*08/24/2013 PMB (postmenopausal bleeding) [N95.0] 09/07/2013 03/11/2017 Atrial fibrillation (HCC) [I48.91] 12/16/2014 Psoas tendinitis of right side [M76.11] 12/05/2015 03/11/2017 Gastroesophageal reflux disease without esophag*03/11/2016 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 *07/08/2016 Bilateral hip pain [M25.551, M25.552] 03/11/2017 S/P lumbar fusion [Z98.1] 06/02/2017 Abrasion of left forearm [S50.812A] 06/26/2017 03/18/2023 Laceration of left forearm [S51.812A] 06/26/2017 03/18/2023 Contusion of left hand [S60.222A] 06/26/2017 03/18/2023 Hematoma of left hip [S70.02XA] 06/26/2017 06/26/2023 Contusion of left knee [S80.02XA] 06/26/2017 03/18/2023 Primary osteoarthritis involving multiple joint*03/24/2018 Centrilobular emphysema (HCC) [J43.2] 04/13/2020 Gastrointestinal hemorrhage associated with ano*11/22/2020 06/26/2023 Iron deficiency anemia due to chronic blood los*11/22/2020 Pinched nerve in neck [G58.9] 01/30/2021 06/05/2021 Simple chronic bronchitis (HCC) [J41.0] 03/26/2021 Nonrheumatic tricuspid valve regurgitation [I36*03/26/2021 Congestive heart failure, unspecified HF chroni*05/12/2023 Acute respiratory failure with hypoxia and hype*05/12/2023 03/17/2024 Pulmonary hypertension due to lung diseases and*06/23/2023 Acquired hypothyroidism [E03.9] 01/23/2022 Rheumatoid arthritis with positive rheumatoid f*09/17/2023 PAH (pulmonary artery hypertension) (HCC) [I27.*07/01/2024 Encounter Status:Closed by MELISSA LUZ on 02/24/25 KINGAN Observed: 02/16/2025 12:00 AM Status: COMPLETED Source: [facility] Telephone (INTMWS) MALU KITCHEN ([id number]) 1945 F Date Time Provider Department 02/16/25 ANDRA RODRIGUES INTMWS During your visit today, we recorded the following information about you: Melvi Coelho MA 02/16/2025 3:18 PM Signed Last INR: INR (POCT) 1.4 02/07/2025 Current dose of coumadin is: 1 mg 6 days a week and 2mg one day. Last date of dose change: 01/31. Previous INR (date and result): 01/27 2.3 DEE Marroquin Chitra, MD 02/16/2025 5:27 PM Signed Please ask her to take 2 mgs on MWF and 1 mgs the rest of the week. Recheck next week Regards, Tammi Ardon MD, MA 02/16/2025 6:14 PM Signed Patient notified. Allergies As of Date: 02/16/2025 Noted Allergy Reaction ADHESIVE TAPE (ROSINS) 08/22/2005 2 - Rash IBUPROFEN 06/06/2014 Comments: Pt on coumadin VICODIN (HYDROCODONE-ACETAMINOPHE*12/15/2014 8 - GI Upset Date Reviewed: 01/25/2025 Reviewed by: Melissa Luz MA - Fully Assessed Reason for Visit: Anticoagulation [8] Order(s):PROTHROMBIN TIME [SQPT] Order #: [id number] Prescriptions as of 02/16/2025 - ondansetron orally disintegrating (ZOFRAN ODT) 4 mg disintegrating tablet Take 1 tablet by mouth every 6 hours as needed for nausea/vomiting. - furosemide (LASIX) 40 mg tablet Take 1 tablet by mouth once daily. Takes twice daily if with increased edema - HYDROcodone-acetaminophen (NORCO) 5-325 mg per tablet Take 1 tablet by mouth every 8 hours as needed for pain for up to 30 days. Patient should start on January 25, 2025. - dilTIAZem CD (CARDIZEM CD) 180 mg 24 hr capsule Take 1 capsule by mouth once daily. - potassium chloride SR (MICRO-K) 10 mEq CR capsule Take 2 capsules by mouth two times a day. - atenolol (TENORMIN) 25 mg tablet Take 1 tablet by mouth two times a day. - gabapentin (NEURONTIN) 300 mg capsule Take 1 capsule by mouth two times a day. - zolpidem (AMBIEN) 10 mg Take 1 tablet by mouth at bedtime as needed for up to 180 days. - warfarin (COUMADIN) 1 mg tablet Take 1 tablet by mouth once daily. Please take daily as directed - empagliflozin (JARDIANCE) 10 mg tablet Take 1 tablet by mouth daily with breakfast. - metOLazone (ZAROXOLYN) 2.5 mg tablet Take 1 tablet by mouth every other day. - leflunomide (ARAVA) 10 mg tablet Take 1 tablet by mouth once daily. - levothyroxine (SYNTHROID) 25 mcg tablet Take 1 tablet by mouth daily before breakfast. - pantoprazole DR (PROTONIX) 40 mg tablet Take 1 tablet by mouth daily before breakfast. Take on empty stomach, 1/2 hr before meal. - TRELEGY ELLIPTA 100-62.5-25 mcg inhalation powder Inhale 1 Puff as instructed once daily. - Magnesium 30 mg tablet Take 1 tablet by mouth twice daily. - calcium carbonate/vitamin d3(CALCIUM 600 + D(3) 600 MG (1,500)-200 UNIT TAB) Take one(1) tablet twice daily BY MOUTH. - DAILY MULTIPLE TAB Take one(1) tablet daily BY MOUTH. Problem List As Of Date 02/16/2025 Noted Resolved Osteoarthrosis, unspecified whether generalized* 03/11/2017 AMNESIA (RETROGRADE) TRANSIENT GLOBAL [G45.4] 07/15/2007 06/26/2023 HIGH BLOOD PRESSURE-NO HYPERTENSN [R03.0] 07/15/2007 03/11/2017 INSOMNIA [G47.00] 07/15/2007 TOBACCO USE - PERSONAL HX [Z87.891] 07/15/2007 03/11/2017 Hyperlipidemia [E78.5] 08/20/2007 TIA (transient ischemic attack) [G45.9] 12/16/2007 06/26/2023 Acute gastritis with hemorrhage [K29.01] 10/13/2008 03/11/2017 Acute gastritis without mention of hemorrhage [*10/13/2008 03/11/2017 Hyperlipemia [E78.5] 06/16/2009 02/02/2016 Atrial Fibrillation [I48.91] 06/16/2009 12/16/2014 Sicca syndrome (HCC) [M35.00] 03/11/2017 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] 03/11/2017 Generalized Osteoarthrosis, Involving Hand [M15* Diarrhea [R19.7] 10/03/2009 12/16/2014 Diverticulosis of colon (without mention of hem*10/03/2009 06/26/2023 Internal hemorrhoids without mention of complic*10/03/2009 03/11/2017 Mitral regurgitation [I34.0] 09/02/2011 Right wrist pain [M25.531] 12/15/2012 03/11/2017 Uterovaginal prolapse [N81.4] 07/29/2013 03/11/2017 Cystocele [MRP1771] 07/29/2013 06/26/2023 Rotator cuff tear arthropathy of both shoulders*08/24/2013 PMB (postmenopausal bleeding) [N95.0] 09/07/2013 03/11/2017 Atrial fibrillation (HCC) [I48.91] 12/16/2014 Psoas tendinitis of right side [M76.11] 12/05/2015 03/11/2017 Gastroesophageal reflux disease without esophag*03/11/2016 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 *07/08/2016 Bilateral hip pain [M25.551, M25.552] 03/11/2017 S/P lumbar fusion [Z98.1] 06/02/2017 Abrasion of left forearm [S50.812A] 06/26/2017 03/18/2023 Laceration of left forearm [S51.812A] 06/26/2017 03/18/2023 Contusion of left hand [S60.222A] 06/26/2017 03/18/2023 Hematoma of left hip [S70.02XA] 06/26/2017 06/26/2023 Contusion of left knee [S80.02XA] 06/26/2017 03/18/2023 Primary osteoarthritis involving multiple joint*03/24/2018 Centrilobular emphysema (HCC) [J43.2] 04/13/2020 Gastrointestinal hemorrhage associated with ano*11/22/2020 06/26/2023 Iron deficiency anemia due to chronic blood los*11/22/2020 Pinched nerve in neck [G58.9] 01/30/2021 06/05/2021 Simple chronic bronchitis (HCC) [J41.0] 03/26/2021 Nonrheumatic tricuspid valve regurgitation [I36*03/26/2021 Congestive heart failure, unspecified HF chroni*05/12/2023 Acute respiratory failure with hypoxia and hype*05/12/2023 03/17/2024 Pulmonary hypertension due to lung diseases and*06/23/2023 Acquired hypothyroidism [E03.9] 01/23/2022 Rheumatoid arthritis with positive rheumatoid f*09/17/2023 PAH (pulmonary artery hypertension) (HCC) [I27.*07/01/2024 Encounter Status:Closed by TAMMI DOTSON on 02/16/25 FOOT 2 VIEW LT Observed: 02/07/2025 10:16 AM Status: F Source: [place] [id number] Patient: MALU KITCHEN Phone#: : [phone] Age: 79 Gender: F Pt. Type: Out Account: [id number] Location: 2 Ordering: BNENETT HARTMAN Exam Date: 02/07/2025/10:06 Family Phys: ANDRA Elkins CARYNSADAF Charge Code: 247096 Physician: [place] Order #: [id number] Dose#: PROCEDURE: X-RAY FOOT LT 2 VIEWS COMPARISON: None. INDICATIONS: Post-op evaluation. FINDINGS: BONES: There has been amputation of the 2nd and 3rd metatarsal heads and base of the proximal phalanx of the great toe. The bones of the foot are osteopenic. SOFT TISSUES: Soft tissue air is present, presumably postsurgical. There is heterogeneous density of the soft tissues at the dorsum of the foot. Presumably bandage material. EFFUSION: None visible. OTHER: Negative. CONCLUSION: 1. The bones of the foot are osteopenic. 2. Postsurgical changes are present at the base of the proximal phalanx of the great toe and metatarsal heads at the 2nd and 3rd digits. Dictated by: Rosa Adames MD on 02/07/2025 at 11:21 Approved by: Roas Adames MD on 02/07/2025 at 11:23 FINAL SURGICAL PATHOLOGY REPORT Observed : 02/07/2025 8:37 AM Status: F Source: [facility] Pathology Reports Accession: Collected Date/Time: Received Date/Time: Pathologist: [id number] 02/07/2025 08:37 EDT 02/09/2025 07:06 EDT MD VIVIAN MAGDALENO Final Surgical Pathology Report DIAGNOSIS: SOFT TISSUE, LEFT HELIX, EXCISION: - GOUTY TOPHI COMMENT: [facility] - [id number] CLINICAL INFORMATION: LEFT HALLUX VALGUS / PAINFUL LEFT 2ND AND 3RD METATARSAL HEADS SPECIMEN: A GOUTY TOPHI (L HALLUX) GROSS DESCRIPTION: All parts labelled with patient name and [id number] Received 100% alcohol labelled left hallux gouty tophi Is a herbert-white portion of soft tissue measuring 0.9 x 0.7 x 0.6 cm. A touch prep is attempted. TS-1 Veena Aguilar, Pathologists' Transmission Line Engineer (ASCP) Performed by VEENA AGUILAR MICROSCOPIC DESCRIPTION: The microscopic examination is performed, except in the case of Gross Only. Verified by Pathology Report verified by [facility] VIVIAN MAGDALENO MD Sign out Date: 02/09/2025 13:26 Performing Lab: [facility], [address] [place] [address] Pathology Dept Disclaimer If ancillary studies were utilized, the following Laboratory Developed Test (LDT) disclaimer will apply: Under CLIA requirements, [facility] Pathology Laboratory is qualified to perform high complexity testing. For all ancillary stains, positive and negative controls stain appropriately. Performance characteristics of immunohistochemical and chromogenic in-situ hybridization tests have been determined by [facility] Pathology Laboratory. These tests are used for clinical purposes, They should not be regarded as investigational or for research. HISTORY AND PHYSICAL Observed: 5 6:15 AM Status: F Source: [facility] HISTORY & PHYSICAL NAME ACCOUNT SEX AGE ADMIT DISCHARGE PT MED. RECORD# NUMBER DATE DATE TYPE FIDELINA [id number] F 79 02/07/25 2 MALU Fraser [id number] ROOM: [facility] DATE OF : 49 DICTATING PHYSICIAN: Bennett Hartman HISTORY OF PRESENT ILLNESS: The patient presented to me from my private office where she had presented complaining of very painful left foot. She had significant painful calluses on the plantar aspect secondary to fat pad atrophy complicated by rheumatoid arthritis. She had severe hallux valgus deformity as well. Change of shoes, padding, no longer going barefoot, etc. had failed to relieve the patient's symptomatology, so she had wished for surgical intervention. PAST MEDICAL HISTORY: Positive for rheumatoid arthritis. PLANNED PROCEDURE: 1. Mcnamara arthroplasty left hallux. 2. Resection of metatarsal head 2, resection of metatarsal head 3 left foot. SURGEON: Bennett Hartman DPM ALLERGIES: No known drug allergies, just adhesive tape. IMPRESSION AND PLAN: The patient is to present to [facility] for outpatient surgical intervention on the morning of February 07, 2025. Risks, complications, and alternative treatments were reviewed in detail and no guarantees were given. When conservative methods were exhausted, surgical intervention became recommended. The patient understands that she will most likely not be pain free and there is a possibility of transfer lesions. All questions were answered and consent was reviewed and signed. The patient's information was also sent to Dr. Núñez for the patient's continuity of care as she will need to discontinue or hold her arthritic medications. Dictated By: Bennett Hartman DPM 02/07/25 06:42 JOB #: [id number] Transcribed By: rc 02/07/25 07:05 Electronically signed by: E-SIGN BENNETT HARTMAN 02/21/25 12:10 Page 1 of 2 MALU KITCHEN History & Physical MALU KITCHEN :1945 Update to H&P: [ ] No changes: I have examined the patient and reviewed the H&P and there are no changes. [ ] As previously dictated with the following changes: ____ ____ ____ PHYSICIAN SIGNATURE: TIME: DATE: Page 2 of 2 FIDELINA MALU Bria History & Physical OPERATIVE PROCEDURES Observed: 6:15 AM Status: F Source: [facility] OPERATIVE REPORT NAME ACCOUNT SEX AGE ADMIT DISCHARGE PT MED. RECORD# NUMBER DATE DATE TYPE FIDELINA [id number] F 79 02/07/25 2 MALU Fraser [id number] ROOM: [facility] DATE OF : 1945 DICTATING PHYSICIAN: Bennett Hartman DATE OF SURGERY: February 07, 2025 SURGEON: Bennett Hartman DPM TEST BORER: None. ANESTHESIOLOGIST: Betsy Garcia MD ANESTHETIC: General with popliteal block of the left lower leg. PREOPERATIVE DIAGNOSIS: (1) Painful hallux valgus deformity of left foot. (2) Painful metatarsals 2 and 3 of the left foot. POSTOPERATIVE DIAGNOSIS: (1) Painful hallux valgus deformity of left foot. (2) Painful metatarsals 2 and 3 of the left foot. (3) Chronic gout. OPERATION PERFORMED: (1) Mcnamara arthroplasty of the left hallux. (2) Excision of left second metatarsal head. (3) Excision of left third metatarsal head. COMPLICATIONS: None. ESTIMATED BLOOD LOSS: Minimal. HEMOSTASIS: Pneumatic ankle tourniquet at 250 mmHg and electrocautery. DESCRIPTION OF OPERATION: Under mild sedation, the patient was brought to the OR and placed on the operating table in the supine position. The pneumatic ankle tourniquet was placed about the patient's left ankle. Following sedation, the left foot was scrubbed, prepped and draped in the usual aseptic manner. The foot was then elevated to exsanguinate the limb, and the pneumatic ankle tourniquet was inflated to 250 mmHg. Attention was then directed to the left first metatarsophalangeal joint, which had significant deforming forces as the hallux is very laterally dislocated, resulting in an overlapping second toe. The incision was linear longitudinal and parallel to the extensor hallucis longus tendon. The incision was deepened through sharp and blunt dissection, Page 1 of 3 MALU KITCHEN Bria Operative Report MALU Bria FIDELINA : 1945 and care was taken to retract all vital neurovascular structures. All superficial bleeding vessels were cauterized and ligated as necessary. Attention was then directed to the capsule of the first metatarsophalangeal joint. A longitudinal linear capsulotomy was performed, and the periosteal and capsular structures were dissected free from the osseous attachments and retracted. Immediately, there was noted to be a white chalky substance within the joint and within the capsule. Some of that substance was removed and will be sent to Pathology for further evaluation, but it did not appear purulent. Next, utilizing a sagittal saw a transverse cut was performed at the base of the proximal phalanx. It was noted that the bone was exceedingly soft and osteopenic. The base of the proximal phalanx was then removed in pieces, as it had just crumbled with grasping from the instruments. The wound was flushed with copious amounts of normal sterile saline several times throughout the procedure. The hallux was able to be put into a more correct anatomical position, but still deformity is present. There is contracture to the lateral soft tissues, including the skin, but improvement is seen. The periosteal and capsular structures were then reapproximated and coapted utilizing 3-0 Vicryl sutures. The subcutaneous tissue was reapproximated and coapted utilizing 4-0 Vicryl sutures. The skin was reapproximated and coapted utilizing 4-0 Prolene sutures. Some extra retaining sutures were placed to the medial capsular area in an effort to try to cinch up the medial structures. Attention was then directed to the second intermetatarsal space, where approximately a 4 cm linear longitudinal incision was made. The incision was deepened through sharp and blunt dissection. Care was taken to retract all vital neurovascular structures, and all superficial bleeding vessels were cauterized and ligated as necessary. Attention was then directed to the third metatarsal head. The toe was dislocated on top of the metatarsal. Utilizing a sagittal saw, a transverse cut was performed at the neck of the third metatarsal, and the head was removed. Again, there was crumbling of this soft bone. There did not appear to be any gouty remnants within this joint. Through this incision as well, the dissection was continued to the second metatarsophalangeal joint. The soft tissue structures were dissected free from their osseous attachments and retracted. Another transverse cut was performed, this time at the neck of the second metatarsal utilizing a sagittal saw. This second metatarsal was then removed from the operative field. It was also soft. Both of these procedures were performed through one incision in an effort to reduce the risk of skin dehiscence and to encourage healing. This was explained to the patient preoperatively, especially since she has rheumatoid arthritis and takes disease-modifying medications, which had been stopped before the procedure. The soft tissue structures were reapproximated and coapted through both the second Page 2 of 3 MALU KITCHEN S Operative Report MALU KITCHEN : 1945 and third metatarsophalangeal joints. The extensor tendons were noticed to be intact, and they were coapted utilizing 3-0 Vicryl sutures following several flushes with normal sterile saline. The subcutaneous tissue was reapproximated and coapted utilizing 4-0 Vicryl, and the skin was reapproximated and coapted utilizing 4-0 Prolene. Upon completion of the procedure, the incisions were dressed with Xeroform and covered with a sterile compressive dressing consisting of 4x4s and Grace. The pneumatic ankle tourniquet was deflated, and a prompt hyperemic response was noted to all digits of the left foot, including toes 2 and 3. Kerlix was then applied as well as a 4-inch Rudi wrap. The patient tolerated the procedure and anesthesia well. She was transferred to the recovery room with vital signs stable and vascular status intact to all toes of the left foot. Following a period of postoperative monitoring, she will be discharged home with written and oral postoperative instructions. The patient is to keep the dressing clean, dry and intact, avoid excessive ambulation, and rest and elevate the left foot but never ice the toes. Wear the surgical shoe at all times while ambulating. Contact Dr. Hartman's office for all postoperative follow-up care or if any problems were to arise. A pain prescription was written for Percocet, which she should take as directed. She does have several family members that will be checking on her several times throughout the day. Dictated By: Bennett Hartman DPM 02/07/25 09:54 JOB #: [id number] Transcribed By: pato 02/07/25 11:39 Electronically signed by: E-SIGN BENNETT HARTMAN 02/21/25 12:10 Page 3 of 3 MALU KITCHEN Operative Report CNPN Observed: 01/27/2025 12:00 AM Status: COMPLETED Source: [facility] Telephone (INTMWS) MALU KITCHEN ([id number]) 1945 F Date Time Provider Department 01/27/25 ANDRA RODRIGUES INTMWS During your visit today, we recorded the following information about you: Zahra Prater LPN 01/27/2025 1:21 PM Signed Last INR: 2.3 01/27/2025 per home INR Current dose of coumadin is: 01/21 took none, 01/22 took 1mg 01/23 took 1mg 01/24 1mg 01/25 took 1mg 01/26 took 2mg This was not the instructions given on 01/21/25 but is what she has been taking Last date of dose change: 01/21/25. Previous INR (date and result): 01/21/25 was 3.5 Additional Clinical Information or narrative: INR goal is 2-3. Pt says surgery is coming up and will be stopping coumadin Andra Rodrigues MD 01/31/2025 1:05 PM Signed Noted. Seems like she took 1 mgs, all days of the week except one. What she is doing currently is what will be good for her. Regards, Melissa Balbuena MD, MA 01/31/2025 2:04 PM Signed Patient active MyChart. Patient notified via [employer] message. Melissa Luz MA Allergies As of Date: 01/27/2025 Noted Allergy Reaction ADHESIVE TAPE (ROSINS) 08/22/2005 2 - Rash IBUPROFEN 06/06/2014 Comments: Pt on coumadin VICODIN (HYDROCODONE-ACETAMINOPHE*12/15/2014 8 - GI Upset Date Reviewed: 01/25/2025 Reviewed by: Melissa Luz MA - Fully Assessed Reason for Visit: Anticoagulation [8] Order(s):PROTHROMBIN TIME [SQPT] Order #: [id number] Prescriptions as of 01/31/2025 - furosemide (LASIX) 40 mg tablet Take 1 tablet by mouth once daily. Takes twice daily if with increased edema - HYDROcodone-acetaminophen (NORCO) 5-325 mg per tablet Take 1 tablet by mouth every 8 hours as needed for pain for up to 30 days. Patient should start on January 25, 2025. - dilTIAZem CD (CARDIZEM CD) 180 mg 24 hr capsule Take 1 capsule by mouth once daily. - potassium chloride SR (MICRO-K) 10 mEq CR capsule Take 2 capsules by mouth two times a day. - atenolol (TENORMIN) 25 mg tablet Take 1 tablet by mouth two times a day. - gabapentin (NEURONTIN) 300 mg capsule Take 1 capsule by mouth two times a day. - zolpidem (AMBIEN) 10 mg Take 1 tablet by mouth at bedtime as needed for up to 180 days. - ondansetron orally disintegrating (ZOFRAN ODT) 4 mg disintegrating tablet Take 1 tablet by mouth every 6 hours as needed for nausea/vomiting. - warfarin (COUMADIN) 1 mg tablet Take 1 tablet by mouth once daily. Please take daily as directed - empagliflozin (JARDIANCE) 10 mg tablet Take 1 tablet by mouth daily with breakfast. - metOLazone (ZAROXOLYN) 2.5 mg tablet Take 1 tablet by mouth every other day. - leflunomide (ARAVA) 10 mg tablet Take 1 tablet by mouth once daily. - levothyroxine (SYNTHROID) 25 mcg tablet Take 1 tablet by mouth daily before breakfast. - pantoprazole DR (PROTONIX) 40 mg tablet Take 1 tablet by mouth daily before breakfast. Take on empty stomach, 1/2 hr before meal. - TRELEGY ELLIPTA 100-62.5-25 mcg inhalation powder Inhale 1 Puff as instructed once daily. - Magnesium 30 mg tablet Take 1 tablet by mouth twice daily. - calcium carbonate/vitamin d3(CALCIUM 600 + D(3) 600 MG (1,500)-200 UNIT TAB) Take one(1) tablet twice daily BY MOUTH. - DAILY MULTIPLE TAB Take one(1) tablet daily BY MOUTH. Problem List As Of Date 01/27/2025 Noted Resolved Osteoarthrosis, unspecified whether generalized* 03/11/2017 AMNESIA (RETROGRADE) TRANSIENT GLOBAL [G45.4] 07/15/2007 06/26/2023 HIGH BLOOD PRESSURE-NO HYPERTENSN [R03.0] 07/15/2007 03/11/2017 INSOMNIA [G47.00] 07/15/2007 TOBACCO USE - PERSONAL HX [Z87.891] 07/15/2007 03/11/2017 Hyperlipidemia [E78.5] 08/20/2007 TIA (transient ischemic attack) [G45.9] 12/16/2007 06/26/2023 Acute gastritis with hemorrhage [K29.01] 10/13/2008 03/11/2017 Acute gastritis without mention of hemorrhage [*10/13/2008 03/11/2017 Hyperlipemia [E78.5] 06/16/2009 02/02/2016 Atrial Fibrillation [I48.91] 06/16/2009 12/16/2014 Sicca syndrome (HCC) [M35.00] 03/11/2017 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] 03/11/2017 Generalized Osteoarthrosis, Involving Hand [M15* Diarrhea [R19.7] 10/03/2009 12/16/2014 Diverticulosis of colon (without mention of hem*10/03/2009 06/26/2023 Internal hemorrhoids without mention of complic*10/03/2009 03/11/2017 Mitral regurgitation [I34.0] 09/02/2011 Right wrist pain [M25.531] 12/15/2012 03/11/2017 Uterovaginal prolapse [N81.4] 07/29/2013 03/11/2017 Cystocele [DOJ9087] 07/29/2013 06/26/2023 Rotator cuff tear arthropathy of both shoulders*08/24/2013 PMB (postmenopausal bleeding) [N95.0] 09/07/2013 03/11/2017 Atrial fibrillation (HCC) [I48.91] 12/16/2014 Psoas tendinitis of right side [M76.11] 12/05/2015 03/11/2017 Gastroesophageal reflux disease without esophag*03/11/2016 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 *07/08/2016 Bilateral hip pain [M25.551, M25.552] 03/11/2017 S/P lumbar fusion [Z98.1] 06/02/2017 Abrasion of left forearm [S50.812A] 06/26/2017 03/18/2023 Laceration of left forearm [S51.812A] 06/26/2017 03/18/2023 Contusion of left hand [S60.222A] 06/26/2017 03/18/2023 Hematoma of left hip [S70.02XA] 06/26/2017 06/26/2023 Contusion of left knee [S80.02XA] 06/26/2017 03/18/2023 Primary osteoarthritis involving multiple joint*03/24/2018 Centrilobular emphysema (HCC) [J43.2] 04/13/2020 Gastrointestinal hemorrhage associated with ano*11/22/2020 06/26/2023 Iron deficiency anemia due to chronic blood los*11/22/2020 Pinched nerve in neck [G58.9] 01/30/2021 06/05/2021 Simple chronic bronchitis (HCC) [J41.0] 03/26/2021 Nonrheumatic tricuspid valve regurgitation [I36*03/26/2021 Congestive heart failure, unspecified HF chroni*05/12/2023 Acute respiratory failure with hypoxia and hype*05/12/2023 03/17/2024 Pulmonary hypertension due to lung diseases and*06/23/2023 Acquired hypothyroidism [E03.9] 01/23/2022 Rheumatoid arthritis with positive rheumatoid f*09/17/2023 PAH (pulmonary artery hypertension) (HCC) [I27.*07/01/2024 Encounter Status:Closed by MELISSA LUZ on 01/31/25 XR CHEST 2V FRONTAL/LAT Observed: 2024 11:49 AM Status: F Source: [facility] * * *Final Report* * * DATE OF EXAM: Jan 25 2025 11:49AM WOX 5291 - XR CHEST 2V FRONTAL/LAT / PROCEDURE REASON: Pre-op exam * * * * Physician Interpretation * * * * EXAMINATION: CHEST RADIOGRAPH (2 VIEW FRONTAL and LATERAL) CLINICAL HISTORY: Pre-op exam MQ: [id number] EXAM DATE/TIME: 01/25/2025 11:49 AM COMPARISON: 09/23/2024 RESULT: Lines, tubes, and devices: Stimulator wires again seen superimposing the mid thoracic spine Lungs and pleura: Suboptimal inspiratory effort. Minor atelectasis right base. No consolidation, pleural effusions, or pneumothorax. Cardiomediastinal silhouette: Stable cardiac size Bones and soft tissues: Bilateral shoulder prostheses IMPRESSION: No acute radiographic abnormality. Childcare Director: PSCB Transcribe Date/Time: Jan 25 2025 1:37P Dictated by : ELIZABETH MENDEZ MD This examination was interpreted and the report reviewed and electronically signed by: ELIZABETH MENDEZ MD on Jan 25 2025 1:39PM EST [id number] Observed: 01/25/2025 11:30 AM Status: COMPLETED Source: [facility] HNO ID: [id number] Author: RITU KENNEY RT(R) Service: ? Author Type: Bung Remover Type: Progress Notes Filed: 01/25/2025 11:49 Note Text: Radiology Service Progress Note PATIENT NAME: Malu Kitchen DATE OF SERVICE: January 25, 2025 TIME: 11:39 AM PATIENT IDENTITY VERIFICATION COMPLETED USING TWO (2) IDENTIFIERS: Name and Date of confirmed by patient verbally. FALL SCREENING: Has the patient had 2 falls in the last year or 1 fall with injury or currently using an Ambulatory Assistive Device (Walker, Cane, Wheelchair, Crutches, etc.)? No PATIENT GENDER DATA: Assigned female at . status: : No status: NO. PATIENT RELEVANT IMPLANT DATA REVIEWED: Yes PATIENT PRESENTS WITH AN IMPLANTABLE OR ATTACHED MINE EXPERT: No RADIOLOGY DEPARTMENT: General X-ray: Exam(s) Completed: Chest X-Ray PERIPHERAL IV DATA: Not applicable SIGNED BY: RT Patricia(R) January 25, 2025 11:39 AM CBC W AUTO DIFF BLD Collected: 01/25/2025 11:14 AM S tatus: F Source: [facility] Order Comment: Specimen Type : BLOOD SPECIMEN Ordering Facility: [facility] Address: [address] [place] [address] TYPE CODE TESTS RESULT OUT OF RANGE REFERENCE UNITS LAB 6690-2(LOINC) WBC # Bld Auto 8.50 3.70-11.00 k/uL LAB 789-8([facility]) RBC # Bld Auto 4.92 3.90-5.20 m/ uL LAB 718-7([facility]) Hgb Bld-mCnc 14.8 11.5-15.5 g/dL LAB 4544-3([facility]) Hct VFr Bld Auto 45.0 36.0-46.0 % LAB 787-2([facility]) MCV RBC Auto 91.5 80.0-100.0 fL LAB 785-6([facility]) MCH RBC Qn Auto 30.1 26.0-34.0 p g LAB 786-4([facility]) MCHC RBC Auto-mCnc 32.9 30.5-36.0 g/dL LAB 76164-3([facility]) RDW RBC-Rto 13.8 11.5-15.0 % LAB 777-3([facility]) Platelet # Bld Auto 285 150-400 k/uL LAB 44304-1([facility]) PMV Bld Auto 11.3 9.0-12.7 fL LAB 770-8([facility]) Neutrophils/leuk NFr Bld Auto 62.0 % LAB 751-8([facility]) Neutrophils # Bld Auto 5.27 1.45-7.50 k/uL LAB 736-9([facility]) Lymphocytes/leuk NFr Bld Auto 23.4 % LAB 731-0([facility]) Lymphocytes # Bld Auto 1.99 1.00-4.00 k/uL LAB 5905-5([facility]) Monocytes/leuk NFr Bld Auto 12.6 % LAB 742-7([facility]) Monocytes # Bld Auto 1.07 High <0.87 k/uL LAB 713-8([facility]) Eosinophil/leuk NFr Bld Auto 1.4 % LAB 711-2([facility]) Eosinophil # Bld Auto 0.12 <0.46 k/uL LAB 706-2([facility]) Basophils/leuk NFr Bld Auto 0.4 % LAB 704-7([facility]) Basophils # Bld Auto 0.03 <0.11 k/uL LAB 82744-3([facility]) Imm Granulocytes/shraddha k NFr Bld Auto 0.2 % LAB 92517-2(LOINC) Imm Granulocytes # Bld Auto <0.03 <0.10 k/uL LAB 77282-1(LOINC) nRBC/100 WBC Bld-Rto 0.0 /100 WBC [facility] 771[facility] nRBC # Bld Auto <0.01 <0.01 k/u L LAB 05390-9([facility]) Differential method Bld Auto Performed By: #### 33889-2 # ### [facility] CLIA [id number] [address] [place] [address] [place] COMP METAB 2000 PNL SERPL Collected: 11:14 AM Status: F Source: [facility] Order Comment: Specimen Type : BLOOD SPECIMEN Ordering Facility: [facility] Address: [address] [place] [address] TYPE CODE TESTS RESULT OUT OF RANGE REFERENCE UNITS LAB 2885-2(INC) Prot SerPl-mCnc 7.3 6.3-8.0 g/dL LAB 1751-7(INC) Albumin SerPl-mCnc 4.3 3.9-4.9 g/dL LAB 98856-5(LOINC) Calcium SerPl-mCnc 10.6 High 8.5-10.2 mg/dL LAB 1975-2(LOINC) Bilirub SerPl-mCnc 0.4 0.2-1.3 mg/dL LAB 6768-6(INC) ALP SerPl-cCnc 94 34-123 U/L LAB 1920-8(LOINC) AST SerPl-cCnc 43 High 13-35 U/L LAB 1742-6(LOINC) ALT SerPl-cCnc 32 7-38 U/L LAB 2345-7(LOINC) Glucose SerPl-mCnc 82 74-99 mg/dL Result Comment: The [place] Diabetes Association (ADA) provides guidance for cutoff values for fasting glucose and random glucose. The ADA defines fasting as no caloric intake for at least 8 hours. Fasting plasma glucose results between 100 to 125 mg/dL indicate increased risk for diabetes (prediabetes). Fasting plasma glucose results greater than or equal to 126 mg/dL meet the criteria for diagnosis of diabetes. In the absence of unequivocal hyperglycemia, results should be confirmed by repeat testing. In a patient with classic symptoms of hyperglycemia or hyperglycemic crisis, random plasma glucose results greater than or equal to 200 mg/dL meet the criteria for diagnosis of diabetes. Reference: Standards of Medical Care in Diabetes 2016, [place] Diabetes Association. Diabetes Care. 2016.39(Suppl 1). LAB 3094-0(LOINC) BUN SerPl-mCnc 41 High 7-21 mg/ dL LAB 2160-0(LOINC) Creat SerPl-mCnc 1.17 High 0.58-0.96 mg/dL LAB 2951-2(LOINC) Sodium SerPl-sCnc 140 136-144 mmol/L LAB 2823-3(LOINC) Potassium SerPl-sCnc 3.9 3.7-5.1 mmol/L LAB 2075-0(LOINC) Chloride SerPl-sCnc 94 Low 98-107 mmol/L LAB 2028-9(LOINC) CO2 SerPl-sCnc 29 22-30 mmo l/L LAB 43143-7(LOINC) Anion Gap SerPl-sCnc 17 High 8-15 mmol/L LAB 70214-2(LOINC) Creatinine + eGFR Pnl SerPlBld 48 Low >=60 mL/min/1 .73m??? Result Comment: Estimated Gl omerular Filtration Rate (eGFR) is calculated using the 2020 CKD-EPI creatinine equation. This equation utilizes serum creatinine, sex, and age as parameters. The creatinine assay has traceable calibration to isotope dilution-mass spectrometry. Refer to KDIGO guidelines for clinical interpretation. In patients with unstable renal function, e.g. those with acute kidney injury, the eGFR may not accurately reflect actual GFR. Performed By: #### 36775-7 # ### [facility] CLIA [id number] [address] [place] [address] [place] PROGRESS Observed: 01/25/2025 11:11 AM Status: COMPLETED Source: [facility] HNO ID: [id number] Author: ANDRA RODRIGUES MD Service: ? Author Type: Physician Type: Progress Notes Filed: 01/25/2025 11:25 Note Text: Reason for Visit Follow up HPI Malu Kitchen is a 79-year-old female with a history of RA, CHF, and A-fib, presenting for preoperative evaluation prior to foot surgery. Malu is scheduled for a hallux caler arthroplasty with resection of two metatarsal heads by Dr. Powers at [facility]. She reports severe pain in her foot due to RA, with bones protruding through the skin. Malu has been using thick padding to offload weight from the affected area, which has resulted in back pain and hip discomfort. She denies any previous complications with anesthesia or surgery and has no family history of anesthesia complications. Malu has a history of using crutches in 1991, but reports poor balance currently. Malu is a nonsmoker and does not consume alcohol due to her heart rate medication, which she has been taking for 4-5 years. She has a history of A-fib, GERD, RA, CHF, emphysema, and silent strokes. Malu is currently on multiple medications, including Trelegy, Protonix, Synthroid, Arava, and Jardiance. She takes metolazone as needed for swelling, particularly in her legs and ankles. Malu is not on medication for anxiety or depression and denies a history of seizures. She is not diabetic and has no known history of chronic kidney disease. She is 5'1 tall, having lost an inch in height. Social History Tobacco Use Smoking status: Former Current packs/day: 0.00 Average packs/day: 2.0 packs/day for 30.0 years (60.0 ttl pk-yrs) Types: Cigarettes Start date: 08/22/1970 Quit date: 08/22/2000 Years since quittin.4 Smokeless tobacco: Never Vaping Use Vaping status: Never Used Substance Use Topics Alcohol use: Not Currently Comment: very occasional Drug use: Not Currently Types: Marijuana Past medical history, appointments, medications, allergies reviewed. Pertinent Lab/Diagnostic Studies are reviewed and discussed today Current Outpatient Medications: HYDROcodone-acetaminophen (NORCO) 5-325 mg per tablet dilTIAZem CD (CARDIZEM CD) 180 mg 24 hr capsule potassium chloride SR (MICRO-K) 10 mEq CR capsule atenolol (TENORMIN) 25 mg tablet gabapentin (NEURONTIN) 300 mg capsule zolpidem (AMBIEN) 10 mg ondansetron orally disintegrating (ZOFRAN ODT) 4 mg disintegrating tablet warfarin (COUMADIN) 1 mg tablet empagliflozin (JARDIANCE) 10 mg tablet leflunomide (ARAVA) 10 mg tablet levothyroxine (SYNTHROID) [address] (PROTONIX) 40 mg tablet furosemide (LASIX) 40 mg tablet TRELEGY ELLIPTA 100-62.5-25 mcg inhalation powder Magnesium 30 mg tablet calcium carbonate/vitamin d3(CALCIUM 600 + D(3) 600 MG (1,500)-200 UNIT TAB) DAILY MULTIPLE TAB metOLazone (ZAROXOLYN) 2.5 mg tablet Health Maintenance Cervical Cancer Screening Medicare Advantage Annual Wellness Visit Covid-19 Vaccine(8 - Pfizer risk season)@ Review Of Systems Cardiovascular: (+) lower extremity edema Musculoskeletal: (+) foot pain, (+) back pain, (+) hip pain Neurological: (+) gait imbalance Psychiatric: (-) anxiety, (-) depressed mood Physical Exam BP 124/81 Pulse 84 Temp 36.8 ?C (98.2 ?F) (Oral) Resp 16 Ht 148.8 cm (4' 10.58) Wt 61.3 kg (135 lb 3.2 oz) SpO2 96% BMI 27.70 kg/m? GENERAL: NAD, alert and oriented. SKIN: Unremarkable, no rash or skin lesions. HEAD: Normocephalic. EYES: PERRLA, EOMI, conjunctiva clear. OROPHARYNX: Lips, mucosa, and tongue normal, good dentition. No oral lesions noted. NECK: Supple, no lymphadenopathy, normal thyroid, no carotid bruits. LUNGS: Clear to auscultation bilaterally, no wheezes/rhonchi/rales. HEART: Regular rate and rhythm, no murmurs. No ectopy. EXTREMITIES: Deformities noted in the foot with protruding bones due to RA. No skin discoloration. No edema. NEURO: Awake, alert and oriented x3, cranial nerves II-XII grossly intact, normal gait, no involuntary motions. Imaging: - MRI (no date): Three lesions consistent with silent strokes. Assessment and Plan 1. Pre-op exam (Z01.818) Patient is scheduled for a hallux caler arthroplasty with resection of two metatarsal heads by Dr. Powers at [facility]. No previous anesthesia or surgical complications reported. Patient is on blood thinners due to atrial fibrillation and has multiple comorbidities including chronic diastolic congestive heart failure, emphysema, and stage 3a chronic kidney disease. - Ordered EKG, chest X-ray, and blood work as part of pre-operative evaluation. - Patient to hold blood thinners as per surgeon's instructions prior to surgery. - Patient advised to take inhaler on the day of surgery and to remain NPO. - Results will be faxed to the surgeon's office. 2. Atrial fibrillation, unspecified type (HCC) (I48.91) Patient is on anticoagulation therapy due to history of atrial fibrillation and silent strokes. Decisions on anticoagulation will be made shortly 3. Rheumatoid arthritis involving both feet, unspecified whether rheumatoid factor present (HCC) (M06.9) Severe deformity in the foot attributed to rheumatoid arthritis, necessitating surgical intervention. Currently managed with infusions every 8 weeks and half-dose Arava due to gastrointestinal side effects. 4. Chronic diastolic congestive heart failure (HCC) (I50.32) Managed by Dr. Schulz. Patient experiences occasional edema, managed with metolazone as needed. 5. Other emphysema (HCC) (J43.8) Patient is on Trelegy for management. 6. Stage 3a chronic kidney disease (HCC) (N18.31) Patient has stage 3a CKD. 7. Gastro-esophageal reflux disease without esophagitis (K21.9) Managed with Protonix. Voice recognition software was used to compose this office note. Please excuse any unintended typographical errors. Recording using ambient [employer] software for draft documentation of the visit was discussed with the patient/authorized community health representative; all questions welcomed and answered. Patient/authorized community health representative agreed to proceed Andra Rodrigues MD ECG COMPLETE Observed: 01/25/2025 10:59 AM Status: F Source: [facility] Ventricular Rate : 81 BPM QRS Duration : 80 ms Q-T Interval : 384 ms QTC Calculation(Bazett) : 446 ms Calculated R [place] : 12 degrees Calculated T [place] : -28 degrees ATRIAL FIBRILLATION NONSPECIFIC ST AND T WAVE ABNORMALITY ABNORMAL ECG Confirmed by MD BEVERLY, SHANICE ([id number]) on 01/25/2025 4:34:24 PM NAME : MALU KITCHEN PID : [id number] : 1945 Gender : Female Race : ORD : [id number] Procedure Date : Jan 25 2025 10:59:50 Edit Date : Jan 25 2025 16:34:27 Diagnosis: ATRIAL FIBRILLATION NONSPECIFIC ST AND T WAVE ABNORMALITY ABNORMAL ECG Confirmed by MD PAUL QARAB ([id number]) on 01/25/2025 4:34:24 PM Test Reason : Z01.818 Pre-op exam Location : 185 : [facility] Overread By : MD PAUL QARAB Edited By : MD PAUL QARAB Referred By : , Acquired by : CHLOE Diaz Observed: 01/25/2025 10:00 AM Status: COMPLETED Source: [facility] Office Visit (INTMWS) MALU KITCHEN ([id number]) 1945 F Date Time Provider Department 01/25/25 10:00 AM ANDRA RODRIGUES INTMWS During your visit today, we recorded the following information about you: Temperature Pulse Respiration Blood pressure 98.2 degrees 84/minute 16/minute 124/81 Weight Height 61.3 kg 1.488 m Andra Rodrigues MD 01/25/2025 11:25 AM Signed Reason for Visit Follow up HPI Malu Kitchen is a 79-year-old female with a history of RA, CHF, and A-fib, presenting for preoperative evaluation prior to foot surgery. Malu is scheduled for a hallux caler arthroplasty with resection of two metatarsal heads by Dr. Powers at [facility]. She reports severe pain in her foot due to RA, with bones protruding through the skin. Malu has been using thick padding to offload weight from the affected area, which has resulted in back pain and hip discomfort. She denies any previous complications with anesthesia or surgery and has no family history of anesthesia complications. Malu has a history of using crutches in 1991, but reports poor balance currently. Malu is a nonsmoker and does not consume alcohol due to her heart rate medication, which she has been taking for 4-5 years. She has a history of A-fib, GERD, RA, CHF, emphysema, and silent strokes. Malu is currently on multiple medications, including Trelegy, Protonix, Synthroid, Arava, and Jardiance. She takes metolazone as needed for swelling, particularly in her legs and ankles. Malu is not on medication for anxiety or depression and denies a history of seizures. She is not diabetic and has no known history of chronic kidney disease. She is 5'1 tall, having lost an inch in height. Social History Tobacco Use Smoking status: Former Current packs/day: 0.00 Average packs/day: 2.0 packs/day for 30.0 years (60.0 ttl pk-yrs) Types: Cigarettes Start date: 08/22/1970 Quit date: 08/22/2000 Years since quittin.4 Smokeless tobacco: Never Vaping Use Vaping status: Never Used Substance Use Topics Alcohol use: Not Currently Comment: very occasional Drug use: Not Currently Types: Marijuana Past medical history, appointments, medications, allergies reviewed. Pertinent Lab/Diagnostic Studies are reviewed and discussed today Current Outpatient Medications: HYDROcodone-acetaminophen (NORCO) 5-325 mg per tablet dilTIAZem CD (CARDIZEM CD) 180 mg 24 hr capsule potassium chloride SR (MICRO-K) 10 mEq CR capsule atenolol (TENORMIN) 25 mg tablet gabapentin (NEURONTIN) 300 mg capsule zolpidem (AMBIEN) 10 mg ondansetron orally disintegrating (ZOFRAN ODT) 4 mg disintegrating tablet warfarin (COUMADIN) 1 mg tablet empagliflozin (JARDIANCE) 10 mg tablet leflunomide (ARAVA) 10 mg tablet levothyroxine (SYNTHROID) [address] (PROTONIX) 40 mg tablet furosemide (LASIX) 40 mg tablet TRELEGY ELLIPTA 100-62.5-25 mcg inhalation powder Magnesium 30 mg tablet calcium carbonate/vitamin d3(CALCIUM 600 + D(3) 600 MG (1,500)-200 UNIT TAB) DAILY MULTIPLE TAB metOLazone (ZAROXOLYN) 2.5 mg tablet Health Maintenance Cervical Cancer Screening Medicare Advantage Annual Wellness Visit Covid-19 Vaccine(8 - Pfizer risk season)@ Review Of Systems Cardiovascular: (+) lower extremity edema Musculoskeletal: (+) foot pain, (+) back pain, (+) hip pain Neurological: (+) gait imbalance Psychiatric: (-) anxiety, (-) depressed mood Physical Exam BP 124/81 Pulse 84 Temp 36.8 ?C (98.2 ?F) (Oral) Resp 16 Ht 148.8 cm (4' 10.58) Wt 61.3 kg (135 lb 3.2 oz) SpO2 96% BMI 27.70 kg/m? GENERAL: NAD, alert and oriented. SKIN: Unremarkable, no rash or skin lesions. HEAD: Normocephalic. EYES: PERRLA, EOMI, conjunctiva clear. OROPHARYNX: Lips, mucosa, and tongue normal, good dentition. No oral lesions noted. NECK: Supple, no lymphadenopathy, normal thyroid, no carotid bruits. LUNGS: Clear to auscultation bilaterally, no wheezes/rhonchi/rales. HEART: Regular rate and rhythm, no murmurs. No ectopy. EXTREMITIES: Deformities noted in the foot with protruding bones due to RA. No skin discoloration. No edema. NEURO: Awake, alert and oriented x3, cranial nerves II-XII grossly intact, normal gait, no involuntary motions. Imaging: - MRI (no date): Three lesions consistent with silent strokes. Assessment and Plan 1. Pre-op exam (Z01.818) Patient is scheduled for a hallux caler arthroplasty with resection of two metatarsal heads by Dr. Powers at [facility]. No previous anesthesia or surgical complications reported. Patient is on blood thinners due to atrial fibrillation and has multiple comorbidities including chronic diastolic congestive heart failure, emphysema, and stage 3a chronic kidney disease. - Ordered EKG, chest X-ray, and blood work as part of pre-operative evaluation. - Patient to hold blood thinners as per surgeon's instructions prior to surgery. - Patient advised to take inhaler on the day of surgery and to remain NPO. - Results will be faxed to the surgeon's office. 2. Atrial fibrillation, unspecified type (HCC) (I48.91) Patient is on anticoagulation therapy due to history of atrial fibrillation and silent strokes. Decisions on anticoagulation will be made shortly 3. Rheumatoid arthritis involving both feet, unspecified whether rheumatoid factor present (HCC) (M06.9) Severe deformity in the foot attributed to rheumatoid arthritis, necessitating surgical intervention. Currently managed with infusions every 8 weeks and half-dose Arava due to gastrointestinal side effects. 4. Chronic diastolic congestive heart failure (HCC) (I50.32) Managed by Dr. Schulz. Patient experiences occasional edema, managed with metolazone as needed. 5. Other emphysema (HCC) (J43.8) Patient is on Trelegy for management. 6. Stage 3a chronic kidney disease (HCC) (N18.31) Patient has stage 3a CKD. 7. Gastro-esophageal reflux disease without esophagitis (K21.9) Managed with Protonix. Voice recognition software was used to compose this office note. Please excuse any unintended typographical errors. Recording using [email or web address] software for draft documentation of the visit was discussed with the patient/authorized community health representative; all questions welcomed and answered. Patient/authorized community health representative agreed to proceed Andra Rodrigues MD Allergies As of Date: 01/25/2025 Noted Allergy Reaction ADHESIVE TAPE (ROSINS) 08/22/2005 2 - Rash IBUPROFEN 06/06/2014 Comments: Pt on coumadin VICODIN (HYDROCODONE-ACETAMINOPHE*12/15/2014 8 - GI Upset Date Reviewed: 01/25/2025 Reviewed by: Melissa Luz MA - Fully Assessed Reason for Visit: Pre-Op Exam [87] Cmt: Toe surgery 02/07/25- Primary Visit Diagnosis:Pre-op exam [Z01.818] Other Visit Diagnoses:Atrial fibrillation, unspecified type (HCC) [I48.91] Rheumatoid arthritis involving both feet, unspecified whether rheumatoid factor present (HCC) [M06.9] Chronic diastolic congestive heart failure (HCC) [I50.32] Other emphysema (HCC) [J43.8] Stage 3a chronic kidney disease (HCC) [N18.31] Gastro-esophageal reflux disease without esophagitis [K21.9] Order(s):XR CHEST 2V FRONTAL/LAT [1900771] Order #: [id number] FUTURE ECG COMPLETE [ECG01] Order #: [id number]. #:[id number]--AOAEqov COMPLETE BLOOD COUNT AND DIFFERENTIAL [SQCBCDIF] Order #: [id number] FUTURE COMPREHENSIVE METABOLIC PANEL [SQCMP] Order #: [id number] FUTURE Prescriptions as of 01/25/2025 - HYDROcodone-acetaminophen (NORCO) 5-325 mg per tablet Take 1 tablet by mouth every 8 hours as needed for pain for up to 30 days. Patient should start on January 25, 2025. - dilTIAZem CD (CARDIZEM CD) 180 mg 24 hr capsule Take 1 capsule by mouth once daily. - potassium chloride SR (MICRO-K) 10 mEq CR capsule Take 2 capsules by mouth two times a day. - atenolol (TENORMIN) 25 mg tablet Take 1 tablet by mouth two times a day. - gabapentin (NEURONTIN) 300 mg capsule Take 1 capsule by mouth two times a day. - zolpidem (AMBIEN) 10 mg Take 1 tablet by mouth at bedtime as needed for up to 180 days. - ondansetron orally disintegrating (ZOFRAN ODT) 4 mg disintegrating tablet Take 1 tablet by mouth every 6 hours as needed for nausea/vomiting. - warfarin (COUMADIN) 1 mg tablet Take 1 tablet by mouth once daily. Please take daily as directed - empagliflozin (JARDIANCE) 10 mg tablet Take 1 tablet by mouth daily with breakfast. - metOLazone (ZAROXOLYN) 2.5 mg tablet Take 1 tablet by mouth every other day. - leflunomide (ARAVA) 10 mg tablet Take 1 tablet by mouth once daily. - levothyroxine (SYNTHROID) 25 mcg tablet Take 1 tablet by mouth daily before breakfast. - pantoprazole DR (PROTONIX) 40 mg tablet Take 1 tablet by mouth daily before breakfast. Take on empty stomach, 1/2 hr before meal. - furosemide (LASIX) 40 mg tablet Take 1 tablet by mouth once daily. Takes twice daily if with increased edema - TRELEGY ELLIPTA 100-62.5-25 mcg inhalation powder Inhale 1 Puff as instructed once daily. - Magnesium 30 mg tablet Take 1 tablet by mouth twice daily. - calcium carbonate/vitamin d3(CALCIUM 600 + D(3) 600 MG (1,500)-200 UNIT TAB) Take one(1) tablet twice daily BY MOUTH. - DAILY MULTIPLE TAB Take one(1) tablet daily BY MOUTH. Problem List As Of Date 01/25/2025 Noted Resolved Osteoarthrosis, unspecified whether generalized* 03/11/2017 AMNESIA (RETROGRADE) TRANSIENT GLOBAL [G45.4] 07/15/2007 06/26/2023 HIGH BLOOD PRESSURE-NO HYPERTENSN [R03.0] 07/15/2007 03/11/2017 INSOMNIA [G47.00] 07/15/2007 TOBACCO USE - PERSONAL HX [Z87.891] 07/15/2007 03/11/2017 Hyperlipidemia [E78.5] 08/20/2007 TIA (transient ischemic attack) [G45.9] 12/16/2007 06/26/2023 Acute gastritis with hemorrhage [K29.01] 10/13/2008 03/11/2017 Acute gastritis without mention of hemorrhage [*10/13/2008 03/11/2017 Hyperlipemia [E78.5] 06/16/2009 02/02/2016 Atrial Fibrillation [I48.91] 06/16/2009 12/16/2014 Sicca syndrome (HCC) [M35.00] 03/11/2017 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] 03/11/2017 Generalized Osteoarthrosis, Involving Hand [M15* Diarrhea [R19.7] 10/03/2009 12/16/2014 Diverticulosis of colon (without mention of hem*10/03/2009 06/26/2023 Internal hemorrhoids without mention of complic*10/03/2009 03/11/2017 Mitral regurgitation [I34.0] 09/02/2011 Right wrist pain [M25.531] 12/15/2012 03/11/2017 Uterovaginal prolapse [N81.4] 07/29/2013 03/11/2017 Cystocele [TMN7526] 07/29/2013 06/26/2023 Rotator cuff tear arthropathy of both shoulders*08/24/2013 PMB (postmenopausal bleeding) [N95.0] 09/07/2013 03/11/2017 Atrial fibrillation (HCC) [I48.91] 12/16/2014 Psoas tendinitis of right side [M76.11] 12/05/2015 03/11/2017 Gastroesophageal reflux disease without esophag*03/11/2016 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 *07/08/2016 Bilateral hip pain [M25.551, M25.552] 03/11/2017 S/P lumbar fusion [Z98.1] 06/02/2017 Abrasion of left forearm [S50.812A] 06/26/2017 03/18/2023 Laceration of left forearm [S51.812A] 06/26/2017 03/18/2023 Contusion of left hand [S60.222A] 06/26/2017 03/18/2023 Hematoma of left hip [S70.02XA] 06/26/2017 06/26/2023 Contusion of left knee [S80.02XA] 06/26/2017 03/18/2023 Primary osteoarthritis involving multiple joint*03/24/2018 Centrilobular emphysema (HCC) [J43.2] 04/13/2020 Gastrointestinal hemorrhage associated with ano*11/22/2020 06/26/2023 Iron deficiency anemia due to chronic blood los*11/22/2020 Pinched nerve in neck [G58.9] 01/30/2021 06/05/2021 Simple chronic bronchitis (HCC) [J41.0] 03/26/2021 Nonrheumatic tricuspid valve regurgitation [I36*03/26/2021 Congestive heart failure, unspecified HF chroni*05/12/2023 Acute respiratory failure with hypoxia and hype*05/12/2023 03/17/2024 Pulmonary hypertension due to lung diseases and*06/23/2023 Acquired hypothyroidism [E03.9] 01/23/2022 Rheumatoid arthritis with positive rheumatoid f*09/17/2023 PAH (pulmonary artery hypertension) (HCC) [I27.*07/01/2024 Level of Service: OFFICE/OUTPATIENT ESTABLISHED MOD MDM 30 MIN [71768] Additional E/M codes: VISIT CPLX INHERENT EANDM ASSOC WITH MED * Encounter Status:Closed by ANDRA RODRIGUES on 01/25/25 [place] Observed: 01/21/2025 12:00 AM Status: COMPLETED Source: [facility] Telephone (INTMWS) MALU [id number]) 1945 F Date Time Provider Department 01/21/25 ANDRA RODRIGUES INTMWS During your visit today, we recorded the following information about you: Melvi Coelho MA 01/21/2025 2:13 PM Signed Last INR: INR (POCT) 3.5 01/21/2025 Current dose of coumadin is: 2 MG MWF AND 1 MG ALL OTHER DAYS. Last date of dose change: 01/12. Previous INR (date and result): 01/12 2.3 DEE Marroquin Chitra, MD 01/21/2025 4:55 PM Signed Hold medication today Change regimen to 2 mg on M and 1 mgs the rest of the week. Andra Quevedo MD, Brittany L, MA 01/21/2025 5:02 PM Signed Patient notified of results, verbalizes understanding of instructions. Patient still concerned about INR being high on same dose. Will continue PCP recommended dose and review instructions at office visit 01/25/25. Melissa Luz MA Tracker updated. Allergies As of Date: 01/21/2025 Noted Allergy Reaction ADHESIVE TAPE (ROSINS) 08/22/2005 2 - Rash IBUPROFEN 06/06/2014 Comments: Pt on coumadin VICODIN (HYDROCODONE-ACETAMINOPHE*12/15/2014 8 - GI Upset Date Reviewed: 11/01/2024 Reviewed by: Tammi Dotson MA - Fully Assessed Reason for Visit: Anticoagulation [8] Cmt: Order(s):PROTHROMBIN TIME [SQPT] Order #: [id number] Prescriptions as of 01/21/2025 - dilTIAZem CD (CARDIZEM CD) 180 mg 24 hr capsule Take 1 capsule by mouth once daily. - potassium chloride SR (MICRO-K) 10 mEq CR capsule Take 2 capsules by mouth two times a day. - HYDROcodone-acetaminophen (NORCO) 5-325 mg per tablet Take 1 tablet by mouth every 8 hours as needed for pain for up to 30 days. Patient should start on December 26, 2024. - atenolol (TENORMIN) 25 mg tablet Take 1 tablet by mouth two times a day. - gabapentin (NEURONTIN) 300 mg capsule Take 1 capsule by mouth two times a day. - zolpidem (AMBIEN) 10 mg Take 1 tablet by mouth at bedtime as needed for up to 180 days. - ondansetron orally disintegrating (ZOFRAN ODT) 4 mg disintegrating tablet Take 1 tablet by mouth every 6 hours as needed for nausea/vomiting. - warfarin (COUMADIN) 1 mg tablet Take 1 tablet by mouth once daily. Please take daily as directed - empagliflozin (JARDIANCE) 10 mg tablet Take 1 tablet by mouth daily with breakfast. - metOLazone (ZAROXOLYN) 2.5 mg tablet Take 1 tablet by mouth every other day. - leflunomide (ARAVA) 10 mg tablet Take 1 tablet by mouth once daily. - levothyroxine (SYNTHROID) 25 mcg tablet Take 1 tablet by mouth daily before breakfast. - pantoprazole DR (PROTONIX) 40 mg tablet Take 1 tablet by mouth daily before breakfast. Take on empty stomach, 1/2 hr before meal. - furosemide (LASIX) 40 mg tablet Take 1 tablet by mouth once daily. Takes twice daily if with increased edema - TRELEGY ELLIPTA 100-62.5-25 mcg inhalation powder Inhale 1 Puff as instructed once daily. - Magnesium 30 mg tablet Take 1 tablet by mouth twice daily. - calcium carbonate/vitamin d3(CALCIUM 600 + D(3) 600 MG (1,500)-200 UNIT TAB) Take one(1) tablet twice daily BY MOUTH. - DAILY MULTIPLE TAB Take one(1) tablet daily BY MOUTH. Problem List As Of Date 01/21/2025 Noted Resolved Osteoarthrosis, unspecified whether generalized* 03/11/2017 AMNESIA (RETROGRADE) TRANSIENT GLOBAL [G45.4] 07/15/2007 06/26/2023 HIGH BLOOD PRESSURE-NO HYPERTENSN [R03.0] 07/15/2007 03/11/2017 INSOMNIA [G47.00] 07/15/2007 TOBACCO USE - PERSONAL HX [Z87.891] 07/15/2007 03/11/2017 Hyperlipidemia [E78.5] 08/20/2007 TIA (transient ischemic attack) [G45.9] 12/16/2007 06/26/2023 Acute gastritis with hemorrhage [K29.01] 10/13/2008 03/11/2017 Acute gastritis without mention of hemorrhage [*10/13/2008 03/11/2017 Hyperlipemia [E78.5] 06/16/2009 02/02/2016 Atrial Fibrillation [I48.91] 06/16/2009 12/16/2014 Sicca syndrome (HCC) [M35.00] 03/11/2017 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] 03/11/2017 Generalized Osteoarthrosis, Involving Hand [M15* Diarrhea [R19.7] 10/03/2009 12/16/2014 Diverticulosis of colon (without mention of hem*10/03/2009 06/26/2023 Internal hemorrhoids without mention of complic*10/03/2009 03/11/2017 Mitral regurgitation [I34.0] 09/02/2011 Right wrist pain [M25.531] 12/15/2012 03/11/2017 Uterovaginal prolapse [N81.4] 07/29/2013 03/11/2017 Cystocele [ODN0622] 07/29/2013 06/26/2023 Rotator cuff tear arthropathy of both shoulders*08/24/2013 PMB (postmenopausal bleeding) [N95.0] 09/07/2013 03/11/2017 Atrial fibrillation (HCC) [I48.91] 12/16/2014 Psoas tendinitis of right side [M76.11] 12/05/2015 03/11/2017 Gastroesophageal reflux disease without esophag*03/11/2016 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 *07/08/2016 Bilateral hip pain [M25.551, M25.552] 03/11/2017 S/P lumbar fusion [Z98.1] 06/02/2017 Abrasion of left forearm [S50.812A] 06/26/2017 03/18/2023 Laceration of left forearm [S51.812A] 06/26/2017 03/18/2023 Contusion of left hand [S60.222A] 06/26/2017 03/18/2023 Hematoma of left hip [S70.02XA] 06/26/2017 06/26/2023 Contusion of left knee [S80.02XA] 06/26/2017 03/18/2023 Primary osteoarthritis involving multiple joint*03/24/2018 Centrilobular emphysema (HCC) [J43.2] 04/13/2020 Gastrointestinal hemorrhage associated with ano*11/22/2020 06/26/2023 Iron deficiency anemia due to chronic blood los*11/22/2020 Pinched nerve in neck [G58.9] 01/30/2021 06/05/2021 Simple chronic bronchitis (HCC) [J41.0] 03/26/2021 Nonrheumatic tricuspid valve regurgitation [I36*03/26/2021 Congestive heart failure, unspecified HF chroni*05/12/2023 Acute respiratory failure with hypoxia and hype*05/12/2023 03/17/2024 Pulmonary hypertension due to lung diseases and*06/23/2023 Acquired hypothyroidism [E03.9] 01/23/2022 Rheumatoid arthritis with positive rheumatoid f*09/17/2023 PAH (pulmonary artery hypertension) (HCC) [I27.*07/01/2024 Encounter Status:Closed by MELISSA LUZ on 01/21/25 [place] Observed: 01/12/2025 12:00 AM Status: COMPLETED Source: [facility] Telephone (INTMWS) MALU KITCHEN ([id number]) 1945 F Date Time Provider Department 01/12/25 ANDRA RODRIGUES INTAntoniaWS During your visit today, we recorded the following information about you: Siobhan Guillen LPN 01/12/2025 1:49 PM Signed Last INR: INR (POCT) 2.3(EXT) 01/12/2025 Current dose of coumadin is: 2 MG MWF AND 1 MG ALL OTHER DAYS. Last date of dose change: 01/05/25. Previous INR (date and result): 01/05/25 1.4 Additional Clinical Information or narrative: no INR goal is 2-3. Per home INR pt checks this weekly. Andra Rodriuges MD 01/12/2025 7:22 PM Signed Cont the same as it is in target at this point, Andra Quevedo MD, Brittany L, MA 01/13/2025 1:50 PM Signed Unable to reach patient. Left VM to return call to office. Please read below and advise. (Tracker updated). DEE Lewis M Robin, RN 01/13/2025 1:55 PM Signed Pt returned call and given provider's message below with verbalized understanding. Allergies As of Date: 01/12/2025 Noted Allergy Reaction ADHESIVE TAPE (ROSINS) 08/22/2005 2 - Rash IBUPROFEN 06/06/2014 Comments: Pt on coumadin VICODIN (HYDROCODONE-ACETAMINOPHE*12/15/2014 8 - GI Upset Date Reviewed: 11/01/2024 Reviewed by: Tammi Dotson MA - Fully Assessed Reason for Visit: Anticoagulation [8] Order(s):PROTHROMBIN TIME [SQPT] Order #: [id number] Prescriptions as of 01/13/2025 - potassium chloride SR (MICRO-K) 10 mEq CR capsule Take 2 capsules by mouth two times a day. - HYDROcodone-acetaminophen (NORCO) 5-325 mg per tablet Take 1 tablet by mouth every 8 hours as needed for pain for up to 30 days. Patient should start on December 26, 2024. - atenolol (TENORMIN) 25 mg tablet Take 1 tablet by mouth two times a day. - gabapentin (NEURONTIN) 300 mg capsule Take 1 capsule by mouth two times a day. - zolpidem (AMBIEN) 10 mg Take 1 tablet by mouth at bedtime as needed for up to 180 days. - ondansetron orally disintegrating (ZOFRAN ODT) 4 mg disintegrating tablet Take 1 tablet by mouth every 6 hours as needed for nausea/vomiting. - docusate sodium (COLACE) 100 mg capsule Take 1 capsule by mouth two times a day as needed for constipation. - warfarin (COUMADIN) 1 mg tablet Take 1 tablet by mouth once daily. Please take daily as directed - empagliflozin (JARDIANCE) 10 mg tablet Take 1 tablet by mouth daily with breakfast. - metOLazone (ZAROXOLYN) 2.5 mg tablet Take 1 tablet by mouth every other day. - dilTIAZem CD (CARDIZEM CD) 180 mg 24 hr capsule Take 1 capsule by mouth once daily. - leflunomide (ARAVA) 10 mg tablet Take 1 tablet by mouth once daily. - levothyroxine (SYNTHROID) 25 mcg tablet Take 1 tablet by mouth daily before breakfast. - pantoprazole DR (PROTONIX) 40 mg tablet Take 1 tablet by mouth daily before breakfast. Take on empty stomach, 1/2 hr before meal. - furosemide (LASIX) 40 mg tablet Take 1 tablet by mouth once daily. Takes twice daily if with increased edema - TRELEGY ELLIPTA 100-62.5-25 mcg inhalation powder Inhale 1 Puff as instructed once daily. - Magnesium 30 mg tablet Take 1 tablet by mouth twice daily. - calcium carbonate/vitamin d3(CALCIUM 600 + D(3) 600 MG (1,500)-200 UNIT TAB) Take one(1) tablet twice daily BY MOUTH. - DAILY MULTIPLE TAB Take one(1) tablet daily BY MOUTH. Problem List As Of Date 01/12/2025 Noted Resolved Osteoarthrosis, unspecified whether generalized* 03/11/2017 AMNESIA (RETROGRADE) TRANSIENT GLOBAL [G45.4] 07/15/2007 06/26/2023 HIGH BLOOD PRESSURE-NO HYPERTENSN [R03.0] 07/15/2007 03/11/2017 INSOMNIA [G47.00] 07/15/2007 TOBACCO USE - PERSONAL HX [Z87.891] 07/15/2007 03/11/2017 Hyperlipidemia [E78.5] 08/20/2007 TIA (transient ischemic attack) [G45.9] 12/16/2007 06/26/2023 Acute gastritis with hemorrhage [K29.01] 10/13/2008 03/11/2017 Acute gastritis without mention of hemorrhage [*10/13/2008 03/11/2017 Hyperlipemia [E78.5] 06/16/2009 02/02/2016 Atrial Fibrillation [I48.91] 06/16/2009 12/16/2014 Sicca syndrome (HCC) [M35.00] 03/11/2017 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] 03/11/2017 Generalized Osteoarthrosis, Involving Hand [M15* Diarrhea [R19.7] 10/03/2009 12/16/2014 Diverticulosis of colon (without mention of hem*10/03/2009 06/26/2023 Internal hemorrhoids without mention of complic*10/03/2009 03/11/2017 Mitral regurgitation [I34.0] 09/02/2011 Right wrist pain [M25.531] 12/15/2012 03/11/2017 Uterovaginal prolapse [N81.4] 07/29/2013 03/11/2017 Cystocele [NXT6549] 07/29/2013 06/26/2023 Rotator cuff tear arthropathy of both shoulders*08/24/2013 PMB (postmenopausal bleeding) [N95.0] 09/07/2013 03/11/2017 Atrial fibrillation (HCC) [I48.91] 12/16/2014 Psoas tendinitis of right side [M76.11] 12/05/2015 03/11/2017 Gastroesophageal reflux disease without esophag*03/11/2016 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 *07/08/2016 Bilateral hip pain [M25.551, M25.552] 03/11/2017 S/P lumbar fusion [Z98.1] 06/02/2017 Abrasion of left forearm [S50.812A] 06/26/2017 03/18/2023 Laceration of left forearm [S51.812A] 06/26/2017 03/18/2023 Contusion of left hand [S60.222A] 06/26/2017 03/18/2023 Hematoma of left hip [S70.02XA] 06/26/2017 06/26/2023 Contusion of left knee [S80.02XA] 06/26/2017 03/18/2023 Primary osteoarthritis involving multiple joint*03/24/2018 Centrilobular emphysema (HCC) [J43.2] 04/13/2020 Gastrointestinal hemorrhage associated with ano*11/22/2020 06/26/2023 Iron deficiency anemia due to chronic blood los*11/22/2020 Pinched nerve in neck [G58.9] 01/30/2021 06/05/2021 Simple chronic bronchitis (HCC) [J41.0] 03/26/2021 Nonrheumatic tricuspid valve regurgitation [I36*03/26/2021 Congestive heart failure, unspecified HF chroni*05/12/2023 Acute respiratory failure with hypoxia and hype*05/12/2023 03/17/2024 Pulmonary hypertension due to lung diseases and*06/23/2023 Acquired hypothyroidism [E03.9] 01/23/2022 Rheumatoid arthritis with positive rheumatoid f*09/17/2023 PAH (pulmonary artery hypertension) (HCC) [I27.*07/01/2024 Encounter Status:Closed by Antonia EMERSON on 01/13/25 CNPN Observed: 01/05/2025 12:00 AM Status: COMPLETED Source: [facility] Telephone (INTMWS) MALU KITCHEN ([id number]) 1945 F Date Time Provider Department 01/05/25 ANDRA RODRIGUES INTMWS During your visit today, we recorded the following information about you: Alfiejessica ZahraKUMAR 01/05/2025 2:21 PM Signed Last INR: 1.4 01/05/2025 per home INR Current dose of coumadin is: . Last date of dose change: 11/15/24. Previous INR (date and result): 12/23/24 was 2.1 Additional Clinical Information or narrative: INR goal is 2-3. Per home INR pt checks this weekly. Message left for pt to return call to a nurse to verify coumadin dose and pt findings. Jeri Banuelos RN 01/06/2025 3:01 PM Signed Patient returned call and verified her current coumadin dose in 1 mg daily. Please call patient with instructions. MOSHE Butt Chitra, MD 01/07/2025 12:49 PM Signed Please ask her to take 2 mgs on Friday and Friday. RegardsAndra MD, Elizabeth, MA 01/07/2025 1:53 PM Signed Patient was notified and tracker updated Melvi Coelho MA Allergies As of Date: 01/05/2025 Noted Allergy Reaction ADHESIVE TAPE (ROSINS) 08/22/2005 2 - Rash IBUPROFEN 06/06/2014 Comments: Pt on coumadin VICODIN (HYDROCODONE-ACETAMINOPHE*12/15/2014 8 - GI Upset Date Reviewed: 11/01/2024 Reviewed by: Tammi Dotson MA - Fully Assessed Reason for Visit: Anticoagulation [8] Order(s):PROTHROMBIN TIME [SQPT] Order #: [id number] Prescriptions as of 01/07/2025 - HYDROcodone-acetaminophen (NORCO) 5-325 mg per tablet Take 1 tablet by mouth every 8 hours as needed for pain for up to 30 days. Patient should start on December 26, 2024. - atenolol (TENORMIN) 25 mg tablet Take 1 tablet by mouth two times a day. - gabapentin (NEURONTIN) 300 mg capsule Take 1 capsule by mouth two times a day. - zolpidem (AMBIEN) 10 mg Take 1 tablet by mouth at bedtime as needed for up to 180 days. - ondansetron orally disintegrating (ZOFRAN ODT) 4 mg disintegrating tablet Take 1 tablet by mouth every 6 hours as needed for nausea/vomiting. - docusate sodium (COLACE) 100 mg capsule Take 1 capsule by mouth two times a day as needed for constipation. - warfarin (COUMADIN) 1 mg tablet Take 1 tablet by mouth once daily. Please take daily as directed - empagliflozin (JARDIANCE) 10 mg tablet Take 1 tablet by mouth daily with breakfast. - metOLazone (ZAROXOLYN) 2.5 mg tablet Take 1 tablet by mouth every other day. - dilTIAZem CD (CARDIZEM CD) 180 mg 24 hr capsule Take 1 capsule by mouth once daily. - potassium chloride SR (MICRO-K) 10 mEq CR capsule Take 2 capsules by mouth two times a day. - leflunomide (ARAVA) 10 mg tablet Take 1 tablet by mouth once daily. - levothyroxine (SYNTHROID) 25 mcg tablet Take 1 tablet by mouth daily before breakfast. - pantoprazole DR (PROTONIX) 40 mg tablet Take 1 tablet by mouth daily before breakfast. Take on empty stomach, 1/2 hr before meal. - furosemide (LASIX) 40 mg tablet Take 1 tablet by mouth once daily. Takes twice daily if with increased edema - TRELEGY ELLIPTA 100-62.5-25 mcg inhalation powder Inhale 1 Puff as instructed once daily. - Magnesium 30 mg tablet Take 1 tablet by mouth twice daily. - calcium carbonate/vitamin d3(CALCIUM 600 + D(3) 600 MG (1,500)-200 UNIT TAB) Take one(1) tablet twice daily BY MOUTH. - DAILY MULTIPLE TAB Take one(1) tablet daily BY MOUTH. Problem List As Of Date 01/05/2025 Noted Resolved Osteoarthrosis, unspecified whether generalized* 03/11/2017 AMNESIA (RETROGRADE) TRANSIENT GLOBAL [G45.4] 07/15/2007 06/26/2023 HIGH BLOOD PRESSURE-NO HYPERTENSN [R03.0] 07/15/2007 03/11/2017 INSOMNIA [G47.00] 07/15/2007 TOBACCO USE - PERSONAL HX [Z87.891] 07/15/2007 03/11/2017 Hyperlipidemia [E78.5] 08/20/2007 TIA (transient ischemic attack) [G45.9] 12/16/2007 06/26/2023 Acute gastritis with hemorrhage [K29.01] 10/13/2008 03/11/2017 Acute gastritis without mention of hemorrhage [*10/13/2008 03/11/2017 Hyperlipemia [E78.5] 06/16/2009 02/02/2016 Atrial Fibrillation [I48.91] 06/16/2009 12/16/2014 Sicca syndrome (HCC) [M35.00] 03/11/2017 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] 03/11/2017 Generalized Osteoarthrosis, Involving Hand [M15* Diarrhea [R19.7] 10/03/2009 12/16/2014 Diverticulosis of colon (without mention of hem*10/03/2009 06/26/2023 Internal hemorrhoids without mention of complic*10/03/2009 03/11/2017 Mitral regurgitation [I34.0] 09/02/2011 Right wrist pain [M25.531] 12/15/2012 03/11/2017 Uterovaginal prolapse [N81.4] 07/29/2013 03/11/2017 Cystocele [FIB9473] 07/29/2013 06/26/2023 Rotator cuff tear arthropathy of both shoulders*08/24/2013 PMB (postmenopausal bleeding) [N95.0] 09/07/2013 03/11/2017 Atrial fibrillation (HCC) [I48.91] 12/16/2014 Psoas tendinitis of right side [M76.11] 12/05/2015 03/11/2017 Gastroesophageal reflux disease without esophag*03/11/2016 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 *07/08/2016 Bilateral hip pain [M25.551, M25.552] 03/11/2017 S/P lumbar fusion [Z98.1] 06/02/2017 Abrasion of left forearm [S50.812A] 06/26/2017 03/18/2023 Laceration of left forearm [S51.812A] 06/26/2017 03/18/2023 Contusion of left hand [S60.222A] 06/26/2017 03/18/2023 Hematoma of left hip [S70.02XA] 06/26/2017 06/26/2023 Contusion of left knee [S80.02XA] 06/26/2017 03/18/2023 Primary osteoarthritis involving multiple joint*03/24/2018 Centrilobular emphysema (HCC) [J43.2] 04/13/2020 Gastrointestinal hemorrhage associated with ano*11/22/2020 06/26/2023 Iron deficiency anemia due to chronic blood los*11/22/2020 Pinched nerve in neck [G58.9] 01/30/2021 06/05/2021 Simple chronic bronchitis (HCC) [J41.0] 03/26/2021 Nonrheumatic tricuspid valve regurgitation [I36*03/26/2021 Congestive heart failure, unspecified HF chroni*05/12/2023 Acute respiratory failure with hypoxia and hype*05/12/2023 03/17/2024 Pulmonary hypertension due to lung diseases and*06/23/2023 Acquired hypothyroidism [E03.9] 01/23/2022 Rheumatoid arthritis with positive rheumatoid f*09/17/2023 PAH (pulmonary artery hypertension) (HCC) [I27.*07/01/2024 Encounter Status:Closed by MELVI COELHO on 01/07/25 CNPN Observed: 12/23/2024 12:00 AM Status: COMPLETED Source: [facility] Telephone (INTMWS) NICOLA KITCHENLISBETH Fraser ([id number]) 1945 F Date Time Provider Department 12/23/24 ANDRA RODRIGUES INTMWS During your visit today, we recorded the following information about you: Zahra Prater LPN 12/23/2024 3:18 PM Signed Last INR: 2.1 12/23/2024 per home INR Current dose of coumadin is: coumadin 1mg daily. Last date of dose change: 11/15/24. Previous INR (date and result): 12/13/24 was 1.9 Additional Clinical Information or narrative: INR goal is 2-3 Pt findings are negative. Per home INR check checks this weekly Andra Rodrigues MD 12/24/2024 9:44 AM Signed Continue the same dose Andra Quevedo MD, Janice, LPN 12/24/2024 10:31 AM Signed Pt notified. Allergies As of Date: 12/23/2024 Noted Allergy Reaction ADHESIVE TAPE (ROSINS) 08/22/2005 2 - Rash IBUPROFEN 06/06/2014 Comments: Pt on coumadin VICODIN (HYDROCODONE-ACETAMINOPHE*12/15/2014 8 - GI Upset Date Reviewed: 11/01/2024 Reviewed by: Tammi Dotson MA - Fully Assessed Reason for Visit: Anticoagulation [8] Order(s):PROTHROMBIN TIME [SQPT] Order #: [id number] Prescriptions as of 12/24/2024 - HYDROcodone-acetaminophen (NORCO) 5-325 mg per tablet Take 1 tablet by mouth every 8 hours as needed for pain for up to 30 days. Patient should start on December 26, 2024. - atenolol (TENORMIN) 25 mg tablet Take 1 tablet by mouth two times a day. - gabapentin (NEURONTIN) 300 mg capsule Take 1 capsule by mouth two times a day. - zolpidem (AMBIEN) 10 mg Take 1 tablet by mouth at bedtime as needed for up to 180 days. - ondansetron orally disintegrating (ZOFRAN ODT) 4 mg disintegrating tablet Take 1 tablet by mouth every 6 hours as needed for nausea/vomiting. - docusate sodium (COLACE) 100 mg capsule Take 1 capsule by mouth two times a day as needed for constipation. - warfarin (COUMADIN) 1 mg tablet Take 1 tablet by mouth once daily. Please take daily as directed - empagliflozin (JARDIANCE) 10 mg tablet Take 1 tablet by mouth daily with breakfast. - metOLazone (ZAROXOLYN) 2.5 mg tablet Take 1 tablet by mouth every other day. - dilTIAZem CD (CARDIZEM CD) 180 mg 24 hr capsule Take 1 capsule by mouth once daily. - potassium chloride SR (MICRO-K) 10 mEq CR capsule Take 2 capsules by mouth two times a day. - leflunomide (ARAVA) 10 mg tablet Take 1 tablet by mouth once daily. - levothyroxine (SYNTHROID) 25 mcg tablet Take 1 tablet by mouth daily before breakfast. - pantoprazole DR (PROTONIX) 40 mg tablet Take 1 tablet by mouth daily before breakfast. Take on empty stomach, 1/2 hr before meal. - furosemide (LASIX) 40 mg tablet Take 1 tablet by mouth once daily. Takes twice daily if with increased edema - TRELEGY ELLIPTA 100-62.5-25 mcg inhalation powder Inhale 1 Puff as instructed once daily. - Magnesium 30 mg tablet Take 1 tablet by mouth twice daily. - calcium carbonate/vitamin d3(CALCIUM 600 + D(3) 600 MG (1,500)-200 UNIT TAB) Take one(1) tablet twice daily BY MOUTH. - DAILY MULTIPLE TAB Take one(1) tablet daily BY MOUTH. Problem List As Of Date 12/23/2024 Noted Resolved Osteoarthrosis, unspecified whether generalized* 03/11/2017 AMNESIA (RETROGRADE) TRANSIENT GLOBAL [G45.4] 07/15/2007 06/26/2023 HIGH BLOOD PRESSURE-NO HYPERTENSN [R03.0] 07/15/2007 03/11/2017 INSOMNIA [G47.00] 07/15/2007 TOBACCO USE - PERSONAL HX [Z87.891] 07/15/2007 03/11/2017 Hyperlipidemia [E78.5] 08/20/2007 TIA (transient ischemic attack) [G45.9] 12/16/2007 06/26/2023 Acute gastritis with hemorrhage [K29.01] 10/13/2008 03/11/2017 Acute gastritis without mention of hemorrhage [*10/13/2008 03/11/2017 Hyperlipemia [E78.5] 06/16/2009 02/02/2016 Atrial Fibrillation [I48.91] 06/16/2009 12/16/2014 Sicca syndrome (HCC) [M35.00] 03/11/2017 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] 03/11/2017 Generalized Osteoarthrosis, Involving Hand [M15* Diarrhea [R19.7] 10/03/2009 12/16/2014 Diverticulosis of colon (without mention of hem*10/03/2009 06/26/2023 Internal hemorrhoids without mention of complic*10/03/2009 03/11/2017 Mitral regurgitation [I34.0] 09/02/2011 Right wrist pain [M25.531] 12/15/2012 03/11/2017 Uterovaginal prolapse [N81.4] 07/29/2013 03/11/2017 Cystocele [NYS8774] 07/29/2013 06/26/2023 Rotator cuff tear arthropathy of both shoulders*08/24/2013 PMB (postmenopausal bleeding) [N95.0] 09/07/2013 03/11/2017 Atrial fibrillation (HCC) [I48.91] 12/16/2014 Psoas tendinitis of right side [M76.11] 12/05/2015 03/11/2017 Gastroesophageal reflux disease without esophag*03/11/2016 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 *07/08/2016 Bilateral hip pain [M25.551, M25.552] 03/11/2017 S/P lumbar fusion [Z98.1] 06/02/2017 Abrasion of left forearm [S50.812A] 06/26/2017 03/18/2023 Laceration of left forearm [S51.812A] 06/26/2017 03/18/2023 Contusion of left hand [S60.222A] 06/26/2017 03/18/2023 Hematoma of left hip [S70.02XA] 06/26/2017 06/26/2023 Contusion of left knee [S80.02XA] 06/26/2017 03/18/2023 Primary osteoarthritis involving multiple joint*03/24/2018 Centrilobular emphysema (HCC) [J43.2] 04/13/2020 Gastrointestinal hemorrhage associated with ano*11/22/2020 06/26/2023 Iron deficiency anemia due to chronic blood los*11/22/2020 Pinched nerve in neck [G58.9] 01/30/2021 06/05/2021 Simple chronic bronchitis (HCC) [J41.0] 03/26/2021 Nonrheumatic tricuspid valve regurgitation [I36*03/26/2021 Congestive heart failure, unspecified HF chroni*05/12/2023 Acute respiratory failure with hypoxia and hype*05/12/2023 03/17/2024 Pulmonary hypertension due to lung diseases and*06/23/2023 Acquired hypothyroidism [E03.9] 01/23/2022 Rheumatoid arthritis with positive rheumatoid f*09/17/2023 PAH (pulmonary artery hypertension) (HCC) [I27.*07/01/2024 Encounter Status:Closed by ZAHRA PRATER on 12/24/24 [place] Observed: 12/13/2024 12:00 AM Status: COMPLETED Source: [facility] Telephone ([employer]) MALU KITCHEN ([id number]) 1945 F Date Time Provider Department 12/13/24 ANDRA RODRIGUES During your visit today, we recorded the following information about you: Zahra Prater LPN 12/13/2024 3:19 PM Signed Last INR: 1.9 12/13/2024 per home INR Current dose of coumadin is: 1mg daily . Last date of dose change: 11/15/24. Previous INR (date and result): 12/03/24 was 2.3 Additional Clinical Information or narrative: INR goal is 2-3. Pt findings are negative. Maybe diet changes if she eats out. Per INR home check pt checks INR weekly. Andra Rodrigues MD 12/13/2024 5:17 PM Signed Cont the same and recheck in 2 weeks Regards, Lucretia Banks MD, RN 12/13/2024 5:51 PM Signed Pt called and is notified of providers message and instructions. Pt voices understanding. She states she has to do her INR every week because Medicare furnishes the machine for her and says she has to do it every weeks. Updated Anticoag tracker. Lucretia Latif RN Allergies As of Date: 12/13/2024 Noted Allergy Reaction ADHESIVE TAPE (ROSINS) 08/22/2005 2 - Rash IBUPROFEN 06/06/2014 Comments: Pt on coumadin VICODIN (HYDROCODONE-ACETAMINOPHE*12/15/2014 8 - GI Upset Date Reviewed: 11/01/2024 Reviewed by: Tammi Dotson MA - Fully Assessed Reason for Visit: Anticoagulation [8] Order(s):PROTHROMBIN TIME [SQPT] Order #: [id number] Prescriptions as of 12/13/2024 - HYDROcodone-acetaminophen (NORCO) 5-325 mg per tablet Take 1 tablet by mouth every 8 hours as needed for pain for up to 30 days. Patient should start on November 26, 2024. - gabapentin (NEURONTIN) 300 mg capsule Take 1 capsule by mouth two times a day. - zolpidem (AMBIEN) 10 mg Take 1 tablet by mouth at bedtime as needed for up to 180 days. - ondansetron orally disintegrating (ZOFRAN ODT) 4 mg disintegrating tablet Take 1 tablet by mouth every 6 hours as needed for nausea/vomiting. - docusate sodium (COLACE) 100 mg capsule Take 1 capsule by mouth two times a day as needed for constipation. - warfarin (COUMADIN) 1 mg tablet Take 1 tablet by mouth once daily. Please take daily as directed - empagliflozin (JARDIANCE) 10 mg tablet Take 1 tablet by mouth daily with breakfast. - metOLazone (ZAROXOLYN) 2.5 mg tablet Take 1 tablet by mouth every other day. - dilTIAZem CD (CARDIZEM CD) 180 mg 24 hr capsule Take 1 capsule by mouth once daily. - potassium chloride SR (MICRO-K) 10 mEq CR capsule Take 2 capsules by mouth two times a day. - leflunomide (ARAVA) 10 mg tablet Take 1 tablet by mouth once daily. - levothyroxine (SYNTHROID) 25 mcg tablet Take 1 tablet by mouth daily before breakfast. - pantoprazole DR (PROTONIX) 40 mg tablet Take 1 tablet by mouth daily before breakfast. Take on empty stomach, 1/2 hr before meal. - furosemide (LASIX) 40 mg tablet Take 1 tablet by mouth once daily. Takes twice daily if with increased edema - atenolol (TENORMIN) 25 mg tablet Take 1 tablet by mouth two times a day. - TRELEGY ELLIPTA 100-62.5-25 mcg inhalation powder Inhale 1 Puff as instructed once daily. - Magnesium 30 mg tablet Take 1 tablet by mouth twice daily. - calcium carbonate/vitamin d3(CALCIUM 600 + D(3) 600 MG (1,500)-200 UNIT TAB) Take one(1) tablet twice daily BY MOUTH. - DAILY MULTIPLE TAB Take one(1) tablet daily BY MOUTH. Problem List As Of Date 12/13/2024 Noted Resolved Osteoarthrosis, unspecified whether generalized* 03/11/2017 AMNESIA (RETROGRADE) TRANSIENT GLOBAL [G45.4] 07/15/2007 06/26/2023 HIGH BLOOD PRESSURE-NO HYPERTENSN [R03.0] 07/15/2007 03/11/2017 INSOMNIA [G47.00] 07/15/2007 TOBACCO USE - PERSONAL HX [Z87.891] 07/15/2007 03/11/2017 Hyperlipidemia [E78.5] 08/20/2007 TIA (transient ischemic attack) [G45.9] 12/16/2007 06/26/2023 Acute gastritis with hemorrhage [K29.01] 10/13/2008 03/11/2017 Acute gastritis without mention of hemorrhage [*10/13/2008 03/11/2017 Hyperlipemia [E78.5] 06/16/2009 02/02/2016 Atrial Fibrillation [I48.91] 06/16/2009 12/16/2014 Sicca syndrome (HCC) [M35.00] 03/11/2017 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] 03/11/2017 Generalized Osteoarthrosis, Involving Hand [M15* Diarrhea [R19.7] 10/03/2009 12/16/2014 Diverticulosis of colon (without mention of hem*10/03/2009 06/26/2023 Internal hemorrhoids without mention of complic*10/03/2009 03/11/2017 Mitral regurgitation [I34.0] 09/02/2011 Right wrist pain [M25.531] 12/15/2012 03/11/2017 Uterovaginal prolapse [N81.4] 07/29/2013 03/11/2017 Cystocele [PKF5203] 07/29/2013 06/26/2023 Rotator cuff tear arthropathy of both shoulders*08/24/2013 PMB (postmenopausal bleeding) [N95.0] 09/07/2013 03/11/2017 Atrial fibrillation (HCC) [I48.91] 12/16/2014 Psoas tendinitis of right side [M76.11] 12/05/2015 03/11/2017 Gastroesophageal reflux disease without esophag*03/11/2016 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 *07/08/2016 Bilateral hip pain [M25.551, M25.552] 03/11/2017 S/P lumbar fusion [Z98.1] 06/02/2017 Abrasion of left forearm [S50.812A] 06/26/2017 03/18/2023 Laceration of left forearm [S51.812A] 06/26/2017 03/18/2023 Contusion of left hand [S60.222A] 06/26/2017 03/18/2023 Hematoma of left hip [S70.02XA] 06/26/2017 06/26/2023 Contusion of left knee [S80.02XA] 06/26/2017 03/18/2023 Primary osteoarthritis involving multiple joint*03/24/2018 Centrilobular emphysema (HCC) [J43.2] 04/13/2020 Gastrointestinal hemorrhage associated with ano*11/22/2020 06/26/2023 Iron deficiency anemia due to chronic blood los*11/22/2020 Pinched nerve in neck [G58.9] 01/30/2021 06/05/2021 Simple chronic bronchitis (HCC) [J41.0] 03/26/2021 Nonrheumatic tricuspid valve regurgitation [I36*03/26/2021 Congestive heart failure, unspecified HF chroni*05/12/2023 Acute respiratory failure with hypoxia and hype*05/12/2023 03/17/2024 Pulmonary hypertension due to lung diseases and*06/23/2023 Acquired hypothyroidism [E03.9] 01/23/2022 Rheumatoid arthritis with positive rheumatoid f*09/17/2023 PAH (pulmonary artery hypertension) (HCC) [I27.*07/01/2024 Encounter Status:Closed by LUCRETIA LATIF on 12/13/24 CNPN Observed: 12/06/2024 12:00 AM Status: COMPLETED Source: [facility] Telephone (INTMWS) MALU KITCHEN ([id number]) 1945 F Date Time Provider Department 12/06/24 ANDRA RODRIGUES During your visit today, we recorded the following information about you: Zahra Prater LPN 12/06/2024 9:18 AM Signed Last INR: 2.3 12/03/2024 per home INR Current dose of coumadin is: 1mg daily Last date of dose change: 11/15/24. Previous INR (date and result): 11/24/24 Additional Clinical Information or narrative: INR goal is 2-3. Pt findings are negative Pt checks INR weekly per home INR guide lines Andra Rodrigues MD 12/07/2024 5:33 PM Signed Inr is in the therapeutic range Andra Quevedo MD Allergies As of Date: 12/06/2024 Noted Allergy Reaction ADHESIVE TAPE (ROSINS) 08/22/2005 2 - Rash IBUPROFEN 06/06/2014 Comments: Pt on coumadin VICODIN (HYDROCODONE-ACETAMINOPHE*12/15/2014 8 - GI Upset Date Reviewed: 11/01/2024 Reviewed by: Tammi Dotson MA - Fully Assessed Reason for Visit: Anticoagulation [8] Order(s):PROTHROMBIN TIME [SQPT] Order #: [id number] Prescriptions as of 12/08/2024 - HYDROcodone-acetaminophen (NORCO) 5-325 mg per tablet Take 1 tablet by mouth every 8 hours as needed for pain for up to 30 days. Patient should start on November 26, 2024. - gabapentin (NEURONTIN) 300 mg capsule Take 1 capsule by mouth two times a day. - zolpidem (AMBIEN) 10 mg Take 1 tablet by mouth at bedtime as needed for up to 180 days. - ondansetron orally disintegrating (ZOFRAN ODT) 4 mg disintegrating tablet Take 1 tablet by mouth every 6 hours as needed for nausea/vomiting. - docusate sodium (COLACE) 100 mg capsule Take 1 capsule by mouth two times a day as needed for constipation. - warfarin (COUMADIN) 1 mg tablet Take 1 tablet by mouth once daily. Please take daily as directed - empagliflozin (JARDIANCE) 10 mg tablet Take 1 tablet by mouth daily with breakfast. - metOLazone (ZAROXOLYN) 2.5 mg tablet Take 1 tablet by mouth every other day. - dilTIAZem CD (CARDIZEM CD) 180 mg 24 hr capsule Take 1 capsule by mouth once daily. - potassium chloride SR (MICRO-K) 10 mEq CR capsule Take 2 capsules by mouth two times a day. - leflunomide (ARAVA) 10 mg tablet Take 1 tablet by mouth once daily. - levothyroxine (SYNTHROID) 25 mcg tablet Take 1 tablet by mouth daily before breakfast. - pantoprazole DR (PROTONIX) 40 mg tablet Take 1 tablet by mouth daily before breakfast. Take on empty stomach, 1/2 hr before meal. - furosemide (LASIX) 40 mg tablet Take 1 tablet by mouth once daily. Takes twice daily if with increased edema - atenolol (TENORMIN) 25 mg tablet Take 1 tablet by mouth two times a day. - TRELEGY ELLIPTA 100-62.5-25 mcg inhalation powder Inhale 1 Puff as instructed once daily. - Magnesium 30 mg tablet Take 1 tablet by mouth twice daily. - calcium carbonate/vitamin d3(CALCIUM 600 + D(3) 600 MG (1,500)-200 UNIT TAB) Take one(1) tablet twice daily BY MOUTH. - DAILY MULTIPLE TAB Take one(1) tablet daily BY MOUTH. Problem List As Of Date 12/06/2024 Noted Resolved Osteoarthrosis, unspecified whether generalized* 03/11/2017 AMNESIA (RETROGRADE) TRANSIENT GLOBAL [G45.4] 07/15/2007 06/26/2023 HIGH BLOOD PRESSURE-NO HYPERTENSN [R03.0] 07/15/2007 03/11/2017 INSOMNIA [G47.00] 07/15/2007 TOBACCO USE - PERSONAL HX [Z87.891] 07/15/2007 03/11/2017 Hyperlipidemia [E78.5] 08/20/2007 TIA (transient ischemic attack) [G45.9] 12/16/2007 06/26/2023 Acute gastritis with hemorrhage [K29.01] 10/13/2008 03/11/2017 Acute gastritis without mention of hemorrhage [*10/13/2008 03/11/2017 Hyperlipemia [E78.5] 06/16/2009 02/02/2016 Atrial Fibrillation [I48.91] 06/16/2009 12/16/2014 Sicca syndrome (HCC) [M35.00] 03/11/2017 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] 03/11/2017 Generalized Osteoarthrosis, Involving Hand [M15* Diarrhea [R19.7] 10/03/2009 12/16/2014 Diverticulosis of colon (without mention of hem*10/03/2009 06/26/2023 Internal hemorrhoids without mention of complic*10/03/2009 03/11/2017 Mitral regurgitation [I34.0] 09/02/2011 Right wrist pain [M25.531] 12/15/2012 03/11/2017 Uterovaginal prolapse [N81.4] 07/29/2013 03/11/2017 Cystocele [BLO4410] 07/29/2013 06/26/2023 Rotator cuff tear arthropathy of both shoulders*08/24/2013 PMB (postmenopausal bleeding) [N95.0] 09/07/2013 03/11/2017 Atrial fibrillation (HCC) [I48.91] 12/16/2014 Psoas tendinitis of right side [M76.11] 12/05/2015 03/11/2017 Gastroesophageal reflux disease without esophag*03/11/2016 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 *07/08/2016 Bilateral hip pain [M25.551, M25.552] 03/11/2017 S/P lumbar fusion [Z98.1] 06/02/2017 Abrasion of left forearm [S50.812A] 06/26/2017 03/18/2023 Laceration of left forearm [S51.812A] 06/26/2017 03/18/2023 Contusion of left hand [S60.222A] 06/26/2017 03/18/2023 Hematoma of left hip [S70.02XA] 06/26/2017 06/26/2023 Contusion of left knee [S80.02XA] 06/26/2017 03/18/2023 Primary osteoarthritis involving multiple joint*03/24/2018 Centrilobular emphysema (HCC) [J43.2] 04/13/2020 Gastrointestinal hemorrhage associated with ano*11/22/2020 06/26/2023 Iron deficiency anemia due to chronic blood los*11/22/2020 Pinched nerve in neck [G58.9] 01/30/2021 06/05/2021 Simple chronic bronchitis (HCC) [J41.0] 03/26/2021 Nonrheumatic tricuspid valve regurgitation [I36*03/26/2021 Congestive heart failure, unspecified HF chroni*05/12/2023 Acute respiratory failure with hypoxia and hype*05/12/2023 03/17/2024 Pulmonary hypertension due to lung diseases and*06/23/2023 Acquired hypothyroidism [E03.9] 01/23/2022 Rheumatoid arthritis with positive rheumatoid f*09/17/2023 PAH (pulmonary artery hypertension) (HCC) [I27.*07/01/2024 Encounter Status:Closed by TAMMI DOTSON on 12/08/24 [place] Observed: 11/17/2024 12:00 AM Status: COMPLETED Source: [facility] Telephone ([facility]) MALU KITCHEN ([id number]) 1945 F Vendor Date Time Provider Department 11/17/24 ANDRA RODRIGUES During your visit today, we recorded the following information about you: Antonia Emerson, RN 11/17/2024 1:55 PM Signed Arcelia- nurse- [facility]- reports she was going to discharge patient today but for the last 2-3 days, patient is having increase SOB related to her HR. Pt's fit bit reading 120's to 150's. Arcelia would like to extend HH services 1 x week for [address] Schulz, pattern technician office. Pt's next appt with cardiology is not until December. Arcelia asking if Dr. Schulz can see patient sooner. Asking for verbal approval from pcp to extend visits as above. Phone Arcelia with verbal @ [phone] Reports patient is having palpitations, non sustained CP, fatigue, irregular heart rhythm, patient does have A-fib with a controlled rate. HR was irregular at rest: 77 bpm. The heart rate increases when patient is up moving. Yesterday while patient was walking to an appt, pt's fitbit read HR 154. Shefali Rich APRN.KINGA 11/17/2024 6:57 PM Signed Ok for extension but with patient's symptoms and elevated HR she really needs seen. If it is consistently greater then 120 or is constantly symptomatic, then she needs to go to ER. Thank you Shefali Rich APRN.Tammi Collado MA 11/17/2024 7:10 PM Signed Patient notified, awaiting to hear back from cardiology. If patient does not hear back tomorrow, will call in and schedule or go to ER. Arcelia notified and will update our office when hears from cardiology. Deisy Padron LPN 11/18/2024 12:53 PM Signed Ruy from [facility] Home [facility] calling [facility] Komal Knight NP called her and said to continue to monitor patient, no testing or changes. Allergies As of Date: 11/17/2024 Noted Allergy Reaction ADHESIVE TAPE (ROSINS) 08/22/2005 2 - Rash IBUPROFEN 06/06/2014 Comments: Pt on coumadin VICODIN (HYDROCODONE-ACETAMINOPHE*12/15/2014 8 - GI Upset Date Reviewed: 11/01/2024 Reviewed by: Tammi Dotson MA - Fully Assessed Reason for Visit: Patient Update [1234] Verbal approval needed [Other] Prescriptions as of 11/18/2024 - HYDROcodone-acetaminophen (NORCO) 5-325 mg per tablet Take 1 tablet by mouth every 8 hours as needed for pain for up to 30 days. Patient should start on November 26, 2024. - gabapentin (NEURONTIN) 300 mg capsule Take 1 capsule by mouth two times a day. - zolpidem (AMBIEN) 10 mg Take 1 tablet by mouth at bedtime as needed for up to 180 days. - ondansetron orally disintegrating (ZOFRAN ODT) 4 mg disintegrating tablet Take 1 tablet by mouth every 6 hours as needed for nausea/vomiting. - docusate sodium (COLACE) 100 mg capsule Take 1 capsule by mouth two times a day as needed for constipation. - warfarin (COUMADIN) 1 mg tablet Take 1 tablet by mouth once daily. Please take daily as directed - empagliflozin (JARDIANCE) 10 mg tablet Take 1 tablet by mouth daily with breakfast. - metOLazone (ZAROXOLYN) 2.5 mg tablet Take 1 tablet by mouth every other day. - dilTIAZem CD (CARDIZEM CD) 180 mg 24 hr capsule Take 1 capsule by mouth once daily. - potassium chloride SR (MICRO-K) 10 mEq CR capsule Take 2 capsules by mouth two times a day. - leflunomide (ARAVA) 10 mg tablet Take 1 tablet by mouth once daily. - levothyroxine (SYNTHROID) 25 mcg tablet Take 1 tablet by mouth daily before breakfast. - pantoprazole DR (PROTONIX) 40 mg tablet Take 1 tablet by mouth daily before breakfast. Take on empty stomach, 1/2 hr before meal. - furosemide (LASIX) 40 mg tablet Take 1 tablet by mouth once daily. Takes twice daily if with increased edema - atenolol (TENORMIN) 25 mg tablet Take 1 tablet by mouth two times a day. - TRELEGY ELLIPTA 100-62.5-25 mcg inhalation powder Inhale 1 Puff as instructed once daily. - Magnesium 30 mg tablet Take 1 tablet by mouth twice daily. - calcium carbonate/vitamin d3(CALCIUM 600 + D(3) 600 MG (1,500)-200 UNIT TAB) Take one(1) tablet twice daily BY MOUTH. - DAILY MULTIPLE TAB Take one(1) tablet daily BY MOUTH. Problem List As Of Date 11/17/2024 Noted Resolved Osteoarthrosis, unspecified whether generalized* 03/11/2017 AMNESIA (RETROGRADE) TRANSIENT GLOBAL [G45.4] 07/15/2007 06/26/2023 HIGH BLOOD PRESSURE-NO HYPERTENSN [R03.0] 07/15/2007 03/11/2017 INSOMNIA [G47.00] 07/15/2007 TOBACCO USE - PERSONAL HX [Z87.891] 07/15/2007 03/11/2017 Hyperlipidemia [E78.5] 08/20/2007 TIA (transient ischemic attack) [G45.9] 12/16/2007 06/26/2023 Acute gastritis with hemorrhage [K29.01] 10/13/2008 03/11/2017 Acute gastritis without mention of hemorrhage [*10/13/2008 03/11/2017 Hyperlipemia [E78.5] 06/16/2009 02/02/2016 Atrial Fibrillation [I48.91] 06/16/2009 12/16/2014 Sicca syndrome (HCC) [M35.00] 03/11/2017 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] 03/11/2017 Generalized Osteoarthrosis, Involving Hand [M15* Diarrhea [R19.7] 10/03/2009 12/16/2014 Diverticulosis of colon (without mention of hem*10/03/2009 06/26/2023 Internal hemorrhoids without mention of complic*10/03/2009 03/11/2017 Mitral regurgitation [I34.0] 09/02/2011 Right wrist pain [M25.531] 12/15/2012 03/11/2017 Uterovaginal prolapse [N81.4] 07/29/2013 03/11/2017 Cystocele [[id number]] 07/29/2013 06/26/2023 Rotator cuff tear arthropathy of both shoulders*08/24/2013 PMB (postmenopausal bleeding) [N95.0] 09/07/2013 03/11/2017 Atrial fibrillation (HCC) [I48.91] 12/16/2014 Psoas tendinitis of right side [M76.11] 12/05/2015 03/11/2017 Gastroesophageal reflux disease without esophag*03/11/2016 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 *07/08/2016 Bilateral hip pain [M25.551, M25.552] 03/11/2017 S/P lumbar fusion [Z98.1] 06/02/2017 Abrasion of left forearm [S50.812A] 06/26/2017 03/18/2023 Laceration of left forearm [S51.812A] 06/26/2017 03/18/2023 Contusion of left hand [S60.222A] 06/26/2017 03/18/2023 Hematoma of left hip [S70.02XA] 06/26/2017 06/26/2023 Contusion of left knee [S80.02XA] 06/26/2017 03/18/2023 Primary osteoarthritis involving multiple joint*03/24/2018 Centrilobular emphysema (HCC) [J43.2] 04/13/2020 Gastrointestinal hemorrhage associated with ano*11/22/2020 06/26/2023 Iron deficiency anemia due to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 Atrial Fibrillation [I48.91] 06/16/2009 12/16/2014 Sicca syndrome (HCC) [M35.00] 03/11/2017 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] 03/11/2017 Generalized Osteoarthrosis, Involving Hand [M15* Diarrhea [R19.7] 10/03/2009 12/16/2014 Diverticulosis of colon (without mention of hem*10/03/2009 06/26/2023 Internal hemorrhoids without mention of complic*10/03/2009 03/11/2017 Mitral regurgitation [I34.0] 09/02/2011 Right wrist pain [M25.531] 12/15/2012 03/11/2017 Uterovaginal prolapse [N81.4] 07/29/2013 03/11/2017 Cystocele [JCW7468] 07/29/2013 06/26/2023 Rotator cuff tear arthropathy of both shoulders*08/24/2013 PMB (postmenopausal bleeding) [N95.0] 09/07/2013 03/11/2017 Atrial fibrillation (HCC) [I48.91] 12/16/2014 Psoas tendinitis of right side [M76.11] 12/05/2015 03/11/2017 Gastroesophageal reflux disease without esophag*03/11/2016 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 *07/08/2016 Bilateral hip pain [M25.551, M25.552] 03/11/2017 S/P lumbar fusion [Z98.1] 06/02/2017 Abrasion of left forearm [S50.812A] 06/26/2017 03/18/2023 Laceration of left forearm [S51.812A] 06/26/2017 03/18/2023 Contusion of left hand [S60.222A] 06/26/2017 03/18/2023 Hematoma of left hip [S70.02XA] 06/26/2017 06/26/2023 Contusion of left knee [S80.02XA] 06/26/2017 03/18/2023 Primary osteoarthritis involving multiple joint*03/24/2018 Centrilobular emphysema (HCC) [J43.2] 04/13/2020 Gastrointestinal hemorrhage associated with ano*11/22/2020 06/26/2023 Iron deficiency anemia due to chronic blood los*11/22/2020 Pinched nerve in neck [G58.9] 01/30/2021 06/05/2021 Simple chronic bronchitis (HCC) [J41.0] 03/26/2021 Nonrheumatic tricuspid valve regurgitation [I36*03/26/2021 Congestive heart failure, unspecified HF chroni*05/12/2023 Acute respiratory failure with hypoxia and hype*05/12/2023 03/17/2024 Pulmonary hypertension due to lung diseases and*06/23/2023 Acquired hypothyroidism [E03.9] 01/23/2022 Rheumatoid arthritis with positive rheumatoid f*09/17/2023 PAH (pulmonary artery hypertension) (HCC) [I27.*07/01/2024 Encounter Status:Closed by MELISSA LUZ on 11/05/24 PROGRESS Observed: 11/01/2024 9:02 PM Status: COMPLETED Source: [facility] HNO ID: [id number] Author: ANDRA RODRIGUES MD Service: ? Author Type: Physician Type: Progress Notes Filed: 11/01/2024 21:31 Note Text: Reason for Visit Follow up for fevers HPI Malu is a 79-year-old female with a history of AFib, presenting with recurrent fevers. Malu reports experiencing fevers last week on and Friday, with temperatures reaching 100.3?F and 99.7?F, respectively. These fevers occurred after completing a course of antibiotics, which she finished a week ago. She has not had a fever for the past three days (Friday, Friday, and Friday). She also reports burning eyes and dysuria during the febrile episodes. She denies any current abdominal pain, diarrhea, or constipation. Malu has a history of AFib and was recently hospitalized for pneumonia, during which her heart rate reached 150 bpm and required IV medication to control. She also has a spinal stimulator in place. She reports feeling weak and unable to walk long distances since her pneumonia diagnosis. She recently completed physical and occupational therapy. Social History Tobacco Use Smoking status: Former Current packs/day: 0.00 Average packs/day: 2.0 packs/day for 30.0 years (60.0 ttl pk-yrs) Types: Cigarettes Start date: 08/22/1970 Quit date: 08/22/2000 Years since quittin.2 Smokeless tobacco: Never Vaping Use Vaping status: Never Used Substance Use Topics Alcohol use: Not Currently Comment: very occasional Drug use: Not Currently Types: Marijuana Past medical history, appointments, medications, allergies reviewed. Pertinent Lab/Diagnostic Studies are reviewed and discussed today Current Outpatient Medications: HYDROcodone-acetaminophen (NORCO) 5-325 mg per tablet zolpidem (AMBIEN) 10 mg ondansetron orally disintegrating (ZOFRAN ODT) 4 mg disintegrating tablet docusate sodium (COLACE) 100 mg capsule warfarin (COUMADIN) 1 mg tablet empagliflozin (JARDIANCE) 10 mg tablet metOLazone (ZAROXOLYN) 2.5 mg tablet dilTIAZem CD (CARDIZEM CD) 180 mg 24 hr capsule potassium chloride SR (MICRO-K) 10 mEq CR capsule leflunomide (ARAVA) 10 mg tablet levothyroxine (SYNTHROID) 25 mcg tablet gabapentin (NEURONTIN) [address] (PROTONIX) 40 mg tablet furosemide (LASIX) 40 mg tablet atenolol (TENORMIN) 25 mg tablet TRELEGY ELLIPTA 100-62.5-25 mcg inhalation powder Magnesium 30 mg tablet calcium carbonate/vitamin d3(CALCIUM 600 + D(3) 600 MG (1,500)-200 UNIT TAB) DAILY MULTIPLE TAB Health Maintenance Cervical Cancer Screening@ Review Of Systems Constitutional: (-) fever, (+) fatigue Gastrointestinal: (-) abdominal pain, (-) diarrhea, (-) constipation Musculoskeletal: (+) foot pain Neurological: (+) weakness Physical Exam BP 122/68 Pulse 74 Temp 36.2 ?C (97.1 ?F) (Temporal) Resp 16 Wt 60.8 kg (134 lb) SpO2 94% BMI 27.45 kg/m? GENERAL: NAD, alert and oriented. SKIN: Unremarkable, no rash or skin lesions. HEAD: Normocephalic. EYES: PERRLA, EOMI, conjunctiva clear. EARS: External ears normal, canals clear, TM's normal. NOSE/SINUSES: Nares normal. Septum midline. OROPHARYNX: Lips, mucosa, and tongue normal, good dentition. No oral lesions noted. NECK: Supple, no lymphadenopathy, normal thyroid, no carotid bruits. LUNGS: Clear to auscultation bilaterally, no wheezes/rhonchi/rales. HEART: Regular rate and rhythm, no murmurs. No ectopy. EXTREMITIES: Normal, no deformities, no skin discoloration, no edema. NEURO: Awake, alert and oriented x3, cranial nerves II-XII grossly intact, normal gait, no involuntary motions. Assessment and Plan 1. Fever of unknown origin (R50.9) Intermittent fevers up to 100.3?F post-antibiotic therapy, with the most recent episode occurring last week. Differential diagnoses include endocarditis, cholecystitis, and infection related to spinal cord stimulator. - Ordered echocardiogram, blood cultures, and gallbladder ultrasound to investigate potential sources of infection. - Advised patient to monitor temperature closely and report any recurrence of fever immediately. 2. Shortness of breath (R06.02) Experiencing deconditioning and weakness post-pneumonia, contributing to dyspnea on exertion. - Recommended gradual increase in physical activity to improve conditioning. - Continue monitoring respiratory status. Voice recognition software was used to compose this office note. Please excuse any unintended typographical errors. The patient consented to the use of ambient AI software for draft documentation of the visit consistent with [facility]?s Notice of Privacy Practices. Andra Rodrigues MD CNOV Observed: 11/01/2024 3:40 PM Status: COMPLETED Source: [facility] Office Visit (INTMWS) MALU KITCHEN ([id number]) 1945 F Vendor Date Time Provider Department 11/01/24 3:40 PM ANDRA RODRIGUES During your visit today, we recorded the following information about you: Temperature Pulse Respiration Blood pressure 97.1 degrees 74/minute 16/minute 122/68 Weight 60.8 kg Andra Rodrigues MD 11/01/2024 9:31 PM Signed Reason for Visit Follow up for fevers HPI Malu is a 79-year-old female with a history of AFib, presenting with recurrent fevers. Malu reports experiencing fevers last week on and Friday, with temperatures reaching 100.3?F and 99.7?F, respectively. These fevers occurred after completing a course of antibiotics, which she finished a week ago. She has not had a fever for the past three days (Friday, Friday, and Friday). She also reports burning eyes and dysuria during the febrile episodes. She denies any current abdominal pain, diarrhea, or constipation. Malu has a history of AFib and was recently hospitalized for pneumonia, during which her heart rate reached 150 bpm and required IV medication to control. She also has a spinal stimulator in place. She reports feeling weak and unable to walk long distances since her pneumonia diagnosis. She recently completed physical and occupational therapy. Social History Tobacco Use Smoking status: Former Current packs/day: 0.00 Average packs/day: 2.0 packs/day for 30.0 years (60.0 ttl pk-yrs) Types: Cigarettes Start date: 08/22/1970 Quit date: 08/22/2000 Years since quittin.2 Smokeless tobacco: Never Vaping Use Vaping status: Never Used Substance Use Topics Alcohol use: Not Currently Comment: very occasional Drug use: Not Currently Types: Marijuana Past medical history, appointments, medications, allergies reviewed. Pertinent Lab/Diagnostic Studies are reviewed and discussed today Current Outpatient Medications: HYDROcodone-acetaminophen (NORCO) 5-325 mg per tablet zolpidem (AMBIEN) 10 mg ondansetron orally disintegrating (ZOFRAN ODT) 4 mg disintegrating tablet docusate sodium (COLACE) 100 mg capsule warfarin (COUMADIN) 1 mg tablet empagliflozin (JARDIANCE) 10 mg tablet metOLazone (ZAROXOLYN) 2.5 mg tablet dilTIAZem CD (CARDIZEM CD) 180 mg 24 hr capsule potassium chloride SR (MICRO-K) 10 mEq CR capsule leflunomide (ARAVA) 10 mg tablet levothyroxine (SYNTHROID) 25 mcg tablet gabapentin (NEURONTIN) [address] (PROTONIX) 40 mg tablet furosemide (LASIX) 40 mg tablet atenolol (TENORMIN) 25 mg tablet TRELEGY ELLIPTA 100-62.5-25 mcg inhalation powder Magnesium 30 mg tablet calcium carbonate/vitamin d3(CALCIUM 600 + D(3) 600 MG (1,500)-200 UNIT TAB) DAILY MULTIPLE TAB Health Maintenance Cervical Cancer Screening@ Review Of Systems Constitutional: (-) fever, (+) fatigue Gastrointestinal: (-) abdominal pain, (-) diarrhea, (-) constipation Musculoskeletal: (+) foot pain Neurological: (+) weakness Physical Exam BP 122/68 Pulse 74 Temp 36.2 ?C (97.1 ?F) (Temporal) Resp 16 Wt 60.8 kg (134 lb) SpO2 94% BMI 27.45 kg/m? GENERAL: NAD, alert and oriented. SKIN: Unremarkable, no rash or skin lesions. HEAD: Normocephalic. EYES: PERRLA, EOMI, conjunctiva clear. EARS: External ears normal, canals clear, TM's normal. NOSE/SINUSES: Nares normal. Septum midline. OROPHARYNX: Lips, mucosa, and tongue normal, good dentition. No oral lesions noted. NECK: Supple, no lymphadenopathy, normal thyroid, no carotid bruits. LUNGS: Clear to auscultation bilaterally, no wheezes/rhonchi/rales. HEART: Regular rate and rhythm, no murmurs. No ectopy. EXTREMITIES: Normal, no deformities, no skin discoloration, no edema. NEURO: Awake, alert and oriented x3, cranial nerves II-XII grossly intact, normal gait, no involuntary motions. Assessment and Plan 1. Fever of unknown origin (R50.9) Intermittent fevers up to 100.3?F post-antibiotic therapy, with the most recent episode occurring last week. Differential diagnoses include endocarditis, cholecystitis, and infection related to spinal cord stimulator. - Ordered echocardiogram, blood cultures, and gallbladder ultrasound to investigate potential sources of infection. - Advised patient to monitor temperature closely and report any recurrence of fever immediately. 2. Shortness of breath (R06.02) Experiencing deconditioning and weakness post-pneumonia, contributing to dyspnea on exertion. - Recommended gradual increase in physical activity to improve conditioning. - Continue monitoring respiratory status. Voice recognition software was used to compose this office note. Please excuse any unintended typographical errors. The patient consented to the use of ambient AI software for draft documentation of the visit consistent with [facility]?s Notice of Privacy Practices. Andra Rodrigues MD Allergies As of Date: 11/01/2024 Noted Allergy Reaction ADHESIVE TAPE (ROSINS) 08/22/2005 2 - Rash IBUPROFEN 06/06/2014 Comments: Pt on coumadin VICODIN (HYDROCODONE-ACETAMINOPHE*12/15/2014 8 - GI Upset Date Reviewed: 11/01/2024 Reviewed by: Tammi Dotson MA - Fully Assessed Reason for Visit: Recheck [92] Cmt: 2 week follow up Primary Visit Diagnosis:Fever of unknown origin [R50.9] Other Visit Diagnosis:Shortness of breath [R06.02] Order(s):US ABD RIGHT UPPER QUADRANT [1277204] Order #: [id number] FUTURE XR CHEST 2V FRONTAL/LAT [[id number]] Order #: [id number] FUTURE FUNGAL BLOOD CULTURE [SQHISTCL] Order #: [id number] FUTURE BACTERIAL CULTURE, BLOOD [SQBLCUL] Order #: [id number] FUTURE BACTERIAL CULTURE, BLOOD [SQBLCUL] Order #: [id number] FUTURE ECHO [932984] Order #: [id number]: 1 FUTURE Prescriptions as of 11/01/2024 - HYDROcodone-acetaminophen (NORCO) 5-325 mg per tablet Take 1 tablet by mouth every 8 hours as needed for pain for up to 30 days. - zolpidem (AMBIEN) 10 mg Take 1 tablet by mouth at bedtime as needed for up to 180 days. - ondansetron orally disintegrating (ZOFRAN ODT) 4 mg disintegrating tablet Take 1 tablet by mouth every 6 hours as needed for nausea/vomiting. - docusate sodium (COLACE) 100 mg capsule Take 1 capsule by mouth two times a day as needed for constipation. - warfarin (COUMADIN) 1 mg tablet Take 1 tablet by mouth once daily. Please take daily as directed - empagliflozin (JARDIANCE) 10 mg tablet Take 1 tablet by mouth daily with breakfast. - metOLazone (ZAROXOLYN) 2.5 mg tablet Take 1 tablet by mouth every other day. - dilTIAZem CD (CARDIZEM CD) 180 mg 24 hr capsule Take 1 capsule by mouth once daily. - potassium chloride SR (MICRO-K) 10 mEq CR capsule Take 2 capsules by mouth two times a day. - leflunomide (ARAVA) 10 mg tablet Take 1 tablet by mouth once daily. - levothyroxine (SYNTHROID) 25 mcg tablet Take 1 tablet by mouth daily before breakfast. - gabapentin (NEURONTIN) 300 mg capsule Take 1 capsule by mouth two times a day. - pantoprazole DR (PROTONIX) 40 mg tablet Take 1 tablet by mouth daily before breakfast. Take on empty stomach, 1/2 hr before meal. - furosemide (LASIX) 40 mg tablet Take 1 tablet by mouth once daily. Takes twice daily if with increased edema - atenolol (TENORMIN) 25 mg tablet Take 1 tablet by mouth two times a day. - TRELEGY ELLIPTA 100-62.5-25 mcg inhalation powder Inhale 1 Puff as instructed once daily. - Magnesium 30 mg tablet Take 1 tablet by mouth twice daily. - calcium carbonate/vitamin d3(CALCIUM 600 + D(3) 600 MG (1,500)-200 UNIT TAB) Take one(1) tablet twice daily BY MOUTH. - DAILY MULTIPLE TAB Take one(1) tablet daily BY MOUTH. Problem List As Of Date 11/01/2024 Noted Resolved Osteoarthrosis, unspecified whether generalized* 03/11/2017 AMNESIA (RETROGRADE) TRANSIENT GLOBAL [G45.4] 07/15/2007 06/26/2023 HIGH BLOOD PRESSURE-NO HYPERTENSN [R03.0] 07/15/2007 03/11/2017 INSOMNIA [G47.00] 07/15/2007 TOBACCO USE - PERSONAL HX [Z87.891] 07/15/2007 03/11/2017 Hyperlipidemia [E78.5] 08/20/2007 TIA (transient ischemic attack) [G45.9] 12/16/2007 06/26/2023 Acute gastritis with hemorrhage [K29.01] 10/13/2008 03/11/2017 Acute gastritis without mention of hemorrhage [*10/13/2008 03/11/2017 Hyperlipemia [E78.5] 06/16/2009 02/02/2016 Atrial Fibrillation [I48.91] 06/16/2009 12/16/2014 Sicca syndrome (HCC) [M35.00] 03/11/2017 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] 03/11/2017 Generalized Osteoarthrosis, Involving Hand [M15* Diarrhea [R19.7] 10/03/2009 12/16/2014 Diverticulosis of colon (without mention of hem*10/03/2009 06/26/2023 Internal hemorrhoids without mention of complic*10/03/2009 03/11/2017 Mitral regurgitation [I34.0] 09/02/2011 Right wrist pain [M25.531] 12/15/2012 03/11/2017 Uterovaginal prolapse [N81.4] 07/29/2013 03/11/2017 Cystocele [[id number]] 07/29/2013 06/26/2023 Rotator cuff tear arthropathy of both shoulders*08/24/2013 PMB (postmenopausal bleeding) [N95.0] 09/07/2013 03/11/2017 Atrial fibrillation (HCC) [I48.91] 12/16/2014 Psoas tendinitis of right side [M76.11] 12/05/2015 03/11/2017 Gastroesophageal reflux disease without esophag*03/11/2016 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 *07/08/2016 Bilateral hip pain [M25.551, M25.552] 03/11/2017 S/P lumbar fusion [Z98.1] 06/02/2017 Abrasion of left forearm [S50.812A] 06/26/2017 03/18/2023 Laceration of left forearm [S51.812A] 06/26/2017 03/18/2023 Contusion of left hand [S60.222A] 06/26/2017 03/18/2023 Hematoma of left hip [S70.02XA] 06/26/2017 06/26/2023 Contusion of left knee [S80.02XA] 06/26/2017 03/18/2023 Primary osteoarthritis involving multiple joint*03/24/2018 Centrilobular emphysema (HCC) [J43.2] 04/13/2020 Gastrointestinal hemorrhage associated with ano*11/22/2020 06/26/2023 Iron deficiency anemia due to chronic blood los*11/22/2020 Pinched nerve in neck [G58.9] 01/30/2021 06/05/2021 Simple chronic bronchitis (HCC) [J41.0] 03/26/2021 Nonrheumatic tricuspid valve regurgitation [I36*03/26/2021 Congestive heart failure, unspecified HF chroni*05/12/2023 Acute respiratory failure with hypoxia and hype*05/12/2023 03/17/2024 Pulmonary hypertension due to lung diseases and*06/23/2023 Acquired hypothyroidism [E03.9] 01/23/2022 Rheumatoid arthritis with positive rheumatoid f*09/17/2023 PAH (pulmonary artery hypertension) (HCC) [I27.*07/01/2024 Level of Service: OFFICE/OUTPATIENT ESTABLISHED MOD [facility] 30 MIN [73510] Additional E/M codes: VISIT CPLX INHERENT EANDM ASSOC WITH MED * Encounter Status:Closed by ANDRA RODRIGUES on 11/01/24 CNPKarley Observed: 10/29/2024 12:00 AM Status: COMPLETED Source: [facility] Telephone (INTMWS) MALU KITCHEN ([id number]) 1945 F Vendor Date Time Provider Department 10/29/24 ANDRA RODRIGUES INTAntoniaWS During your visit today, we recorded the following information about you: Zahra Prater LPN 10/29/2024 2:34 PM Signed Last INR: 1.5 10/29/2024 per home INR Current dose of coumadin is: 1mg daily. Last date of dose change: 10/08/24. Previous INR (date and result): 10/18/24 was 2.6 Additional Clinical Information or narrative: INR goal is 2-3 Pt finding are negative. No missed doses. She checks this weekly per home INR directions. Pt has appt with pcp 11/01/24. Pt reports she is running a fever off and on. Andra Rodrigues MD 10/29/2024 4:48 PM Signed Tell her to take 2 mgs Friday and Friday and 1 mgs the rest of the week Recheck in a weeks time Regards, Zahra Arroyo MD, LPN 10/29/2024 4:51 PM Signed Patient notified of results and provider's instructions. Patient verbalizes understanding. Zahra Prater LPN Allergies As of Date: 10/29/2024 Noted Allergy Reaction ADHESIVE TAPE (ROSINS) 08/22/2005 2 - Rash IBUPROFEN 06/06/2014 Comments: Pt on coumadin VICODIN (HYDROCODONE-ACETAMINOPHE*12/15/2014 8 - GI Upset Date Reviewed: 10/15/2024 Reviewed by: Melissa Luz MA - Fully Assessed Reason for Visit: Anticoagulation [8] Order(s):PROTHROMBIN TIME [SQPT] Order #: [id number] Prescriptions as of 10/29/2024 - HYDROcodone-acetaminophen (NORCO) 5-325 mg per tablet Take 1 tablet by mouth every 8 hours as needed for pain for up to 30 days. - zolpidem (AMBIEN) 10 mg Take 1 tablet by mouth at bedtime as needed for up to 180 days. - ondansetron orally disintegrating (ZOFRAN ODT) 4 mg disintegrating tablet Take 1 tablet by mouth every 6 hours as needed for nausea/vomiting. - docusate sodium (COLACE) 100 mg capsule Take 1 capsule by mouth two times a day as needed for constipation. - warfarin (COUMADIN) 1 mg tablet Take 1 tablet by mouth once daily. Please take daily as directed - empagliflozin (JARDIANCE) 10 mg tablet Take 1 tablet by mouth daily with breakfast. - metOLazone (ZAROXOLYN) 2.5 mg tablet Take 1 tablet by mouth every other day. - dilTIAZem CD (CARDIZEM CD) 180 mg 24 hr capsule Take 1 capsule by mouth once daily. - potassium chloride SR (MICRO-K) 10 mEq CR capsule Take 2 capsules by mouth two times a day. - leflunomide (ARAVA) 10 mg tablet Take 1 tablet by mouth once daily. - levothyroxine (SYNTHROID) 25 mcg tablet Take 1 tablet by mouth daily before breakfast. - gabapentin (NEURONTIN) 300 mg capsule Take 1 capsule by mouth two times a day. - pantoprazole DR (PROTONIX) 40 mg tablet Take 1 tablet by mouth daily before breakfast. Take on empty stomach, 1/2 hr before meal. - furosemide (LASIX) 40 mg tablet Take 1 tablet by mouth once daily. Takes twice daily if with increased edema - atenolol (TENORMIN) 25 mg tablet Take 1 tablet by mouth two times a day. - TRELEGY ELLIPTA 100-62.5-25 mcg inhalation powder Inhale 1 Puff as instructed once daily. - Magnesium 30 mg tablet Take 1 tablet by mouth twice daily. - calcium carbonate/vitamin d3(CALCIUM 600 + D(3) 600 MG (1,500)-200 UNIT TAB) Take one(1) tablet twice daily BY MOUTH. - DAILY MULTIPLE TAB Take one(1) tablet daily BY MOUTH. Problem List As Of Date 10/29/2024 Noted Resolved Osteoarthrosis, unspecified whether generalized* 03/11/2017 AMNESIA (RETROGRADE) TRANSIENT GLOBAL [G45.4] 07/15/2007 06/26/2023 HIGH BLOOD PRESSURE-NO HYPERTENSN [R03.0] 07/15/2007 03/11/2017 INSOMNIA [G47.00] 07/15/2007 TOBACCO USE - PERSONAL HX [Z87.891] 07/15/2007 03/11/2017 Hyperlipidemia [E78.5] 08/20/2007 TIA (transient ischemic attack) [G45.9] 12/16/2007 06/26/2023 Acute gastritis with hemorrhage [K29.01] 10/13/2008 03/11/2017 Acute gastritis without mention of hemorrhage [*10/13/2008 03/11/2017 Hyperlipemia [E78.5] 06/16/2009 02/02/2016 Atrial Fibrillation [I48.91] 06/16/2009 12/16/2014 Sicca syndrome (HCC) [M35.00] 03/11/2017 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] 03/11/2017 Generalized Osteoarthrosis, Involving Hand [M15* Diarrhea [R19.7] 10/03/2009 12/16/2014 Diverticulosis of colon (without mention of hem*10/03/2009 06/26/2023 Internal hemorrhoids without mention of complic*10/03/2009 03/11/2017 Mitral regurgitation [I34.0] 09/02/2011 Right wrist pain [M25.531] 12/15/2012 03/11/2017 Uterovaginal prolapse [N81.4] 07/29/2013 03/11/2017 Cystocele [ZWV7774] 07/29/2013 06/26/2023 Rotator cuff tear arthropathy of both shoulders*08/24/2013 PMB (postmenopausal bleeding) [N95.0] 09/07/2013 03/11/2017 Atrial fibrillation (HCC) [I48.91] 12/16/2014 Psoas tendinitis of right side [M76.11] 12/05/2015 03/11/2017 Gastroesophageal reflux disease without esophag*03/11/2016 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 *07/08/2016 Bilateral hip pain [M25.551, M25.552] 03/11/2017 S/P lumbar fusion [Z98.1] 06/02/2017 Abrasion of left forearm [S50.812A] 06/26/2017 03/18/2023 Laceration of left forearm [S51.812A] 06/26/2017 03/18/2023 Contusion of left hand [S60.222A] 06/26/2017 03/18/2023 Hematoma of left hip [S70.02XA] 06/26/2017 06/26/2023 Contusion of left knee [S80.02XA] 06/26/2017 03/18/2023 Primary osteoarthritis involving multiple joint*03/24/2018 Centrilobular emphysema (HCC) [J43.2] 04/13/2020 Gastrointestinal hemorrhage associated with ano*11/22/2020 06/26/2023 Iron deficiency anemia due to chronic blood los*11/22/2020 Pinched nerve in neck [G58.9] 01/30/2021 06/05/2021 Simple chronic bronchitis (HCC) [J41.0] 03/26/2021 Nonrheumatic tricuspid valve regurgitation [I36*03/26/2021 Congestive heart failure, unspecified HF chroni*05/12/2023 Acute respiratory failure with hypoxia and hype*05/12/2023 03/17/2024 Pulmonary hypertension due to lung diseases and*06/23/2023 Acquired hypothyroidism [E03.9] 01/23/2022 Rheumatoid arthritis with positive rheumatoid f*09/17/2023 PAH (pulmonary artery hypertension) (HCC) [I27.*07/01/2024 Encounter Status:Closed by ZAHRA PRATER on 10/29/24 [place] Observed: 10/18/2024 12:00 AM Status: COMPLETED Source: [facility] Telephone (INTMWS) MALU KITCHEN ([id number]) 1945 F Vendor Date Time Provider Department 10/18/24 ANDRA RODRIGUES INTMWS During your visit today, we recorded the following information about you: Zahra Prater LPN 10/18/2024 1:50 PM Signed Last INR: 2.6 10/18/2024 per home INRmachine Current dose of coumadin is: coumadin 1mg daily. Last date of dose change: 10/08/24. Previous INR (date and result): 10/14/24 was 2.5 Additional Clinical Information or narrative: INR goal is 2-3 Pt checks INR weekly per home INR protocol. Pt findings are 10/15/24 started antibiotic cefdinir. Other than that negative. She will check iNR again next Friday. Shefali Rich APRN.KINGA 10/20/2024 8:18 AM Signed Inr in range. Continue with current dosage and agree with plan to recheck next week as she is currently on an antibiotic. Thank you Shefali Rich APRN.Lucretia Walker RN 10/20/2024 9:23 AM Signed Pt called and is notified of providers results and instructions. Pt voices understanding. Updated Anticoag tracker. Lucretia Latif RN Allergies As of Date: 10/18/2024 Noted Allergy Reaction ADHESIVE TAPE (ROSINS) 08/22/2005 2 - Rash IBUPROFEN 06/06/2014 Comments: Pt on coumadin VICODIN (HYDROCODONE-ACETAMINOPHE*12/15/2014 8 - GI Upset Date Reviewed: 10/15/2024 Reviewed by: Melissa Luz MA - Fully Assessed Reason for Visit: Anticoagulation [8] Order(s):PROTHROMBIN TIME [SQPT] Order #: [id number] Prescriptions as of 10/20/2024 - docusate sodium (COLACE) 100 mg capsule Take 1 capsule by mouth two times a day as needed for constipation. - cefdinir (OMNICEF) 300 mg capsule Take 1 capsule by mouth two times a day for 10 days. - warfarin (COUMADIN) 1 mg tablet Take 1 tablet by mouth once daily. Please take daily as directed - ondansetron orally disintegrating (ZOFRAN ODT) 4 mg disintegrating tablet Take 1 tablet by mouth every 6 hours as needed for nausea/vomiting. - empagliflozin (JARDIANCE) 10 mg tablet Take 1 tablet by mouth daily with breakfast. - HYDROcodone-acetaminophen (NORCO) 5-325 mg per tablet Take 1 tablet by mouth every 8 hours as needed for pain for up to 30 days. - metOLazone (ZAROXOLYN) 2.5 mg tablet Take 1 tablet by mouth every other day. - dilTIAZem CD (CARDIZEM CD) 180 mg 24 hr capsule Take 1 capsule by mouth once daily. - potassium chloride SR (MICRO-K) 10 mEq CR capsule Take 2 capsules by mouth two times a day. - leflunomide (ARAVA) 10 mg tablet Take 1 tablet by mouth once daily. - levothyroxine (SYNTHROID) 25 mcg tablet Take 1 tablet by mouth daily before breakfast. - gabapentin (NEURONTIN) 300 mg capsule Take 1 capsule by mouth two times a day. - pantoprazole DR (PROTONIX) 40 mg tablet Take 1 tablet by mouth daily before breakfast. Take on empty stomach, 1/2 hr before meal. - furosemide (LASIX) 40 mg tablet Take 1 tablet by mouth once daily. Takes twice daily if with increased edema - atenolol (TENORMIN) 25 mg tablet Take 1 tablet by mouth two times a day. - TRELEGY ELLIPTA 100-62.5-25 mcg inhalation powder Inhale 1 Puff as instructed once daily. - Magnesium 30 mg tablet Take 1 tablet by mouth twice daily. - calcium carbonate/vitamin d3(CALCIUM 600 + D(3) 600 MG (1,500)-200 UNIT TAB) Take one(1) tablet twice daily BY MOUTH. - DAILY MULTIPLE TAB Take one(1) tablet daily BY MOUTH. Problem List As Of Date 10/18/2024 Noted Resolved Osteoarthrosis, unspecified whether generalized* 03/11/2017 AMNESIA (RETROGRADE) TRANSIENT GLOBAL [G45.4] 07/15/2007 06/26/2023 HIGH BLOOD PRESSURE-NO HYPERTENSN [R03.0] 07/15/2007 03/11/2017 INSOMNIA [G47.00] 07/15/2007 TOBACCO USE - PERSONAL HX [Z87.891] 07/15/2007 03/11/2017 Hyperlipidemia [E78.5] 08/20/2007 TIA (transient ischemic attack) [G45.9] 12/16/2007 06/26/2023 Acute gastritis with hemorrhage [K29.01] 10/13/2008 03/11/2017 Acute gastritis without mention of hemorrhage [*10/13/2008 03/11/2017 Hyperlipemia [E78.5] 06/16/2009 02/02/2016 Atrial Fibrillation [I48.91] 06/16/2009 12/16/2014 Sicca syndrome (HCC) [M35.00] 03/11/2017 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] 03/11/2017 Generalized Osteoarthrosis, Involving Hand [M15* Diarrhea [R19.7] 10/03/2009 12/16/2014 Diverticulosis of colon (without mention of hem*10/03/2009 06/26/2023 Internal hemorrhoids without mention of complic*10/03/2009 03/11/2017 Mitral regurgitation [I34.0] 09/02/2011 Right wrist pain [M25.531] 12/15/2012 03/11/2017 Uterovaginal prolapse [N81.4] 07/29/2013 03/11/2017 Cystocele [GTO8234] 07/29/2013 06/26/2023 Rotator cuff tear arthropathy of both shoulders*08/24/2013 PMB (postmenopausal bleeding) [N95.0] 09/07/2013 03/11/2017 Atrial fibrillation (HCC) [I48.91] 12/16/2014 Psoas tendinitis of right side [M76.11] 12/05/2015 03/11/2017 Gastroesophageal reflux disease without esophag*03/11/2016 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 *07/08/2016 Bilateral hip pain [M25.551, M25.552] 03/11/2017 S/P lumbar fusion [Z98.1] 06/02/2017 Abrasion of left forearm [S50.812A] 06/26/2017 03/18/2023 Laceration of left forearm [S51.812A] 06/26/2017 03/18/2023 Contusion of left hand [S60.222A] 06/26/2017 03/18/2023 Hematoma of left hip [S70.02XA] 06/26/2017 06/26/2023 Contusion of left knee [S80.02XA] 06/26/2017 03/18/2023 Primary osteoarthritis involving multiple joint*03/24/2018 Centrilobular emphysema (HCC) [J43.2] 04/13/2020 Gastrointestinal hemorrhage associated with ano*11/22/2020 06/26/2023 Iron deficiency anemia due to chronic blood los*11/22/2020 Pinched nerve in neck [G58.9] 01/30/2021 06/05/2021 Simple chronic bronchitis (HCC) [J41.0] 03/26/2021 Nonrheumatic tricuspid valve regurgitation [I36*03/26/2021 Congestive heart failure, unspecified HF chroni*05/12/2023 Acute respiratory failure with hypoxia and hype*05/12/2023 03/17/2024 Pulmonary hypertension due to lung diseases and*06/23/2023 Acquired hypothyroidism [E03.9] 01/23/2022 Rheumatoid arthritis with positive rheumatoid f*09/17/2023 PAH (pulmonary artery hypertension) (HCC) [I27.*07/01/2024 Encounter Status:Closed by LUCRETIA LATIF on 10/20/24 BACTERIA BLD CULT Observed: 10/15/2024 5:22 PM Status: F Source: [facility] CULTURE, BLOOD: No growth 5 days Performed By: #### [id number] ### # [facility] CLIA [id number] [address] [place] [address] [place] [address] [place] Observed: 10/15/2024 5:04 PM Status: COMPLETED Source: [facility] HNO ID: [id number] Author: ANDRA RODRIGUES MD Service: ? Author Type: Physician Type: Progress Notes Filed: 10/15/2024 17:09 Note Text: Reason for Visit Hospital discharge follow up YANI Toribio is a 79-year-old female with a history of atrial fibrillation, HLD, HTN, CHF, GERD, and hypothyroidism, presenting for a hospital discharge follow-up. Malu was admitted to the hospital from 09/27 to 10/04 for acute respiratory failure and was treated by Dr. Rad Chao. She was diagnosed with acute on chronic respiratory failure with hypoxia, chronic atrial fibrillation with RVR, and pneumonia. She presented with progressive generalized weakness and fatigue and was diagnosed with acute hypoxic respiratory failure. Initially, non-invasive ventilation was attempted but was not tolerated, leading to intubation and admission to the ICU. The etiology was identified as pneumonia and sudden decompensation of the heart due to CHF with preserved ejection fraction. She was successfully weaned off the ventilator and is now at home. On the discharge date, basilar opacities were noted. She was transferred from the ICU to the Progressive Care Unit for pulmonary toileting and supplemental oxygen use. During her hospital stay, she experienced fluid overload and was administered Lasix due to respiratory distress. She was also diagnosed with septic shock secondary to Streptococcus pneumoniae and was treated with Rocephin and Zithromax. An echocardiogram from January 2024 showed an EF of 57%. Her warfarin was held, and she was placed on systemic anticoagulation with enoxaparin. When an attempt was made to resume warfarin, her INR was 8.1, so it was discontinued. She is now more or less therapeutic. She also experienced an acute kidney injury due to hypotension and hyperkalemia and was found to have anemia. She was discharged on potassium chloride, magnesium, and cefdinir. Malu reports feeling better than during her hospital stay but still experiences weakness and a sensation of not being fully present. She is using a walker to prevent falls and has started therapy but did not continue during periods of fever. She is receiving home health care, including visits from nurses and occupational and regular therapy. Her INR was 2.5 yesterday. She reports fevers on Friday, Friday, and morning, with temperatures reaching 101.2?F at home on Friday and Friday. Since resuming antibiotics, her fever has decreased to 99?F. She reports clear lung sounds but experiences pain when breathing in and has been coughing up blood. She resumed Trelegy after her hospital stay and reports improved breathing. She also reports back pain and has taken hydrocodone for relief. She experiences constipation and is taking Dulcolax, with plans to start Metamucil. She reports drinking less water than usual and describes her bowel movements as small and incomplete. She is also taking leflunomide. Social History Tobacco Use Smoking status: Former Current packs/day: 0.00 Average packs/day: 2.0 packs/day for 30.0 years (60.0 ttl pk-yrs) Types: Cigarettes Start date: 08/22/1970 Quit date: 08/22/2000 Years since quittin.1 Smokeless tobacco: Never Vaping Use Vaping status: Never Used Substance Use Topics Alcohol use: Not Currently Comment: very occasional Drug use: Not Currently Types: Marijuana Past medical history, appointments, medications, allergies reviewed. Pertinent Lab/Diagnostic Studies are reviewed and discussed today Current Outpatient Medications: cefdinir (OMNICEF) 300 mg capsule warfarin (COUMADIN) 1 mg tablet ondansetron orally disintegrating (ZOFRAN ODT) 4 mg disintegrating tablet empagliflozin (JARDIANCE) 10 mg tablet HYDROcodone-acetaminophen (NORCO) 5-325 mg per tablet metOLazone (ZAROXOLYN) 2.5 mg tablet dilTIAZem CD (CARDIZEM CD) 180 mg 24 hr capsule potassium chloride SR (MICRO-K) 10 mEq CR capsule leflunomide (ARAVA) 10 mg tablet levothyroxine (SYNTHROID) 25 mcg tablet gabapentin (NEURONTIN) [address] (PROTONIX) 40 mg tablet furosemide (LASIX) 40 mg tablet atenolol (TENORMIN) 25 mg tablet TRELEGY ELLIPTA 100-62.5-25 mcg inhalation powder Magnesium 30 mg tablet calcium carbonate/vitamin d3(CALCIUM 600 + D(3) 600 MG (1,500)-200 UNIT TAB) DAILY MULTIPLE TAB docusate sodium (COLACE) 100 mg capsule Health Maintenance Cervical Cancer Screening@ Review Of Systems Constitutional: (+) low-grade fever, (+) fatigue Respiratory: (+) pain with inspiration, (+) hemoptysis Gastrointestinal: (+) constipation Genitourinary: (-) dysuria Musculoskeletal: (+) back pain, (+) weakness Neurological: (-) dizziness Skin: (-) erythema Physical Exam BP 112/65 Pulse 110 Temp 37.2 ?C (99 ?F) (Oral) Resp 16 Wt 58.3 kg (128 lb 9.6 oz) SpO2 88% BMI 26.35 kg/m? GENERAL: NAD, alert and oriented. SKIN: Unremarkable, no rash or skin lesions. HEAD: Normocephalic. EYES: PERRLA, EOMI, conjunctiva clear. EARS: External ears normal, canals clear, TM's normal. NOSE/SINUSES: Nares normal. Septum midline. OROPHARYNX: Lips, mucosa, and tongue normal, good dentition. No oral lesions noted. NECK: Supple, no lymphadenopathy, normal thyroid, no carotid bruits. LUNGS: Clear to auscultation bilaterally, no wheezes/rhonchi/rales. HEART: Regular rate and rhythm, no murmurs. No ectopy. EXTREMITIES: Normal, no deformities, no skin discoloration, no edema. NEURO: Awake, alert and oriented x3, cranial nerves II-XII grossly intact, normal gait, no involuntary motions. Labs: - INR: 2.5 - INR: 8.1 - Hyperkalemia - Anemia - Streptococcus pneumoniae identified Imaging: - (01/2024) Echocardiogram: Ejection fraction 57% Assessment and Plan 1. Pneumonia of lower lobe due to Streptococcus pneumoniae, unspecified laterality ([facility]) (J13) Continued fever (R50.9) Pneumonia due to Streptococcus pneumoniae led to acute respiratory failure and septic shock. Patient experienced continued fever after discharge, likely related to ongoing infection. - Continue cefdinir for an additional 9 days. - Monitor temperature closely; if fever persists after completing antibiotics, perform blood cultures. 2. Acute respiratory failure with hypoxia ([facility]) (J96.01) Acute respiratory failure with hypoxia secondary to pneumonia and CHF exacerbation. Required intubation and ICU admission; now weaned off ventilator and on supplemental oxygen. - Continue Trelegy for respiratory support. - Monitor respiratory status closely. 3. Chronic atrial fibrillation (HCC) (I48.20) Chronic atrial fibrillation with RVR during hospitalization. Warfarin therapy was held due to elevated INR of 8.1; currently on Coumadin with therapeutic INR of 2.5. - Continue Coumadin therapy. - Monitor INR levels regularly. 4. Heart failure, ACC/AHA stage C with preserved ejection fraction (HCC) (I50.30) CHF with preserved ejection fraction (EF 57% from January 2024). Contributed to acute respiratory failure during hospitalization. - Continue Lasix and metolazone for fluid management. - Monitor for signs of fluid overload. 5. Septic shock ([facility]) (A41.9) Septic shock secondary to pneumonia during hospitalization. Patient has stabilized and is now at home. - Continue current antibiotic regimen. - Monitor for signs of infection. 6. Acute renal failure, unspecified acute renal failure type ([facility]) (N17.9) Acute renal failure during hospitalization, likely due to hypotension and hyperkalemia. Renal function has improved. - Monitor renal function with follow-up labs. - Continue potassium chloride supplementation. 7. Hypokalemia (E87.6) Hypokalemia during hospitalization, now being managed with potassium chloride supplementation. - Continue potassium chloride as prescribed. - Monitor serum potassium levels. 8. Hospital discharge follow-up (Z09) Follow-up after hospitalization for acute respiratory failure, pneumonia, and septic shock. Patient is now at home with home health services. - Continue current medication regimen, including Jardiance, Neurontin, Cardizem, thyroid medication, magnesium, Protonix, and Trelegy. - Address constipation with Metamucil, docusate, and increased water intake. - Follow-up with primary care and specialists as needed. Voice recognition software was used to compose this office note. Please excuse any unintended typographical errors. The patient consented to the use of ambient [employer] software for draft documentation of the visit consistent with [facility] Notice of Privacy Practices. Andra Rodrigues MD BACTERIA BLD CULT Observed: 10/15/2024 5:00 PM Status: F Source: [facility] CULTURE, BLOOD: No growth 5 days Performed By: #### [id number] ### # [facility] CLIA [id number] [address] [facility] [place] [address] [place] Observed: 10/15/2024 3:20 PM Status: COMPLETED Source: [facility] Office Visit (INTMWS) MALU KITCHEN ([id number]) 1945 F Vendor Date Time Provider Department 10/15/24 3:20 PM ANDRA RODRIGUES INTMWS During your visit today, we recorded the following information about you: Temperature Pulse Respiration Blood pressure 99 degrees 110/minute 16/minute 112/65 Weight 58.3 kg Andra Rodrigues MD 10/15/2024 4:34 PM Signed We discussed your recent hospitalization and follow-up care: - You were hospitalized from September 27 to October 04 for acute on chronic respiratory failure with hypoxia, chronic atrial fibrillation with RVR, and pneumonia caused by Streptococcus pneumoniae. You were intubated and treated in the ICU, then transferred to a progressive care unit before being discharged home. - You were treated with Rocephin and Zithromax in the hospital and discharged on cefdinir, potassium chloride, and magnesium. You are currently on cefdinir for an extended course. Please continue taking this as prescribed for the next 9 days. If you develop a fever or other concerning symptoms, contact me immediately. - Your INR is now therapeutic at 2.5. Continue Coumadin as prescribed, and let your home health nurse monitor your INR levels. We discussed your ongoing symptoms and care plan: - You reported weakness, fatigue, and occasional fevers (up to 101.2?F earlier this week). Since restarting cefdinir, your fever has improved but remains slightly elevated at 99?F. If your fever returns or persists after completing the antibiotic course, please contact me immediately for blood cultures and further evaluation. - You mentioned coughing up blood and chest pain when breathing. Your lungs currently sound clear, and this may be residual irritation from pneumonia or your recent intubation. Continue monitoring your symptoms, and let me know if they worsen. - You are experiencing constipation, likely related to hydrocodone use. To manage this: - Take Metamucil daily (your daughter will pick this up for you). - Take docusate (stool softener) twice daily. - Take Miralax (17 grams) daily until your bowel movements become regular. - Drink plenty of water throughout the day. - If your symptoms persist, let me know. We discussed your medications: - Continue taking your current medications, including Jardiance, Lasix, Neurontin, Cardizem, thyroid medication, magnesium, metolazone, Protonix, Trelegy, and Coumadin, as prescribed. - You restarted Trelegy after your hospitalization, and it has been helping with your breathing. Please continue using it daily. - You may take hydrocodone for severe back pain as needed, but limit its use to avoid worsening constipation. We discussed your home health care: - You are receiving home health services, including visits from nurses and occupational and physical therapists. Please continue with therapy as tolerated to improve your strength and mobility. - Use your walker to prevent falls. Follow-up instructions: - If you develop a fever, worsening weakness, or other concerning symptoms, contact me immediately. - If your bowel movements do not improve despite the above measures, let me know. - Continue working with your home health team and attending therapy sessions. Please let me know if you have any questions or concerns about your care plan. Adnra Rodrigues MD 10/15/2024 5:09 PM Addendum Reason for Visit Hospital discharge follow up YANI Toribio is a 79-year-old female with a history of atrial fibrillation, HLD, HTN, CHF, GERD, and hypothyroidism, presenting for a hospital discharge follow-up. Malu was admitted to the hospital from 09/27 to 10/04 for acute respiratory failure and was treated by Dr. Rad Chao. She was diagnosed with acute on chronic respiratory failure with hypoxia, chronic atrial fibrillation with RVR, and pneumonia. She presented with progressive generalized weakness and fatigue and was diagnosed with acute hypoxic respiratory failure. Initially, non-invasive ventilation was attempted but was not tolerated, leading to intubation and admission to the ICU. The etiology was identified as pneumonia and sudden decompensation of the heart due to CHF with preserved ejection fraction. She was successfully weaned off the ventilator and is now at home. On the discharge date, basilar opacities were noted. She was transferred from the ICU to the Progressive Care Unit for pulmonary toileting and supplemental oxygen use. During her hospital stay, she experienced fluid overload and was administered Lasix due to respiratory distress. She was also diagnosed with septic shock secondary to Streptococcus pneumoniae and was treated with Rocephin and Zithromax. An echocardiogram from January 2024 showed an EF of 57%. Her warfarin was held, and she was placed on systemic anticoagulation with enoxaparin. When an attempt was made to resume warfarin, her INR was 8.1, so it was discontinued. She is now more or less therapeutic. She also experienced an acute kidney injury due to hypotension and hyperkalemia and was found to have anemia. She was discharged on potassium chloride, magnesium, and cefdinir. Malu reports feeling better than during her hospital stay but still experiences weakness and a sensation of not being fully present. She is using a walker to prevent falls and has started therapy but did not continue during periods of fever. She is receiving home health care, including visits from nurses and occupational and regular therapy. Her INR was 2.5 yesterday. She reports fevers on Friday, Friday, and morning, with temperatures reaching 101.2?F at home on Friday and Friday. Since resuming antibiotics, her fever has decreased to 99?F. She reports clear lung sounds but experiences pain when breathing in and has been coughing up blood. She resumed Trelegy after her hospital stay and reports improved breathing. She also reports back pain and has taken hydrocodone for relief. She experiences constipation and is taking Dulcolax, with plans to start Metamucil. She reports drinking less water than usual and describes her bowel movements as small and incomplete. She is also taking leflunomide. Social History Tobacco Use Smoking status: Former Current packs/day: 0.00 Average packs/day: 2.0 packs/day for 30.0 years (60.0 ttl pk-yrs) Types: Cigarettes Start date: 08/22/1970 Quit date: 08/22/2000 Years since quittin.1 Smokeless tobacco: Never Vaping Use Vaping status: Never Used Substance Use Topics Alcohol use: Not Currently Comment: very occasional Drug use: Not Currently Types: Marijuana Past medical history, appointments, medications, allergies reviewed. Pertinent Lab/Diagnostic Studies are reviewed and discussed today Current Outpatient Medications: cefdinir (OMNICEF) 300 mg capsule warfarin (COUMADIN) 1 mg tablet ondansetron orally disintegrating (ZOFRAN ODT) 4 mg disintegrating tablet empagliflozin (JARDIANCE) 10 mg tablet HYDROcodone-acetaminophen (NORCO) 5-325 mg per tablet metOLazone (ZAROXOLYN) 2.5 mg tablet dilTIAZem CD (CARDIZEM CD) 180 mg 24 hr capsule potassium chloride SR (MICRO-K) 10 mEq CR capsule leflunomide (ARAVA) 10 mg tablet levothyroxine (SYNTHROID) 25 mcg tablet gabapentin (NEURONTIN) [address] (PROTONIX) 40 mg tablet furosemide (LASIX) 40 mg tablet atenolol (TENORMIN) 25 mg tablet TRELEGY ELLIPTA 100-62.5-25 mcg inhalation powder Magnesium 30 mg tablet calcium carbonate/vitamin d3(CALCIUM 600 + D(3) 600 MG (1,500)-200 UNIT TAB) DAILY MULTIPLE TAB docusate sodium (COLACE) 100 mg capsule Health Maintenance Cervical Cancer Screening@ Review Of Systems Constitutional: (+) low-grade fever, (+) fatigue Respiratory: (+) pain with inspiration, (+) hemoptysis Gastrointestinal: (+) constipation Genitourinary: (-) dysuria Musculoskeletal: (+) back pain, (+) weakness Neurological: (-) dizziness Skin: (-) erythema Physical Exam BP 112/65 Pulse 110 Temp 37.2 ?C (99 ?F) (Oral) Resp 16 Wt 58.3 kg (128 lb 9.6 oz) SpO2 88% BMI 26.35 kg/m? GENERAL: NAD, alert and oriented. SKIN: Unremarkable, no rash or skin lesions. HEAD: Normocephalic. EYES: PERRLA, EOMI, conjunctiva clear. EARS: External ears normal, canals clear, TM's normal. NOSE/SINUSES: Nares normal. Septum midline. OROPHARYNX: Lips, mucosa, and tongue normal, good dentition. No oral lesions noted. NECK: Supple, no lymphadenopathy, normal thyroid, no carotid bruits. LUNGS: Clear to auscultation bilaterally, no wheezes/rhonchi/rales. HEART: Regular rate and rhythm, no murmurs. No ectopy. EXTREMITIES: Normal, no deformities, no skin discoloration, no edema. NEURO: Awake, alert and oriented x3, cranial nerves II-XII grossly intact, normal gait, no involuntary motions. Labs: - INR: 2.5 - INR: 8.1 - Hyperkalemia - Anemia - Streptococcus pneumoniae identified Imaging: - (01/2024) Echocardiogram: Ejection fraction 57% Assessment and Plan 1. Pneumonia of lower lobe due to Streptococcus pneumoniae, unspecified laterality ([facility]) (J13) Continued fever (R50.9) Pneumonia due to Streptococcus pneumoniae led to acute respiratory failure and septic shock. Patient experienced continued fever after discharge, likely related to ongoing infection. - Continue cefdinir for an additional 9 days. - Monitor temperature closely; if fever persists after completing antibiotics, perform blood cultures. 2. Acute respiratory failure with hypoxia ([facility]) (J96.01) Acute respiratory failure with hypoxia secondary to pneumonia and CHF exacerbation. Required intubation and ICU admission; now weaned off ventilator and on supplemental oxygen. - Continue Trelegy for respiratory support. - Monitor respiratory status closely. 3. Chronic atrial fibrillation ([facility]) (I48.20) Chronic atrial fibrillation with RVR during hospitalization. Warfarin therapy was held due to elevated INR of 8.1; currently on Coumadin with therapeutic INR of 2.5. - Continue Coumadin therapy. - Monitor INR levels regularly. 4. Heart failure, ACC/AHA stage C with preserved ejection fraction ([facility]) (I50.30) CHF with preserved ejection fraction (EF 57% from January 2024). Contributed to acute respiratory failure during hospitalization. - Continue Lasix and metolazone for fluid management. - Monitor for signs of fluid overload. 5. Septic shock ([facility]) (A41.9) Septic shock secondary to pneumonia during hospitalization. Patient has stabilized and is now at home. - Continue current antibiotic regimen. - Monitor for signs of infection. 6. Acute renal failure, unspecified acute renal failure type ([facility]) (N17.9) Acute renal failure during hospitalization, likely due to hypotension and hyperkalemia. Renal function has improved. - Monitor renal function with follow-up labs. - Continue potassium chloride supplementation. 7. Hypokalemia (E87.6) Hypokalemia during hospitalization, now being managed with potassium chloride supplementation. - Continue potassium chloride as prescribed. - Monitor serum potassium levels. 8. Hospital discharge follow-up (Z09) Follow-up after hospitalization for acute respiratory failure, pneumonia, and septic shock. Patient is now at home with home health services. - Continue current medication regimen, including Jardiance, Neurontin, Cardizem, thyroid medication, magnesium, Protonix, and Trelegy. - Address constipation with Metamucil, docusate, and increased water intake. - Follow-up with primary care and specialists as needed. Voice recognition software was used to compose this office note. Please excuse any unintended typographical errors. The patient consented to the use of ambient [employer] software for draft documentation of the visit consistent with [facility]?s Notice of Privacy Practices. Andra Rodrigues MD Allergies As of Date: 10/15/2024 Noted Allergy Reaction ADHESIVE TAPE (ROSINS) 08/22/2005 2 - Rash IBUPROFEN 06/06/2014 Comments: Pt on coumadin VICODIN (HYDROCODONE-ACETAMINOPHE*12/15/2014 8 - GI Upset Date Reviewed: 10/15/2024 Reviewed by: Melissa Luz MA - Fully Assessed Reason for Visit: ER F/U [41] Cmt: 09/27/24-10/04/24 pneumonia AND sepsis Primary Visit Diagnosis:Hospital discharge follow-up [Z09] Other Visit Diagnoses:Pneumonia of lower lobe due to Streptococcus pneumoniae, unspecified laterality (HCC) [J13] Continued fever [R50.9] Acute respiratory failure with hypoxia ([facility]) [J96.01] Chronic atrial fibrillation (HCC) [I48.20] Heart failure, ACC/AHA stage C with preserved ejection fraction (HCC) [I50.30] Septic shock (HCC) [A41.9, R65.21] Acute renal failure, unspecified acute renal failure type (HCC) [N17.9] Hypokalemia [E87.6] Order(s):BACTERIAL CULTURE, BLOOD [SQBLCUL] Order #: [id number] FUTURE BACTERIAL CULTURE, BLOOD [SQBLCUL] Order #: [id number] FUTURE docusate sodium (COLACE) 100 mg capsuleTake 1 capsule by mouth two times a day as needed for constipation.Disp: 60 capsuleRfl: 2 Prescriptions as of 10/15/2024 - docusate sodium (COLACE) 100 mg capsule Take 1 capsule by mouth two times a day as needed for constipation. - cefdinir (OMNICEF) 300 mg capsule Take 1 capsule by mouth two times a day for 10 days. - warfarin (COUMADIN) 1 mg tablet Take 1 tablet by mouth once daily. Please take daily as directed - ondansetron orally disintegrating (ZOFRAN ODT) 4 mg disintegrating tablet Take 1 tablet by mouth every 6 hours as needed for nausea/vomiting. - empagliflozin (JARDIANCE) 10 mg tablet Take 1 tablet by mouth daily with breakfast. - HYDROcodone-acetaminophen (NORCO) 5-325 mg per tablet Take 1 tablet by mouth every 8 hours as needed for pain for up to 30 days. - metOLazone (ZAROXOLYN) 2.5 mg tablet Take 1 tablet by mouth every other day. - dilTIAZem CD (CARDIZEM CD) 180 mg 24 hr capsule Take 1 capsule by mouth once daily. - potassium chloride SR (MICRO-K) 10 mEq CR capsule Take 2 capsules by mouth two times a day. - leflunomide (ARAVA) 10 mg tablet Take 1 tablet by mouth once daily. - levothyroxine (SYNTHROID) 25 mcg tablet Take 1 tablet by mouth daily before breakfast. - gabapentin (NEURONTIN) 300 mg capsule Take 1 capsule by mouth two times a day. - pantoprazole DR (PROTONIX) 40 mg tablet Take 1 tablet by mouth daily before breakfast. Take on empty stomach, 1/2 hr before meal. - furosemide (LASIX) 40 mg tablet Take 1 tablet by mouth once daily. Takes twice daily if with increased edema - atenolol (TENORMIN) 25 mg tablet Take 1 tablet by mouth two times a day. - TRELEGY ELLIPTA 100-62.5-25 mcg inhalation powder Inhale 1 Puff as instructed once daily. - Magnesium 30 mg tablet Take 1 tablet by mouth twice daily. - calcium carbonate/vitamin d3(CALCIUM 600 + D(3) 600 MG (1,500)-200 UNIT TAB) Take one(1) tablet twice daily BY MOUTH. - DAILY MULTIPLE TAB Take one(1) tablet daily BY MOUTH. Problem List As Of Date 10/15/2024 Noted Resolved Osteoarthrosis, unspecified whether generalized* 03/11/2017 AMNESIA (RETROGRADE) TRANSIENT GLOBAL [G45.4] 07/15/2007 06/26/2023 HIGH BLOOD PRESSURE-NO HYPERTENSN [R03.0] 07/15/2007 03/11/2017 INSOMNIA [G47.00] 07/15/2007 TOBACCO USE - PERSONAL HX [Z87.891] 07/15/2007 03/11/2017 Hyperlipidemia [E78.5] 08/20/2007 TIA (transient ischemic attack) [G45.9] 12/16/2007 06/26/2023 Acute gastritis with hemorrhage [K29.01] 10/13/2008 03/11/2017 Acute gastritis without mention of hemorrhage [*10/13/2008 03/11/2017 Hyperlipemia [E78.5] 06/16/2009 02/02/2016 Atrial Fibrillation [I48.91] 06/16/2009 12/16/2014 Sicca syndrome (HCC) [M35.00] 03/11/2017 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] 03/11/2017 Generalized Osteoarthrosis, Involving Hand [M15* Diarrhea [R19.7] 10/03/2009 12/16/2014 Diverticulosis of colon (without mention of hem*10/03/2009 06/26/2023 Internal hemorrhoids without mention of complic*10/03/2009 03/11/2017 Mitral regurgitation [I34.0] 09/02/2011 Right wrist pain [M25.531] 12/15/2012 03/11/2017 Uterovaginal prolapse [N81.4] 07/29/2013 03/11/2017 Cystocele [ISW1792] 07/29/2013 06/26/2023 Rotator cuff tear arthropathy of both shoulders*08/24/2013 PMB (postmenopausal bleeding) [N95.0] 09/07/2013 03/11/2017 Atrial fibrillation (HCC) [I48.91] 12/16/2014 Psoas tendinitis of right side [M76.11] 12/05/2015 03/11/2017 Gastroesophageal reflux disease without esophag*03/11/2016 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 *07/08/2016 Bilateral hip pain [M25.551, M25.552] 03/11/2017 S/P lumbar fusion [Z98.1] 06/02/2017 Abrasion of left forearm [S50.812A] 06/26/2017 03/18/2023 Laceration of left forearm [S51.812A] 06/26/2017 03/18/2023 Contusion of left hand [S60.222A] 06/26/2017 03/18/2023 Hematoma of left hip [S70.02XA] 06/26/2017 06/26/2023 Contusion of left knee [S80.02XA] 06/26/2017 03/18/2023 Primary osteoarthritis involving multiple joint*03/24/2018 Centrilobular emphysema (HCC) [J43.2] 04/13/2020 Gastrointestinal hemorrhage associated with ano*11/22/2020 06/26/2023 Iron deficiency anemia due to chronic blood los*11/22/2020 Pinched nerve in neck [G58.9] 01/30/2021 06/05/2021 Simple chronic bronchitis (HCC) [J41.0] 03/26/2021 Nonrheumatic tricuspid valve regurgitation [I36*03/26/2021 Congestive heart failure, unspecified HF chroni*05/12/2023 Acute respiratory failure with hypoxia and hype*05/12/2023 03/17/2024 Pulmonary hypertension due to lung diseases and*06/23/2023 Acquired hypothyroidism [E03.9] 01/23/2022 Rheumatoid arthritis with positive rheumatoid f*09/17/2023 PAH (pulmonary artery hypertension) (HCC) [I27.*07/01/2024 Other instructions from your clinician: We discussed your recent hospitalization and follow-up care: - You were hospitalized from September 27 to October 04 for acute on chronic respiratory failure with hypoxia, chronic atrial fibrillation with RVR, and pneumonia caused by Streptococcus pneumoniae. You were intubated and treated in the ICU, then transferred to a progressive care unit before being discharged home. - You were treated with Rocephin and Zithromax in the hospital and discharged on cefdinir, potassium chloride, and magnesium. You are currently on cefdinir for an extended course. Please continue taking this as prescribed for the next 9 days. If you develop a fever or other concerning symptoms, contact me immediately. - Your INR is now therapeutic at 2.5. Continue Coumadin as prescribed, and let your home health nurse monitor your INR levels. We discussed your ongoing symptoms and care plan: - You reported weakness, fatigue, and occasional fevers (up to 101.2?F earlier this week). Since restarting cefdinir, your fever has improved but remains slightly elevated at 99?F. If your fever returns or persists after completing the antibiotic course, please contact me immediately for blood cultures and further evaluation. - You mentioned coughing up blood and chest pain when breathing. Your lungs currently sound clear, and this may be residual irritation from pneumonia or your recent intubation. Continue monitoring your symptoms, and let me know if they worsen. - You are experiencing constipation, likely related to hydrocodone use. To manage this: - Take Metamucil daily (your daughter will pick this up for you). - Take docusate (stool softener) twice daily. - Take Miralax (17 grams) daily until your bowel movements become regular. - Drink plenty of water throughout the day. - If your symptoms persist, let me know. We discussed your medications: - Continue taking your current medications, including Jardiance, Lasix, Neurontin, Cardizem, thyroid medication, magnesium, metolazone, Protonix, Trelegy, and Coumadin, as prescribed. - You restarted Trelegy after your hospitalization, and it has been helping with your breathing. Please continue using it daily. - You may take hydrocodone for severe back pain as needed, but limit its use to avoid worsening constipation. We discussed your home health care: - You are receiving home health services, including visits from nurses and occupational and physical therapists. Please continue with therapy as tolerated to improve your strength and mobility. - Use your walker to prevent falls. Follow-up instructions: - If you develop a fever, worsening weakness, or other concerning symptoms, contact me immediately. - If your bowel movements do not improve despite the above measures, let me know. - Continue working with your home health team and attending therapy sessions. Please let me know if you have any questions or concerns about your care plan. Prescriptions ordered this encounter Disp Refills Start End DOCUSATE SODIUM 100 MG CAPSULE 60 c* 2 10/15/2024 01/13/2025 Route: ORAL Sig: Take 1 capsule by mouth two times a day as needed for constipation. Level of Service: [facility] F2F 14 SINGH D DISCHARGE [74332] Encounter Status:Closed by ANDRA RODRIGUES on 10/15/24 [place] Observed: 10/14/2024 12:00 AM Status: COMPLETED Source: [facility] Telephone (INTMWS) MALU KITCHEN ([id number]) 1945 F Vendor Date Time Provider Department 10/14/24 ANDRA RODRIGUES INTWS During your visit today, we recorded the following information about you: Zahra Prater LPN 10/14/2024 3:36 PM Signed Last INR:2.5 10/14/2024 per mdINR home monitor Current dose of coumadin is: 1mg daily. Last date of dose change: 10/08/24. Previous INR (date and result): 10/07/24 was 1.4 Additional Clinical Information or narrative: INR goal is 2-3. Pt has appt with pcp 10/15/24 for hospital f/u Per other encounter pt has finished antibiotic Friday Per home INR she checks this weekly.. Andra Rodrigues MD 10/14/2024 4:07 PM Signed Cont the same and recheck in a weeks time Please let her also know that [facility] has fever. Regards, Zahra Arroyo MD, LPN 10/14/2024 4:44 PM Signed Patient notified of results and provider's instructions. Patient verbalizes understanding. Zahra Prater LPN Allergies As of Date: 10/14/2024 Noted Allergy Reaction ADHESIVE TAPE (ROSINS) 08/22/2005 2 - Rash IBUPROFEN 06/06/2014 Comments: Pt on coumadin VICODIN (HYDROCODONE-ACETAMINOPHE*12/15/2014 8 - GI Upset Date Reviewed: 09/23/2024 Reviewed by: Shefali Rich APRN.TRAINING LEAD - Fully Assessed Reason for Visit: Anticoagulation [8] Order(s):PROTHROMBIN TIME [SQPT] Order #: [id number] Prescriptions as of 10/14/2024 - cefdinir (OMNICEF) 300 mg capsule Take 1 capsule by mouth two times a day for 10 days. - warfarin (COUMADIN) 1 mg tablet Take 1 tablet by mouth once daily. Please take daily as directed - ondansetron orally disintegrating (ZOFRAN ODT) 4 mg disintegrating tablet Take 1 tablet by mouth every 6 hours as needed for nausea/vomiting. - empagliflozin (JARDIANCE) 10 mg tablet Take 1 tablet by mouth daily with breakfast. - HYDROcodone-acetaminophen (NORCO) 5-325 mg per tablet Take 1 tablet by mouth every 8 hours as needed for pain for up to 30 days. - metOLazone (ZAROXOLYN) 2.5 mg tablet Take 1 tablet by mouth every other day. - dilTIAZem CD (CARDIZEM CD) 180 mg 24 hr capsule Take 1 capsule by mouth once daily. - potassium chloride SR (MICRO-K) 10 mEq CR capsule Take 2 capsules by mouth two times a day. - leflunomide (ARAVA) 10 mg tablet Take 1 tablet by mouth once daily. - levothyroxine (SYNTHROID) 25 mcg tablet Take 1 tablet by mouth daily before breakfast. - gabapentin (NEURONTIN) 300 mg capsule Take 1 capsule by mouth two times a day. - pantoprazole DR (PROTONIX) 40 mg tablet Take 1 tablet by mouth daily before breakfast. Take on empty stomach, 1/2 hr before meal. - furosemide (LASIX) 40 mg tablet Take 1 tablet by mouth once daily. Takes twice daily if with increased edema - atenolol (TENORMIN) 25 mg tablet Take 1 tablet by mouth two times a day. - TRELEGY ELLIPTA 100-62.5-25 mcg inhalation powder Inhale 1 Puff as instructed once daily. - Magnesium 30 mg tablet Take 1 tablet by mouth twice daily. - calcium carbonate/vitamin d3(CALCIUM 600 + D(3) 600 MG (1,500)-200 UNIT TAB) Take one(1) tablet twice daily BY MOUTH. - DAILY MULTIPLE TAB Take one(1) tablet daily BY MOUTH. Problem List As Of Date 10/14/2024 Noted Resolved Osteoarthrosis, unspecified whether generalized* 03/11/2017 AMNESIA (RETROGRADE) TRANSIENT GLOBAL [G45.4] 07/15/2007 06/26/2023 HIGH BLOOD PRESSURE-NO HYPERTENSN [R03.0] 07/15/2007 03/11/2017 INSOMNIA [G47.00] 07/15/2007 TOBACCO USE - PERSONAL HX [Z87.891] 07/15/2007 03/11/2017 Hyperlipidemia [E78.5] 08/20/2007 TIA (transient ischemic attack) [G45.9] 12/16/2007 06/26/2023 Acute gastritis with hemorrhage [K29.01] 10/13/2008 03/11/2017 Acute gastritis without mention of hemorrhage [*10/13/2008 03/11/2017 Hyperlipemia [E78.5] 06/16/2009 02/02/2016 Atrial Fibrillation [I48.91] 06/16/2009 12/16/2014 Sicca syndrome (HCC) [M35.00] 03/11/2017 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] 03/11/2017 Generalized Osteoarthrosis, Involving Hand [M15* Diarrhea [R19.7] 10/03/2009 12/16/2014 Diverticulosis of colon (without mention of hem*10/03/2009 06/26/2023 Internal hemorrhoids without mention of complic*10/03/2009 03/11/2017 Mitral regurgitation [I34.0] 09/02/2011 Right wrist pain [M25.531] 12/15/2012 03/11/2017 Uterovaginal prolapse [N81.4] 07/29/2013 03/11/2017 Cystocele [LCD3097] 07/29/2013 06/26/2023 Rotator cuff tear arthropathy of both shoulders*08/24/2013 PMB (postmenopausal bleeding) [N95.0] 09/07/2013 03/11/2017 Atrial fibrillation (HCC) [I48.91] 12/16/2014 Psoas tendinitis of right side [M76.11] 12/05/2015 03/11/2017 Gastroesophageal reflux disease without esophag*03/11/2016 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 *07/08/2016 Bilateral hip pain [M25.551, M25.552] 03/11/2017 S/P lumbar fusion [Z98.1] 06/02/2017 Abrasion of left forearm [S50.812A] 06/26/2017 03/18/2023 Laceration of left forearm [S51.812A] 06/26/2017 03/18/2023 Contusion of left hand [S60.222A] 06/26/2017 03/18/2023 Hematoma of left hip [S70.02XA] 06/26/2017 06/26/2023 Contusion of left knee [S80.02XA] 06/26/2017 03/18/2023 Primary osteoarthritis involving multiple joint*03/24/2018 Centrilobular emphysema (HCC) [J43.2] 04/13/2020 Gastrointestinal hemorrhage associated with ano*11/22/2020 06/26/2023 Iron deficiency anemia due to chronic blood los*11/22/2020 Pinched nerve in neck [G58.9] 01/30/2021 06/05/2021 Simple chronic bronchitis (HCC) [J41.0] 03/26/2021 Nonrheumatic tricuspid valve regurgitation [I36*03/26/2021 Congestive heart failure, unspecified HF chroni*05/12/2023 Acute respiratory failure with hypoxia and hype*05/12/2023 03/17/2024 Pulmonary hypertension due to lung diseases and*06/23/2023 Acquired hypothyroidism [E03.9] 01/23/2022 Rheumatoid arthritis with positive rheumatoid f*09/17/2023 PAH (pulmonary artery hypertension) (HCC) [I27.*07/01/2024 Encounter Status:Closed by ZAHRA PRATER on 10/14/24 CNPN Observed: 10/14/2024 12:00 AM Status: COMPLETED Source: [facility] Telephone (INTMWS) MALU KITCHEN ([id number]) 1945 F Vendor Date Time Provider Department 10/14/24 ANDRA RODRIGUES INTMWS During your visit today, we recorded the following information about you: Jeri Banuelos RN 10/14/2024 3:29 PM Signed Arcelia with [facility] calling and states she visited patient today. Pt has appt with Dr. Rodrigues tomorrow. States patient completed her antibiotic for pneumonia and sepsis. Reports her temp today was at max, 100.2. Pt continues with productive cough with yellow and blood tinged sputum. Pt on coumadin and did have intubation not too long ago. Nurse reports her lungs velasco are clear. Call Arcelia with any new orders at [phone], or provider may address at OV tomorrow. Jeri Banuelos RN . Andra Rodrigues MD 10/14/2024 4:06 PM Signed I sent more cefdinir to the patient Regards, Melissa Balbuena MD, MA 10/15/2024 1:36 PM Signed The following approved medication requests have been transmitted electronically. Requested Prescriptions Signed Prescriptions Disp Refills cefdinir (OMNICEF) 300 mg capsule 20 capsule 0 Sig: Take 1 capsule by mouth two times a day for 10 days. Authorizing Provider: ANDRA RODRIGUES MA Allergies As of Date: 10/14/2024 Noted Allergy Reaction ADHESIVE TAPE (ROSINS) 08/22/2005 2 - Rash IBUPROFEN 06/06/2014 Comments: Pt on coumadin VICODIN (HYDROCODONE-ACETAMINOPHE*12/15/2014 8 - GI Upset Date Reviewed: 09/23/2024 Reviewed by: Shefali Rich APRN.TRAINING LEAD - Fully Assessed Reason for Visit: Patient Update [1234] Order(s):cefdinir (OMNICEF) 300 mg capsuleTake 1 capsule by mouth two times a day for 10 days.Disp: 20 capsuleRfl: 0 Prescriptions as of 10/15/2024 - cefdinir (OMNICEF) 300 mg capsule Take 1 capsule by mouth two times a day for 10 days. - warfarin (COUMADIN) 1 mg tablet Take 1 tablet by mouth once daily. Please take daily as directed - ondansetron orally disintegrating (ZOFRAN ODT) 4 mg disintegrating tablet Take 1 tablet by mouth every 6 hours as needed for nausea/vomiting. - empagliflozin (JARDIANCE) 10 mg tablet Take 1 tablet by mouth daily with breakfast. - HYDROcodone-acetaminophen (NORCO) 5-325 mg per tablet Take 1 tablet by mouth every 8 hours as needed for pain for up to 30 days. - metOLazone (ZAROXOLYN) 2.5 mg tablet Take 1 tablet by mouth every other day. - dilTIAZem CD (CARDIZEM CD) 180 mg 24 hr capsule Take 1 capsule by mouth once daily. - potassium chloride SR (MICRO-K) 10 mEq CR capsule Take 2 capsules by mouth two times a day. - leflunomide (ARAVA) 10 mg tablet Take 1 tablet by mouth once daily. - levothyroxine (SYNTHROID) 25 mcg tablet Take 1 tablet by mouth daily before breakfast. - gabapentin (NEURONTIN) 300 mg capsule Take 1 capsule by mouth two times a day. - pantoprazole DR (PROTONIX) 40 mg tablet Take 1 tablet by mouth daily before breakfast. Take on empty stomach, 1/2 hr before meal. - furosemide (LASIX) 40 mg tablet Take 1 tablet by mouth once daily. Takes twice daily if with increased edema - atenolol (TENORMIN) 25 mg tablet Take 1 tablet by mouth two times a day. - TRELEGY ELLIPTA 100-62.5-25 mcg inhalation powder Inhale 1 Puff as instructed once daily. - Magnesium 30 mg tablet Take 1 tablet by mouth twice daily. - calcium carbonate/vitamin d3(CALCIUM 600 + D(3) 600 MG (1,500)-200 UNIT TAB) Take one(1) tablet twice daily BY MOUTH. - DAILY MULTIPLE TAB Take one(1) tablet daily BY MOUTH. Problem List As Of Date 10/14/2024 Noted Resolved Osteoarthrosis, unspecified whether generalized* 03/11/2017 AMNESIA (RETROGRADE) TRANSIENT GLOBAL [G45.4] 07/15/2007 06/26/2023 HIGH BLOOD PRESSURE-NO HYPERTENSN [R03.0] 07/15/2007 03/11/2017 INSOMNIA [G47.00] 07/15/2007 TOBACCO USE - PERSONAL HX [Z87.891] 07/15/2007 03/11/2017 Hyperlipidemia [E78.5] 08/20/2007 TIA (transient ischemic attack) [G45.9] 12/16/2007 06/26/2023 Acute gastritis with hemorrhage [K29.01] 10/13/2008 03/11/2017 Acute gastritis without mention of hemorrhage [*10/13/2008 03/11/2017 Hyperlipemia [E78.5] 06/16/2009 02/02/2016 Atrial Fibrillation [I48.91] 06/16/2009 12/16/2014 Sicca syndrome (HCC) [M35.00] 03/11/2017 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] 03/11/2017 Generalized Osteoarthrosis, Involving Hand [M15* Diarrhea [R19.7] 10/03/2009 12/16/2014 Diverticulosis of colon (without mention of hem*10/03/2009 06/26/2023 Internal hemorrhoids without mention of complic*10/03/2009 03/11/2017 Mitral regurgitation [I34.0] 09/02/2011 Right wrist pain [M25.531] 12/15/2012 03/11/2017 Uterovaginal prolapse [N81.4] 07/29/2013 03/11/2017 Cystocele [[id number]] 07/29/2013 06/26/2023 Rotator cuff tear arthropathy of both shoulders*08/24/2013 PMB (postmenopausal bleeding) [N95.0] 09/07/2013 03/11/2017 Atrial fibrillation (HCC) [I48.91] 12/16/2014 Psoas tendinitis of right side [M76.11] 12/05/2015 03/11/2017 Gastroesophageal reflux disease without esophag*03/11/2016 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 *07/08/2016 Bilateral hip pain [M25.551, M25.552] 03/11/2017 S/P lumbar fusion [Z98.1] 06/02/2017 Abrasion of left forearm [S50.812A] 06/26/2017 03/18/2023 Laceration of left forearm [S51.812A] 06/26/2017 03/18/2023 Contusion of left hand [S60.222A] 06/26/2017 03/18/2023 Hematoma of left hip [S70.02XA] 06/26/2017 06/26/2023 Contusion of left knee [S80.02XA] 06/26/2017 03/18/2023 Primary osteoarthritis involving multiple joint*03/24/2018 Centrilobular emphysema (HCC) [J43.2] 04/13/2020 Gastrointestinal hemorrhage associated with ano*11/22/2020 06/26/2023 Iron deficiency anemia due to chronic blood los*11/22/2020 Pinched nerve in neck [G58.9] 01/30/2021 06/05/2021 Simple chronic bronchitis (HCC) [J41.0] 03/26/2021 Nonrheumatic tricuspid valve regurgitation [I36*03/26/2021 Congestive heart failure, unspecified HF chroni*05/12/2023 Acute respiratory failure with hypoxia and hype*05/12/2023 03/17/2024 Pulmonary hypertension due to lung diseases and*06/23/2023 Acquired hypothyroidism [E03.9] 01/23/2022 Rheumatoid arthritis with positive rheumatoid f*09/17/2023 PAH (pulmonary artery hypertension) (HCC) [I27.*07/01/2024 Prescriptions ordered this encounter Disp Refills Start End CEFDINIR 300 MG CAPSULE 20 c* 0 10/14/2024 10/24/2024 Route: ORAL Sig: Take 1 capsule by mouth two times a day for 10 days. Encounter Status:Closed by MELISSA LUZ on 10/15/24 [place] Observed: 10/14/2024 12:00 AM Status: COMPLETED Source: [facility] Telephone (INTMWS) MALU KITCHEN ([id number]) 1945 F Vendor Date Time Provider Department 10/14/24 ANDRA RODRIGUES INTMWS During your visit today, we recorded the following information about you: Sonia Perez, RN 10/14/2024 8:46 AM Signed Stacy from [facility] calls and reports that patient as supposed to have OT evaluation this week. Stacy asking for a delay in order so that OT evaluation can be done next week? Please review and advise, MOSHE Rios Chitra, MD 10/14/2024 9:35 AM Signed Ok for delay. Regards, Tammi Ardon MD, MA 10/14/2024 10:40 AM Signed Stacy notified. Allergies As of Date: 10/14/2024 Noted Allergy Reaction ADHESIVE TAPE (ROSINS) 08/22/2005 2 - Rash IBUPROFEN 06/06/2014 Comments: Pt on coumadin VICODIN (HYDROCODONE-ACETAMINOPHE*12/15/2014 8 - GI Upset Date Reviewed: 09/23/2024 Reviewed by: Shefali Rich APRN.TRAINING LEAD - Fully Assessed Reason for Visit: OT Home Care Evaluation [Other] Prescriptions as of 10/14/2024 - warfarin (COUMADIN) 1 mg tablet Take 1 tablet by mouth once daily. Please take daily as directed - ondansetron orally disintegrating (ZOFRAN ODT) 4 mg disintegrating tablet Take 1 tablet by mouth every 6 hours as needed for nausea/vomiting. - empagliflozin (JARDIANCE) 10 mg tablet Take 1 tablet by mouth daily with breakfast. - HYDROcodone-acetaminophen (NORCO) 5-325 mg per tablet Take 1 tablet by mouth every 8 hours as needed for pain for up to 30 days. - metOLazone (ZAROXOLYN) 2.5 mg tablet Take 1 tablet by mouth every other day. - dilTIAZem CD (CARDIZEM CD) 180 mg 24 hr capsule Take 1 capsule by mouth once daily. - potassium chloride SR (MICRO-K) 10 mEq CR capsule Take 2 capsules by mouth two times a day. - leflunomide (ARAVA) 10 mg tablet Take 1 tablet by mouth once daily. - levothyroxine (SYNTHROID) 25 mcg tablet Take 1 tablet by mouth daily before breakfast. - gabapentin (NEURONTIN) 300 mg capsule Take 1 capsule by mouth two times a day. - pantoprazole DR (PROTONIX) 40 mg tablet Take 1 tablet by mouth daily before breakfast. Take on empty stomach, 1/2 hr before meal. - furosemide (LASIX) 40 mg tablet Take 1 tablet by mouth once daily. Takes twice daily if with increased edema - atenolol (TENORMIN) 25 mg tablet Take 1 tablet by mouth two times a day. - TRELEGY ELLIPTA 100-62.5-25 mcg inhalation powder Inhale 1 Puff as instructed once daily. - Magnesium 30 mg tablet Take 1 tablet by mouth twice daily. - calcium carbonate/vitamin d3(CALCIUM 600 + D(3) 600 MG (1,500)-200 UNIT TAB) Take one(1) tablet twice daily BY MOUTH. - DAILY MULTIPLE TAB Take one(1) tablet daily BY MOUTH. Problem List As Of Date 10/14/2024 Noted Resolved Osteoarthrosis, unspecified whether generalized* 03/11/2017 AMNESIA (RETROGRADE) TRANSIENT GLOBAL [G45.4] 07/15/2007 06/26/2023 HIGH BLOOD PRESSURE-NO HYPERTENSN [R03.0] 07/15/2007 03/11/2017 INSOMNIA [G47.00] 07/15/2007 TOBACCO USE - PERSONAL HX [Z87.891] 07/15/2007 03/11/2017 Hyperlipidemia [E78.5] 08/20/2007 TIA (transient ischemic attack) [G45.9] 12/16/2007 06/26/2023 Acute gastritis with hemorrhage [K29.01] 10/13/2008 03/11/2017 Acute gastritis without mention of hemorrhage [*10/13/2008 03/11/2017 Hyperlipemia [E78.5] 06/16/2009 02/02/2016 Atrial Fibrillation [I48.91] 06/16/2009 12/16/2014 Sicca syndrome (HCC) [M35.00] 03/11/2017 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] 03/11/2017 Generalized Osteoarthrosis, Involving Hand [M15* Diarrhea [R19.7] 10/03/2009 12/16/2014 Diverticulosis of colon (without mention of hem*10/03/2009 06/26/2023 Internal hemorrhoids without mention of complic*10/03/2009 03/11/2017 Mitral regurgitation [I34.0] 09/02/2011 Right wrist pain [M25.531] 12/15/2012 03/11/2017 Uterovaginal prolapse [N81.4] 07/29/2013 03/11/2017 Cystocele [AQZ9060] 07/29/2013 06/26/2023 Rotator cuff tear arthropathy of both shoulders*08/24/2013 PMB (postmenopausal bleeding) [N95.0] 09/07/2013 03/11/2017 Atrial fibrillation (HCC) [I48.91] 12/16/2014 Psoas tendinitis of right side [M76.11] 12/05/2015 03/11/2017 Gastroesophageal reflux disease without esophag*03/11/2016 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 *07/08/2016 Bilateral hip pain [M25.551, M25.552] 03/11/2017 S/P lumbar fusion [Z98.1] 06/02/2017 Abrasion of left forearm [S50.812A] 06/26/2017 03/18/2023 Laceration of left forearm [S51.812A] 06/26/2017 03/18/2023 Contusion of left hand [S60.222A] 06/26/2017 03/18/2023 Hematoma of left hip [S70.02XA] 06/26/2017 06/26/2023 Contusion of left knee [S80.02XA] 06/26/2017 03/18/2023 Primary osteoarthritis involving multiple joint*03/24/2018 Centrilobular emphysema (HCC) [J43.2] 04/13/2020 Gastrointestinal hemorrhage associated with ano*11/22/2020 06/26/2023 Iron deficiency anemia due to chronic blood los*11/22/2020 Pinched nerve in neck [G58.9] 01/30/2021 06/05/2021 Simple chronic bronchitis (HCC) [J41.0] 03/26/2021 Nonrheumatic tricuspid valve regurgitation [I36*03/26/2021 Congestive heart failure, unspecified HF chroni*05/12/2023 Acute respiratory failure with hypoxia and hype*05/12/2023 03/17/2024 Pulmonary hypertension due to lung diseases and*06/23/2023 Acquired hypothyroidism [E03.9] 01/23/2022 Rheumatoid arthritis with positive rheumatoid f*09/17/2023 PAH (pulmonary artery hypertension) (HCC) [I27.*07/01/2024 Encounter Status:Closed by TAMMI DOTSON on 10/14/24 CNPN Observed: 10/08/2024 12:00 AM Status: COMPLETED Source: [facility] Telephone (INTMWS) FIDELINAMALU S ([id number]) 1945 F Vendor Date Time Provider Department 10/08/24 ANDRA RODRIGUES INTMWS During your visit today, we recorded the following information about you: Zahra Prater LPN 10/08/2024 10:20 AM Signed Last INR: 1.4 10/07/2024 per home INR although pt says this was done 10/06/24 Current dose of coumadin is: 1mg daily . Last date of dose change: . Previous INR (date and result): per home INR was 09/21/24 was 2.0 Additional Clinical Information or narrative: INR goal is 2-3 Pt says on 10/06/24 she took 2 mg. Pt findings are negative. Call pt with further instructions. Normally the INR is checked weekly per [facility]IN[facility] home montioring Andra Rodrigues MD 10/08/2024 5:19 PM Signed Please asked patient to take 2 mg today, Friday, Friday, Friday and then return to 1 mg on Friday and to give an INR on . Andra Quevedo MD, Linda M, LPN 10/08/2024 5:26 PM Signed Spoke with pt gave information provided. She states will need refill on 1mg to [facility] will run out. Zahra Prater LPN 10/11/2024 9:39 AM Signed Per med list this was sent 10/08/24. Allergies As of Date: 10/08/2024 Noted Allergy Reaction ADHESIVE TAPE (ROSINS) 08/22/2005 2 - Rash IBUPROFEN 06/06/2014 Comments: Pt on coumadin VICODIN (HYDROCODONE-ACETAMINOPHE*12/15/2014 8 - GI Upset Date Reviewed: 09/23/2024 Reviewed by: Shefali Rich APRN.TRAINING LEAD - Fully Assessed Reason for Visit: Anticoagulation [8] Visit Diagnosis:Persistent atrial fibrillation (HCC) [I48.19] Order(s):PROTHROMBIN TIME [SQPT] Order #: [id number] warfarin (COUMADIN) 1 mg tabletTake 1 tablet by mouth once daily. Please take daily as directedDisp: 90 tabletRfl: 3 Prescriptions as of 10/11/2024 - warfarin (COUMADIN) 1 mg tablet Take 1 tablet by mouth once daily. Please take daily as directed - ondansetron orally disintegrating (ZOFRAN ODT) 4 mg disintegrating tablet Take 1 tablet by mouth every 6 hours as needed for nausea/vomiting. - empagliflozin (JARDIANCE) 10 mg tablet Take 1 tablet by mouth daily with breakfast. - HYDROcodone-acetaminophen (NORCO) 5-325 mg per tablet Take 1 tablet by mouth every 8 hours as needed for pain for up to 30 days. - metOLazone (ZAROXOLYN) 2.5 mg tablet Take 1 tablet by mouth every other day. - dilTIAZem CD (CARDIZEM CD) 180 mg 24 hr capsule Take 1 capsule by mouth once daily. - potassium chloride SR (MICRO-K) 10 mEq CR capsule Take 2 capsules by mouth two times a day. - leflunomide (ARAVA) 10 mg tablet Take 1 tablet by mouth once daily. - levothyroxine (SYNTHROID) 25 mcg tablet Take 1 tablet by mouth daily before breakfast. - gabapentin (NEURONTIN) 300 mg capsule Take 1 capsule by mouth two times a day. - pantoprazole DR (PROTONIX) 40 mg tablet Take 1 tablet by mouth daily before breakfast. Take on empty stomach, 1/2 hr before meal. - furosemide (LASIX) 40 mg tablet Take 1 tablet by mouth once daily. Takes twice daily if with increased edema - atenolol (TENORMIN) 25 mg tablet Take 1 tablet by mouth two times a day. - TRELEGY ELLIPTA 100-62.5-25 mcg inhalation powder Inhale 1 Puff as instructed once daily. - Magnesium 30 mg tablet Take 1 tablet by mouth twice daily. - calcium carbonate/vitamin d3(CALCIUM 600 + D(3) 600 MG (1,500)-200 UNIT TAB) Take one(1) tablet twice daily BY MOUTH. - DAILY MULTIPLE TAB Take one(1) tablet daily BY MOUTH. Problem List As Of Date 10/08/2024 Noted Resolved Osteoarthrosis, unspecified whether generalized* 03/11/2017 AMNESIA (RETROGRADE) TRANSIENT GLOBAL [G45.4] 07/15/2007 06/26/2023 HIGH BLOOD PRESSURE-NO HYPERTENSN [R03.0] 07/15/2007 03/11/2017 INSOMNIA [G47.00] 07/15/2007 TOBACCO USE - PERSONAL HX [Z87.891] 07/15/2007 03/11/2017 Hyperlipidemia [E78.5] 08/20/2007 TIA (transient ischemic attack) [G45.9] 12/16/2007 06/26/2023 Acute gastritis with hemorrhage [K29.01] 10/13/2008 03/11/2017 Acute gastritis without mention of hemorrhage [*10/13/2008 03/11/2017 Hyperlipemia [E78.5] 06/16/2009 02/02/2016 Atrial Fibrillation [I48.91] 06/16/2009 12/16/2014 Sicca syndrome (HCC) [M35.00] 03/11/2017 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] 03/11/2017 Generalized Osteoarthrosis, Involving Hand [M15* Diarrhea [R19.7] 10/03/2009 12/16/2014 Diverticulosis of colon (without mention of hem*10/03/2009 06/26/2023 Internal hemorrhoids without mention of complic*10/03/2009 03/11/2017 Mitral regurgitation [I34.0] 09/02/2011 Right wrist pain [M25.531] 12/15/2012 03/11/2017 Uterovaginal prolapse [N81.4] 07/29/2013 03/11/2017 Cystocele [IHF1471] 07/29/2013 06/26/2023 Rotator cuff tear arthropathy of both shoulders*08/24/2013 PMB (postmenopausal bleeding) [N95.0] 09/07/2013 03/11/2017 Atrial fibrillation (HCC) [I48.91] 12/16/2014 Psoas tendinitis of right side [M76.11] 12/05/2015 03/11/2017 Gastroesophageal reflux disease without esophag*03/11/2016 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 *07/08/2016 Bilateral hip pain [M25.551, M25.552] 03/11/2017 S/P lumbar fusion [Z98.1] 06/02/2017 Abrasion of left forearm [S50.812A] 06/26/2017 03/18/2023 Laceration of left forearm [S51.812A] 06/26/2017 03/18/2023 Contusion of left hand [S60.222A] 06/26/2017 03/18/2023 Hematoma of left hip [S70.02XA] 06/26/2017 06/26/2023 Contusion of left knee [S80.02XA] 06/26/2017 03/18/2023 Primary osteoarthritis involving multiple joint*03/24/2018 Centrilobular emphysema (HCC) [J43.2] 04/13/2020 Gastrointestinal hemorrhage associated with ano*11/22/2020 06/26/2023 Iron deficiency anemia due to chronic blood los*11/22/2020 Pinched nerve in neck [G58.9] 01/30/2021 06/05/2021 Simple chronic bronchitis (HCC) [J41.0] 03/26/2021 Nonrheumatic tricuspid valve regurgitation [I36*03/26/2021 Congestive heart failure, unspecified HF chroni*05/12/2023 Acute respiratory failure with hypoxia and hype*05/12/2023 03/17/2024 Pulmonary hypertension due to lung diseases and*06/23/2023 Acquired hypothyroidism [E03.9] 01/23/2022 Rheumatoid arthritis with positive rheumatoid f*09/17/2023 PAH (pulmonary artery hypertension) (HCC) [I27.*07/01/2024 Prescriptions ordered this encounter Disp Refills Start End WARFARIN 1 MG TABLET 90 t* 3 10/08/2024 Route: ORAL Sig: Take 1 tablet by mouth once daily. Please take daily as directed Medications Discontinued During This Encounter Prescriptions - warfarin (COUMADIN) 1 mg tablet (Discontinued) Take 1 tablet by mouth once daily. Please take daily as directed Encounter Status:Closed by ZAHRA PRATER on 10/11/24 [place] Observed: 10/07/2024 12:00 AM Status: COMPLETED Source: [facility] Telephone (INTMWS) MALU KITCHEN ([id number]) 1945 F Vendor Date Time Provider Department 10/07/24 ANDRA RODRIGUES During your visit today, we recorded the following information about you: Antonia Emerson RN 10/07/2024 2:01 PM Signed Gala- PT- [facility]- reporting POC: will see pt 1 x week for 1 week, the 2 x's week for 4 weeks, for strengthening, gait, transfer training and pain management. No call back needed. Allergies As of Date: 10/07/2024 Noted Allergy Reaction ADHESIVE TAPE (ROSINS) 08/22/2005 2 - Rash IBUPROFEN 06/06/2014 Comments: Pt on coumadin VICODIN (HYDROCODONE-ACETAMINOPHE*12/15/2014 8 - GI Upset Date Reviewed: 09/23/2024 Reviewed by: Shefali Rich APRN.TRAINING LEAD - Fully Assessed Reason for Visit: [facility] PT POC update [Other] Prescriptions as of 10/07/2024 - ondansetron orally disintegrating (ZOFRAN ODT) 4 mg disintegrating tablet Take 1 tablet by mouth every 6 hours as needed for nausea/vomiting. - empagliflozin (JARDIANCE) 10 mg tablet Take 1 tablet by mouth daily with breakfast. - HYDROcodone-acetaminophen (NORCO) 5-325 mg per tablet Take 1 tablet by mouth every 8 hours as needed for pain for up to 30 days. - metOLazone (ZAROXOLYN) 2.5 mg tablet Take 1 tablet by mouth every other day. - dilTIAZem CD (CARDIZEM CD) 180 mg 24 hr capsule Take 1 capsule by mouth once daily. - potassium chloride SR (MICRO-K) 10 mEq CR capsule Take 2 capsules by mouth two times a day. - leflunomide (ARAVA) 10 mg tablet Take 1 tablet by mouth once daily. - levothyroxine (SYNTHROID) 25 mcg tablet Take 1 tablet by mouth daily before breakfast. - gabapentin (NEURONTIN) 300 mg capsule Take 1 capsule by mouth two times a day. - pantoprazole DR (PROTONIX) 40 mg tablet Take 1 tablet by mouth daily before breakfast. Take on empty stomach, 1/2 hr before meal. - warfarin (COUMADIN) 1 mg tablet Take 1 tablet by mouth once daily. Please take daily as directed - furosemide (LASIX) 40 mg tablet Take 1 tablet by mouth once daily. Takes twice daily if with increased edema - atenolol (TENORMIN) 25 mg tablet Take 1 tablet by mouth two times a day. - TRELEGY ELLIPTA 100-62.5-25 mcg inhalation powder Inhale 1 Puff as instructed once daily. - Magnesium 30 mg tablet Take 1 tablet by mouth twice daily. - calcium carbonate/vitamin d3(CALCIUM 600 + D(3) 600 MG (1,500)-200 UNIT TAB) Take one(1) tablet twice daily BY MOUTH. - DAILY MULTIPLE TAB Take one(1) tablet daily BY MOUTH. Problem List As Of Date 10/07/2024 Noted Resolved Osteoarthrosis, unspecified whether generalized* 03/11/2017 AMNESIA (RETROGRADE) TRANSIENT GLOBAL [G45.4] 07/15/2007 06/26/2023 HIGH BLOOD PRESSURE-NO HYPERTENSN [R03.0] 07/15/2007 03/11/2017 INSOMNIA [G47.00] 07/15/2007 TOBACCO USE - PERSONAL HX [Z87.891] 07/15/2007 03/11/2017 Hyperlipidemia [E78.5] 08/20/2007 TIA (transient ischemic attack) [G45.9] 12/16/2007 06/26/2023 Acute gastritis with hemorrhage [K29.01] 10/13/2008 03/11/2017 Acute gastritis without mention of hemorrhage [*10/13/2008 03/11/2017 Hyperlipemia [E78.5] 06/16/2009 02/02/2016 Atrial Fibrillation [I48.91] 06/16/2009 12/16/2014 Sicca syndrome (HCC) [M35.00] 03/11/2017 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] 03/11/2017 Generalized Osteoarthrosis, Involving Hand [M15* Diarrhea [R19.7] 10/03/2009 12/16/2014 Diverticulosis of colon (without mention of hem*10/03/2009 06/26/2023 Internal hemorrhoids without mention of complic*10/03/2009 03/11/2017 Mitral regurgitation [I34.0] 09/02/2011 Right wrist pain [M25.531] 12/15/2012 03/11/2017 Uterovaginal prolapse [N81.4] 07/29/2013 03/11/2017 Cystocele [VXV8234] 07/29/2013 06/26/2023 Rotator cuff tear arthropathy of both shoulders*08/24/2013 PMB (postmenopausal bleeding) [N95.0] 09/07/2013 03/11/2017 Atrial fibrillation (HCC) [I48.91] 12/16/2014 Psoas tendinitis of right side [M76.11] 12/05/2015 03/11/2017 Gastroesophageal reflux disease without esophag*03/11/2016 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 *07/08/2016 Bilateral hip pain [M25.551, M25.552] 03/11/2017 S/P lumbar fusion [Z98.1] 06/02/2017 Abrasion of left forearm [S50.812A] 06/26/2017 03/18/2023 Laceration of left forearm [S51.812A] 06/26/2017 03/18/2023 Contusion of left hand [S60.222A] 06/26/2017 03/18/2023 Hematoma of left hip [S70.02XA] 06/26/2017 06/26/2023 Contusion of left knee [S80.02XA] 06/26/2017 03/18/2023 Primary osteoarthritis involving multiple joint*03/24/2018 Centrilobular emphysema (HCC) [J43.2] 04/13/2020 Gastrointestinal hemorrhage associated with ano*11/22/2020 06/26/2023 Iron deficiency anemia due to chronic blood los*11/22/2020 Pinched nerve in neck [G58.9] 01/30/2021 06/05/2021 Simple chronic bronchitis (HCC) [J41.0] 03/26/2021 Nonrheumatic tricuspid valve regurgitation [I36*03/26/2021 Congestive heart failure, unspecified HF chroni*05/12/2023 Acute respiratory failure with hypoxia and hype*05/12/2023 03/17/2024 Pulmonary hypertension due to lung diseases and*06/23/2023 Acquired hypothyroidism [E03.9] 01/23/2022 Rheumatoid arthritis with positive rheumatoid f*09/17/2023 PAH (pulmonary artery hypertension) (HCC) [I27.*07/01/2024 Encounter Status:Closed by Antonia EMERSON on 10/07/24 [place] Observed: 10/06/2024 12:00 AM Status: COMPLETED Source: [facility] Telephone (INTMWS) MALU KITCHEN ([id number]) 1945 F Vendor Date Time Provider Department 10/06/24 ANDRA RODRIGUES INTMWS During your visit today, we recorded the following information about you: Deisy Padron LPN 10/06/2024 3:14 PM Signed Arcelia from [facility] Home Health calling patient was discharged 10/04 from [facility], was there with sepsis, pneumonia was on ventilator. She has home oxygen at 4 liters her lungs sounds are diminished, coughing bloody tinged sputum, irritation from being on the vent. Patient is taking Cefdinir and mucinex. Plan of care for halfway 2 visits weekly for 2 weeks, then 1 visit weekly for 2 weeks working on pneumonia education and monitoring. Patient will be having PT/OT doing eval with her soon. Shefali Rich APRN.CNP 10/06/2024 4:42 PM Signed OK with plan JAQUELIN Bryan Jane, MA 10/06/2024 5:07 PM Signed Arcelia notified, states patient was given zofran in hospital and only has one pill left. Asking if provider is willing to refill? Patient was unaware they had Hospital follow up appointment today and will call and reschedule missed appointment. Shefali Rich APRN.CNP 10/06/2024 6:36 PM Signed I sent it in. Her insurance requesting a prior auth so not sure it will go through. Thank you Shefali Rich APRN.TRAINING LEAD Allergies As of Date: 10/06/2024 Noted Allergy Reaction ADHESIVE TAPE (ROSINS) 08/22/2005 2 - Rash IBUPROFEN 06/06/2014 Comments: Pt on coumadin VICODIN (HYDROCODONE-ACETAMINOPHE*12/15/2014 8 - GI Upset Date Reviewed: 09/23/2024 Reviewed by: Shefali Rich APRN.KINGA - Fully Assessed Reason for Visit: nursing home plan of care [Other] Primary Visit Diagnosis:Nausea [R11.0] Order(s):ondansetron orally disintegrating (ZOFRAN ODT) 4 mg disintegrating tabletTake 1 tablet by mouth every 6 hours as needed for nausea/vomiting.Disp: 15 tabletRfl: 0 Prescriptions as of 10/22/2024 - docusate sodium (COLACE) 100 mg capsule Take 1 capsule by mouth two times a day as needed for constipation. - cefdinir (OMNICEF) 300 mg capsule Take 1 capsule by mouth two times a day for 10 days. - warfarin (COUMADIN) 1 mg tablet Take 1 tablet by mouth once daily. Please take daily as directed - ondansetron orally disintegrating (ZOFRAN ODT) 4 mg disintegrating tablet Take 1 tablet by mouth every 6 hours as needed for nausea/vomiting. - empagliflozin (JARDIANCE) 10 mg tablet Take 1 tablet by mouth daily with breakfast. - HYDROcodone-acetaminophen (NORCO) 5-325 mg per tablet Take 1 tablet by mouth every 8 hours as needed for pain for up to 30 days. - metOLazone (ZAROXOLYN) 2.5 mg tablet Take 1 tablet by mouth every other day. - dilTIAZem CD (CARDIZEM CD) 180 mg 24 hr capsule Take 1 capsule by mouth once daily. - potassium chloride SR (MICRO-K) 10 mEq CR capsule Take 2 capsules by mouth two times a day. - leflunomide (ARAVA) 10 mg tablet Take 1 tablet by mouth once daily. - levothyroxine (SYNTHROID) 25 mcg tablet Take 1 tablet by mouth daily before breakfast. - gabapentin (NEURONTIN) 300 mg capsule Take 1 capsule by mouth two times a day. - pantoprazole DR (PROTONIX) 40 mg tablet Take 1 tablet by mouth daily before breakfast. Take on empty stomach, 1/2 hr before meal. - furosemide (LASIX) 40 mg tablet Take 1 tablet by mouth once daily. Takes twice daily if with increased edema - atenolol (TENORMIN) 25 mg tablet Take 1 tablet by mouth two times a day. - TRELEGY ELLIPTA 100-62.5-25 mcg inhalation powder Inhale 1 Puff as instructed once daily. - Magnesium 30 mg tablet Take 1 tablet by mouth twice daily. - calcium carbonate/vitamin d3(CALCIUM 600 + D(3) 600 MG (1,500)-200 UNIT TAB) Take one(1) tablet twice daily BY MOUTH. - DAILY MULTIPLE TAB Take one(1) tablet daily BY MOUTH. Problem List As Of Date 10/06/2024 Noted Resolved Osteoarthrosis, unspecified whether generalized* 03/11/2017 AMNESIA (RETROGRADE) TRANSIENT GLOBAL [G45.4] 07/15/2007 06/26/2023 HIGH BLOOD PRESSURE-NO HYPERTENSN [R03.0] 07/15/2007 03/11/2017 INSOMNIA [G47.00] 07/15/2007 TOBACCO USE - PERSONAL HX [Z87.891] 07/15/2007 03/11/2017 Hyperlipidemia [E78.5] 08/20/2007 TIA (transient ischemic attack) [G45.9] 12/16/2007 06/26/2023 Acute gastritis with hemorrhage [K29.01] 10/13/2008 03/11/2017 Acute gastritis without mention of hemorrhage [*10/13/2008 03/11/2017 Hyperlipemia [E78.5] 06/16/2009 02/02/2016 Atrial Fibrillation [I48.91] 06/16/2009 12/16/2014 Sicca syndrome (HCC) [M35.00] 03/11/2017 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] 03/11/2017 Generalized Osteoarthrosis, Involving Hand [M15* Diarrhea [R19.7] 10/03/2009 12/16/2014 Diverticulosis of colon (without mention of hem*10/03/2009 06/26/2023 Internal hemorrhoids without mention of complic*10/03/2009 03/11/2017 Mitral regurgitation [I34.0] 09/02/2011 Right wrist pain [M25.531] 12/15/2012 03/11/2017 Uterovaginal prolapse [N81.4] 07/29/2013 03/11/2017 Cystocele [[id number]] 07/29/2013 06/26/2023 Rotator cuff tear arthropathy of both shoulders*08/24/2013 PMB (postmenopausal bleeding) [N95.0] 09/07/2013 03/11/2017 Atrial fibrillation (HCC) [I48.91] 12/16/2014 Psoas tendinitis of right side [M76.11] 12/05/2015 03/11/2017 Gastroesophageal reflux disease without esophag*03/11/2016 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 *07/08/2016 Bilateral hip pain [M25.551, M25.552] 03/11/2017 S/P lumbar fusion [Z98.1] 06/02/2017 Abrasion of left forearm [S50.812A] 06/26/2017 03/18/2023 Laceration of left forearm [S51.812A] 06/26/2017 03/18/2023 Contusion of left hand [S60.222A] 06/26/2017 03/18/2023 Hematoma of left hip [S70.02XA] 06/26/2017 06/26/2023 Contusion of left knee [S80.02XA] 06/26/2017 03/18/2023 Primary osteoarthritis involving multiple joint*03/24/2018 Centrilobular emphysema (HCC) [J43.2] 04/13/2020 Gastrointestinal hemorrhage associated with ano*11/22/2020 06/26/2023 Iron deficiency anemia due to chronic blood los*11/22/2020 Pinched nerve in neck [G58.9] 01/30/2021 06/05/2021 Simple chronic bronchitis (HCC) [J41.0] 03/26/2021 Nonrheumatic tricuspid valve regurgitation [I36*03/26/2021 Congestive heart failure, unspecified HF chroni*05/12/2023 Acute respiratory failure with hypoxia and hype*05/12/2023 03/17/2024 Pulmonary hypertension due to lung diseases and*06/23/2023 Acquired hypothyroidism [E03.9] 01/23/2022 Rheumatoid arthritis with positive rheumatoid f*09/17/2023 PAH (pulmonary artery hypertension) ([facility]) [I27.*07/01/2024 Prescriptions ordered this encounter Disp Refills Start End ONDANSETRON 4 MG DISINTEGRATING TABL* 15 t* 0 10/06/2024 Route: ORAL Sig: Take 1 tablet by mouth every 6 hours as needed for nausea/vomiting. Encounter Status:Closed by DEISY PADRON on 10/22/24 [place] Observed: 10/05/2024 12:00 AM Status: COMPLETED Source: [facility] Telephone (INTMWS) MALU KITCHEN ([id number]) 1945 F Vendor Date Time Provider Department 10/05/24 ANDRA RODRIGUES INTMWS During your visit today, we recorded the following information about you: Sonia Perez RN 10/05/2024 12:21 PM Signed Phuong from [facility] calls and states that patient was discharged from [facility] PCU on 10/03/2024 with the diagnosis of sepsis and pneumonia. Phuong asking if provider willing to follow patient with orders for halfway, physical occupational, and occupational therapy. If agreeable please give Phuong a call back . Thank you, MOSHE Rios Joy, APRN.TRAINING LEAD 10/06/2024 6:41 PM Signed Pcp willing to follow patient and ok with orders Thank you Shefali Rich APRN.TRAINING LEAD Allergies As of Date: 10/05/2024 Noted Allergy Reaction ADHESIVE TAPE (ROSINS) 08/22/2005 2 - Rash IBUPROFEN 06/06/2014 Comments: Pt on coumadin VICODIN (HYDROCODONE-ACETAMINOPHE*12/15/2014 8 - GI Upset Date Reviewed: 09/23/2024 Reviewed by: Shefali Rich APRN.TRAINING LEAD - Fully Assessed Reason for Visit: Home Health Orders [Other] Prescriptions as of 10/12/2024 - warfarin (COUMADIN) 1 mg tablet Take 1 tablet by mouth once daily. Please take daily as directed - ondansetron orally disintegrating (ZOFRAN ODT) 4 mg disintegrating tablet Take 1 tablet by mouth every 6 hours as needed for nausea/vomiting. - empagliflozin (JARDIANCE) 10 mg tablet Take 1 tablet by mouth daily with breakfast. - HYDROcodone-acetaminophen (NORCO) 5-325 mg per tablet Take 1 tablet by mouth every 8 hours as needed for pain for up to 30 days. - metOLazone (ZAROXOLYN) 2.5 mg tablet Take 1 tablet by mouth every other day. - dilTIAZem CD (CARDIZEM CD) 180 mg 24 hr capsule Take 1 capsule by mouth once daily. - potassium chloride SR (MICRO-K) 10 mEq CR capsule Take 2 capsules by mouth two times a day. - leflunomide (ARAVA) 10 mg tablet Take 1 tablet by mouth once daily. - levothyroxine (SYNTHROID) 25 mcg tablet Take 1 tablet by mouth daily before breakfast. - gabapentin (NEURONTIN) 300 mg capsule Take 1 capsule by mouth two times a day. - pantoprazole DR (PROTONIX) 40 mg tablet Take 1 tablet by mouth daily before breakfast. Take on empty stomach, 1/2 hr before meal. - furosemide (LASIX) 40 mg tablet Take 1 tablet by mouth once daily. Takes twice daily if with increased edema - atenolol (TENORMIN) 25 mg tablet Take 1 tablet by mouth two times a day. - TRELEGY ELLIPTA 100-62.5-25 mcg inhalation powder Inhale 1 Puff as instructed once daily. - Magnesium 30 mg tablet Take 1 tablet by mouth twice daily. - calcium carbonate/vitamin d3(CALCIUM 600 + D(3) 600 MG (1,500)-200 UNIT TAB) Take one(1) tablet twice daily BY MOUTH. - DAILY MULTIPLE TAB Take one(1) tablet daily BY MOUTH. Problem List As Of Date 10/05/2024 Noted Resolved Osteoarthrosis, unspecified whether generalized* 03/11/2017 AMNESIA (RETROGRADE) TRANSIENT GLOBAL [G45.4] 07/15/2007 06/26/2023 HIGH BLOOD PRESSURE-NO HYPERTENSN [R03.0] 07/15/2007 03/11/2017 INSOMNIA [G47.00] 07/15/2007 TOBACCO USE - PERSONAL HX [Z87.891] 07/15/2007 03/11/2017 Hyperlipidemia [E78.5] 08/20/2007 TIA (transient ischemic attack) [G45.9] 12/16/2007 06/26/2023 Acute gastritis with hemorrhage [K29.01] 10/13/2008 03/11/2017 Acute gastritis without mention of hemorrhage [*10/13/2008 03/11/2017 Hyperlipemia [E78.5] 06/16/2009 02/02/2016 Atrial Fibrillation [I48.91] 06/16/2009 12/16/2014 Sicca syndrome (HCC) [M35.00] 03/11/2017 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] 03/11/2017 Generalized Osteoarthrosis, Involving Hand [M15* Diarrhea [R19.7] 10/03/2009 12/16/2014 Diverticulosis of colon (without mention of hem*10/03/2009 06/26/2023 Internal hemorrhoids without mention of complic*10/03/2009 03/11/2017 Mitral regurgitation [I34.0] 09/02/2011 Right wrist pain [M25.531] 12/15/2012 03/11/2017 Uterovaginal prolapse [N81.4] 07/29/2013 03/11/2017 Cystocele [ABO2862] 07/29/2013 06/26/2023 Rotator cuff tear arthropathy of both shoulders*08/24/2013 PMB (postmenopausal bleeding) [N95.0] 09/07/2013 03/11/2017 Atrial fibrillation (HCC) [I48.91] 12/16/2014 Psoas tendinitis of right side [M76.11] 12/05/2015 03/11/2017 Gastroesophageal reflux disease without esophag*03/11/2016 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 *07/08/2016 Bilateral hip pain [M25.551, M25.552] 03/11/2017 S/P lumbar fusion [Z98.1] 06/02/2017 Abrasion of left forearm [S50.812A] 06/26/2017 03/18/2023 Laceration of left forearm [S51.812A] 06/26/2017 03/18/2023 Contusion of left hand [S60.222A] 06/26/2017 03/18/2023 Hematoma of left hip [S70.02XA] 06/26/2017 06/26/2023 Contusion of left knee [S80.02XA] 06/26/2017 03/18/2023 Primary osteoarthritis involving multiple joint*03/24/2018 Centrilobular emphysema (HCC) [J43.2] 04/13/2020 Gastrointestinal hemorrhage associated with ano*11/22/2020 06/26/2023 Iron deficiency anemia due to chronic blood los*11/22/2020 Pinched nerve in neck [G58.9] 01/30/2021 06/05/2021 Simple chronic bronchitis (HCC) [J41.0] 03/26/2021 Nonrheumatic tricuspid valve regurgitation [I36*03/26/2021 Congestive heart failure, unspecified HF chroni*05/12/2023 Acute respiratory failure with hypoxia and hype*05/12/2023 03/17/2024 Pulmonary hypertension due to lung diseases and*06/23/2023 Acquired hypothyroidism [E03.9] 01/23/2022 Rheumatoid arthritis with positive rheumatoid f*09/17/2023 PAH (pulmonary artery hypertension) (HCC) [I27.*07/01/2024 Encounter Status:Closed by SONIA PEREZ on 10/12/24 [place] Observed: 09/27/2024 12:00 AM Status: COMPLETED Source: [facility] MALU IKTCHEN ([id number]) 1945 F Vendor Date Time Provider Department 09/27/24 SHEFALI RICH During your visit today, we recorded the following information about you: Shefali Rich APRN.CNP 09/27/2024 2:00 PM Signed Spoke with Komal Pereira last Friday late afternoon . Reported they felt patient ok for surgery from cardiac standpoint but wanting her to be seen by pulmonology due to her pulmonary hypertension. Recent EKG reviewed. Please fax EKG to surgeons office for their record and let them know this information along with patient so she can call her project management it specialist to schedule and appointment. Thank you Shefali Rich APRN.TRAINING LEAD Allergies As of Date: 09/27/2024 Noted Allergy Reaction ADHESIVE TAPE (ROSINS) 08/22/2005 2 - Rash IBUPROFEN 06/06/2014 Comments: Pt on coumadin VICODIN (HYDROCODONE-ACETAMINOPHE*12/15/2014 8 - GI Upset Date Reviewed: 09/23/2024 Reviewed by: Shefali Rich APRN.TRAINING LEAD - Fully Assessed Reason for Visit: Orders [681] Prescriptions as of 10/04/2024 - empagliflozin (JARDIANCE) 10 mg tablet Take 1 tablet by mouth daily with breakfast. - HYDROcodone-acetaminophen (NORCO) 5-325 mg per tablet Take 1 tablet by mouth every 8 hours as needed for pain for up to 30 days. - metOLazone (ZAROXOLYN) 2.5 mg tablet Take 1 tablet by mouth every other day. - dilTIAZem CD (CARDIZEM CD) 180 mg 24 hr capsule Take 1 capsule by mouth once daily. - potassium chloride SR (MICRO-K) 10 mEq CR capsule Take 2 capsules by mouth two times a day. - leflunomide (ARAVA) 10 mg tablet Take 1 tablet by mouth once daily. - levothyroxine (SYNTHROID) 25 mcg tablet Take 1 tablet by mouth daily before breakfast. - gabapentin (NEURONTIN) 300 mg capsule Take 1 capsule by mouth two times a day. - pantoprazole DR (PROTONIX) 40 mg tablet Take 1 tablet by mouth daily before breakfast. Take on empty stomach, 1/2 hr before meal. - warfarin (COUMADIN) 1 mg tablet Take 1 tablet by mouth once daily. Please take daily as directed - furosemide (LASIX) 40 mg tablet Take 1 tablet by mouth once daily. Takes twice daily if with increased edema - atenolol (TENORMIN) 25 mg tablet Take 1 tablet by mouth two times a day. - TRELEGY ELLIPTA 100-62.5-25 mcg inhalation powder Inhale 1 Puff as instructed once daily. - Magnesium 30 mg tablet Take 1 tablet by mouth twice daily. - calcium carbonate/vitamin d3(CALCIUM 600 + D(3) 600 MG (1,500)-200 UNIT TAB) Take one(1) tablet twice daily BY MOUTH. - DAILY MULTIPLE TAB Take one(1) tablet daily BY MOUTH. Problem List As Of Date 09/27/2024 Noted Resolved Osteoarthrosis, unspecified whether generalized* 03/11/2017 AMNESIA (RETROGRADE) TRANSIENT GLOBAL [G45.4] 07/15/2007 06/26/2023 HIGH BLOOD PRESSURE-NO HYPERTENSN [R03.0] 07/15/2007 03/11/2017 INSOMNIA [G47.00] 07/15/2007 TOBACCO USE - PERSONAL HX [Z87.891] 07/15/2007 03/11/2017 Hyperlipidemia [E78.5] 08/20/2007 TIA (transient ischemic attack) [G45.9] 12/16/2007 06/26/2023 Acute gastritis with hemorrhage [K29.01] 10/13/2008 03/11/2017 Acute gastritis without mention of hemorrhage [*10/13/2008 03/11/2017 Hyperlipemia [E78.5] 06/16/2009 02/02/2016 Atrial Fibrillation [I48.91] 06/16/2009 12/16/2014 Sicca syndrome (HCC) [M35.00] 03/11/2017 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] 03/11/2017 Generalized Osteoarthrosis, Involving Hand [M15* Diarrhea [R19.7] 10/03/2009 12/16/2014 Diverticulosis of colon (without mention of hem*10/03/2009 06/26/2023 Internal hemorrhoids without mention of complic*10/03/2009 03/11/2017 Mitral regurgitation [I34.0] 09/02/2011 Right wrist pain [M25.531] 12/15/2012 03/11/2017 Uterovaginal prolapse [N81.4] 07/29/2013 03/11/2017 Cystocele [PYQ1794] 07/29/2013 06/26/2023 Rotator cuff tear arthropathy of both shoulders*08/24/2013 PMB (postmenopausal bleeding) [N95.0] 09/07/2013 03/11/2017 Atrial fibrillation (HCC) [I48.91] 12/16/2014 Psoas tendinitis of right side [M76.11] 12/05/2015 03/11/2017 Gastroesophageal reflux disease without esophag*03/11/2016 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 *07/08/2016 Bilateral hip pain [M25.551, M25.552] 03/11/2017 S/P lumbar fusion [Z98.1] 06/02/2017 Abrasion of left forearm [S50.812A] 06/26/2017 03/18/2023 Laceration of left forearm [S51.812A] 06/26/2017 03/18/2023 Contusion of left hand [S60.222A] 06/26/2017 03/18/2023 Hematoma of left hip [S70.02XA] 06/26/2017 06/26/2023 Contusion of left knee [S80.02XA] 06/26/2017 03/18/2023 Primary osteoarthritis involving multiple joint*03/24/2018 Centrilobular emphysema (HCC) [J43.2] 04/13/2020 Gastrointestinal hemorrhage associated with ano*11/22/2020 06/26/2023 Iron deficiency anemia due to chronic blood los*11/22/2020 Pinched nerve in neck [G58.9] 01/30/2021 06/05/2021 Simple chronic bronchitis (HCC) [J41.0] 03/26/2021 Nonrheumatic tricuspid valve regurgitation [I36*03/26/2021 Congestive heart failure, unspecified HF chroni*05/12/2023 Acute respiratory failure with hypoxia and hype*05/12/2023 03/17/2024 Pulmonary hypertension due to lung diseases and*06/23/2023 Acquired hypothyroidism [E03.9] 01/23/2022 Rheumatoid arthritis with positive rheumatoid f*09/17/2023 PAH (pulmonary artery hypertension) (HCC) [I27.*07/01/2024 Encounter Status:Closed by TAMMI DOTSON on 10/04/24 [place]GR[place] Observed: 09/23/2024 11:30 AM Status: COMPLETED Source: [facility] ID: [id number] Author: RAYMON BLACK RT(R) Service: Radiology Author Type: Technologist Type: Progress Notes Filed: 09/23/2024 11:18 Note Text: Radiology Service Progress Note PATIENT NAME: Malu Kitchen DATE OF SERVICE: September 23, 2024 TIME: 11:12 AM PATIENT IDENTITY VERIFICATION COMPLETED USING TWO (2) IDENTIFIERS: Name and Date of confirmed by patient verbally. FALL SCREENING: Has the patient had 2 falls in the last year or 1 fall with injury or currently using an Ambulatory Assistive Device (Walker, Cane, Wheelchair, Crutches, etc.)? Yes, Patient High Risk for Falls What interventions were put in place to prevent falls during this visit? Offered Assistance with Transfers/Clothing and Instructed Patient to Remain Seated (Not on Exam Table) Until Exam PATIENT GENDER DATA: Assigned female at . status: : No status: NO. PATIENT RELEVANT IMPLANT DATA REVIEWED: Not Applicable PATIENT PRESENTS WITH AN IMPLANTABLE OR ATTACHED MINE EXPERT: No RADIOLOGY DEPARTMENT: General X-ray: Exam(s) Completed: Chest X-Ray PERIPHERAL IV DATA: Not applicable SIGNED BY: RT Masha(R) September 23, 2024 11:12 AM XR CHEST 2V FRONTAL/LAT Observed: 2024 11:18 AM Status: F Source: [facility] * * *Final Report* * * DATE OF EXAM: Sep 23 2024 11:18AM WOX [id number] - XR CHEST 2V FRONTAL/LAT / PROCEDURE REASON: Preop exam for internal medicine * * * * Physician Interpretation * * * * EXAMINATION: CHEST RADIOGRAPH (2 VIEW FRONTAL and LATERAL) CLINICAL HISTORY: Preop exam for internal medicine MQ: [id number] EXAM DATE/TIME: 09/23/2024 11:18 AM COMPARISON: 07/31/2023 RESULT: Lines, tubes, and devices: None. Lungs and pleura: No consolidation. No lung mass. No pleural effusion. No pneumothorax. Cardiomediastinal silhouette: Mildly enlarged cardiomediastinal silhouette. Stable Bones and soft tissues: Partially visualized bilateral shoulder prostheses. Neurostimulator wires overlie the mid dorsal spine. Stable mild wedging of mid thoracic vertebral body IMPRESSION: No acute radiographic abnormality. Childcare Director: JUAN F Transcribe Date/Time: Sep 23 2024 1:25P Dictated by : JYOTI VASQUEZ MD This examination was interpreted and the report reviewed and electronically signed by: JYOTI VASQUEZ MD on Sep 23 2024 1:27PM EST [id number] COMP METAB 2000 PNL SERPL Collected: 11:04 AM Status: F Source: [facility] Order Comment: Specimen Type : BLOOD SPECIMEN Ordering Facility: [facility] Address: [facility] [place] [address] TYPE CODE TESTS RESULT OUT OF RANGE REFERENCE UNITS LAB 2885-2(LOINC) Prot SerPl-mCnc 7.1 6.3-8.0 g/dL LAB 1751-7(LOINC) Albumin SerPl-mCnc 4.1 3.9-4.9 g/dL LAB 37008-9(LOINC) Calcium SerPl-mCnc 10.1 8.5-10.2 mg/dL LAB 1975-2(LOINC) Bilirub SerPl-mCnc 0.4 0.2-1.3 mg/dL LAB 6768-6(LOINC) ALP SerPl-cCnc 92 34-123 U/L LAB 1920-8(LOINC) AST SerPl-cCnc 25 13-35 U/L LAB 1742-6(LOINC) ALT SerPl-cCnc 17 7-38 U/L LAB 2345-7(LOINC) Glucose SerPl-mCnc 103 High 74-99 mg/dL Result Comment: The [place] Diabetes Association (ADA) provides guidance for cutoff values for fasting glucose and random glucose. The ADA defines fasting as no caloric intake for at least 8 hours. Fasting plasma glucose results between 100 to 125 mg/dL indicate increased risk for diabetes (prediabetes). Fasting plasma glucose results greater than or equal to 126 mg/dL meet the criteria for diagnosis of diabetes. In the absence of unequivocal hyperglycemia, results should be confirmed by repeat testing. In a patient with classic symptoms of hyperglycemia or hyperglycemic crisis, random plasma glucose results greater than or equal to 200 mg/dL meet the criteria for diagnosis of diabetes. Reference: Standards of Medical Care in Diabetes 2016, [place] Diabetes Association. Diabetes Care. 2016.39(Suppl 1). LAB 3094-0(LOINC) BUN SerPl-mCnc 32 High 7-21 mg/ dL LAB 2160-0(LOINC) Creat SerPl-mCnc 0.97 High 0.58-0.96 mg/dL LAB 2951-2(LOINC) Sodium SerPl-sCnc 138 136-144 mmol/L LAB 2823-3(LOINC) Potassium SerPl-sCnc 4.1 3.7-5.1 mmol/L LAB 2075-0(LOINC) Chloride SerPl-sCnc 95 Low 98-107 mmol/L LAB 202-9(LOINC) CO2 SerPl-sCnc 30 22-30 mmo l/L LAB 48777-6(LOINC) Anion Gap SerPl-sCnc 13 8-15 mmol/L LAB 84997-1(LOINC) Creatinine + eGFR Pnl SerPlBld 60 >=60 mL/min/1 .73m??? Result Comment: Estimated Gl omerular Filtration Rate (eGFR) is calculated using the 2020 CKD-EPI creatinine equation. This equation utilizes serum creatinine, sex, and age as parameters. The creatinine assay has traceable calibration to isotope dilution-mass spectrometry. Refer to KDIGO guidelines for clinical interpretation. In patients with unstable renal function, e.g. those with acute kidney injury, the eGFR may not accurately reflect actual GFR. Performed By: #### 37027-9 # ### [facility] CLIA [id number] [address] [place] [address] [place] CBC W AUTO DIFF BLD Collected: 09/23/2024 11:04 AM S tatus: F Source: [facility] Order Comment: Specimen Type : BLOOD SPECIMEN Ordering Facility: [facility] Address: [address] [place] [address] TYPE CODE TESTS RESULT OUT OF RANGE REFERENCE UNITS LAB 6690-2(LOINC) WBC # Bld Auto 8.27 3.70-11.00 k/uL LAB 789-8(LOINC) RBC # Bld Auto 4.23 3.90-5.20 m/ uL LAB 718-7(LOINC) Hgb Bld-mCnc 12.8 11.5-15.5 g/dL LAB 4544-3(LOINC) Hct VFr Bld Auto 39.7 36.0-46.0 % LAB 787-2([facility]) MCV RBC Auto 93.9 80.0-100.0 fL LAB 785-6([facility]) MCH RBC Qn Auto 30.3 26.0-34.0 p g LAB 786-4([facility]) MCHC RBC Auto-mCnc 32.2 30.5-36.0 g/dL LAB 57390-0([facility]) RDW RBC-Rto 12.7 11.5-15.0 % LAB 777-3([facility]) Platelet # Bld Auto 335 150-400 k/uL LAB 63249-2([facility]) PMV Bld Auto 10.8 9.0-12.7 fL LAB 770-8([facility]) Neutrophils/leuk NFr Bld Auto 49.0 % LAB 751-8([facility]) Neutrophils # Bld Auto 4.06 1.45-7.50 k/uL LAB 736-9([facility]) Lymphocytes/leuk NFr Bld Auto 30.5 % LAB 731-0([facility]) Lymphocytes # Bld Auto 2.52 1.00-4.00 k/uL LAB 5905-5([facility]) Monocytes/leuk NFr Bld Auto 18.4 % LAB 742-7([facility]) Monocytes # Bld Auto 1.52 High <0.87 k/uL LAB 713-8([facility]) Eosinophil/leuk NFr Bld Auto 1.5 % LAB 711-2([facility]) Eosinophil # Bld Auto 0.12 <0.46 k/uL LAB 706-2([facility]) Basophils/leuk NFr Bld Auto 0.4 % LAB 704-7([facility]) Basophils # Bld Auto 0.03 <0.11 k/uL LAB 07482-7([facility]) Imm Granulocytes/shraddha k NFr Bld Auto 0.2 % LAB 12256-9([facility]) Imm Granulocytes # Bld Auto <0.03 <0.10 k/uL LAB 03968-1([facility]) nRBC/100 WBC Bld-Rto 0.0 /100 WBC LAB 771-6([facility]) nRBC # Bld Auto <0.01 <0.01 k/u L LAB 03665-8([facility]) Differential method Bld Auto Performed By: #### 08436-7 # ### [facility] CLIA [id number] [address] [place] [address] [place] DEPRECATED HGB A1C BLD Collected: 09/23 11:04 AM Status: F Source: [facility] Order Comment: Specimen Type : BLOOD SPECIMEN Ordering Facility: [facility] Address: [address] [place] [address] TYPE CODE TESTS RESULT OUT OF RANGE REFERENCE UNITS LAB 4548-4([facility]) HbA1c MFr Bld 5.6 4.3-5.6 % Result Comment: [place] Rhonda betes Association guidelines indicate that patients with HgbA1c in the range 5.7-6.4% are at increased risk for development of diabetes, and intervention by lifestyle modification may be beneficial. HgbA1c greater or equal to 6.5% is considered diagnostic of diabetes. LAB 99632-8(INC) Est. average glucose Bld gHb Est-mCnc 114 mg/dL Result Comment: eAG: (Estima rosario average glucose) is a calculated value from HgbA1c and is community health representative of the average blood glucose level in the last 2-3 month period. Performed By: #### 91043-8 # ### [facility] CLIA [id number] [address] [place] [address] [place] Observed: 09/23/2024 10:11 AM Status: COMPLETED Source: [facility] HNO ID: [id number] Author: SHEFALI RICH APRN.TRAINING LEAD Service: ? Author Type: Nurse Practitioner Type: Progress Notes Filed: 09/24/2024 12:18 Note Text: CC: Patient presents with: Pre-Op Exam: Pre- Op clearance L foot Sx HPI Malu Kitchen is a 79 year old female who presents today for pre-op evaluation. Surgical Procedure: metatarsal head resection Date of Procedure: 10/01/24 Surgeon: Dr. Hartman PAT date: spinal block with twilight HTN, A-fib, MR, PAH, CHF: Ms. Kitchen denies headache, chest pain, palpitations, increase in chronic dyspnea, or increase in small amount of chronic peripheral edema. Patient denies any side effects of her medication(s) and is compliant with their regimen. She does check BP's away from this office with average BP's in the 110s/60s range. Malu denies regular aerobic exercise. She watches her diet for sodium, low fat and low cholesterol most of the time. Follows with [facility]. Last Seen 2 weeks ago. Per patient for routine follow up without concern. Is on coumadin for DVT prophylaxis. Last 3 Encounter BP Readings: Date: BP: 09/23/2024 108/68 06/22/2024 122/70 06/07/2024 116/65 Emphysema: Follows With Dr. Chao at [facility]. Has yearly follow ups with next one in a month. Has not needed her albuterol inhaler in over 6 months. Last need for steroid was when she was hospitalized for pneumonia almost 5 months ago. Wears 4L of Oxygen at night after having a sleep study done early last year showing her dropping into the 60s when she slept. Denies cough, wheezing, chest tightness, fever, or chills. Hypothyroidism: Taking medication as ordered on an empty stomach. Denies any abnormal changes in weight or energy. RA: Sees Dr. Núñez. Gets infusion of leflunomide along with daily tablet as ordered by Dr. Núñez. Still with some joint symptoms even with this treatment. Patient on jardiance. Has history of CKD with large cardiac history. Has prediabetes in her history of diagnoses but no HgbA1c available to review. METS: Walk indoors, such as around the house (1.75 METs): YES Do light work around the house, such as dusting or washing dishes (2.70 METs): YES Take care of self; that is eating, dressing, bathing, using the toilet (2.75 METs): YES Walk a block or two on level ground (2.75 METs): YES Do moderate work around the house such as vacuuming, sweeping floors, or carrying in groceries (3.50 METs): YES Do yardwork, such as raking leaves, weeding,or pushing a power mower (4.50 METs): YES Climb a flight of stairs or walk up a hill (5.50 METs): YES Participate in moderate recreational activities, such as golf, bowling, dancing, doubles tennis, or throwing a baseball or football (6.00 METs): does not perform these activities Participate in strenuous sport, such as swimming, singles tennis, football, basketball, or skiing (7.50 METs): does not perform these activities Do heavy work around the house, such as scrubbing floors, lifting or moving heavy furniture (8.00 METs): does not perform these activities Run a short distance (8.00 METs): does not perform these activities Total: 5.5 Patient denies any chest pain or undue shortness of breath with the above physical activity. 1. Diabetes: None 2. Hypertension requiring medication: Yes 3. Congestive Heart Failure: Yes 4. Current Smoker within 1 Year: No 5. History of COPD: Yes 6. History of MARKELL: No - low oxygen saturation with sleep 7. Dialysis: No REVIEW OF SYSTEMS General: no fevers, no chills, no night sweats, no recurrent infections, no change in appetite, no change in energy, and no significant changes in weight HEENT: no frequent or significant headaches, no changes in hearing, no visual changes, no nose bleeds Neck: no lumps, no pain , and no swelling GI: No nausea, vomiting, or diarrhea : No history of dysuria, frequency or incontinence Neurologic: No headache, weakness, dizziness, memory loss, syncope. PAST MEDICAL HISTORY Diagnosis Date Acquired hypothyroidism 01/23/2022 Acute gastritis without mention of hemorrhage Acute, but ill-defined, cerebrovascular disease AMNESIA (RETROGRADE) TRANSIENT GLOBAL 07/15/2007 This was along with the TIA that she had. Atrial fibrillation (HCC) Basal cell carcinoma 12/16/2023 scalp Bleeding gastrointestinal 09/2020 Centrilobular emphysema (HCC) 04/13/2020 Patient had PFTs in 2019 and was found to have moderately severe large air way vent defect, which was irreversible. This was associated with trapping of air And mild reduction in the diffusion capacity. She has more that 60 pack years smoking, but stopped in 2000 She is on Anoro ellipta and is doing well, good exercise tolerance does the bike mostly. Does good exercise at work, around 18,000 Complete rupture of rotator cuff 2006 Congestive heart failure, unspecified HF chronicity, unspecified heart failure type (HCC) 05/12/2023 Cystocele 07/29/2013 Diarrhea Diverticulosis of colon (without mention of hemorrhage) Gastrointestinal hemorrhage associated with anorectal source 11/22/2020 Was admitted in September 2020 with the red blood per rectum. At that time INR was 1.7 as she is on Coumadin, her hemoglobin was stable so no blood transfusion was required. She had a CT scan and contrast and was given IV fluids after which she developed some shortness of breath and was given Lasix and she was sent home the next day after an echo. 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 Chao at [facility] [place]. She is on trilogy Ellipta. She has quit smoking in the past we encouraged her to continue to quit smoking. Stroke (HCC) x 2 last stroke 02/14/2016 TIA (transient ischemic attack) 12/16/2007 Unspecified inflammatory polyarthropathy PAST SURGICAL HISTORY Procedure Laterality Date ARTHRP ACETBLR/PROX FEM PROSTC AGRFT/ALGRFT 02/20/2015 Hip replacement, total COLONOSCOPY GEN ANES 11/22/2020 COLONOSCOPY W/BIOPSY SINGLE/MULTIPLE 10/03/2009 EGD 11/22/2020 EGD TRANSORAL BIOPSY SINGLE/MULTIPLE 10/13/2008 minimal gastritis HEART CATHETERIZATION 2009 OPEN REPAIR OF ROTATOR CUFF ACUTE 1996, 2001,2002 Rotator cuff repair-right shoulder OPEN REPAIR OF ROTATOR CUFF ACUTE 2006 Left PAST SURGICAL HISTORY OF 1998 L5-DIONICIO Spinal Fusion PAST SURGICAL HISTORY OF right foot x2, spur, neuroma PAST SURGICAL HISTORY OF 1967 cyst removed right breast PAST SURGICAL HISTORY OF 05/05/2014 Anterior colporrhaphy, Vaginal vault suspension per SUPeR trial ; Cystourethroscopy PAST SURGICAL HISTORY OF 10/2013 left shoulder replacement PAST SURGICAL HISTORY OF Right 09/21/2018 right reverse total shoulder arthroplasty [facility] REVISE MEDIAN N/CARPAL TUNNEL SURG Right 01/15/2024 Right Carpal tunnel release WRIST SURGERY HX Left 2018 removed 3 bones in wrist ALLERGIES Adhesive Tape (Rosins), Ibuprofen, and Vicodin [Hydrocodone-Acetaminophen] MEDICATIONS metOLazone (ZAROXOLYN) 2.5 mg tablet Take 1 tablet by mouth every other day. HYDROcodone-acetaminophen (NORCO) 5-325 mg per tablet Take 1 tablet by mouth every 8 hours as needed for pain for up to 30 days. dilTIAZem CD (CARDIZEM CD) 180 mg 24 hr capsule Take 1 capsule by mouth once daily. potassium chloride SR (MICRO-K) 10 mEq CR capsule Take 2 capsules by mouth two times a day. predniSONE (DELTASONE) 5 mg tablet Take 5 mg by mouth once daily. Dr. Núñez leflunomide (ARAVA) 10 mg tablet Take 1 tablet by mouth once daily. levothyroxine (SYNTHROID) 25 mcg tablet Take 1 tablet by mouth daily before breakfast. empagliflozin (JARDIANCE) 10 mg tablet Take 1 tablet by mouth daily with breakfast. gabapentin (NEURONTIN) 300 mg capsule Take 1 capsule by mouth two times a day. pantoprazole DR (PROTONIX) 40 mg tablet Take 1 tablet by mouth daily before breakfast. Take on empty stomach, 1/2 hr before meal. warfarin (COUMADIN) 1 mg tablet Take 1 tablet by mouth once daily. Please take daily as directed furosemide (LASIX) 40 mg tablet Take 1 tablet by mouth once daily. Takes twice daily if with increased edema atenolol (TENORMIN) 25 mg tablet Take 1 tablet by mouth two times a day. TRELEGY ELLIPTA 100-62.5-25 mcg inhalation powder Inhale 1 Puff as instructed once daily. Magnesium 30 mg tablet Take 1 tablet by mouth twice daily. calcium carbonate/vitamin d3(CALCIUM 600 + D(3) 600 MG (1,500)-200 UNIT TAB) Take one(1) tablet twice daily BY MOUTH. DAILY MULTIPLE TAB Take one(1) tablet daily BY MOUTH. FAMILY HISTORY Problem Relation Age of Onset Heart Mother [place] Heart Father [place] Diabetes Maternal Uncle Headache Sister Social History Tobacco Use Smoking status: Former Current packs/day: 0.00 Average packs/day: 2.0 packs/day for 30.0 years (60.0 ttl pk-yrs) Types: Cigarettes Start date: 08/22/1970 Quit date: 08/22/2000 Years since quittin.1 Smokeless tobacco: Never Vaping Use Vaping status: Never Used Substance Use Topics Alcohol use: Not Currently Comment: very occasional Drug use: Not Currently Types: Marijuana PHYSICAL EXAM BP 108/68 Pulse 98 Resp 16 Wt 61.2 kg (135 lb) SpO2 93% BMI 27.66 kg/m? General Appearance: well appearing, in no acute distress, alert Neck: Thyroid normal size and symmetric without palpable nodules, Neck supple, No adenopathy Oropharynx: tongue midline and normal, soft palate, uvula, and tonsils normal, palpation of salivary glands negative Lungs: Lungs clear to auscultation. No wheezing, rhonchi, rales. Heart: RRR without murmur, gallop, or rubs. No ectopy Abdomen: soft, nondistended, nontender, no hepatosplenomegaly or masses BUE: No deformities, edema, skin discoloration, clubbing or cyanosis. Good capillary refill. Diagnoses/Plan 1. Pre-operative evaluation Check Complete Metabolic Panel CBC/Differential PT/INR Repeating CXR as she had pneumonia within the last 6 months and no repeat CXR after treatment. Assessment without concern. There is no known pertinent medical condition which may affect ki-operative course MIRANDA risk: Patient is scheduled for a low-risk procedure. Risk of 3.6% calculated using the NSQIP surgical risk calculator The patient is optimized for surgery but needs cardiology clearance as well since has been recently evaluated by them and had recent EKG in their office. This note and paperwork sent to their office as well. ASSESSMENT/PLAN: 1. Preop exam for internal medicine - ICD9: V72.83, ICD10: Z01.818 (primary diagnosis) As above Needs cleared by cardiology as well - COMPLETE BLOOD COUNT - COMPREHENSIVE METABOLIC PANEL - XR CHEST 2V FRONTAL/LAT 2. Longstanding persistent atrial fibrillation (HCC) - ICD9: 427.31, ICD10: I48.11 Stable and asymptomatic Continue current med but will need to hold her coumadin prior to procedure as discussed 3. Centrilobular emphysema (HCC) - ICD9: 492.8, ICD10: J43.2 Stable Continue current medications and recommendations by pulmonology 4. PAH (pulmonary artery hypertension) (HCC) - ICD9: 416.8, ICD10: I27.21 Stable Continue with recommendations by cardiology 5. Rheumatic mitral regurgitation - ICD9: 394.1, ICD10: I05.1 Stable Continue with recommendations by cardiology 6. Stage 3 chronic kidney disease, unspecified whether stage 3a or 3b CKD (HCC) - ICD9: 585.3, ICD10: N18.30 - eGFR: 59 Due for labs - Counseled on avoiding NSAIDs, adequate hydration - EMPAGLIFLOZIN 10 MG TABLET - COMPLETE BLOOD COUNT - COMPREHENSIVE METABOLIC PANEL 7. Congestive heart failure, unspecified HF chronicity, unspecified heart failure type (HCC) - ICD9: 428.0, ICD10: I50.9 Stable Continue with recommendations by cardiology - EMPAGLIFLOZIN 10 MG TABLET - COMPLETE BLOOD COUNT - COMPREHENSIVE METABOLIC PANEL 8. Rheumatoid arthritis with positive rheumatoid factor, involving unspecified site (HCC) - ICD9: 714.0, ICD10: M05.9 Continue with recommendations by rheumatology 9. Prediabetes - ICD9: 790.29, ICD10: R73.03 Unsure on this diagnosis. Definitely benefiting from jardiance with CKD and cardiac hx. Need A1c to evaluate for this prediabetic diagnosis - EMPAGLIFLOZIN 10 MG TABLET - COMPLETE BLOOD COUNT - COMPREHENSIVE METABOLIC PANEL - HEMOGLOBIN A1C 10. Acquired hypothyroidism - ICD9: 244.9, ICD10: E03.9 Asymptomatic - Instructed patient on importance of taking on an empty stomach either first thing in the morning or at bedtime. 11. Bilateral hip pain - ICD9: 719.45, ICD10: M25.551, M25.552 Needs to follow up after surgery to see how pain is so we can try to decrease this use of jail narcotic. May try to increase use of gabapentin as we try to decrease this. - HYDROCODONE 5 MG-ACETAMINOPHEN 325 MG TABLET PDMP website checked and validated. All prescriptions have been APPROPRIATELY filled. No suspicious activity was identified. 09/23/2024 by Shefali Rich APRN.KINGA Rich APRN.KINGA Prescription instructions reviewed with patient as applicable. Potential red flag symptoms discussed with the patient. Reviewed appropriate action plan to take if red flag symptoms occur. Patient agreeable to treatment plan. CNOV Observed: 09/23/2024 10:00 AM Status: COMPLETED Source: [facility] Office Visit (INTMWS) MALU KITCHEN ([id number]) 1945 F Vendor Date Time Provider Department 09/23/24 10:00 AM HILARIOWILDY INTMWS During your visit today, we recorded the following information about you: Pulse Respiration Blood pressure Weight 98/minute 16/minute 108/68 61.2 kg Hilario DAVON Meehan.TRAINING LEAD 09/24/2024 12:18 PM Signed CC: Patient presents with: Pre-Op Exam: Pre- Op clearance L foot Sx HPI Malu Kitchen is a 79 year old female who presents today for pre-op evaluation. Surgical Procedure: metatarsal head resection Date of Procedure: 10/01/24 Surgeon: Dr. Cassie PRINCE date: spinal block with twilight HTN, A-fib, MR, PAH, CHF: Ms. Kitchen denies headache, chest pain, palpitations, increase in chronic dyspnea, or increase in small amount of chronic peripheral edema. Patient denies any side effects of her medication(s) and is compliant with their regimen. She does check BP's away from this office with average BP's in the 110s/60s range. Malu denies regular aerobic exercise. She watches her diet for sodium, low fat and low cholesterol most of the time. Follows with [facility]. Last Seen 2 weeks ago. Per patient for routine follow up without concern. Is on coumadin for DVT prophylaxis. Last 3 Encounter BP Readings: Date: BP: 09/23/2024 108/68 06/22/2024 122/70 06/07/2024 116/65 Emphysema: Follows With Dr. Chao at [facility]. Has yearly follow ups with next one in a month. Has not needed her albuterol inhaler in over 6 months. Last need for steroid was when she was hospitalized for pneumonia almost 5 months ago. Wears 4L of Oxygen at night after having a sleep study done early last year showing her dropping into the 60s when she slept. Denies cough, wheezing, chest tightness, fever, or chills. Hypothyroidism: Taking medication as ordered on an empty stomach. Denies any abnormal changes in weight or energy. RA: Sees Dr. Núñez. Gets infusion of leflunomide along with daily tablet as ordered by Dr. Núñez. Still with some joint symptoms even with this treatment. Patient on jardiance. Has history of CKD with large cardiac history. Has prediabetes in her history of diagnoses but no HgbA1c available to review. METS: Walk indoors, such as around the house (1.75 METs): YES Do light work around the house, such as dusting or washing dishes (2.70 METs): YES Take care of self; that is eating, dressing, bathing, using the toilet (2.75 METs): YES Walk a block or two on level ground (2.75 METs): YES Do moderate work around the house such as vacuuming, sweeping floors, or carrying in groceries (3.50 METs): YES Do yardwork, such as raking leaves, weeding,or pushing a power mower (4.50 METs): YES Climb a flight of stairs or walk up a hill (5.50 METs): YES Participate in moderate recreational activities, such as golf, bowling, dancing, doubles tennis, or throwing a baseball or football (6.00 METs): does not perform these activities Participate in strenuous sport, such as swimming, singles tennis, football, basketball, or skiing (7.50 METs): does not perform these activities Do heavy work around the house, such as scrubbing floors, lifting or moving heavy furniture (8.00 METs): does not perform these activities Run a short distance (8.00 METs): does not perform these activities Total: 5.5 Patient denies any chest pain or undue shortness of breath with the above physical activity. 1. Diabetes: None 2. Hypertension requiring medication: Yes 3. Congestive Heart Failure: Yes 4. Current Smoker within 1 Year: No 5. History of COPD: Yes 6. History of MARKELL: No - low oxygen saturation with sleep 7. Dialysis: No REVIEW OF SYSTEMS General: no fevers, no chills, no night sweats, no recurrent infections, no change in appetite, no change in energy, and no significant changes in weight HEENT: no frequent or significant headaches, no changes in hearing, no visual changes, no nose bleeds Neck: no lumps, no pain , and no swelling GI: No nausea, vomiting, or diarrhea : No history of dysuria, frequency or incontinence Neurologic: No headache, weakness, dizziness, memory loss, syncope. PAST MEDICAL HISTORY Diagnosis Date Acquired hypothyroidism 01/23/2022 Acute gastritis without mention of hemorrhage Acute, but ill-defined, cerebrovascular disease AMNESIA (RETROGRADE) TRANSIENT GLOBAL 07/15/2007 This was along with the TIA that she had. Atrial fibrillation (HCC) Basal cell carcinoma 12/16/2023 scalp Bleeding gastrointestinal 09/2020 Centrilobular emphysema (HCC) 04/13/2020 Patient had PFTs in 2019 and was found to have moderately severe large air way vent defect, which was irreversible. This was associated with trapping of air And mild reduction in the diffusion capacity. She has more that 60 pack years smoking, but stopped in 2000 She is on Anoro ellipta and is doing well, good exercise tolerance does the bike mostly. Does good exercise at work, around 18,000 Complete rupture of rotator cuff 2006 Congestive heart failure, unspecified HF chronicity, unspecified heart failure type (HCC) 05/12/2023 Cystocele 07/29/2013 Diarrhea Diverticulosis of colon (without mention of hemorrhage) Gastrointestinal hemorrhage associated with anorectal source 11/22/2020 Was admitted in September 2020 with the red blood per rectum. At that time INR was 1.7 as she is on Coumadin, her hemoglobin was stable so no blood transfusion was required. She had a CT scan and contrast and was given IV fluids after which she developed some shortness of breath and was given Lasix and she was sent home the next day after an echo. 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 Chao at [facility] [place]. She is on trilogy Ellipta. She has quit smoking in the past we encouraged her to continue to quit smoking. Stroke (HCC) x 2 last stroke 02/14/2016 TIA (transient ischemic attack) 12/16/2007 Unspecified inflammatory polyarthropathy PAST SURGICAL HISTORY Procedure Laterality Date ARTHRP ACETBLR/PROX FEM PROSTC AGRFT/ALGRFT 02/20/2015 Hip replacement, total COLONOSCOPY GEN ANES 11/22/2020 COLONOSCOPY W/BIOPSY SINGLE/MULTIPLE 10/03/2009 EGD 11/22/2020 EGD TRANSORAL BIOPSY SINGLE/MULTIPLE 10/13/2008 minimal gastritis HEART CATHETERIZATION 2009 OPEN REPAIR OF ROTATOR CUFF ACUTE 1996, 2001,2002 Rotator cuff repair-right shoulder OPEN REPAIR OF ROTATOR CUFF ACUTE 2006 Left PAST SURGICAL HISTORY OF 1998 L5-DIONICIO Spinal Fusion PAST SURGICAL HISTORY OF right foot x2, spur, neuroma PAST SURGICAL HISTORY OF 1967 cyst removed right breast PAST SURGICAL HISTORY OF 05/05/2014 Anterior colporrhaphy, Vaginal vault suspension per SUPeR trial ; Cystourethroscopy PAST SURGICAL HISTORY OF 10/2013 left shoulder replacement PAST SURGICAL HISTORY OF Right 09/21/2018 right reverse total shoulder arthroplasty [facility] REVISE MEDIAN N/CARPAL TUNNEL SURG Right 01/15/2024 Right Carpal tunnel release WRIST SURGERY HX Left 2018 removed 3 bones in wrist ALLERGIES Adhesive Tape (Rosins), Ibuprofen, and Vicodin [Hydrocodone-Acetaminophen] MEDICATIONS metOLazone (ZAROXOLYN) 2.5 mg tablet Take 1 tablet by mouth every other day. HYDROcodone-acetaminophen (NORCO) 5-325 mg per tablet Take 1 tablet by mouth every 8 hours as needed for pain for up to 30 days. dilTIAZem CD (CARDIZEM CD) 180 mg 24 hr capsule Take 1 capsule by mouth once daily. potassium chloride SR (MICRO-K) 10 mEq CR capsule Take 2 capsules by mouth two times a day. predniSONE (DELTASONE) 5 mg tablet Take 5 mg by mouth once daily. Dr. Núñez leflunomide (ARAVA) 10 mg tablet Take 1 tablet by mouth once daily. levothyroxine (SYNTHROID) 25 mcg tablet Take 1 tablet by mouth daily before breakfast. empagliflozin (JARDIANCE) 10 mg tablet Take 1 tablet by mouth daily with breakfast. gabapentin (NEURONTIN) 300 mg capsule Take 1 capsule by mouth two times a day. pantoprazole DR (PROTONIX) 40 mg tablet Take 1 tablet by mouth daily before breakfast. Take on empty stomach, 1/2 hr before meal. warfarin (COUMADIN) 1 mg tablet Take 1 tablet by mouth once daily. Please take daily as directed furosemide (LASIX) 40 mg tablet Take 1 tablet by mouth once daily. Takes twice daily if with increased edema atenolol (TENORMIN) 25 mg tablet Take 1 tablet by mouth two times a day. TRELEGY ELLIPTA 100-62.5-25 mcg inhalation powder Inhale 1 Puff as instructed once daily. Magnesium 30 mg tablet Take 1 tablet by mouth twice daily. calcium carbonate/vitamin d3(CALCIUM 600 + D(3) 600 MG (1,500)-200 UNIT TAB) Take one(1) tablet twice daily BY MOUTH. DAILY MULTIPLE TAB Take one(1) tablet daily BY MOUTH. FAMILY HISTORY Problem Relation Age of Onset Heart Mother KS Heart Father [place] Diabetes Maternal Uncle Headache Sister Social History Tobacco Use Smoking status: Former Current packs/day: 0.00 Average packs/day: 2.0 packs/day for 30.0 years (60.0 ttl pk-yrs) Types: Cigarettes Start date: 08/22/1970 Quit date: 08/22/2000 Years since quittin.1 Smokeless tobacco: Never Vaping Use Vaping status: Never Used Substance Use Topics Alcohol use: Not Currently Comment: very occasional Drug use: Not Currently Types: Marijuana PHYSICAL EXAM BP 108/68 Pulse 98 Resp 16 Wt 61.2 kg (135 lb) SpO2 93% BMI 27.66 kg/m? General Appearance: well appearing, in no acute distress, alert Neck: Thyroid normal size and symmetric without palpable nodules, Neck supple, No adenopathy Oropharynx: tongue midline and normal, soft palate, uvula, and tonsils normal, palpation of salivary glands negative Lungs: Lungs clear to auscultation. No wheezing, rhonchi, rales. Heart: RRR without murmur, gallop, or rubs. No ectopy Abdomen: soft, nondistended, nontender, no hepatosplenomegaly or masses BUE: No deformities, edema, skin discoloration, clubbing or cyanosis. Good capillary refill. Diagnoses/Plan 1. Pre-operative evaluation Check Complete Metabolic Panel CBC/Differential PT/INR Repeating CXR as she had pneumonia within the last 6 months and no repeat CXR after treatment. Assessment without concern. There is no known pertinent medical condition which may affect ki-operative course MIRANDA risk: Patient is scheduled for a low-risk procedure. Risk of 3.6% calculated using the NSQIP surgical risk calculator The patient is optimized for surgery but needs cardiology clearance as well since has been recently evaluated by them and had recent EKG in their office. This note and paperwork sent to their office as well. ASSESSMENT/PLAN: 1. Preop exam for internal medicine - ICD9: V72.83, ICD10: Z01.818 (primary diagnosis) As above Needs cleared by cardiology as well - COMPLETE BLOOD COUNT - COMPREHENSIVE METABOLIC PANEL - XR CHEST 2V FRONTAL/LAT 2. Longstanding persistent atrial fibrillation (HCC) - ICD9: 427.31, ICD10: I48.11 Stable and asymptomatic Continue current med but will need to hold her coumadin prior to procedure as discussed 3. Centrilobular emphysema (HCC) - ICD9: 492.8, ICD10: J43.2 Stable Continue current medications and recommendations by pulmonology 4. PAH (pulmonary artery hypertension) (HCC) - ICD9: 416.8, ICD10: I27.21 Stable Continue with recommendations by cardiology 5. Rheumatic mitral regurgitation - ICD9: 394.1, ICD10: I05.1 Stable Continue with recommendations by cardiology 6. Stage 3 chronic kidney disease, unspecified whether stage 3a or 3b CKD (HCC) - ICD9: 585.3, ICD10: N18.30 - eGFR: 59 Due for labs - Counseled on avoiding NSAIDs, adequate hydration - EMPAGLIFLOZIN 10 MG TABLET - COMPLETE BLOOD COUNT - COMPREHENSIVE METABOLIC PANEL 7. Congestive heart failure, unspecified HF chronicity, unspecified heart failure type (HCC) - ICD9: 428.0, ICD10: I50.9 Stable Continue with recommendations by cardiology - EMPAGLIFLOZIN 10 MG TABLET - COMPLETE BLOOD COUNT - COMPREHENSIVE METABOLIC PANEL 8. Rheumatoid arthritis with positive rheumatoid factor, involving unspecified site (HCC) - ICD9: 714.0, ICD10: M05.9 Continue with recommendations by rheumatology 9. Prediabetes - ICD9: 790.29, ICD10: R73.03 Unsure on this diagnosis. Definitely benefiting from jardiance with CKD and cardiac hx. Need A1c to evaluate for this prediabetic diagnosis - EMPAGLIFLOZIN 10 MG TABLET - COMPLETE BLOOD COUNT - COMPREHENSIVE METABOLIC PANEL - HEMOGLOBIN A1C 10. Acquired hypothyroidism - ICD9: 244.9, ICD10: E03.9 Asymptomatic - Instructed patient on importance of taking on an empty stomach either first thing in the morning or at bedtime. 11. Bilateral hip pain - ICD9: 719.45, ICD10: M25.551, M25.552 Needs to follow up after surgery to see how pain is so we can try to decrease this use of [place]aker narcotic. May try to increase use of gabapentin as we try to decrease this. - HYDROCODONE 5 MG-ACETAMINOPHEN 325 MG TABLET PDMP website checked and validated. All prescriptions have been APPROPRIATELY filled. No suspicious activity was identified. 09/23/2024 by Shefali Rich APRN.TRAINING LEAD Shefali Rich APRN.TRAINING LEAD Prescription instructions reviewed with patient as applicable. Potential red flag symptoms discussed with the patient. Reviewed appropriate action plan to take if red flag symptoms occur. Patient agreeable to treatment plan. Allergies As of Date: 09/23/2024 Noted Allergy Reaction ADHESIVE TAPE (ROSINS) 08/22/2005 2 - Rash IBUPROFEN 06/06/2014 Comments: Pt on coumadin VICODIN (HYDROCODONE-ACETAMINOPHE*12/15/2014 8 - GI Upset Date Reviewed: 09/23/2024 Reviewed by: Shefali Rich APRN.TRAINING LEAD - Fully Assessed Reason for Visit: Pre-Op Exam [87] Cmt: Pre- Op clearance L foot Sx Primary Visit Diagnosis:Preop exam for internal medicine [Z01.818] Other Visit Diagnoses:Longstanding persistent atrial fibrillation (HCC) [I48.11] Centrilobular emphysema (HCC) [J43.2] PAH (pulmonary artery hypertension) (HCC) [I27.21] Rheumatic mitral regurgitation [I05.1] Stage 3 chronic kidney disease, unspecified whether stage 3a or 3b CKD (HCC) [N18.30] Congestive heart failure, unspecified HF chronicity, unspecified heart failure type (HCC) [I50.9] Rheumatoid arthritis with positive rheumatoid factor, involving unspecified site (HCC) [M05.9] Prediabetes [R73.03] Acquired hypothyroidism [E03.9] Bilateral hip pain [M25.551, M25.552] Order(s):empagliflozin (JARDIANCE) 10 mg tabletTake 1 tablet by mouth daily with breakfast.Disp: 90 tabletRfl: 3 ADVANCE CARE PLAN DISCUSSION [[id number]] Order #: [id number]: 1 COMPLETE BLOOD COUNT [SQCBC] Order #: [id number] FUTURE COMPREHENSIVE METABOLIC PANEL [SQCMP] Order #: [id number] FUTURE XR CHEST 2V FRONTAL/LAT [1008213] Order #: [id number] FUTURE HEMOGLOBIN A1C [GJQIF9I] Order #: [id number] FUTURE HYDROcodone-acetaminophen (NORCO) 5-325 mg per tabletTake 1 tablet by mouth every 8 hours as needed for pain for up to 30 days.Disp: 30 tabletRfl: 0 Prescriptions as of 09/24/2024 - empagliflozin (JARDIANCE) 10 mg tablet Take 1 tablet by mouth daily with breakfast. - HYDROcodone-acetaminophen (NORCO) 5-325 mg per tablet Take 1 tablet by mouth every 8 hours as needed for pain for up to 30 days. - metOLazone (ZAROXOLYN) 2.5 mg tablet Take 1 tablet by mouth every other day. - dilTIAZem CD (CARDIZEM CD) 180 mg 24 hr capsule Take 1 capsule by mouth once daily. - potassium chloride SR (MICRO-K) 10 mEq CR capsule Take 2 capsules by mouth two times a day. - leflunomide (ARAVA) 10 mg tablet Take 1 tablet by mouth once daily. - levothyroxine (SYNTHROID) 25 mcg tablet Take 1 tablet by mouth daily before breakfast. - gabapentin (NEURONTIN) 300 mg capsule Take 1 capsule by mouth two times a day. - pantoprazole DR (PROTONIX) 40 mg tablet Take 1 tablet by mouth daily before breakfast. Take on empty stomach, 1/2 hr before meal. - warfarin (COUMADIN) 1 mg tablet Take 1 tablet by mouth once daily. Please take daily as directed - furosemide (LASIX) 40 mg tablet Take 1 tablet by mouth once daily. Takes twice daily if with increased edema - atenolol (TENORMIN) 25 mg tablet Take 1 tablet by mouth two times a day. - TRELEGY ELLIPTA 100-62.5-25 mcg inhalation powder Inhale 1 Puff as instructed once daily. - Magnesium 30 mg tablet Take 1 tablet by mouth twice daily. - calcium carbonate/vitamin d3(CALCIUM 600 + D(3) 600 MG (1,500)-200 UNIT TAB) Take one(1) tablet twice daily BY MOUTH. - DAILY MULTIPLE TAB Take one(1) tablet daily BY MOUTH. Problem List As Of Date 09/23/2024 Noted Resolved Osteoarthrosis, unspecified whether generalized* 03/11/2017 AMNESIA (RETROGRADE) TRANSIENT GLOBAL [G45.4] 07/15/2007 06/26/2023 HIGH BLOOD PRESSURE-NO HYPERTENSN [R03.0] 07/15/2007 03/11/2017 INSOMNIA [G47.00] 07/15/2007 TOBACCO USE - PERSONAL HX [Z87.891] 07/15/2007 03/11/2017 Hyperlipidemia [E78.5] 08/20/2007 TIA (transient ischemic attack) [G45.9] 12/16/2007 06/26/2023 Acute gastritis with hemorrhage [K29.01] 10/13/2008 03/11/2017 Acute gastritis without mention of hemorrhage [*10/13/2008 03/11/2017 Hyperlipemia [E78.5] 06/16/2009 02/02/2016 Atrial Fibrillation [I48.91] 06/16/2009 12/16/2014 Sicca syndrome (HCC) [M35.00] 03/11/2017 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] 03/11/2017 Generalized Osteoarthrosis, Involving Hand [M15* Diarrhea [R19.7] 10/03/2009 12/16/2014 Diverticulosis of colon (without mention of hem*10/03/2009 06/26/2023 Internal hemorrhoids without mention of complic*10/03/2009 03/11/2017 Mitral regurgitation [I34.0] 09/02/2011 Right wrist pain [M25.531] 12/15/2012 03/11/2017 Uterovaginal prolapse [N81.4] 07/29/2013 03/11/2017 Cystocele [JZS1928] 07/29/2013 06/26/2023 Rotator cuff tear arthropathy of both shoulders*08/24/2013 PMB (postmenopausal bleeding) [N95.0] 09/07/2013 03/11/2017 Atrial fibrillation (HCC) [I48.91] 12/16/2014 Psoas tendinitis of right side [M76.11] 12/05/2015 03/11/2017 Gastroesophageal reflux disease without esophag*03/11/2016 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 *07/08/2016 Bilateral hip pain [M25.551, M25.552] 03/11/2017 S/P lumbar fusion [Z98.1] 06/02/2017 Abrasion of left forearm [S50.812A] 06/26/2017 03/18/2023 Laceration of left forearm [S51.812A] 06/26/2017 03/18/2023 Contusion of left hand [S60.222A] 06/26/2017 03/18/2023 Hematoma of left hip [S70.02XA] 06/26/2017 06/26/2023 Contusion of left knee [S80.02XA] 06/26/2017 03/18/2023 Primary osteoarthritis involving multiple joint*03/24/2018 Centrilobular emphysema (HCC) [J43.2] 04/13/2020 Gastrointestinal hemorrhage associated with ano*11/22/2020 06/26/2023 Iron deficiency anemia due to chronic blood los*11/22/2020 Pinched nerve in neck [G58.9] 01/30/2021 06/05/2021 Simple chronic bronchitis (HCC) [J41.0] 03/26/2021 Nonrheumatic tricuspid valve regurgitation [I36*03/26/2021 Congestive heart failure, unspecified HF chroni*05/12/2023 Acute respiratory failure with hypoxia and hype*05/12/2023 03/17/2024 Pulmonary hypertension due to lung diseases and*06/23/2023 Acquired hypothyroidism [E03.9] 01/23/2022 Rheumatoid arthritis with positive rheumatoid f*09/17/2023 PAH (pulmonary artery hypertension) (HCC) [I27.*07/01/2024 Prescriptions ordered this encounter Disp Refills Start End EMPAGLIFLOZIN 10 MG TABLET 90 t* 3 09/23/2024 Route: ORAL Sig: Take 1 tablet by mouth daily with breakfast. HYDROCODONE 5 MG-ACETAMINOPHEN 325 M* 30 t* 0 09/23/2024 10/23/2024 Route: ORAL Sig: Take 1 tablet by mouth every 8 hours as needed for pain for up to 30 days. Medications Discontinued During This Encounter Prescriptions - predniSONE (DELTASONE) 5 mg tablet (Discontinued) Take 5 mg by mouth once daily. Dr. Núñez - empagliflozin (JARDIANCE) 10 mg tablet (Discontinued) Take 1 tablet by mouth daily with breakfast. - HYDROcodone-acetaminophen (NORCO) 5-325 mg per tablet (Discontinued) Take 1 tablet by mouth every 8 hours as needed for pain for up to 30 days. Disposition: Return in about 4 weeks (around 10/21/2024) for pain control - decreasing narcotic. Follow-up and Disposition History for Encounter Date Provider Department Center 09/23/2024 [id number] RICH [facility] Encounter Status:Closed by SHEFALI RICH on 09/24/24 KINGAN Observed: 09/21/2024 12:00 AM Status: COMPLETED Source: [facility] Telephone (A[facility]PWS) MALU KITCHEN ([id number]) 1945 F Vendor Date Time Provider Department 09/21/24 ANDRA RODRIGUES During your visit today, we recorded the following information about you: Jennyfer Rodrgiuez LPN 09/21/2024 3:09 PM Signed Last INR: 2.0 09/21/2024 per home INR from [facility] Current dose of coumadin is: 1mg daily Last date of dosage change: Previous INR (date and results): 2.2 on 09/14/2024 Additional Clinical Information or narrative: INR goat is 2-3 Per [facility] Patient checked INR weekly Patient will continue and recheck: No need to call her back. Patient findings are negative. Andra Rodrigues MD 09/21/2024 5:25 PM Signed Cont the same dose and recheck. Regards, Tammi Ardon MD, MA 09/22/2024 8:07 AM Signed Patient asking when you would like to recheck? Shefali Rich APRN.TRAINING LEAD 09/22/2024 2:57 PM Signed I do not see any rent dose change so 4 weeks is fine but I see that her home monitoring system requires weekly Thank you Shefali Rich APRN.Tammi Collado MA 09/22/2024 3:19 PM Signed Patient notified. Allergies As of Date: 09/21/2024 Noted Allergy Reaction ADHESIVE TAPE (ROSINS) 08/22/2005 2 - Rash IBUPROFEN 06/06/2014 Comments: Pt on coumadin VICODIN (HYDROCODONE-ACETAMINOPHE*12/15/2014 8 - GI Upset Date Reviewed: 07/01/2024 Reviewed by: Randa Hairston, RN - Fully Assessed Reason for Visit: Anticoagulation [8] Prescriptions as of 09/22/2024 - metOLazone (ZAROXOLYN) 2.5 mg tablet Take 1 tablet by mouth every other day. - HYDROcodone-acetaminophen (NORCO) 5-325 mg per tablet Take 1 tablet by mouth every 8 hours as needed for pain for up to 30 days. - dilTIAZem CD (CARDIZEM CD) 180 mg 24 hr capsule Take 1 capsule by mouth once daily. - potassium chloride SR (MICRO-K) 10 mEq CR capsule Take 2 capsules by mouth two times a day. - predniSONE (DELTASONE) 5 mg tablet Take 5 mg by mouth once daily. Dr. Núñez - leflunomide (ARAVA) 10 mg tablet Take 1 tablet by mouth once daily. - levothyroxine (SYNTHROID) 25 mcg tablet Take 1 tablet by mouth daily before breakfast. - empagliflozin (JARDIANCE) 10 mg tablet Take 1 tablet by mouth daily with breakfast. - gabapentin (NEURONTIN) 300 mg capsule Take 1 capsule by mouth two times a day. - pantoprazole DR (PROTONIX) 40 mg tablet Take 1 tablet by mouth daily before breakfast. Take on empty stomach, 1/2 hr before meal. - warfarin (COUMADIN) 1 mg tablet Take 1 tablet by mouth once daily. Please take daily as directed - furosemide (LASIX) 40 mg tablet Take 1 tablet by mouth once daily. Takes twice daily if with increased edema - atenolol (TENORMIN) 25 mg tablet Take 1 tablet by mouth two times a day. - TRELEGY ELLIPTA 100-62.5-25 mcg inhalation powder Inhale 1 Puff as instructed once daily. - Magnesium 30 mg tablet Take 1 tablet by mouth twice daily. - calcium carbonate/vitamin d3(CALCIUM 600 + D(3) 600 MG (1,500)-200 UNIT TAB) Take one(1) tablet twice daily BY MOUTH. - DAILY MULTIPLE TAB Take one(1) tablet daily BY MOUTH. Problem List As Of Date 09/21/2024 Noted Resolved Osteoarthrosis, unspecified whether generalized* 03/11/2017 AMNESIA (RETROGRADE) TRANSIENT GLOBAL [G45.4] 07/15/2007 06/26/2023 HIGH BLOOD PRESSURE-NO HYPERTENSN [R03.0] 07/15/2007 03/11/2017 INSOMNIA [G47.00] 07/15/2007 TOBACCO USE - PERSONAL HX [Z87.891] 07/15/2007 03/11/2017 Hyperlipidemia [E78.5] 08/20/2007 TIA (transient ischemic attack) [G45.9] 12/16/2007 06/26/2023 Acute gastritis with hemorrhage [K29.01] 10/13/2008 03/11/2017 Acute gastritis without mention of hemorrhage [*10/13/2008 03/11/2017 Hyperlipemia [E78.5] 06/16/2009 02/02/2016 Atrial Fibrillation [I48.91] 06/16/2009 12/16/2014 Sicca syndrome (HCC) [M35.00] 03/11/2017 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] 03/11/2017 Generalized Osteoarthrosis, Involving Hand [M15* Diarrhea [R19.7] 10/03/2009 12/16/2014 Diverticulosis of colon (without mention of hem*10/03/2009 06/26/2023 Internal hemorrhoids without mention of complic*10/03/2009 03/11/2017 Mitral regurgitation [I34.0] 09/02/2011 Right wrist pain [M25.531] 12/15/2012 03/11/2017 Uterovaginal prolapse [N81.4] 07/29/2013 03/11/2017 Cystocele [BFP0875] 07/29/2013 06/26/2023 Rotator cuff tear arthropathy of both shoulders*08/24/2013 PMB (postmenopausal bleeding) [N95.0] 09/07/2013 03/11/2017 Atrial fibrillation (HCC) [I48.91] 12/16/2014 Psoas tendinitis of right side [M76.11] 12/05/2015 03/11/2017 Gastroesophageal reflux disease without esophag*03/11/2016 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 *07/08/2016 Bilateral hip pain [M25.551, M25.552] 03/11/2017 S/P lumbar fusion [Z98.1] 06/02/2017 Abrasion of left forearm [S50.812A] 06/26/2017 03/18/2023 Laceration of left forearm [S51.812A] 06/26/2017 03/18/2023 Contusion of left hand [S60.222A] 06/26/2017 03/18/2023 Hematoma of left hip [S70.02XA] 06/26/2017 06/26/2023 Contusion of left knee [S80.02XA] 06/26/2017 03/18/2023 Primary osteoarthritis involving multiple joint*03/24/2018 Centrilobular emphysema (HCC) [J43.2] 04/13/2020 Gastrointestinal hemorrhage associated with ano*11/22/2020 06/26/2023 Iron deficiency anemia due to chronic blood los*11/22/2020 Pinched nerve in neck [G58.9] 01/30/2021 06/05/2021 Simple chronic bronchitis (HCC) [J41.0] 03/26/2021 Nonrheumatic tricuspid valve regurgitation [I36*03/26/2021 Congestive heart failure, unspecified HF chroni*05/12/2023 Acute respiratory failure with hypoxia and hype*05/12/2023 03/17/2024 Pulmonary hypertension due to lung diseases and*06/23/2023 Acquired hypothyroidism [E03.9] 01/23/2022 Rheumatoid arthritis with positive rheumatoid f*09/17/2023 PAH (pulmonary artery hypertension) (HCC) [I27.*07/01/2024 Encounter Status:Closed by TAMMI DOTSON on 09/22/24 CNPN Observed: 09/14/2024 12:00 AM Status: COMPLETED Source: [facility] Telephone (INTMWS) MALU KITCHEN ([id number]) 1945 F Vendor Date Time Provider Department 09/14/24 ANDRA RODRIGUES IN[facility]WS During your visit today, we recorded the following information about you: Zahra Prater LPN 09/14/2024 11:54 AM Signed Last INR: 2.2 09/14/2024 per home INR from [facility] Current dose of coumadin is: 1mg daily Last date of dose change: . Previous INR (date and result): 09/06/24 was 2.3 Additional Clinical Information or narrative: INR goal is 2-3. Per [facility] pt checked INR weekly. Pt will continue and recheck 09/21/24. No need to call her back. Pt findings are negative. Andra Rodrigues MD 09/14/2024 5:08 PM Signed agree Allergies As of Date: 09/14/2024 Noted Allergy Reaction ADHESIVE TAPE (ROSINS) 08/22/2005 2 - Rash IBUPROFEN 06/06/2014 Comments: Pt on coumadin VICODIN (HYDROCODONE-ACETAMINOPHE*12/15/2014 8 - GI Upset Date Reviewed: 07/01/2024 Reviewed by: Randa Hairston RN - Fully Assessed Reason for Visit: Anticoagulation [8] Order(s):PROTHROMBIN TIME [SQPT] Order #: [id number] Prescriptions as of 09/15/2024 - HYDROcodone-acetaminophen (NORCO) 5-325 mg per tablet Take 1 tablet by mouth every 8 hours as needed for pain for up to 30 days. - dilTIAZem CD (CARDIZEM CD) 180 mg 24 hr capsule Take 1 capsule by mouth once daily. - potassium chloride SR (MICRO-K) 10 mEq CR capsule Take 2 capsules by mouth two times a day. - predniSONE (DELTASONE) 5 mg tablet Take 5 mg by mouth once daily. Dr. Núñez - leflunomide (ARAVA) 10 mg tablet Take 1 tablet by mouth once daily. - levothyroxine (SYNTHROID) 25 mcg tablet Take 1 tablet by mouth daily before breakfast. - empagliflozin (JARDIANCE) 10 mg tablet Take 1 tablet by mouth daily with breakfast. - gabapentin (NEURONTIN) 300 mg capsule Take 1 capsule by mouth two times a day. - pantoprazole DR (PROTONIX) 40 mg tablet Take 1 tablet by mouth daily before breakfast. Take on empty stomach, 1/2 hr before meal. - metOLazone (ZAROXOLYN) 2.5 mg tablet Take 1 tablet by mouth every other day. - warfarin (COUMADIN) 1 mg tablet Take 1 tablet by mouth once daily. Please take daily as directed - furosemide (LASIX) 40 mg tablet Take 1 tablet by mouth once daily. Takes twice daily if with increased edema - atenolol (TENORMIN) 25 mg tablet Take 1 tablet by mouth two times a day. - TRELEGY ELLIPTA 100-62.5-25 mcg inhalation powder Inhale 1 Puff as instructed once daily. - Magnesium 30 mg tablet Take 1 tablet by mouth twice daily. - calcium carbonate/vitamin d3(CALCIUM 600 + D(3) 600 MG (1,500)-200 UNIT TAB) Take one(1) tablet twice daily BY MOUTH. - DAILY MULTIPLE TAB Take one(1) tablet daily BY MOUTH. Problem List As Of Date 09/14/2024 Noted Resolved Osteoarthrosis, unspecified whether generalized* 03/11/2017 AMNESIA (RETROGRADE) TRANSIENT GLOBAL [G45.4] 07/15/2007 06/26/2023 HIGH BLOOD PRESSURE-NO HYPERTENSN [R03.0] 07/15/2007 03/11/2017 INSOMNIA [G47.00] 07/15/2007 TOBACCO USE - PERSONAL HX [Z87.891] 07/15/2007 03/11/2017 Hyperlipidemia [E78.5] 08/20/2007 TIA (transient ischemic attack) [G45.9] 12/16/2007 06/26/2023 Acute gastritis with hemorrhage [K29.01] 10/13/2008 03/11/2017 Acute gastritis without mention of hemorrhage [*10/13/2008 03/11/2017 Hyperlipemia [E78.5] 06/16/2009 02/02/2016 Atrial Fibrillation [I48.91] 06/16/2009 12/16/2014 Sicca syndrome (HCC) [M35.00] 03/11/2017 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] 03/11/2017 Generalized Osteoarthrosis, Involving Hand [M15* Diarrhea [R19.7] 10/03/2009 12/16/2014 Diverticulosis of colon (without mention of hem*10/03/2009 06/26/2023 Internal hemorrhoids without mention of complic*10/03/2009 03/11/2017 Mitral regurgitation [I34.0] 09/02/2011 Right wrist pain [M25.531] 12/15/2012 03/11/2017 Uterovaginal prolapse [N81.4] 07/29/2013 03/11/2017 Cystocele [MVG3729] 07/29/2013 06/26/2023 Rotator cuff tear arthropathy of both shoulders*08/24/2013 PMB (postmenopausal bleeding) [N95.0] 09/07/2013 03/11/2017 Atrial fibrillation (HCC) [I48.91] 12/16/2014 Psoas tendinitis of right side [M76.11] 12/05/2015 03/11/2017 Gastroesophageal reflux disease without esophag*03/11/2016 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 *07/08/2016 Bilateral hip pain [M25.551, M25.552] 03/11/2017 S/P lumbar fusion [Z98.1] 06/02/2017 Abrasion of left forearm [S50.812A] 06/26/2017 03/18/2023 Laceration of left forearm [S51.812A] 06/26/2017 03/18/2023 Contusion of left hand [S60.222A] 06/26/2017 03/18/2023 Hematoma of left hip [S70.02XA] 06/26/2017 06/26/2023 Contusion of left knee [S80.02XA] 06/26/2017 03/18/2023 Primary osteoarthritis involving multiple joint*03/24/2018 Centrilobular emphysema (HCC) [J43.2] 04/13/2020 Gastrointestinal hemorrhage associated with ano*11/22/2020 06/26/2023 Iron deficiency anemia due to chronic blood los*11/22/2020 Pinched nerve in neck [G58.9] 01/30/2021 06/05/2021 Simple chronic bronchitis (HCC) [J41.0] 03/26/2021 Nonrheumatic tricuspid valve regurgitation [I36*03/26/2021 Congestive heart failure, unspecified HF chroni*05/12/2023 Acute respiratory failure with hypoxia and hype*05/12/2023 03/17/2024 Pulmonary hypertension due to lung diseases and*06/23/2023 Acquired hypothyroidism [E03.9] 01/23/2022 Rheumatoid arthritis with positive rheumatoid f*09/17/2023 PAH (pulmonary artery hypertension) (HCC) [I27.*07/01/2024 Encounter Status:Closed by ZAHRA PRATER on 09/15/24 [place] Observed: 09/07/2024 12:00 AM Status: COMPLETED Source: [facility] Telephone (INTMWS) MALU KITCHEN ([id number]) 1945 F Vendor Date Time Provider Department 09/07/24 CARMEN LINDA During your visit today, we recorded the following information about you: Marlene Easton, MOSHE 09/07/2024 1:55 PM Signed Pam personnel training officer at [facility] ([place], [place] calling. She states pt is having surgery on 10/[address] Bennett Hartman who is a head operator. Pam made a preop clearance appt with Carmen Linda for next Friday. Pam states that anesthesia requires all pts having surgery at [facility] to have a HANDH, BUN, Glucose, EKG and CXR. Pam wants to know if provider would like pt to have that done prior to the visit or will she just order when pt comes in for appt? Please call Pam back at [phone] and let her know. Pam is going to fax over the HANDP form and PAT orders to [phone]. Carmen Linda PA-C 09/07/2024 2:52 PM Signed Lab orders and CXR ordered-can have prior to the day of the visit. Carmen Linda PA-C direct admit Melissa Luz MA 09/07/2024 3:18 PM Signed Spoke to personnel training officer Pam-patient unable to keep 09/14 appointment. Patient previously scheduled for 3 month f/u with Zhane. Updated patient's appt notes to show need for pre op exam. Melissa Luz MA Allergies As of Date: 09/07/2024 Noted Allergy Reaction ADHESIVE TAPE (ROSINS) 08/22/2005 2 - Rash IBUPROFEN 06/06/2014 Comments: Pt on coumadin VICODIN (HYDROCODONE-ACETAMINOPHE*12/15/2014 8 - GI Upset Date Reviewed: 07/01/2024 Reviewed by: Randa Hairston, RN - Fully Assessed Reason for Visit: Pre-Op Exam [87] Primary Visit Diagnosis:Pre-op exam [Z01.818] Order(s):COMPLETE BLOOD COUNT AND DIFFERENTIAL [SQCBCDIF] Order #: [id number] FUTURE BASIC METABOLIC PANEL [SQBMP] Order #: [id number] FUTURE XR CHEST 2V FRONTAL/LAT [[id number]] Order #: [id number] FUTURE Prescriptions as of 09/07/2024 - HYDROcodone-acetaminophen (NORCO) 5-325 mg per tablet Take 1 tablet by mouth every 8 hours as needed for pain for up to 30 days. - dilTIAZem CD (CARDIZEM CD) 180 mg 24 hr capsule Take 1 capsule by mouth once daily. - potassium chloride SR (MICRO-K) 10 mEq CR capsule Take 2 capsules by mouth two times a day. - predniSONE (DELTASONE) 5 mg tablet Take 5 mg by mouth once daily. Dr. Núñez - leflunomide (ARAVA) 10 mg tablet Take 1 tablet by mouth once daily. - levothyroxine (SYNTHROID) 25 mcg tablet Take 1 tablet by mouth daily before breakfast. - empagliflozin (JARDIANCE) 10 mg tablet Take 1 tablet by mouth daily with breakfast. - gabapentin (NEURONTIN) 300 mg capsule Take 1 capsule by mouth two times a day. - pantoprazole DR (PROTONIX) 40 mg tablet Take 1 tablet by mouth daily before breakfast. Take on empty stomach, 1/2 hr before meal. - metOLazone (ZAROXOLYN) 2.5 mg tablet Take 1 tablet by mouth every other day. - warfarin (COUMADIN) 1 mg tablet Take 1 tablet by mouth once daily. Please take daily as directed - furosemide (LASIX) 40 mg tablet Take 1 tablet by mouth once daily. Takes twice daily if with increased edema - atenolol (TENORMIN) 25 mg tablet Take 1 tablet by mouth two times a day. - TRELEGY ELLIPTA 100-62.5-25 mcg inhalation powder Inhale 1 Puff as instructed once daily. - Magnesium 30 mg tablet Take 1 tablet by mouth twice daily. - calcium carbonate/vitamin d3(CALCIUM 600 + D(3) 600 MG (1,500)-200 UNIT TAB) Take one(1) tablet twice daily BY MOUTH. - DAILY MULTIPLE TAB Take one(1) tablet daily BY MOUTH. Problem List As Of Date 09/07/2024 Noted Resolved Osteoarthrosis, unspecified whether generalized* 03/11/2017 AMNESIA (RETROGRADE) TRANSIENT GLOBAL [G45.4] 07/15/2007 06/26/2023 HIGH BLOOD PRESSURE-NO HYPERTENSN [R03.0] 07/15/2007 03/11/2017 INSOMNIA [G47.00] 07/15/2007 TOBACCO USE - PERSONAL HX [Z87.891] 07/15/2007 03/11/2017 Hyperlipidemia [E78.5] 08/20/2007 TIA (transient ischemic attack) [G45.9] 12/16/2007 06/26/2023 Acute gastritis with hemorrhage [K29.01] 10/13/2008 03/11/2017 Acute gastritis without mention of hemorrhage [*10/13/2008 03/11/2017 Hyperlipemia [E78.5] 06/16/2009 02/02/2016 Atrial Fibrillation [I48.91] 06/16/2009 12/16/2014 Sicca syndrome (HCC) [M35.00] 03/11/2017 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] 03/11/2017 Generalized Osteoarthrosis, Involving Hand [M15* Diarrhea [R19.7] 10/03/2009 12/16/2014 Diverticulosis of colon (without mention of hem*10/03/2009 06/26/2023 Internal hemorrhoids without mention of complic*10/03/2009 03/11/2017 Mitral regurgitation [I34.0] 09/02/2011 Right wrist pain [M25.531] 12/15/2012 03/11/2017 Uterovaginal prolapse [N81.4] 07/29/2013 03/11/2017 Cystocele [[id number]] 07/29/2013 06/26/2023 Rotator cuff tear arthropathy of both shoulders*08/24/2013 PMB (postmenopausal bleeding) [N95.0] 09/07/2013 03/11/2017 Atrial fibrillation (HCC) [I48.91] 12/16/2014 Psoas tendinitis of right side [M76.11] 12/05/2015 03/11/2017 Gastroesophageal reflux disease without esophag*03/11/2016 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 *07/08/2016 Bilateral hip pain [M25.551, M25.552] 03/11/2017 S/P lumbar fusion [Z98.1] 06/02/2017 Abrasion of left forearm [S50.812A] 06/26/2017 03/18/2023 Laceration of left forearm [S51.812A] 06/26/2017 03/18/2023 Contusion of left hand [S60.222A] 06/26/2017 03/18/2023 Hematoma of left hip [S70.02XA] 06/26/2017 06/26/2023 Contusion of left knee [S80.02XA] 06/26/2017 03/18/2023 Primary osteoarthritis involving multiple joint*03/24/2018 Centrilobular emphysema (HCC) [J43.2] 04/13/2020 Gastrointestinal hemorrhage associated with ano*11/22/2020 06/26/2023 Iron deficiency anemia due to chronic blood los*11/22/2020 Pinched nerve in neck [G58.9] 01/30/2021 06/05/2021 Simple chronic bronchitis (HCC) [J41.0] 03/26/2021 Nonrheumatic tricuspid valve regurgitation [I36*03/26/2021 Congestive heart failure, unspecified HF chroni*05/12/2023 Acute respiratory failure with hypoxia and hype*05/12/2023 03/17/2024 Pulmonary hypertension due to lung diseases and*06/23/2023 Acquired hypothyroidism [E03.9] 01/23/2022 Rheumatoid arthritis with positive rheumatoid f*09/17/2023 PAH (pulmonary artery hypertension) (HCC) [I27.*07/01/2024 Encounter Status:Closed by MELISSA LUZ on 09/07/24 [place] Observed: 09/04/2024 12:00 AM Status: COMPLETED Source: [facility] Telephone (INTMWS) MALU KITCHEN ([id number]) 1945 F Vendor Date Time Provider Department 09/04/24 ANDRA RODRIGUES INTMWS During your visit today, we recorded the following information about you: Melvi Coelho MA 09/04/2024 10:34 AM Signed Last INR: INR (POCT) 2.3 08/21/2024 Current dose of coumadin is: 1 mg daily. Last date of dose change: 08/21. Previous INR (date and result): 08/21 2.3 Called and spoke to patient verified doing 1 mg daily and with INR meter has to check once weekly in order for insurance to pay. Patient aware routing to child monitor provider but normal limits. DEE Marroquin Jeffrey A, MD 09/06/2024 8:28 AM Signed Vise patient to cont current coumadin doing and recheck this so results come back before the weekend and not over the weekend. Tony Tomlinson MA 09/06/2024 1:05 PM Signed Patient notified and voiced understanding. Tony Tomlinson MA Allergies As of Date: 09/04/2024 Noted Allergy Reaction ADHESIVE TAPE (ROSINS) 08/22/2005 2 - Rash IBUPROFEN 06/06/2014 Comments: Pt on coumadin VICODIN (HYDROCODONE-ACETAMINOPHE*12/15/2014 8 - GI Upset Date Reviewed: 07/01/2024 Reviewed by: Randa Hairston RN - Fully Assessed Reason for Visit: Anticoagulation [8] Order(s):PROTHROMBIN TIME [SQPT] Order #: [id number] Prescriptions as of 09/06/2024 - HYDROcodone-acetaminophen (NORCO) 5-325 mg per tablet Take 1 tablet by mouth every 8 hours as needed for pain for up to 30 days. - dilTIAZem CD (CARDIZEM CD) 180 mg 24 hr capsule Take 1 capsule by mouth once daily. - potassium chloride SR (MICRO-K) 10 mEq CR capsule Take 2 capsules by mouth two times a day. - predniSONE (DELTASONE) 5 mg tablet Take 5 mg by mouth once daily. Dr. Núñez - leflunomide (ARAVA) 10 mg tablet Take 1 tablet by mouth once daily. - levothyroxine (SYNTHROID) 25 mcg tablet Take 1 tablet by mouth daily before breakfast. - empagliflozin (JARDIANCE) 10 mg tablet Take 1 tablet by mouth daily with breakfast. - gabapentin (NEURONTIN) 300 mg capsule Take 1 capsule by mouth two times a day. - pantoprazole DR (PROTONIX) 40 mg tablet Take 1 tablet by mouth daily before breakfast. Take on empty stomach, 1/2 hr before meal. - metOLazone (ZAROXOLYN) 2.5 mg tablet Take 1 tablet by mouth every other day. - warfarin (COUMADIN) 1 mg tablet Take 1 tablet by mouth once daily. Please take daily as directed - furosemide (LASIX) 40 mg tablet Take 1 tablet by mouth once daily. Takes twice daily if with increased edema - atenolol (TENORMIN) 25 mg tablet Take 1 tablet by mouth two times a day. - TRELEGY ELLIPTA 100-62.5-25 mcg inhalation powder Inhale 1 Puff as instructed once daily. - Magnesium 30 mg tablet Take 1 tablet by mouth twice daily. - calcium carbonate/vitamin d3(CALCIUM 600 + D(3) 600 MG (1,500)-200 UNIT TAB) Take one(1) tablet twice daily BY MOUTH. - DAILY MULTIPLE TAB Take one(1) tablet daily BY MOUTH. Problem List As Of Date 09/04/2024 Noted Resolved Osteoarthrosis, unspecified whether generalized* 03/11/2017 AMNESIA (RETROGRADE) TRANSIENT GLOBAL [G45.4] 07/15/2007 06/26/2023 HIGH BLOOD PRESSURE-NO HYPERTENSN [R03.0] 07/15/2007 03/11/2017 INSOMNIA [G47.00] 07/15/2007 TOBACCO USE - PERSONAL HX [Z87.891] 07/15/2007 03/11/2017 Hyperlipidemia [E78.5] 08/20/2007 TIA (transient ischemic attack) [G45.9] 12/16/2007 06/26/2023 Acute gastritis with hemorrhage [K29.01] 10/13/2008 03/11/2017 Acute gastritis without mention of hemorrhage [*10/13/2008 03/11/2017 Hyperlipemia [E78.5] 06/16/2009 02/02/2016 Atrial Fibrillation [I48.91] 06/16/2009 12/16/2014 Sicca syndrome (HCC) [M35.00] 03/11/2017 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] 03/11/2017 Generalized Osteoarthrosis, Involving Hand [M15* Diarrhea [R19.7] 10/03/2009 12/16/2014 Diverticulosis of colon (without mention of hem*10/03/2009 06/26/2023 Internal hemorrhoids without mention of complic*10/03/2009 03/11/2017 Mitral regurgitation [I34.0] 09/02/2011 Right wrist pain [M25.531] 12/15/2012 03/11/2017 Uterovaginal prolapse [N81.4] 07/29/2013 03/11/2017 Cystocele [KDS0829] 07/29/2013 06/26/2023 Rotator cuff tear arthropathy of both shoulders*08/24/2013 PMB (postmenopausal bleeding) [N95.0] 09/07/2013 03/11/2017 Atrial fibrillation (HCC) [I48.91] 12/16/2014 Psoas tendinitis of right side [M76.11] 12/05/2015 03/11/2017 Gastroesophageal reflux disease without esophag*03/11/2016 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 *07/08/2016 Bilateral hip pain [M25.551, M25.552] 03/11/2017 S/P lumbar fusion [Z98.1] 06/02/2017 Abrasion of left forearm [S50.812A] 06/26/2017 03/18/2023 Laceration of left forearm [S51.812A] 06/26/2017 03/18/2023 Contusion of left hand [S60.222A] 06/26/2017 03/18/2023 Hematoma of left hip [S70.02XA] 06/26/2017 06/26/2023 Contusion of left knee [S80.02XA] 06/26/2017 03/18/2023 Primary osteoarthritis involving multiple joint*03/24/2018 Centrilobular emphysema (HCC) [J43.2] 04/13/2020 Gastrointestinal hemorrhage associated with ano*11/22/2020 06/26/2023 Iron deficiency anemia due to chronic blood los*11/22/2020 Pinched nerve in neck [G58.9] 01/30/2021 06/05/2021 Simple chronic bronchitis (HCC) [J41.0] 03/26/2021 Nonrheumatic tricuspid valve regurgitation [I36*03/26/2021 Congestive heart failure, unspecified HF chroni*05/12/2023 Acute respiratory failure with hypoxia and hype*05/12/2023 03/17/2024 Pulmonary hypertension due to lung diseases and*06/23/2023 Acquired hypothyroidism [E03.9] 01/23/2022 Rheumatoid arthritis with positive rheumatoid f*09/17/2023 PAH (pulmonary artery hypertension) (HCC) [I27.*07/01/2024 Encounter Status:Closed by TONY TOMLINSON on 09/06/24 [place] Observed: 08/23/2024 12:00 AM Status: COMPLETED Source: [facility] Telephone (INTMWS) MALU KITCHEN ([id number]) 1945 F Vendor Date Time Provider Department 08/23/24 ANDRA RODRIGUES INTMWS During your visit today, we recorded the following information about you: Zahra Prater LPN 08/23/2024 11:20 AM Signed Last INR: 2.3 08/21/2024 per mdinr Current dose of coumadin is: . Last date of dose change: . 07/12/24 Previous INR (date and result): 08/09/24 do not see that this one was addressed it was 2.5 Additional Clinical Information or narrative: INR goal is 2-3 Message left for p tto return call to a nurse to verify coumadin and pt's findings Zahra Prater LPN 09/01/2024 8:24 AM Signed Pt never called back. Allergies As of Date: 08/23/2024 Noted Allergy Reaction ADHESIVE TAPE (ROSINS) 08/22/2005 2 - Rash IBUPROFEN 06/06/2014 Comments: Pt on coumadin VICODIN (HYDROCODONE-ACETAMINOPHE*12/15/2014 8 - GI Upset Date Reviewed: 07/01/2024 Reviewed by: Randa Hairston, RN - Fully Assessed Reason for Visit: Anticoagulation [8] Order(s):PROTHROMBIN TIME [SQPT] Order #: [id number] PROTHROMBIN TIME [SQPT] Order #: [id number] Prescriptions as of 09/01/2024 - HYDROcodone-acetaminophen (NORCO) 5-325 mg per tablet Take 1 tablet by mouth every 8 hours as needed for pain for up to 30 days. - dilTIAZem CD (CARDIZEM CD) 180 mg 24 hr capsule Take 1 capsule by mouth once daily. - potassium chloride SR (MICRO-K) 10 mEq CR capsule Take 2 capsules by mouth two times a day. - predniSONE (DELTASONE) 5 mg tablet Take 5 mg by mouth once daily. Dr. Núñez - leflunomide (ARAVA) 10 mg tablet Take 1 tablet by mouth once daily. - levothyroxine (SYNTHROID) 25 mcg tablet Take 1 tablet by mouth daily before breakfast. - empagliflozin (JARDIANCE) 10 mg tablet Take 1 tablet by mouth daily with breakfast. - gabapentin (NEURONTIN) 300 mg capsule Take 1 capsule by mouth two times a day. - pantoprazole DR (PROTONIX) 40 mg tablet Take 1 tablet by mouth daily before breakfast. Take on empty stomach, 1/2 hr before meal. - metOLazone (ZAROXOLYN) 2.5 mg tablet Take 1 tablet by mouth every other day. - warfarin (COUMADIN) 1 mg tablet Take 1 tablet by mouth once daily. Please take daily as directed - furosemide (LASIX) 40 mg tablet Take 1 tablet by mouth once daily. Takes twice daily if with increased edema - atenolol (TENORMIN) 25 mg tablet Take 1 tablet by mouth two times a day. - TRELEGY ELLIPTA 100-62.5-25 mcg inhalation powder Inhale 1 Puff as instructed once daily. - Magnesium 30 mg tablet Take 1 tablet by mouth twice daily. - calcium carbonate/vitamin d3(CALCIUM 600 + D(3) 600 MG (1,500)-200 UNIT TAB) Take one(1) tablet twice daily BY MOUTH. - DAILY MULTIPLE TAB Take one(1) tablet daily BY MOUTH. Problem List As Of Date 08/23/2024 Noted Resolved Osteoarthrosis, unspecified whether generalized* 03/11/2017 AMNESIA (RETROGRADE) TRANSIENT GLOBAL [G45.4] 07/15/2007 06/26/2023 HIGH BLOOD PRESSURE-NO HYPERTENSN [R03.0] 07/15/2007 03/11/2017 INSOMNIA [G47.00] 07/15/2007 TOBACCO USE - PERSONAL HX [Z87.891] 07/15/2007 03/11/2017 Hyperlipidemia [E78.5] 08/20/2007 TIA (transient ischemic attack) [G45.9] 12/16/2007 06/26/2023 Acute gastritis with hemorrhage [K29.01] 10/13/2008 03/11/2017 Acute gastritis without mention of hemorrhage [*10/13/2008 03/11/2017 Hyperlipemia [E78.5] 06/16/2009 02/02/2016 Atrial Fibrillation [I48.91] 06/16/2009 12/16/2014 Sicca syndrome (HCC) [M35.00] 03/11/2017 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] 03/11/2017 Generalized Osteoarthrosis, Involving Hand [M15* Diarrhea [R19.7] 10/03/2009 12/16/2014 Diverticulosis of colon (without mention of hem*10/03/2009 06/26/2023 Internal hemorrhoids without mention of complic*10/03/2009 03/11/2017 Mitral regurgitation [I34.0] 09/02/2011 Right wrist pain [M25.531] 12/15/2012 03/11/2017 Uterovaginal prolapse [N81.4] 07/29/2013 03/11/2017 Cystocele [KFE1305] 07/29/2013 06/26/2023 Rotator cuff tear arthropathy of both shoulders*08/24/2013 PMB (postmenopausal bleeding) [N95.0] 09/07/2013 03/11/2017 Atrial fibrillation (HCC) [I48.91] 12/16/2014 Psoas tendinitis of right side [M76.11] 12/05/2015 03/11/2017 Gastroesophageal reflux disease without esophag*03/11/2016 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 *07/08/2016 Bilateral hip pain [M25.551, M25.552] 03/11/2017 S/P lumbar fusion [Z98.1] 06/02/2017 Abrasion of left forearm [S50.812A] 06/26/2017 03/18/2023 Laceration of left forearm [S51.812A] 06/26/2017 03/18/2023 Contusion of left hand [S60.222A] 06/26/2017 03/18/2023 Hematoma of left hip [S70.02XA] 06/26/2017 06/26/2023 Contusion of left knee [S80.02XA] 06/26/2017 03/18/2023 Primary osteoarthritis involving multiple joint*03/24/2018 Centrilobular emphysema (HCC) [J43.2] 04/13/2020 Gastrointestinal hemorrhage associated with ano*11/22/2020 06/26/2023 Iron deficiency anemia due to chronic blood los*11/22/2020 Pinched nerve in neck [G58.9] 01/30/2021 06/05/2021 Simple chronic bronchitis (HCC) [J41.0] 03/26/2021 Nonrheumatic tricuspid valve regurgitation [I36*03/26/2021 Congestive heart failure, unspecified HF chroni*05/12/2023 Acute respiratory failure with hypoxia and hype*05/12/2023 03/17/2024 Pulmonary hypertension due to lung diseases and*06/23/2023 Acquired hypothyroidism [E03.9] 01/23/2022 Rheumatoid arthritis with positive rheumatoid f*09/17/2023 PAH (pulmonary artery hypertension) (HCC) [I27.*07/01/2024 Encounter Status:Closed by ZAHRA PRATER on 09/01/24 [place] Observed: 07/26/2024 12:00 AM Status: COMPLETED Source: [facility] Telephone (INTMWS) MALU KITCHEN ([id number]) 1945 F Vendor Date Time Provider Department 07/26/24 ANDRA RODRIGUES INTMWS During your visit today, we recorded the following information about you: Siobhan Guillen LPN 07/26/2024 11:18 AM Signed Last INR: INR (POCT) 3.0(EXT) 07/23/2024 Current dose of coumadin is: 1 mg daily. Last date of dose change: 07/12/24. Previous INR (date and result): 07/11/24 1.8 Additional Clinical Information or narrative: INR goal is 2-3 Per home MDINR pt is to check this weekly Shefali Rich APRN.CNP 07/30/2024 9:02 AM Signed INR in therapeutic range. Continue current dosing and recheck in 1 week as required by home monitoring company Thank you Shefali Rich APRN.[employer]ING [employer] Tammi Dotson MA 07/30/2024 11:18 AM Signed Patient notified. Allergies As of Date: 07/26/2024 Noted Allergy Reaction ADHESIVE TAPE (ROSINS) 08/22/2005 2 - Rash IBUPROFEN 06/06/2014 Comments: Pt on coumadin VICODIN (HYDROCODONE-ACETAMINOPHE*12/15/2014 8 - GI Upset Date Reviewed: 07/01/2024 Reviewed by: Randa Hairston RN - Fully Assessed Reason for Visit: Anticoagulation [8] Order(s):PROTHROMBIN TIME [SQPT] Order #: [id number] Prescriptions as of 07/30/2024 - dilTIAZem CD (CARDIZEM CD) 180 mg 24 hr capsule Take 1 capsule by mouth once daily. - zolpidem (AMBIEN) 10 mg Take 1 tablet by mouth at bedtime as needed for up to 180 days. - HYDROcodone-acetaminophen (NORCO) 5-325 mg per tablet Take 1 tablet by mouth every 8 hours as needed for pain for up to 30 days. Patient should start on July 11, 2024. - potassium chloride SR (MICRO-K) 10 mEq CR capsule Take 2 capsules by mouth two times a day. - predniSONE (DELTASONE) 5 mg tablet Take 5 mg by mouth once daily. Dr. Núñez - leflunomide (ARAVA) 10 mg tablet Take 1 tablet by mouth once daily. - levothyroxine (SYNTHROID) 25 mcg tablet Take 1 tablet by mouth daily before breakfast. - empagliflozin (JARDIANCE) 10 mg tablet Take 1 tablet by mouth daily with breakfast. - gabapentin (NEURONTIN) 300 mg capsule Take 1 capsule by mouth two times a day. - pantoprazole DR (PROTONIX) 40 mg tablet Take 1 tablet by mouth daily before breakfast. Take on empty stomach, 1/2 hr before meal. - metOLazone (ZAROXOLYN) 2.5 mg tablet Take 1 tablet by mouth every other day. - warfarin (COUMADIN) 1 mg tablet Take 1 tablet by mouth once daily. Please take daily as directed - furosemide (LASIX) 40 mg tablet Take 1 tablet by mouth once daily. Takes twice daily if with increased edema - atenolol (TENORMIN) 25 mg tablet Take 1 tablet by mouth two times a day. - TRELEGY ELLIPTA 100-62.5-25 mcg inhalation powder Inhale 1 Puff as instructed once daily. - Magnesium 30 mg tablet Take 1 tablet by mouth twice daily. - calcium carbonate/vitamin d3(CALCIUM 600 + D(3) 600 MG (1,500)-200 UNIT TAB) Take one(1) tablet twice daily BY MOUTH. - DAILY MULTIPLE TAB Take one(1) tablet daily BY MOUTH. Problem List As Of Date 07/26/2024 Noted Resolved Osteoarthrosis, unspecified whether generalized* 03/11/2017 AMNESIA (RETROGRADE) TRANSIENT GLOBAL [G45.4] 07/15/2007 06/26/2023 HIGH BLOOD PRESSURE-NO HYPERTENSN [R03.0] 07/15/2007 03/11/2017 INSOMNIA [G47.00] 07/15/2007 TOBACCO USE - PERSONAL HX [Z87.891] 07/15/2007 03/11/2017 Hyperlipidemia [E78.5] 08/20/2007 TIA (transient ischemic attack) [G45.9] 12/16/2007 06/26/2023 Acute gastritis with hemorrhage [K29.01] 10/13/2008 03/11/2017 Acute gastritis without mention of hemorrhage [*10/13/2008 03/11/2017 Hyperlipemia [E78.5] 06/16/2009 02/02/2016 Atrial Fibrillation [I48.91] 06/16/2009 12/16/2014 Sicca syndrome (HCC) [M35.00] 03/11/2017 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] 03/11/2017 Generalized Osteoarthrosis, Involving Hand [M15* Diarrhea [R19.7] 10/03/2009 12/16/2014 Diverticulosis of colon (without mention of hem*10/03/2009 06/26/2023 Internal hemorrhoids without mention of complic*10/03/2009 03/11/2017 Mitral regurgitation [I34.0] 09/02/2011 Right wrist pain [M25.531] 12/15/2012 03/11/2017 Uterovaginal prolapse [N81.4] 07/29/2013 03/11/2017 Cystocele [ZBM6724] 07/29/2013 06/26/2023 Rotator cuff tear arthropathy of both shoulders*08/24/2013 PMB (postmenopausal bleeding) [N95.0] 09/07/2013 03/11/2017 Atrial fibrillation (HCC) [I48.91] 12/16/2014 Psoas tendinitis of right side [M76.11] 12/05/2015 03/11/2017 Gastroesophageal reflux disease without esophag*03/11/2016 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 *07/08/2016 Bilateral hip pain [M25.551, M25.552] 03/11/2017 S/P lumbar fusion [Z98.1] 06/02/2017 Abrasion of left forearm [S50.812A] 06/26/2017 03/18/2023 Laceration of left forearm [S51.812A] 06/26/2017 03/18/2023 Contusion of left hand [S60.222A] 06/26/2017 03/18/2023 Hematoma of left hip [S70.02XA] 06/26/2017 06/26/2023 Contusion of left knee [S80.02XA] 06/26/2017 03/18/2023 Primary osteoarthritis involving multiple joint*03/24/2018 Centrilobular emphysema (HCC) [J43.2] 04/13/2020 Gastrointestinal hemorrhage associated with ano*11/22/2020 06/26/2023 Iron deficiency anemia due to chronic blood los*11/22/2020 Pinched nerve in neck [G58.9] 01/30/2021 06/05/2021 Simple chronic bronchitis (HCC) [J41.0] 03/26/2021 Nonrheumatic tricuspid valve regurgitation [I36*03/26/2021 Congestive heart failure, unspecified HF chroni*05/12/2023 Acute respiratory failure with hypoxia and hype*05/12/2023 03/17/2024 Pulmonary hypertension due to lung diseases and*06/23/2023 Acquired hypothyroidism [E03.9] 01/23/2022 Rheumatoid arthritis with positive rheumatoid f*09/17/2023 PAH (pulmonary artery hypertension) (HCC) [I27.*07/01/2024 Encounter Status:Closed by TAMMI DOTSON on 07/30/24 CNPN Observed: 07/12/2024 12:00 AM Status: COMPLETED Source: [facility] Telephone (INTMWS) MALU KITCHEN ([id number]) 1945 F Vendor Date Time Provider Department 07/12/24 ANDRA RODRIGUES INTMWS During your visit today, we recorded the following information about you: Zahra Prater LPN 07/12/2024 9:48 AM Signed Last INR: 1.8 07/11/2024 per home MDINR Current dose of coumadin is: . Last date of dose change: 01/09/24. Previous INR (date and result): 06/27/24 was 2.4 Additional Clinical Information or narrative: INR goal is 2-3 Per home MDINR pt is to check this weekly. Message left for pt to return call to a nurse to verify coumadin dose and pt findings. Sonia Perez RN 07/12/2024 11:03 AM Signed Patient calls back and states that she had right heart denilson done on 07/01. Patient reports that she was off of coumadin 3 days prior to right heart denilson. Patient reports that she went back to taking 1 mg coumadin daily. Current dose 1 mg Coumadin daily. No changes in diet or medication except the 3 days coumadin was held prior to heart denilson. No signs of any abnormal bleeding or bruising. Shefali Rich APRN.CNP 07/12/2024 12:28 PM Signed Continue current dose and recheck in 1 week. Thank you Shefali Rich APRN.Tammi Collado MA 07/12/2024 2:05 PM Signed Patient notified. Allergies As of Date: 07/12/2024 Noted Allergy Reaction ADHESIVE TAPE (ROSINS) 08/22/2005 2 - Rash IBUPROFEN 06/06/2014 Comments: Pt on coumadin VICODIN (HYDROCODONE-ACETAMINOPHE*12/15/2014 8 - GI Upset Date Reviewed: 07/01/2024 Reviewed by: Randa Hairston RN - Fully Assessed Reason for Visit: Anticoagulation [8] Order(s):PROTHROMBIN TIME [SQPT] Order #: [id number] Prescriptions as of 07/12/2024 - HYDROcodone-acetaminophen (NORCO) 5-325 mg per tablet Take 1 tablet by mouth every 8 hours as needed for pain for up to 30 days. Patient should start on July 11, 2024. - potassium chloride SR (MICRO-K) 10 mEq CR capsule Take 2 capsules by mouth two times a day. - predniSONE (DELTASONE) 5 mg tablet Take 5 mg by mouth once daily. Dr. Núñez - leflunomide (ARAVA) 10 mg tablet Take 1 tablet by mouth once daily. - levothyroxine (SYNTHROID) 25 mcg tablet Take 1 tablet by mouth daily before breakfast. - zolpidem (AMBIEN) 10 mg Take 1 tablet by mouth at bedtime as needed for up to 90 days. - empagliflozin (JARDIANCE) 10 mg tablet Take 1 tablet by mouth daily with breakfast. - gabapentin (NEURONTIN) 300 mg capsule Take 1 capsule by mouth two times a day. - pantoprazole DR (PROTONIX) 40 mg tablet Take 1 tablet by mouth daily before breakfast. Take on empty stomach, 1/2 hr before meal. - metOLazone (ZAROXOLYN) 2.5 mg tablet Take 1 tablet by mouth every other day. - dilTIAZem CD (CARDIZEM CD) 180 mg 24 hr capsule Take 1 capsule by mouth once daily. - warfarin (COUMADIN) 1 mg tablet Take 1 tablet by mouth once daily. Please take daily as directed - furosemide (LASIX) 40 mg tablet Take 1 tablet by mouth once daily. Takes twice daily if with increased edema - atenolol (TENORMIN) 25 mg tablet Take 1 tablet by mouth two times a day. - TRELEGY ELLIPTA 100-62.5-25 mcg inhalation powder Inhale 1 Puff as instructed once daily. - Magnesium 30 mg tablet Take 1 tablet by mouth twice daily. - calcium carbonate/vitamin d3(CALCIUM 600 + D(3) 600 MG (1,500)-200 UNIT TAB) Take one(1) tablet twice daily BY MOUTH. - DAILY MULTIPLE TAB Take one(1) tablet daily BY MOUTH. Problem List As Of Date 07/12/2024 Noted Resolved Osteoarthrosis, unspecified whether generalized* 03/11/2017 AMNESIA (RETROGRADE) TRANSIENT GLOBAL [G45.4] 07/15/2007 06/26/2023 HIGH BLOOD PRESSURE-NO HYPERTENSN [R03.0] 07/15/2007 03/11/2017 INSOMNIA [G47.00] 07/15/2007 TOBACCO USE - PERSONAL HX [Z87.891] 07/15/2007 03/11/2017 Hyperlipidemia [E78.5] 08/20/2007 TIA (transient ischemic attack) [G45.9] 12/16/2007 06/26/2023 Acute gastritis with hemorrhage [K29.01] 10/13/2008 03/11/2017 Acute gastritis without mention of hemorrhage [*10/13/2008 03/11/2017 Hyperlipemia [E78.5] 06/16/2009 02/02/2016 Atrial Fibrillation [I48.91] 06/16/2009 12/16/2014 Sicca syndrome (HCC) [M35.00] 03/11/2017 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] 03/11/2017 Generalized Osteoarthrosis, Involving Hand [M15* Diarrhea [R19.7] 10/03/2009 12/16/2014 Diverticulosis of colon (without mention of hem*10/03/2009 06/26/2023 Internal hemorrhoids without mention of complic*10/03/2009 03/11/2017 Mitral regurgitation [I34.0] 09/02/2011 Right wrist pain [M25.531] 12/15/2012 03/11/2017 Uterovaginal prolapse [N81.4] 07/29/2013 03/11/2017 Cystocele [ZHO2654] 07/29/2013 06/26/2023 Rotator cuff tear arthropathy of both shoulders*08/24/2013 PMB (postmenopausal bleeding) [N95.0] 09/07/2013 03/11/2017 Atrial fibrillation (HCC) [I48.91] 12/16/2014 Psoas tendinitis of right side [M76.11] 12/05/2015 03/11/2017 Gastroesophageal reflux disease without esophag*03/11/2016 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 *07/08/2016 Bilateral hip pain [M25.551, M25.552] 03/11/2017 S/P lumbar fusion [Z98.1] 06/02/2017 Abrasion of left forearm [S50.812A] 06/26/2017 03/18/2023 Laceration of left forearm [S51.812A] 06/26/2017 03/18/2023 Contusion of left hand [S60.222A] 06/26/2017 03/18/2023 Hematoma of left hip [S70.02XA] 06/26/2017 06/26/2023 Contusion of left knee [S80.02XA] 06/26/2017 03/18/2023 Primary osteoarthritis involving multiple joint*03/24/2018 Centrilobular emphysema (HCC) [J43.2] 04/13/2020 Gastrointestinal hemorrhage associated with ano*11/22/2020 06/26/2023 Iron deficiency anemia due to chronic blood los*11/22/2020 Pinched nerve in neck [G58.9] 01/30/2021 06/05/2021 Simple chronic bronchitis (HCC) [J41.0] 03/26/2021 Nonrheumatic tricuspid valve regurgitation [I36*03/26/2021 Congestive heart failure, unspecified HF chroni*05/12/2023 Acute respiratory failure with hypoxia and hype*05/12/2023 03/17/2024 Pulmonary hypertension due to lung diseases and*06/23/2023 Acquired hypothyroidism [E03.9] 01/23/2022 Rheumatoid arthritis with positive rheumatoid f*09/17/2023 PAH (pulmonary artery hypertension) (HCC) [I27.*07/01/2024 Encounter Status:Closed by TAMMI DOTSON on 07/12/24 OPERATIVE NO Observed: 07/01/2024 1:01 PM Status: COMPLETED Source: [facility] HNO ID: [id number] Author: ROBIN WHITEHEAD MD Service: Pulmonary Disease Author Type: Physician Type: Operative Report Filed: 07/01/2024 14:05 Note Text: Patient Name: Malu Kitchen Patient Date of Procedure: July 01, 2024 Time of Procedure: 1:59 PM UNIVERSAL PROTOCOL / SAFETY CHECKLIST Procedure to be performed: Right Heart Catheterization Sign in Communication: completed Time Out: Team Confirms the Correct Patient, Correct Procedure, Correct Site and Site Marking, Correct Position (if applicable). Time: 1:59 PM Affirmation of Time Out: YES Sign Out Discussion: Completed Procedure start time: 1:15 PM Procedure end time: 1:45 PM Staff involved: Robin Whitehead MD Procedure(s): Right Heart Catheterization. Right Heart Catheterization Indications: Evaluation of Pulmonary Hypertension / Disease of Pulmonary Circulation Pre Procedure Diagnosis: Pulmonary Hypertension Post Procedure Diagnosis: Combined pre-and postcapillary Pulmonary hypertension PH Medications: None Diuretics : Lasix 40 mg daily (BID prn) Access site: R Internal jugular vein [place] size: 7.5 F. Anesthesia: Lidocaine 1% Procedure Narrative: Consent was obtained. Time out taken. 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 Wire was noted to be located in the SVC under fluoroscopy. A Calhoun-Mingo catheter was advanced to RIGHT pulmonary artery without difficulties (RA, RV, PA pressures were measured). Wedge was obtained and confirmed to be appropriate by fluoroscopy (stable catheter) and blood gas analysis. Mixed venous blood was obtained for indirect Cassandra determination. CO was determined by thermodilution and indirect Cassandra methodology. Additional Maneuvers: Vasoreactive challenge was performed using 40ppm of inhaled Nitric Oxide over 5 minutes. All hemodynamics were remeasured including cardiac output/index. Disposition: Discharge Home RHC determinations Determinations Result Units Rhythm A.Fib Inspired fraction of oxygen 21.00 % Oxygen flow 0.00 L/min SpO2 98.00 % Systolic BP 110.00 mmHg Diastolic BP 70.00 mmHg Mean BP 83.33 mmHg Heart Rate 70.00 bpm Height 148.80 cm Weight 54.90 Kg Body surface area 1.48 m2 Body mass index 24.80 kg/m2 Right atrial pressure (mean) 11.00 mmHg Right atrial pressure (mean) peak v wave (end-expiration) NA mmHg Right ventricular systolic pressure 60.00 mmHg Right ventricular diastolic pressure 14.00 mmHg Systolic pulmonary artery pressure 60.00 mmHg Mean pulmonary artery pressure 37.00 mmHg Diastolic pulmonary artery pressure 25.00 mmHg Pumonary artery pulse pressure 35.00 mmHg Pulmonary artery occlusion pressure (mean) 23.00 mmHg Pulmonary artery occlusion pressure (end-expiration) mid a wave 21.00 mmHg Pulmonary artery occlusion pressure (end-expiration) peak v wave 42.00 Diastolic pulmonary gradient 4.00 mmHg Transpulmonary gradient 16.00 mmHg Pulmonary artery capacitance 1.24 mL/mmHg Cardiac output (thermodilution) 3.04 L/min Cardiac index (thermodilution) 2.05 L/min/m2 Cardiac output (indirect CASSANDRA) 3.45 L/min Cardiac index (indirect CASSANDRA) 2.33 L/min/m2 Systemic vascular resistance 1903.51 dynes/sec/cm5 Stroke volume 43.43 mL Stroke volume index 29.31 mL/m2 Right ventricular stroke work index 10.36 g*m/m2 Pulmonary vascular resistance 5.26 Wood Units Hemoglobin (mixed venous) 11.50 g/dL Arterial oxyhemoglobin 98.00 % Mixed venous oxyhemoglobin 63.70 % Lactic acid (arterial) NA mmol/L Abbreviated version Right atrial pressure (mean) 11.00 mmHg Mean pulmonary artery pressure 37.00 mmHg Pulmonary artery occlusion pressure (end-expiration) mid a wave 21.00 mmHg Cardiac index (thermodilution) 2.05 L/min/m2 Pulmonary vascular resistance 5.26 Wood Units Mixed venous oxyhemoglobin 63.70 % Saturations: SpO2 98.00 % ScvO2 63.70 % SvO2 (RA) 63.00 % NITRIC OXIDE CHALLENGE (Inhaled NO 40 ppm / 5 mins): Systolic pulmonary artery pressure 68.00 mmHg Mean pulmonary artery pressure 41.00 mmHg Diastolic pulmonary artery pressure 28.00 mmHg Pulmonary arterial occlusion pressure (end-expiratory) 20.00 Pulmonary arterial occlusion pressure (mean) 24.00 L/min Pulmonary arterial occlusion pressure (V-wave) 47.00 mmHg Cardiac Output 3.20 L/min Cardiac Index 2.16 L/min/m2 Pulmonary Vascular Resistance 6.56 L/min/m2 WAVEFORMS: Right Atrial Pressure: Pulmonary Artery Pressure: PAWP: RV PullBack: -------- Post-NO PAWP: Estimated Blood Loss: Scant Specimens: Mixed venous blood gases. Complications: None. Introducer removed without complications. Pressure applied for 10 minutes. No Bleeding Condition of Patient After Procedure: Stable Summary: Combined Pre-and Postcapillary Pulmonary Hypertension (Set Up / Operator-PH) with Reduced cardiac index. Negative nitric oxide response. Elevated PAWP with marked V-waves noted indicative of significantly impaired L-atrial filling/LHD (consistent with diastolic disease/LA dilatation/2+ MR noted on echocardiogram). AFib during case with optimal rate control Plan: F/U with Dr Whitehead and cardiology clinic. Low salt in the diet. Optimization of diuretic regimen. Defer use of pulmonary vasodilator therapy given significantly increased L-sided pressures and underlying cardiac/pulmonary comorbidities (risk likely outweighs benefit) CNPN Observed: 06/28/2024 12:00 AM Status: COMPLETED Source: [facility] Telephone (INTMWS) MALU KITCHEN ([id number]) 1945 F Vendor Date Time Provider Department 06/28/24 ANDRA RODRIGUES INTMWS During your visit today, we recorded the following information about you: Zahra Prater LPN 06/28/2024 9:39 AM Signed Last INR: 2.4 06/27/2024 INR from [facility] home check Current dose of coumadin is: 1mg daily . Last date of dose change: .01/09/24 Previous INR (date and result): 06/12/24 was 2.2 Additional Clinical Information or narrative: INR goal is 2-3. Pt says Dr. Núñez started her on prednisone about a month ago. She checks her INR weekly per home INR protocol. Andra Rodrigues MD 06/28/2024 4:32 PM Signed Cont the same dose and frequency of checking Andra Quevedo MD, Rachel L, MA 06/28/2024 4:39 PM Signed Patient notified and verbalized understanding. Dino Perez MA Allergies As of Date: 06/28/2024 Noted Allergy Reaction ADHESIVE TAPE (ROSINS) 08/22/2005 2 - Rash IBUPROFEN 06/06/2014 Comments: Pt on coumadin VICODIN (HYDROCODONE-ACETAMINOPHE*12/15/2014 8 - GI Upset Date Reviewed: 06/22/2024 Reviewed by: Dino Perez MA - Fully Assessed Reason for Visit: Anticoagulation [8] Order(s):PROTHROMBIN TIME [SQPT] Order #: [id number] Prescriptions as of 06/28/2024 - predniSONE (DELTASONE) 5 mg tablet Take 5 mg by mouth once daily. Dr. Núñez - leflunomide (ARAVA) 10 mg tablet Take 1 tablet by mouth once daily. - HYDROcodone-acetaminophen (NORCO) 5-325 mg per tablet Take 1 tablet by mouth every 8 hours as needed for pain for up to 30 days. - levothyroxine (SYNTHROID) 25 mcg tablet Take 1 tablet by mouth daily before breakfast. - zolpidem (AMBIEN) 10 mg Take 1 tablet by mouth at bedtime as needed for up to 90 days. - empagliflozin (JARDIANCE) 10 mg tablet Take 1 tablet by mouth daily with breakfast. - gabapentin (NEURONTIN) 300 mg capsule Take 1 capsule by mouth two times a day. - pantoprazole DR (PROTONIX) 40 mg tablet Take 1 tablet by mouth daily before breakfast. Take on empty stomach, 1/2 hr before meal. - metOLazone (ZAROXOLYN) 2.5 mg tablet Take 1 tablet by mouth every other day. - dilTIAZem CD (CARDIZEM CD) 180 mg 24 hr capsule Take 1 capsule by mouth once daily. - potassium chloride SR (MICRO-K) 10 mEq CR capsule Take 2 capsules by mouth two times a day. - warfarin (COUMADIN) 1 mg tablet Take 1 tablet by mouth once daily. Please take daily as directed - furosemide (LASIX) 40 mg tablet Take 1 tablet by mouth once daily. Takes twice daily if with increased edema - atenolol (TENORMIN) 25 mg tablet Take 1 tablet by mouth two times a day. - TRELEGY ELLIPTA 100-62.5-25 mcg inhalation powder Inhale 1 Puff as instructed once daily. - Magnesium 30 mg tablet Take 1 tablet by mouth twice daily. - calcium carbonate/vitamin d3(CALCIUM 600 + D(3) 600 MG (1,500)-200 UNIT TAB) Take one(1) tablet twice daily BY MOUTH. - DAILY MULTIPLE TAB Take one(1) tablet daily BY MOUTH. Problem List As Of Date 06/28/2024 Noted Resolved Osteoarthrosis, unspecified whether generalized* 03/11/2017 AMNESIA (RETROGRADE) TRANSIENT GLOBAL [G45.4] 07/15/2007 06/26/2023 HIGH BLOOD PRESSURE-NO HYPERTENSN [R03.0] 07/15/2007 03/11/2017 INSOMNIA [G47.00] 07/15/2007 TOBACCO USE - PERSONAL HX [Z87.891] 07/15/2007 03/11/2017 Hyperlipidemia [E78.5] 08/20/2007 TIA (transient ischemic attack) [G45.9] 12/16/2007 06/26/2023 Acute gastritis with hemorrhage [K29.01] 10/13/2008 03/11/2017 Acute gastritis without mention of hemorrhage [*10/13/2008 03/11/2017 Hyperlipemia [E78.5] 06/16/2009 02/02/2016 Atrial Fibrillation [I48.91] 06/16/2009 12/16/2014 Sicca syndrome (HCC) [M35.00] 03/11/2017 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] 03/11/2017 Generalized Osteoarthrosis, Involving Hand [M15* Diarrhea [R19.7] 10/03/2009 12/16/2014 Diverticulosis of colon (without mention of hem*10/03/2009 06/26/2023 Internal hemorrhoids without mention of complic*10/03/2009 03/11/2017 Mitral regurgitation [I34.0] 09/02/2011 Right wrist pain [M25.531] 12/15/2012 03/11/2017 Uterovaginal prolapse [N81.4] 07/29/2013 03/11/2017 Cystocele [ZTJ0352] 07/29/2013 06/26/2023 Rotator cuff tear arthropathy of both shoulders*08/24/2013 PMB (postmenopausal bleeding) [N95.0] 09/07/2013 03/11/2017 Atrial fibrillation (HCC) [I48.91] 12/16/2014 Psoas tendinitis of right side [M76.11] 12/05/2015 03/11/2017 Gastroesophageal reflux disease without esophag*03/11/2016 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 *07/08/2016 Bilateral hip pain [M25.551, M25.552] 03/11/2017 S/P lumbar fusion [Z98.1] 06/02/2017 Abrasion of left forearm [S50.812A] 06/26/2017 03/18/2023 Laceration of left forearm [S51.812A] 06/26/2017 03/18/2023 Contusion of left hand [S60.222A] 06/26/2017 03/18/2023 Hematoma of left hip [S70.02XA] 06/26/2017 06/26/2023 Contusion of left knee [S80.02XA] 06/26/2017 03/18/2023 Primary osteoarthritis involving multiple joint*03/24/2018 Centrilobular emphysema (HCC) [J43.2] 04/13/2020 Gastrointestinal hemorrhage associated with ano*11/22/2020 06/26/2023 Iron deficiency anemia due to chronic blood los*11/22/2020 Pinched nerve in neck [G58.9] 01/30/2021 06/05/2021 Simple chronic bronchitis (HCC) [J41.0] 03/26/2021 Nonrheumatic tricuspid valve regurgitation [I36*03/26/2021 Congestive heart failure, unspecified HF chroni*05/12/2023 Acute respiratory failure with hypoxia and hype*05/12/2023 03/17/2024 Pulmonary hypertension due to lung diseases and*06/23/2023 Acquired hypothyroidism [E03.9] 01/23/2022 Rheumatoid arthritis with positive rheumatoid f*09/17/2023 Encounter Status:Closed by DINO PEREZ on 06/28/24 PROGRESS Observed: 06/22/2024 10:44 AM Status: COMPLETED Source: [facility] HNO ID: [id number] Author: ANDRA RODRIGUES MD Service: ? Author Type: Physician Type: Progress Notes Filed: 06/22/2024 17:31 Note Text: Reason for Visit Patient presents with: Follow Up Malu Kitchen is a 77 year old female who presents here today for Above Complaints.. Health Maintenance SPIROMETRY ALPHA-1 ANTITRYPSIN DEFICIENCY SCREENING SHINGRIX VACCINE(2 of 3) DTAP,TDAP,TD(2 - Td or Tdap) ADVANCE DIRECTIVE DISCUSSION HPI Malu is a 78-year-old woman with a past medical history of COPD, A-fib, hypothyroidism, reflux disease, CKD rheumatoid arthritis significant hip osteoarthritis and gait abnormality as a result of it. She also has diastolic dysfunction and heart failure preserved ejection fraction. Last year she was let go from her work , down sized her home, as she could not take care of the 2 acres of land, moved closer to use where she needs to go. Patient is busy unpacking and working on her house. She was recently evaluated for shortness of breath and dyspnea on exertion with the consideration of pulmonary hypertension. She is still limping but is glad she does not have to work. She is sleeping well with ambien, gets around 8 hours of sleep at night, she has to get up early sometimes. Hypothyroidism. She is doing well on her current dose of Synthroid. Denies fatigue, cold intolerance and swelling in feet. TSH recently checked and normal. CKD: Stage 3, recent labs reviewed, shows GFR is stable, not significantly changed from previous labs. Discussed the importance of staying off the NSAIDs naproxen, motrin, brufen, aleve etc and contrast., adequate hydration Keeping blood pressure under control. Gerd: to continue the protonix and she is doing well with it. Uses vicodin 2 tabs a day in the morning and feels lumbered up. She is not dizzy or constipated with the medication. Confused. She is on the Arava for her RHEUMATOID ARTHRITIS. The ASCVD Risk score (Juan DK, et al., 2019) failed to calculate for the following reasons: The patient has a prior [place] or stroke diagnosis No problem-specific Assessment AND Plan notes found for this encounter. PAST MEDICAL HISTORY Diagnosis Date Acquired hypothyroidism 01/23/2022 Acute gastritis without mention of hemorrhage Acute, but ill-defined, cerebrovascular disease AMNESIA (RETROGRADE) TRANSIENT GLOBAL 07/15/2007 This was along with the TIA that she had. Atrial fibrillation (HCC) Basal cell carcinoma 12/16/2023 scalp Bleeding gastrointestinal 09/2020 Centrilobular emphysema (HCC) 04/13/2020 Patient had PFTs in 2019 and was found to have moderately severe large air way vent defect, which was irreversible. This was associated with trapping of air And mild reduction in the diffusion capacity. She has more that 60 pack years smoking, but stopped in 2000 She is on Anoro ellipta and is doing well, good exercise tolerance does the bike mostly. Does good exercise at work, around 18,000 Complete rupture of rotator cuff 2006 Congestive heart failure, unspecified HF chronicity, unspecified heart failure type (HCC) 05/12/2023 Cystocele 07/29/2013 Diarrhea Diverticulosis of colon (without mention of hemorrhage) Gastrointestinal hemorrhage associated with anorectal source 11/22/2020 Was admitted in September 2020 with the red blood per rectum. At that time INR was 1.7 as she is on Coumadin, her hemoglobin was stable so no blood transfusion was required. She had a CT scan and contrast and was given IV fluids after which she developed some shortness of breath and was given Lasix and she was sent home the next day after an echo. 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 Chao at [facility] [place]. She is on trilogy Ellipta. She has quit smoking in the past we encouraged her to continue to quit smoking. Stroke (HCC) x 2 last stroke 02/14/2016 TIA (transient ischemic attack) 12/16/2007 Unspecified inflammatory polyarthropathy PAST SURGICAL HISTORY Procedure Laterality Date ARTHRP ACETBLR/PROX FEM PROSTC AGRFT/ALGRFT 02/20/2015 Hip replacement, total COLONOSCOPY GEN ANES 11/22/2020 COLONOSCOPY W/BIOPSY SINGLE/MULTIPLE 10/03/2009 EGD 11/22/2020 EGD TRANSORAL BIOPSY SINGLE/MULTIPLE 10/13/2008 minimal gastritis HEART CATHETERIZATION 2009 OPEN REPAIR OF ROTATOR CUFF ACUTE 1996, 2001,2002 Rotator cuff repair-right shoulder OPEN REPAIR OF ROTATOR CUFF ACUTE 2006 Left PAST SURGICAL HISTORY OF 1998 L5-DIONICIO Spinal Fusion PAST SURGICAL HISTORY OF right foot x2, spur, neuroma PAST SURGICAL HISTORY OF 1967 cyst removed right breast PAST SURGICAL HISTORY OF 05/05/2014 Anterior colporrhaphy, Vaginal vault suspension per SUPeR trial ; Cystourethroscopy PAST SURGICAL HISTORY OF 10/2013 left shoulder replacement PAST SURGICAL HISTORY OF Right 09/21/2018 right reverse total shoulder arthroplasty [facility] REVISE MEDIAN N/CARPAL TUNNEL SURG Right 01/15/2024 Right Carpal tunnel release WRIST SURGERY HX Left 2018 removed 3 bones in wrist FAMILY HISTORY Problem Relation Age of Onset Heart Mother [place] Heart Father [place] Diabetes Maternal Uncle Headache Sister Social History Tobacco Use Smoking status: Former Current packs/day: 0.00 Average packs/day: 2.0 packs/day for 30.0 years (60.0 ttl pk-yrs) Types: Cigarettes Start date: 08/22/1970 Quit date: 08/22/2000 Years since quittin.8 Smokeless tobacco: Never Vaping Use Vaping status: Never Used Substance Use Topics Alcohol use: Not Currently Comment: very occasional Drug use: Not Currently Types: Marijuana Past medical history, appointments, medications, allergies reviewed. Pertinent Lab/Diagnostic Studies are reviewed and discussed today Current Outpatient Medications: predniSONE (DELTASONE) 5 mg tablet HYDROcodone-acetaminophen (NORCO) 5-325 mg per tablet levothyroxine (SYNTHROID) 25 mcg tablet zolpidem (AMBIEN) 10 mg empagliflozin (JARDIANCE) 10 mg tablet gabapentin (NEURONTIN) [address] (PROTONIX) 40 mg tablet metOLazone (ZAROXOLYN) 2.5 mg tablet dilTIAZem CD (CARDIZEM CD) 180 mg 24 hr capsule potassium chloride SR (MICRO-K) 10 mEq CR capsule warfarin (COUMADIN) 1 mg tablet furosemide (LASIX) 40 mg tablet atenolol (TENORMIN) 25 mg tablet TRELEGY ELLIPTA 100-62.5-25 mcg inhalation powder COMPOUNDED PRESCRIPTION Magnesium 30 mg tablet calcium carbonate/vitamin d3(CALCIUM 600 + D(3) 600 MG (1,500)-200 UNIT TAB) DAILY MULTIPLE TAB Review of Systems CONSTITUTIONAL: No fevers, chills night sweats, unintended weight loss CARDIOVASCULAR: No chest pain, dyspnea, palpitations, orthopnea, PND, ankle edema. PULM: No dyspnea, unexplained cough. GI: No dysphagia/odynophagia, problematic reflux, constipation, diarrhea, changes in stool habits, hematochezia, melena. : No new urinary complaints, including dysuria, gross hematuria or pyuria. NEURO: No new balance problems, peripheral weakness/paresthesias or numbness of concern. Physical Exam BP 122/70 Pulse 62 Wt 54.9 kg (121 lb) BMI 24.79 kg/m? General appearance: Well appearing, alert, in no acute distress, well nourished. Skin: Skin color, texture, turgor normal, no suspicious rashes or lesions Head: Normocephalic, no masses, lesions, tenderness or abnormalities Eyes: Anicteric sclera. Pupils are equally round and reactive to light. Extraocular movements are intact. Lungs: Lungs clear to auscultation. No wheezing, rhonchi, rales Heart: RRR without murmur, gallop, or rubs. Weight: She walks with a significant limp which is more antalgic. ASSESSMENT/PLAN: 1. Pure hypercholesterolemia - ICD9: 272.0, ICD10: E78.00 (primary diagnosis) LDL is elevated but HDL is 73 and LDL is 120. She does not have coronary artery disease but has diastolic dysfunction. She may benefit from a statin but she is over the age of 77. 2. Longstanding persistent atrial fibrillation (HCC) - ICD9: 427.31, ICD10: I48.11 Continue the warfarin and beta-blockers 3. Congestive heart failure, unspecified HF chronicity, unspecified heart failure type (HCC) - ICD9: 428.0, ICD10: I50.9 Likely euvolemic 4. Acquired hypothyroidism - ICD9: 244.9, ICD10: E03.9 - Instructed patient on importance of taking on an empty stomach either first thing in the morning or at bedtime. 5. Centrilobular emphysema (HCC) - ICD9: 492.8, ICD10: J43.2 Continue on her inhalers 6. Gastroesophageal reflux disease without esophagitis - ICD9: 530.81, ICD10: K21.9 - Discussed lifestyle modifications including losing weight, limiting caffeine, no meals three hours before sleep, and head of bed elevation 7. Rheumatoid arthritis with positive rheumatoid factor, involving unspecified site (HCC) - ICD9: 714.0, ICD10: M05.9 She is on the Arava to continue Andra Rodrigues MD CNOV Observed: 06/22/2024 10:00 AM Status: COMPLETED Source: [facility] Office Visit (INTMWS) MALU KITCHEN ([id number]) 1945 F Vendor Date Time Provider Department 06/22/24 10:00 AM ANDRA RODRIGUES INTMWS During your visit today, we recorded the following information about you: Pulse Blood pressure Weight 62/minute 122/70 54.9 kg Andra Rodrigues MD 06/22/2024 5:31 PM Signed Reason for Visit Patient presents with: Follow Up Malu Kitchen is a 77 year old female who presents here today for Above Complaints.. Health Maintenance SPIROMETRY ALPHA-1 ANTITRYPSIN DEFICIENCY SCREENING SHINGRIX VACCINE(2 of 3) DTAP,TDAP,TD(2 - Td or Tdap) ADVANCE DIRECTIVE DISCUSSION HPI Malu is a 78-year-old woman with a past medical history of COPD, A-fib, hypothyroidism, reflux disease, CKD rheumatoid arthritis significant hip osteoarthritis and gait abnormality as a result of it. She also has diastolic dysfunction and heart failure preserved ejection fraction. Last year she was let go from her work , down sized her home, as she could not take care of the 2 acres of land, moved closer to use where she needs to go. Patient is busy unpacking and working on her house. She was recently evaluated for shortness of breath and dyspnea on exertion with the consideration of pulmonary hypertension. She is still limping but is glad she does not have to work. She is sleeping well with ambien, gets around 8 hours of sleep at night, she has to get up early sometimes. Hypothyroidism. She is doing well on her current dose of Synthroid. Denies fatigue, cold intolerance and swelling in feet. TSH recently checked and normal. CKD: Stage 3, recent labs reviewed, shows GFR is stable, not significantly changed from previous labs. Discussed the importance of staying off the NSAIDs naproxen, motrin, brufen, aleve etc and contrast., adequate hydration Keeping blood pressure under control. Gerd: to continue the protonix and she is doing well with it. Uses vicodin 2 tabs a day in the morning and feels lumbered up. She is not dizzy or constipated with the medication. Confused. She is on the Arava for her RHEUMATOID ARTHRITIS. The ASCVD Risk score (Juan FRASER, et al., 2019) failed to calculate for the following reasons: The patient has a prior [place] or stroke diagnosis No problem-specific Assessment AND Plan notes found for this encounter. PAST MEDICAL HISTORY Diagnosis Date Acquired hypothyroidism 01/23/2022 Acute gastritis without mention of hemorrhage Acute, but ill-defined, cerebrovascular disease AMNESIA (RETROGRADE) TRANSIENT GLOBAL 07/15/2007 This was along with the TIA that she had. Atrial fibrillation (HCC) Basal cell carcinoma 12/16/2023 scalp Bleeding gastrointestinal 09/2020 Centrilobular emphysema (HCC) 04/13/2020 Patient had PFTs in 2019 and was found to have moderately severe large air way vent defect, which was irreversible. This was associated with trapping of air And mild reduction in the diffusion capacity. She has more that 60 pack years smoking, but stopped in 2000 She is on Anoro ellipta and is doing well, good exercise tolerance does the bike mostly. Does good exercise at work, around 18,000 Complete rupture of rotator cuff 2006 Congestive heart failure, unspecified HF chronicity, unspecified heart failure type (HCC) 05/12/2023 Cystocele 07/29/2013 Diarrhea Diverticulosis of colon (without mention of hemorrhage) Gastrointestinal hemorrhage associated with anorectal source 11/22/2020 Was admitted in September 2020 with the red blood per rectum. At that time INR was 1.7 as she is on Coumadin, her hemoglobin was stable so no blood transfusion was required. She had a CT scan and contrast and was given IV fluids after which she developed some shortness of breath and was given Lasix and she was sent home the next day after an echo. 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 Chao at [facility]. She is on trilogy Ellipta. She has quit smoking in the past we encouraged her to continue to quit smoking. Stroke (HCC) x 2 last stroke 02/14/2016 TIA (transient ischemic attack) 12/16/2007 Unspecified inflammatory polyarthropathy PAST SURGICAL HISTORY Procedure Laterality Date ARTHRP ACETBLR/PROX FEM PROSTC AGRFT/ALGRFT 02/20/2015 Hip replacement, total COLONOSCOPY GEN ANES 11/22/2020 COLONOSCOPY W/BIOPSY SINGLE/MULTIPLE 10/03/2009 EGD 11/22/2020 EGD TRANSORAL BIOPSY SINGLE/MULTIPLE 10/13/2008 minimal gastritis HEART CATHETERIZATION 2009 OPEN REPAIR OF ROTATOR CUFF ACUTE 1996, 2001,2002 Rotator cuff repair-right shoulder OPEN REPAIR OF ROTATOR CUFF ACUTE 2006 Left PAST SURGICAL HISTORY OF 1998 L5-DIONICIO Spinal Fusion PAST SURGICAL HISTORY OF right foot x2, spur, neuroma PAST SURGICAL HISTORY OF 1967 cyst removed right breast PAST SURGICAL HISTORY OF 05/05/2014 Anterior colporrhaphy, Vaginal vault suspension per SUPeR trial ; Cystourethroscopy PAST SURGICAL HISTORY OF 10/2013 left shoulder replacement PAST SURGICAL HISTORY OF Right 09/21/2018 right reverse total shoulder arthroplasty [facility] REVISE MEDIAN N/CARPAL TUNNEL SURG Right 01/15/2024 Right Carpal tunnel release WRIST SURGERY HX Left 2018 removed 3 bones in wrist FAMILY HISTORY Problem Relation Age of Onset Heart Mother [place] Heart Father [place] Diabetes Maternal Uncle Headache Sister Social History Tobacco Use Smoking status: Former Current packs/day: 0.00 Average packs/day: 2.0 packs/day for 30.0 years (60.0 ttl pk-yrs) Types: Cigarettes Start date: 08/22/1970 Quit date: 08/22/2000 Years since quittin.8 Smokeless tobacco: Never Vaping Use Vaping status: Never Used Substance Use Topics Alcohol use: Not Currently Comment: very occasional Drug use: Not Currently Types: Marijuana Past medical history, appointments, medications, allergies reviewed. Pertinent Lab/Diagnostic Studies are reviewed and discussed today Current Outpatient Medications: predniSONE (DELTASONE) 5 mg tablet HYDROcodone-acetaminophen (NORCO) 5-325 mg per tablet levothyroxine (SYNTHROID) 25 mcg tablet zolpidem (AMBIEN) 10 mg empagliflozin (JARDIANCE) 10 mg tablet gabapentin (NEURONTIN) [address] (PROTONIX) 40 mg tablet metOLazone (ZAROXOLYN) 2.5 mg tablet dilTIAZem CD (CARDIZEM CD) 180 mg 24 hr capsule potassium chloride SR (MICRO-K) 10 mEq CR capsule warfarin (COUMADIN) 1 mg tablet furosemide (LASIX) 40 mg tablet atenolol (TENORMIN) 25 mg tablet TRELEGY ELLIPTA 100-62.5-25 mcg inhalation powder COMPOUNDED PRESCRIPTION Magnesium 30 mg tablet calcium carbonate/vitamin d3(CALCIUM 600 + D(3) 600 MG (1,500)-200 UNIT TAB) DAILY MULTIPLE TAB Review of Systems CONSTITUTIONAL: No fevers, chills night sweats, unintended weight loss CARDIOVASCULAR: No chest pain, dyspnea, palpitations, orthopnea, PND, ankle edema. PULM: No dyspnea, unexplained cough. GI: No dysphagia/odynophagia, problematic reflux, constipation, diarrhea, changes in stool habits, hematochezia, melena. : No new urinary complaints, including dysuria, gross hematuria or pyuria. NEURO: No new balance problems, peripheral weakness/paresthesias or numbness of concern. Physical Exam BP 122/70 Pulse 62 Wt 54.9 kg (121 lb) BMI 24.79 kg/m? General appearance: Well appearing, alert, in no acute distress, well nourished. Skin: Skin color, texture, turgor normal, no suspicious rashes or lesions Head: Normocephalic, no masses, lesions, tenderness or abnormalities Eyes: Anicteric sclera. Pupils are equally round and reactive to light. Extraocular movements are intact. Lungs: Lungs clear to auscultation. No wheezing, rhonchi, rales Heart: RRR without murmur, gallop, or rubs. Weight: She walks with a significant limp which is more antalgic. ASSESSMENT/PLAN: 1. Pure hypercholesterolemia - ICD9: 272.0, ICD10: E78.00 (primary diagnosis) LDL is elevated but HDL is 73 and LDL is 120. She does not have coronary artery disease but has diastolic dysfunction. She may benefit from a statin but she is over the age of 77. 2. Longstanding persistent atrial fibrillation (HCC) - ICD9: 427.31, ICD10: I48.11 Continue the warfarin and beta-blockers 3. Congestive heart failure, unspecified HF chronicity, unspecified heart failure type (HCC) - ICD9: 428.0, ICD10: I50.9 Likely euvolemic 4. Acquired hypothyroidism - ICD9: 244.9, ICD10: E03.9 - Instructed patient on importance of taking on an empty stomach either first thing in the morning or at bedtime. 5. Centrilobular emphysema (HCC) - ICD9: 492.8, ICD10: J43.2 Continue on her inhalers 6. Gastroesophageal reflux disease without esophagitis - ICD9: 530.81, ICD10: K21.9 - Discussed lifestyle modifications including losing weight, limiting caffeine, no meals three hours before sleep, and head of bed elevation 7. Rheumatoid arthritis with positive rheumatoid factor, involving unspecified site (HCC) - ICD9: 714.0, ICD10: M05.9 She is on the Arava to continue Andra Rodrigues MD Allergies As of Date: 06/22/2024 Noted Allergy Reaction ADHESIVE TAPE (ROSINS) 08/22/2005 2 - Rash IBUPROFEN 06/06/2014 Comments: Pt on coumadin VICODIN (HYDROCODONE-ACETAMINOPHE*12/15/2014 8 - GI Upset Date Reviewed: 06/22/2024 Reviewed by: Dino Perez MA - Fully Assessed Reason for Visit: Follow Up [171] Primary Visit Diagnosis:Pure hypercholesterolemia [E78.00] Other Visit Diagnoses:Longstanding persistent atrial fibrillation (HCC) [I48.11] Congestive heart failure, unspecified HF chronicity, unspecified heart failure type (HCC) [I50.9] Acquired hypothyroidism [E03.9] Centrilobular emphysema (HCC) [J43.2] Gastroesophageal reflux disease without esophagitis [K21.9] Rheumatoid arthritis with positive rheumatoid factor, involving unspecified site (HCC) [M05.9] Order(s):leflunomide (ARAVA) 10 mg tabletTake 1 tablet by mouth once daily.Disp: Rfl: Prescriptions as of 06/22/2024 - predniSONE (DELTASONE) 5 mg tablet Take 5 mg by mouth once daily. Dr. Núñez - leflunomide (ARAVA) 10 mg tablet Take 1 tablet by mouth once daily. - HYDROcodone-acetaminophen (NORCO) 5-325 mg per tablet Take 1 tablet by mouth every 8 hours as needed for pain for up to 30 days. - levothyroxine (SYNTHROID) 25 mcg tablet Take 1 tablet by mouth daily before breakfast. - zolpidem (AMBIEN) 10 mg Take 1 tablet by mouth at bedtime as needed for up to 90 days. - empagliflozin (JARDIANCE) 10 mg tablet Take 1 tablet by mouth daily with breakfast. - gabapentin (NEURONTIN) 300 mg capsule Take 1 capsule by mouth two times a day. - pantoprazole DR (PROTONIX) 40 mg tablet Take 1 tablet by mouth daily before breakfast. Take on empty stomach, 1/2 hr before meal. - metOLazone (ZAROXOLYN) 2.5 mg tablet Take 1 tablet by mouth every other day. - dilTIAZem CD (CARDIZEM CD) 180 mg 24 hr capsule Take 1 capsule by mouth once daily. - potassium chloride SR (MICRO-K) 10 mEq CR capsule Take 2 capsules by mouth two times a day. - warfarin (COUMADIN) 1 mg tablet Take 1 tablet by mouth once daily. Please take daily as directed - furosemide (LASIX) 40 mg tablet Take 1 tablet by mouth once daily. Takes twice daily if with increased edema - atenolol (TENORMIN) 25 mg tablet Take 1 tablet by mouth two times a day. - TRELEGY ELLIPTA 100-62.5-25 mcg inhalation powder Inhale 1 Puff as instructed once daily. - Magnesium 30 mg tablet Take 1 tablet by mouth twice daily. - calcium carbonate/vitamin d3(CALCIUM 600 + D(3) 600 MG (1,500)-200 UNIT TAB) Take one(1) tablet twice daily BY MOUTH. - DAILY MULTIPLE TAB Take one(1) tablet daily BY MOUTH. Problem List As Of Date 06/22/2024 Noted Resolved Osteoarthrosis, unspecified whether generalized* 03/11/2017 AMNESIA (RETROGRADE) TRANSIENT GLOBAL [G45.4] 07/15/2007 06/26/2023 HIGH BLOOD PRESSURE-NO HYPERTENSN [R03.0] 07/15/2007 03/11/2017 INSOMNIA [G47.00] 07/15/2007 TOBACCO USE - PERSONAL HX [Z87.891] 07/15/2007 03/11/2017 Hyperlipidemia [E78.5] 08/20/2007 TIA (transient ischemic attack) [G45.9] 12/16/2007 06/26/2023 Acute gastritis with hemorrhage [K29.01] 10/13/2008 03/11/2017 Acute gastritis without mention of hemorrhage [*10/13/2008 03/11/2017 Hyperlipemia [E78.5] 06/16/2009 02/02/2016 Atrial Fibrillation [I48.91] 06/16/2009 12/16/2014 Sicca syndrome (HCC) [M35.00] 03/11/2017 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] 03/11/2017 Generalized Osteoarthrosis, Involving Hand [M15* Diarrhea [R19.7] 10/03/2009 12/16/2014 Diverticulosis of colon (without mention of hem*10/03/2009 06/26/2023 Internal hemorrhoids without mention of complic*10/03/2009 03/11/2017 Mitral regurgitation [I34.0] 09/02/2011 Right wrist pain [M25.531] 12/15/2012 03/11/2017 Uterovaginal prolapse [N81.4] 07/29/2013 03/11/2017 Cystocele [EQH6746] 07/29/2013 06/26/2023 Rotator cuff tear arthropathy of both shoulders*08/24/2013 PMB (postmenopausal bleeding) [N95.0] 09/07/2013 03/11/2017 Atrial fibrillation (HCC) [I48.91] 12/16/2014 Psoas tendinitis of right side [M76.11] 12/05/2015 03/11/2017 Gastroesophageal reflux disease without esophag*03/11/2016 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 *07/08/2016 Bilateral hip pain [M25.551, M25.552] 03/11/2017 S/P lumbar fusion [Z98.1] 06/02/2017 Abrasion of left forearm [S50.812A] 06/26/2017 03/18/2023 Laceration of left forearm [S51.812A] 06/26/2017 03/18/2023 Contusion of left hand [S60.222A] 06/26/2017 03/18/2023 Hematoma of left hip [S70.02XA] 06/26/2017 06/26/2023 Contusion of left knee [S80.02XA] 06/26/2017 03/18/2023 Primary osteoarthritis involving multiple joint*03/24/2018 Centrilobular emphysema (HCC) [J43.2] 04/13/2020 Gastrointestinal hemorrhage associated with ano*11/22/2020 06/26/2023 Iron deficiency anemia due to chronic blood los*11/22/2020 Pinched nerve in neck [G58.9] 01/30/2021 06/05/2021 Simple chronic bronchitis (HCC) [J41.0] 03/26/2021 Nonrheumatic tricuspid valve regurgitation [I36*03/26/2021 Congestive heart failure, unspecified HF chroni*05/12/2023 Acute respiratory failure with hypoxia and hype*05/12/2023 03/17/2024 Pulmonary hypertension due to lung diseases and*06/23/2023 Acquired hypothyroidism [E03.9] 01/23/2022 Rheumatoid arthritis with positive rheumatoid f*09/17/2023 Prescriptions ordered this encounter Disp Refills Start End LEFLUNOMIDE 10 MG TABLET 06/22/2024 Class: Med Update Route: ORAL Sig: Take 1 tablet by mouth once daily. Medications Discontinued During This Encounter Prescriptions - COMPOUNDED PRESCRIPTION (Discontinued) Compression stockings. 15 to 20 pressure Uses as needed for edema Level of Service: OFFICE/OUTPATIENT ESTABLISHED MOD [facility] 30 MIN [82362] Additional E/M codes: VISIT CPLX INHERENT EANDM ASSOC WITH MED * Encounter Status:Closed by ANDRA RODRIGUES on 06/22/24 [place] Observed: 06/22/2024 12:00 AM Status: COMPLETED Source: [facility] Telephone ([employer]) MALU KITCHEN ([id number]) 1945 F Vendor Date Time Provider Department 06/22/24 ROBIN WHITEHEAD During your visit today, we recorded the following information about you: Jacobo Gary RN 06/22/2024 1:50 PM Signed ----- Message from Robin Whitehead MD sent at 06/22/2024 1:16 PM EST ----- Please notify patient CT chest showed some evidence of COPD/emphysema and some small nodules in her lung. Will discuss with her further when she comes in for her RHC in 07/01/2024. Will order CT chest follow up in 3 months, please reschedule Jacobo Gary RN 06/22/2024 1:52 PM Signed Left VM for pt requesting call back. Dr. Whitehead did place repeat CT order, will need to be scheduled for 08/2024. Jacobo Gary RN 06/29/2024 9:[address] scheduled Allergies As of Date: 06/22/2024 Noted Allergy Reaction ADHESIVE TAPE (ROSINS) 08/22/2005 2 - Rash IBUPROFEN 06/06/2014 Comments: Pt on coumadin VICODIN (HYDROCODONE-ACETAMINOPHE*12/15/2014 8 - GI Upset Date Reviewed: 06/22/2024 Reviewed by: Dino Perez MA - Fully Assessed Reason for Visit: Results [95] Cmt: CT Prescriptions as of 06/29/2024 - predniSONE (DELTASONE) 5 mg tablet Take 5 mg by mouth once daily. Dr. Núñez - leflunomide (ARAVA) 10 mg tablet Take 1 tablet by mouth once daily. - HYDROcodone-acetaminophen (NORCO) 5-325 mg per tablet Take 1 tablet by mouth every 8 hours as needed for pain for up to 30 days. - levothyroxine (SYNTHROID) 25 mcg tablet Take 1 tablet by mouth daily before breakfast. - zolpidem (AMBIEN) 10 mg Take 1 tablet by mouth at bedtime as needed for up to 90 days. - empagliflozin (JARDIANCE) 10 mg tablet Take 1 tablet by mouth daily with breakfast. - gabapentin (NEURONTIN) 300 mg capsule Take 1 capsule by mouth two times a day. - pantoprazole DR (PROTONIX) 40 mg tablet Take 1 tablet by mouth daily before breakfast. Take on empty stomach, 1/2 hr before meal. - metOLazone (ZAROXOLYN) 2.5 mg tablet Take 1 tablet by mouth every other day. - dilTIAZem CD (CARDIZEM CD) 180 mg 24 hr capsule Take 1 capsule by mouth once daily. - potassium chloride SR (MICRO-K) 10 mEq CR capsule Take 2 capsules by mouth two times a day. - warfarin (COUMADIN) 1 mg tablet Take 1 tablet by mouth once daily. Please take daily as directed - furosemide (LASIX) 40 mg tablet Take 1 tablet by mouth once daily. Takes twice daily if with increased edema - atenolol (TENORMIN) 25 mg tablet Take 1 tablet by mouth two times a day. - TRELEGY ELLIPTA 100-62.5-25 mcg inhalation powder Inhale 1 Puff as instructed once daily. - Magnesium 30 mg tablet Take 1 tablet by mouth twice daily. - calcium carbonate/vitamin d3(CALCIUM 600 + D(3) 600 MG (1,500)-200 UNIT TAB) Take one(1) tablet twice daily BY MOUTH. - DAILY MULTIPLE TAB Take one(1) tablet daily BY MOUTH. Problem List As Of Date 06/22/2024 Noted Resolved Osteoarthrosis, unspecified whether generalized* 03/11/2017 AMNESIA (RETROGRADE) TRANSIENT GLOBAL [G45.4] 07/15/2007 06/26/2023 HIGH BLOOD PRESSURE-NO HYPERTENSN [R03.0] 07/15/2007 03/11/2017 INSOMNIA [G47.00] 07/15/2007 TOBACCO USE - PERSONAL HX [Z87.891] 07/15/2007 03/11/2017 Hyperlipidemia [E78.5] 08/20/2007 TIA (transient ischemic attack) [G45.9] 12/16/2007 06/26/2023 Acute gastritis with hemorrhage [K29.01] 10/13/2008 03/11/2017 Acute gastritis without mention of hemorrhage [*10/13/2008 03/11/2017 Hyperlipemia [E78.5] 06/16/2009 02/02/2016 Atrial Fibrillation [I48.91] 06/16/2009 12/16/2014 Sicca syndrome (HCC) [M35.00] 03/11/2017 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] 03/11/2017 Generalized Osteoarthrosis, Involving Hand [M15* Diarrhea [R19.7] 10/03/2009 12/16/2014 Diverticulosis of colon (without mention of hem*10/03/2009 06/26/2023 Internal hemorrhoids without mention of complic*10/03/2009 03/11/2017 Mitral regurgitation [I34.0] 09/02/2011 Right wrist pain [M25.531] 12/15/2012 03/11/2017 Uterovaginal prolapse [N81.4] 07/29/2013 03/11/2017 Cystocele [JAO0267] 07/29/2013 06/26/2023 Rotator cuff tear arthropathy of both shoulders*08/24/2013 PMB (postmenopausal bleeding) [N95.0] 09/07/2013 03/11/2017 Atrial fibrillation (HCC) [I48.91] 12/16/2014 Psoas tendinitis of right side [M76.11] 12/05/2015 03/11/2017 Gastroesophageal reflux disease without esophag*03/11/2016 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 *07/08/2016 Bilateral hip pain [M25.551, M25.552] 03/11/2017 S/P lumbar fusion [Z98.1] 06/02/2017 Abrasion of left forearm [S50.812A] 06/26/2017 03/18/2023 Laceration of left forearm [S51.812A] 06/26/2017 03/18/2023 Contusion of left hand [S60.222A] 06/26/2017 03/18/2023 Hematoma of left hip [S70.02XA] 06/26/2017 06/26/2023 Contusion of left knee [S80.02XA] 06/26/2017 03/18/2023 Primary osteoarthritis involving multiple joint*03/24/2018 Centrilobular emphysema (HCC) [J43.2] 04/13/2020 Gastrointestinal hemorrhage associated with ano*11/22/2020 06/26/2023 Iron deficiency anemia due to chronic blood los*11/22/2020 Pinched nerve in neck [G58.9] 01/30/2021 06/05/2021 Simple chronic bronchitis (HCC) [J41.0] 03/26/2021 Nonrheumatic tricuspid valve regurgitation [I36*03/26/2021 Congestive heart failure, unspecified HF chroni*05/12/2023 Acute respiratory failure with hypoxia and hype*05/12/2023 03/17/2024 Pulmonary hypertension due to lung diseases and*06/23/2023 Acquired hypothyroidism [E03.9] 01/23/2022 Rheumatoid arthritis with positive rheumatoid f*09/17/2023 Encounter Status:Closed by JACOBO GARY on 06/22/24 CNPN Observed: 06/18/2024 12:00 AM Status: COMPLETED Source: [facility] Telephone ([employer]) MALU KITCHEN ([id number]) 1945 F Vendor Date Time Provider Department 06/18/24 ROBIN WHITEHEAD [facility] During your visit today, we recorded the following information about you: Lucretia Harris RN 06/18/2024 3:21 PM Signed Attempted to contact patient to relay information. LVM message with call back number provided. MC message sent to patient as well. MOSHE Mckay MD 06/17/2024 3:51 PM EST Back to Top Please notify patient that VQ scan is negative and shows no evidence of blood clots in the lungs. This is a good thing Jacobo Gary RN 06/21/2024 11:[address] in result notes for pt. Enc closed. Allergies As of Date: 06/18/2024 Noted Allergy Reaction ADHESIVE TAPE (ROSINS) 08/22/2005 2 - Rash IBUPROFEN 06/06/2014 Comments: Pt on coumadin VICODIN (HYDROCODONE-ACETAMINOPHE*12/15/2014 8 - GI Upset Date Reviewed: 06/04/2024 Reviewed by: Robin Whitehead MD - Fully Assessed Reason for Visit: Results [95] Prescriptions as of 06/21/2024 - HYDROcodone-acetaminophen (NORCO) 5-325 mg per tablet Take 1 tablet by mouth every 8 hours as needed for pain for up to 30 days. - levothyroxine (SYNTHROID) 25 mcg tablet Take 1 tablet by mouth daily before breakfast. - zolpidem (AMBIEN) 10 mg Take 1 tablet by mouth at bedtime as needed for up to 90 days. - empagliflozin (JARDIANCE) 10 mg tablet Take 1 tablet by mouth daily with breakfast. - gabapentin (NEURONTIN) 300 mg capsule Take 1 capsule by mouth two times a day. - pantoprazole DR (PROTONIX) 40 mg tablet Take 1 tablet by mouth daily before breakfast. Take on empty stomach, 1/2 hr before meal. - metOLazone (ZAROXOLYN) 2.5 mg tablet Take 1 tablet by mouth every other day. - dilTIAZem CD (CARDIZEM CD) 180 mg 24 hr capsule Take 1 capsule by mouth once daily. - potassium chloride SR (MICRO-K) 10 mEq CR capsule Take 2 capsules by mouth two times a day. - warfarin (COUMADIN) 1 mg tablet Take 1 tablet by mouth once daily. Please take daily as directed - furosemide (LASIX) 40 mg tablet Take 1 tablet by mouth once daily. Takes twice daily if with increased edema - atenolol (TENORMIN) 25 mg tablet Take 1 tablet by mouth two times a day. - TRELEGY ELLIPTA 100-62.5-25 mcg inhalation powder Inhale 1 Puff as instructed once daily. - COMPOUNDED PRESCRIPTION Compression stockings. 15 to 20 pressure - Magnesium 30 mg tablet Take 1 tablet by mouth twice daily. - calcium carbonate/vitamin d3(CALCIUM 600 + D(3) 600 MG (1,500)-200 UNIT TAB) Take one(1) tablet twice daily BY MOUTH. - DAILY MULTIPLE TAB Take one(1) tablet daily BY MOUTH. Problem List As Of Date 06/18/2024 Noted Resolved Osteoarthrosis, unspecified whether generalized* 03/11/2017 AMNESIA (RETROGRADE) TRANSIENT GLOBAL [G45.4] 07/15/2007 06/26/2023 HIGH BLOOD PRESSURE-NO HYPERTENSN [R03.0] 07/15/2007 03/11/2017 INSOMNIA [G47.00] 07/15/2007 TOBACCO USE - PERSONAL HX [Z87.891] 07/15/2007 03/11/2017 Hyperlipidemia [E78.5] 08/20/2007 TIA (transient ischemic attack) [G45.9] 12/16/2007 06/26/2023 Acute gastritis with hemorrhage [K29.01] 10/13/2008 03/11/2017 Acute gastritis without mention of hemorrhage [*10/13/2008 03/11/2017 Hyperlipemia [E78.5] 06/16/2009 02/02/2016 Atrial Fibrillation [I48.91] 06/16/2009 12/16/2014 Sicca syndrome (HCC) [M35.00] 03/11/2017 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] 03/11/2017 Generalized Osteoarthrosis, Involving Hand [M15* Diarrhea [R19.7] 10/03/2009 12/16/2014 Diverticulosis of colon (without mention of hem*10/03/2009 06/26/2023 Internal hemorrhoids without mention of complic*10/03/2009 03/11/2017 Mitral regurgitation [I34.0] 09/02/2011 Right wrist pain [M25.531] 12/15/2012 03/11/2017 Uterovaginal prolapse [N81.4] 07/29/2013 03/11/2017 Cystocele [ZWJ1361] 07/29/2013 06/26/2023 Rotator cuff tear arthropathy of both shoulders*08/24/2013 PMB (postmenopausal bleeding) [N95.0] 09/07/2013 03/11/2017 Atrial fibrillation (HCC) [I48.91] 12/16/2014 Psoas tendinitis of right side [M76.11] 12/05/2015 03/11/2017 Gastroesophageal reflux disease without esophag*03/11/2016 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 *07/08/2016 Bilateral hip pain [M25.551, M25.552] 03/11/2017 S/P lumbar fusion [Z98.1] 06/02/2017 Abrasion of left forearm [S50.812A] 06/26/2017 03/18/2023 Laceration of left forearm [S51.812A] 06/26/2017 03/18/2023 Contusion of left hand [S60.222A] 06/26/2017 03/18/2023 Hematoma of left hip [S70.02XA] 06/26/2017 06/26/2023 Contusion of left knee [S80.02XA] 06/26/2017 03/18/2023 Primary osteoarthritis involving multiple joint*03/24/2018 Centrilobular emphysema (HCC) [J43.2] 04/13/2020 Gastrointestinal hemorrhage associated with ano*11/22/2020 06/26/2023 Iron deficiency anemia due to chronic blood los*11/22/2020 Pinched nerve in neck [G58.9] 01/30/2021 06/05/2021 Simple chronic bronchitis (HCC) [J41.0] 03/26/2021 Nonrheumatic tricuspid valve regurgitation [I36*03/26/2021 Congestive heart failure, unspecified HF chroni*05/12/2023 Acute respiratory failure with hypoxia and hype*05/12/2023 03/17/2024 Pulmonary hypertension due to lung diseases and*06/23/2023 Acquired hypothyroidism [E03.9] 01/23/2022 Rheumatoid arthritis with positive rheumatoid f*09/17/2023 Encounter Status:Closed by LUCRETIA HARRIS on 06/18/24 NM LUNG VENT / PERF VQ Observed: 024 2:35 PM Status: F Source: [facility] * * *Final Report* * * DATE OF EXAM: Jun 17 2024 2:35PM PAN 0032 - NM LUNG VENT / PERF VQ / PROCEDURE REASON: Other secondary pulmonary hypertension (HCC) * * * * Physician Interpretation * * * * EXAMINATION: PULMONARY VENTILATION/PERFUSION SCAN CLINICAL HISTORY: Secondary pulmonary hypertension.. TECHNIQUE: 0.8 millicuries of Tc-99m DTPA aerosol was inhaled. 5.8 mCi of Tc-99m MAA was administered IV. Planar pulmonary ventilation and perfusion images obtained in anterior, posterior, lateral, and oblique projections. COMPARISON: No prior V/Q scan available CORRELATION: CT chest 06/15/2024 RESULT: Exam Interpretation criteria: Modified PIOPED II Ventilation: Heterogeneous radiotracer distribution in both lungs with some central airway accumulation. Perfusion: No mismatched defects. Scattered (at least 2) matched defects without a corresponding airspace opacity on correlation chest imaging. IMPRESSION: Low probability exam for pulmonary embolism. Advise risk stratification and if there is a discordant clinical probability of pulmonary embolism, then further imaging may be necessary including lower extremity Doppler ultrasound and/or CT Chest PE. Childcare Director: JUAN F Transcribe Date/Time: Jun 17 2024 2:51P Dictated by : DELIA BAEZ DO This examination was interpreted and the report reviewed and electronically signed by: MELVI CAM MD on Jun 17 2024 3:05PM EST [id number] PROGRESS Observed: 06/17/2024 2:00 PM Status: COMPLETED Source: [facility] HNO ID: [id number] Author: ABISAI CASTILLO RT(R) Service: Nuclear Medicine Author Type: Bung Remover Type: Progress Notes Filed: 06/17/2024 14:29 Note Text: RADIOLOGY SERVICE PROGRESS NOTE SERVICE DATE: 06/17/2024 SERVICE TIME: 2:28 PM PATIENT IDENTITY VERIFICATION COMPLETED USING TWO (2) STANDARD IDENTIFIERS: Name and Date of confirmed by patient verbally and Name and Date of confirmed by identification band FALL SCREENING: Has the patient had 2 falls in the last year or 1 fall with injury or currently using an Ambulatory Assistive Device (Walker, Cane, Wheelchair, Crutches, etc.)? No PATIENT GENDER DATA: .female : No ALLERGIES: Reviewed and unchanged MEDICATIONS REVIEWED: Not applicable PATIENT RELEVANT IMPLANT DATA REVIEWED: Not Applicable PATIENT PRESENTS WITH AN IMPLANTABLE OR ATTACHED MINE EXPERT: No CREATININE: Creatinine Date Value Ref Range Status 03/17/2024 1.00 (H) 0.58 - 0.96 mg/dL Final 01/05/2024 0.89 0.58 - 0.96 mg/dL Final 10/07/2023 1.04 (H) 0.58 - 0.96 mg/dL Final Estimated Glomerular Filtration Rate Date Value Ref Range Status 03/17/2024 59 (L) >=60 mL/min/1.73m? Final Comment: Estimated Glomerular Filtration Rate (eGFR) is calculated using the 2020 CKD-EPI creatinine equation. This equation utilizes serum creatinine, sex, and age as parameters. The creatinine assay has traceable calibration to isotope dilution-mass spectrometry. Refer to KDIGO guidelines for clinical interpretation. In patients with unstable renal function, e.g. those with acute kidney injury, the eGFR may not accurately reflect actual GFR. eGFR- Date Value Ref Range Status 05/02/2020 >60 Final P.O.C.T. RESULTS: N/A June 17, [address] PERFORMED: No IV SITE: [place] only - not applicable, oral or physician administered agents given to patient straight stick to ;ac POST EXAM PIV STATUS: Discontinued PROCEDURE TYPE: VQ Scan: 0.8 mCi of Tc99m DTPA was inhaled. 5.8 mCi of Tc99m MAA was administered IV.at 1425 ADMINISTRATION TIME: 1408 PATIENT DISCHARGED TO: Ambulatory patient, left [place] department area. Is this a therapy: No A Diagnostic radioactive procedure has taken place, with no further precautions necessary other than routine body substance precautions. More information regarding radiation safety can be found using this link: [email or web address] SIGNATURE: JULIO C Garcia) PATIENT NAME: Malu Kitchen DATE: June 17, 2024 TIME: 2:28 PM PAGER/CONTACT #: PROCEDURE Observed: 06/15/2024 2:22 PM Status: COMPLETED Source: [facility] HNO ID: [id number] Author: SALVATORE YO RPFT Service: ? Author Type: Respiratory Therapist Type: Procedures Filed: 06/15/2024 14:23 Note Text: Attestation signed by Gary Stein MD at 06/18/2024 1:40 PM The patient completed the six minute walk test with 2 stops. Total Duration Of The Stops (seconds): 15. The patient required Room Air to complete the test. The distance the patient walked in six minutes is extremely reduced. This is the first time patient takes the six minute walk test. The patient perceived their dyspnea during the six minute walk test to be 3-Moderate on the modified Roxy scale. The patient perceived their fatigue during the six minute walk test to be 6 - on the modified Roxy scale. I have reviewed the findings and made appropriate revisions as needed. SIGNATURE: Gary Stein MD PATIENT NAME: Maul Kitchen DATE: June 18, 2024 TIME: 1:40 PM RESPIRATORY THERAPY SIX MINUTE WALK TEST OXIMETRY REPORT Six Minute Walk Test for This Encounter Oxygen Device Liters FIO2 SpO2% HR Activity Feet Speed (MPH) Flag R/A 98 68 Resting R/A 93 86 Six Minute Walk 635 1.2 R/A 93 68 Recovery 1 minute post R/A 94 68 Recovery 2 minute post R/A 96 70 Recovery 3 minute post General Information Height Weight Pulse Oximetry Site Oximeter Pre Blood Pressure Post Blood Pressure Total Time Spent (min) 148.8 cm (4' 10.58) 56.2 kg (124 lb) Forehead Masimo 119/77 118/83 30 _ Distance Walked (meters) Distance Walked (feet) Female Predicted Walk Distance (feet) Female Lower Limit of Normal (feet) Female % Predicted Total Duration Of The Stops (seconds) 193.55 635 1354.66 898.66 46.9 15 _ Lowest SpO2 During 6 Minute Walk Pre-Roxy Dyspnea Rating Pre-Roxy Fatigue Rating Post Roxy Dyspnea Rating Post Roxy Fatigue Rating 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 Author Type: Respiratory Therapist Type: Progress Notes Filed: 06/15/2024 14:23 Note Text: PULM FUNCTION: Provider: Robin Whitehead MD Assisting Tech: Salvatore Yo RPFT Spirometry: 1 DLCO: 1 6 MW: 1 CT CHEST WO IVCON Observed: 06/15/2024 1:27 PM Status: F Source: [facility] * * *Final Report* * * DATE OF EXAM: Jun 15 2024 1:27PM [facility] 0541 - CT CHEST WO IVCON / PROCEDURE REASON: Interstitial pulmonary disease (HCC) * * * * Physician Interpretation * * * * EXAMINATION: CHEST CT WITHOUT CONTRAST CLINICAL HISTORY: Emphysema. Evaluate for interstitial lung disease. Technique: Spiral CT acquisition of the chest from the thoracic inlet to the upper abdomen without contrast. MQ: CTCWO_6 CT Radiation dose: Integrated Dose-length product (DLP) for this visit = 216 mGy*cm CT Dose Reduction Employed: Automated exposure control(AEC) and iterative recon Comparison: No prior CT chest is available for comparison. RESULT: Limitations: None. Lines, tubes, and devices: None. Lung parenchyma and airways: Centrilobular emphysema. Air trapping is noted on images with free breathing. Clustered nodules in a tree-in-bud distribution in the right upper lobe. 2 to 3 mm nodule posterior right lung apex (11:46). 2 to 3 mm nodule anterior left upper lobe (11:69). No consolidation bilateral bronchial wall thickening. Scarring and bronchiectasis in the medial right lower lobe. The central airways are patent. Pleural space: No pleural effusion. No pleural thickening. Lower neck, lymph nodes, and mediastinum: The imaged thyroid gland is normal. No lymphadenopathy in the supraclavicular, axillary, mediastinal, or hilar regions. Heart, pericardium, and thoracic vessels: The thoracic aorta and main pulmonary artery are normal in caliber. The cardiac chambers are normal in size. Coronary artery atherosclerotic calcifications are noted, although the study is not optimized for coronary assessment. No pericardial effusion or thickening. Bones and soft tissues: No destructive bone lesion. Kyphosis and multilevel degenerative disc disease of the thoracic spine. Mild compression deformity of the vertebral body of T8. Spinal stimulator leads are present with the tip at the level of T7. No chest wall mass. Bilateral shoulder prostheses. Upper abdomen: No abnormality in the imaged upper abdomen. Localizer images: No additional findings. IMPRESSION: 1. Centrilobular emphysema 2. Clustered nodules in a tree-in-bud distribution in the right upper lobe which are most likely infectious/inflammatory 3. Scarring and bronchiectasis in the medial right lower lobe 4. 2 to 3 mm pulmonary nodules in the upper lobes Incidental Finding: Follow-up Acuity: Incidental Finding: Solid: <6 mm (solitary or multiple) Routing Code: N/A Recommendation: No imaging follow-up is recommended Time Frame: N/A Comments: If there are risk factors for lung malignancy, a follow-up chest CT exam could be obtained in 12 months --END OF FINDING-- Childcare Director: JUAN F Transcribe Date/Time: Jun 21 2024 8:15A Dictated by : ALLA ROMAN MD This examination was interpreted and the report reviewed and electronically signed by: ALLA ROMAN MD on Jun 21 2024 8:27AM EST [id number] [id number] PROGRESS Observed: 06/15/2024 1:00 PM Status: COMPLETED Source: [facility] HNO ID: [id number] Author: RENEA CAVANAUGH RT(R) Service: ? Author Type: Bung Remover Type: Progress Notes Filed: 06/15/2024 15:10 Note Text: Radiology Service Progress Note PATIENT NAME: Malu Kitchen DATE OF SERVICE: June 15, 2024 TIME: 3:09 PM PATIENT IDENTITY VERIFICATION COMPLETED USING TWO (2) IDENTIFIERS: Name and Date of confirmed by patient verbally. FALL SCREENING: Has the patient had 2 falls in the last year or 1 fall with injury or currently using an Ambulatory Assistive Device (Walker, Cane, Wheelchair, Crutches, etc.)? No PATIENT GENDER DATA: Male PATIENT RELEVANT IMPLANT DATA REVIEWED: Yes PATIENT PRESENTS WITH AN IMPLANTABLE OR ATTACHED MINE EXPERT: No RADIOLOGY DEPARTMENT: CT; Exam(s) Completed: Chest PERIPHERAL IV DATA: Not applicable SIGNED BY: RT Josette(R) June 15, 2024 3:09 PM CNPN Observed: 06/14/2024 12:00 AM Status: COMPLETED Source: [facility] Telephone (INTMWS) MALU KITCHEN ([id number]) 1945 F Vendor Date Time Provider Department 06/14/24 ANDRA RODRIGUES INTMWS During your visit today, we recorded the following information about you: Zahra Prater LPN 06/14/2024 10:26 AM Signed Last INR: 2.2 06/12/2024 per home INR Current dose of coumadin is: . 1 mg daily Last date of dose change: 01/09/24. Previous INR (date and result): 06/03/24 was 1.8 Additional Clinical Information or narrative: INR goal is 2-3. Pt findings verified. Per home INR pt checks this weekly. Sheflai Rich APRN.CNP 06/14/2024 1:24 PM Signed INR in therapeutic range. Continue current dose and recheck in 2 weeks Thank you Shefali Rich APRN.TRAINING LEAD Tammi Dotson MA 06/14/2024 1:53 PM Signed Patient notified. Allergies As of Date: 06/14/2024 Noted Allergy Reaction ADHESIVE TAPE (ROSINS) 08/22/2005 2 - Rash IBUPROFEN 06/06/2014 Comments: Pt on coumadin VICODIN (HYDROCODONE-ACETAMINOPHE*12/15/2014 8 - GI Upset Date Reviewed: 06/04/2024 Reviewed by: Robin Whitehead MD - Fully Assessed Reason for Visit: Anticoagulation [8] Order(s):PROTHROMBIN TIME [SQPT] Order #: [id number] Prescriptions as of 06/14/2024 - HYDROcodone-acetaminophen (NORCO) 5-325 mg per tablet Take 1 tablet by mouth every 8 hours as needed for pain for up to 30 days. - levothyroxine (SYNTHROID) 25 mcg tablet Take 1 tablet by mouth daily before breakfast. - zolpidem (AMBIEN) 10 mg Take 1 tablet by mouth at bedtime as needed for up to 90 days. - empagliflozin (JARDIANCE) 10 mg tablet Take 1 tablet by mouth daily with breakfast. - gabapentin (NEURONTIN) 300 mg capsule Take 1 capsule by mouth two times a day. - pantoprazole DR (PROTONIX) 40 mg tablet Take 1 tablet by mouth daily before breakfast. Take on empty stomach, 1/2 hr before meal. - metOLazone (ZAROXOLYN) 2.5 mg tablet Take 1 tablet by mouth every other day. - dilTIAZem CD (CARDIZEM CD) 180 mg 24 hr capsule Take 1 capsule by mouth once daily. - potassium chloride SR (MICRO-K) 10 mEq CR capsule Take 2 capsules by mouth two times a day. - warfarin (COUMADIN) 1 mg tablet Take 1 tablet by mouth once daily. Please take daily as directed - furosemide (LASIX) 40 mg tablet Take 1 tablet by mouth once daily. Takes twice daily if with increased edema - atenolol (TENORMIN) 25 mg tablet Take 1 tablet by mouth two times a day. - TRELEGY ELLIPTA 100-62.5-25 mcg inhalation powder Inhale 1 Puff as instructed once daily. - COMPOUNDED PRESCRIPTION Compression stockings. 15 to 20 pressure - Magnesium 30 mg tablet Take 1 tablet by mouth twice daily. - calcium carbonate/vitamin d3(CALCIUM 600 + D(3) 600 MG (1,500)-200 UNIT TAB) Take one(1) tablet twice daily BY MOUTH. - DAILY MULTIPLE TAB Take one(1) tablet daily BY MOUTH. Problem List As Of Date 06/14/2024 Noted Resolved Osteoarthrosis, unspecified whether generalized* 03/11/2017 AMNESIA (RETROGRADE) TRANSIENT GLOBAL [G45.4] 07/15/2007 06/26/2023 HIGH BLOOD PRESSURE-NO HYPERTENSN [R03.0] 07/15/2007 03/11/2017 INSOMNIA [G47.00] 07/15/2007 TOBACCO USE - PERSONAL HX [Z87.891] 07/15/2007 03/11/2017 Hyperlipidemia [E78.5] 08/20/2007 TIA (transient ischemic attack) [G45.9] 12/16/2007 06/26/2023 Acute gastritis with hemorrhage [K29.01] 10/13/2008 03/11/2017 Acute gastritis without mention of hemorrhage [*10/13/2008 03/11/2017 Hyperlipemia [E78.5] 06/16/2009 02/02/2016 Atrial Fibrillation [I48.91] 06/16/2009 12/16/2014 Sicca syndrome (HCC) [M35.00] 03/11/2017 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] 03/11/2017 Generalized Osteoarthrosis, Involving Hand [M15* Diarrhea [R19.7] 10/03/2009 12/16/2014 Diverticulosis of colon (without mention of hem*10/03/2009 06/26/2023 Internal hemorrhoids without mention of complic*10/03/2009 03/11/2017 Mitral regurgitation [I34.0] 09/02/2011 Right wrist pain [M25.531] 12/15/2012 03/11/2017 Uterovaginal prolapse [N81.4] 07/29/2013 03/11/2017 Cystocele [QHM4649] 07/29/2013 06/26/2023 Rotator cuff tear arthropathy of both shoulders*08/24/2013 PMB (postmenopausal bleeding) [N95.0] 09/07/2013 03/11/2017 Atrial fibrillation (HCC) [I48.91] 12/16/2014 Psoas tendinitis of right side [M76.11] 12/05/2015 03/11/2017 Gastroesophageal reflux disease without esophag*03/11/2016 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 *07/08/2016 Bilateral hip pain [M25.551, M25.552] 03/11/2017 S/P lumbar fusion [Z98.1] 06/02/2017 Abrasion of left forearm [S50.812A] 06/26/2017 03/18/2023 Laceration of left forearm [S51.812A] 06/26/2017 03/18/2023 Contusion of left hand [S60.222A] 06/26/2017 03/18/2023 Hematoma of left hip [S70.02XA] 06/26/2017 06/26/2023 Contusion of left knee [S80.02XA] 06/26/2017 03/18/2023 Primary osteoarthritis involving multiple joint*03/24/2018 Centrilobular emphysema (HCC) [J43.2] 04/13/2020 Gastrointestinal hemorrhage associated with ano*11/22/2020 06/26/2023 Iron deficiency anemia due to chronic blood los*11/22/2020 Pinched nerve in neck [G58.9] 01/30/2021 06/05/2021 Simple chronic bronchitis (HCC) [J41.0] 03/26/2021 Nonrheumatic tricuspid valve regurgitation [I36*03/26/2021 Congestive heart failure, unspecified HF chroni*05/12/2023 Acute respiratory failure with hypoxia and hype*05/12/2023 03/17/2024 Pulmonary hypertension due to lung diseases and*06/23/2023 Acquired hypothyroidism [E03.9] 01/23/2022 Rheumatoid arthritis with positive rheumatoid f*09/17/2023 Encounter Status:Closed by TAMMI DOTSON on 06/14/24 NT-PROBNP SERPL-MCNC Collected: 06/04/2024 2:13 PM S tatus: F Source: [facility] Order Comment: Specimen Type : BLOOD SPECIMEN Ordering Facility: [facility] Address: [address] [place] [address] TYPE CODE TESTS RESULT OUT OF RANGE REFERENCE UNITS LAB 82251-5(LOINC) NT-proBNP SerPl-mCnc 4088 High <450 pg/mL Performed By: #### 65921-8 # ### [facility] CLIA [id number] [address] OF [facility] HIV1+2 AB SERPL QL IA Collected: 2023 2:13 PM Status: F Source: [facility] Order Comment: Specimen Type : BLOOD SPECIMEN Ordering Facility: [facility] Address: [address] [place] [address] TYPE CODE TESTS RESULT OUT OF RANGE REFERENCE UNITS LAB 15676-9(LOINC) HIV 1+2 Ab+HIV1 p24 Ag SerPl Ql IA Nonreactive Nonreactive Result Comment: [place] Rev. Co de 3701.243(E): This information has been disclosed to you from confidential records protected from disclosure by state law. ???You shall make no further disclosure of this information without the specific, written, and informed release of the individual to whom it pertains or as otherwise permitted by state law. A general authorization for the release of medical or other information is not sufficient for the purpose of the release of HIV test results or diagnoses. Test methodology for this assay has moved from Siemens Centaur XP to Wes jay 8000 effective April 30, 2022. Please note there may be a change in the reporting units and/or reference range. LAB 58250-6(LOINC) HIV 1 AND 2 Ab SerPlBld IA.rapid Result Comment: Test not ind icated. LAB 86335-1(LOINC) HIV IA algorithm interp SerPlBld-Imp Result Comment: No evidence of HIV-1 or HIV-2 infection. Should recent infection be suspected, repeat testing may be considered 2-3 weeks after this draw. Performed By: #### 85195-3 # ### [facility] CLIA [id number] [address] STATES OF [facility] CHROMATIN AB SERPL-ACNC Collected: 06/04/2024 2:13 PM Status: F Source: [facility] Order Comment: Specimen Type : BLOOD SPECIMEN Ordering Facility: [facility] Address: [address] [place] [address] TYPE CODE TESTS RESULT OUT OF RANGE REFERENCE UNITS LAB CHRABQL CHROMATIN AB QUAL Negative Negative LAB 02956-2(INC) Chromatin Ab SerPl-aCnc <0.2 <1.0 AI Result Comment: Test Methodo logy: Multiplex flow immunoassay. Performed By: #### 25304-0, 07620-5, 40815-7, 04512-4, 92482-8, 55931-7, 78086- 5, 63203-0 #### [facility] CLIA [id number] [address] [place] [address] [place] KAYLA SUMMER NANNY AB SER-ACNC Collected: 06/04/2024 2:[address] atus: F Source: [facility] Order Comment: Specimen Type : BLOOD SPECIMEN Ordering Facility: [facility] Address: [address] [place] [address] TYPE CODE TESTS RESULT OUT OF RANGE REFERENCE UNITS LAB RIRNPQL RIBOSOMAL SUMMER NANNY QUAL Negative Negative Result Comment: Anti-Ribosom al RNA (Ribosomal P) antibody is used as an aid in diagnosis of systemic autoimmune diseases especially systemic lupus erythematosus and mixed connective tissue disease. Cross-reactivity with Anti-valdes antibody is not uncommon. Clinical correlation is required. Test Methodology: Multiplex flow immunoassay. LAB 99085-4(LOINC) KAYLA SUMMER NANNY Ab Ser-aCnc <0.2 <1.0 AI Performed By: #### 01453-2, 37997-6, 35238-6, 63367-8, 24974-0, 82148-8, 94754- 5, 65937-6 #### [facility] CLIA [id number] [address] [place] [address] [place] SS-B AB SER-ACNC Collected: 06/04/2024 2:13 PM S tatus: F Source: [facility] Order Comment: Specimen Type : BLOOD SPECIMEN Ordering Facility: [facility] Address: [address] [place] [address] TYPE CODE TESTS RESULT OUT OF RANGE REFERENCE UNITS LAB 86846-2(INC) KAYLA SS-B Ab Ser-aCnc <0.2 <1.0 AI Result Comment: Anti-SSB (an ti-La) antibody is used as an aid in diagnosis of a variety of systemic autoimmune diseases, especially for Sjogren's syndrome and systemic lupus erythematosus. Clinical correlation is required. Test Methodology: Multiplex flow immunoassay. LAB SSBABQL SSB ANTIBODY QUAL Negative Negative Performed By: #### 07512-9, 80206-5, 74455-2, 52299-2, 19261-9, 96859-1, 63134- 5, 37580-8 #### [facility] CLIA [id number] [address] [place] [address] [place] CENTROMERE AB SER QL IF Collected: 06/04/2024 2:13 PM Status: F Source: [facility] Order Comment: Specimen Type : BLOOD SPECIMEN Ordering Facility: [facility] Address: [address] [place] [address] TYPE CODE TESTS RESULT OUT OF RANGE REFERENCE UNITS LAB CENTABQL CENTROMERE AB QUAL Negative Negative LAB 8068-9(LOINC) Centromere Ab Ser-aCnc <0.2 <1.0 AI Result Comment: Anti-centrom ere antibody is used as in aid in diagnosis of systemic sclerosis. Clinical correlation is required. Test Methodology: Multiplex flow immunoassay. Performed By: #### 49431-9, 85762-6, 26575-7, 74359-9, 90842-0, 02648-2, 62007- 5, 40168-4 #### [facility] CLIA [id number] [address] [place], [place] [address] [place] SM IGG SER-ACNC Collected: 06/04/20 2:13 PM Status: F Source: [facility] Order Comment: Specimen Type : BLOOD SPECIMEN Ordering Facility: [facility] Address: [address] [place] [address] TYPE CODE TESTS RESULT OUT OF RANGE REFERENCE UNITS LAB SMIB SM ANTIBODY QUAL Negative Negative Result Comment: Anti-Sm (Smi th) antibody is used as an aid in diagnosis of systemic lupus erythematosus and its presence is associated with renal disease. A negative result cannot rule out systemic lupus erythematosus. Clinical correlation is required. Test Methodology: Multiplex flow immunoassay. LAB 35213[facility] KAYLA SM IgG Ser-aCnc <0.2 <1.0 AI Performed By: #### 92294-6, 05788-3, 54141-5, 67455-9, 18865-2, 46973-2, 04554- 5, 81482-1 #### [facility] CLIA [id number] [address] [place], [place] [address] [place]LA SCL70 IGG SER IA-ACNC Collected: 06/04/2024 2:13 PM Status: F Source: [facility] Order Comment: Specimen Type : BLOOD SPECIMEN Ordering Facility: [facility] Address: [address] [place] [address] TYPE CODE TESTS RESULT OUT OF RANGE REFERENCE UNITS LAB SCLABQL SCLERODERMA AB QUAL Negative Negative LAB SCLIB SCLERODERMA IGG AB <0.2 <1.0 AI Result Comment: Scl-70/Scler oderma antibody test is used as an aid in diagnosis of systemic sclerosis especially the diffuse cutaneous form. A negative result cannot rule out systemic sclerosis. The final interpretation should consider clinical picture and other test results such as anti-centromere antibody. Test Methodology: Multiplex flow immunoassay. Performed By: #### 66872-3, 48003-2, 84597-5, 86102-1, 65073-8, 92912-5, 65979- 5, 11590-5 #### [facility] CLIA [id number] [address] [place] [address] KAYLA JO1 AB SER-ACNC Collected: 06/04/20 24 2:13 PM Status: F Source: [facility] Order Comment: Specimen Type : BLOOD SPECIMEN Ordering Facility: [facility] Address: [address] [place] [address] TYPE CODE TESTS RESULT OUT OF RANGE REFERENCE UNITS LAB GU3GOPA WILD 1 ANTIBODY QUAL Negative Negative Result Comment: Anti-WILD-1 an tibody is used as an aid in diagnosis of polymyositis and dermatomyositis especially with pulmonary involvement. A negative result cannot rule out polymyositis or dermatomyositis. Clinical correlation is required. Test Methodology: Multiplex flow immunoassay. LAB 23898-7(LOINC) KAYLA Jo1 Ab Ser-aCnc <0.2 <1.0 AI Performed By: #### 26829-0, 06439-1, 41328-8, 11470-1, 31190-2, 03041-6, 58995- 5, 05541-1 #### [facility] CLIA [id number] [address] [place] [address] OF [place] K[place]LA SS-A AB SER-ACNC Collected: 024 2:13 PM Status: F Source: [facility] Order Comment: Specimen Type : BLOOD SPECIMEN Ordering Facility: [facility] Address: [address] [place] [address] TYPE CODE TESTS RESULT OUT OF RANGE REFERENCE UNITS LAB SSAABQL SSA ANTIBODY QUAL Positive Abnormal Negative LAB 95117-4(LOINC) KAYLA SS-A Ab Ser-aCnc 2.0 High <1.0 AI Result Comment: Test Methodo logy: Multiplex flow immunoassay. Performed By: #### 22395-5, 41790-3, 14604-3, 39177-7, 20107-9, 69640-8, 26395- 5, 31415-4 #### [facility] CLIA [id number] [address] [place] [address] KAYLA SUMMER NANNY AB SER-ACNC Collected: 06/04/2024 2:[address] atus: F Source: [facility] Order Comment: Specimen Type : BLOOD SPECIMEN Ordering Facility: [facility] Address: [address] [place] [address] TYPE CODE TESTS RESULT OUT OF RANGE REFERENCE UNITS LAB RNAABQL ANTI-SUMMER NANNY QUAL Negative Negative LAB 02166-9(LOINC) KAYLA SUMMER NANNY Ab Ser-aCnc <0.2 <1.0 AI Performed By: #### 82723-6, 47312-7, 10924-3, 23537-8, 53063-1, 17616-6, 57950- 5, 49426-5 #### [facility] CLIA [id number] [address] [place] [address] SYDNEE BY IFA WITH REFLEX Collected: 06/04 2:13 PM Status: F Source: [facility] Order Comment: Specimen Type : BLOOD SPECIMEN Ordering Facility: [facility] Address: [address] [place] [address] TYPE CODE TESTS RESULT OUT OF RANGE REFERENCE UNITS LAB 8061-4(LOINC) SYDNEE Ser Ql Negative Negative Result Comment: Anti-nuclear antibody test is used as an aid in diagnosis of systemic autoimmune diseases. Where positive and clinically warranted, follow-up using disease-specific testing is recommended. Low positive titers are not uncommon with advanced age, certain chronic infections, and malignancies among others. Test methodology: Indirect fluorescence immunoassay (IFA) using HEp-2 cells. Performed By: #### ANAIFR ## ## [facility] CLIA [id number] [address] [place] [address] PROGRESS Observed: 06/04/2024 1:15 PM Status: COMPLETED Source: [facility] HNO ID: [id number] Author: ROBIN WHITEHEAD MD Service: ? Author Type: Physician Type: Progress Notes Filed: 06/04/2024 14:05 Note Text: Patient Name: Malu Kitchen PRIMARY CARE PHYSICIAN: Andra Rodrigues MD Date of visit: June 04, 2024 COMMUNICATION WILL BE SENT VIA SHARED MEDICAL RECORDS OR US MAIL. Subjective: Malu Kitchen is a 78 year old female who is new to this clinic for evaluation of pulmonary hypertension. This is a referral sent by Dr Huizar of cardiology. In summary patient has history of reported COPD, Chronic HFpEF, and A.Fib. Appointment started today discussing her diagnosis of COPD, which was given to her 6 years ago. Interestingly though she tells me she has been dealing with SOB for much longer, over 10 years. Her dyspnea has been progressive in nature. Currently she notices significant exertional dyspnea with stair climbing, moderate walking distances, or uphill. She denies dyspnea with basic ADLs, basic chores, or walking around in her house. She does have occasional chest pain, follows cardiology closely. + palpitations (hx of permanent A.Fib). Denies pedal edema (since starting lasix - currently on 40mg BID). Denies syncope, occasional lightheadedness when standing up. She is currently on Trelegy daily and prn albuterol. Follows with Dr Jeremie leiva in [place] (pulmonary). She is on supplemental O2 (4LNC), but only wears qHS. + heavy snoring. She has never been tested for MARKELL, but she believes she may have it. Recently hospitalized for pneumonia/COPD exacerbation. Hospitalized in [place]. Treated with course of abx with clinical improvement. Has history of RA, recently started on prednisone daily but is also on additional therapy (not currently on our med list) - Dyana? Hx of tobacco abuse, smoked 30 years. Quit 2000. Occupational hx includes [employer] for 31 years. 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 QUESTIONS SURROUNDING PULMONARY HYPERTENSION RISK: Prior diet pill use? Only few months (doesn't recall name) Prior use of amphetamines? No H/o DVT or PE? No Prior liver disease? No Prior HIV/Hepatitis B or C risk?No H/o splenectomy? No Prior thyroid disease? Yes - on synthroid Prior lung disease? COPD Family h/o PAH? No Snoring or witnessed apneas? Yes - above Arthralgias? Hx of RA Skin rash or lesions? No Raynaud's symptoms? No PMHx: PAST MEDICAL HISTORY Diagnosis Date Acquired hypothyroidism 01/23/2022 Acute gastritis without mention of hemorrhage Acute, but ill-defined, cerebrovascular disease AMNESIA (RETROGRADE) TRANSIENT GLOBAL 07/15/2007 This was along with the TIA that she had. Atrial fibrillation (HCC) Basal cell carcinoma 12/16/2023 scalp Bleeding gastrointestinal 09/2020 Centrilobular emphysema (HCC) 04/13/2020 Patient had PFTs in 2019 and was found to have moderately severe large air way vent defect, which was irreversible. This was associated with trapping of air And mild reduction in the diffusion capacity. She has more that 60 pack years smoking, but stopped in 2000 She is on Anoro ellipta and is doing well, good exercise tolerance does the bike mostly. Does good exercise at work, around 18,000 Complete rupture of rotator cuff 2006 Congestive heart failure, unspecified HF chronicity, unspecified heart failure type ([facility]) 05/12/2023 Cystocele 07/29/2013 Diarrhea Diverticulosis of colon (without mention of hemorrhage) Gastrointestinal hemorrhage associated with anorectal source 11/22/2020 Was admitted in September 2020 with the red blood per rectum. At that time INR was 1.7 as she is on Coumadin, her hemoglobin was stable so no blood transfusion was required. She had a CT scan and contrast and was given IV fluids after which she developed some shortness of breath and was given Lasix and she was sent home the next day after an echo. 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 Chao at [facility] [place]. She is on trilogy Ellipta. She has quit smoking in the past we encouraged her to continue to quit smoking. Stroke (HCC) x 2 last stroke 02/14/2016 TIA (transient ischemic attack) 12/16/2007 Unspecified inflammatory polyarthropathy MEDICATIONS: HYDROcodone-acetaminophen (NORCO) 5-325 mg per tablet Take 1 tablet by mouth every 8 hours as needed for pain for up to 30 days. zolpidem (AMBIEN) 10 mg Take 1 tablet by mouth at bedtime as needed for up to 90 days. empagliflozin (JARDIANCE) 10 mg tablet Take 1 tablet by mouth daily with breakfast. gabapentin (NEURONTIN) 300 mg capsule Take 1 capsule by mouth two times a day. pantoprazole DR (PROTONIX) 40 mg tablet Take 1 tablet by mouth daily before breakfast. Take on empty stomach, 1/2 hr before meal. dilTIAZem CD (CARDIZEM CD) 180 mg 24 hr capsule Take 1 capsule by mouth once daily. potassium chloride SR (MICRO-K) 10 mEq CR capsule Take 2 capsules by mouth two times a day. warfarin (COUMADIN) 1 mg tablet Take 1 tablet by mouth once daily. Please take daily as directed furosemide (LASIX) 40 mg tablet Take 1 tablet by mouth once daily. Takes twice daily if with increased edema atenolol (TENORMIN) 25 mg tablet Take 1 tablet by mouth two times a day. levothyroxine (SYNTHROID) 25 mcg tablet Take 1 tablet by mouth daily before breakfast. TRELEGY ELLIPTA 100-62.5-25 mcg inhalation powder Inhale 1 Puff as instructed once daily. Magnesium 30 mg tablet Take 1 tablet by mouth twice daily. calcium carbonate/vitamin d3(CALCIUM 600 + D(3) 600 MG (1,500)-200 UNIT TAB) Take one(1) tablet twice daily BY MOUTH. DAILY MULTIPLE TAB Take one(1) tablet daily BY MOUTH. metOLazone (ZAROXOLYN) 2.5 mg tablet Take 1 tablet by mouth every other day. COMPOUNDED PRESCRIPTION Compression stockings. 15 to 20 pressure (Patient taking differently: Compression stockings. 15 to 20 pressure Uses as needed for edema) Allergies: Adhesive Tape (Rosins), Ibuprofen, and Vicodin [Hydrocodone-Acetaminophen] ROS: GENERAL: (-) fevers, (-) chills, (-) night sweats, (-) nausea/vomiting, (-) weight loss, (-) weight gain HEENT: (-) runny nose, (-) sore throat, (-) post-nasal drip RESPIRATORY: As above in subjective CARDIOVASCULAR: (-) chest pain, (-) palpitations, (-) LE edema. All other 10 point ROS reviewed and negative except for that mentioned above. PHYSICAL EXAM: BP 135/76 Pulse 64 Temp (Src) 96.8 (Temporal) Resp 19 Ht 5' 1 (1.55m) Wt 129 lb 8 oz (58.7kg) SpO2 97% BMI 24.48 kg/(m2). Last Wt 06/04/24 58.7 kg (129 lb 8 oz) 05/28/24 57.9 kg (127 lb 10.3 oz) 03/17/24 58.4 kg (128 lb 12 oz) 01/19/24 58.2 kg (128 lb 3.2 oz) Exam: General: AAOx3, no distress, Resp: diminished, clear breath sounds bilaterally, no wheezing, rhonchi, or crackles noted, CV: RRR, no MGR noted Abd: soft, NT, ND, +BS Ext: no pedal edema noted, warm to touch, no cyanosis Labs / Imaging / Diagnostic Studies: Diagnostic tests reviewed for today's visit, films/specimens were personally reviewed by me. CXR 07/2023 IMPRESSION: Stable exam with chronic changes as described above and no definite acute radiographic abnormality. There is hypoinflation of the lungs with crowded lung markings in both lung bases. There is a small area of linear atelectasis in the left lung base. TTE 2023 CONCLUSIONS: - Exam indication: Re-evaluation of known pulmonary hypertension (to guide therapy) - The left ventricle is normal in size. There is mild concentric left ventricular hypertrophy. Left ventricular systolic function is normal. EF = 57 ? 5% (2D biplane) Left ventricular diastolic function was not evaluated due to AF. - The right ventricle is mildly dilated. Right ventricular systolic function is normal. - The left atrial cavity is mildly dilated. - The right atrial cavity is dilated. - 1-2+ MR. - Estimated right ventricular systolic pressure is 52 mmHg consistent with moderate pulmonary hypertension. Estimated right atrial pressure is 8 mmHg based on IVC assessment. - Exam was compared with the prior OUTSIDE echocardiographic exam performed on 11/22/21([facility]). Report not available Assessment: - Pulmonary hypertension with features of chronic RV dysfunction on echo - Suspect WHO II/III in etiology - Chronic HFpEF - A.Fib - Reported COPD - Hx of RA on immunotherapy - Possible MARKELL - Significant exertional dyspnea - CKD Plan: - Overall, patient does indeed have clinical risk factors, symptoms, and imaging supportive of underlying pulmonary hypertension, specifically findings on TTE with presence of significant TR and presence of RV dysfunction/dilatation. Etiology I suspect is WHO Group II/III given her underlying comorbidities of reported COPD, chronic HFpEF, and permanent A.Fib. That being said, given hx of RA, she does have risk factors for PAH. - At this time recommend further evaluation including RHC. Discussed risks, benefit, and alternatives to RHC> Patient agrees, will arrange - Recommend additional evaluation and work-up behind potential etiology including CT chest (high resolution CT), VQ scan, PFTs, and AI/infectious serologies. - Obtain 6MWT and NTproBNP - Agree with trelegy daily and prn albuterol. Defer additional management of COPD to patients primary project management it specialist Dr Chao - Continue ongoing follow up with cardiology Return in about 6 months (around 12/02/2024). Robin Whitehead MD June 04, 2024 1:52 PM CNOV Observed: 06/04/2024 1:00 PM Status: COMPLETED Source: [facility] Office Visit ([facility]) MALU KITCHEN ([id number]) 1945 F Vendor Date Time Provider Department 06/04/24 1:00 PM ROBIN WHITEHEAD [facility] During your visit today, we recorded the following information about you: Temperature Pulse Respiration Blood pressure 96.8 degrees 64/minute 19/minute 135/76 Weight Height 58.7 kg 1.549 m Robin Whitehead MD 06/04/2024 2:05 PM Signed Patient Name: Malu Kitchen PRIMARY CARE PHYSICIAN: Andra Rodrigues MD Date of visit: June 04, 2024 COMMUNICATION WILL BE SENT VIA SHARED MEDICAL RECORDS OR US MAIL. Subjective: Malu Kitchen is a 78 year old female who is new to this clinic for evaluation of pulmonary hypertension. This is a referral sent by Dr Huizar of cardiology. In summary patient has history of reported COPD, Chronic HFpEF, and A.Fib. Appointment started today discussing her diagnosis of COPD, which was given to her 6 years ago. Interestingly though she tells me she has been dealing with SOB for much longer, over 10 years. Her dyspnea has been progressive in nature. Currently she notices significant exertional dyspnea with stair climbing, moderate walking distances, or uphill. She denies dyspnea with basic ADLs, basic chores, or walking around in her house. She does have occasional chest pain, follows cardiology closely. + palpitations (hx of permanent A.Fib). Denies pedal edema (since starting lasix - currently on 40mg BID). Denies syncope, occasional lightheadedness when standing up. She is currently on Trelegy daily and prn albuterol. Follows with Dr Jeremie leiva in [place] (pulmonary). She is on supplemental O2 (4LNC), but only wears qHS. + heavy snoring. She has never been tested for MARKELL, but she believes she may have it. Recently hospitalized for pneumonia/COPD exacerbation. Hospitalized in [place]. Treated with course of abx with clinical improvement. Has history of RA, recently started on prednisone daily but is also on additional therapy (not currently on our med list) - Dyana? Hx of tobacco abuse, smoked 30 years. Quit 2000. Occupational hx includes [employer] for 31 years. 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 QUESTIONS SURROUNDING PULMONARY HYPERTENSION RISK: Prior diet pill use? Only few months (doesn't recall name) Prior use of amphetamines? No H/o DVT or PE? No Prior liver disease? No Prior HIV/Hepatitis B or C risk?No H/o splenectomy? No Prior thyroid disease? Yes - on synthroid Prior lung disease? COPD Family h/o PAH? No Snoring or witnessed apneas? Yes - above Arthralgias? Hx of RA Skin rash or lesions? No Raynaud's symptoms? No PMHx: PAST MEDICAL HISTORY Diagnosis Date Acquired hypothyroidism 01/23/2022 Acute gastritis without mention of hemorrhage Acute, but ill-defined, cerebrovascular disease AMNESIA (RETROGRADE) TRANSIENT GLOBAL 07/15/2007 This was along with the TIA that she had. Atrial fibrillation (HCC) Basal cell carcinoma 12/16/2023 scalp Bleeding gastrointestinal 09/2020 Centrilobular emphysema (HCC) 04/13/2020 Patient had PFTs in 2019 and was found to have moderately severe large air way vent defect, which was irreversible. This was associated with trapping of air And mild reduction in the diffusion capacity. She has more that 60 pack years smoking, but stopped in 2000 She is on Anoro ellipta and is doing well, good exercise tolerance does the bike mostly. Does good exercise at work, around 18,000 Complete rupture of rotator cuff 2006 Congestive heart failure, unspecified HF chronicity, unspecified heart failure type (HCC) 05/12/2023 Cystocele 07/29/2013 Diarrhea Diverticulosis of colon (without mention of hemorrhage) Gastrointestinal hemorrhage associated with anorectal source 11/22/2020 Was admitted in September 2020 with the red blood per rectum. At that time INR was 1.7 as she is on Coumadin, her hemoglobin was stable so no blood transfusion was required. She had a CT scan and contrast and was given IV fluids after which she developed some shortness of breath and was given Lasix and she was sent home the next day after an echo. 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 Chao at [facility] [place]. She is on trilogy Ellipta. She has quit smoking in the past we encouraged her to continue to quit smoking. Stroke (HCC) x 2 last stroke 02/14/2016 TIA (transient ischemic attack) 12/16/2007 Unspecified inflammatory polyarthropathy MEDICATIONS: HYDROcodone-acetaminophen (NORCO) 5-325 mg per tablet Take 1 tablet by mouth every 8 hours as needed for pain for up to 30 days. zolpidem (AMBIEN) 10 mg Take 1 tablet by mouth at bedtime as needed for up to 90 days. empagliflozin (JARDIANCE) 10 mg tablet Take 1 tablet by mouth daily with breakfast. gabapentin (NEURONTIN) 300 mg capsule Take 1 capsule by mouth two times a day. pantoprazole DR (PROTONIX) 40 mg tablet Take 1 tablet by mouth daily before breakfast. Take on empty stomach, 1/2 hr before meal. dilTIAZem CD (CARDIZEM CD) 180 mg 24 hr capsule Take 1 capsule by mouth once daily. potassium chloride SR (MICRO-K) 10 mEq CR capsule Take 2 capsules by mouth two times a day. warfarin (COUMADIN) 1 mg tablet Take 1 tablet by mouth once daily. Please take daily as directed furosemide (LASIX) 40 mg tablet Take 1 tablet by mouth once daily. Takes twice daily if with increased edema atenolol (TENORMIN) 25 mg tablet Take 1 tablet by mouth two times a day. levothyroxine (SYNTHROID) 25 mcg tablet Take 1 tablet by mouth daily before breakfast. TRELEGY ELLIPTA 100-62.5-25 mcg inhalation powder Inhale 1 Puff as instructed once daily. Magnesium 30 mg tablet Take 1 tablet by mouth twice daily. calcium carbonate/vitamin d3(CALCIUM 600 + D(3) 600 MG (1,500)-200 UNIT TAB) Take one(1) tablet twice daily BY MOUTH. DAILY MULTIPLE TAB Take one(1) tablet daily BY MOUTH. metOLazone (ZAROXOLYN) 2.5 mg tablet Take 1 tablet by mouth every other day. COMPOUNDED PRESCRIPTION Compression stockings. 15 to 20 pressure (Patient taking differently: Compression stockings. 15 to 20 pressure Uses as needed for edema) Allergies: Adhesive Tape (Rosins), Ibuprofen, and Vicodin [Hydrocodone-Acetaminophen] ROS: GENERAL: (-) fevers, (-) chills, (-) night sweats, (-) nausea/vomiting, (-) weight loss, (-) weight gain HEENT: (-) runny nose, (-) sore throat, (-) post-nasal drip RESPIRATORY: As above in subjective CARDIOVASCULAR: (-) chest pain, (-) palpitations, (-) LE edema. All other 10 point ROS reviewed and negative except for that mentioned above. PHYSICAL EXAM: BP 135/76 Pulse 64 Temp (Src) 96.8 (Temporal) Resp 19 Ht 5' 1 (1.55m) Wt 129 lb 8 oz (58.7kg) SpO2 97% BMI 24.48 kg/(m2). Last Wt 06/04/24 58.7 kg (129 lb 8 oz) 05/28/24 57.9 kg (127 lb 10.3 oz) 03/17/24 58.4 kg (128 lb 12 oz) 01/19/24 58.2 kg (128 lb 3.2 oz) Exam: General: AAOx3, no distress, Resp: diminished, clear breath sounds bilaterally, no wheezing, rhonchi, or crackles noted, CV: RRR, no MGR noted Abd: soft, NT, ND, +BS Ext: no pedal edema noted, warm to touch, no cyanosis Labs / Imaging / Diagnostic Studies: Diagnostic tests reviewed for today's visit, films/specimens were personally reviewed by me. CXR 07/2023 IMPRESSION: Stable exam with chronic changes as described above and no definite acute radiographic abnormality. There is hypoinflation of the lungs with crowded lung markings in both lung bases. There is a small area of linear atelectasis in the left lung base. TTE 2023 CONCLUSIONS: - Exam indication: Re-evaluation of known pulmonary hypertension (to guide therapy) - The left ventricle is normal in size. There is mild concentric left ventricular hypertrophy. Left ventricular systolic function is normal. EF = 57 ? 5% (2D biplane) Left ventricular diastolic function was not evaluated due to AF. - The right ventricle is mildly dilated. Right ventricular systolic function is normal. - The left atrial cavity is mildly dilated. - The right atrial cavity is dilated. - 1-2+ MR. - Estimated right ventricular systolic pressure is 52 mmHg consistent with moderate pulmonary hypertension. Estimated right atrial pressure is 8 mmHg based on IVC assessment. - Exam was compared with the prior OUTSIDE echocardiographic exam performed on 11/22/21([facility]). Report not available Assessment: - Pulmonary hypertension with features of chronic RV dysfunction on echo - Suspect WHO II/III in etiology - Chronic HFpEF - A.Fib - Reported COPD - Hx of RA on immunotherapy - Possible MARKELL - Significant exertional dyspnea - CKD Plan: - Overall, patient does indeed have clinical risk factors, symptoms, and imaging supportive of underlying pulmonary hypertension, specifically findings on TTE with presence of significant TR and presence of RV dysfunction/dilatation. Etiology I suspect is WHO Group II/III given her underlying comorbidities of reported COPD, chronic HFpEF, and permanent A.Fib. That being said, given hx of RA, she does have risk factors for PAH. - At this time recommend further evaluation including RHC. Discussed risks, benefit, and alternatives to RHC> Patient agrees, will arrange - Recommend additional evaluation and work-up behind potential etiology including CT chest (high resolution CT), VQ scan, PFTs, and AI/infectious serologies. - Obtain 6MWT and NTproBNP - Agree with trelegy daily and prn albuterol. Defer additional management of COPD to patients primary project management it specialist Dr Chao - Continue ongoing follow up with cardiology Return in about 6 months (around 12/02/2024). Robin Whitehead MD June 04, 2024 1:52 PM Referring Provider: ROBIN WHITEHEAD [[id number]] Allergies As of Date: 06/04/2024 Noted Allergy Reaction ADHESIVE TAPE (ROSINS) 08/22/2005 2 - Rash IBUPROFEN 06/06/2014 Comments: Pt on coumadin VICODIN (HYDROCODONE-ACETAMINOPHE*12/15/2014 8 - GI Upset Date Reviewed: 06/04/2024 Reviewed by: Robin Whitehead MD - Fully Assessed Reason for Visit: Consult [173] Primary Visit Diagnosis:Other secondary pulmonary hypertension (HCC) [I27.29] Other Visit Diagnoses:Interstitial pulmonary disease (HCC) [J84.9] Pulmonary hypertension due to lung diseases and hypoxia (HCC) [I27.23] Congestive heart failure, unspecified HF chronicity, unspecified heart failure type (HCC) [I50.9] Encounter for screening for HIV [Z11.4] Order(s):NT PRO BNP [SQNTBNP] Order #: [id number] FUTURE ANTI KAYLA ID [SQENAID] Order #: [id number] FUTURE SYDNEE BY IFA WITH REFLEX [SQANAIFR] Order #: [id number] FUTURE NM LUNG VENT / PERF VQ [[id number]] Order #: [id number] FUTURE CT CHEST WO IVCON [[id number]] Order #: [id number] FUTURE CARDIAC MICRO PALEONTOLOGIST ORDER [[id number]] Order #: [id number]: 1 HIV 1/2 COMBO WITH REFLEX TO DIFFERENTIATION [SQHIV12] Order #: [id number] FUTURE SIX MINUTE WALK [] Order #: [id number]: 1 FUTURE SPIROMETRY BASELINE ONLY [] Order #: [id number]: 1 FUTURE LUNG DIFFUSION CAPACITY (DLCO) [] Order #: [id number]: 1 FUTURE Prescriptions as of 06/04/2024 - HYDROcodone-acetaminophen (NORCO) 5-325 mg per tablet Take 1 tablet by mouth every 8 hours as needed for pain for up to 30 days. - zolpidem (AMBIEN) 10 mg Take 1 tablet by mouth at bedtime as needed for up to 90 days. - empagliflozin (JARDIANCE) 10 mg tablet Take 1 tablet by mouth daily with breakfast. - gabapentin (NEURONTIN) 300 mg capsule Take 1 capsule by mouth two times a day. - pantoprazole DR (PROTONIX) 40 mg tablet Take 1 tablet by mouth daily before breakfast. Take on empty stomach, 1/2 hr before meal. - metOLazone (ZAROXOLYN) 2.5 mg tablet Take 1 tablet by mouth every other day. - dilTIAZem CD (CARDIZEM CD) 180 mg 24 hr capsule Take 1 capsule by mouth once daily. - potassium chloride SR (MICRO-K) 10 mEq CR capsule Take 2 capsules by mouth two times a day. - warfarin (COUMADIN) 1 mg tablet Take 1 tablet by mouth once daily. Please take daily as directed - furosemide (LASIX) 40 mg tablet Take 1 tablet by mouth once daily. Takes twice daily if with increased edema - atenolol (TENORMIN) 25 mg tablet Take 1 tablet by mouth two times a day. - levothyroxine (SYNTHROID) 25 mcg tablet Take 1 tablet by mouth daily before breakfast. - TRELEGY ELLIPTA 100-62.5-25 mcg inhalation powder Inhale 1 Puff as instructed once daily. - COMPOUNDED PRESCRIPTION Compression stockings. 15 to 20 pressure - Magnesium 30 mg tablet Take 1 tablet by mouth twice daily. - calcium carbonate/vitamin d3(CALCIUM 600 + D(3) 600 MG (1,500)-200 UNIT TAB) Take one(1) tablet twice daily BY MOUTH. - DAILY MULTIPLE TAB Take one(1) tablet daily BY MOUTH. Problem List As Of Date 06/04/2024 Noted Resolved Osteoarthrosis, unspecified whether generalized* 03/11/2017 AMNESIA (RETROGRADE) TRANSIENT GLOBAL [G45.4] 07/15/2007 06/26/2023 HIGH BLOOD PRESSURE-NO HYPERTENSN [R03.0] 07/15/2007 03/11/2017 INSOMNIA [G47.00] 07/15/2007 TOBACCO USE - PERSONAL HX [Z87.891] 07/15/2007 03/11/2017 Hyperlipidemia [E78.5] 08/20/2007 TIA (transient ischemic attack) [G45.9] 12/16/2007 06/26/2023 Acute gastritis with hemorrhage [K29.01] 10/13/2008 03/11/2017 Acute gastritis without mention of hemorrhage [*10/13/2008 03/11/2017 Hyperlipemia [E78.5] 06/16/2009 02/02/2016 Atrial Fibrillation [I48.91] 06/16/2009 12/16/2014 Sicca syndrome (HCC) [M35.00] 03/11/2017 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] 03/11/2017 Generalized Osteoarthrosis, Involving Hand [M15* Diarrhea [R19.7] 10/03/2009 12/16/2014 Diverticulosis of colon (without mention of hem*10/03/2009 06/26/2023 Internal hemorrhoids without mention of complic*10/03/2009 03/11/2017 Mitral regurgitation [I34.0] 09/02/2011 Right wrist pain [M25.531] 12/15/2012 03/11/2017 Uterovaginal prolapse [N81.4] 07/29/2013 03/11/2017 Cystocele [RQI1750] 07/29/2013 06/26/2023 Rotator cuff tear arthropathy of both shoulders*08/24/2013 PMB (postmenopausal bleeding) [N95.0] 09/07/2013 03/11/2017 Atrial fibrillation (HCC) [I48.91] 12/16/2014 Psoas tendinitis of right side [M76.11] 12/05/2015 03/11/2017 Gastroesophageal reflux disease without esophag*03/11/2016 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 *07/08/2016 Bilateral hip pain [M25.551, M25.552] 03/11/2017 S/P lumbar fusion [Z98.1] 06/02/2017 Abrasion of left forearm [S50.812A] 06/26/2017 03/18/2023 Laceration of left forearm [S51.812A] 06/26/2017 03/18/2023 Contusion of left hand [S60.222A] 06/26/2017 03/18/2023 Hematoma of left hip [S70.02XA] 06/26/2017 06/26/2023 Contusion of left knee [S80.02XA] 06/26/2017 03/18/2023 Primary osteoarthritis involving multiple joint*03/24/2018 Centrilobular emphysema (HCC) [J43.2] 04/13/2020 Gastrointestinal hemorrhage associated with ano*11/22/2020 06/26/2023 Iron deficiency anemia due to chronic blood los*11/22/2020 Pinched nerve in neck [G58.9] 01/30/2021 06/05/2021 Simple chronic bronchitis (HCC) [J41.0] 03/26/2021 Nonrheumatic tricuspid valve regurgitation [I36*03/26/2021 Congestive heart failure, unspecified HF chroni*05/12/2023 Acute respiratory failure with hypoxia and hype*05/12/2023 03/17/2024 Pulmonary hypertension due to lung diseases and*06/23/2023 Acquired hypothyroidism [E03.9] 01/23/2022 Rheumatoid arthritis with positive rheumatoid f*09/17/2023 Disposition: Return in about 6 months (around 12/02/2024). Follow-up and Disposition History for Encounter Date Provider Department Center 06/04/2024 [id number] WHITEHEAD [facility] Encounter Status:Closed by ROBIN WHITEHEAD on 06/04/24 CNPN Observed: 06/03/2024 12:00 AM Status: COMPLETED Source: [facility] Telephone (INTMWS) MALU KITCHEN ([id number]) 1945 F Vendor Date Time Provider Department 06/03/24 ANDRA RODRIGUES During your visit today, we recorded the following information about you: Zahra Prater LPN 06/03/2024 2:30 PM Signed Last INR: 1.8 06/03/2024 Current dose of coumadin is: 1 mg daily Last date of dose change: 01/09/24. Previous INR (date and result): 05/27/24 was 2.0 Additional Clinical Information or narrative: INR goal is 2-3. Pt findings are negative. She did hold coumadin when in the hospital. She just resumed this on 05/23/24. She does check this weekly with a home INR machine Andra Myles MD 06/03/2024 3:50 PM Signed Continue the same and recheck in 1 week Andra Quevedo MD, Mary, LPN 06/03/2024 4:00 PM Signed Called and updated patient, voiced understanding. Lizeth Burden LPN June 03, 2024 3:59 PM Allergies As of Date: 06/03/2024 Noted Allergy Reaction ADHESIVE TAPE (ROSINS) 08/22/2005 2 - Rash IBUPROFEN 06/06/2014 Comments: Pt on coumadin VICODIN (HYDROCODONE-ACETAMINOPHE*12/15/2014 8 - GI Upset Date Reviewed: 05/28/2024 Reviewed by: Jewels Augustin APRN.TRAINING LEAD - Fully Assessed Reason for Visit: Anticoagulation [8] Order(s):PROTHROMBIN TIME [SQPT] Order #: [id number] Prescriptions as of 06/03/2024 - HYDROcodone-acetaminophen (NORCO) 5-325 mg per tablet Take 1 tablet by mouth every 8 hours as needed for pain for up to 30 days. - zolpidem (AMBIEN) 10 mg Take 1 tablet by mouth at bedtime as needed for up to 90 days. - empagliflozin (JARDIANCE) 10 mg tablet Take 1 tablet by mouth daily with breakfast. - gabapentin (NEURONTIN) 300 mg capsule Take 1 capsule by mouth two times a day. - pantoprazole DR (PROTONIX) 40 mg tablet Take 1 tablet by mouth daily before breakfast. Take on empty stomach, 1/2 hr before meal. - metOLazone (ZAROXOLYN) 2.5 mg tablet Take 1 tablet by mouth every other day. - dilTIAZem CD (CARDIZEM CD) 180 mg 24 hr capsule Take 1 capsule by mouth once daily. - potassium chloride SR (MICRO-K) 10 mEq CR capsule Take 2 capsules by mouth two times a day. - warfarin (COUMADIN) 1 mg tablet Take 1 tablet by mouth once daily. Please take daily as directed - furosemide (LASIX) 40 mg tablet Take 1 tablet by mouth once daily. Takes twice daily if with increased edema - atenolol (TENORMIN) 25 mg tablet Take 1 tablet by mouth two times a day. - levothyroxine (SYNTHROID) 25 mcg tablet Take 1 tablet by mouth daily before breakfast. - TRELEGY ELLIPTA 100-62.5-25 mcg inhalation powder Inhale 1 Puff as instructed once daily. - COMPOUNDED PRESCRIPTION Compression stockings. 15 to 20 pressure - Magnesium 30 mg tablet Take 1 tablet by mouth twice daily. - calcium carbonate/vitamin d3(CALCIUM 600 + D(3) 600 MG (1,500)-200 UNIT TAB) Take one(1) tablet twice daily BY MOUTH. - DAILY MULTIPLE TAB Take one(1) tablet daily BY MOUTH. Problem List As Of Date 06/03/2024 Noted Resolved Osteoarthrosis, unspecified whether generalized* 03/11/2017 AMNESIA (RETROGRADE) TRANSIENT GLOBAL [G45.4] 07/15/2007 06/26/2023 HIGH BLOOD PRESSURE-NO HYPERTENSN [R03.0] 07/15/2007 03/11/2017 INSOMNIA [G47.00] 07/15/2007 TOBACCO USE - PERSONAL HX [Z87.891] 07/15/2007 03/11/2017 Hyperlipidemia [E78.5] 08/20/2007 TIA (transient ischemic attack) [G45.9] 12/16/2007 06/26/2023 Acute gastritis with hemorrhage [K29.01] 10/13/2008 03/11/2017 Acute gastritis without mention of hemorrhage [*10/13/2008 03/11/2017 Hyperlipemia [E78.5] 06/16/2009 02/02/2016 Atrial Fibrillation [I48.91] 06/16/2009 12/16/2014 Sicca syndrome (HCC) [M35.00] 03/11/2017 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] 03/11/2017 Generalized Osteoarthrosis, Involving Hand [M15* Diarrhea [R19.7] 10/03/2009 12/16/2014 Diverticulosis of colon (without mention of hem*10/03/2009 06/26/2023 Internal hemorrhoids without mention of complic*10/03/2009 03/11/2017 Mitral regurgitation [I34.0] 09/02/2011 Right wrist pain [M25.531] 12/15/2012 03/11/2017 Uterovaginal prolapse [N81.4] 07/29/2013 03/11/2017 Cystocele [XYQ0571] 07/29/2013 06/26/2023 Rotator cuff tear arthropathy of both shoulders*08/24/2013 PMB (postmenopausal bleeding) [N95.0] 09/07/2013 03/11/2017 Atrial fibrillation (HCC) [I48.91] 12/16/2014 Psoas tendinitis of right side [M76.11] 12/05/2015 03/11/2017 Gastroesophageal reflux disease without esophag*03/11/2016 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 *07/08/2016 Bilateral hip pain [M25.551, M25.552] 03/11/2017 S/P lumbar fusion [Z98.1] 06/02/2017 Abrasion of left forearm [S50.812A] 06/26/2017 03/18/2023 Laceration of left forearm [S51.812A] 06/26/2017 03/18/2023 Contusion of left hand [S60.222A] 06/26/2017 03/18/2023 Hematoma of left hip [S70.02XA] 06/26/2017 06/26/2023 Contusion of left knee [S80.02XA] 06/26/2017 03/18/2023 Primary osteoarthritis involving multiple joint*03/24/2018 Centrilobular emphysema (HCC) [J43.2] 04/13/2020 Gastrointestinal hemorrhage associated with ano*11/22/2020 06/26/2023 Iron deficiency anemia due to chronic blood los*11/22/2020 Pinched nerve in neck [G58.9] 01/30/2021 06/05/2021 Simple chronic bronchitis (HCC) [J41.0] 03/26/2021 Nonrheumatic tricuspid valve regurgitation [I36*03/26/2021 Congestive heart failure, unspecified HF chroni*05/12/2023 Acute respiratory failure with hypoxia and hype*05/12/2023 03/17/2024 Pulmonary hypertension due to lung diseases and*06/23/2023 Acquired hypothyroidism [E03.9] 01/23/2022 Rheumatoid arthritis with positive rheumatoid f*09/17/2023 Encounter Status:Closed by LIZETH BURDEN on 06/03/24 PROGRESS Observed: 05/28/2024 8:50 AM Status: COMPLETED Source: [facility] HN ID: [id number] Author: JEWELS AUGUSTIN APRN.TRAINING LEAD Service: ? Author Type: Nurse Practitioner Type: Progress Notes Filed: 05/28/2024 09:18 Note Text: Transitional Care Management Progress Note The patients TCM visit was performed within the 7 days of discharge. TCM Eligibility Documentation The following information was gathered during the initial Patient Outreach Encounter. No data to display If no data exists please enter it manually. If data exists please delete date of discharge and date of initial contact seen below. Patient's Date of discharge: 05/22/2024 Date of initial coordinator contact after discharge: Patient made contact on 05/24. Discharge diagnosis: Pneumonia Medication review completed Yes with visit today. Jewels Augustin APRN.TRAINING LEAD Provider Documentation: In follow-up of hospitalization, Malu Kitchen is a 78 year old female with the chief complaint of hospital discharge follow up. I have reviewed the patient?s last hospital course including diagnostic testing performed during this hospitalization, their discharge medications, and my assessment and plan with the patient and any family members present at today?s visit. HPI: Malu is a 78 year old female established patient of Andra Rodrigues MD. Here today for hospital discharge follow up. Admitted to [facility] 05/19/2024 for right lower lobe pneumonia. Discharged Tuesday 05/22. Patient made contact with the office on 05/24. No medication changes other than prescribed a short term antibiotic. Records available reviewed in care everywhere. History of prior pneumonia, COPD, CHF. She reports today feeling well. Back to baseline of wearing 4 l/m o2 at night, has not neeed her o2 during the day since discharge. Feeling better now. Sleeping better. Appetite is better. Still some cough but improving. Slight short of breath on activity but resolved with rest. Still pretty tired at times but improving. No chest pain or chest tightness. Done with her antibiotics. PAST MEDICAL HISTORY: Reviewed and updated PAST MEDICAL HISTORY Diagnosis Date Acquired hypothyroidism 01/23/2022 Acute gastritis without mention of hemorrhage Acute, but ill-defined, cerebrovascular disease AMNESIA (RETROGRADE) TRANSIENT GLOBAL 07/15/2007 This was along with the TIA that she had. Atrial fibrillation (HCC) Basal cell carcinoma 12/16/2023 scalp Bleeding gastrointestinal 09/2020 Centrilobular emphysema (HCC) 04/13/2020 Patient had PFTs in 2019 and was found to have moderately severe large air way vent defect, which was irreversible. This was associated with trapping of air And mild reduction in the diffusion capacity. She has more that 60 pack years smoking, but stopped in 2000 She is on Anoro ellipta and is doing well, good exercise tolerance does the bike mostly. Does good exercise at work, around 18,000 Complete rupture of rotator cuff 2006 Congestive heart failure, unspecified HF chronicity, unspecified heart failure type (HCC) 05/12/2023 Cystocele 07/29/2013 Diarrhea Diverticulosis of colon (without mention of hemorrhage) Gastrointestinal hemorrhage associated with anorectal source 11/22/2020 Was admitted in September 2020 with the red blood per rectum. At that time INR was 1.7 as she is on Coumadin, her hemoglobin was stable so no blood transfusion was required. She had a CT scan and contrast and was given IV fluids after which she developed some shortness of breath and was given Lasix and she was sent home the next day after an echo. The echo showed she had known traumatic tricuspid r Generalized osteoarthrosis, involving hand Hematoma of left hip 06/26/2017 Osteoarthrosis, unspecified whether generalized or localized, other specified sites Other unspecified back disorder 1998 Patient has chronic back pain,she has had a spinal fusion at L-5 and problems with her discs PMH - PAST MEDICAL HISTORY OF hypertension PMH - PAST MEDICAL HISTORY OF hypercholesterolemia Pulmonary hypertension due to lung diseases and hypoxia (HCC) 06/23/2023 Sicca syndrome (HCC) Simple chronic bronchitis (HCC) 03/26/[address] Chao at [facility]. She is on trilogy Ellipta. She has quit smoking in the past we encouraged her to continue to quit smoking. Stroke (HCC) x 2 last stroke 02/14/2016 TIA (transient ischemic attack) 12/16/2007 Unspecified inflammatory polyarthropathy ALLERGIES: Reviewed and updated ALLERGIES Allergen Reactions Adhesive Tape (Kasey* Rash Ibuprofen Pt on coumadin Vicodin [Hydrocodon* GI Upset MEDICATIONS: Reviewed and updated Current Outpatient Medications Medication Sig HYDROcodone-acetaminophen (NORCO) 5-325 mg per tablet Take 1 tablet by mouth every 8 hours as needed for pain for up to 30 days. zolpidem (AMBIEN) 10 mg Take 1 tablet by mouth at bedtime as needed for up to 90 days. empagliflozin (JARDIANCE) 10 mg tablet Take 1 tablet by mouth daily with breakfast. gabapentin (NEURONTIN) 300 mg capsule Take 1 capsule by mouth two times a day. pantoprazole DR (PROTONIX) 40 mg tablet Take 1 tablet by mouth daily before breakfast. Take on empty stomach, 1/2 hr before meal. metOLazone (ZAROXOLYN) 2.5 mg tablet Take 1 tablet by mouth every other day. dilTIAZem CD (CARDIZEM CD) 180 mg 24 hr capsule Take 1 capsule by mouth once daily. potassium chloride SR (MICRO-K) 10 mEq CR capsule Take 2 capsules by mouth two times a day. warfarin (COUMADIN) 1 mg tablet Take 1 tablet by mouth once daily. Please take daily as directed furosemide (LASIX) 40 mg tablet Take 1 tablet by mouth once daily. Takes twice daily if with increased edema atenolol (TENORMIN) 25 mg tablet Take 1 tablet by mouth two times a day. levothyroxine (SYNTHROID) 25 mcg tablet Take 1 tablet by mouth daily before breakfast. TRELEGY ELLIPTA 100-62.5-25 mcg inhalation powder Inhale 1 Puff as instructed once daily. Magnesium 30 mg tablet Take 1 tablet by mouth twice daily. calcium carbonate/vitamin d3(CALCIUM 600 + D(3) 600 MG (1,500)-200 UNIT TAB) Take one(1) tablet twice daily BY MOUTH. DAILY MULTIPLE TAB Take one(1) tablet daily BY MOUTH. COMPOUNDED PRESCRIPTION Compression stockings. 15 to 20 pressure (Patient taking differently: Compression stockings. 15 to 20 pressure Uses as needed for edema) No current facility-administered medications for this visit. SOCIAL HISTORY: Reviewed and updated Social History Tobacco Use Smoking status: Former Current packs/day: 0.00 Average packs/day: 2.0 packs/day for 30.0 years (60.0 ttl pk-yrs) Types: Cigarettes Start date: 08/22/1970 Quit date: 08/22/2000 Years since quittin.7 Smokeless tobacco: Never Vaping Use Vaping status: Never Used Substance Use Topics Alcohol use: Not Currently Comment: very occasional Drug use: Not Currently Types: Marijuana FAMILY HISTORY: Reviewed and updated FAMILY HISTORY Problem Relation Age of Onset Heart Mother [place] Heart Father [place] Diabetes Maternal Uncle Headache Sister Review of Systems Constitutional: Positive for fatigue. Respiratory: Positive for cough and shortness of breath. Negative for chest tightness and wheezing. Cardiovascular: Negative. All other systems reviewed and negative, other than HPI. Physical Exam Vitals and nursing note reviewed. Constitutional: General: She is awake. She is not in acute distress. Appearance: Normal appearance. She is well-developed and well-groomed. She is not ill-appearing, toxic-appearing or diaphoretic. HENT: Head: Normocephalic. Right Ear: External ear normal. Left Ear: External ear normal. Nose: Nose normal. Eyes: General: Vision grossly intact. Conjunctiva/sclera: Conjunctivae normal. Pupils: Pupils are equal, round, and reactive to light. Neck: Vascular: No JVD. Trachea: Trachea normal. Cardiovascular: Rate and Rhythm: Normal rate and regular rhythm. Pulses: Normal pulses. Heart sounds: Normal heart sounds. No murmur heard. Pulmonary: Effort: Pulmonary effort is normal. No accessory muscle usage, prolonged expiration or respiratory distress. Breath sounds: Normal breath sounds. Musculoskeletal: Cervical back: Neck supple. Skin: General: Skin is warm and dry. Capillary Refill: Capillary refill takes less than 2 seconds. Neurological: General: No focal deficit present. Mental Status: She is alert and oriented to person, place, and time. Mental status is at baseline. Psychiatric: Attention and Perception: Attention and perception normal. Mood and Affect: Mood and affect normal. Speech: Speech normal. Behavior: Behavior normal. Behavior is cooperative. Thought Content: Thought content normal. Cognition and Memory: Cognition and memory normal. Judgment: Judgment normal. BP 100/64 Pulse 83 Wt 127 lb 10.3 oz (57.9kg) SpO2 97% 1. I have reviewed the patient record including associated test results during the last hospitalization Yes 2. I have reviewed Lab test Yes 3. I have reviewed Radiology test Yes 4. I reviewed assessment/plan with the patient/family member Yes ASSESSMENT/PLAN 1. Pneumonia of right lower lobe due to infectious organism - ICD9: 486, ICD10: J18.9 (primary diagnosis) Much improved and appears to be resolved at this point, lung sounds clear with exam. Ordered follow up cxr for before visit at the end of the month. - XR CHEST 2V FRONTAL/LAT 2. Hospital discharge follow-up - ICD9: V67.59, ICD10: Z09 Doing well. Follow up end of the month. 3. Congestive heart failure, unspecified HF chronicity, unspecified heart failure type (HCC) - ICD9: 428.0, ICD10: I50.9 - Compensated - Continue current medications - Encouraged sodium restriction - Encouraged daily weights 4. Centrilobular emphysema (HCC) - ICD9: 492.8, ICD10: J43.2 Stable on current meds. 5. Simple chronic bronchitis (HCC) - ICD9: 491.0, ICD10: J41.0 Stable on current meds. Portions of this note have been entered by ancillary staff. I have reviewed and when necessary edited, so that they are an adequate record of my encounter with this patient Please note that parts of this document were created using voice recognition software and therefore may contain grammatical errors. Patient verbalizes understanding of instructions from today's visit and in agreement with treatment plan. Questions answered. Agrees to call the office if questions, concerns or issues with acute symptoms not improving or if they worsen. See diagnoses and orders for additional plan(s). Allergies and medications were reviewed, list was updated, and refills given if needed. Past medical, surgical, social, and family history reviewed and updated as appropriate. Encouraged proper diet AND exercise as well as compliance with taking medications. Age-appropriate health preventative measures were discussed. Return if symptoms worsen or fail to improve, for Keep next scheduled appointment.. MICHAEL Moore CNOV Observed: 05/28/2024 8:40 AM Status: COMPLETED Source: [facility] Office Visit (INTMWS) MALU KITCHEN ([id number]) 1945 F Vendor Date Time Provider Department 05/28/24 8:40 AM JEWELS AUGUSTIN INTAntoniaWS During your visit today, we recorded the following information about you: Pulse Blood pressure Weight 83/minute 100/64 57.9 kg Jewels Augustin APRN.CNP 05/28/2024 9:18 AM Signed Transitional Care Management Progress Note The patients TCM visit was performed within the 7 days of discharge. TCM Eligibility Documentation The following information was gathered during the initial Patient Outreach Encounter. No data to display If no data exists please enter it manually. If data exists please delete date of discharge and date of initial contact seen below. Patient's Date of discharge: 05/22/2024 Date of initial coordinator contact after discharge: Patient made contact on 05/24. Discharge diagnosis: Pneumonia Medication review completed Yes with visit today. Jewels Augustin APRN.CNP Provider Documentation: In follow-up of hospitalization, Malu Kitchen is a 78 year old female with the chief complaint of hospital discharge follow up. I have reviewed the patient?s last hospital course including diagnostic testing performed during this hospitalization, their discharge medications, and my assessment and plan with the patient and any family members present at today?s visit. HPI: Malu is a 78 year old female established patient of Andra Rodrigues MD. Here today for hospital discharge follow up. Admitted to [facility] 05/19/2024 for right lower lobe pneumonia. Discharged Tuesday 05/22. Patient made contact with the office on 05/24. No medication changes other than prescribed a short term antibiotic. Records available reviewed in care everywhere. History of prior pneumonia, COPD, CHF. She reports today feeling well. Back to baseline of wearing 4 l/m o2 at night, has not neeed her o2 during the day since discharge. Feeling better now. Sleeping better. Appetite is better. Still some cough but improving. Slight short of breath on activity but resolved with rest. Still pretty tired at times but improving. No chest pain or chest tightness. Done with her antibiotics. PAST MEDICAL HISTORY: Reviewed and updated PAST MEDICAL HISTORY Diagnosis Date Acquired hypothyroidism 01/23/2022 Acute gastritis without mention of hemorrhage Acute, but ill-defined, cerebrovascular disease AMNESIA (RETROGRADE) TRANSIENT GLOBAL 07/15/2007 This was along with the TIA that she had. Atrial fibrillation (HCC) Basal cell carcinoma 12/16/2023 scalp Bleeding gastrointestinal 09/2020 Centrilobular emphysema (HCC) 04/13/2020 Patient had PFTs in 2019 and was found to have moderately severe large air way vent defect, which was irreversible. This was associated with trapping of air And mild reduction in the diffusion capacity. She has more that 60 pack years smoking, but stopped in 2000 She is on Anoro ellipta and is doing well, good exercise tolerance does the bike mostly. Does good exercise at work, around 18,000 Complete rupture of rotator cuff 2006 Congestive heart failure, unspecified HF chronicity, unspecified heart failure type (HCC) 05/12/2023 Cystocele 07/29/2013 Diarrhea Diverticulosis of colon (without mention of hemorrhage) Gastrointestinal hemorrhage associated with anorectal source 11/22/2020 Was admitted in September 2020 with the red blood per rectum. At that time INR was 1.7 as she is on Coumadin, her hemoglobin was stable so no blood transfusion was required. She had a CT scan and contrast and was given IV fluids after which she developed some shortness of breath and was given Lasix and she was sent home the next day after an echo. The echo showed she had known traumatic tricuspid r Generalized osteoarthrosis, involving hand Hematoma of left hip 06/26/2017 Osteoarthrosis, unspecified whether generalized or localized, other specified sites Other unspecified back disorder 1998 Patient has chronic back pain,she has had a spinal fusion at L-5 and problems with her discs PMH - PAST MEDICAL HISTORY OF hypertension PMH - PAST MEDICAL HISTORY OF hypercholesterolemia Pulmonary hypertension due to lung diseases and hypoxia (HCC) 06/23/2023 Sicca syndrome (HCC) Simple chronic bronchitis (HCC) 03/26/[address] Chao at [facility] [place]. She is on trilogy Ellipta. She has quit smoking in the past we encouraged her to continue to quit smoking. Stroke (HCC) x 2 last stroke 02/14/2016 TIA (transient ischemic attack) 12/16/2007 Unspecified inflammatory polyarthropathy ALLERGIES: Reviewed and updated ALLERGIES Allergen Reactions Adhesive Tape (Kasey* Rash Ibuprofen Pt on coumadin Vicodin [Hydrocodon* GI Upset MEDICATIONS: Reviewed and updated Current Outpatient Medications Medication Sig HYDROcodone-acetaminophen (NORCO) 5-325 mg per tablet Take 1 tablet by mouth every 8 hours as needed for pain for up to 30 days. zolpidem (AMBIEN) 10 mg Take 1 tablet by mouth at bedtime as needed for up to 90 days. empagliflozin (JARDIANCE) 10 mg tablet Take 1 tablet by mouth daily with breakfast. gabapentin (NEURONTIN) 300 mg capsule Take 1 capsule by mouth two times a day. pantoprazole DR (PROTONIX) 40 mg tablet Take 1 tablet by mouth daily before breakfast. Take on empty stomach, 1/2 hr before meal. metOLazone (ZAROXOLYN) 2.5 mg tablet Take 1 tablet by mouth every other day. dilTIAZem CD (CARDIZEM CD) 180 mg 24 hr capsule Take 1 capsule by mouth once daily. potassium chloride SR (MICRO-K) 10 mEq CR capsule Take 2 capsules by mouth two times a day. warfarin (COUMADIN) 1 mg tablet Take 1 tablet by mouth once daily. Please take daily as directed furosemide (LASIX) 40 mg tablet Take 1 tablet by mouth once daily. Takes twice daily if with increased edema atenolol (TENORMIN) 25 mg tablet Take 1 tablet by mouth two times a day. levothyroxine (SYNTHROID) 25 mcg tablet Take 1 tablet by mouth daily before breakfast. TRELEGY ELLIPTA 100-62.5-25 mcg inhalation powder Inhale 1 Puff as instructed once daily. Magnesium 30 mg tablet Take 1 tablet by mouth twice daily. calcium carbonate/vitamin d3(CALCIUM 600 + D(3) 600 MG (1,500)-200 UNIT TAB) Take one(1) tablet twice daily BY MOUTH. DAILY MULTIPLE TAB Take one(1) tablet daily BY MOUTH. COMPOUNDED PRESCRIPTION Compression stockings. 15 to 20 pressure (Patient taking differently: Compression stockings. 15 to 20 pressure Uses as needed for edema) No current facility-administered medications for this visit. SOCIAL HISTORY: Reviewed and updated Social History Tobacco Use Smoking status: Former Current packs/day: 0.00 Average packs/day: 2.0 packs/day for 30.0 years (60.0 ttl pk-yrs) Types: Cigarettes Start date: 08/22/1970 Quit date: 08/22/2000 Years since quittin.7 Smokeless tobacco: Never Vaping Use Vaping status: Never Used Substance Use Topics Alcohol use: Not Currently Comment: very occasional Drug use: Not Currently Types: Marijuana FAMILY HISTORY: Reviewed and updated FAMILY HISTORY Problem Relation Age of Onset Heart Mother [place] Heart Father [place] Diabetes Maternal Uncle Headache Sister Review of Systems Constitutional: Positive for fatigue. Respiratory: Positive for cough and shortness of breath. Negative for chest tightness and wheezing. Cardiovascular: Negative. All other systems reviewed and negative, other than HPI. Physical Exam Vitals and nursing note reviewed. Constitutional: General: She is awake. She is not in acute distress. Appearance: Normal appearance. She is well-developed and well-groomed. She is not ill-appearing, toxic-appearing or diaphoretic. HENT: Head: Normocephalic. Right Ear: External ear normal. Left Ear: External ear normal. Nose: Nose normal. Eyes: General: Vision grossly intact. Conjunctiva/sclera: Conjunctivae normal. Pupils: Pupils are equal, round, and reactive to light. Neck: Vascular: No JVD. Trachea: Trachea normal. Cardiovascular: Rate and Rhythm: Normal rate and regular rhythm. Pulses: Normal pulses. Heart sounds: Normal heart sounds. No murmur heard. Pulmonary: Effort: Pulmonary effort is normal. No accessory muscle usage, prolonged expiration or respiratory distress. Breath sounds: Normal breath sounds. Musculoskeletal: Cervical back: Neck supple. Skin: General: Skin is warm and dry. Capillary Refill: Capillary refill takes less than 2 seconds. Neurological: General: No focal deficit present. Mental Status: She is alert and oriented to person, place, and time. Mental status is at baseline. Psychiatric: Attention and Perception: Attention and perception normal. Mood and Affect: Mood and affect normal. Speech: Speech normal. Behavior: Behavior normal. Behavior is cooperative. Thought Content: Thought content normal. Cognition and Memory: Cognition and memory normal. Judgment: Judgment normal. BP 100/64 Pulse 83 Wt 127 lb 10.3 oz (57.9kg) SpO2 97% 1. I have reviewed the patient record including associated test results during the last hospitalization Yes 2. I have reviewed Lab test Yes 3. I have reviewed Radiology test Yes 4. I reviewed assessment/plan with the patient/family member Yes ASSESSMENT/PLAN 1. Pneumonia of right lower lobe due to infectious organism - ICD9: 486, ICD10: J18.9 (primary diagnosis) Much improved and appears to be resolved at this point, lung sounds clear with exam. Ordered follow up cxr for before visit at the end of the month. - XR CHEST 2V FRONTAL/LAT 2. Hospital discharge follow-up - ICD9: V67.59, ICD10: Z09 Doing well. Follow up end of the month. 3. Congestive heart failure, unspecified HF chronicity, unspecified heart failure type (HCC) - ICD9: 428.0, ICD10: I50.9 - Compensated - Continue current medications - Encouraged sodium restriction - Encouraged daily weights 4. Centrilobular emphysema (HCC) - ICD9: 492.8, ICD10: J43.2 Stable on current meds. 5. Simple chronic bronchitis (HCC) - ICD9: 491.0, ICD10: J41.0 Stable on current meds. Portions of this note have been entered by ancillary staff. I have reviewed and when necessary edited, so that they are an adequate record of my encounter with this patient Please note that parts of this document were created using voice recognition software and therefore may contain grammatical errors. Patient verbalizes understanding of instructions from today's visit and in agreement with treatment plan. Questions answered. Agrees to call the office if questions, concerns or issues with acute symptoms not improving or if they worsen. See diagnoses and orders for additional plan(s). Allergies and medications were reviewed, list was updated, and refills given if needed. Past medical, surgical, social, and family history reviewed and updated as appropriate. Encouraged proper diet AND exercise as well as compliance with taking medications. Age-appropriate health preventative measures were discussed. Return if symptoms worsen or fail to improve, for Keep next scheduled appointment.. Jewels Augustin APRN-[employer]AINING LEAD Allergies As of Date: 05/28/2024 Noted Allergy Reaction ADHESIVE TAPE (ROSINS) 08/22/2005 2 - Rash IBUPROFEN 06/06/2014 Comments: Pt on coumadin VICODIN (HYDROCODONE-ACETAMINOPHE*12/15/2014 8 - GI Upset Date Reviewed: 05/28/2024 Reviewed by: Jewels Augustin APRN.[employer] - Fully Assessed Reason for Visit: Hospital F/U [57] Cmt: admitted to [facility] 05/19/24 for pneumonia Primary Visit Diagnosis:Pneumonia of right lower lobe due to infectious organism [J18.9] Other Visit Diagnoses:Hospital discharge follow-up [Z09] Congestive heart failure, unspecified HF chronicity, unspecified heart failure type (HCC) [I50.9] Centrilobular emphysema (HCC) [J43.2] Simple chronic bronchitis (HCC) [J41.0] Order(s):XR CHEST 2V FRONTAL/LAT [[id number]] Order #: [id number] FUTURE Prescriptions as of 05/28/2024 - HYDROcodone-acetaminophen (NORCO) 5-325 mg per tablet Take 1 tablet by mouth every 8 hours as needed for pain for up to 30 days. - zolpidem (AMBIEN) 10 mg Take 1 tablet by mouth at bedtime as needed for up to 90 days. - empagliflozin (JARDIANCE) 10 mg tablet Take 1 tablet by mouth daily with breakfast. - gabapentin (NEURONTIN) 300 mg capsule Take 1 capsule by mouth two times a day. - pantoprazole DR (PROTONIX) 40 mg tablet Take 1 tablet by mouth daily before breakfast. Take on empty stomach, 1/2 hr before meal. - metOLazone (ZAROXOLYN) 2.5 mg tablet Take 1 tablet by mouth every other day. - dilTIAZem CD (CARDIZEM CD) 180 mg 24 hr capsule Take 1 capsule by mouth once daily. - potassium chloride SR (MICRO-K) 10 mEq CR capsule Take 2 capsules by mouth two times a day. - warfarin (COUMADIN) 1 mg tablet Take 1 tablet by mouth once daily. Please take daily as directed - furosemide (LASIX) 40 mg tablet Take 1 tablet by mouth once daily. Takes twice daily if with increased edema - atenolol (TENORMIN) 25 mg tablet Take 1 tablet by mouth two times a day. - levothyroxine (SYNTHROID) 25 mcg tablet Take 1 tablet by mouth daily before breakfast. - TRELEGY ELLIPTA 100-62.5-25 mcg inhalation powder Inhale 1 Puff as instructed once daily. - COMPOUNDED PRESCRIPTION Compression stockings. 15 to 20 pressure - Magnesium 30 mg tablet Take 1 tablet by mouth twice daily. - calcium carbonate/vitamin d3(CALCIUM 600 + D(3) 600 MG (1,500)-200 UNIT TAB) Take one(1) tablet twice daily BY MOUTH. - DAILY MULTIPLE TAB Take one(1) tablet daily BY MOUTH. Problem List As Of Date 05/28/2024 Noted Resolved Osteoarthrosis, unspecified whether generalized* 03/11/2017 AMNESIA (RETROGRADE) TRANSIENT GLOBAL [G45.4] 07/15/2007 06/26/2023 HIGH BLOOD PRESSURE-NO HYPERTENSN [R03.0] 07/15/2007 03/11/2017 INSOMNIA [G47.00] 07/15/2007 TOBACCO USE - PERSONAL HX [Z87.891] 07/15/2007 03/11/2017 Hyperlipidemia [E78.5] 08/20/2007 TIA (transient ischemic attack) [G45.9] 12/16/2007 06/26/2023 Acute gastritis with hemorrhage [K29.01] 10/13/2008 03/11/2017 Acute gastritis without mention of hemorrhage [*10/13/2008 03/11/2017 Hyperlipemia [E78.5] 06/16/2009 02/02/2016 Atrial Fibrillation [I48.91] 06/16/2009 12/16/2014 Sicca syndrome (HCC) [M35.00] 03/11/2017 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] 03/11/2017 Generalized Osteoarthrosis, Involving Hand [M15* Diarrhea [R19.7] 10/03/2009 12/16/2014 Diverticulosis of colon (without mention of hem*10/03/2009 06/26/2023 Internal hemorrhoids without mention of complic*10/03/2009 03/11/2017 Mitral regurgitation [I34.0] 09/02/2011 Right wrist pain [M25.531] 12/15/2012 03/11/2017 Uterovaginal prolapse [N81.4] 07/29/2013 03/11/2017 Cystocele [TUS2289] 07/29/2013 06/26/2023 Rotator cuff tear arthropathy of both shoulders*08/24/2013 PMB (postmenopausal bleeding) [N95.0] 09/07/2013 03/11/2017 Atrial fibrillation (HCC) [I48.91] 12/16/2014 Psoas tendinitis of right side [M76.11] 12/05/2015 03/11/2017 Gastroesophageal reflux disease without esophag*03/11/2016 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 *07/08/2016 Bilateral hip pain [M25.551, M25.552] 03/11/2017 S/P lumbar fusion [Z98.1] 06/02/2017 Abrasion of left forearm [S50.812A] 06/26/2017 03/18/2023 Laceration of left forearm [S51.812A] 06/26/2017 03/18/2023 Contusion of left hand [S60.222A] 06/26/2017 03/18/2023 Hematoma of left hip [S70.02XA] 06/26/2017 06/26/2023 Contusion of left knee [S80.02XA] 06/26/2017 03/18/2023 Primary osteoarthritis involving multiple joint*03/24/2018 Centrilobular emphysema (HCC) [J43.2] 04/13/2020 Gastrointestinal hemorrhage associated with ano*11/22/2020 06/26/2023 Iron deficiency anemia due to chronic blood los*11/22/2020 Pinched nerve in neck [G58.9] 01/30/2021 06/05/2021 Simple chronic bronchitis (HCC) [J41.0] 03/26/2021 Nonrheumatic tricuspid valve regurgitation [I36*03/26/2021 Congestive heart failure, unspecified HF chroni*05/12/2023 Acute respiratory failure with hypoxia and hype*05/12/2023 03/17/2024 Pulmonary hypertension due to lung diseases and*06/23/2023 Acquired hypothyroidism [E03.9] 01/23/2022 Rheumatoid arthritis with positive rheumatoid f*09/17/2023 Disposition: Return if symptoms worsen or fail to improve, for Keep next scheduled appointment.. Follow-up and Disposition History for Encounter Date Provider Department Center 05/28/2024 [id number] AUGUSTIN [facility] Encounter Status:Closed by JEWELS AUGUSTIN on 05/28/24 [place] Observed: 05/27/2024 12:00 AM Status: COMPLETED Source: [facility] Telephone (INTMWS) MALU KITCHEN ([id number]) 1945 F Vendor Date Time Provider Department 05/27/24 ANDRA RODRIGUES INTMWS During your visit today, we recorded the following information about you: Jennyfer Rodriguez LPN 05/27/2024 7:06 PM Signed Last INR: INR (POCT) 2.2 05/17/2024 per home MD/INR Current dose of coumadin is: Held (1mg) Last date of dose change: 01/09/2024. Previous INR (date and result): Previous 05/11/2024 Additional Clinical Information or narrative: INR goal is 2-3 Currently dose held since 05/23/2024, Patient was in [facility], released 05/22/2024 advised to hold Coumadin. Left message for Patient to call and speak to Nurse. Cece North LPN, RN 05/27/2024 7:15 PM Signed Patient reports home monitor INR is 2.0. She has been holding Coumadin since 05/23/24. Her previous dose was Coumadin 1 mg daily. MOSHE Elaine Donna M, RN 05/27/2024 7:29 PM Addendum Last INR: Home MD/INR 05/27/24 =2.0 Current dose of coumadin is: on hold. Last date of dose change: .01/09/24 Previous INR (date and result): INR (POCT) 2.2 05/11/2024 Additional Clinical Information or narrative: yes: Patient was taking Coumadin 1 mg daily Shefali Rich APRN.KINGA 05/28/2024 7:40 AM Signed Verify she is not on any other anticoagulation like lovenox and restart previous dose. Recheck in 1 week. Thank you JAQUELIN Bryan Julia, LPN 05/28/2024 11:18 AM Signed Spoke with patient and had not bridge with lovenox. Held warfarin for about 3 days and on Friday05/23/24 is when she resumed the warfarin at 1 mg. Patient will continue with 1 mg of warfarin and repeat INR in 1 week. Shefali Rich APRN.CNP 05/28/2024 12:28 PM Signed Noted Shefali Rich APRN.CNP Allergies As of Date: 05/27/2024 Noted Allergy Reaction ADHESIVE TAPE (ROSINS) 08/22/2005 2 - Rash IBUPROFEN 06/06/2014 Comments: Pt on coumadin VICODIN (HYDROCODONE-ACETAMINOPHE*12/15/2014 8 - GI Upset Date Reviewed: 03/21/2024 Reviewed by: Adiel Lindquist MD - Fully Assessed Reason for Visit: Anticoagulation [8] Order(s):PROTHROMBIN TIME [SQPT] Order #: [id number] Prescriptions as of 05/28/2024 - HYDROcodone-acetaminophen (NORCO) 5-325 mg per tablet Take 1 tablet by mouth every 8 hours as needed for pain for up to 30 days. - zolpidem (AMBIEN) 10 mg Take 1 tablet by mouth at bedtime as needed for up to 90 days. - empagliflozin (JARDIANCE) 10 mg tablet Take 1 tablet by mouth daily with breakfast. - gabapentin (NEURONTIN) 300 mg capsule Take 1 capsule by mouth two times a day. - pantoprazole DR (PROTONIX) 40 mg tablet Take 1 tablet by mouth daily before breakfast. Take on empty stomach, 1/2 hr before meal. - metOLazone (ZAROXOLYN) 2.5 mg tablet Take 1 tablet by mouth every other day. - dilTIAZem CD (CARDIZEM CD) 180 mg 24 hr capsule Take 1 capsule by mouth once daily. - potassium chloride SR (MICRO-K) 10 mEq CR capsule Take 2 capsules by mouth two times a day. - warfarin (COUMADIN) 1 mg tablet Take 1 tablet by mouth once daily. Please take daily as directed - furosemide (LASIX) 40 mg tablet Take 1 tablet by mouth once daily. Takes twice daily if with increased edema - atenolol (TENORMIN) 25 mg tablet Take 1 tablet by mouth two times a day. - levothyroxine (SYNTHROID) 25 mcg tablet Take 1 tablet by mouth daily before breakfast. - TRELEGY ELLIPTA 100-62.5-25 mcg inhalation powder Inhale 1 Puff as instructed once daily. - COMPOUNDED PRESCRIPTION Compression stockings. 15 to 20 pressure - Magnesium 30 mg tablet Take 1 tablet by mouth twice daily. - calcium carbonate/vitamin d3(CALCIUM 600 + D(3) 600 MG (1,500)-200 UNIT TAB) Take one(1) tablet twice daily BY MOUTH. - DAILY MULTIPLE TAB Take one(1) tablet daily BY MOUTH. Problem List As Of Date 05/27/2024 Noted Resolved Osteoarthrosis, unspecified whether generalized* 03/11/2017 AMNESIA (RETROGRADE) TRANSIENT GLOBAL [G45.4] 07/15/2007 06/26/2023 HIGH BLOOD PRESSURE-NO HYPERTENSN [R03.0] 07/15/2007 03/11/2017 INSOMNIA [G47.00] 07/15/2007 TOBACCO USE - PERSONAL HX [Z87.891] 07/15/2007 03/11/2017 Hyperlipidemia [E78.5] 08/20/2007 TIA (transient ischemic attack) [G45.9] 12/16/2007 06/26/2023 Acute gastritis with hemorrhage [K29.01] 10/13/2008 03/11/2017 Acute gastritis without mention of hemorrhage [*10/13/2008 03/11/2017 Hyperlipemia [E78.5] 06/16/2009 02/02/2016 Atrial Fibrillation [I48.91] 06/16/2009 12/16/2014 Sicca syndrome (HCC) [M35.00] 03/11/2017 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] 03/11/2017 Generalized Osteoarthrosis, Involving Hand [M15* Diarrhea [R19.7] 10/03/2009 12/16/2014 Diverticulosis of colon (without mention of hem*10/03/2009 06/26/2023 Internal hemorrhoids without mention of complic*10/03/2009 03/11/2017 Mitral regurgitation [I34.0] 09/02/2011 Right wrist pain [M25.531] 12/15/2012 03/11/2017 Uterovaginal prolapse [N81.4] 07/29/2013 03/11/2017 Cystocele [TNJ4412] 07/29/2013 06/26/2023 Rotator cuff tear arthropathy of both shoulders*08/24/2013 PMB (postmenopausal bleeding) [N95.0] 09/07/2013 03/11/2017 Atrial fibrillation (HCC) [I48.91] 12/16/2014 Psoas tendinitis of right side [M76.11] 12/05/2015 03/11/2017 Gastroesophageal reflux disease without esophag*03/11/2016 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 *07/08/2016 Bilateral hip pain [M25.551, M25.552] 03/11/2017 S/P lumbar fusion [Z98.1] 06/02/2017 Abrasion of left forearm [S50.812A] 06/26/2017 03/18/2023 Laceration of left forearm [S51.812A] 06/26/2017 03/18/2023 Contusion of left hand [S60.222A] 06/26/2017 03/18/2023 Hematoma of left hip [S70.02XA] 06/26/2017 06/26/2023 Contusion of left knee [S80.02XA] 06/26/2017 03/18/2023 Primary osteoarthritis involving multiple joint*03/24/2018 Centrilobular emphysema (HCC) [J43.2] 04/13/2020 Gastrointestinal hemorrhage associated with ano*11/22/2020 06/26/2023 Iron deficiency anemia due to chronic blood los*11/22/2020 Pinched nerve in neck [G58.9] 01/30/2021 06/05/2021 Simple chronic bronchitis (HCC) [J41.0] 03/26/2021 Nonrheumatic tricuspid valve regurgitation [I36*03/26/2021 Congestive heart failure, unspecified HF chroni*05/12/2023 Acute respiratory failure with hypoxia and hype*05/12/2023 03/17/2024 Pulmonary hypertension due to lung diseases and*06/23/2023 Acquired hypothyroidism [E03.9] 01/23/2022 Rheumatoid arthritis with positive rheumatoid f*09/17/2023 Encounter Status:Closed by SHEFALI RICH on 05/28/24 [place] Observed: 05/24/2024 12:00 AM Status: COMPLETED Source: [facility] Telephone (INTMWS) MALU KITCHEN ([id number]) 1945 F Vendor Date Time Provider Department 05/24/24 ANDRA RODRIGUES INTMWS During your visit today, we recorded the following information about you: Jennyfer Rodriguez LPN 05/24/2024 7:58 PM Signed Last INR: INR (POCT) 2.1 05/17/2024 per home INRani Current dose of coumadin is: 1 mg daily. Last date of dose change: 01/09/2024 Previous INR (date and result): Previous 05/11/2024 Additional Clinical Information or narrative: INR goal is 2-3 Currently taking 1mg daily. Patient reports she was released from [facility] 06/22/2024 dx pneumonia, INR was elevated in hospital, Coumadin was held until 06/22/2024. Please review and contact Patient, needs to schedule hospital f/u. Andra Johnson LPN, MD 05/25/2024 4:57 PM Signed Can you clarify if coumadin was held till 06/22/24? Or was that a typo? Andra Quevedo MD, Rachel L, MA 05/26/2024 9:20 AM Signed Per [facility] discharge summary, -on warfarin, continue to hold. Recheck prior to restarting on 05/24/24. DEE Kwong Chitra, MD 05/26/2024 10:42 AM Signed I would continue at her previous dose and recheck in a week from today. Andra Quevedo MD, Rachel L, MA 05/26/2024 11:14 AM Signed After speaking with the patient, it's noted that the below INR result is from 05/17/24. Patient has since been in the hospital and discharged since then. Pt has been off coumadin since 05/23/24. Patient will recheck INR today and let us know. Informed that we will keep eye on fax as well. Pt informed that we will call with results/changes. Dino Perez MA Allergies As of Date: 05/24/2024 Noted Allergy Reaction ADHESIVE TAPE (ROSINS) 08/22/2005 2 - Rash IBUPROFEN 06/06/2014 Comments: Pt on coumadin VICODIN (HYDROCODONE-ACETAMINOPHE*12/15/2014 8 - GI Upset Date Reviewed: 03/21/2024 Reviewed by: Adiel Lindquist MD - Fully Assessed Reason for Visit: Anticoagulation [8] Cmt: Prescriptions as of 06/03/2024 - HYDROcodone-acetaminophen (NORCO) 5-325 mg per tablet Take 1 tablet by mouth every 8 hours as needed for pain for up to 30 days. - zolpidem (AMBIEN) 10 mg Take 1 tablet by mouth at bedtime as needed for up to 90 days. - empagliflozin (JARDIANCE) 10 mg tablet Take 1 tablet by mouth daily with breakfast. - gabapentin (NEURONTIN) 300 mg capsule Take 1 capsule by mouth two times a day. - pantoprazole DR (PROTONIX) 40 mg tablet Take 1 tablet by mouth daily before breakfast. Take on empty stomach, 1/2 hr before meal. - metOLazone (ZAROXOLYN) 2.5 mg tablet Take 1 tablet by mouth every other day. - dilTIAZem CD (CARDIZEM CD) 180 mg 24 hr capsule Take 1 capsule by mouth once daily. - potassium chloride SR (MICRO-K) 10 mEq CR capsule Take 2 capsules by mouth two times a day. - warfarin (COUMADIN) 1 mg tablet Take 1 tablet by mouth once daily. Please take daily as directed - furosemide (LASIX) 40 mg tablet Take 1 tablet by mouth once daily. Takes twice daily if with increased edema - atenolol (TENORMIN) 25 mg tablet Take 1 tablet by mouth two times a day. - levothyroxine (SYNTHROID) 25 mcg tablet Take 1 tablet by mouth daily before breakfast. - TRELEGY ELLIPTA 100-62.5-25 mcg inhalation powder Inhale 1 Puff as instructed once daily. - COMPOUNDED PRESCRIPTION Compression stockings. 15 to 20 pressure - Magnesium 30 mg tablet Take 1 tablet by mouth twice daily. - calcium carbonate/vitamin d3(CALCIUM 600 + D(3) 600 MG (1,500)-200 UNIT TAB) Take one(1) tablet twice daily BY MOUTH. - DAILY MULTIPLE TAB Take one(1) tablet daily BY MOUTH. Problem List As Of Date 05/24/2024 Noted Resolved Osteoarthrosis, unspecified whether generalized* 03/11/2017 AMNESIA (RETROGRADE) TRANSIENT GLOBAL [G45.4] 07/15/2007 06/26/2023 HIGH BLOOD PRESSURE-NO HYPERTENSN [R03.0] 07/15/2007 03/11/2017 INSOMNIA [G47.00] 07/15/2007 TOBACCO USE - PERSONAL HX [Z87.891] 07/15/2007 03/11/2017 Hyperlipidemia [E78.5] 08/20/2007 TIA (transient ischemic attack) [G45.9] 12/16/2007 06/26/2023 Acute gastritis with hemorrhage [K29.01] 10/13/2008 03/11/2017 Acute gastritis without mention of hemorrhage [*10/13/2008 03/11/2017 Hyperlipemia [E78.5] 06/16/2009 02/02/2016 Atrial Fibrillation [I48.91] 06/16/2009 12/16/2014 Sicca syndrome (HCC) [M35.00] 03/11/2017 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] 03/11/2017 Generalized Osteoarthrosis, Involving Hand [M15* Diarrhea [R19.7] 10/03/2009 12/16/2014 Diverticulosis of colon (without mention of hem*10/03/2009 06/26/2023 Internal hemorrhoids without mention of complic*10/03/2009 03/11/2017 Mitral regurgitation [I34.0] 09/02/2011 Right wrist pain [M25.531] 12/15/2012 03/11/2017 Uterovaginal prolapse [N81.4] 07/29/2013 03/11/2017 Cystocele [EZX6608] 07/29/2013 06/26/2023 Rotator cuff tear arthropathy of both shoulders*08/24/2013 PMB (postmenopausal bleeding) [N95.0] 09/07/2013 03/11/2017 Atrial fibrillation (HCC) [I48.91] 12/16/2014 Psoas tendinitis of right side [M76.11] 12/05/2015 03/11/2017 Gastroesophageal reflux disease without esophag*03/11/2016 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 *07/08/2016 Bilateral hip pain [M25.551, M25.552] 03/11/2017 S/P lumbar fusion [Z98.1] 06/02/2017 Abrasion of left forearm [S50.812A] 06/26/2017 03/18/2023 Laceration of left forearm [S51.812A] 06/26/2017 03/18/2023 Contusion of left hand [S60.222A] 06/26/2017 03/18/2023 Hematoma of left hip [S70.02XA] 06/26/2017 06/26/2023 Contusion of left knee [S80.02XA] 06/26/2017 03/18/2023 Primary osteoarthritis involving multiple joint*03/24/2018 Centrilobular emphysema (HCC) [J43.2] 04/13/2020 Gastrointestinal hemorrhage associated with ano*11/22/2020 06/26/2023 Iron deficiency anemia due to chronic blood los*11/22/2020 Pinched nerve in neck [G58.9] 01/30/2021 06/05/2021 Simple chronic bronchitis (HCC) [J41.0] 03/26/2021 Nonrheumatic tricuspid valve regurgitation [I36*03/26/2021 Congestive heart failure, unspecified HF chroni*05/12/2023 Acute respiratory failure with hypoxia and hype*05/12/2023 03/17/2024 Pulmonary hypertension due to lung diseases and*06/23/2023 Acquired hypothyroidism [E03.9] 01/23/2022 Rheumatoid arthritis with positive rheumatoid f*09/17/2023 Encounter Status:Closed by ZAHRA PRATER on 06/03/24 [place] Observed: 05/12/2024 12:00 AM Status: COMPLETED Source: [facility] Telephone (INTMWS) FIDELINAMALU S ([id number]) 1945 F Vendor Date Time Provider Department 05/12/24 ANDRA RODRIGUES During your visit today, we recorded the following information about you: Zahra Prater LPN 05/12/2024 9:18 AM Signed Last INR: 2.2 05/11/2024 per home ARAM Current dose of coumadin is: . Last date of dose change: 01/09/24. Previous INR (date and result): 05/07/24 was 2.6 Additional Clinical Information or narrative: INR goal is 2-3. Message left for pt to return call to a nurse to review pt findings. Soledad Bush LPN 05/12/2024 9:52 AM Signed Pt was notified of results. Pt is taking 1mg of coumadin daily. Will repeat INR in one week. Soledad Bush LPN Allergies As of Date: 05/12/2024 Noted Allergy Reaction ADHESIVE TAPE (ROSINS) 08/22/2005 2 - Rash IBUPROFEN 06/06/2014 Comments: Pt on coumadin VICODIN (HYDROCODONE-ACETAMINOPHE*12/15/2014 8 - GI Upset Date Reviewed: 03/21/2024 Reviewed by: Adiel Lindquist MD - Fully Assessed Reason for Visit: Anticoagulation [8] Order(s):PROTHROMBIN TIME [SQPT] Order #: [id number] Prescriptions as of 05/13/2024 - HYDROcodone-acetaminophen (NORCO) 5-325 mg per tablet Take 1 tablet by mouth every 8 hours as needed for pain for up to 30 days. - zolpidem (AMBIEN) 10 mg Take 1 tablet by mouth at bedtime as needed for up to 90 days. - empagliflozin (JARDIANCE) 10 mg tablet Take 1 tablet by mouth daily with breakfast. - gabapentin (NEURONTIN) 300 mg capsule Take 1 capsule by mouth two times a day. - pantoprazole DR (PROTONIX) 40 mg tablet Take 1 tablet by mouth daily before breakfast. Take on empty stomach, 1/2 hr before meal. - metOLazone (ZAROXOLYN) 2.5 mg tablet Take 1 tablet by mouth every other day. - dilTIAZem CD (CARDIZEM CD) 180 mg 24 hr capsule Take 1 capsule by mouth once daily. - potassium chloride SR (MICRO-K) 10 mEq CR capsule Take 2 capsules by mouth two times a day. - warfarin (COUMADIN) 1 mg tablet Take 1 tablet by mouth once daily. Please take daily as directed - furosemide (LASIX) 40 mg tablet Take 1 tablet by mouth once daily. Takes twice daily if with increased edema - atenolol (TENORMIN) 25 mg tablet Take 1 tablet by mouth two times a day. - levothyroxine (SYNTHROID) 25 mcg tablet Take 1 tablet by mouth daily before breakfast. - TRELEGY ELLIPTA 100-62.5-25 mcg inhalation powder Inhale 1 Puff as instructed once daily. - COMPOUNDED PRESCRIPTION Compression stockings. 15 to 20 pressure - Magnesium 30 mg tablet Take 1 tablet by mouth twice daily. - calcium carbonate/vitamin d3(CALCIUM 600 + D(3) 600 MG (1,500)-200 UNIT TAB) Take one(1) tablet twice daily BY MOUTH. - DAILY MULTIPLE TAB Take one(1) tablet daily BY MOUTH. Problem List As Of Date 05/12/2024 Noted Resolved Osteoarthrosis, unspecified whether generalized* 03/11/2017 AMNESIA (RETROGRADE) TRANSIENT GLOBAL [G45.4] 07/15/2007 06/26/2023 HIGH BLOOD PRESSURE-NO HYPERTENSN [R03.0] 07/15/2007 03/11/2017 INSOMNIA [G47.00] 07/15/2007 TOBACCO USE - PERSONAL HX [Z87.891] 07/15/2007 03/11/2017 Hyperlipidemia [E78.5] 08/20/2007 TIA (transient ischemic attack) [G45.9] 12/16/2007 06/26/2023 Acute gastritis with hemorrhage [K29.01] 10/13/2008 03/11/2017 Acute gastritis without mention of hemorrhage [*10/13/2008 03/11/2017 Hyperlipemia [E78.5] 06/16/2009 02/02/2016 Atrial Fibrillation [I48.91] 06/16/2009 12/16/2014 Sicca syndrome (HCC) [M35.00] 03/11/2017 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] 03/11/2017 Generalized Osteoarthrosis, Involving Hand [M15* Diarrhea [R19.7] 10/03/2009 12/16/2014 Diverticulosis of colon (without mention of hem*10/03/2009 06/26/2023 Internal hemorrhoids without mention of complic*10/03/2009 03/11/2017 Mitral regurgitation [I34.0] 09/02/2011 Right wrist pain [M25.531] 12/15/2012 03/11/2017 Uterovaginal prolapse [N81.4] 07/29/2013 03/11/2017 Cystocele [DMW7160] 07/29/2013 06/26/2023 Rotator cuff tear arthropathy of both shoulders*08/24/2013 PMB (postmenopausal bleeding) [N95.0] 09/07/2013 03/11/2017 Atrial fibrillation (HCC) [I48.91] 12/16/2014 Psoas tendinitis of right side [M76.11] 12/05/2015 03/11/2017 Gastroesophageal reflux disease without esophag*03/11/2016 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 *07/08/2016 Bilateral hip pain [M25.551, M25.552] 03/11/2017 S/P lumbar fusion [Z98.1] 06/02/2017 Abrasion of left forearm [S50.812A] 06/26/2017 03/18/2023 Laceration of left forearm [S51.812A] 06/26/2017 03/18/2023 Contusion of left hand [S60.222A] 06/26/2017 03/18/2023 Hematoma of left hip [S70.02XA] 06/26/2017 06/26/2023 Contusion of left knee [S80.02XA] 06/26/2017 03/18/2023 Primary osteoarthritis involving multiple joint*03/24/2018 Centrilobular emphysema (HCC) [J43.2] 04/13/2020 Gastrointestinal hemorrhage associated with ano*11/22/2020 06/26/2023 Iron deficiency anemia due to chronic blood los*11/22/2020 Pinched nerve in neck [G58.9] 01/30/2021 06/05/2021 Simple chronic bronchitis (HCC) [J41.0] 03/26/2021 Nonrheumatic tricuspid valve regurgitation [I36*03/26/2021 Congestive heart failure, unspecified HF chroni*05/12/2023 Acute respiratory failure with hypoxia and hype*05/12/2023 03/17/2024 Pulmonary hypertension due to lung diseases and*06/23/2023 Acquired hypothyroidism [E03.9] 01/23/2022 Rheumatoid arthritis with positive rheumatoid f*09/17/2023 Encounter Status:Closed by ZAHRA PRATER on 05/13/24 [place] Observed: 05/07/2024 12:00 AM Status: COMPLETED Source: [facility] Telephone (INTMWS) MALU KITCHEN ([id number]) 1945 F Vendor Date Time Provider Department 05/07/24 ANDRA RODRIGUES During your visit today, we recorded the following information about you: Zahra Prater LPN 05/07/2024 2:30 PM Signed Last INR: 2.6 05/07/2024 per [facility] Current dose of coumadin is: . 1mg coumadin. Last date of dose change: 01/09/24. Previous INR (date and result): 04/28/24 was 2.2 Additional Clinical Information or narrative: INR goal is 2-3. Per [facility] home INR pt checks this weekly. Pt findings are negative. Shefali Rich APRN.KINGA 05/07/2024 2:45 PM Signed INR in therapeutic range. Continue current dose. Check in 4 weeks or as directed by home INR company Thank you Shefali Rich APRN.Zahra Hernandez LPN 05/07/2024 4:28 PM Signed Patient notified of results and provider's instructions. Patient verbalizes understanding. Zahra Prater LPN Allergies As of Date: 05/07/2024 Noted Allergy Reaction ADHESIVE TAPE (ROSINS) 08/22/2005 2 - Rash IBUPROFEN 06/06/2014 Comments: Pt on coumadin VICODIN (HYDROCODONE-ACETAMINOPHE*12/15/2014 8 - GI Upset Date Reviewed: 03/21/2024 Reviewed by: Adiel Lindquist MD - Fully Assessed Reason for Visit: Anticoagulation [8] Order(s):PROTHROMBIN TIME [SQPT] Order #: [id number] Prescriptions as of 05/07/2024 - zolpidem (AMBIEN) 10 mg Take 1 tablet by mouth at bedtime as needed for up to 90 days. - empagliflozin (JARDIANCE) 10 mg tablet Take 1 tablet by mouth daily with breakfast. - HYDROcodone-acetaminophen (NORCO) 5-325 mg per tablet Take 1 tablet by mouth every 8 hours as needed for pain for up to 30 days. - gabapentin (NEURONTIN) 300 mg capsule Take 1 capsule by mouth two times a day. - pantoprazole DR (PROTONIX) 40 mg tablet Take 1 tablet by mouth daily before breakfast. Take on empty stomach, 1/2 hr before meal. - metOLazone (ZAROXOLYN) 2.5 mg tablet Take 1 tablet by mouth every other day. - dilTIAZem CD (CARDIZEM CD) 180 mg 24 hr capsule Take 1 capsule by mouth once daily. - potassium chloride SR (MICRO-K) 10 mEq CR capsule Take 2 capsules by mouth two times a day. - warfarin (COUMADIN) 1 mg tablet Take 1 tablet by mouth once daily. Please take daily as directed - furosemide (LASIX) 40 mg tablet Take 1 tablet by mouth once daily. Takes twice daily if with increased edema - atenolol (TENORMIN) 25 mg tablet Take 1 tablet by mouth two times a day. - levothyroxine (SYNTHROID) 25 mcg tablet Take 1 tablet by mouth daily before breakfast. - TRELEGY ELLIPTA 100-62.5-25 mcg inhalation powder Inhale 1 Puff as instructed once daily. - COMPOUNDED PRESCRIPTION Compression stockings. 15 to 20 pressure - Magnesium 30 mg tablet Take 1 tablet by mouth twice daily. - calcium carbonate/vitamin d3(CALCIUM 600 + D(3) 600 MG (1,500)-200 UNIT TAB) Take one(1) tablet twice daily BY MOUTH. - DAILY MULTIPLE TAB Take one(1) tablet daily BY MOUTH. Problem List As Of Date 05/07/2024 Noted Resolved Osteoarthrosis, unspecified whether generalized* 03/11/2017 AMNESIA (RETROGRADE) TRANSIENT GLOBAL [G45.4] 07/15/2007 06/26/2023 HIGH BLOOD PRESSURE-NO HYPERTENSN [R03.0] 07/15/2007 03/11/2017 INSOMNIA [G47.00] 07/15/2007 TOBACCO USE - PERSONAL HX [Z87.891] 07/15/2007 03/11/2017 Hyperlipidemia [E78.5] 08/20/2007 TIA (transient ischemic attack) [G45.9] 12/16/2007 06/26/2023 Acute gastritis with hemorrhage [K29.01] 10/13/2008 03/11/2017 Acute gastritis without mention of hemorrhage [*10/13/2008 03/11/2017 Hyperlipemia [E78.5] 06/16/2009 02/02/2016 Atrial Fibrillation [I48.91] 06/16/2009 12/16/2014 Sicca syndrome (HCC) [M35.00] 03/11/2017 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] 03/11/2017 Generalized Osteoarthrosis, Involving Hand [M15* Diarrhea [R19.7] 10/03/2009 12/16/2014 Diverticulosis of colon (without mention of hem*10/03/2009 06/26/2023 Internal hemorrhoids without mention of complic*10/03/2009 03/11/2017 Mitral regurgitation [I34.0] 09/02/2011 Right wrist pain [M25.531] 12/15/2012 03/11/2017 Uterovaginal prolapse [N81.4] 07/29/2013 03/11/2017 Cystocele [CUB6407] 07/29/2013 06/26/2023 Rotator cuff tear arthropathy of both shoulders*08/24/2013 PMB (postmenopausal bleeding) [N95.0] 09/07/2013 03/11/2017 Atrial fibrillation (HCC) [I48.91] 12/16/2014 Psoas tendinitis of right side [M76.11] 12/05/2015 03/11/2017 Gastroesophageal reflux disease without esophag*03/11/2016 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 *07/08/2016 Bilateral hip pain [M25.551, M25.552] 03/11/2017 S/P lumbar fusion [Z98.1] 06/02/2017 Abrasion of left forearm [S50.812A] 06/26/2017 03/18/2023 Laceration of left forearm [S51.812A] 06/26/2017 03/18/2023 Contusion of left hand [S60.222A] 06/26/2017 03/18/2023 Hematoma of left hip [S70.02XA] 06/26/2017 06/26/2023 Contusion of left knee [S80.02XA] 06/26/2017 03/18/2023 Primary osteoarthritis involving multiple joint*03/24/2018 Centrilobular emphysema (HCC) [J43.2] 04/13/2020 Gastrointestinal hemorrhage associated with ano*11/22/2020 06/26/2023 Iron deficiency anemia due to chronic blood los*11/22/2020 Pinched nerve in neck [G58.9] 01/30/2021 06/05/2021 Simple chronic bronchitis (HCC) [J41.0] 03/26/2021 Nonrheumatic tricuspid valve regurgitation [I36*03/26/2021 Congestive heart failure, unspecified HF chroni*05/12/2023 Acute respiratory failure with hypoxia and hype*05/12/2023 03/17/2024 Pulmonary hypertension due to lung diseases and*06/23/2023 Acquired hypothyroidism [E03.9] 01/23/2022 Rheumatoid arthritis with positive rheumatoid f*09/17/2023 Encounter Status:Closed by ZAHRA PRATER on 05/07/24 ALLERGIES DATE TYPE / CODE NAME / CODE REACTION SEVERITY SOURCE 12/15/2014 DRUG/579776581(SNOME D CT) HYDROCODONE-ACETA MINOPHEN GI UPSET [facility] 06/06/2014 DRUG INGREDI/176627038(SNOM ED CT) IBUPROFEN [facility] 08/22/2005 Chemical/448520306(S NO MED CT) ADHESIVE TAPE (ROSINS) RASH [facility] Environmental Allergy/479789218(SNOM ED CT) ADHESIVE [facility] Miscellaneous Allergy/133479727(SNOM ED CT) No Known Drug Allergies U [facility] ENCOUNTERS ADMIT/DISCHARGE ACCOUNT NUMBER ADMITTING ENCOUNTER CLASS LOCATION SOURCE 04/23/2025/04/23/20 [id number] [facility] 03/11/2025/03/11/20 [id number] [facility] 03/11/2025/03/11/20 [id number] [facility]WOIA [facility] 03/04/2025/03/04/20 [id number] [facility]DEO [facility] 02/07/2025/02/08/20 [id number] BENNETT HARTMAN DPM Ambulatory BuildinR oom: [address] 01/25/2025 [id number] [facility] 01/25/2025/01/26/20 [id number] [facility]O [facility] 01/25/2025/01/26/20 [id number] [facility]WOSHIRLEY [facility] 11/01/2024/11/02/19 25 [id number] [facility]TINY [facility] 10/15/2024/10/16/19 25 [id number] [facility]WOLB [facility] 10/15/2024 [id number] [facility]WOLEmma [facility] 10/15/2024/10/16/19 25 [id number] [facility]TINY [facility] 09/23/2024/09/23/19 25 [id number] [facility] 09/23/2024/09/23/19 25 [id number] [facility]WOLB [facility] 09/23/2024/09/23/19 [id number] [facility]WOIA [facility] 09/14/2024 [id number] [facility]WOCT [facility] 07/01/2024 [id number] ROBIN WHITEHEAD [facility] POOLBed: 03 [facility] 06/22/2024/06/22/20 24 [id number] [facility] [id number] [facility]AKNM [facility] 06/15/2024/06/15/20 24 [id number] [facility]15/2024/06/15/20 24 [id number] [facility] 06/15/2024/06/15/20 24 [id number] [facility]/15/2024/06/15/20 24 [id number] [facility]/04/2024/06/04/20 24 [id number] [facility]AKLPB [facility] 06/04/2024/06/04/20 24 [id number] [facility] 05/28/2024/05/28/20 24 [id number] [facility]WOIA [facility] 05/08/2024/05/08/20 24 [id number] [facility] PAYERS ENCOUNTER GUARANTOR PAYER SUBSCRIBER SOURCE 04/23/2025 Primary Insuranc e:BRETTO SHAWN HMOPolicy Number: [id number] Date:1480-85-81Nxkm Name:Karley ROSENBAUM: [id number] [place] [address] [facility] 03/11/2025 Primary Insuranc e:MMO MEDADVANTAGE HMOPolicy Number: [id number] Date:9557-31-79Xqft Name:Karley MALU S FIDELINADOB: [id number] [place] [address] [facility] 03/11/2025 Primary Insuranc e:MMO MEDADVANTAGE HMOPolicy Number: [id number] Date:9483-01-76Gkqa Name:Karley RICHMONDAlexis Fraser REGGIEB: [id number] [place] [address] [facility] 03/04/2025 Primary Insuranc e:MMO MEDADVANTAGE HMOPolicy Number: [id number] Date:6377-39-91Iqrt Name:Karley PAREDESB: [id number] [place] [address] [facility] 02/07/2025 MALU PAREDESB: [place], [place] [address]Uhj: () Primary Insurance:[employer] MEDICARE OUTPATIENTPolicy Number: [id number] Date: MALU PAREDESB: [id number] [place] [address] [facility] 01/25/2025 Primary Insuranc e:MMO MEDADVANTAGE HMOPolicy Number: [id number] Date:5134-98-42Qhnh Name:Karley PAREDESB: [id number] [place] [address] [facility] 01/25/2025 Primary Insuranc e:MMO MEDADVANTAGE HMOPolicy Number: [id number] Date:3692-18-08Wqpz Name:Karley PAREDESB: [id number] [place] [address] [place] [address] 01/25/2025 Primary Insuranc e:MMO MEDADVANTAGE HMOPolicy Number: [id number] Date:3850-84-00Eyee Name:Karley Fraser REGGIEB: [id number] [place], [place] [address] [place] [address] 11/01/2024 Primary Insuranc e:MMO MEDADVANTAGE HMOPolicy Number: [id number] Date:2946-77-63Veip Name:Karley RICHMONDAlexis Fraser REGGIEB: [id number] [place] [address] [place] [address] 10/15/2024 Primary Insuranc e:MMO MEDADVANTAGE HMOPolicy Number: [id number] Date:4877-26-89Ybsi Name:Karley PAREDESB: [id number] [place] [address] [place] [address] 10/15/2024 Primary Insuranc e:MMO MEDADVANTAGE HMOPolicy Number: [id number] Date:6258-25-29Uyee Name:Karley PAREDESB: [id number] [place] [address] [place] [address] 10/15/2024 Primary Insuranc e:MMO MEDADVANTAGE HMOPolicy Number: [id number] Date:0525-33-37Iopz Name:Karley RICHMONDA Bria PAREDESB: [id number] [place] [address] [place] [address] 09/23/2024 Primary Insuranc e:MMO MEDADVANTAGE HMOPolicy Number: [id number] Date:7169-51-55Qzdo Name:Karley MALU S REGGIEB: [id number] [place] [address] [place] [address] 09/23/2024 Primary Insuranc e:MMO MEDADVANTAGE HMOPolicy Number: [id number] Date:7575-52-50Llvk Name:Karley Fraser FIDELINADOB: [id number] [place], [place] [address] [place] [address] 09/23/2024 Primary Insuranc e:MMO MEDADVANTAGE HMOPolicy Number: [id number] Date:5150-65-01Jjjc Name:Karley Fraser FIDELINADOB: [id number] [place], [place] [address] [place] [address] 09/14/2024 Primary Insuranc e:MMO MEDADVANTAGE HMOPolicy Number: [id number] Date:1623-02-44Wgok Name:Karley Fraser REGGIEB: [id number] [place] [address] [place] [address] 07/01/2024 Primary Insuranc e:MMO MEDADVANTAGE HMOPolicy Number: [id number] Date:6212-48-42Xuez Name:Karley Fraser FIDELINADOB: [id number] [place] [address] [place] [address] 06/22/2024 Primary Insuranc e:MMO MEDADVANTAGE HMOPolicy Number: [id number] Date:2908-70-94Udvv Name:Karley Fraser FIDELINADOB: [id number] [place] [address] [place] [address] 06/17/2024 Primary Insuranc e:MMO MEDADVANTAGE HMOPolicy Number: [id number] Date:1188-78-74Bkie Name:Karley MALU S REGGIEB: [id number] [place] [address] [place] [address] 06/15/2024 Primary Insuranc e:MMO MEDADVANTAGE HMOPolicy Number: [id number] Date:3082-19-09Igzo Name:Karley MALU S REGGIEB: [id number] [place] [address] [facility] 06/15/2024 Primary Insuranc e:MMO MEDADVANTAGE HMOPolicy Number: [id number] Date:1963-09-48Oazv Name:Karley Fraser REGGIEB: [id number] [place] [address] [facility] 06/15/2024 Primary Insuranc e:MMO MEDADVANTAGE HMOPolicy Number: [id number] Date:2172-69-69Bbvd Name:Karley MALU S REGGIEB: [id number] [place] [address] [facility] 06/15/2024 Primary Insuranc e:MMO MEDADVANTAGE HMOPolicy Number: [id number] Date:1428-75-84Zdtz Name:Karley PAREDESB: [id number] [place] [address] [facility] 06/04/2024 Primary Insuranc e:MMO MEDADVANTAGE HMOPolicy Number: [id number] Date:4837-09-73Qoko Name:Karley RICHMONDA Bria PAREDESB: [id number] [place] [address] [facility] 06/04/2024 Primary Insuranc e:MMO MEDADVANTAGE HMOPolicy Number: [id number] Date:2530-76-63Xdip Name:Karley PETERSENMALU Bria PAREDESB: [id number] [place] [address] [facility] 05/28/2024 Primary Insuranc e:MMO MEDADVANTAGE HMOPolicy Number: [id number] Date:0475-14-69Emsw Name:Karley MALU Bria PAREDESB: [id number] [place] [address] [facility] 05/08/2024 Primary Insuranc e:MMO MEDADVANTAGE HMOPolicy Number: [id number] Date:2364-48-76Nzik Name:Karley KITCHENB: [id number] Bria BAIN [facility] [place] [address] [facility]
--- OUTSIDE RECORDS SUMMARY | 2025-04-23 11:09 | XMS RPT_ITS ---
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 Name Role Phone GANTA, ANDRA Primary Care [...] DATE TYPE CONDITION / CODE ATTENDING STATUS [facility] 03/11/2025 Active Swelling of extr emity, left / M79.89(ICD-10) OLDER, SHEFALI Active [facility] 03/11/2025 Active Tenderness of le ft calf / M79.662(ICD-10) OLDER, SHEFALI Active [facility] 03/11/2025 Active Alteration in anticoagulation / Z51.81(ICD-10) OLDER, SHEFALI Active [facility] 03/11/2025 Active Alteration in anticoagulation / Z79.01(ICD-10) OLDER, SHEFALI Active [facility] 03/11/2025 Active History of recen t surgery / Z98.890(ICD-10) OLDER, SHEFALI Active [facility] 03/04/2025 Active Stage 3a chronic kidney disease (HCC) / N18.31(ICD-10) NA Active [facility] 03/04/2025 Active Function kidney decreased / N28.9(ICD-10) NA Active [facility] 01/25/2025 Active Pre-op exam / Z01.818(ICD-10) NA Active [facility] 10/15/2024 Active Pneumonia of low er lobe due to Streptococcus pneumoniae, unspecified laterality (HCC) / J13(ICD-10) NA Active [facility] 10/15/2024 Active Continued fever / R50.9(ICD-10) NA Active [facility] 05/12/2023 Active Congestive heart failure, unspecified HF chronicity, unspecified heart failure type (HCC) / I50.9(ICD-10) NA Active [facility] 09/23/2024 Active Stage 3 chronic kidney disease, unspecified whether stage 3a or 3b CKD (HCC) / N18.30(ICD-10) NA Active [facility] 09/23/2024 Active Prediabetes / R73.03(ICD-10) NA Active [facility] 09/23/2024 Active Preop exam for i nternal medicine / Z01.818(ICD-10) NA Active [facility] 09/14/2024 Active Lung nodule / R91.1(ICD-10) NA A ctive [facility] 07/01/2024 Active Pulmonary HTN (H CC) / I27.20(ICD-10) ROBIN WHITEHEAD Active [facility] 09/17/2023 Active Rheumatoid arthr itis with positive rheumatoid factor, involving unspecified site (HCC) / M05.9(ICD-10) ANDRA RODRIGUES [facility] 06/26/2023 Active Acquired hypothy roidism / E03.9(ICD-10) RAVI ANDRA [facility] 07/24/2021 Active Gastroesophageal reflux disease without esophagitis / K21.9(ICD-10) RAVI ANDRA Active [facility] 03/26/2021 Active Centrilobular em physema (HCC) / J43.2(ICD-10) RAVI [facility] Active [facility] 06/19/2015 Active Pure hypercholes terolemia / E78.00(ICD-10) RAVI [facility] 12/16/2014 Active Longstanding per sistent atrial fibrillation (HCC) / I48.11(ICD-10) ANDRA RODRIGUES [facility] 06/23/2023 Active Pulmonary hypert ension due to lung diseases and hypoxia (HCC) / I27.23(ICD-10) NA Active [facility] 06/15/2024 Active Interstitial pul monary disease (HCC) / J84.9(ICD-10) [facility] 06/04/2024 Active Encounter for sc reening for HIV / Z11.4(ICD-10) NA Active [facility] PROCEDURES No Procedure Records Found RESULTS CNPN Observed: 04/22/2025 12:00 AM Status: COMPLETED Source: [facility] Telephone (INT[facility]) MALU KITCHEN ([id number]) 1945 F Date Time Provider Department 04/22/25 [...] Date Reviewed: 03/11/2025 Reviewed by: Shefali Rich APRN.SOCIAL MEDIA JOB TITLES - Fully Assessed Reason for Visit: Anticoagulation [8] Cmt: Order(s):PROTHROMBIN TIME [SQPT] Order #: [id number] Prescriptions as of 04/25/2025 - HYDROcodone-acetaminophen (NORCO) [...] 03/11/2017 Uterovaginal prolapse [N81.4] 07/29/2013 03/11/2017 Cystocele [SNP9885] 07/29/2013 06/26/2023 Rotator cuff tear arthropathy of both shoulders*08/24/2013 PMB (postmenopausal bleeding) [N95.0] 09/07/2013 03/11/2017 Atrial fibrillation (HCC) [I48.91] 12/16/2014 Psoas tendinitis of right side [M76.11] 12/05/2015 03/11/2017 Gastroesophageal reflux disease without esophag*03/11/2016 nursing home current use of anticoagulant therapy *07/08/2016 [...] Observed: 04/12/2025 12:00 AM Status: COMPLETED Source: [facility] MALU KITCHEN ([id number]) 1945 F Date Time Provider Department 04/12/25 ANDRA [facility]OD[facility]IGUES [facility] During your visit today, we recorded the [...] Date Reviewed: 03/11/2025 Reviewed by: Shefali Rich APRN.SOCIAL MEDIA JOB TITLES - Fully Assessed Reason for Visit: Anticoagulation [8] Cmt: Order(s):PROTHROMBIN TIME [SQPT] Order #: [id number] Prescriptions as of 04/13/2025 - HYDROcodone-acetaminophen (NORCO) [...] 03/11/2017 Uterovaginal prolapse [N81.4] 07/29/2013 03/11/2017 Cystocele [QMD3180] 07/29/2013 06/26/2023 Rotator cuff tear arthropathy of both shoulders*08/24/2013 PMB (postmenopausal bleeding) [N95.0] 09/07/2013 03/11/2017 Atrial fibrillation (HCC) [I48.91] 12/16/2014 Psoas tendinitis of right side [M76.11] 12/05/2015 03/11/2017 Gastroesophageal reflux disease without esophag*03/11/2016 nursing home current use of anticoagulant therapy *07/08/2016 [...] Observed: 04/01/2025 12:00 AM Status: COMPLETED Source: [facility] Telephone ([facility]) MALU KITCHEN ([id number]) 1945 F Date Time Provider Department 04/01/25 [...] Date Reviewed: 03/11/2025 Reviewed by: Shefali Rich APRN.SOCIAL MEDIA JOB TITLES - Fully Assessed Reason for Visit: Anticoagulation [8] Order(s):PROTHROMBIN TIME [SQPT] Order #: [id number] Prescriptions as of 04/01/2025 - HYDROcodone-acetaminophen (NORCO) [...] 03/11/2017 Uterovaginal prolapse [N81.4] 07/29/2013 03/11/2017 Cystocele [HOU8674] 07/29/2013 06/26/2023 Rotator cuff tear arthropathy of both shoulders*08/24/2013 PMB (postmenopausal bleeding) [N95.0] 09/07/2013 03/11/2017 Atrial fibrillation (HCC) [I48.91] 12/16/2014 Psoas tendinitis of right side [M76.11] 12/05/2015 03/11/2017 Gastroesophageal reflux disease without esophag*03/11/2016 nursing home current use of anticoagulant therapy *07/08/2016 [...] Observed: 03/21/2025 12:00 AM Status: COMPLETED Source: [facility] Telephone ([facility]) MALU KITCHEN ([id number]) 1945 F Date Time Provider Department 03/21/25 [...] and recheck I 1 week. Regards, Lucretia Banks MD, RN 03/23/2025 12:34 PM Signed Called [...] Date Reviewed: 03/11/2025 Reviewed by: Shefali Rich APRN.SOCIAL MEDIA JOB TITLES - Fully Assessed Reason for Visit: Anticoagulation [...] 03/11/2017 Uterovaginal prolapse [N81.4] 07/29/2013 03/11/2017 Cystocele [QYW5328] 07/29/2013 06/26/2023 Rotator cuff tear arthropathy of both shoulders*08/24/2013 PMB (postmenopausal bleeding) [N95.0] 09/07/2013 03/11/2017 Atrial fibrillation (HCC) [I48.91] 12/16/2014 Psoas tendinitis of right side [M76.11] 12/05/2015 03/11/2017 Gastroesophageal reflux disease without esophag*03/11/2016 nursing home current use of anticoagulant therapy *07/08/2016 [...] Observed: 03/14/2025 12:00 AM Status: COMPLETED Source: [facility] MALU KITCHEN ([id number]) 1945 F Date Time Provider Department 03/14/25 ANDRA RODRIGUES [facility] During your visit today, we recorded the following information about you: Marianna Weinstein LPN 03/14/2025 10:09 AM Signed Pt calls to request referral for vascular and pt information be faxed to Dr. Davis at [facility]. Pt information faxed to; [phone]. Marianna Weinstein LPN Allergies As of Date: 03/14/2025 Noted Allergy Reaction ADHESIVE TAPE (ROSINS) 08/22/2005 2 - Rash IBUPROFEN 06/06/2014 Comments: Pt on coumadin VICODIN (HYDROCODONE-ACETAMINOPHE*12/15/2014 8 - GI Upset Date Reviewed: 03/11/2025 Reviewed by: Shefali Rich APRN.SOCIAL MEDIA JOB TITLES - Fully Assessed Reason for Visit: Referral [...] 03/11/2017 Uterovaginal prolapse [N81.4] 07/29/2013 03/11/2017 Cystocele [CCW8772] 07/29/2013 06/26/2023 Rotator cuff tear arthropathy of both shoulders*08/24/2013 PMB (postmenopausal bleeding) [N95.0] 09/07/2013 03/11/2017 Atrial fibrillation (HCC) [I48.91] 12/16/2014 Psoas tendinitis of right side [M76.11] 12/05/2015 03/11/2017 Gastroesophageal reflux disease without esophag*03/11/2016 nursing home current use of anticoagulant therapy *07/08/2016 [...] LAB Observed: 11:04 AM Status: F Source: [facility] Non-Invasive Vascular [facility] Lower Extremity Venous Duplex Bilateral/Complete Date of [...] Gentry Smith MD, MSCR, RPVI Final CC [employer] [facility] Image : [id number] See Link below for Image PROGRESS Observed: 03/11/2025 9:31 AM Status: COMPLETED Source: [facility] ID: [id number] Author: SHEFALI RICH APRN.SOCIAL MEDIA JOB TITLES Service: ? Author Type: Nurse Practitioner Type: Progress Notes Filed: 03/11/2025 09:47 Note Text: CC: Patient presents with: Recheck: Follow up L leg fluid build up HPI Malu Kitchen is a 79 year old female who presents today for left calf swelling and tenderness. Recording using Immunome software for draft documentation of the visit was discussed with the patient/authorized liability claims representative; all questions welcomed and answered. Patient/authorized liability claims representative agreed to proceed Left Calf Swelling [...] and hypoxia (HCC) 06/23/2023 RA (rheumatoid arthritis) ([facility]) 2021 Sicca syndrome (HCC) Simple chronic bronchitis ([facility]) 03/26/[address] Chao at [facility]. She is on trilogy Ellipta. She [...] Problem Relation Age of Onset Heart Mother OH Heart Father OH Diabetes Maternal Uncle Headache Sister SOCIAL HISTORY[1] [...] Cervical Cancer Screening due on 04/25/2018 Medicare [facility] Annual Wellness Visit Never done Depression Screening [...] Patient agreeable to treatment plan. Shefali Rich, DAVON.SOCIAL MEDIA JOB TITLES [1] Social History Tobacco Use Smoking status: [...] Observed: 03/11/2025 9:20 AM Status: COMPLETED Source: [facility] Office Visit (INTMWS) MALU KITCHEN ([id number]) 1945 F Date Time Provider Department 03/11/25 9:20 AM SHEFALI RICH INTMMALICK During your visit today, we recorded the following information about you: Pulse Respiration Blood pressure Weight 77/minute 16/minute 122/70 62.6 kg Shefali Rich APRN.SOCIAL MEDIA JOB TITLES 03/11/2025 9:47 AM Signed CC: Patient presents with: Recheck: Follow up L leg fluid build up HPI Malu Kitchen is a 79 year old female who presents today for left calf swelling and tenderness. Recording using Immunome software for draft documentation of the visit was discussed with the patient/authorized liability claims representative; all questions welcomed and answered. Patient/authorized liability claims representative agreed to proceed Left Calf Swelling [...] and hypoxia (HCC) 06/23/2023 RA (rheumatoid arthritis) ([facility]) 2021 Sicca syndrome (HCC) Simple chronic bronchitis ([facility]) 03/26/[address] 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 She is on trilogy Ellipta. She has [...] Right 09/21/2018 right reverse total shoulder arthroplasty [facility] REVISE MEDIAN N/CARPAL TUNNEL SURG Right 01/15/2024 [...] Problem Relation Age of Onset Heart Mother OH Heart Father [place] Diabetes Maternal Uncle Headache Sister SOCIAL HISTORY[1] [...] Patient agreeable to treatment plan. Shefali Rich APRN.SOCIAL MEDIA JOB TITLES [1] Social History Tobacco Use Smoking status: Former Current packs/day: 0.00 Average packs/day: 2.0 packs/day for 30.0 years (60.0 ttl pk-yrs) Types: Cigarettes Start date: 08/22/1970 Quit date: 08/22/2000 Years since quittin.5 Smokeless tobacco: Never Vaping Use Vaping status: Never Used Substance Use Topics Alcohol use: Not Currently Comment: very occasional Drug use: Not Currently Types: Marijuana Shefali Rich APRN.SOCIAL MEDIA JOB TITLES 03/11/2025 9:37 AM Signed - Complete a [...] Date Reviewed: 03/11/2025 Reviewed by: Shefali Rich APRN.SOCIAL MEDIA JOB TITLES - Fully Assessed Reason for Visit: Recheck [92] Cmt: Follow up L leg fluid build up Primary Visit Diagnosis:Swelling of extremity, left [M79.89] Other Visit Diagnoses:Tenderness of left calf [M79.662] Alteration in anticoagulation [Z51.81, Z79.01] History of recent surgery [Z98.890] Order(s):US LEG VEIN DVT UNL VAS LAB [3201105] Order #: [id number] FUTURE Prescriptions as of 03/11/2025 - HYDROcodone-acetaminophen [...] 03/11/2017 Uterovaginal prolapse [N81.4] 07/29/2013 03/11/2017 Cystocele [MVV9394] 07/29/2013 06/26/2023 Rotator cuff tear arthropathy of both shoulders*08/24/2013 PMB (postmenopausal bleeding) [N95.0] 09/07/2013 03/11/2017 Atrial fibrillation (HCC) [I48.91] 12/16/2014 Psoas tendinitis of right side [M76.11] 12/05/2015 03/11/2017 Gastroesophageal reflux disease without esophag*03/11/2016 nursing home current use of anticoagulant therapy *07/08/2016 [...] Service: OFFICE/OUTPATIENT ESTABLISHED LOW MDM 20 MIN [77455] Additional E/M codes: VISIT CPLX INHERENT EANDM ASSOC WITH MED * Encounter Status:Closed by SHEFALI RICH on 03/11/25 CNPN Observed: 03/09/2025 12:00 AM Status: COMPLETED Source: [facility] Telephone ([facility]) MALU KITCHEN ([id number]) 1945 F Date Time Provider Department 03/09/25 [...] Anticoagulation [8] Order(s):PROTHROMBIN TIME [SQPT] Order #: [id number] Prescriptions as of 03/09/2025 - pantoprazole DR [...] 03/11/2017 Uterovaginal prolapse [N81.4] 07/29/2013 03/11/2017 Cystocele [KDP5564] 07/29/2013 06/26/2023 Rotator cuff tear arthropathy of both shoulders*08/24/2013 PMB (postmenopausal bleeding) [N95.0] 09/07/2013 03/11/2017 Atrial fibrillation (HCC) [I48.91] 12/16/2014 Psoas tendinitis of right side [M76.11] 12/05/2015 03/11/2017 Gastroesophageal reflux disease without esophag*03/11/2016 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 *07/08/2016 Bilateral [...] Specimen Type : BLOOD SPECIMEN Ordering Facility: [facility] Address: [address], [place] [id number] TYPE CODE TESTS RESULT OUT OF RANGE [...] 2028-9(LOINC) CO2 SerPl-sCnc 27 22-30 mmol/L LAB 50264-8(LOINC) Anion Gap SerPl-sCnc 14 8-15 mmol/L LAB 35748-7(LOINC) Calcium SerPl-mCnc 9.7 8.5-10.2 mg/dL LAB 66912-7(LOINC) eGFRcr SerPlBld CKD-EPI 2020 48 Low >=60 [...] accurately reflect actual GFR. Performed By: #### [id number] # ### [facility] CLIA [id number] [address] [place] [address] OF [facility] CNPN Observed: 03/02/2025 12:00 AM Status: COMPLETED Source: [facility] Telephone (INTMWS) MALU KITCHEN ([id number]) 1945 F Date Time Provider Department 03/02/25 [...] Anticoagulation [8] Order(s):PROTHROMBIN TIME [SQPT] Order #: [id number] Prescriptions as of 03/02/2025 - pantoprazole DR [...] 03/11/2017 Uterovaginal prolapse [N81.4] 07/29/2013 03/11/2017 Cystocele [HZP4090] 07/29/2013 06/26/2023 Rotator cuff tear arthropathy of both shoulders*08/24/2013 PMB (postmenopausal bleeding) [N95.0] 09/07/2013 03/11/2017 Atrial fibrillation (HCC) [I48.91] 12/16/2014 Psoas tendinitis of right side [M76.11] 12/05/2015 03/11/2017 Gastroesophageal reflux disease without esophag*03/11/2016 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 *07/08/2016 Bilateral [...] Encounter Status:Closed by MARLENE EASTON on 03/02/25 [place] Observed: 02/23/2025 12:00 AM Status: COMPLETED Source: [facility] Telephone ([facility]) MALU KITCHEN ([id number]) 1945 F Date Time Provider Department 02/23/25 [...] Signed Patient active MyChart. Patient notified via PopJam message. Melissa Luz MA Allergies As of [...] 03/11/2017 Uterovaginal prolapse [N81.4] 07/29/2013 03/11/2017 Cystocele [BVU2709] 07/29/2013 06/26/2023 Rotator cuff tear arthropathy of both shoulders*08/24/2013 PMB (postmenopausal bleeding) [N95.0] 09/07/2013 03/11/2017 Atrial fibrillation (HCC) [I48.91] 12/16/2014 Psoas tendinitis of right side [M76.11] 12/05/2015 03/11/2017 Gastroesophageal reflux disease without esophag*03/11/2016 nursing home current use of anticoagulant therapy *07/08/2016 [...] Observed: 02/16/2025 12:00 AM Status: COMPLETED Source: [facility] Telephone (INT[facility]) MALU KITCHEN ([id number]) 1945 F Date Time Provider Department 02/16/25 [...] Anticoagulation [8] Order(s):PROTHROMBIN TIME [SQPT] Order #: [id number] Prescriptions as of 02/16/2025 - ondansetron orally [...] 03/11/2017 Uterovaginal prolapse [N81.4] 07/29/2013 03/11/2017 Cystocele [FEE7956] 07/29/2013 06/26/2023 Rotator cuff tear arthropathy of both shoulders*08/24/2013 PMB (postmenopausal bleeding) [N95.0] 09/07/2013 03/11/2017 Atrial fibrillation (HCC) [I48.91] 12/16/2014 Psoas tendinitis of right side [M76.11] 12/05/2015 03/11/2017 Gastroesophageal reflux disease without esophag*03/11/2016 nursing home current use of anticoagulant therapy *07/08/2016 [...] Observed: 02/07/2025 10:16 AM Status: F Source: [place] [address] Patient: MALU KITCHEN Phone#: : 1945 Age: 79 Gender: F Pt. Type: Out Account: [id number] Location: 2 Ordering: BENNETT HARTMAN Exam Date: 02/07/2025/10:06 Family Phys: ANDRA Elkins CARYNSADAF Charge Code: [id number] Physician: [place] Order #: [id number] Dose#: PROCEDURE: X-RAY FOOT LT 2 VIEWS [...] MD on 02/07/2025 at 11:21 Approved by: Rosa Adames MD on 02/07/2025 at 11:23 FINAL SURGICAL PATHOLOGY REPORT Observed : 02/07/2025 8:37 AM Status: F Source: [facility] Pathology Reports Accession: Collected Date/Time: Received Date/Time: Pathologist: [id number] 02/07/2025 08:37 EDT 02/09/2025 07:06 EDT MD VIVIAN MAGDALENO Final Surgical Pathology Report DIAGNOSIS: SOFT TISSUE, LEFT HELIX, EXCISION: - GOUTY TOPHI COMMENT: [facility] - [id number] CLINICAL INFORMATION: LEFT HALLUX VALGUS / PAINFUL LEFT 2ND AND 3RD METATARSAL HEADS SPECIMEN: A GOUTY TOPHI (L HALLUX) GROSS DESCRIPTION: All parts labelled with patient name and [id number] Received 100% alcohol labelled left hallux gouty tophi Is a herbert-white portion of soft tissue measuring 0.9 x 0.7 x 0.6 cm. A touch prep is attempted. TS-1 Veena Aguilar, Pathologists' Pipe Changer (ASCP) Performed by VEENA AGUILAR MICROSCOPIC DESCRIPTION: The microscopic examination is performed, except in the case of Gross Only. Verified by Pathology Report verified by [facility] VIVIAN MAGDALENO MD Sign out Date: 02/09/2025 13:26 Performing Lab: [facility], [address] [place] [address] Pathology Dept Disclaimer If ancillary studies were utilized, the following Laboratory Developed Test (LDT) disclaimer will apply: Under CLIA requirements, [facility] Pathology Laboratory is qualified to perform high complexity testing. For all ancillary stains, positive and negative controls stain appropriately. Performance characteristics of immunohistochemical and chromogenic in-situ hybridization tests have been determined by [facility] Pathology Laboratory. These tests are used for clinical purposes, They should not be regarded as investigational or for research. HISTORY AND PHYSICAL Observed: 5 6:15 AM Status: F Source: [facility] HISTORY & PHYSICAL NAME ACCOUNT SEX AGE ADMIT DISCHARGE PT MED. RECORD# NUMBER DATE DATE TYPE FIDELINA [id number] F 79 02/07/25 2 MALU rFaser [id number] ROOM: [facility] DATE OF : 49 DICTATING PHYSICIAN: Bennett [...] PLAN: The patient is to present to [facility] for outpatient surgical intervention on the morning [...] Bennett Hartman DPM 02/07/25 06:42 JOB #: [id number] Transcribed By: rc 02/07/25 07:05 Electronically signed [...] PROCEDURES Observed: 6:15 AM Status: F Source: [facility] OPERATIVE REPORT NAME ACCOUNT SEX AGE ADMIT DISCHARGE PT MED. RECORD# NUMBER DATE DATE TYPE FIDELINA [id number] F 79 02/07/25 2 MALU Fraser [id number] ROOM: [facility] DATE OF : 1945 DICTATING PHYSICIAN: Bennett Hartman DATE OF SURGERY: February 07, 2025 SURGEON: Bennett Hartman DPM PIG FURNACE OPERATOR: None. ANESTHESIOLOGIST: Betsy Garcia MD ANESTHETIC: General [...] Bennett Hartman DPM 02/07/25 09:54 JOB #: [id number] Transcribed By: pato 02/07/25 11:39 Electronically signed by: E-SIGN BENNETT HARTMAN 02/21/25 12:10 Page 3 of 3 MALU KITCHEN Operative Report CNPN Observed: 01/27/2025 12:00 AM Status: COMPLETED Source: [facility] Telephone ([facility]) MALU KITCHEN ([id number]) 1945 F Date Time Provider Department 01/27/25 [...] Signed Patient active MyChart. Patient notified via PopJam message. Melissa Luz MA Allergies As of Date: 01/27/2025 Noted Allergy Reaction ADHESIVE TAPE (ROSINS) 08/22/2005 2 - Rash IBUPROFEN 06/06/2014 Comments: Pt on coumadin VICODIN (HYDROCODONE-ACETAMINOPHE*12/15/2014 8 - GI Upset Date Reviewed: 01/25/2025 Reviewed by: [place] Luz MA - Fully Assessed Reason for Visit: Anticoagulation [8] Order(s):PROTHROMBIN TIME [SQPT] Order #: [id number] Prescriptions as of 01/31/2025 - furosemide (LASIX) [...] 03/11/2017 Uterovaginal prolapse [N81.4] 07/29/2013 03/11/2017 Cystocele [ISD6485] 07/29/2013 06/26/2023 Rotator cuff tear arthropathy of both shoulders*08/24/2013 PMB (postmenopausal bleeding) [N95.0] 09/07/2013 03/11/2017 Atrial fibrillation (HCC) [I48.91] 12/16/2014 Psoas tendinitis of right side [M76.11] 12/05/2015 03/11/2017 Gastroesophageal reflux disease without esophag*03/11/2016 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 *07/08/2016 Bilateral [...] Observed: 2024 11:49 AM Status: F Source: [facility] * * *Final Report* * * DATE [...] shoulder prostheses IMPRESSION: No acute radiographic abnormality. Block And Case Maker: PSCB Transcribe Date/Time: Jan 25 2025 1:37P Dictated by : ELIZABETH MENDEZ MD This examination was interpreted and the report reviewed and electronically signed by: ELIZABETH MENDEZ MD on Jan 25 2025 1:39PM EST [id number] Observed: 01/25/2025 11:30 AM Status: COMPLETED Source: [facility] HNO ID: [id number] Author: RITU KENNEY RT(R) Service: ? Author Type: Record Systems Analyst Type: Progress Notes Filed: 01/25/2025 11:49 Note [...] PATIENT PRESENTS WITH AN IMPLANTABLE OR ATTACHED CIVIL DESIGNER: No RADIOLOGY DEPARTMENT: General X-ray: Exam(s) Completed: Chest X-Ray PERIPHERAL IV DATA: Not applicable SIGNED BY: RT Patricia(R) January 25, 2025 11:39 AM CBC W AUTO DIFF BLD Collected: 01/25/2025 11:14 AM S tatus: F Source: [facility] Order Comment: Specimen Type : BLOOD SPECIMEN Ordering Facility: [facility] Address: [address] [place] [address] TYPE CODE TESTS RESULT OUT OF RANGE REFERENCE UNITS LAB 6690-2(LOINC) WBC # Bld Auto 8.50 3.70-11.00 k/uL LAB 789-8([facility]) RBC # Bld Auto 4.92 3.90-5.20 m/ uL LAB 718-7([facility]) Hgb Bld-mCnc 14.8 11.5-15.5 g/dL LAB 4544-3([facility]) Hct VFr Bld Auto 45.0 36.0-46.0 % LAB 787-2([facility]) MCV RBC Auto 91.5 80.0-100.0 fL LAB 785-6([facility]) MCH RBC Qn Auto 30.1 26.0-34.0 p g LAB 786-4([facility]) MCHC RBC Auto-mCnc 32.9 30.5-36.0 g/dL LAB 34325-5([facility]) RDW RBC-Rto 13.8 11.5-15.0 % LAB 777-3([facility]) Platelet # Bld Auto 285 150-400 k/uL LAB 77729-7([facility]) PMV Bld Auto 11.3 9.0-12.7 fL LAB 770-8([facility]) Neutrophils/leuk NFr Bld Auto 62.0 % LAB 751-8([facility]) Neutrophils # Bld Auto 5.27 1.45-7.50 k/uL LAB 736-9([facility]) Lymphocytes/leuk NFr Bld Auto 23.4 % LAB 731-0([facility]) Lymphocytes # Bld Auto 1.99 1.00-4.00 k/uL LAB 5905-5([facility]) Monocytes/leuk NFr Bld Auto 12.6 % LAB 742-7([facility]) Monocytes # Bld Auto 1.07 High <0.87 k/uL LAB 713-8([facility]) Eosinophil/leuk NFr Bld Auto 1.4 % LAB 711-2([facility]) Eosinophil # Bld Auto 0.12 <0.46 k/uL LAB 706-2([facility]) Basophils/leuk NFr Bld Auto 0.4 % LAB 704-7([facility]) Basophils # Bld Auto 0.03 <0.11 k/uL LAB 78739-6([facility]) Imm Granulocytes/shraddha k NFr Bld Auto 0.2 % LAB 13395-1(LOINC) Imm Granulocytes # Bld Auto <0.03 <0.10 k/uL LAB 38285-6(LOINC) nRBC/100 WBC Bld-Rto 0.0 /100 [facility]BC [facility] nRBC # Bld Auto <0.01 <0.01 k/u L LAB 51716-6([facility]) Differential method Bld Auto Performed By: #### 48618-3 # ### [facility] CLIA [id number] [address] [place] [address] [place] COMP METAB 2000 PNL SERPL Collected: 11:14 AM Status: F Source: [facility] Order Comment: Specimen Type : BLOOD SPECIMEN Ordering Facility: [facility] Address: [address] [place] [address] TYPE CODE TESTS RESULT OUT OF RANGE REFERENCE UNITS LAB 2885-2(INC) Prot SerPl-mCnc 7.3 6.3-8.0 g/dL LAB 1751-7(INC) Albumin SerPl-mCnc 4.3 3.9-4.9 g/dL LAB 34024-6(LOINC) Calcium SerPl-mCnc 10.6 High 8.5-10.2 mg/dL LAB [...] CO2 SerPl-sCnc 29 22-30 mmo l/L LAB 82699-7(LOINC) Anion Gap SerPl-sCnc 17 High 8-15 mmol/L LAB 71425-2(LOINC) Creatinine + eGFR Pnl SerPlBld 48 Low [...] accurately reflect actual GFR. Performed By: #### 36492-4 # ### [facility] CLIA [id number] [address] [place] [address] [place] PROGRESS Observed: 01/25/2025 11:11 AM Status: COMPLETED Source: [facility] HNO ID: [id number] Author: ANDRA RODRIGUES MD Service: ? Author Type: Physician Type: Progress Notes Filed: 01/25/2025 11:25 Note Text: Reason for Visit Follow up HPI Malu Kitchen is a 79-year-old female with a history of RA, CHF, and A-fib, presenting for preoperative evaluation prior to foot surgery. Malu is scheduled for a hallux caler arthroplasty with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 09/23/2024 Reviewed by: Shefali Rich APRN.SOCIAL MEDIA JOB TITLES - Fully Assessed Reason for Visit: OT [...] 03/11/2017 Uterovaginal prolapse [N81.4] 07/29/2013 03/11/2017 Cystocele [JCT3002] 07/29/2013 06/26/2023 Rotator cuff tear arthropathy of both shoulders*08/24/2013 PMB (postmenopausal bleeding) [N95.0] 09/07/2013 03/11/2017 Atrial fibrillation (HCC) [I48.91] 12/16/2014 Psoas tendinitis of right side [M76.11] 12/05/2015 03/11/2017 Gastroesophageal reflux disease without esophag*03/11/2016 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 *07/08/2016 Bilateral [...] Observed: 10/08/2024 12:00 AM Status: COMPLETED Source: [facility] Telephone (INTMWS) FIDELINAMALU S ([id number]) 1945 F Vendor Date Time Provider Department [...] Date Reviewed: 09/23/2024 Reviewed by: Shefali Rich APRN.SOCIAL MEDIA JOB TITLES - Fully Assessed Reason for Visit: Anticoagulation [8] Visit Diagnosis:Persistent atrial fibrillation (HCC) [I48.19] Order(s):PROTHROMBIN TIME [SQPT] Order #: [id number] warfarin (COUMADIN) 1 mg tabletTake 1 tablet [...] 03/11/2017 Uterovaginal prolapse [N81.4] 07/29/2013 03/11/2017 Cystocele [YXK0434] 07/29/2013 06/26/2023 Rotator cuff tear arthropathy of both shoulders*08/24/2013 PMB (postmenopausal bleeding) [N95.0] 09/07/2013 03/11/2017 Atrial fibrillation (HCC) [I48.91] 12/16/2014 Psoas tendinitis of right side [M76.11] 12/05/2015 03/11/2017 Gastroesophageal reflux disease without esophag*03/11/2016 nursing home current use of anticoagulant therapy *07/08/2016 [...] Observed: 10/07/2024 12:00 AM Status: COMPLETED Source: [facility] Telephone (INTMWS) MALU KITCHEN ([id number]) 1945 F Vendor Date Time Provider Department 10/07/24 ANDRA RODRIGUES During your visit today, we recorded the following information about you: Antonia Emerson RN 10/07/2024 2:01 PM Signed Gala- PT- [facility]- reporting POC: will see pt 1 [...] Date Reviewed: 09/23/2024 Reviewed by: Shefali Rich APRN.SOCIAL MEDIA JOB TITLES - Fully Assessed Reason for Visit: [facility] PT POC update [Other] Prescriptions as [...] 03/11/2017 Uterovaginal prolapse [N81.4] 07/29/2013 03/11/2017 Cystocele [IEL9096] 07/29/2013 06/26/2023 Rotator cuff tear arthropathy of both shoulders*08/24/2013 PMB (postmenopausal bleeding) [N95.0] 09/07/2013 03/11/2017 Atrial fibrillation (HCC) [I48.91] 12/16/2014 Psoas tendinitis of right side [M76.11] 12/05/2015 03/11/2017 Gastroesophageal reflux disease without esophag*03/11/2016 nursing home current use of anticoagulant therapy *07/08/2016 [...] Observed: 10/06/2024 12:00 AM Status: COMPLETED Source: [facility] Telephone (INTMWS) MALU KITCHEN ([id number]) 1945 F Vendor Date Time Provider Department 10/06/24 ANDRA RODRIGUES INTMWS During your visit today, we recorded the following information about you: Deisy Padron LPN 10/06/2024 3:14 PM Signed Arcelia from [facility] Home Health calling patient was discharged 10/04 from [facility], was there with sepsis, pneumonia was on ventilator. She has home oxygen at 4 liters her lungs sounds are diminished, coughing bloody tinged sputum, irritation from being on the vent. Patient is taking Cefdinir and mucinex. Plan of care for shelter 2 visits weekly for 2 weeks, then [...] will go through. Thank you Shefali Rich APRN.SOCIAL MEDIA JOB TITLES Allergies As of Date: 10/06/2024 Noted Allergy Reaction ADHESIVE TAPE (ROSINS) 08/22/2005 2 - Rash IBUPROFEN 06/06/2014 Comments: Pt on coumadin VICODIN (HYDROCODONE-ACETAMINOPHE*12/15/2014 8 - GI Upset Date Reviewed: 09/23/2024 Reviewed by: Shefali Rich APRN.KINGA - Fully Assessed Reason for Visit: correction plan of care [Other] Primary Visit Diagnosis:Nausea [...] 03/11/2017 Uterovaginal prolapse [N81.4] 07/29/2013 03/11/2017 Cystocele [[id number]] 07/29/2013 06/26/2023 Rotator cuff tear arthropathy of both shoulders*08/24/2013 PMB (postmenopausal bleeding) [N95.0] 09/07/2013 03/11/2017 Atrial fibrillation (HCC) [I48.91] 12/16/2014 Psoas tendinitis of right side [M76.11] 12/05/2015 03/11/2017 Gastroesophageal reflux disease without esophag*03/11/2016 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 *07/08/2016 Bilateral [...] positive rheumatoid f*09/17/2023 PAH (pulmonary artery hypertension) ([facility]) [I27.*07/01/2024 Prescriptions ordered this encounter Disp Refills Start End ONDANSETRON 4 MG DISINTEGRATING TABL* 15 t* 0 10/06/2024 Route: ORAL Sig: Take 1 tablet by mouth every 6 hours as needed for nausea/vomiting. Encounter Status:Closed by DEISY PADRON on 10/22/24 [place] Observed: 10/05/2024 12:00 AM Status: COMPLETED Source: [facility] Telephone (INTMWS) MALU KITCHEN ([id number]) 1945 F Vendor Date Time Provider Department 10/05/24 ANDRA RODRIGUES INTMWS During your visit today, we recorded the following information about you: Sonia Perez RN 10/05/2024 12:21 PM Signed Phuong from [facility] calls and states that patient was discharged from [facility] PCU on 10/03/2024 with the diagnosis of sepsis and pneumonia. Phuong asking if provider willing to follow patient with orders for shelter, physical occupational, and occupational therapy. If agreeable please give Phuong a call back . Thank you, MOSHE Rios Joy, APRN.SOCIAL MEDIA JOB TITLES 10/06/2024 6:41 PM Signed Pcp willing to follow patient and ok with orders Thank you Shefali Rich APRN.SOCIAL MEDIA JOB TITLES Allergies As of Date: 10/05/2024 Noted Allergy Reaction ADHESIVE TAPE (ROSINS) 08/22/2005 2 - Rash IBUPROFEN 06/06/2014 Comments: Pt on coumadin VICODIN (HYDROCODONE-ACETAMINOPHE*12/15/2014 8 - GI Upset Date Reviewed: 09/23/2024 Reviewed by: Shefali Rich APRN.SOCIAL MEDIA JOB TITLES - Fully Assessed Reason for Visit: Home [...] 03/11/2017 Uterovaginal prolapse [N81.4] 07/29/2013 03/11/2017 Cystocele [[id number]] 07/29/2013 06/26/2023 Rotator cuff tear arthropathy of both shoulders*08/24/2013 PMB (postmenopausal bleeding) [N95.0] 09/07/2013 03/11/2017 Atrial fibrillation (HCC) [I48.91] 12/16/2014 Psoas tendinitis of right side [M76.11] 12/05/2015 03/11/2017 Gastroesophageal reflux disease without esophag*03/11/2016 nursing home current use of anticoagulant therapy *07/08/2016 [...] Observed: 09/27/2024 12:00 AM Status: COMPLETED Source: [facility] MALU KITCHEN ([id number]) 1945 F Vendor Date Time Provider Department [...] with patient so she can call 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 Thank you Shefali Rich APRN.SOCIAL MEDIA JOB TITLES Allergies As of Date: 09/27/2024 Noted Allergy Reaction ADHESIVE TAPE (ROSINS) 08/22/2005 2 - Rash IBUPROFEN 06/06/2014 Comments: Pt on coumadin VICODIN (HYDROCODONE-ACETAMINOPHE*12/15/2014 8 - GI Upset Date Reviewed: 09/23/2024 Reviewed by: Shefali Rich APRN.SOCIAL MEDIA JOB TITLES - Fully Assessed Reason for Visit: Orders [...] 03/11/2017 Uterovaginal prolapse [N81.4] 07/29/2013 03/11/2017 Cystocele [HVX7303] 07/29/2013 06/26/2023 Rotator cuff tear arthropathy of both shoulders*08/24/2013 PMB (postmenopausal bleeding) [N95.0] 09/07/2013 03/11/2017 Atrial fibrillation (HCC) [I48.91] 12/16/2014 Psoas tendinitis of right side [M76.11] 12/05/2015 03/11/2017 Gastroesophageal reflux disease without esophag*03/11/2016 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 *07/08/2016 Bilateral [...] Observed: 09/23/2024 11:30 AM Status: COMPLETED Source: [facility] ID: [id number] Author: RAYMON BLACK RT(R) Service: Radiology Author [...] PATIENT PRESENTS WITH AN IMPLANTABLE OR ATTACHED CIVIL DESIGNER: No RADIOLOGY DEPARTMENT: General X-ray: Exam(s) Completed: Chest X-Ray PERIPHERAL IV DATA: Not applicable SIGNED BY: RT Masha(R) September 23, 2024 11:12 AM XR CHEST 2V FRONTAL/LAT Observed: 2024 11:18 AM Status: F Source: [facility] * * *Final Report* * * DATE [...] vertebral body IMPRESSION: No acute radiographic abnormality. Block And Case Maker: JUAN F Transcribe Date/Time: Sep 23 2024 1:25P Dictated by : JYOTI VASQUEZ MD This examination was interpreted and the report reviewed and electronically signed by: JYOTI VASQUEZ MD on Sep 23 2024 1:27PM EST [id number] COMP METAB 2000 PNL SERPL Collected: 11:04 AM Status: F Source: [facility] Order Comment: Specimen Type : BLOOD SPECIMEN Ordering Facility: [facility] Address: [facility] [place] [address] TYPE CODE TESTS RESULT OUT OF RANGE REFERENCE UNITS LAB 2885-2(LOINC) Prot SerPl-mCnc 7.1 6.3-8.0 g/dL LAB 1751-7(LOINC) Albumin SerPl-mCnc 4.1 3.9-4.9 g/dL LAB 65185-0(LOINC) Calcium SerPl-mCnc 10.1 8.5-10.2 mg/dL LAB 1975-2(LOINC) [...] CO2 SerPl-sCnc 30 22-30 mmo l/L LAB 57776-5(LOINC) Anion Gap SerPl-sCnc 13 8-15 mmol/L LAB 22048-0(LOINC) Creatinine + eGFR Pnl SerPlBld 60 >=60 [...] accurately reflect actual GFR. Performed By: #### 72161-4 # ### [facility] CLIA [id number] [address] [place] [address] [place] CBC W AUTO DIFF BLD Collected: 09/23/2024 11:04 AM S tatus: F Source: [facility] Order Comment: Specimen Type : BLOOD SPECIMEN Ordering Facility: [facility] Address: [address] [place] [address] TYPE CODE TESTS RESULT OUT OF RANGE REFERENCE UNITS LAB 6690-2(LOINC) WBC # Bld Auto 8.27 3.70-11.00 k/uL LAB 789-8(LOINC) RBC # Bld Auto 4.23 3.90-5.20 m/ uL LAB 718-7(LOINC) Hgb Bld-mCnc 12.8 11.5-15.5 g/dL LAB 4544-3(LOINC) Hct VFr Bld Auto 39.7 36.0-46.0 % LAB 787-2([facility]) MCV RBC Auto 93.9 80.0-100.0 fL LAB 785-6([facility]) MCH RBC Qn Auto 30.3 26.0-34.0 p g LAB 786-4([facility]) MCHC RBC Auto-mCnc 32.2 30.5-36.0 g/dL LAB 56980-3([facility]) RDW RBC-Rto 12.7 11.5-15.0 % LAB 777-3([facility]) Platelet # Bld Auto 335 150-400 k/uL LAB 01008-3([facility]) PMV Bld Auto 10.8 9.0-12.7 fL LAB 770-8([facility]) Neutrophils/leuk NFr Bld Auto 49.0 % LAB 751-8([facility]) Neutrophils # Bld Auto 4.06 1.45-7.50 k/uL LAB 736-9([facility]) Lymphocytes/leuk NFr Bld Auto 30.5 % LAB 731-0([facility]) Lymphocytes # Bld Auto 2.52 1.00-4.00 k/uL LAB 5905-5([facility]) Monocytes/leuk NFr Bld Auto 18.4 % LAB 742-7([facility]) Monocytes # Bld Auto 1.52 High <0.87 k/uL LAB 713-8([facility]) Eosinophil/leuk NFr Bld Auto 1.5 % LAB 711-2([facility]) Eosinophil # Bld Auto 0.12 <0.46 k/uL LAB 706-2([facility]) Basophils/leuk NFr Bld Auto 0.4 % LAB 704-7([facility]) Basophils # Bld Auto 0.03 <0.11 k/uL LAB 50002-1([facility]) Imm Granulocytes/shraddha k NFr Bld Auto 0.2 % LAB 42879-5([facility]) Imm Granulocytes # Bld Auto <0.03 <0.10 k/uL LAB 31174-4([facility]) nRBC/100 WBC Bld-Rto 0.0 /100 WBC LAB 771-6([facility]) nRBC # Bld Auto <0.01 <0.01 k/u L LAB 77433-0([facility]) Differential method Bld Auto Performed By: #### 27839-1 # ### [facility] CLIA [id number] [address] [place] [address] [place] DEPRECATED HGB A1C BLD Collected: 09/23 11:04 AM Status: F Source: [facility] Order Comment: Specimen Type : BLOOD SPECIMEN Ordering Facility: [facility] Address: [address] [place] [address] TYPE CODE TESTS RESULT OUT OF RANGE REFERENCE UNITS LAB 4548-4([facility]) HbA1c MFr Bld 5.6 4.3-5.6 % Result Comment: [place] Rhonda betes Association guidelines indicate that patients with HgbA1c in the range 5.7-6.4% are at increased risk for development of diabetes, and intervention by lifestyle modification may be beneficial. HgbA1c greater or equal to 6.5% is considered diagnostic of diabetes. LAB 98013-5(INC) Est. average glucose Bld gHb Est-mCnc 114 mg/dL Result Comment: eAG: (Estima rosario average glucose) is a calculated value from HgbA1c and is liability claims representative of the average blood glucose level in the last 2-3 month period. Performed By: #### 04680-9 # ### [facility] CLIA [id number] [address] [place] [address] [place] Observed: 09/23/2024 10:11 AM Status: COMPLETED Source: [facility] HNO ID: [id number] Author: SHEFALI RICH APRN.SOCIAL MEDIA JOB TITLES Service: ? Author Type: Nurse Practitioner Type: [...] cholesterol most of the time. Follows with [facility]. Last Seen 2 weeks ago. Per patient for routine follow up without concern. Is on coumadin for DVT prophylaxis. Last 3 Encounter BP Readings: Date: BP: 09/23/2024 108/68 06/22/2024 122/70 06/07/2024 116/65 Emphysema: Follows With Dr. Chao at [facility]. Has yearly follow ups with next [...] 03/26/[address] 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 She is on trilogy Ellipta. She has [...] Right 09/21/2018 right reverse total shoulder arthroplasty [facility] REVISE MEDIAN N/CARPAL TUNNEL SURG Right 01/15/2024 [...] 5 mg by mouth once daily. Dr. Núñze leflunomide (ARAVA) 10 mg tablet Take 1 [...] Problem Relation Age of Onset Heart Mother [place] Heart Father [place] Diabetes Maternal Uncle Headache Sister Social History [...] can try to decrease this use of retirement narcotic. May try to increase use of [...] Observed: 09/23/2024 10:00 AM Status: COMPLETED Source: [facility] Office Visit (INTMWS) MALU KITCHEN ([id number]) 1945 F Vendor Date Time Provider Department 09/23/24 10:00 AM HILARIOWILDY INTMWS During your visit today, we recorded the following information about you: Pulse Respiration Blood pressure Weight 98/minute 16/minute 108/68 61.2 kg Hilario DAVON Meehan.SOCIAL MEDIA JOB TITLES 09/24/2024 12:18 PM Signed CC: Patient presents [...] cholesterol most of the time. Follows with [facility]. Last Seen 2 weeks ago. Per patient for routine follow up without concern. Is on coumadin for DVT prophylaxis. Last 3 Encounter BP Readings: Date: BP: 09/23/2024 108/68 06/22/2024 122/70 06/07/2024 116/65 Emphysema: Follows With Dr. Chao at [facility]. Has yearly follow ups with next [...] 03/26/[address] 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 She is on trilogy Ellipta. She has [...] Right 09/21/2018 right reverse total shoulder arthroplasty [facility] REVISE MEDIAN N/CARPAL TUNNEL SURG Right [...] Problem Relation Age of Onset Heart Mother [place] Heart Father [place] Diabetes Maternal Uncle Headache Sister Social History [...] can try to decrease this use of terminal carman narcotic. May try to increase use of gabapentin as we try to decrease this. - HYDROCODONE 5 MG-ACETAMINOPHEN 325 MG TABLET PDMP website checked and validated. All prescriptions have been APPROPRIATELY filled. No suspicious activity was identified. 09/23/2024 by Shefali Rich APRN.SOCIAL MEDIA JOB TITLES Shefali Rich APRN.SOCIAL MEDIA JOB TITLES Prescription instructions reviewed with patient as applicable. [...] Date Reviewed: 09/23/2024 Reviewed by: Shefali Rich APRN.SOCIAL MEDIA JOB TITLES - Fully Assessed Reason for Visit: Pre-Op [...] 90 tabletRfl: 3 ADVANCE CARE PLAN DISCUSSION [[id number]] Order #: [id number]: 1 COMPLETE BLOOD COUNT [SQCBC] Order #: [id number] FUTURE COMPREHENSIVE METABOLIC PANEL [SQCMP] Order #: [id number] FUTURE XR CHEST 2V FRONTAL/LAT [4714131] Order #: [id number] FUTURE HEMOGLOBIN A1C [GDUSZ8Y] Order #: [id number] FUTURE HYDROcodone-acetaminophen (NORCO) 5-325 mg per tabletTake [...] 03/11/2017 Uterovaginal prolapse [N81.4] 07/29/2013 03/11/2017 Cystocele [AHC8215] 07/29/2013 06/26/2023 Rotator cuff tear arthropathy of both shoulders*08/24/2013 PMB (postmenopausal bleeding) [N95.0] 09/07/2013 03/11/2017 Atrial fibrillation (HCC) [I48.91] 12/16/2014 Psoas tendinitis of right side [M76.11] 12/05/2015 03/11/2017 Gastroesophageal reflux disease without esophag*03/11/2016 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 *07/08/2016 Bilateral [...] for Encounter Date Provider Department Center 09/23/2024 [id number]-NEVNPSHEFALI RICH [facility] Encounter Status:Closed by SHEFALI RICH on 09/24/24 KINGAN Observed: 09/21/2024 12:00 AM Status: COMPLETED Source: [facility] Telephone (SparkroomPWS) MALU KITCHEN ([id number]) 1945 F Vendor Date Time Provider Department 09/21/24 ANDRA RODRIGUES During your visit today, we recorded the following information about you: Jennyfer Rodriguez LPN 09/21/2024 3:09 PM Signed Last INR: [...] you would like to recheck? Shefali Rich APRN.SOCIAL MEDIA JOB TITLES 09/22/2024 2:57 PM Signed I do not [...] 03/11/2017 Uterovaginal prolapse [N81.4] 07/29/2013 03/11/2017 Cystocele [HJQ6194] 07/29/2013 06/26/2023 Rotator cuff tear arthropathy of both shoulders*08/24/2013 PMB (postmenopausal bleeding) [N95.0] 09/07/2013 03/11/2017 Atrial fibrillation (HCC) [I48.91] 12/16/2014 Psoas tendinitis of right side [M76.11] 12/05/2015 03/11/2017 Gastroesophageal reflux disease without esophag*03/11/2016 nursing home current use of anticoagulant therapy *07/08/2016 [...] Observed: 09/14/2024 12:00 AM Status: COMPLETED Source: [facility] Telephone (INTMWS) MALU KITCHEN ([id number]) 1945 F Vendor Date Time Provider Department [...] Anticoagulation [8] Order(s):PROTHROMBIN TIME [SQPT] Order #: [id number] Prescriptions as of 09/15/2024 - HYDROcodone-acetaminophen (NORCO) [...] 03/11/2017 Uterovaginal prolapse [N81.4] 07/29/2013 03/11/2017 Cystocele [FWS2865] 07/29/2013 06/26/2023 Rotator cuff tear arthropathy of both shoulders*08/24/2013 PMB (postmenopausal bleeding) [N95.0] 09/07/2013 03/11/2017 Atrial fibrillation (HCC) [I48.91] 12/16/2014 Psoas tendinitis of right side [M76.11] 12/05/2015 03/11/2017 Gastroesophageal reflux disease without esophag*03/11/2016 nursing home current use of anticoagulant therapy *07/08/2016 [...] Observed: 09/07/2024 12:00 AM Status: COMPLETED Source: [facility] Telephone (INTMWS) MALU KITCHEN ([id number]) 1945 F Vendor Date Time Provider Department 09/07/24 CARMEN LINDA During your visit today, we recorded the following information about you: Marlene Easton, MOSHE 09/07/2024 1:55 PM Signed Pam house officer at [facility] calling. She states pt is having surgery on 10/[address] Bennett Hartman who is a nursing unit coordinator. Pam made a preop clearance appt with Carmen Linda for next Friday. Pam states that anesthesia requires all pts having surgery at [facility] to have a HANDH, BUN, Glucose, EKG and CXR. Pam wants to know if provider would like pt to have that done prior to the visit or will she just order when pt comes in for appt? Please call Pam back at [phone] and let her know. Pam is going to fax over the HANDP form and PAT orders to [phone]. Carmen Linda PA-C 09/07/2024 2:52 PM Signed Lab orders and CXR ordered-can have prior to the day of the visit. Carmen Linda PA-C direct admit Melissa Luz MA 09/07/2024 3:18 PM Signed Spoke to house officer Pam-patient unable to keep 09/14 appointment. [...] BLOOD COUNT AND DIFFERENTIAL [SQCBCDIF] Order #: [id number] FUTURE BASIC METABOLIC PANEL [SQBMP] Order #: [id number] FUTURE XR CHEST 2V FRONTAL/LAT [[id number]] Order #: [id number] FUTURE Prescriptions as of 09/07/2024 - HYDROcodone-acetaminophen [...] 03/11/2017 Uterovaginal prolapse [N81.4] 07/29/2013 03/11/2017 Cystocele [XTS5524] 07/29/2013 06/26/2023 Rotator cuff tear arthropathy of both shoulders*08/24/2013 PMB (postmenopausal bleeding) [N95.0] 09/07/2013 03/11/2017 Atrial fibrillation (HCC) [I48.91] 12/16/2014 Psoas tendinitis of right side [M76.11] 12/05/2015 03/11/2017 Gastroesophageal reflux disease without esophag*03/11/2016 nursing home current use of anticoagulant therapy *07/08/2016 [...] Observed: 09/04/2024 12:00 AM Status: COMPLETED Source: [facility] Telephone (INTMWS) MALU KITCHEN ([id number]) 1945 F Vendor Date Time Provider Department [...] insurance to pay. Patient aware routing to [employer] and wheel provider but normal limits. DEE Marroquin Jeffrey [...] Anticoagulation [8] Order(s):PROTHROMBIN TIME [SQPT] Order #: [id number] Prescriptions as of 09/06/2024 - HYDROcodone-acetaminophen (NORCO) [...] 03/11/2017 Uterovaginal prolapse [N81.4] 07/29/2013 03/11/2017 Cystocele [ASC1400] 07/29/2013 06/26/2023 Rotator cuff tear arthropathy of both shoulders*08/24/2013 PMB (postmenopausal bleeding) [N95.0] 09/07/2013 03/11/2017 Atrial fibrillation (HCC) [I48.91] 12/16/2014 Psoas tendinitis of right side [M76.11] 12/05/2015 03/11/2017 Gastroesophageal reflux disease without esophag*03/11/2016 nursing home current use of anticoagulant therapy *07/08/2016 [...] Observed: 08/23/2024 12:00 AM Status: COMPLETED Source: [facility] Telephone (INTMWS) MALU KITCHEN ([id number]) 1945 F Vendor Date Time Provider Department [...] Anticoagulation [8] Order(s):PROTHROMBIN TIME [SQPT] Order #: [id number] PROTHROMBIN TIME [SQPT] Order #: [id number] Prescriptions as of 09/01/2024 - HYDROcodone-acetaminophen (NORCO) [...] 03/11/2017 Uterovaginal prolapse [N81.4] 07/29/2013 03/11/2017 Cystocele [HVA7770] 07/29/2013 06/26/2023 Rotator cuff tear arthropathy of both shoulders*08/24/2013 PMB (postmenopausal bleeding) [N95.0] 09/07/2013 03/11/2017 Atrial fibrillation (HCC) [I48.91] 12/16/2014 Psoas tendinitis of right side [M76.11] 12/05/2015 03/11/2017 Gastroesophageal reflux disease without esophag*03/11/2016 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 *07/08/2016 Bilateral [...] Observed: 07/26/2024 12:00 AM Status: COMPLETED Source: [facility] Telephone (INTMWS) MALU KITCHEN ([id number]) 1945 F Vendor Date Time Provider Department [...] home monitoring company Thank you Shefali Rich APRN.[employer]IAL [employer] JOB TITLES Tammi Dotson MA 07/30/2024 11:18 AM Signed Patient notified. Allergies As of Date: 07/26/2024 Noted Allergy Reaction ADHESIVE TAPE (ROSINS) 08/22/2005 2 - Rash IBUPROFEN 06/06/2014 Comments: Pt on coumadin VICODIN (HYDROCODONE-ACETAMINOPHE*12/15/2014 8 - GI Upset Date Reviewed: 07/01/2024 Reviewed by: Randa Hairston RN - Fully Assessed Reason for Visit: Anticoagulation [8] Order(s):PROTHROMBIN TIME [SQPT] Order #: [id number] Prescriptions as of 07/30/2024 - dilTIAZem CD [...] 03/11/2017 Uterovaginal prolapse [N81.4] 07/29/2013 03/11/2017 Cystocele [AQF2186] 07/29/2013 06/26/2023 Rotator cuff tear arthropathy of both shoulders*08/24/2013 PMB (postmenopausal bleeding) [N95.0] 09/07/2013 03/11/2017 Atrial fibrillation (HCC) [I48.91] 12/16/2014 Psoas tendinitis of right side [M76.11] 12/05/2015 03/11/2017 Gastroesophageal reflux disease without esophag*03/11/2016 nursing home current use of anticoagulant therapy *07/08/2016 [...] Observed: 07/12/2024 12:00 AM Status: COMPLETED Source: [facility] Telephone (INTMWS) MALU KITCHEN ([id number]) 1945 F Vendor Date Time Provider Department [...] Anticoagulation [8] Order(s):PROTHROMBIN TIME [SQPT] Order #: [id number] Prescriptions as of 07/12/2024 - HYDROcodone-acetaminophen (NORCO) [...] 03/11/2017 Uterovaginal prolapse [N81.4] 07/29/2013 03/11/2017 Cystocele [NLG0400] 07/29/2013 06/26/2023 Rotator cuff tear arthropathy of both shoulders*08/24/2013 PMB (postmenopausal bleeding) [N95.0] 09/07/2013 03/11/2017 Atrial fibrillation (HCC) [I48.91] 12/16/2014 Psoas tendinitis of right side [M76.11] 12/05/2015 03/11/2017 Gastroesophageal reflux disease without esophag*03/11/2016 nursing home current use of anticoagulant therapy *07/08/2016 [...] Observed: 07/01/2024 1:01 PM Status: COMPLETED Source: [facility] HNO ID: [id number] Author: ROBIN WHITEHEAD MD Service: Pulmonary Disease [...] prn) Access site: R Internal jugular vein [place] size: 7.5 F. Anesthesia: Lidocaine 1% Procedure Narrative: Consent was obtained. Time out taken. Performed at procedure room in [facility] Interventional Tech Brazer Tester Under sterile condition, lidocaine 1 % (5 ml) was applied and under US guidance a 8.0 F introducer was inserted without difficulty. Wire was noted to be located in the SVC under fluoroscopy. A [place] catheter was advanced to RIGHT pulmonary artery [...] Stable Summary: Combined Pre-and Postcapillary Pulmonary Hypertension (Television Agent-PH) with Reduced cardiac index. Negative nitric oxide [...] Observed: 06/28/2024 12:00 AM Status: COMPLETED Source: [facility] Telephone (INTMWS) MALU KITCHEN ([id number]) 1945 F Vendor Date Time Provider Department [...] Anticoagulation [8] Order(s):PROTHROMBIN TIME [SQPT] Order #: [id number] Prescriptions as of 06/28/2024 - predniSONE (DELTASONE) [...] 03/11/2017 Uterovaginal prolapse [N81.4] 07/29/2013 03/11/2017 Cystocele [PID7161] 07/29/2013 06/26/2023 Rotator cuff tear arthropathy of both shoulders*08/24/2013 PMB (postmenopausal bleeding) [N95.0] 09/07/2013 03/11/2017 Atrial fibrillation (HCC) [I48.91] 12/16/2014 Psoas tendinitis of right side [M76.11] 12/05/2015 03/11/2017 Gastroesophageal reflux disease without esophag*03/11/2016 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 *07/08/2016 Bilateral [...] Observed: 06/22/2024 10:44 AM Status: COMPLETED Source: [facility] HNO ID: [id number] Author: ANDRA RODRIGUES MD Service: ? Author [...] following reasons: The patient has a prior [place] or stroke diagnosis No problem-specific Assessment AND [...] 03/26/[address] 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 She is on trilogy Ellipta. She has [...] Right 09/21/2018 right reverse total shoulder arthroplasty [facility] REVISE MEDIAN N/CARPAL TUNNEL SURG Right 01/15/2024 Right Carpal tunnel release WRIST SURGERY HX Left 2018 removed 3 bones in wrist FAMILY HISTORY Problem Relation Age of Onset Heart Mother [place] Heart Father [place] Diabetes Maternal Uncle Headache Sister Social History [...] Observed: 06/22/2024 10:00 AM Status: COMPLETED Source: [facility] Office Visit (INTMWS) MALU KITCHEN ([id number]) 1945 F Vendor Date Time Provider Department [...] following reasons: The patient has a prior [place] or stroke diagnosis No problem-specific Assessment AND [...] 03/26/[address] Chao at [facility] lung center. She is on trilogy [...] Problem Relation Age of Onset Heart Mother [place] Heart Father [place] Diabetes Maternal Uncle Headache Sister Social History [...] 03/11/2017 Uterovaginal prolapse [N81.4] 07/29/2013 03/11/2017 Cystocele [TPV5203] 07/29/2013 06/26/2023 Rotator cuff tear arthropathy of both shoulders*08/24/2013 PMB (postmenopausal bleeding) [N95.0] 09/07/2013 03/11/2017 Atrial fibrillation (HCC) [I48.91] 12/16/2014 Psoas tendinitis of right side [M76.11] 12/05/2015 03/11/2017 Gastroesophageal reflux disease without esophag*03/11/2016 nursing home current use of anticoagulant therapy *07/08/2016 [...] edema Level of Service: OFFICE/OUTPATIENT ESTABLISHED MOD [facility] 30 MIN [43472] Additional E/M codes: VISIT CPLX INHERENT EANDM ASSOC WITH MED * Encounter Status:Closed by ANDRA RODRIGUES on 06/22/24 [place] Observed: 06/22/2024 12:00 AM Status: COMPLETED Source: [facility] Telephone (PAKE[employer]diagnosis) MALU KITCHEN ([id number]) 1945 F Vendor Date Time Provider Department [...] 03/11/2017 Uterovaginal prolapse [N81.4] 07/29/2013 03/11/2017 Cystocele [FHX7567] 07/29/2013 06/26/2023 Rotator cuff tear arthropathy of both shoulders*08/24/2013 PMB (postmenopausal bleeding) [N95.0] 09/07/2013 03/11/2017 Atrial fibrillation (HCC) [I48.91] 12/16/2014 Psoas tendinitis of right side [M76.11] 12/05/2015 03/11/2017 Gastroesophageal reflux disease without esophag*03/11/2016 nursing home current use of anticoagulant therapy *07/08/2016 [...] Observed: 06/18/2024 12:00 AM Status: COMPLETED Source: [facility] Telephone ([email or web address]) MALU KITCHEN ([id number]) 1945 F Vendor Date Time Provider Department 06/18/24 ROBIN WHITEHEAD [facility] During your visit today, we recorded the [...] 03/11/2017 Uterovaginal prolapse [N81.4] 07/29/2013 03/11/2017 Cystocele [HTK3431] 07/29/2013 06/26/2023 Rotator cuff tear arthropathy of both shoulders*08/24/2013 PMB (postmenopausal bleeding) [N95.0] 09/07/2013 03/11/2017 Atrial fibrillation (HCC) [I48.91] 12/16/2014 Psoas tendinitis of right side [M76.11] 12/05/2015 03/11/2017 Gastroesophageal reflux disease without esophag*03/11/2016 nursing home current use of anticoagulant therapy *07/08/2016 [...] Observed: 024 2:35 PM Status: F Source: [facility] * * *Final Report* * * DATE OF EXAM: Jun 17 2024 2:35PM DCN 0032 - NM LUNG VENT / PERF [...] extremity Doppler ultrasound and/or CT Chest PE. Block And Case Maker: JUAN F Transcribe Date/Time: Jun 17 2024 2:51P Dictated by : DELIA BAEZ DO This examination was interpreted and the report reviewed and electronically signed by: MELVI CAM MD on Jun 17 2024 3:05PM EST [id number] PROGRESS Observed: 06/17/2024 2:00 PM Status: COMPLETED Source: [facility] HNO ID: [id number] Author: ABISAI CASTILLO RT(R) Service: Nuclear Medicine Author Type: Record Systems Analyst Type: Progress Notes Filed: 06/17/2024 14:29 Note [...] PATIENT PRESENTS WITH AN IMPLANTABLE OR ATTACHED CIVIL DESIGNER: No CREATININE: Creatinine Date Value Ref Range [...] [address] PERFORMED: No IV SITE: [place] only - not applicable, oral or physician administered agents given to patient straight stick to ;ac POST EXAM PIV STATUS: Discontinued PROCEDURE TYPE: VQ Scan: 0.8 mCi of Tc99m DTPA was inhaled. 5.8 mCi of Tc99m MAA was administered IV.at 1425 ADMINISTRATION TIME: 1408 PATIENT DISCHARGED TO: Ambulatory patient, left [place] department area. Is this a therapy: No A Diagnostic radioactive procedure has taken place, with no further precautions necessary other than routine body substance precautions. More information regarding radiation safety can be found using this link: [email or web address] [email or web address]%20Nuclear%20Medicine%[email or web address] SIGNATURE: JULIO C Garcia) PATIENT NAME: Malu Kitchen DATE: June 17, 2024 TIME: 2:28 PM PAGER/CONTACT #: PROCEDURE Observed: 06/15/2024 2:22 PM Status: COMPLETED Source: [facility] HNO ID: [id number] Author: SALVATORE YO RPFT Service: ? Author [...] needed. SIGNATURE: Gary Stein MD PATIENT NAME: Mlau Kitchen DATE: June 18, 2024 TIME: 1:40 [...] Observed: 06/15/2024 2:19 PM Status: COMPLETED Source: [facility] HNO ID: [id number] Author: SALVATORE YO RPFT Service: ? Author Type: Respiratory Therapist Type: Progress Notes Filed: 06/15/2024 14:23 Note Text: PULM FUNCTION: Provider: Robin Whitehead MD Assisting Tech: Salvatore Yo RPFT Spirometry: 1 DLCO: 1 6 MW: 1 CT CHEST WO IVCON Observed: 06/15/2024 1:27 PM Status: F Source: [facility] * * *Final Report* * * DATE OF EXAM: Jun 15 2024 1:27PM [facility] 0541 - CT CHEST WO IVCON [...] obtained in 12 months --END OF FINDING-- Block And Case Maker: JUAN F Transcribe Date/Time: Jun 21 2024 8:15A Dictated by : ALLA ROMAN MD This examination was interpreted and the report reviewed and electronically signed by: ALLA ROMAN MD on Jun 21 2024 8:27AM EST [id number] ACTIONABLE PROGRESS Observed: 06/15/2024 1:00 PM Status: COMPLETED Source: [facility] HNO ID: [id number] Author: RENEA CAVANAUGH RT(R) Service: ? Author Type: Record Systems Analyst Type: Progress Notes Filed: 06/15/2024 15:10 Note [...] PATIENT PRESENTS WITH AN IMPLANTABLE OR ATTACHED CIVIL DESIGNER: No RADIOLOGY DEPARTMENT: CT; Exam(s) Completed: Chest PERIPHERAL IV DATA: Not applicable SIGNED BY: RT Josette(R) June 15, 2024 3:09 PM CNPN Observed: 06/14/2024 12:00 AM Status: COMPLETED Source: [facility] Telephone (INTMWS) MALU KITCHEN ([id number]) 1945 F Vendor Date Time Provider Department [...] Per home INR pt checks this weekly. Sheafli Rich APRN.CNP 06/14/2024 1:24 PM Signed INR in therapeutic range. Continue current dose and recheck in 2 weeks Thank you Shefali Rich APRN.[employer] JOB TITLES Tammi Dotson MA 06/14/2024 1:53 PM Signed Patient notified. Allergies As of Date: 06/14/2024 Noted Allergy Reaction ADHESIVE TAPE (ROSINS) 08/22/2005 2 - Rash IBUPROFEN 06/06/2014 Comments: Pt on coumadin VICODIN (HYDROCODONE-ACETAMINOPHE*12/15/2014 8 - GI Upset Date Reviewed: 06/04/2024 Reviewed by: Robin Whitehead MD - Fully Assessed Reason for Visit: Anticoagulation [8] Order(s):PROTHROMBIN TIME [SQPT] Order #: [id number] Prescriptions as of 06/14/2024 - HYDROcodone-acetaminophen (NORCO) [...] 03/11/2017 Uterovaginal prolapse [N81.4] 07/29/2013 03/11/2017 Cystocele [PDR7965] 07/29/2013 06/26/2023 Rotator cuff tear arthropathy of both shoulders*08/24/2013 PMB (postmenopausal bleeding) [N95.0] 09/07/2013 03/11/2017 Atrial fibrillation (HCC) [I48.91] 12/16/2014 Psoas tendinitis of right side [M76.11] 12/05/2015 03/11/2017 Gastroesophageal reflux disease without esophag*03/11/2016 nursing home current use of anticoagulant therapy *07/08/2016 [...] 06/04/2024 2:13 PM S tatus: F Source: [facility] Order Comment: Specimen Type : BLOOD SPECIMEN Ordering Facility: [facility] Address: [address] [place] [address] TYPE CODE TESTS RESULT OUT OF RANGE REFERENCE UNITS LAB 82886-5(LOINC) NT-proBNP SerPl-mCnc 4088 High <450 pg/mL Performed By: #### 55254-4 # ### [facility] CLIA [id number] [address] OF [facility] HIV1+2 AB SERPL QL IA Collected: 2023 2:13 PM Status: F Source: [facility] Order Comment: Specimen Type : BLOOD SPECIMEN Ordering Facility: [facility] Address: [address] [place] [address] TYPE CODE TESTS RESULT OUT OF RANGE REFERENCE UNITS LAB 64169-4(LOINC) HIV 1+2 Ab+HIV1 p24 Ag SerPl Ql IA Nonreactive Nonreactive Result Comment: [place] Rev. Co de 3701.243(E): This information has [...] the reporting units and/or reference range. LAB 17294-9(LOINC) HIV 1 AND 2 Ab SerPlBld IA.rapid Result Comment: Test not ind icated. LAB 42186-4(LOINC) HIV IA algorithm interp SerPlBld-Imp Result Comment: No evidence of HIV-1 or HIV-2 infection. Should recent infection be suspected, repeat testing may be considered 2-3 weeks after this draw. Performed By: #### 36947-3 # ### [facility] CLIA [id number] [address] STATES OF [facility] CHROMATIN AB SERPL-ACNC Collected: 06/04/2024 2:13 PM Status: F Source: [facility] Order Comment: Specimen Type : BLOOD SPECIMEN Ordering Facility: [facility] Address: [address] [place] [address] TYPE CODE TESTS RESULT OUT OF RANGE REFERENCE UNITS LAB CHRABQL CHROMATIN AB QUAL Negative Negative LAB 75504-6(INC) Chromatin Ab SerPl-aCnc <0.2 <1.0 AI Result Comment: Test Methodo logy: Multiplex flow immunoassay. Performed By: #### 07356-6, 40627-3, 43303-0, 41607-2, 64573-2, 09067-8, 57478- 5, 58047-2 #### [facility] CLIA [id number] [address] [place] [address] [place] KAYLA CELERY WRAPPER AB SER-ACNC Collected: 06/04/2024 2:[address] atus: F Source: [facility] Order Comment: Specimen Type : BLOOD SPECIMEN Ordering Facility: [facility] Address: [address] [place] [address] TYPE CODE TESTS RESULT OUT OF RANGE REFERENCE UNITS LAB RIRNPQL RIBOSOMAL CELERY WRAPPER QUAL Negative Negative Result Comment: Anti-Ribosom al RNA (Ribosomal P) antibody is used as an aid in diagnosis of systemic autoimmune diseases especially systemic lupus erythematosus and mixed connective tissue disease. Cross-reactivity with Anti-valdes antibody is not uncommon. Clinical correlation is required. Test Methodology: Multiplex flow immunoassay. LAB 25262-9(LOINC) KAYLA CELERY WRAPPER Ab Ser-aCnc <0.2 <1.0 AI Performed By: #### 23072-8, 74913-9, 55634-2, 25114-5, 17939-4, 41178-2, 39900- 5, 57499-0 #### [facility] CLIA [id number] [address] [place] [address] [place] K[place]LA SS-B AB SER-ACNC Collected: 06/04/2024 2:13 PM S tatus: F Source: [facility] Order Comment: Specimen Type : BLOOD SPECIMEN Ordering Facility: [facility] Address: [address] [place] [address] TYPE CODE TESTS RESULT OUT OF RANGE REFERENCE UNITS LAB 78479-3(INC) KAYLA SS-B Ab Ser-aCnc <0.2 <1.0 AI Result Comment: Anti-SSB (an ti-La) antibody is used as an aid in diagnosis of a variety of systemic autoimmune diseases, especially for Sjogren's syndrome and systemic lupus erythematosus. Clinical correlation is required. Test Methodology: Multiplex flow immunoassay. LAB SSBABQL SSB ANTIBODY QUAL Negative Negative Performed By: #### 85249-0, 67949-2, 56329-2, 74731-4, 71055-7, 46441-5, 22195- 5, 15120-3 #### [facility] CLIA [id number] [address] [place] [address] [place] CENTROMERE AB SER QL IF Collected: 06/04/2024 2:13 PM Status: F Source: [facility] Order Comment: Specimen Type : BLOOD SPECIMEN Ordering Facility: [facility] Address: [address] [place] [address] TYPE CODE TESTS RESULT OUT OF RANGE REFERENCE UNITS LAB CENTABQL CENTROMERE AB QUAL Negative Negative LAB 8068-9(LOINC) Centromere Ab Ser-aCnc <0.2 <1.0 AI Result Comment: Anti-centrom ere antibody is used as in aid in diagnosis of systemic sclerosis. Clinical correlation is required. Test Methodology: Multiplex flow immunoassay. Performed By: #### 45205-2, 20391-3, 31429-5, 75507-5, 94035-7, 69226-0, 71285- 5, 37619-6 #### [facility] CLIA [id number] [address] [place], [place] [id number] [place] KAYLA SM IGG SER-ACNC Collected: 06/04/20 2:13 PM Status: F Source: [facility] Order Comment: Specimen Type : BLOOD SPECIMEN Ordering Facility: [facility] Address: [address] [place] [address] TYPE CODE TESTS RESULT OUT OF RANGE REFERENCE UNITS LAB SMIB SM ANTIBODY QUAL Negative Negative Result Comment: Anti-Sm (Smi th) antibody is used as an aid in diagnosis of systemic lupus erythematosus and its presence is associated with renal disease. A negative result cannot rule out systemic lupus erythematosus. Clinical correlation is required. Test Methodology: Multiplex flow immunoassay. LAB 42576-9[facility] KAYLA SM IgG Ser-aCnc <0.2 <1.0 AI Performed By: #### 47718-4, 46526-6, 25406-2, 73103-7, 93231-5, 01835-8, 11016- 5, 39865-6 #### [facility] CLIA [id number] [address] [place], [place] [id number] [place] KAYLA SCL70 IGG SER IA-ACNC Collected: 06/04/2024 2:13 PM Status: F Source: [facility] Order Comment: Specimen Type : BLOOD SPECIMEN Ordering Facility: [facility] Address: [address] [place] [address] TYPE CODE TESTS RESULT OUT OF RANGE [...] Methodology: Multiplex flow immunoassay. Performed By: #### 84384-8, 91698-0, 63424-2, 05890-7, 29761-6, 98884-9, 76004- 5, 96311-2 #### [facility] CLIA [id number] [address] [place] [address] KAYLA JO1 AB SER-ACNC Collected: 06/04/20 24 2:13 PM Status: F Source: [facility] Order Comment: Specimen Type : BLOOD SPECIMEN Ordering Facility: [facility] Address: [address] [place] [address] TYPE CODE TESTS RESULT OUT OF RANGE REFERENCE UNITS LAB [id number] WILD 1 ANTIBODY QUAL Negative Negative Result Comment: Anti-WILD-1 an tibody is used as an aid in diagnosis of polymyositis and dermatomyositis especially with pulmonary involvement. A negative result cannot rule out polymyositis or dermatomyositis. Clinical correlation is required. Test Methodology: Multiplex flow immunoassay. LAB 45606-2(LOINC) KAYLA Jo1 Ab Ser-aCnc <0.2 <1.0 AI Performed By: #### 24634-4, 34628-9, 38586-6, 60659-1, 35493-7, 16630-7, 10786- 5, 03750-4 #### [facility] CLIA [id number] [address] [place] [address] OF [place] K[place]LA SS-A AB SER-ACNC Collected: 024 2:13 PM Status: F Source: [facility] Order Comment: Specimen Type : BLOOD SPECIMEN Ordering Facility: [facility] Address: [address] [place] [address] TYPE CODE TESTS RESULT OUT OF RANGE REFERENCE UNITS LAB SSAABQL SSA ANTIBODY QUAL Positive Abnormal Negative LAB 15715-4(LOINC) KAYLA SS-A Ab Ser-aCnc 2.0 High <1.0 AI Result Comment: Test Methodo logy: Multiplex flow immunoassay. Performed By: #### 25449-1, 81102-4, 90139-3, 64761-3, 02566-2, 13390-4, 10516- 5, 69957-0 #### [facility] CLIA [id number] [address] [place] [address] KAYLA CELERY WRAPPER AB SER-ACNC Collected: 06/04/2024 2:[address] atus: F Source: [facility] Order Comment: Specimen Type : BLOOD SPECIMEN Ordering Facility: [facility] Address: [address] [place] [address] TYPE CODE TESTS RESULT OUT OF RANGE REFERENCE UNITS LAB RNAABQL ANTI-CELERY WRAPPER QUAL Negative Negative LAB 76816-6(LOINC) KAYLA CELERY WRAPPER Ab Ser-aCnc <0.2 <1.0 AI Performed By: #### 79011-2, 79680-2, 63379-1, 52360-8, 22630-6, 24373-9, 76309- 5, 25303-9 #### [facility] CLIA [id number] [address] [place] [address] SYDNEE BY IFA WITH REFLEX Collected: 06/04 2:13 PM Status: F Source: [facility] Order Comment: Specimen Type : BLOOD SPECIMEN Ordering Facility: [facility] Address: [address] [place] [address] TYPE CODE TESTS RESULT OUT OF RANGE [...] cells. Performed By: #### ANAIFR ## ## [facility] CLIA [id number] [address] [place] [address] PROGRESS Observed: 06/04/2024 1:15 PM Status: COMPLETED Source: [facility] HNO ID: [id number] Author: ROBIN WHITEHEAD MD Service: ? Author [...] albuterol. Follows with Dr Jeremie leiva in [place] (pulmonary). She is on supplemental O2 (4LNC), but only wears qHS. + heavy snoring. She has never been tested for MARKELL, but she believes she may have it. Recently hospitalized for pneumonia/COPD exacerbation. Hospitalized in [place]. Treated with course of abx with clinical [...] unspecified HF chronicity, unspecified heart failure type ([facility]) 05/12/2023 Cystocele 07/29/2013 Diarrhea Diverticulosis of [...] 03/26/[address] 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 She is on trilogy Ellipta. 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 Robin Whitehead MD June 04, 2024 1:52 PM CNOV Observed: 06/04/2024 1:00 PM Status: COMPLETED Source: [facility] Office Visit ([facility]) MALU KITCHEN ([id number]) 1945 F Vendor Date Time Provider Department 06/04/24 1:00 PM ROBIN WHITEHEAD [facility] During your visit today, we recorded the [...] albuterol. Follows with Dr Jeremie leiva in [place] (pulmonary). She is on supplemental O2 (4LNC), but only wears qHS. + heavy snoring. She has never been tested for MARKELL, but she believes she may have it. Recently hospitalized for pneumonia/COPD exacerbation. Hospitalized in [place]. Treated with course of abx with clinical [...] 03/26/[address] 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 She is on trilogy Ellipta. She has [...] the prior OUTSIDE echocardiographic exam performed on 11/22/21([facility]). 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 Robin Whitehead MD June 04, 2024 1:52 PM Referring Provider: ROBIN WHITEHEAD [[id number]] Allergies As of Date: 06/04/2024 Noted Allergy [...] [Z11.4] Order(s):NT PRO BNP [SQNTBNP] Order #: [id number] FUTURE ANTI KAYLA ID [SQENAID] Order #: [id number] FUTURE SYDNEE BY IFA WITH REFLEX [SQANAIFR] Order #: [id number] FUTURE NM LUNG VENT / PERF VQ [8891023] Order #: [id number] FUTURE CT CHEST WO IVCON [0876862] Order #: [id number] FUTURE CARDIAC CHOPPED STRAND OPERATOR ORDER [[id number]] Order #: [id number]: 1 HIV 1/2 COMBO WITH REFLEX TO DIFFERENTIATION [SQHIV12] Order #: [id number] FUTURE SIX MINUTE WALK [] Order #: [id number]: 1 FUTURE SPIROMETRY BASELINE ONLY [] Order #: [id number]: 1 FUTURE LUNG DIFFUSION CAPACITY (DLCO) [] Order #: [id number]: 1 FUTURE Prescriptions as of 06/04/2024 - [...] 03/11/2017 Uterovaginal prolapse [N81.4] 07/29/2013 03/11/2017 Cystocele [PXU1256] 07/29/2013 06/26/2023 Rotator cuff tear arthropathy of both shoulders*08/24/2013 PMB (postmenopausal bleeding) [N95.0] 09/07/2013 03/11/2017 Atrial fibrillation (HCC) [I48.91] 12/16/2014 Psoas tendinitis of right side [M76.11] 12/05/2015 03/11/2017 Gastroesophageal reflux disease without esophag*03/11/2016 nursing home current use of anticoagulant therapy *07/08/2016 [...] for Encounter Date Provider Department Center 06/04/2024 [id number] WHITEHEAD [facility] Encounter Status:Closed by ROBIN WHITEHEAD on 06/04/24 CNPN Observed: 06/03/2024 12:00 AM Status: COMPLETED Source: [facility] Telephone (INTMWS) MALU KITCHEN ([id number]) 1945 F Vendor Date Time Provider Department [...] Date Reviewed: 05/28/2024 Reviewed by: Jewels Augustin APRN.SOCIAL MEDIA JOB TITLES - Fully Assessed Reason for Visit: Anticoagulation [8] Order(s):PROTHROMBIN TIME [SQPT] Order #: [id number] Prescriptions as of 06/03/2024 - HYDROcodone-acetaminophen (NORCO) [...] 03/11/2017 Uterovaginal prolapse [N81.4] 07/29/2013 03/11/2017 Cystocele [CWY4971] 07/29/2013 06/26/2023 Rotator cuff tear arthropathy of both shoulders*08/24/2013 PMB (postmenopausal bleeding) [N95.0] 09/07/2013 03/11/2017 Atrial fibrillation (HCC) [I48.91] 12/16/2014 Psoas tendinitis of right side [M76.11] 12/05/2015 03/11/2017 Gastroesophageal reflux disease without esophag*03/11/2016 nursing home current use of anticoagulant therapy *07/08/2016 [...] Observed: 05/28/2024 8:50 AM Status: COMPLETED Source: [facility] HN ID: [id number] Author: JEWELS AUGUSTIN APRN.SOCIAL MEDIA JOB TITLES Service: ? Author Type: Nurse Practitioner Type: [...] completed Yes with visit today. Jewels Augustin APRN.SOCIAL MEDIA JOB TITLES Provider Documentation: In follow-up of hospitalization, Malu [...] for hospital discharge follow up. Admitted to [facility] 05/19/2024 for right lower lobe [...] 03/26/[address] Chao at [facility]. She is on trilogy [...] Problem Relation Age of Onset Heart Mother OH Heart Father [place] Diabetes Maternal Uncle Headache Sister Review of [...] to improve, for Keep next scheduled appointment.. MICHALE Moore CNOV Observed: 05/28/2024 8:40 AM Status: COMPLETED Source: [facility] Office Visit (INTMWS) MALU KITCHEN ([id number]) 1945 F Vendor Date Time Provider Department [...] for hospital discharge follow up. Admitted to [facility] 05/19/2024 for right lower lobe [...] 03/26/[address] 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 She is on trilogy Ellipta. She has [...] Problem Relation Age of Onset Heart Mother [place] Heart Father [place] Diabetes Maternal Uncle Headache Sister Review of [...] for Keep next scheduled appointment.. Jewels Augustin APRN-SOCIAL MEDIA JOB TITLES Allergies As of Date: 05/28/2024 Noted Allergy Reaction ADHESIVE TAPE (ROSINS) 08/22/2005 2 - Rash IBUPROFEN 06/06/2014 Comments: Pt on coumadin VICODIN (HYDROCODONE-ACETAMINOPHE*12/15/2014 8 - GI Upset Date Reviewed: 05/28/2024 Reviewed by: Jewels Augustin APRN.SOCIAL MEDIA JOB TITLES - Fully Assessed Reason for Visit: Hospital F/U [57] Cmt: admitted to [facility] 05/19/24 for pneumonia Primary Visit Diagnosis:Pneumonia of right lower lobe due to infectious organism [J18.9] Other Visit Diagnoses:Hospital discharge follow-up [Z09] Congestive heart failure, unspecified HF chronicity, unspecified heart failure type (HCC) [I50.9] Centrilobular emphysema (HCC) [J43.2] Simple chronic bronchitis (HCC) [J41.0] Order(s):XR CHEST 2V FRONTAL/LAT [1054697] Order #: [id number] FUTURE Prescriptions as of 05/28/2024 - HYDROcodone-acetaminophen [...] 03/11/2017 Uterovaginal prolapse [N81.4] 07/29/2013 03/11/2017 Cystocele [BOV1461] 07/29/2013 06/26/2023 Rotator cuff tear arthropathy of both shoulders*08/24/2013 PMB (postmenopausal bleeding) [N95.0] 09/07/2013 03/11/2017 Atrial fibrillation (HCC) [I48.91] 12/16/2014 Psoas tendinitis of right side [M76.11] 12/05/2015 03/11/2017 Gastroesophageal reflux disease without esophag*03/11/2016 nursing home current use of anticoagulant therapy *07/08/2016 [...] for Encounter Date Provider Department Center 05/28/2024 [id number] AUGUSTIN [facility] Encounter Status:Closed by JEWELS AUGUSTIN on 05/28/24 [place] Observed: 05/27/2024 12:00 AM Status: COMPLETED Source: [facility] Telephone (INTMWS) MALU KITCHEN ([id number]) 1945 F Vendor Date Time Provider Department [...] dose held since 05/23/2024, Patient was in [facility], released 05/22/2024 advised to hold [...] Anticoagulation [8] Order(s):PROTHROMBIN TIME [SQPT] Order #: [id number] Prescriptions as of 05/28/2024 - HYDROcodone-acetaminophen (NORCO) [...] 03/11/2017 Uterovaginal prolapse [N81.4] 07/29/2013 03/11/2017 Cystocele [SPP7894] 07/29/2013 06/26/2023 Rotator cuff tear arthropathy of both shoulders*08/24/2013 PMB (postmenopausal bleeding) [N95.0] 09/07/2013 03/11/2017 Atrial fibrillation (HCC) [I48.91] 12/16/2014 Psoas tendinitis of right side [M76.11] 12/05/2015 03/11/2017 Gastroesophageal reflux disease without esophag*03/11/2016 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 Patient reports she was released from [facility] 06/22/2024 dx pneumonia, INR was elevated in hospital, Coumadin was held until 06/22/2024. Please review and contact Patient, needs to schedule hospital f/u. Andra Johnson LPN, MD 05/25/2024 4:57 PM Signed Can you clarify if coumadin was held till 06/22/24? Or was that a typo? Andra Quevedo MD, Rachel L, MA 05/26/2024 9:20 AM Signed Per [facility] discharge summary, -on warfarin, continue [...] 03/11/2017 Uterovaginal prolapse [N81.4] 07/29/2013 03/11/2017 Cystocele [WDN4274] 07/29/2013 06/26/2023 Rotator cuff tear arthropathy of both shoulders*08/24/2013 PMB (postmenopausal bleeding) [N95.0] 09/07/2013 03/11/2017 Atrial fibrillation (HCC) [I48.91] 12/16/2014 Psoas tendinitis of right side [M76.11] 12/05/2015 03/11/2017 Gastroesophageal reflux disease without esophag*03/11/2016 nursing home current use of anticoagulant therapy *07/08/2016 [...] Observed: 05/12/2024 12:00 AM Status: COMPLETED Source: [facility] Telephone (INTMWS) FIDELINAMALU S ([id number]) 1945 F Vendor Date Time Provider Department [...] Anticoagulation [8] Order(s):PROTHROMBIN TIME [SQPT] Order #: [id number] Prescriptions as of 05/13/2024 - HYDROcodone-acetaminophen (NORCO) [...] 03/11/2017 Uterovaginal prolapse [N81.4] 07/29/2013 03/11/2017 Cystocele [TRW0520] 07/29/2013 06/26/2023 Rotator cuff tear arthropathy of both shoulders*08/24/2013 PMB (postmenopausal bleeding) [N95.0] 09/07/2013 03/11/2017 Atrial fibrillation (HCC) [I48.91] 12/16/2014 Psoas tendinitis of right side [M76.11] 12/05/2015 03/11/2017 Gastroesophageal reflux disease without esophag*03/11/2016 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 *07/08/2016 Bilateral [...] Observed: 05/07/2024 12:00 AM Status: COMPLETED Source: [facility] Telephone (INTMWS) MALU KITCHEN ([id number]) 1945 F Vendor Date Time Provider Department [...] Anticoagulation [8] Order(s):PROTHROMBIN TIME [SQPT] Order #: [id number] Prescriptions as of 05/07/2024 - zolpidem (AMBIEN) [...] 03/11/2017 Uterovaginal prolapse [N81.4] 07/29/2013 03/11/2017 Cystocele [MYR2094] 07/29/2013 06/26/2023 Rotator cuff tear arthropathy of both shoulders*08/24/2013 PMB (postmenopausal bleeding) [N95.0] 09/07/2013 03/11/2017 Atrial fibrillation (HCC) [I48.91] 12/16/2014 Psoas tendinitis of right side [M76.11] 12/05/2015 03/11/2017 Gastroesophageal reflux disease without esophag*03/11/2016 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 *07/08/2016 Bilateral [...] NAME / CODE REACTION SEVERITY SOURCE 12/15/2014 DRUG/744019209(SNOME D CT) HYDROCODONE-ACETA MINOPHEN GI UPSET [facility] 06/06/2014 DRUG INGREDI/593616386(SNOM ED CT) IBUPROFEN [facility] 08/22/2005 Chemical/289154160(S NO MED CT) ADHESIVE TAPE (ROSINS) RASH [facility] Environmental Allergy/695345735(SNOM ED CT) ADHESIVE U [facility] Miscellaneous Allergy/028220225(SNOM ED CT) No Known Drug Allergies U [facility] ENCOUNTERS ADMIT/DISCHARGE ACCOUNT NUMBER ADMITTING ENCOUNTER CLASS LOCATION SOURCE 04/23/2025/04/23/20 [id number] Ambulatory [facility] HospitalBuild ing:WOFM [facility] 03/11/2025/03/11/20 [id number] Ambulatory [facility] HospitalBuild ing:WOVL [facility] 03/11/2025/03/11/20 [id number] Ambulatory [facility] HospitalBuild ing:WOIA [facility] 03/04/2025/03/04/20 [id number] Ambulatory [facility] HospitalBuild ing:DEO [facility] 02/07/2025/02/08/20 [id number] BENNETT HARTMAN DPM Ambulatory BuildinR oom: [address] 01/25/2025 [id number] [facility]/25/2025/01/26/20 [id number] Ambulatory [facility] HospitalBuild ing:DEO [facility] 01/25/2025/01/26/20 [id number] Ambulatory [facility] HospitalBuild ing:WOSHIRLEY [facility] 11/01/2024/11/02/19 25 [id number] Ambulatory [facility] HospitalBuild ing:TINY [facility] 10/15/2024/10/16/19 25 [id number] Ambulatory [facility] HospitalBuild ing:WOLB [facility] 10/15/2024 [id number] Ambulatory [facility] HospitalBuild ing:WOLEmma [facility] 10/15/2024/10/16/19 25 [id number] Ambulatory [facility] HospitalBuild ing:TINY [facility] 09/23/2024/09/23/19 25 [id number] [facility] 09/23/2024/09/23/19 25 [id number] Ambulatory [facility] HospitalBuild ing:WOLB [facility] 09/23/2024/09/23/19 [id number] Ambulatory [facility] HospitalBuild ing:WOIA [facility] 09/14/2024 [id number] Ambulatory [facility] HospitalBuild ing:WOCT [facility] 07/01/2024 [id number] ROBIN WHITEHEAD [facility] POOLBed: 03 [facility] 06/22/2024/06/22/20 24 [id number] [facility]/2024 [id number] [facility]AKNM [facility] 06/15/2024/06/15/20 24 [id number] [facility]06/15/20 24 [id number] [facility] 06/15/2024/06/15/20 24 [id number] [facility] 06/15/2024/06/15/20 24 [id number] [facility]/04/[facility]/06/04/20 24 [id number] [facility]AKLPB [facility] 06/04/2024/06/04/20 24 [id number] Ambulatory [facility] HospitalBuild ing:[facility] 05/28/2024/05/28/20 24 [id number] Ambulatory [facility] HospitalBuild ing:WOIA [facility] 05/08/2024/05/08/20 24 [id number] [facility] PAYERS ENCOUNTER GUARANTOR PAYER SUBSCRIBER SOURCE 04/23/2025 Primary Insuranc e:BRETTO SHAWN HMOPolicy Number: [id number] Date:6844-61-37Upcx Name:Karley ROSENBAUM: [id number] [place] [address] [facility] 03/11/2025 Primary Insuranc e:MMO MEDADVANTAGE HMOPolicy Number: [id number] Date:6528-31-71Ajeg Name:Karley MALU S FIDELINADOB: [id number] [place] [address] [facility] 03/11/2025 Primary Insuranc e:MMO MEDADVANTAGE HMOPolicy Number: [id number] Date:9082-11-36Bxtb Name:Karley RICHMONDAlexis Fraser REGGIEB: [id number] [place] [address] [facility] 03/04/2025 Primary Insuranc e:MMO MEDADVANTAGE HMOPolicy Number: [id number] Date:1987-85-67Byvl Name:Karley PAREDESB: [id number] [place] [address] [facility] 02/07/2025 MALU PAREDESB: [place] [address]Cpv: () Primary Insurance:[employer] MEDICARE OUTPATIENTPolicy Number: [id number] Date: MALU PAREDESB: [id number] [place] [address] [facility] 01/25/2025 Primary Insuranc e:MMO MEDADVANTAGE HMOPolicy Number: [id number] Date:2774-31-76Ebuz Name:Karley PAREDESB: [id number] [place] [address] [facility] 01/25/2025 Primary Insuranc e:MMO MEDADVANTAGE HMOPolicy Number: [id number] Date:5907-87-99Qclf Name:Karley PAREDESB: [id number] [place], [place] [address] [place] [address] 01/25/2025 Primary Insuranc e:MMO MEDADVANTAGE HMOPolicy Number: [id number] Date:5741-71-58Mueh Name:Karley Fraser REGGIEB: [id number] [place], [place] [address] [place] [address] 11/01/2024 Primary Insuranc e:MMO MEDADVANTAGE HMOPolicy Number: [id number] Date:0369-12-20Pklk Name:Karley RICHMONDAlexis Fraser REGGIEB: [id number] [place], [place] [address] [place] [address] 10/15/2024 Primary Insuranc e:MMO MEDADVANTAGE HMOPolicy Number: [id number] Date:5927-90-32Lgkt Name:Karley PAREDESB: [id number] [place], [place] [address] [place] [address] 10/15/2024 Primary Insuranc e:MMO MEDADVANTAGE HMOPolicy Number: [id number] Date:5991-08-87Qjdd Name:Karley PAREDESB: [id number] [place], [place] [address] [place] [address] 10/15/2024 Primary Insuranc e:MMO MEDADVANTAGE HMOPolicy Number: [id number] Date:4010-77-00Klog Name:Karley RICHMONDA Bria PAREDESB: [id number] [place], [place] [address] [place] [address] 09/23/2024 Primary Insuranc e:MMO MEDADVANTAGE HMOPolicy Number: [id number] Date:3678-36-35Sfrg Name:Karley MALU S REGGIEB: [id number] [place], [place] [address] [place] [address] 09/23/2024 Primary Insuranc e:MMO MEDADVANTAGE HMOPolicy Number: [id number] Date:2500-99-34Srcr Name:Karley Fraser FIDELINADOB: [id number] [place], [place] [address] [place] [address] 09/23/2024 Primary Insuranc e:MMO MEDADVANTAGE HMOPolicy Number: [id number] Date:9382-08-62Nyga Name:Karley Fraser FIDELINADOB: [id number] [place], [place] [address] [place] [address] 09/14/2024 Primary Insuranc e:MMO MEDADVANTAGE HMOPolicy Number: [id number] Date:2343-11-10Orng Name:Karley Fraser REGGIEB: [id number] [place], [place] [address] [place] [address] 07/01/2024 Primary Insuranc e:MMO MEDADVANTAGE HMOPolicy Number: [id number] Date:3882-38-20Ljky Name:Karley Fraser FIDELINADOB: [id number] [place], [place] [address] [address] 06/22/2024 Primary Insuranc e:MMO MEDADVANTAGE HMOPolicy Number: [id number] Date:7549-99-11Afdm Name:Karley Fraser FIDELINADOB: [id number] [place], [place] [address] [place] [address] 06/17/2024 Primary Insuranc e:MMO MEDADVANTAGE HMOPolicy Number: [id number] Date:1949-55-04Honk Name:Karley MALU S REGGIEB: [id number] [place], [place] [address] [place] [address] 06/15/2024 Primary Insuranc e:MMO MEDADVANTAGE HMOPolicy Number: [id number] Date:5069-48-25Eevk Name:Karley MALU S REGGIEB: [id number] [place] [address] [facility] 06/15/2024 Primary Insuranc e:MMO MEDADVANTAGE HMOPolicy Number: [id number] Date:4364-95-45Rhmk Name:Karley Fraser REGGIEB: [id number] [place] [address] [facility] 06/15/2024 Primary Insuranc e:MMO MEDADVANTAGE HMOPolicy Number: [id number] Date:3310-96-70Twpx Name:Karley MALU S REGGIEB: [id number] [place] [address] [facility] 06/15/2024 Primary Insuranc e:MMO MEDADVANTAGE HMOPolicy Number: [id number] Date:2459-60-63Kmfk Name:Karley PAREDESB: [id number] [place] [address] [facility] 06/04/2024 Primary Insuranc e:MMO MEDADVANTAGE HMOPolicy Number: [id number] Date:5120-78-96Ybly Name:Karley RICHMONDA Bria PAREDESB: [id number] [place] [address] [facility] 06/04/2024 Primary Insuranc e:MMO MEDADVANTAGE HMOPolicy Number: [id number] Date:9778-41-98Mdik Name:Karley PETERSENMALU Bria PAREDESB: [id number] [place] [address] [facility] 05/28/2024 Primary Insuranc e:MMO MEDADVANTAGE HMOPolicy Number: [id number] Date:4811-71-04Fmfb Name:Karley MALU Bria PAREDESB: [id number] [place] [address] [facility] 05/08/2024 Primary Insuranc e:MMO MEDADVANTAGE HMOPolicy Number: [id number] Date:4907-23-08Ynuk Name:Karley KITCHENB: [id number] Bria [place] [facility] [place] [address] [facility]
[2025-04-26 18:10] LABS: Hematocrit 41.6 % (37-47); Hemoglobin 13.4 g/dL (12.0-15.0); Immature Granulocytes Count 0.040 X10^3/uL (0.0-0.0); Mean Corp Hgb Conc 32.2 g/dL (32-36); Mean Corpuscular Volume 93.1 fL (81-99); Mean Platelet Vol. 10.9 fl (6.2-12.0); NRBC Flagged by Analyzer 0 % (0-5); Platelet Count 322 K/mm3 (150-450); RBC Distribution Width CV 12.8 % (11.6-14.6); RBC Distribution Width SD 43.8 fl (35.1-43.9); Red Blood Count 4.47 M/mm3 (4.2-5.4); White Blood Count 10.0 K/mm3 (4.4-11.0)
[2025-04-26 18:46] LABS: AST(SGOT) 29 U/L (<=31); Alanine Aminotransfer ALT/SGPT 31 U/L (<=34); Albumin, Serum 4.3 g/dL (3.4-4.8); Alkaline Phosphatase 101 U/L (35-104); Anion Gap 15 (5-15); BUN 36 mg/dL (4-19); BUN/Creat Ratio 26.9 RATIO (10-20); Calcium,Total 9.9 mg/dL (7.6-11.0); Carbon Dioxide 29.1 mmol/L (21.0-32.0); Chloride 97 mmol/L (98-108); Globulin 2.9 g/dL (2.2-4.2); Glucose 130 mg/dL (70-99); Potassium 4.0 mmol/L (3.3-5.1); Uric Acid 7.1 mg/dL (2.6-6.0)
== END | disposition home or self-care (01) ==
LOC: MTLAB 14:07
PROVIDERS: PCP Internal Medicine; Referring Provider Internal Medicine Rheumatology; Visit Provider Internal Medicine Rheumatology
DX: M06.09 Rheumatoid arthritis without rheumatoid factor, multiple sites (principal); Z79.899 Other long term (current) drug therapy; R76.8 Other specified abnormal immunological findings in serum; M19.041 Primary osteoarthritis, right hand; M19.042 Primary osteoarthritis, left hand; M35.00 Sjogren syndrome, unspecified
CPT/HCPCS: 36415; 80053; 84550; 85025

== ENCOUNTER → 2025-05-09 | Outpatient (CLI) | payer MEDICARE, SELFPAY | END | disposition home or self-care (01) | LOC: SL 20:05 | PROVIDERS: PCP Internal Medicine; Visit Provider Nurse Practitioner Acute Care | DX: G47.10 Hypersomnia, unspecified (principal) | CPT/HCPCS: 95810 ==

== ENCOUNTER → 2025-07-26 | Outpatient (CLI) | payer MEDICARE, SELFPAY ==
[2025-07-26 15:04] LABS: Hematocrit 40.9 % (37-47); Hemoglobin 13.3 g/dL (12.0-15.0); Immature Granulocytes Count 0.050 X10^3/uL (0.0-0.0); Mean Corp Hgb Conc 32.5 g/dL (32-36); Mean Corpuscular Volume 95.1 fL (81-99); Mean Platelet Vol. 10.3 fl (6.2-12.0); NRBC Flagged by Analyzer 0 % (0-5); Platelet Count 252 K/mm3 (150-450); RBC Distribution Width CV 15.2 % (11.6-14.6); RBC Distribution Width SD 53.1 fl (35.1-43.9); Red Blood Count 4.30 M/mm3 (4.2-5.4); White Blood Count 8.9 K/mm3 (4.4-11.0)
[2025-07-26 15:27] LABS: AST(SGOT) 41 U/L (<=31); Alanine Aminotransfer ALT/SGPT 57 U/L (<=34); Albumin, Serum 4.1 g/dL (3.4-4.8); Alkaline Phosphatase 64 U/L (35-104); Anion Gap 11 (7-18); BUN 41 mg/dL (4-19); BUN/Creat Ratio 25.2 RATIO (10-20); Calcium,Total 9.6 mg/dL (7.6-11.0); Carbon Dioxide 28.2 mmol/L (20.0-29.0); Chloride 101 mmol/L (96-106); Globulin 2.4 g/dL (2.2-4.2); Glucose 106 mg/dL (70-99); Potassium 5.2 mmol/L (3.5-5.1); Uric Acid 8.2 mg/dL (2.6-6.0)
== END | disposition home or self-care (01) ==
LOC: MTLAB 12:51
PROVIDERS: PCP Internal Medicine; Referring Provider Internal Medicine Rheumatology; Visit Provider Internal Medicine Rheumatology
DX: M06.041 Rheumatoid arthritis without rheumatoid factor, right hand (principal); Z79.899 Other long term (current) drug therapy; R76.89 Other specified abnormal immunological findings in serum; M19.041 Primary osteoarthritis, right hand; M19.042 Primary osteoarthritis, left hand; M35.00 Sjogren syndrome, unspecified
CPT/HCPCS: 36415; 80053; 84550; 85025